=== PATIENT | female | born 1940 | race African-American/Black ===

== ENCOUNTER 2017-04-09 12:41 | Inpatient (IN) | payer OTHER, BC ==
[2017-04-09 12:47] VITALS: BMI 28.8
[2017-04-09] MEDS ORDERED: CLINDAMYCIN IVPB 300 MG in DEXTROSE 5%-WATER - 48 ML IVPB ONE (13:55)
[2017-04-09] MEDS ORDERED: CLINDAMYCIN PHOSPHATE 600 MG/4 ML VIAL ONE (14:29)
[2017-04-09 14:36] LABS: BASOPHIL 1.3 % (0-2.0); EOSINOPHIL 0.9 % (0-4.5); MCHC 32.7 g/dl (32.0-36.0); MEAN CELL VOLUME 85.8 fl (80-96); MEAN PLT VOLUME 7.8 fl (7.5-11.1); NEUTROPHILS 84.6 % (42.8-82.8); PLATELET COUNT 483 K/MM3 (134-434); RDW 14.5 % (11.6-15.6); WHITE BLOOD COUNT 13.8 K/mm3 (4.0-10.0)
--- NOTE | 2017-04-09 14:40 | PDOC ---
History of Present Illness - General Chief Complaint: Wound Infection Stated Complaint: LEGS PAIN, ADMIT (PCP SENT) Time Seen by Provider: 04/09/17 13:29 History Source: Patient Exam Limitations: No Limitations - History of Present Illness Initial Comments: 04/09/17 13:46 87-year-old female sent in by Dr. Silvestre for evaluation of nonhealing chronic lower extremity wounds now suggestive of cellulitis. Patient states was seen earlier this week and then again today for redness and swelling of the thumb left lower extremity now with a draining wound to the side of left ankle. Patient denies fever, chills but does state pain and redness to the area. Patient states had an ultrasound a few days ago which was negative for DVT. Patient does have history of MRSA. Patient also states history of chronic venous stasis. Timing/Duration: getting worse Severity: moderate Associated Symptoms: reports: denies symptoms Past History - Travel Traveled outside of the country in the last 30 days: No Close contact w/someone who was outside of country & ill: No - Past Medical History Allergies/Adverse Reactions: Allergies Allergy/AdvReac Type Severity Reaction Status Date / Time Sulfa (Sulfonamide Allergy Severe Verified 04/09/17 12:43 Antibiotics) Home Medications: Ambulatory Orders Levothyroxine [Synthroid -] 100 mcg PO DAILY 03/23/14 Anemia: No Asthma: No Cancer: No Cardiac Disorders: No CVA: No COPD: No CHF: No Dementia: No Diabetes: No GI Disorders: No Disorders: No HTN: Yes (BORDERLINE) Hypercholesterolemia: No Liver Disease: No Seizures: No Thyroid Disease: Yes (HYPO) Other medical history: VENOUS STASIS - Surgical History Abdominal Surgery: Yes (ABDOMINAL SX WHILE , INTESTINAL OBSRU 1970) Appendectomy: No Cardiac Surgery: No Cholecystectomy: No Lung Surgery: No Neurologic Surgery: No Orthopedic Surgery: No - Suicide/Smoking/Psychosocial Hx Smoking History: Never smoked Have you smoked in the past 12 months: No If you are a former smoker, when did you quit?: 30 years ago Information on smoking cessation initiated: No Hx Alcohol Use: No Drug/Substance Use Hx: No Substance Use Type: None Hx Substance Use Treatment: No Patient Lives Alone: Yes Lives with/in: lives alone Review of Systems - Review of Systems Able to Perform ROS?: Yes Is the patient limited Jordanian proficient: No Constitutional: No: Symptoms Reported HEENTM: No: Symptoms Reported Respiratory: No: Symptoms reported Cardiac (ROS): Yes: Edema ABD/GI: No: Symptoms Reported Musculoskeletal: Yes: Muscle Pain (left calf) Integumentary: Yes: Erythema Neurological: No: Symptoms reported Hematologic/Lymphatic: No: Symptoms Reported *Physical Exam - Vital Signs Last Vital Signs Temp Pulse Resp BP Pulse Ox 98.2 F 84 18 152/82 100 04/09/17 12:44 04/09/17 12:44 04/09/17 12:44 04/09/17 12:44 04/09/17 12:44 - Physical Exam General Appearance: Yes: Nourished, Appropriately Dressed. No: Apparent Distress HEENT: negative: Pale Conjunctivae Respiratory/Chest: positive: Lungs Clear, Normal Breath Sounds. negative: Respiratory Distress, Accessory Muscle Use Cardiovascular: positive: Regular Rhythm, Regular Rate. negative: Murmur Extremity: positive: Normal Capillary Refill, Normal Range of Motion, Tender ( the erythema to the distal aspect of left lower extremity with 1 x 2cm opened wound to the lateral aspect of malleolus. ) Integumentary: positive: Other (8 x 5 cm opened pink wound to the medial aspect of right malleolus) Neurologic: positive: Motor Strength 5/5 Heart Score/ECG Review - ECG Intrepretation Rhythm: Regular Rhythm (rate 73. normal sinus rhythm.) - [place]: Left [place] Deviation ED Treatment Course - LABORATORY CBC & Chemistry Diagram: 04/11/17 07:00 04/11/17 07:00 - RADIOLOGY Radiology Studies Ordered: Category Date Time Status CHEST X-RAY PORTABLE* [RAD] Stat Radiology 04/09/17 13:53 Ordered Medical Decision Making - Medical Decision Making 04/09/17 14:58 Patient here for a nonhealing chronic leg wounds from venous stasis now with redness and swelling to the left lower extremity. Patient had a duplex done 2 days ago which was negative now sent here by Dr. Silvestre for admission and treatment of cellulitis. Septic workup initiated. Patient ordered for clindamycin Since patient has history of MRSA 04/09/17 15:52 Laboratory Tests 04/09/17 04/09/17 04/09/17 13:20 14:23 14:23 WBC 13.8 H D Hgb 9.7 L D Hct 29.6 L Plt Count 483 H D Neutrophils % 84.6 H D PT with INR 15.60 H INR 1.41 H Creatine Kinase Troponin I Urine Protein 2+ H Urine Blood 3+ H Urine Urobilinogen Negative Urine RBC 83 Urine WBC 41 04/09/17 14:23 WBC Hgb Hct Plt Count Neutrophils % PT with INR INR Creatine Kinase 205 H Troponin I 0.11 H Urine Protein Urine Blood Urine Urobilinogen Urine RBC Urine WBC Chest x-ray negative for acute findings. As per Dr. Silvestre he is requesting that is affiliated at [facility] with affiliation at [facility]. *DC/Admit/Observation/Transfer Diagnosis at time of Disposition: Cellulitis Qualifiers: Site of cellulitis: extremity Site of cellulitis of extremity: lower extremity Laterality: unspecified laterality Qualified Code(s): L03.119 - Cellulitis of unspecified part of limb - Discharge Dispostion Admit: Yes
[2017-04-09 14:48] LABS: INR 1.41 (0.82-1.09); PROTHROMBIN TIME (PATIENT) 15.6 SEC (9.98-11.88)
[2017-04-09 15:00] LABS: ANION GAP 11 (8-16); BILIRUBIN,TOTAL 0.6 mg/dL (0.2-1.0); CALCIUM 9.1 mg/dL (8.5-10.1); CO2 27 mmol/L (21-32); CREATININE 1.5 mg/dL (0.55-1.02); GLUCOSE,RANDOM 115 mg/dL (74-106); SGPT/ALT 20 U/L (12-78); TOT PROT 7.3 g/dl (6.4-8.2)
[2017-04-09 15:02] LABS: ALK PHOS 84 U/L (45-117); TROPONIN I 0.11 ng/ml (0.00-0.05)
[2017-04-09 15:04] LABS: CPK 205 IU/L (26-192); SGOT/AST 27 U/L (15-37)
[2017-04-09 15:35] LABS: URINE APPEARANCE CLOUDY; URINE BILIRUBIN NEGATIVE (NEGATIVE); URINE BLOOD 3+ (NEGATIVE); URINE COLOR YELLOW; URINE GLUCOSE (UA) NEGATIVE (NEGATIVE); URINE KETONE NEGATIVE (NEGATIVE); URINE NITRITE NEGATIVE (NEGATIVE); URINE UROBILINOGEN NEGATIVE mg/dL (0.2-1.0)
[2017-04-09 15:37] LABS: URINE LEUK ESTERASE 1+ (NEGATIVE); URINE PROTEIN 2+ (NEGATIVE)
[2017-04-09 15:39] LABS: GRANULAR CASTS 8 /lpf; URINE HYALINE CAST 1 /lpf; URINE MUCUS RARE; URINE RBC 83 /hpf (0-3); URINE WBC 41 /hpf (3-5)
[2017-04-09] MEDS ORDERED: VANCOMYCIN 1,250 MG in DEXTROSE 5%-WATER - 250 ML IVPB ONE (17:25)
[2017-04-09] MEDS ORDERED: PIPERACILLIN/TAZOB 3.375 GM 3.375 GM in DEXTROSE 5%-WATER - 50 ML IVPB ONE (17:26)
[2017-04-09] MEDS ORDERED: ASPIRIN 325 MG TABLET PO ONE (17:30)
--- NOTE | 2017-04-09 17:39 | HP ---
CHIEF COMPLAINT: worsening chronic venous ulcers PCP: none HISTORY OF PRESENT ILLNESS: This is an 77 year old female with PMHx of nonhealing chronic RLE venous ulcer, borderline hypertension, polymyalgia, hypothyroidism, who was sent into the ED by Dr. Silvestre for b/l lower extremity cellulitis. The patient reports that she has had her RLE ulcer for about 1 year now. In the past few weeks, she has noticed that there is increased drainage from her LLE wound and more erythema. She reports more erythema and had a doppler that was negative for DVT a few days ago. The patient denies any fever, chills, shortness of breath, dizziness, headache, chest pain. Off note, the patient reports receiving treatment for pneumonia 3 weeks ago ( erythromycin and methylprenisolone) ER course was notable for: (1) WBC 18, Hgb 9.7, Hct 29.6, platelets 483, ESR 53, (2) Cr 1.5 (3) Trop 0.11 (4) EKG with NSR Recent Travel: denies PAST MEDICAL HISTORY: as above Social History: Smoking: denies Alcohol: denies Drugs: denies Family History: Allergies Sulfa (Sulfonamide Antibiotics) Allergy (Severe, Verified 04/09/17 12:43) "TONGUE SWELLED" HOME MEDICATIONS: Home Medications Medication Instructions Recorded Levothyroxine [Synthroid -] 100 mcg PO DAILY 03/23/14 Collagenase Clostridium Hist. 1 applic TP DAILY #90 applic 04/20/16 [Santyl] REVIEW OF SYSTEMS CONSTITUTIONAL: Absent: fever, chills, diaphoresis, generalized weakness, malaise, loss of appetite, weight change HEENT: Absent: rhinorrhea, nasal congestion, throat pain, throat swelling, difficulty swallowing, mouth swelling, ear pain, eye pain, visual changes CARDIOVASCULAR: Absent: chest pain, syncope, palpitations, irregular heart rate , lightheadedness, peripheral edema RESPIRATORY: Absent: cough, shortness of breath, dyspnea with exertion, orthopnea, wheezing, stridor, hemoptysis GASTROINTESTINAL:Absent: abdominal pain, abdominal distension, nausea, vomiting , diarrhea, constipation, melena, hematochezia GENITOURINARY: Absent: dysuria, frequency, urgency, hesitancy, hematuria, flank pain, genital pain MUSCULOSKELETAL: Absent: myalgia, arthralgia, joint swelling, back pain, neck pain SKIN: Chronic wounds x1 year to lower extremities. See above. Absent: rash, itching, pallor HEMATOLOGIC/IMMUNOLOGIC: Absent: easy bleeding, easy bruising, lymphadenopathy, frequent infections ENDOCRINE:Absent: unexplained weight gain, unexplained weight loss, heat intolerance, cold intolerance NEUROLOGIC: Absent: headache, focal weakness or paresthesias, dizziness, unsteady gait, seizure, mental status changes, bladder or bowel incontinence PHYSICAL EXAMINATION Vital Signs - 24 hr 04/09/17 12:44 Temperature 98.2 F Pulse Rate 84 Respiratory 18 Rate Blood Pressure 152/82 O2 Sat by Pulse 100 Oximetry (%) GENERAL: Awake, alert, and fully oriented, in no acute distress. HEAD: Normal with no signs of trauma. EYES: Pupils equal, round, sclera anicteric, conjunctiva clear. No lid lag. EARS, NOSE, THROAT: Ears normal. Moist mucous membranes. NECK: Normal range of motion LUNGS: Breath sounds equal, clear to auscultation bilaterally. No wheezes, and no crackles. No accessory muscle use. HEART: Regular rate and rhythm, normal S1 and S2 ABDOMEN: Soft, nontender, not distended, normoactive bowel sounds MUSCULOSKELETAL: Normal range of motion at all joints. No bony deformities or tenderness. No CVA tenderness. UPPER EXTREMITIES: 2+ pulses, warm, well-perfused. No cyanosis. No clubbing. No peripheral edema. LOWER EXTREMITIES: B/l lower extremity erythema, edema. Right medial ankle wound , mild odor. Left ankle wound. 2+ pulses, warm, well-perfused. NEUROLOGICAL: Cranial nerves II-XII intact. Normal speech. Normal gait. PSYCHIATRIC: Cooperative. Good eye contact. Appropriate mood and affect. CBCD WBC 13.8 K/mm3 (4.0-10.0) H D 04/09/17 14:23 RBC 3.45 M/mm3 (3.60-5.2) L 04/09/17 14:23 Hgb 9.7 GM/dL (10.7-15.3) L D 04/09/17 14:23 Hct 29.6 % (32.4-45.2) L 04/09/17 14:23 MCV 85.8 fl (80-96) 04/09/17 14:23 MCHC 32.7 g/dl (32.0-36.0) 04/09/17 14:23 RDW 14.5 % (11.6-15.6) 04/09/17 14:23 Plt Count 483 K/MM3 (134-434) H D 04/09/17 14:23 MPV 7.8 fl (7.5-11.1) 04/09/17 14:23 CMP Sodium 141 mmol/L (136-145) 04/09/17 14:23 Potassium 4.5 mmol/L (3.5-5.1) D 04/09/17 14:23 Chloride 103 mmol/L (98-107) 04/09/17 14:23 Carbon Dioxide 27 mmol/L (21-32) 04/09/17 14:23 Anion Gap 11 (8-16) 04/09/17 14:23 BUN 25 mg/dL (7-18) H D 04/09/17 14:23 Creatinine 1.5 mg/dL (0.55-1.02) H D 04/09/17 14:23 Creat Clearance w eGFR 33.76 (>60) 04/09/17 14:23 Random Glucose 115 mg/dL (74-106) H 04/09/17 14:23 Calcium 9.1 mg/dL (8.5-10.1) 04/09/17 14:23 Total Bilirubin 0.6 mg/dL (0.2-1.0) D 04/09/17 14:23 AST 27 U/L (15-37) D 04/09/17 14:23 ALT 20 U/L (12-78) 04/09/17 14:23 Alkaline Phosphatase 84 U/L (45-117) 04/09/17 14:23 Total Protein 7.3 g/dl (6.4-8.2) 04/09/17 14:23 Albumin 3.0 g/dl (3.4-5.0) L 04/09/17 14:23 CARDIAC ENZYMES Creatine Kinase 205 IU/L (26-192) H 04/09/17 14:23 Troponin I 0.11 ng/ml (0.00-0.05) H 04/09/17 14:23 Assessment: This is an 77 year old female with PMHx of nonhealing chronic RLE venous ulcer, borderline hypertension, polymyalgia, hypothyroidism, who was sent into the ED by Dr. Nirmala for b/l lower extremity cellulitis. Plan: 1) ID: B/l lower extremity cellulitis with chronic lower extremity ulcers - WBC elevated - Local wound care - Hx of MRSA, VRE, pseudomonas - Will give Vanco and Zosyn - F/u ID consult 2) Cardiology: Elevated troponin (0.11) - EKG NSR - F/u trop x2 - No evidence of ACS at this time - ASA 325 mg po once - Discussed with Dr. Alvarez who will evaluate the patient 3) : MYRTLE? - Cr 0.9 when she was here in 2013 - F/u labs in AM - If remains elevated, f/u urine studies (FeNa) and kidney/bladder ultrasound 4) Endocrine: hypothyroidism - Continue Synthroid 5) F/E/N: - Sodium controlled diet - Monitor electrolytes 6) Prophylaxis: - OOB ambulating - Heparin 5,000u sq q8h 7) Dispo: - Requires continued inpatient care CODE STATUS: FULL CODE Problem List - Problem (1) Cellulitis Code(s): L03.90 - CELLULITIS, UNSPECIFIED Qualifiers: Site of cellulitis: extremity Site of cellulitis of extremity: lower extremity Laterality: unspecified laterality Qualified Code(s): L03.119 - Cellulitis of unspecified part of limb (2) Wound infection Code(s): T14.8 - OTHER INJURY OF UNSPECIFIED BODY REGION L08.9 - LOCAL INFECTION OF THE SKIN AND SUBCUTANEOUS TISSUE, UNSP (3) Hypothyroid Code(s): E03.9 - HYPOTHYROIDISM, UNSPECIFIED (4) Elevated troponin Code(s): R74.8 - ABNORMAL LEVELS OF OTHER SERUM ENZYMES (5) Acute kidney injury Code(s): N17.9 - ACUTE KIDNEY FAILURE, UNSPECIFIED Visit type - Emergency Visit Emergency Visit: Yes Care time: The patient presented to the Emergency Department on the above date and was hospitalized for further evaluation of their emergent condition. - New Patient This patient is new to me today: Yes Date on this admission: 04/09/17 - Critical Care Critical Care patient: No
[2017-04-09] MEDS ORDERED: HEPARIN NA (PORCINE) 5,000 UNITS/ML 1ML VIAL ONE (19:07)
[2017-04-09] MEDS ORDERED: ASPIRIN 325 MG TABLET ONE (19:07)
[2017-04-09] MEDS ORDERED: PIPERACILLIN/TAZOB 3.375 GM 50 ML IVPB ONE (19:07)
[2017-04-09] MEDS: HEPARIN NA (PORCINE) 5,000 UNITS/ML 1ML VIAL SQ SCH (19:14)
--- NOTE | 2017-04-09 20:21 | EKG ---
Test Reason : Blood Pressure : / mmHG Vent. Rate : 073 BPM Atrial Rate : 073 BPM P-R Int : 142 ms QRS Dur : 088 ms QT Int : 402 ms P-R-T Axes : 038 -37 034 degrees QTc Int : 442 ms NORMAL SINUS RHYTHM LEFT AXIS DEVIATION VOLTAGE CRITERIA FOR LEFT VENTRICULAR HYPERTROPHY CANNOT RULE OUT SEPTAL INFARCT , AGE UNDETERMINED LEFT ANTERIOR FASCICULAR BLOCK ABNORMAL ECG WHEN COMPARED WITH ECG OF 20-APR-2014 22:14, NONSPECIFIC T WAVE ABNORMALITY NO LONGER EVIDENT IN INFERIOR LEADS ABSENCE OF PVCs REPEAT EKG IF CLINICALLY INDICATED Confirmed by RDAHA CHAPARRO MD ([id number]) on 04/09/2017 8:21:40 PM Referred By: Confirmed By:RADHA CHAPARRO MD
--- NOTE | 2017-04-09 21:46 | CON.CARD ---
Consult Consult Specialty:: cardiology - History of Present Illness History of Present Illness: 87-year-old black female sent in by Dr. Silvestre for evaluation of nonhealing chronic lower extremity wounds now suggestive of cellulitis. Patient states was seen earlier this week and then again today for redness and swelling of the thumb, bilateral lower extremity wounds and swelling, now with a draining wound to the side of left ankle. Patient denies fever, chills but does state pain and redness to the area. Patient states had an ultrasound a few days ago which was negative for DVT. Patient does have history of MRSA. Patient also states history of chronic venous stasis. Timing/Duration: getting worse Severity: moderate Associated Symptoms: reports: denies symptoms - History Source History Provided By: Patient, Medical Record Limitations to Obtaining History: No Limitations - Past Medical History Cardio/Vascular: Yes: HTN Renal/: Yes: Renal Inusuff Reproductive: Yes: Postmenopausal ...: No Heme/Onc: Yes: Anemia Endocrine: Yes: Hypothyroidism Dermatology: Yes: Other (open LE wounds) - Past Surgical History Additional Surgical History: excision debridement of right ankle ulcer 2013 - Alcohol/Substance Use Hx Alcohol Use: No - Smoking History Smoking history: Never smoked Have you smoked in the past 12 months: No If you are a former smoker, when did you quit?: 30 years ago Home Medications - Allergies Allergies/Adverse Reactions: Allergies Allergy/AdvReac Type Severity Reaction Status Date / Time Sulfa (Sulfonamide Allergy Severe Verified 04/09/17 12:43 Antibiotics) - Home Medications Home Medications: Ambulatory Orders Levothyroxine [Synthroid -] 100 mcg PO DAILY 03/23/14 Family Disease History - Family Disease History Family History: Denies Review of Systems - Review of Systems Constitutional: reports: Weakness Eyes: reports: No Symptoms HENT: reports: No Symptoms Neck: reports: No Symptoms Cardiovascular: reports: No Symptoms Respiratory: reports: No Symptoms Gastrointestinal: reports: No Symptoms Genitourinary: reports: No Symptoms Breasts: reports: No Symptoms Reported Musculoskeletal: reports: Muscle Weakness Integumentary: reports: Wound Neurological: reports: No Symptoms Endocrine: reports: No Symptoms Hematology/Lymphatic: reports: No Symptoms Psychiatric: reports: No Symptoms - Risk Factors Known Risk Factors: Yes: Age, Physical Inactivity, Race, Other (PAD; CHF) Vital Signs: Vital Signs Temperature 98.2 F 04/09/17 12:44 Pulse Rate 84 04/09/17 18:55 Respiratory Rate 18 04/09/17 18:55 Blood Pressure 131/75 04/09/17 18:55 O2 Sat by Pulse Oximetry (%) 100 04/09/17 12:44 Constitutional: Yes: Calm Eyes: Yes: WNL HENT: Yes: WNL Neck: Yes: WNL Respiratory: Yes: Regular Gastrointestinal: Yes: Soft Renal/: No: Anuria Cardiovascular: Yes: Regular Rate and Rhythm JVD: No Carotid Bruit: No PMI: Non-Displaced Heart Sounds: Yes: S1, S2 Murmur: Yes: Systolic Murmur, Grade 2 Extremities: Yes: Cool Edema: No Peripheral Pulses WNL: No Peripheral Pulses: 1+ Left Doralis Pedis, 1+ Right Dorsalis Pedis Integumentary: Yes: Venous Stasis Changes, Other (right ankle wound bandaged ( dry)) - Other Data Labs, Other Data: INR, PTT INR 1.41 (0.82-1.09) H 04/09/17 14:23 Troponin, BNP 04/09/17 19:30 Troponin I 0.09 H Troponin, BNP 04/09/17 19:30 Troponin I 0.09 H Imaging - Results EKG: Image Reviewed (NSR; LVH; Qs in V1 and V2 (r/o old septal infarct); LAFB) Problem List - Problems (1) Acute kidney injury Code(s): N17.9 - ACUTE KIDNEY FAILURE, UNSPECIFIED (2) Cellulitis Code(s): L03.90 - CELLULITIS, UNSPECIFIED Qualifiers: Site of cellulitis: extremity Site of cellulitis of extremity: lower extremity Laterality: unspecified laterality Qualified Code(s): L03.119 - Cellulitis of unspecified part of limb (3) Elevated troponin Assessment/Plan: 0.11; normal CK. F/u TNI serially. ECHO for LVEF, wall motion, valve status. Multiple cardiac risks (age; CHF; HTN; ?lipids; sedentary). Denies prior cardiac workup. Stress MIBI when stable, if not done recently. Code(s): R74.8 - ABNORMAL LEVELS OF OTHER SERUM ENZYMES (4) Hypothyroid Assessment/Plan: f/u TSH. F/u lipid levels. Code(s): E03.9 - HYPOTHYROIDISM, UNSPECIFIED (5) Wound infection Assessment/Plan: f/u with vascular surgeon. Code(s): T14.8 - OTHER INJURY OF UNSPECIFIED BODY REGION L08.9 - LOCAL INFECTION OF THE SKIN AND SUBCUTANEOUS TISSUE, UNSP
[2017-04-10] MEDS: HEPARIN NA (PORCINE) 5,000 UNITS/ML 1ML VIAL SQ SCH ×3 (01:27→17:16)
[2017-04-10] MEDS ORDERED: oxyCODONE HCL 5 MG TABLET PO ONE (01:45)
[2017-04-10] MEDS ORDERED: ACETAMINOPHEN 325 MG TABLET (FP) PO ONE (01:45)
[2017-04-10] MEDS: LEVOTHYROXINE NA 100 MCG TABLET (FP) PO SCH (07:03)
[2017-04-10 07:16] LABS: BASOPHIL 1.1 % (0-2.0); EOSINOPHIL 3.2 % (0-4.5); MCH 28.9 pg (25.7-33.7); MCHC 33.6 g/dl (32.0-36.0); MEAN CELL VOLUME 85.8 fl (80-96); MEAN PLT VOLUME 7.8 fl (7.5-11.1); NEUTROPHILS 73.8 % (42.8-82.8); PLATELET COUNT 390 K/MM3 (134-434); RDW 14.7 % (11.6-15.6)
[2017-04-10 07:42] LABS: ALBUMIN 2.2 g/dl (3.4-5.0); ANION GAP 7 (8-16); CALCIUM 7.8 mg/dL (8.5-10.1); CO2 26 mmol/L (21-32); CREATININE 1.6 mg/dL (0.55-1.02); GLUCOSE,RANDOM 86 mg/dL (74-106); SGOT/AST 15 U/L (15-37); SGPT/ALT 14 U/L (12-78)
[2017-04-10 07:45] LABS: ALK PHOS 68 U/L (45-117); BILIRUBIN,TOTAL 0.4 mg/dL (0.2-1.0); TOT PROT 5.6 g/dl (6.4-8.2)
[2017-04-10] MEDS ORDERED: morphine CARPU-JECT 2 MG/1 ML DISP.SYRIN IVPUSH ONE (08:45)
[2017-04-10 08:53] LABS: CPK 95 IU/L (26-192)
--- NOTE | 2017-04-10 08:53 | PN ---
Physical Exam: SUBJECTIVE: Patient seen and examined. She complains of pain, she is exquisitely tender to her LLE. Denies fever, chills, nausea. OBJECTIVE: Vital Signs Period Temp Pulse Resp BP Sys/Horn Pulse Ox Last 24 Hr 98.3 F-98.5 F 64-84 18-20 120-131/57-75 94-94 PE Neuro: alert, awake, cn 2-12intact Pulm: CTAB CV: s1 s2 rrr no mrg Abd: s nt nd +bs Ext: RLE medial open wound clean, pink, mild slough, LLE erythema to ankle, ++ tenderness to ankle, + DP pulse, warm, L foot closed lateral wound Laboratory Results - last 24 hr 04/09/17 04/10/17 04/10/17 19:30 06:10 06:10 WBC 10.0 RBC 2.86 L Hgb 8.3 L D Hct 24.5 L D MCV 85.8 MCH 28.9 MCHC 33.6 RDW 14.7 Plt Count 390 MPV 7.8 Neutrophils % 73.8 Lymphocytes % 15.3 D Monocytes % 6.6 Eosinophils % 3.2 D Basophils % 1.1 Sodium 139 Potassium 4.1 Chloride 106 Carbon Dioxide 26 Anion Gap 7 L BUN 28 H Creatinine 1.6 H Creat Clearance w eGFR 31.34 Random Glucose 86 D Calcium 7.8 L Total Bilirubin 0.4 D AST 15 D ALT 14 D Alkaline Phosphatase 68 Creatine Kinase Cancelled Troponin I Cancelled Total Protein 5.6 L D Albumin 2.2 L D Active Medications Generic Name Dose Route Start Last Admin Trade Name Freq PRN Reason Stop Dose Admin Aspirin 81 mg 04/10/17 10:00 Asa - PO DAILY MILES Collagenase 1 applic 04/10/17 10:00 Santyl - TP DAILY MILES Heparin Sodium (Porcine) 5,000 unit 04/09/17 18:00 04/10/17 01:27 Heparin - SQ 5,000 unit Q8H-IV MILES Administration Sodium Chloride 1,000 mls @ 100 mls/hr 04/10/17 08:45 Normal Saline - IV ASDIR MILES Levothyroxine Sodium 100 mcg 04/10/17 07:00 04/10/17 07:03 Synthroid - PO 100 mcg DAILY@0700 MILES Administration Morphine Sulfate 1 mg 04/10/17 08:45 Morphine Injection - IVPUSH 04/10/17 08:46 ONCE ONE Ondansetron HCl 4 mg 04/10/17 08:46 Zofran Injection IVPB Q6H PRN NAUSEA Oxycodone HCl 5 mg 04/10/17 08:46 Roxicodone - PO Q4H PRN PAIN Assessment: 77 year old female with PMHx of non healing chronic RLE venous ulcer , borderline hypertension, polymyalgia, hypothyroidism, sent to ED by Dr. Silvestre for b/l lower extremity cellulitis. Plan: 1. B/l lower extremity cellulitis with chronic lower extremity ulcers - Hx of MRSA, VRE, pseudomonas - Leukocytosis wnl - Local wound care - Zosyn and vanco x1 dose given yesterday - Further antibiotics per ID today - Dr. Silvestre to follow 2. Elevated troponin - x2 trop down, AM trop pending - No ischemic events noted on tele - ECHO today - Stress when medically stable - Continue ASA 3. MYRTLE? - Previous cr 0.9 in 2013 - Start fluids today - Will trend, if worsens will obtain renal studies 4. Hypothyroidism - TSH pending - Continue Synthroid 5. Prophylaxis - OOB ambulating - Heparin 5000sq q8 Visit type - Emergency Visit Emergency Visit: Yes ED Registration Date: 04/09/17 Care time: The patient presented to the Emergency Department on the above date and was hospitalized for further evaluation of their emergent condition. - New Patient This patient is new to me today: Yes Date on this admission: 04/10/17 - Critical Care Critical Care patient: No
[2017-04-10 09:00] LABS: TROPONIN I 0.08 ng/ml (0.00-0.05)
[2017-04-10] MEDS: SODIUM CHLORIDE 1,000 ML IV SCH (09:05)
[2017-04-10] MEDS ORDERED: BISACODYL 5 MG TABLET.DR (FP) PO ONE (09:30)
--- NOTE | 2017-04-10 09:34 | PN ---
Progress Note (short form) - Note Progress Note: ID consult dictated imp/reccd severe left leg pain and swelling with erythema has had this for last 3 weeks and worsening had ultrasound last week in Dr Kent office told veins were ok no fevers worsening pain, cannot ambulate recent pneumonia treated with zithromax and steroids- didnot help her leg history of polymyalgia history of venous stasis ulcer right ulcer- medial malleolus-had healed completely in the past, now back for the last one year +DP pulse pain and erythema left foot and lower leg- not sure this is a true infection, ? vasculitis- ie lipodermatosclerosis? will d/w vascular surgery esr/crp in am renal insuff (+NSAIA use) history of MRSA/pseudomonas agree with vancomycin based on levels zosyn adjusted for renal insufficiency d/w hospitalist Problem List - Problems (1) Cellulitis Code(s): L03.90 - CELLULITIS, UNSPECIFIED Qualifiers: Site of cellulitis: extremity Site of cellulitis of extremity: lower extremity Laterality: unspecified laterality Qualified Code(s): L03.119 - Cellulitis of unspecified part of limb (2) Acute kidney injury Code(s): N17.9 - ACUTE KIDNEY FAILURE, UNSPECIFIED
--- NOTE | 2017-04-10 09:48 | PN ---
Progress Note, Physician History of Present Illness: 87-year-old black female sent in by Dr. Silvestre for evaluation of nonhealing chronic lower extremity wounds now suggestive of cellulitis. Patient states was seen earlier this week and then again today for redness and swelling of the thumb, bilateral lower extremity wounds and swelling, now with a draining wound to the side of left ankle. Patient denies fever, chills but does state pain and redness to the area. Patient states had an ultrasound a few days ago which was negative for DVT. Patient does have history of MRSA. Patient also states history of chronic venous stasis. - Current Medication List Current Medications: Active Medications Aspirin (Asa -) 81 mg PO DAILY [facility] Collagenase (Santyl -) 1 applic TP DAILY [facility] Docusate Sodium (Colace -) 100 mg PO BID [facility] Heparin Sodium (Porcine) (Heparin -) 5,000 unit SQ Q8H-IV [facility] Last Admin: 04/10/17 01:27 Dose: 5,000 unit Sodium Chloride (Normal Saline -) 1,000 mls @ 100 mls/hr IV ASDIR [facility] Last Admin: 04/10/17 09:05 Dose: 100 mls/hr Levothyroxine Sodium (Synthroid -) 100 mcg PO DAILY@0700 [facility] Last Admin: 04/10/17 07:03 Dose: 100 mcg Ondansetron HCl (Zofran Injection) 4 mg IVPB Q6H PRN PRN Reason: NAUSEA Oxycodone HCl (Roxicodone -) 5 mg PO Q4H PRN PRN Reason: PAIN Polyethylene Glycol (Miralax (For Daily Use) -) 17 gm PO DAILY [facility] Senna (Senna -) 1 tab PO HS [facility] - Objective Vital Signs: Vital Signs Temperature 98.3 F 04/10/17 05:55 Pulse Rate 72 04/10/17 05:55 Respiratory Rate 18 04/10/17 05:55 Blood Pressure 120/57 04/10/17 05:55 O2 Sat by Pulse Oximetry (%) 94 L 04/10/17 00:00 Eyes: Yes: WNL, Conjunctiva Clear, EOM Intact HENT: Yes: WNL, Atraumatic, Normocephalic Neck: Yes: WNL, Supple, Trachea Midline Cardiovascular: Yes: WNL, Regular Rate and Rhythm, Murmur, S1, S2 Respiratory: Yes: WNL, Regular, CTA Bilaterally Gastrointestinal: Yes: WNL, Normal Bowel Sounds Genitourinary: Yes: WNL Musculoskeletal: Yes: WNL Extremities: Yes: WNL Edema: Yes Edema: LLE: 1+, RLE: 1+ Integumentary: Yes: WNL Neurological: Yes: WNL, Alert, Oriented ...Motor Strength: WNL Psychiatric: Yes: WNL Labs: CBC, BMP 04/10/17 06:10 04/10/17 06:10 INR, PTT INR 1.41 (0.82-1.09) H 04/09/17 14:23 Assessment/Plan Problems (1) Acute kidney injury Code(s): N17.9 - ACUTE KIDNEY FAILURE, UNSPECIFIED (2) Cellulitis Code(s): L03.90 - CELLULITIS, UNSPECIFIED Qualifiers: Site of cellulitis: extremity Site of cellulitis of extremity: lower extremity Laterality: unspecified laterality Qualified Code(s): L03.119 - Cellulitis of unspecified part of limb (3) Elevated troponin Assessment/Plan: 0.11; normal CK. F/u TNI serially. ECHO for LVEF, wall motion, valve status. Multiple cardiac risks (age; CHF; HTN; ?lipids; sedentary). Denies prior cardiac workup. Stress MIBI when stable, if not done recently. Code(s): R74.8 - ABNORMAL LEVELS OF OTHER SERUM ENZYMES (4) Hypothyroid Assessment/Plan: f/u TSH. F/u lipid levels. Code(s): E03.9 - HYPOTHYROIDISM, UNSPECIFIED (5) Wound infection Assessment/Plan: f/u with vascular surgeon. Code(s): T14.8 - OTHER INJURY OF UNSPECIFIED BODY REGION L08.9 - LOCAL INFECTION OF THE SKIN AND SUBCUTANEOUS TISSUE, UNSP
[2017-04-10] MEDS ORDERED: PIPERACILLIN/TAZOB 3.375 GM/50 ML PRE-DOCKED IVPB SCH (10:00)
[2017-04-10] MEDS ORDERED: PIPERACILLIN/TAZOBACTAM 3.375 GM VIAL IVPB ONE ×2 (10:35→17:11)
[2017-04-10] MEDS ORDERED: PT OWN MED DRAWER 7, Y5N ONE ×2 (10:35→11:02)
[2017-04-10] MEDS ORDERED: DEXTROSE 5%-WATER - 50 ML IVPB ONE ×2 (10:36→17:12)
[2017-04-10] MEDS: PIPERACILLIN/TAZOB 3.375 GM 3.375 GM in DEXTROSE 5%-WATER - 50 ML IVPB SCH ×2 (10:39→17:16)
[2017-04-10] MEDS: ASPIRIN 81 MG CHEWABLE TABLETS PO SCH (10:40)
[2017-04-10] MEDS: DOCUSATE SODIUM 100 MG CAPSULE (FP) PO SCH ×2 (10:40→22:19)
[2017-04-10] MEDS: POLYETHYLENE GLYCOL 3350 119 GM BTL PO SCH (10:42)
--- NOTE | 2017-04-10 11:30 | EKG ---
Test Reason : Blood Pressure : / mmHG Vent. Rate : 082 BPM Atrial Rate : 082 BPM P-R Int : 162 ms QRS Dur : 094 ms QT Int : 412 ms P-R-T Axes : 042 -34 035 degrees QTc Int : 481 ms NORMAL SINUS RHYTHM LEFT AXIS DEVIATION VOLTAGE CRITERIA FOR LEFT VENTRICULAR HYPERTROPHY CANNOT RULE OUT SEPTAL INFARCT (CITED ON OR BEFORE 09-APR-2017) ABNORMAL ECG WHEN COMPARED WITH ECG OF 09-APR-2017 13:45, NO SIGNIFICANT CHANGE WAS FOUND Confirmed by AVELINO KUO, NATALIA ([id number]) on 04/10/2017 11:29:51 AM Referred By: Confirmed By:NATALIA YOU MD
--- NOTE | 2017-04-10 11:50 | CONSULT ---
Consult - History of Present Illness History of Present Illness: 77 year old woman with chronic venous stasis and ulcer of right ankle. SHe is scheduled for venous ablation right GSV in April. She presented last week with pain and swelling of the left leg. Duplex was negative for DVT. Yesterday she was seen with pain, redness and drainage from a new wound on the lateral left ankle area. - History Source History Provided By: Patient, Medical Record - Past Medical History Cardio/Vascular: Yes: HTN Renal/: Yes: Renal Inusuff ...: No Endocrine: Yes: Hypothyroidism Dermatology: Yes: Other (open LE wounds) - Past Surgical History Additional Surgical History: excision debridement of right ankle ulcer 2013 - Alcohol/Substance Use Hx Alcohol Use: No - Smoking History Smoking history: Never smoked Have you smoked in the past 12 months: No If you are a former smoker, when did you quit?: 30 years ago Home Medications - Allergies Allergies/Adverse Reactions: Allergies Allergy/AdvReac Type Severity Reaction Status Date / Time Sulfa (Sulfonamide Allergy Severe Verified 04/09/17 12:43 Antibiotics) - Home Medications Home Medications: Ambulatory Orders Levothyroxine [Synthroid -] 100 mcg PO DAILY 03/23/14 Physical Exam Vital Signs: Vital Signs Temperature 98.3 F 04/10/17 05:55 Pulse Rate 72 04/10/17 05:55 Respiratory Rate 18 04/10/17 05:55 Blood Pressure 120/57 04/10/17 05:55 O2 Sat by Pulse Oximetry (%) 94 L 04/10/17 00:00 Edema: Yes Edema: LLE: 2+, RLE: 2+ Wound/Incision: Yes: Other (Right medial malleolar ulcer with fibrinous exudate. Left lateral ankle blister with local erythema.) Labs: CBC, BMP 04/10/17 06:10 04/10/17 06:10 Problem List - Problems (1) Cellulitis Assessment/Plan: Improved exam since yesterday. Continue IV and topical antibiotics. Leg elevation. 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
[2017-04-10] MEDS ORDERED: MUPIROCIN 2% TOPICAL OINTMENT 22 GM TUBE TP SCH (12:00)
[2017-04-10] MEDS: COLLAGENASE CLOSTRIDIUM HIST. 30 GRAMS TUBE TP SCH (12:19)
[2017-04-10] MEDS: oxyCODONE HCL 5 MG TABLET PO PRN ×2 (13:33→22:21)
[2017-04-10] MEDS: ONDANSETRON 4 MG/2 ML VIAL IVPB PRN ×2 (13:39→23:06)
--- NOTE | 2017-04-10 19:10 | CONS ---
DATE OF CONSULTATION: DATE OF DICTATION: 04/10/2017 INFECTIOUS DISEASE CONSULTATION REQUESTING PHYSICIAN: Hospitalist Service CONSULTING PHYSICIAN: Funmi Sultana M.D. HISTORY OF PRESENT ILLNESS: This is a 77-year-old woman with a history of venous stasis and right leg venous stasis ulcer who was sent to the emergency room by Dr. Silvestre. She has a prior history of recurrent ulcers on her right leg. They have healed in the past back in 2014, recurred on the right medial malleolus about a year ago, and she has had a chronic ulcer since that time. Over the last 3 weeks she started having pain and erythema; in the left leg, the pain has reached a point where she is unable to ambulate. She has no fevers or chills. She had an outpatient duplex that was negative for DVT. She has had no fevers or chills. No scratches to her leg. ALLERGIES: She is allergic to SULFA drugs. MEDICATIONS AT HOME: Include Synthroid and Santyl. PAST MEDICAL HISTORY: Notable for borderline hypertension, she has a history of hypothyroidism, venous stasis ulcers. She has polymyalgia rheumatica and takes steroids p.r.n. She recently had pneumonia 3 weeks ago and was treated with Zithromax and steroids. SURGICAL HISTORY: Notable for thyroid surgery. FAMILY HISTORY: Noncontributory. SOCIAL HISTORY: She lives with her son. 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 She quit smoking 30 years ago. REVIEW OF SYSTEMS: She denies any cough. She denies any shortness of breath. She notes exquisite pain in the left leg. She has been taking Motrin for the last 3 weeks. She upped her Motrin dose to 3 tabs every 5 hours over the last 4-5 days due to increasing pain. She denies any trauma to her leg. PHYSICAL EXAMINATION: Vital signs: Temperature 98.3, pulse 72, blood pressure 120/57, respiratory rate 18. HEENT: Normocephalic. Eyes are anicteric. Neck: Supple. Lungs: Diminished breath sounds at the bases. Heart: Regular rate and rhythm. Abdomen: Soft, nontender. Extremities: Notable for a large left medial malleolar ulcer. It is clean. She has no surrounding erythema. She has a 2+ dorsalis pedis pulse. The left foot is warm. Again, palpable dorsalis pedis pulse. She has evidence of some erythema and discoloration of the lower leg, mainly around the ankle extending to her foot. It is erythematous and exquisitely tender to touch. The white count on admission was 13.8, this morning is 10, hemoglobin is 8.3, INR is 1.4. BUN and creatinine are 28 and 1.6. Normal LFTs. Her TSH is 19. Her urinalysis is 41 white cells. Cultures are pending. Chest x-ray shows some bibasilar changes versus infiltrates and with shallow inspiration. IMPRESSION: In summary, this is a 77-year-old woman with pain and erythema of the left foot, possible cellulitis. She has a history of methicillin resistant Staphylococcus aureus and pseudomonas in the past. Would agree with vancomycin and Zosyn. She has acute kidney injury, most likely secondary to nonsteroidal use. Would follow vancomycin levels and adjust the Zosyn dosage. I am not sure this is really a true infection of her leg. Concern would also include vasculitis, possibly lipodermatosclerosis. Will discuss with vascular. Will check a sedimentation rate and C-reactive protein as well. Further recommendations to follow. Rao [id number] MTDD
[2017-04-10] MEDS: SENNOSIDES 8.6MG TABLET (FP) PO SCH (22:18)
[2017-04-10] MEDS: MUPIROCIN CA 2% TOPICAL CREAM 15 GM TUBE TP SCH (22:19)
[2017-04-11] MEDS ORDERED: PIPERACILLIN/TAZOBACTAM 3.375 GM VIAL IVPB ONE ×3 (02:02→17:14)
[2017-04-11] MEDS ORDERED: DEXTROSE 5%-WATER - 50 ML IVPB ONE ×3 (02:03→17:14)
[2017-04-11] MEDS: HEPARIN NA (PORCINE) 5,000 UNITS/ML 1ML VIAL SQ SCH ×3 (02:10→18:16)
[2017-04-11] MEDS: PIPERACILLIN/TAZOB 3.375 GM 3.375 GM in DEXTROSE 5%-WATER - 50 ML IVPB SCH ×3 (02:10→17:49)
[2017-04-11] MEDS: oxyCODONE HCL 5 MG TABLET PO PRN (05:36)
[2017-04-11] MEDS: ONDANSETRON 4 MG/2 ML VIAL IVPB PRN (05:37)
[2017-04-11] MEDS: LEVOTHYROXINE NA 100 MCG TABLET (FP) PO SCH (06:10)
[2017-04-11 07:55] LABS: BASOPHIL 0.8 % (0-2.0); EOSINOPHIL 1.9 % (0-4.5); MCH 27.8 pg (25.7-33.7); MCHC 32.6 g/dl (32.0-36.0); MEAN CELL VOLUME 85.4 fl (80-96); MEAN PLT VOLUME 7.7 fl (7.5-11.1); NEUTROPHILS 80.4 % (42.8-82.8); PLATELET COUNT 388 K/MM3 (134-434); RDW 14.7 % (11.6-15.6); WHITE BLOOD COUNT 11.9 K/mm3 (4.0-10.0)
[2017-04-11 08:18] LABS: ALBUMIN 2.1 g/dl (3.4-5.0); ANION GAP 6 (8-16); CALCIUM 7.7 mg/dL (8.5-10.1); CO2 26 mmol/L (21-32); CREATININE 1.8 mg/dL (0.55-1.02); GLUCOSE,RANDOM 92 mg/dL (74-106); SGOT/AST 15 U/L (15-37); SGPT/ALT 15 U/L (12-78)
[2017-04-11 08:19] LABS: ALK PHOS 64 U/L (45-117); BILIRUBIN,TOTAL 0.5 mg/dL (0.2-1.0); TOT PROT 5.4 g/dl (6.4-8.2)
--- NOTE | 2017-04-11 10:47 | PN ---
Physical Exam: SUBJECTIVE: Patient seen and examined. She feels a little better, however still very tender. She would like to ambulate. OBJECTIVE: Vital Signs Period Temp Pulse Resp BP Sys/Horn Pulse Ox Last 24 Hr 98.4 F-99.8 F 68-83 16-18 122-140/53-56 94 PE Neuro: alert, awake, cn 2-12intact Pulm: CTAB CV: s1 s2 rrr no mrg Abd: s nt nd +bs Ext: RLE medial open wound clean, pink, mild slough, LLE erythema to ankle- less , + tenderness to ankle, + DP pulse, warm- less , L foot closed lateral wound Laboratory Results - last 24 hr 04/11/17 04/11/17 04/11/17 07:00 07:00 07:00 WBC 11.9 H RBC 2.80 L Hgb 7.8 L Hct 24.0 L MCV 85.4 MCH 27.8 MCHC 32.6 RDW 14.7 Plt Count 388 MPV 7.7 Neutrophils % 80.4 Lymphocytes % 11.6 D Monocytes % 5.3 Eosinophils % 1.9 Basophils % 0.8 ESR Sodium 140 Potassium 4.2 Chloride 108 H Carbon Dioxide 26 Anion Gap 6 L BUN 27 H Creatinine 1.8 H Creat Clearance w eGFR 27.36 Random Glucose 92 Calcium 7.7 L Total Bilirubin 0.5 D AST 15 ALT 15 Alkaline Phosphatase 64 C-Reactive Protein Total Protein 5.4 L Albumin 2.1 L Random Vancomycin 6.497 04/10/17 04/11/17 06:10 07:00 ESR 80 H TSH 19.10 H Active Medications Generic Name Dose Route Start Last Admin Trade Name Byron PRN Reason Stop Dose Admin Aspirin 81 mg 04/10/17 10:00 04/10/17 10:40 Asa - PO 81 mg DAILY [facility] Administration Collagenase 1 applic 04/10/17 10:00 04/10/17 12:19 Santyl - TP Not Given DAILY [facility] Docusate Sodium 100 mg 04/10/17 10:00 04/10/17 22:19 Colace - PO 100 mg BID [facility] Administration Heparin Sodium (Porcine) 5,000 unit 04/09/17 18:00 04/11/17 02:10 Heparin - SQ 5,000 unit Q8H-IV [facility] Administration Sodium Chloride 1,000 mls @ 100 mls/hr 04/10/17 08:45 04/10/17 09:05 Normal Saline - IV 100 mls/hr ASDIR [facility] Administration Piperacillin Sod/Tazobactam 50 mls @ 100 mls/hr 04/10/17 10:35 04/11/17 02:10 Sod 3.375 gm/ Dextrose IVPB 100 mls/hr Q8H-IV [facility] Administration Levothyroxine Sodium 100 mcg 04/10/17 07:00 04/11/17 06:10 Synthroid - PO 100 mcg DAILY@0700 [facility] Administration Mupirocin 1 applic 04/10/17 22:00 04/10/17 22:19 Bactroban 2% Cream - TP 1 applic BID [facility] Administration Ondansetron HCl 4 mg 04/10/17 08:46 04/11/17 05:37 Zofran Injection IVPB 4 mg Q6H PRN Administration NAUSEA Oxycodone HCl 5 mg 04/10/17 08:46 04/11/17 05:36 Roxicodone - PO 5 mg Q4H PRN Administration PAIN Polyethylene Glycol 17 gm 04/10/17 10:00 04/10/17 10:42 Miralax (For Daily Use) - PO 17 gm DAILY [facility] Administration Senna 1 tab 04/10/17 22:00 04/10/17 22:18 Senna - PO 1 tab HS [facility] Administration Imaging: - Outpt doppler Us: negative for dvt Assessment: 77 year old female with PMHx of non healing chronic RLE venous ulcer , borderline hypertension, polymyalgia, hypothyroidism, sent to ED by Dr. Silvestre for b/l lower extremity cellulitis. Plan: 1. B/l lower extremity cellulitis with chronic lower extremity ulcers d/t venous stasis - Possible: lipodermatosclerosis? - Hx of MRSA, VRE, pseudomonas - Zosyn (day 2, renal dosed) 2. MYRTLE - Pt endorsed NSAID use with increase in last month to 3tabs q5hr - Cr rising - Obtain renal/bladder US - Send urine studies - Continue fluids - Nephrology requested 3. Elevated troponin - r./o CT serial trops down trending - ECHO normal LVSF, size, RVSP 30-40, mild MR, TR - ASA daily - Stress can happen as outpt 4. Hypothyroidism - TSH elevated - Free / ordered - Continue Synthroid 5. Prophylaxis - OOB ambulating - Heparin 5000sq q8 Visit type - Emergency Visit Emergency Visit: Yes ED Registration Date: 04/09/17 Care time: The patient presented to the Emergency Department on the above date and was hospitalized for further evaluation of their emergent condition. - New Patient This patient is new to me today: No - Critical Care Critical Care patient: No
[2017-04-11] MEDS: morphine CARPU-JECT 2 MG/1 ML DISP.SYRIN IVPUSH PRN ×2 (11:04→17:46)
[2017-04-11] MEDS: DOCUSATE SODIUM 100 MG CAPSULE (FP) PO SCH ×2 (11:11→21:51)
[2017-04-11] MEDS: ASPIRIN 81 MG CHEWABLE TABLETS PO SCH (11:11)
[2017-04-11] MEDS: POLYETHYLENE GLYCOL 3350 119 GM BTL PO SCH (11:11)
[2017-04-11 11:23] LABS: FREE T4 1.23 ng/dl (0.76-1.46)
--- NOTE | 2017-04-11 11:48 | PN ---
Progress Note, Physician Chief Complaint: Pt sitting in chair; pain in left leg getting better after receiving morphine. History of Present Illness: 87-year-old black female sent in by Dr. Silvestre for evaluation of nonhealing chronic lower extremity wounds now suggestive of cellulitis. Patient states was seen earlier this week and then again today for redness and swelling of the thumb, bilateral lower extremity wounds and swelling, now with a draining wound to the side of left ankle. Patient denies fever, chills but does state pain and redness to the area. Patient states had an ultrasound a few days ago which was negative for DVT. Patient does have history of MRSA. Patient also states history of chronic venous stasis. Timing/Duration: getting worse Severity: moderate Associated Symptoms: reports: denies symptoms - Current Medication List Current Medications: Active Medications Aspirin (Asa -) 81 mg PO DAILY [facility] Last Admin: 04/11/17 11:11 Dose: 81 mg Collagenase (Santyl -) 1 applic TP DAILY [facility] Last Admin: 04/10/17 12:19 Dose: Not Given Docusate Sodium (Colace -) 100 mg PO BID [facility] Last Admin: 04/11/17 11:11 Dose: 100 mg Heparin Sodium (Porcine) (Heparin -) 5,000 unit SQ Q8H-IV [facility] Last Admin: 04/11/17 11:11 Dose: 5,000 unit Sodium Chloride (Normal Saline -) 1,000 mls @ 100 mls/hr IV ASDIR [facility] Last Admin: 04/10/17 09:05 Dose: 100 mls/hr Piperacillin Sod/Tazobactam (Sod 3.375 gm/ Dextrose) 50 mls @ 100 mls/hr IVPB Q8H-IV [facility] Last Admin: 04/11/17 11:10 Dose: 100 mls/hr Levothyroxine Sodium (Synthroid -) 100 mcg PO DAILY@0700 [facility] Last Admin: 04/11/17 06:10 Dose: 100 mcg Morphine Sulfate (Morphine Injection -) 1 mg IVPUSH Q6H PRN PRN Reason: PAIN Last Admin: 04/11/17 11:04 Dose: 1 mg Mupirocin (Bactroban 2% Cream -) 1 applic TP BID [facility] Last Admin: 04/10/17 22:19 Dose: 1 applic Ondansetron HCl (Zofran Injection) 4 mg IVPB Q6H PRN PRN Reason: NAUSEA Last Admin: 04/11/17 05:37 Dose: 4 mg Oxycodone HCl (Roxicodone -) 5 mg PO Q4H PRN PRN Reason: PAIN Last Admin: 04/11/17 05:36 Dose: 5 mg Polyethylene Glycol (Miralax (For Daily Use) -) 17 gm PO DAILY [facility] Last Admin: 04/11/17 11:11 Dose: 17 gm Senna (Senna -) 1 tab PO HS [facility] Last Admin: 04/10/17 22:18 Dose: 1 tab - Objective Vital Signs: Vital Signs Temperature 98.8 F 04/11/17 05:45 Pulse Rate 76 04/11/17 05:45 Respiratory Rate 18 04/11/17 05:45 Blood Pressure 122/56 04/11/17 05:45 O2 Sat by Pulse Oximetry (%) 94 L 04/10/17 21:00 Constitutional: Yes: Calm Eyes: Yes: WNL HENT: Yes: WNL Neck: Yes: WNL Cardiovascular: Yes: Regular Rate and Rhythm Respiratory: Yes: Regular Gastrointestinal: Yes: Soft ...Rectal Exam: Yes: Deferred Genitourinary: No: Anuria Breast(s): Yes: WNL Musculoskeletal: Yes: Other Extremities: Yes: Cool Edema: No Peripheral Pulses WNL: No Peripheral Pulses: Left Doralis Pedis: 1+, Right Dorsalis Pedis: 1+ Integumentary: Yes: Other (bilateral LE wounds) Neurological: Yes: WNL Psychiatric: Yes: WNL Labs: CBC, BMP 04/11/17 07:00 04/11/17 07:00 INR, PTT INR 1.41 (0.82-1.09) H 04/09/17 14:23 Current Medications Aspirin (Asa -) 81 mg PO DAILY [facility] Last Admin: 04/11/17 11:11 Dose: 81 mg Collagenase (Santyl -) 1 applic TP DAILY [facility] Last Admin: 04/11/17 15:20 Dose: 1 applic Docusate Sodium (Colace -) 100 mg PO BID [facility] Last Admin: 04/11/17 11:11 Dose: 100 mg Heparin Sodium (Porcine) (Heparin -) 5,000 unit SQ Q8H-IV [facility] Last Admin: 04/11/17 18:16 Dose: 5,000 unit Piperacillin Sod/Tazobactam (Sod 3.375 gm/ Dextrose) 50 mls @ 100 mls/hr IVPB Q8H-IV [facility] Last Admin: 04/11/17 17:49 Dose: 100 mls/hr Sodium Chloride (1/2 Normal Saline) 1,000 mls @ 50 mls/hr IV [facility]IR [facility] Stop: 04/12/17 16:02 Last Admin: 04/11/17 17:49 Dose: 50 mls/hr Levothyroxine Sodium (Synthroid -) 100 mcg PO DAILY@0700 [facility] Last Admin: 04/11/17 06:10 Dose: 100 mcg Morphine Sulfate (Morphine Injection -) 1 mg IVPUSH Q6H PRN PRN Reason: PAIN Last Admin: 04/11/17 17:46 Dose: 1 mg Mupirocin (Bactroban 2% Cream -) 1 applic TP BID [facility] Last Admin: 04/11/17 15:20 Dose: 1 applic Ondansetron HCl (Zofran Injection) 4 mg IVPB Q6H PRN PRN Reason: NAUSEA Last Admin: 04/11/17 05:37 Dose: 4 mg Oxycodone HCl (Roxicodone -) 5 mg PO Q4H PRN PRN Reason: PAIN Last Admin: 04/11/17 05:36 Dose: 5 mg Polyethylene Glycol (Miralax (For Daily Use) -) 17 gm PO DAILY [facility] Last Admin: 04/11/17 11:11 Dose: 17 gm Senna (Senna -) 1 tab PO HS [facility] Last Admin: 04/10/17 22:18 Dose: 1 tab Abnormal Lab Results 04/11/17 04/11/17 04/11/17 07:00 07:00 07:00 WBC 11.9 H RBC 2.80 L Hgb 7.8 L Hct 24.0 L ESR Chloride 108 H Anion Gap 6 L BUN 27 H Creatinine 1.8 H Calcium 7.7 L C-Reactive Protein 10.0 H Total Protein 5.4 L Albumin 2.1 L 04/11/17 07:00 WBC RBC Hgb Hct ESR 80 H Chloride Anion Gap BUN Creatinine Calcium C-Reactive Protein Total Protein Albumin - ....Imaging Other: Image Reviewed (telemetry: NSR; no arrhythmias) Problem List - Problems (1) Acute kidney injury Assessment/Plan: increasing Cr; hematuria and proeinuria. Hydration; f/u with branch examiner. Code(s): N17.9 - ACUTE KIDNEY FAILURE, UNSPECIFIED (2) Cellulitis Code(s): L03.90 - CELLULITIS, UNSPECIFIED Qualifiers: Site of cellulitis: extremity Site of cellulitis of extremity: lower extremity Laterality: unspecified laterality Qualified Code(s): L03.119 - Cellulitis of unspecified part of limb (3) Elevated troponin Assessment/Plan: 0.11-->0.08; normal CK. ECHO: normal LVEF; moderate bilateral atrial enlargement. Multiple cardiac risks (age; diasatoic CHF; HTN; ?lipids; sedentary). Denies prior cardiac workup. Stress MIBI when stable, if not done recently. Code(s): R74.8 - ABNORMAL LEVELS OF OTHER SERUM ENZYMES (4) Hypothyroid Assessment/Plan: TSH 19.1; f/u T3 and T4. F/u lipid levels. Code(s): E03.9 - HYPOTHYROIDISM, UNSPECIFIED (5) Wound infection Assessment/Plan: on antibiotics. f/u with vascular surgeon. Code(s): T14.8 - OTHER INJURY OF UNSPECIFIED BODY REGION L08.9 - LOCAL INFECTION OF THE SKIN AND SUBCUTANEOUS TISSUE, UNSP
--- NOTE | 2017-04-11 15:09 | PN ---
Progress Note, Physician History of Present Illness: C/O bilateral leg soreness No fever/ chills Tolerating antibiotics Afebrile WBC 11.9 Cr 1.8 BC (-) Wound c/s mixed Vanco T 6.4 - Current Medication List Current Medications: Active Medications Aspirin (Asa -) 81 mg PO DAILY [facility] Last Admin: 04/11/17 11:11 Dose: 81 mg Collagenase (Santyl -) 1 applic TP DAILY [facility] Last Admin: 04/10/17 12:19 Dose: Not Given Docusate Sodium (Colace -) 100 mg PO BID [facility] Last Admin: 04/11/17 11:11 Dose: 100 mg Heparin Sodium (Porcine) (Heparin -) 5,000 unit SQ Q8H-IV [facility] Last Admin: 04/11/17 11:11 Dose: 5,000 unit Sodium Chloride (Normal Saline -) 1,000 mls @ 100 mls/hr IV [facility] Last Admin: 04/10/17 09:05 Dose: 100 mls/hr Piperacillin Sod/Tazobactam (Sod 3.375 gm/ Dextrose) 50 mls @ 100 mls/hr IVPB Q8H-IV [facility] Last Admin: 04/11/17 11:10 Dose: 100 mls/hr Levothyroxine Sodium (Synthroid -) 100 mcg PO DAILY@0700 [facility] Last Admin: 04/11/17 06:10 Dose: 100 mcg Morphine Sulfate (Morphine Injection -) 1 mg IVPUSH Q6H PRN PRN Reason: PAIN Last Admin: 04/11/17 11:04 Dose: 1 mg Mupirocin (Bactroban 2% Cream -) 1 applic TP BID [facility] Last Admin: 04/10/17 22:19 Dose: 1 applic Ondansetron HCl (Zofran Injection) 4 mg IVPB Q6H PRN PRN Reason: NAUSEA Last Admin: 04/11/17 05:37 Dose: 4 mg Oxycodone HCl (Roxicodone -) 5 mg PO Q4H PRN PRN Reason: PAIN Last Admin: 04/11/17 05:36 Dose: 5 mg Polyethylene Glycol (Miralax (For Daily Use) -) 17 gm PO DAILY [facility] Last Admin: 04/11/17 11:11 Dose: 17 gm Senna (Senna -) 1 tab PO HS [facility] Last Admin: 04/10/17 22:18 Dose: 1 tab - Objective Vital Signs: Vital Signs Temperature 99.2 F 04/11/17 10:00 Pulse Rate 89 04/11/17 10:00 Respiratory Rate 18 04/11/17 10:00 Blood Pressure 106/70 04/11/17 10:00 O2 Sat by Pulse Oximetry (%) 98 04/11/17 10:00 Constitutional: Yes: No Distress Eyes: Yes: Conjunctiva Clear Cardiovascular: Yes: Regular Rate and Rhythm, S1, S2 Respiratory: Yes: CTA Bilaterally Gastrointestinal: Yes: Normal Bowel Sounds, Soft Extremities: Yes: Other (LE erythema) Edema: Yes Labs: CBC, BMP 04/11/17 07:00 04/11/17 07:00 INR, PTT INR 1.41 (0.82-1.09) H 04/09/17 14:23 Assessment/Plan LE cellulitis MYRTLE Hx MRSA Continue zosyn Redose Vancomycin
[2017-04-11] MEDS ORDERED: VANCOMYCIN 1 GRAM (PRE-DOCKED) 250 ML IVPB ONE (15:10)
[2017-04-11] MEDS: MUPIROCIN CA 2% TOPICAL CREAM 15 GM TUBE TP SCH ×2 (15:20→21:52)
[2017-04-11] MEDS: COLLAGENASE CLOSTRIDIUM HIST. 30 GRAMS TUBE TP SCH (15:20)
--- NOTE | 2017-04-11 16:01 | CONSULT ---
Consult Consult Specialty:: Nephrology Reason for Consultation:: MYRTLE - History of Present Illness Chief Complaint: sent in for cellulitis History of Present Illness: Pt is a 77 year old female with pmhx of HTN, hypothyroidism and polymyalgia who was sent in for a non healing leg ulcer. She was found to have elevated creatinine and I was called to evaluate her. She denies history of CKD. She denies dysuria or hematuria. She is awake and alert. She takes nsaids daily. She has been on them for pain. She take over the counter advil. She takes 2 pills every 4 to 6 hours. She denies family history of CKD. She says she has a counsin with Lupus. - History Source History Provided By: Patient, Medical Record - Past Medical History Cardio/Vascular: Yes: HTN Renal/: Yes: Renal Inusuff ...: No Endocrine: Yes: Hypothyroidism Dermatology: Yes: Other (open LE wounds) - Past Surgical History Additional Surgical History: excision debridement of right ankle ulcer 2013 - Alcohol/Substance Use Hx Alcohol Use: No - Smoking History Smoking history: Never smoked Have you smoked in the past 12 months: No If you are a former smoker, when did you quit?: 30 years ago Home Medications - Allergies Allergies/Adverse Reactions: Allergies Allergy/AdvReac Type Severity Reaction Status Date / Time Sulfa (Sulfonamide Allergy Severe Verified 04/09/17 12:43 Antibiotics) - Home Medications Home Medications: Ambulatory Orders Levothyroxine [Synthroid -] 100 mcg PO DAILY 03/23/14 Family Disease History - Family Disease History Family History: Denies Review of Systems - Review of Systems Constitutional: reports: Malaise Eyes: reports: No Symptoms HENT: reports: No Symptoms Neck: reports: No Symptoms Cardiovascular: reports: No Symptoms Respiratory: reports: No Symptoms Gastrointestinal: reports: No Symptoms Genitourinary: reports: No Symptoms Musculoskeletal: reports: Extremity Pain Neurological: reports: No Symptoms Endocrine: reports: No Symptoms Hematology/Lymphatic: reports: No Symptoms Physical Exam Vital Signs: Vital Signs Temperature 98.9 F 04/11/17 15:45 Pulse Rate 82 04/11/17 15:45 Respiratory Rate 18 04/11/17 15:45 Blood Pressure 132/71 04/11/17 15:45 O2 Sat by Pulse Oximetry (%) 98 04/11/17 10:00 Constitutional: Yes: Calm Eyes: Yes: Conjunctiva Clear HENT: Yes: Atraumatic Neck: Yes: Supple Cardiovascular: Yes: S1, S2 Respiratory: Yes: CTA Bilaterally Gastrointestinal: Yes: Normal Bowel Sounds, Soft Renal/: Yes: WNL Musculoskeletal: Yes: WNL Edema: Yes Edema: LLE: 1+, RLE: 1+ Wound/Incision: Yes: Dressing Dry and Intact Neurological: Yes: Oriented Psychiatric: Yes: Oriented Labs: CBC, BMP 04/11/17 07:00 04/11/17 07:00 Laboratory Tests 04/20/14 04/22/14 04/09/17 20:48 07:30 13:20 WBC Hgb Sodium Potassium BUN Creatinine 0.7 0.9 D Urine Protein 2+ H Urine Blood 3+ H Urine RBC 83 Urine WBC 41 Random Vancomycin 04/09/17 04/09/17 04/10/17 14:23 14:23 06:10 WBC Hgb 9.7 L D 8.3 L D Sodium Potassium BUN Creatinine 1.5 H D Urine Protein Urine Blood Urine RBC Urine WBC Random Vancomycin 04/10/17 04/11/17 04/11/17 06:10 07:00 07:00 WBC 11.9 H Hgb 7.8 L Sodium Potassium BUN Creatinine 1.6 H Urine Protein Urine Blood Urine RBC Urine WBC Random Vancomycin 6.497 04/11/17 07:00 WBC Hgb Sodium 140 Potassium 4.2 BUN 27 H Creatinine 1.8 H Urine Protein Urine Blood Urine RBC Urine WBC Random Vancomycin Imaging - Results Chest X-ray: Report Reviewed Problem List - Problems (1) Acute kidney injury Code(s): N17.9 - ACUTE KIDNEY FAILURE, UNSPECIFIED (2) Cellulitis Code(s): L03.90 - CELLULITIS, UNSPECIFIED Qualifiers: Site of cellulitis: extremity Site of cellulitis of extremity: lower extremity Laterality: unspecified laterality Qualified Code(s): L03.119 - Cellulitis of unspecified part of limb (3) Hypothyroid Code(s): E03.9 - HYPOTHYROIDISM, UNSPECIFIED (4) Venous stasis of both lower extremities Code(s): I87.8 - OTHER SPECIFIED DISORDERS OF VEINS Assessment/Plan Current Medications Generic Name Dose Route Start Last Admin Trade Name Freq PRN Reason Stop Dose Admin Aspirin 81 mg 04/10/17 10:00 04/11/17 11:11 Asa - PO 81 mg DAILY [facility] Administration Collagenase 1 applic 04/10/17 10:00 04/10/17 12:19 Santyl - TP Not Given DAILY MILES Docusate Sodium 100 mg 04/10/17 10:00 04/11/17 11:11 Colace - PO 100 mg BID [facility] Administration Heparin Sodium (Porcine) 5,000 unit 04/09/17 18:00 04/11/17 11:11 Heparin - SQ 5,000 unit Q8H-IV [facility] Administration Sodium Chloride 1,000 mls @ 100 mls/hr 04/10/17 08:45 04/10/17 09:05 Normal Saline - IV 100 mls/hr ASDIR MIL[facility] Administration Piperacillin Sod/Tazobactam 50 mls @ 100 mls/hr 04/10/17 10:35 04/11/17 11:10 Sod 3.375 gm/ Dextrose IVPB 100 mls/hr Q8H-IV [facility] Administration Vancomycin HCl 250 mls @ 166.667 mls/hr 04/11/17 15:10 Vancomycin (Pre-Docked) IVPB 04/11/17 16:39 ONCE ONE Levothyroxine Sodium 100 mcg 04/10/17 07:00 04/11/17 06:10 Synthroid - PO 100 mcg DAILY@0700 [facility] Administration Morphine Sulfate 1 mg 04/11/17 10:49 04/11/17 11:04 Morphine Injection - IVPUSH 1 mg Q6H PRN Administration PAIN Mupirocin 1 applic 04/10/17 22:00 04/10/17 22:19 Bactroban 2% Cream - TP 1 applic BID MIL[facility] Administration Ondansetron HCl 4 mg 04/10/17 08:46 04/11/17 05:37 Zofran Injection IVPB 4 mg Q6H PRN Administration NAUSEA Oxycodone HCl 5 mg 04/10/17 08:46 04/11/17 05:36 Roxicodone - PO 5 mg Q4H PRN Administration PAIN Polyethylene Glycol 17 gm 04/10/17 10:00 04/11/17 11:11 Miralax (For Daily Use) - PO 17 gm DAILY [facility] Administration Senna 1 tab 04/10/17 22:00 04/10/17 22:18 Senna - PO 1 tab HS MILES Administration Impression 1. MYRTLE 2. lower extremity ulcer 3. hypothyroid 4. HTN 5. polymyalgia Plan - avoid nsaids - will need renal workup - check renal ultrasound - change fluids to 1/2ns and decrease rate - check urine eos - check anti dsdna and jarod - will follow - will need outpt follow - she does have blood and protein in the urine Dr Hamilton
[2017-04-11] MEDS ORDERED: SODIUM CHLORIDE 0.45% 1,000 ML IV SCH (16:15)
[2017-04-11] MEDS: SODIUM CHLORIDE 1,000 ML IV SCH (19:00)
[2017-04-11] MEDS: SENNOSIDES 8.6MG TABLET (FP) PO SCH (21:51)
[2017-04-11 22:17] LABS: CHOLESTEROL 136 mg/dL (50-200)
[2017-04-12] MEDS ORDERED: PIPERACILLIN/TAZOBACTAM 3.375 GM VIAL IVPB ONE ×3 (01:50→18:08)
[2017-04-12] MEDS ORDERED: DEXTROSE 5%-WATER - 50 ML IVPB ONE ×3 (01:51→18:08)
[2017-04-12] MEDS: HEPARIN NA (PORCINE) 5,000 UNITS/ML 1ML VIAL SQ SCH ×3 (02:29→18:13)
[2017-04-12] MEDS: PIPERACILLIN/TAZOB 3.375 GM 3.375 GM in DEXTROSE 5%-WATER - 50 ML IVPB SCH ×3 (02:30→18:13)
[2017-04-12] MEDS: LEVOTHYROXINE NA 100 MCG TABLET (FP) PO SCH (06:32)
[2017-04-12 06:38] LABS: MCH 28.9 pg (25.7-33.7); MEAN PLT VOLUME 7.3 fl (7.5-11.1); PLATELET COUNT 330 K/MM3 (134-434); RDW 14.9 % (11.6-15.6); WHITE BLOOD COUNT 10.6 K/mm3 (4.0-10.0)
[2017-04-12 06:56] LABS: ANION GAP 9 (8-16); CALCIUM 7.8 mg/dL (8.5-10.1); CO2 25 mmol/L (21-32); CREATININE 1.9 mg/dL (0.55-1.02); GLUCOSE,RANDOM 94 mg/dL (74-106)
[2017-04-12] MEDS ORDERED: PT OWN MED DRAWER 7, Y5N ONE (09:34)
[2017-04-12] MEDS: ASPIRIN 81 MG CHEWABLE TABLETS PO SCH (09:41)
[2017-04-12] MEDS: DOCUSATE SODIUM 100 MG CAPSULE (FP) PO SCH ×2 (09:41→22:45)
[2017-04-12] MEDS: POLYETHYLENE GLYCOL 3350 119 GM BTL PO SCH (09:42)
[2017-04-12] MEDS ORDERED: SENNOSIDES 8.6MG TABLET (FP) PO ONE (09:55)
[2017-04-12] MEDS ORDERED: LACTULOSE 20 GM/30 ML UDC (FOR ORAL USE ONLY) PO ONE (09:55)
[2017-04-12] MEDS: MUPIROCIN CA 2% TOPICAL CREAM 15 GM TUBE TP SCH ×2 (11:00→22:45)
[2017-04-12] MEDS: COLLAGENASE CLOSTRIDIUM HIST. 30 GRAMS TUBE TP SCH (11:00)
--- NOTE | 2017-04-12 13:45 | PN ---
Physical Exam: SUBJECTIVE: Patient seen and examined. 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 A times she feels a hitch in her breathing. She is hesitant to receive blood. 24 events: - Hypoxic 86% RA, sob - CXR: worsening r lobe pna - Hemoptysis this AM OBJECTIVE: Vital Signs Period Temp Pulse Resp BP Sys/Horn Pulse Ox Last 24 Hr 98.7 F-99.0 F 70-88 18-19 121-132/51-71 94-97 PE Neuro: alert, awake, cn 2-12intact Pulm: bi basilar crackles, +hemoptysis ?clot, mild tachypnea CV: s1 s2 rrr no mrg Abd: s nt nd +bs Ext: RLE medial open wound clean, pink, mild slough, LLE erythema to ankle- less , + tenderness to ankle, + DP pulse, warm- less , L foot closed lateral wound Laboratory Results - last 24 hr 04/12/17 04/12/17 04/12/17 05:30 05:30 08:45 WBC 10.6 H RBC 2.47 L Hgb 7.2 L Hct 21.0 L MCV 85.0 MCH 28.9 MCHC 34.0 RDW 14.9 Plt Count 330 MPV 7.3 L Sodium 142 Potassium 4.0 Chloride 108 H Carbon Dioxide 25 Anion Gap 9 BUN 29 H Creatinine 1.9 H Random Glucose 94 Calcium 7.8 L Triglycerides Cholesterol Total LDL Cholesterol HDL Cholesterol Free T3 U Random Total Protein Ur Random Sodium Ur Random Potassium Ur Random Chloride Ur Random Urea Nitrogn Urine Creatinine Protein/Creatinin Ratio Random Vancomycin Blood Type O POSITIVE Antibody Screen Positive H Antibody Identification TNP Crossmatch See Detail 04/12/17 04/12/17 04/12/17 08:45 09:00 09:00 WBC RBC Hgb Hct MCV MCH MCHC RDW Plt Count MPV Sodium Potassium Chloride Carbon Dioxide Anion Gap BUN Creatinine Random Glucose Calcium Triglycerides Cholesterol Total LDL Cholesterol HDL Cholesterol Free T3 U Random Total Protein 104 H Ur Random Sodium Cancelled 52 Ur Random Potassium 42.5 Ur Random Chloride 63 Ur Random Urea Nitrogn 571 Urine Creatinine 107.0 Protein/Creatinin Ratio 0.97 Random Vancomycin Blood Type O POSITIVE Antibody Screen Antibody Identification Crossmatch See Detail Active Medications Generic Name Dose Route Start Last Admin Trade Name Freq PRN Reason Stop Dose Admin Aspirin 81 mg 09/20/17 10:00 04/12/17 09:41 Asa - PO 81 mg DAILY MILES Administration Collagenase 1 applic 04/10/17 10:00 04/11/17 15:20 Santyl - TP 1 applic DAILY [facility] Administration Docusate Sodium 100 mg 04/10/17 10:00 04/12/17 09:41 Colace - PO 100 mg BID MIL[facility] Administration Heparin Sodium (Porcine) 5,000 unit 04/09/17 18:00 04/12/17 09:41 Heparin - SQ 5,000 unit Q8H-IV [facility] Administration Piperacillin Sod/Tazobactam 50 mls @ 100 mls/hr 04/10/17 10:35 04/12/17 09:42 Sod 3.375 gm/ Dextrose IVPB 100 mls/hr Q8H-IV [facility] Administration Levothyroxine Sodium 100 mcg 04/10/17 07:00 04/12/17 06:32 Synthroid - PO 100 mcg DAILY@0700 [facility] Administration Morphine Sulfate 1 mg 04/11/17 10:49 04/11/17 17:46 Morphine Injection - IVPUSH 1 mg Q6H PRN Administration PAIN Mupirocin 1 applic 04/10/17 22:00 04/11/17 21:52 Bactroban 2% Cream - TP 1 applic BID MIL[facility] Administration Ondansetron HCl 4 mg 04/10/17 08:46 04/11/17 05:37 Zofran Injection IVPB 4 mg Q6H PRN Administration NAUSEA Oxycodone HCl 5 mg 04/10/17 08:46 04/11/17 05:36 Roxicodone - PO 5 mg Q4H PRN Administration PAIN Polyethylene Glycol 17 gm 04/10/17 10:00 04/12/17 09:42 Miralax (For Daily Use) - PO 17 gm DAILY MIL[facility] Administration Senna 1 tab 04/10/17 22:00 04/11/17 21:51 Senna - PO 1 tab HS MILES Administration Imaging: - Outpt doppler Us: negative for dvt - ECHO normal LVSF, size, RVSP 30-40, mild MR, TR Assessment: 77 year old female with PMHx of non healing chronic RLE venous ulcer , borderline hypertension, polymyalgia, hypothyroidism, sent to ED by Dr. Silvestre for b/l lower extremity cellulitis. Plan: 1. Hemoptysis - CT chest ordered - Pulm consult 2. Acute blood loss anemia - Obtain iron studies - Transfuse 1uprbc, however pt hesitant 3. B/l lower extremity cellulitis with chronic lower extremity ulcers d/t venous stasis - Hx of MRSA, VRE, pseudomonas - Zosyn (day 3, renal dosed) 4. MYRTLE with proteinuria - Urine studies pending - Renal/bladder US pending - Fluids stopped for hypoxia - Nephrology seeing 5. Elevated troponin - r/o RI serial trops down trending - ASA daily - Stress can happen as outpt 6. Hypothyroidism - TSH elevated - Increase synthroid 112.5mcg 7. Prophylaxis - OOB ambulating - Heparin 5000sq q8 Visit type - Emergency Visit Emergency Visit: Yes ED Registration Date: 04/09/17 Care time: The patient presented to the Emergency Department on the above date and was hospitalized for further evaluation of their emergent condition. - New Patient This patient is new to me today: No - Critical Care Critical Care patient: No
[2017-04-12 14:15] LABS: URINE CREATININE 89.5 mg/dL (20-320)
[2017-04-12 14:26] LABS: FERRITIN 294.937 ng/ml (6.9-282.5)
[2017-04-12] MEDS ORDERED: LEVOTHYROXINE NA 100 MCG TABLET (FP) PO SCH (14:29)
--- NOTE | 2017-04-12 15:45 | PN ---
Progress Note, Physician Chief Complaint: Pt sitting in chair; becomes short of breath just trying to hold a conversation. History of Present Illness: 87-year-old black female sent in by Dr. Silvestre for evaluation of nonhealing chronic lower extremity wounds now suggestive of cellulitis. Patient states was seen earlier this week and then again today for redness and swelling of the thumb, bilateral lower extremity wounds and swelling, now with a draining wound to the side of left ankle. Patient denies fever, chills but does state pain and redness to the area. Patient states had an ultrasound a few days ago which was negative for DVT. Patient does have history of MRSA. Patient also states history of chronic venous stasis. Pt has also been increasingly short of breath over the past 2 months; she now becomes winded with minimal exertion. Timing/Duration: getting worse Severity: moderate Associated Symptoms: reports: denies symptoms - Current Medication List Current Medications: Active Medications Aspirin (Asa -) 81 mg PO DAILY [facility] Last Admin: 04/12/17 09:41 Dose: 81 mg Collagenase (Santyl -) 1 applic TP DAILY [facility] Last Admin: 04/11/17 15:20 Dose: 1 applic Docusate Sodium (Colace -) 100 mg PO BID [facility] Last Admin: 04/12/17 09:41 Dose: 100 mg Heparin Sodium (Porcine) (Heparin -) 5,000 unit SQ Q8H-IV [facility] Last Admin: 04/12/17 09:41 Dose: 5,000 unit Piperacillin Sod/Tazobactam (Sod 3.375 gm/ Dextrose) 50 mls @ 100 mls/hr IVPB Q8H-IV [facility] Last Admin: 04/12/17 09:42 Dose: 100 mls/hr Levothyroxine Sodium 100 mcg/ (Levothyroxine Sodium 12.5 mcg) 112.5 mcg PO DAILY@0700 [facility] Morphine Sulfate (Morphine Injection -) 1 mg IVPUSH Q6H PRN PRN Reason: PAIN Last Admin: 04/11/17 17:46 Dose: 1 mg Mupirocin (Bactroban 2% Cream -) 1 applic TP BID [facility] Last Admin: 04/11/17 21:52 Dose: 1 applic Ondansetron HCl (Zofran Injection) 4 mg IVPB Q6H PRN PRN Reason: NAUSEA Last Admin: 04/11/17 05:37 Dose: 4 mg Oxycodone HCl (Roxicodone -) 5 mg PO Q4H PRN PRN Reason: PAIN Last Admin: 04/11/17 05:36 Dose: 5 mg Polyethylene Glycol (Miralax (For Daily Use) -) 17 gm PO DAILY [facility] Last Admin: 04/12/17 09:42 Dose: 17 gm Senna (Senna -) 1 tab PO HS [facility] Last Admin: 04/11/17 21:51 Dose: 1 tab - Objective Vital Signs: Vital Signs Temperature 98.7 F 04/12/17 10:00 Pulse Rate 74 04/12/17 10:00 Respiratory Rate 19 04/12/17 10:00 Blood Pressure 121/69 04/12/17 10:00 O2 Sat by Pulse Oximetry (%) 97 04/12/17 10:00 Constitutional: Yes: Anxious, Mild Distress Eyes: Yes: WNL HENT: Yes: WNL Neck: Yes: WNL Cardiovascular: Yes: Regular Rate and Rhythm Respiratory: Yes: Diminished Gastrointestinal: Yes: Soft ...Rectal Exam: Yes: Deferred Genitourinary: No: Anuria Musculoskeletal: Yes: Muscle Pain, Muscle Weakness Extremities: Yes: Cool Edema: Yes Edema: LLE: 1+, RLE: Trace Peripheral Pulses WNL: No Peripheral Pulses: Left Doralis Pedis: 1+, Right Dorsalis Pedis: 1+ Neurological: Yes: Alert, Oriented, Weakness Psychiatric: Yes: Alert, Oriented Labs: CBC, BMP 04/12/17 05:30 04/12/17 05:30 INR, PTT INR 1.41 (0.82-1.09) H 04/09/17 14:23 Abnormal Lab Results 04/11/17 04/11/17 04/12/17 06:00 11:03 05:30 WBC 10.6 H RBC 2.47 L Hgb 7.2 L Hct 21.0 L MPV 7.3 L ABG pO2 at Pt Temp ABG O2 Sat (Measured) ABG O2 Content Chloride BUN Creatinine Calcium Ferritin HDL Cholesterol 31 L Free T3 1.7 L U Random Total Protein Antibody Screen Crossmatch 04/12/17 04/12/17 04/12/17 05:30 08:45 08:45 WBC RBC Hgb Hct MPV ABG pO2 at Pt Temp ABG O2 Sat (Measured) ABG O2 Content Chloride 108 H BUN 29 H Creatinine 1.9 H Calcium 7.8 L Ferritin 294.937 H HDL Cholesterol Free T3 U Random Total Protein Antibody Screen Positive H Crossmatch See Detail See Detail 04/12/17 04/12/17 09:00 16:50 WBC RBC Hgb Hct MPV ABG pO2 at Pt Temp 50.8 L ABG O2 Sat (Measured) 85.9 L ABG O2 Content 10.4 L Chloride BUN Creatinine Calcium Ferritin HDL Cholesterol Free T3 U Random Total Protein 104 H Antibody Screen Crossmatch - ....Imaging Chest X-ray: Image Reviewed (poor inspiration; atelectasis R/o pneumonia R/o malignancy) Problem List - Problems (1) Sepsis Assessment/Plan: leukocytosis; afebrile. 10 lb weight loss in past 6 months. Seldom has night sweats. Hematuria; hemoptysis; proteinuria. Increasingly dyspneic, now with only minimal exertion; CxR with atelectasis and/ or increasingly diffuse pneumonia; r/o malignancy. Hx polymyalgia rheumatica. F/u Chest CT. On multiple antibiotics per ID. Code(s): A41.9 - SEPSIS, UNSPECIFIED ORGANISM (2) Acute kidney injury Assessment/Plan: increasing Cr; hematuria and proteinuria. 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 Code(s): N17.9 - ACUTE KIDNEY FAILURE, UNSPECIFIED (3) Cellulitis Code(s): L03.90 - CELLULITIS, UNSPECIFIED Qualifiers: Site of cellulitis: extremity Site of cellulitis of extremity: lower extremity Laterality: unspecified laterality Qualified Code(s): L03.119 - Cellulitis of unspecified part of limb (4) Elevated troponin Assessment/Plan: 0.11-->0.08; normal CK. No chest pain; no acute EKG changes. ECHO: normal LVEF; moderate bilateral atrial enlargement. Sepsis, CHF, muscle breakdown may contribute to rise in TNI. Multiple cardiac risks (age; diasatoic CHF; HTN; ?lipids; sedentary). Denies prior cardiac workup. Stress MIBI when stable, if not done recently. Total cholesterol 136 mg/dL; LDL cholesterol 79 mg/dL. Code(s): R74.8 - ABNORMAL LEVELS OF OTHER SERUM ENZYMES (5) Hypothyroid Assessment/Plan: TSH 19.1; free T3 mildly decreased.. Total cholesterol < 150. Code(s): E03.9 - HYPOTHYROIDISM, UNSPECIFIED (6) Wound infection Assessment/Plan: on antibiotics. f/u with vascular surgeon. Code(s): T14.8 - OTHER INJURY OF UNSPECIFIED BODY REGION L08.9 - LOCAL INFECTION OF THE SKIN AND SUBCUTANEOUS TISSUE, UNSP
--- NOTE | 2017-04-12 16:00 | PN ---
Progress Note (short form) - Note Progress Note: PULMONARY CONSULTATION DICTATED 04/12/17 IMP ACUTE HYPOXEMIC RESPIRATORY FAILURE EXTENSIVE BILATERAL INFILTRATES ?INFECTIOUS,?VASCULITIS (HEMOPTYSIS,RENAL INSUFFIENCY) PULMONARY RENAL SYNDROME,AUTOIMMUNE HEMOPTYSIS SECONDARY TO ABOVE HTN ANEMIA CHRONIC VENOUS STASIS HYPOTHYROIDISM PLAN IV ANTIBIOTICS TRIAL OF IV STEROIDS O2 CULTURES QUANTIFY HEMOPTYSIS SEROLOGY C-ANCA,KEELEY CONSIDER TRANSFUSION F/U CHEST X-RAYS ABG FLEX BRONCH IF NO IMPROVEMENT DR CORBIN Problem List - Problems (1) Acute kidney injury Code(s): N17.9 - ACUTE KIDNEY FAILURE, UNSPECIFIED (2) Cellulitis Code(s): L03.90 - CELLULITIS, UNSPECIFIED Qualifiers: Site of cellulitis: extremity Site of cellulitis of extremity: lower extremity Laterality: unspecified laterality Qualified Code(s): L03.119 - Cellulitis of unspecified part of limb (3) Venous stasis of both lower extremities Code(s): I87.8 - OTHER SPECIFIED DISORDERS OF VEINS (4) Hemoptysis Code(s): R04.2 - HEMOPTYSIS (5) Acute hypoxemic respiratory failure Code(s): J96.01 - ACUTE RESPIRATORY FAILURE WITH HYPOXIA (6) Bilateral pulmonary infiltrates on chest x-ray Code(s): R91.8 - OTHER NONSPECIFIC ABNORMAL FINDING OF LUNG FIELD (7) Vasculitis Code(s): I77.6 - ARTERITIS, UNSPECIFIED
[2017-04-12] MEDS ORDERED: VANCOMYCIN 1 GRAM (PRE-DOCKED) 250 ML IVPB ONE (16:06)
--- NOTE | 2017-04-12 16:12 | PN ---
Progress Note, Physician History of Present Illness: C/O bilateral leg soreness No fever/ chills + episode of hemoptysis OOB in chair. Appears mildly tachypneic at rest Afebrile WBC 10.6 BC (-) Wound c/s mixed - Current Medication List Current Medications: Active Medications Aspirin (Asa -) 81 mg PO DAILY [facility] Last Admin: 04/12/17 09:41 Dose: 81 mg Collagenase (Santyl -) 1 applic TP DAILY [facility] Last Admin: 04/11/17 15:20 Dose: 1 applic Docusate Sodium (Colace -) 100 mg PO BID [facility] Last Admin: 04/12/17 09:41 Dose: 100 mg Heparin Sodium (Porcine) (Heparin -) 5,000 unit SQ Q8H-IV [facility] Last Admin: 04/12/17 09:41 Dose: 5,000 unit Piperacillin Sod/Tazobactam (Sod 3.375 gm/ Dextrose) 50 mls @ 100 mls/hr IVPB Q8H-IV [facility] Last Admin: 04/12/17 09:42 Dose: 100 mls/hr Vancomycin HCl 1,000 mg/ (Dextrose) 250 mls @ 200 mls/hr IVPB ONCE ONE Stop: 04/12/17 17:20 Azithromycin 500 mg/ Dextrose 250 mls @ 250 mls/hr IVPB DAILY [facility] Levothyroxine Sodium 100 mcg/ (Levothyroxine Sodium 12.5 mcg) 112.5 mcg PO DAILY@0700 [facility] Morphine Sulfate (Morphine Injection -) 1 mg IVPUSH Q6H PRN PRN Reason: PAIN Last Admin: 04/11/17 17:46 Dose: 1 mg Mupirocin (Bactroban 2% Cream -) 1 applic TP BID [facility] Last Admin: 04/11/17 21:52 Dose: 1 applic Ondansetron HCl (Zofran Injection) 4 mg IVPB Q6H PRN PRN Reason: NAUSEA Last Admin: 04/11/17 05:37 Dose: 4 mg Oxycodone HCl (Roxicodone -) 5 mg PO Q4H PRN PRN Reason: PAIN Last Admin: 04/11/17 05:36 Dose: 5 mg Polyethylene Glycol (Miralax (For Daily Use) -) 17 gm PO DAILY [facility] Last Admin: 04/12/17 09:42 Dose: 17 gm Senna (Senna -) 1 tab PO HS [facility] Last Admin: 04/11/17 21:51 Dose: 1 tab - Objective Vital Signs: Vital Signs Temperature 98.7 F 04/12/17 10:00 Pulse Rate 74 04/12/17 10:00 Respiratory Rate 04/12/17 10:00 Blood Pressure 121/69 04/12/17 10:00 O2 Sat by Pulse Oximetry (%) 97 04/12/17 10:00 Constitutional: Yes: No Distress Eyes: Yes: Conjunctiva Clear Cardiovascular: Yes: Regular Rate and Rhythm, S1, S2 Respiratory: Yes: CTA Bilaterally Gastrointestinal: Yes: Normal Bowel Sounds, Soft. No: Tenderness Edema: Yes Labs: CBC, BMP 04/12/17 05:30 04/12/17 05:30 INR, PTT INR 1.41 (0.82-1.09) H 04/09/17 14:23 Assessment/Plan LE cellulitis v. vasculitis Bilateral pulmonary consolidations MYRTLE Hx MRSA Continue zosyn.Redose Vancomycin Discussed with pulmonary Obtain ANCA Add zithromax for atypical coverage Steroids May need bronchoscopy
--- NOTE | 2017-04-12 16:34 | CONS ---
DATE OF CONSULTATION: 04/12/2017 PULMONARY CONSULTATION REFERRING PHYSICIAN: JONI Whiteside HISTORY OF PRESENT ILLNESS: The patient is a 77-year-old black female with a past medical history of hypertension, hypothyroidism, polymyalgia, history of pneumonia 1 year ago, has apparently had recurrent episode approximately 2 month ago treated with antibiotics,steroids chronic venous stasis with nonhealing leg ulcer, admitted to [facility] with complaint of nonhealing leg ulcer as well as left lower extremity swelling and tenderness. Patient underwent a duplex at Dr. Silvestre's office which was negative for DVT. She was admitted with the above. On admission she was also noted to have an elevated creatinine and RBCs in the UA. Hospitalization was significant for as the patient last night started developing some increasing shortness of breath. Today a chest x-ray performed which revealed increasing bibasilar infiltrates. She also underwent, she had episodes of moderate hemoptysis described as dark blood. Of note is the patient states that approximately a month and a half ago she had an episode of pneumonia. At the time she was apparently treated with Zithromax. She complained, apparently her symptoms continued with weakness and shortness of breath and cough. She was then placed on erythromycin and steroids which did offer significant improvement. Patient was admitted on April 09 secondary to a lower extremity nonhealing ulcer as well as lower extremity swelling. The patient's x-ray on admission revealed evidence of bibasilar infiltrates. Subsequent film on April 11 reveals extensive bilateral infiltrates. She underwent a CAT scan earlier which reveals extensive bilateral consolidations. Patient denies any history of COPD or asthma. There is no history of occupational exposure, no history of recent travel. She has a pet cat at home. Denies any previous history of hemoptysis. Denies any history of TB. She states that she did have an episode of pneumonia 1 year ago, treated with antibiotics. PAST MEDICAL HISTORY: Again includes hypertension, chronic venous stasis as well as polymyalgia. REVIEW OF SYSTEMS: Positive dyspnea. Positive weakness. Positive hemoptysis. No chest pain. No palpitations. No abdominal pain. Positive left lower extremity swelling and tenderness. CURRENT MEDICATIONS: Include piperacillin, Bactroban, heparin, Colace, Mirapex, senna, aspirin, morphine, Roxicodone, levothyroxine. PHYSICAL EXAMINATION: General: The patient is an elderly female, well-developed, well-nourished, awake, alert, mildly dyspneic but in no acute distress. Vital signs: She is currently afebrile. Blood pressure 121/69, respiratory rate 19 to 20, O2 saturation is 95% on 2 L. HEENT: Head is normocephalic, atraumatic. Neck: Supple. Heart: Regular. S1, S2. Chest: Bilateral crackles at the bases. Abdomen: Soft. Bowel sounds positive. Extremities: There is left lower extremity swelling and tenderness. LABORATORY: Urinalysis 2+ protein, 3+ heme. WBC is 10.6, hemoglobin 7.2, hematocrit 21, platelet count 330,000. INR is 1.41. Chemistry is BUN 29, creatinine 1.9. Chest CT as noted earlier. IMPRESSION: 1. Extensive bilateral infiltrates with hemoptysis and hypoxemia. 2. Acute hypoxemia with respiratory failure secondary to number 1. 3. Extensive bilateral infiltrates, cannot exclude possible pneumonia, although patient afebrile. Cannot exclude possible vasculitis, possible pulmonary renal syndrome ( Wegeners,Everardo) in view of anemia, renal insufficiency as well as hemoptysis and bilateral infiltrates. 4. Rule out possible connective tissue disorder. Patient gives family history of lupus. 5. Tezii-zy-vjcoetu renal insufficiency. 6. Hypertension. 7. Chronic venous insufficiency. PLAN: Broad spectrum antibiotics as per infectious disease. Obtain cultures. Monitor ,and quantify hemoptysis. Obtain followup chest x-rays. Obtain serology, cANCA, KEELEY. If no improvement, will schedule flexible bronchoscopy, possible renal bx. PATRICIA CORBIN M.D. [id number] MTDD
[2017-04-12 16:55] LABS: ARTERIAL BLOOD GAS BASE EXCESS 0.4 meq/l (-2-2); ARTERIAL BLOOD GAS HCO3 24.1 meq/L (22-26); ARTERIAL BLOOD GAS pH 7.43 (7.35-7.45)
[2017-04-12 16:58] LABS: ALLENS TEST POSITIVE; ART PUNCT SITE LEFT RADIAL; LPM/O2% room air; PT. ON O2? no
[2017-04-12 16:59] LABS: ARTERIAL BLD GAS O2 SATURATION 85.9 % (90-98.9); ARTERIAL BLOOD GAS PO2 50.8 mmHg (70-100)
[2017-04-12] MEDS ORDERED: MINERAL OIL ENEMA 133 ML ENEMA PR ONE (17:50)
--- NOTE | 2017-04-12 17:51 | PN ---
Progress Note, Physician History of Present Illness: Pt seen and examined at bedside. She had shortness of breath last night. She says her breathing is better today. Pt complains of constipation and says she has not had a bowel movement in about 2 weeks. - Current Medication List Current Medications: Active Medications Aspirin (Asa -) 81 mg PO DAILY [facility] Last Admin: 04/12/17 09:41 Dose: 81 mg Collagenase (Santyl -) 1 applic TP DAILY [facility] Last Admin: 04/11/17 15:20 Dose: 1 applic Docusate Sodium (Colace -) 100 mg PO BID [facility] Last Admin: 04/12/17 09:41 Dose: 100 mg Heparin Sodium (Porcine) (Heparin -) 5,000 unit SQ Q8H-IV [facility] Last Admin: 04/12/17 09:41 Dose: 5,000 unit Piperacillin Sod/Tazobactam (Sod 3.375 gm/ Dextrose) 50 mls @ 100 mls/hr IVPB Q8H-IV [facility] Last Admin: 04/12/17 09:42 Dose: 100 mls/hr Azithromycin (Zithromax 500mg Ivpb (Pre-Docked)) 250 mls @ 250 mls/hr IVPB DAILY [facility] Levothyroxine Sodium 100 mcg/ (Levothyroxine Sodium 12.5 mcg) 112.5 mcg PO DAILY@0700 [facility] Methylprednisolone Sodium Succinate (Solu-Medrol -) 60 mg IVPB Q6H-IV [facility] Morphine Sulfate (Morphine Injection -) 1 mg IVPUSH Q6H PRN PRN Reason: PAIN Last Admin: 04/11/17 17:46 Dose: 1 mg Mupirocin (Bactroban 2% Cream -) 1 applic TP BID [facility] Last Admin: 04/11/17 21:52 Dose: 1 applic Ondansetron HCl (Zofran Injection) 4 mg IVPB Q6H PRN PRN Reason: NAUSEA Last Admin: 04/11/17 05:37 Dose: 4 mg Oxycodone HCl (Roxicodone -) 5 mg PO Q4H PRN PRN Reason: PAIN Last Admin: 04/11/17 05:36 Dose: 5 mg Polyethylene Glycol (Miralax (For Daily Use) -) 17 gm PO DAILY [facility] Last Admin: 04/12/17 09:42 Dose: 17 gm Senna (Senna -) 1 tab PO HS [facility] Last Admin: 04/11/17 21:51 Dose: 1 tab - Objective Vital Signs: Vital Signs Temperature 98.7 F 04/12/17 10:00 Pulse Rate 74 04/12/17 10:00 Respiratory Rate 19 04/12/17 10:00 Blood Pressure 121/69 04/12/17 10:00 O2 Sat by Pulse Oximetry (%) 97 04/12/17 10:00 Constitutional: Yes: Calm Eyes: Yes: Conjunctiva Clear HENT: Yes: Atraumatic Cardiovascular: Yes: S1, S2 Respiratory: Yes: Wheezes Gastrointestinal: Yes: Soft Genitourinary: Yes: WNL Musculoskeletal: Yes: WNL Edema: Yes Edema: LLE: Trace, RLE: Trace Psychiatric: Yes: Oriented Labs: CBC, BMP 04/12/17 05:30 04/12/17 05:30 INR, PTT INR 1.41 (0.82-1.09) H 04/09/17 14:23 Problem List - Problems (1) Acute kidney injury Code(s): N17.9 - ACUTE KIDNEY FAILURE, UNSPECIFIED (2) Cellulitis Code(s): L03.90 - CELLULITIS, UNSPECIFIED Qualifiers: Site of cellulitis: extremity Site of cellulitis of extremity: lower extremity Laterality: unspecified laterality Qualified Code(s): L03.119 - Cellulitis of unspecified part of limb (3) Hypothyroid Code(s): E03.9 - HYPOTHYROIDISM, UNSPECIFIED (4) Venous stasis of both lower extremities Code(s): I87.8 - OTHER SPECIFIED DISORDERS OF VEINS Assessment/Plan Current Medications Generic Name Dose Route Start Last Admin Trade Name Byron PRN Reason Stop Dose Admin Aspirin 81 mg 04/10/17 10:00 04/12/17 09:41 Asa - PO 81 mg DAILY [facility] Administration Collagenase 1 applic 04/10/17 10:00 04/11/17 15:20 Santyl - TP 1 applic DAILY [facility] Administration Docusate Sodium 100 mg 04/10/17 10:00 04/12/17 09:41 Colace - PO 100 mg BID [facility] Administration Heparin Sodium (Porcine) 5,000 unit 04/09/17 18:00 04/12/17 09:41 Heparin - SQ 5,000 unit Q8H-IV [facility] Administration Piperacillin Sod/Tazobactam 50 mls @ 100 mls/hr 04/10/17 10:35 04/12/17 09:42 Sod 3.375 gm/ Dextrose IVPB 100 mls/hr Q8H-IV [facility] Administration Azithromycin 250 mls @ 250 mls/hr 04/12/17 16:15 Zithromax 500mg Ivpb (Pre-Docked) IVPB DAILY [facility] Levothyroxine Sodium 100 mcg/ 112.5 mcg 04/13/17 07:00 Levothyroxine Sodium 12.5 mcg PO DAILY@0700 [facility] Methylprednisolone Sodium Succinate 60 mg 04/12/17 21:00 Solu-Medrol - IVPB Q6H-IV [facility] Mineral Oil 133 ml 04/12/17 17:50 Fleet Mineral Oil Rectal Enema - PA 04/12/17 17:51 NOW ONE Morphine Sulfate 1 mg 04/11/17 10:49 04/11/17 17:46 Morphine Injection - IVPUSH 1 mg Q6H PRN Administration PAIN Mupirocin 1 applic 04/10/17 22:00 04/11/17 21:52 Bactroban 2% Cream - TP 1 applic BID [facility] Administration Ondansetron HCl 4 mg 04/10/17 08:46 04/11/17 05:37 Zofran Injection IVPB 4 mg Q6H PRN Administration NAUSEA Oxycodone HCl 5 mg 04/10/17 08:46 04/11/17 05:36 Roxicodone - PO 5 mg Q4H PRN Administration PAIN Polyethylene Glycol 17 gm 04/10/17 10:00 04/12/17 09:42 Miralax (For Daily Use) - PO 17 gm DAILY [facility] Administration Senna 1 tab 04/10/17 22:00 04/11/17 21:51 Senna - PO 1 tab HS [facility] Administration Laboratory Tests 04/11/17 04/12/17 16:30 05:30 Hgb 7.2 L KEELEY Screen Pending c-ANCA Pending Proteinase 3 (PR3) Pending p-ANCA Pending Atypical p-ANCA Pending Myeloperoxidase Ab Pending Double Strand DNA Ab Pending Laboratory Tests 04/11/17 16:30 Urine Eosinophils Pending Impression 1. MYRTLE 2. lower extremity ulcer 3. hypothyroid 4. HTN 5. polymyalgia 6. anemia Plan - agree with stopping fluids - renal workup is in progress - follow up ct chest - monitor hg - FENa is 0.65 - renal ultrasound reviewed, consistent with CKD - will follow - she does have blood and protein in the urine - check peripheral smear - send stool for occult blood Dr Hamilton
[2017-04-12] MEDS: AZITHROMYCIN IVPB 250 ML IVPB SCH (18:30)
[2017-04-12] MEDS: methylPREDNISolone NA SUCC 40 MG/1 ML VIAL IVPB SCH (22:45)
[2017-04-12] MEDS: SENNOSIDES 8.6MG TABLET (FP) PO SCH (22:45)
[2017-04-13] MEDS ORDERED: PIPERACILLIN/TAZOBACTAM 3.375 GM VIAL IVPB ONE ×3 (01:00→15:12)
[2017-04-13] MEDS ORDERED: DEXTROSE 5%-WATER - 50 ML IVPB ONE ×3 (01:01→15:12)
[2017-04-13] MEDS: HEPARIN NA (PORCINE) 5,000 UNITS/ML 1ML VIAL SQ SCH ×3 (01:25→17:01)
[2017-04-13] MEDS: PIPERACILLIN/TAZOB 3.375 GM 3.375 GM in DEXTROSE 5%-WATER - 50 ML IVPB SCH ×3 (01:26→17:01)
[2017-04-13] MEDS: methylPREDNISolone NA SUCC 40 MG/1 ML VIAL IVPB SCH ×4 (02:05→20:43)
[2017-04-13] MEDS ORDERED: LEVOTHYROXINE NA 100 MCG TABLET (FP) ONE (06:33)
[2017-04-13] MEDS ORDERED: LEVOTHYROXINE NA 25 MCG TABLET (FP) ONE (06:34)
--- NOTE | 2017-04-13 06:36 | PN ---
Progress Note, Physician History of Present Illness: seen and examined today in [facility]. no overnight events. no new complaints. states she feels about the same today. - Current Medication List Current Medications: Active Medications Aspirin (Asa -) 81 mg PO DAILY [facility] Last Admin: 04/12/17 09:41 Dose: 81 mg Collagenase (Santyl -) 1 applic TP DAILY [facility] Last Admin: 04/12/17 11:00 Dose: 1 applic Docusate Sodium (Colace -) 100 mg PO BID [facility] Last Admin: 04/12/17 22:45 Dose: 100 mg Heparin Sodium (Porcine) (Heparin -) 5,000 unit SQ Q8H-IV [facility] Last Admin: 04/13/17 01:25 Dose: 5,000 unit Piperacillin Sod/Tazobactam (Sod 3.375 gm/ Dextrose) 50 mls @ 100 mls/hr IVPB Q8H-IV [facility] Last Admin: 04/13/17 01:26 Dose: 100 mls/hr Azithromycin (Zithromax 500mg Ivpb (Pre-Docked)) 250 mls @ 250 mls/hr IVPB DAILY [facility] Last Admin: 04/12/17 18:30 Dose: 250 mls/hr Levothyroxine Sodium 100 mcg/ (Levothyroxine Sodium 12.5 mcg) 112.5 mcg PO DAILY@0700 [facility] Methylprednisolone Sodium Succinate (Solu-Medrol -) 60 mg IVPB Q6H-IV [facility] Last Admin: 04/13/17 02:05 Dose: 60 mg Morphine Sulfate (Morphine Injection -) 1 mg IVPUSH Q6H PRN PRN Reason: PAIN Last Admin: 04/11/17 17:46 Dose: 1 mg Mupirocin (Bactroban 2% Cream -) 1 applic TP BID [facility] Last Admin: 04/12/17 22:45 Dose: 1 applic Ondansetron HCl (Zofran Injection) 4 mg IVPB Q6H PRN PRN Reason: NAUSEA Last Admin: 04/11/17 05:37 Dose: 4 mg Oxycodone HCl (Roxicodone -) 5 mg PO Q4H PRN PRN Reason: PAIN Last Admin: 04/11/17 05:36 Dose: 5 mg Polyethylene Glycol (Miralax (For Daily Use) -) 17 gm PO DAILY [facility] Last Admin: 04/12/17 09:42 Dose: 17 gm Senna (Senna -) 1 tab PO HS [facility] Last Admin: 04/12/17 22:45 Dose: 1 tab - Objective Vital Signs: Vital Signs Temperature 98.6 F 04/13/17 02:00 Pulse Rate 63 04/13/17 02:00 Respiratory Rate 20 04/13/17 02:00 Blood Pressure 119/55 04/13/17 02:00 O2 Sat by Pulse Oximetry (%) 97 04/12/17 22:00 Constitutional: Yes: No Distress, Calm Eyes: Yes: Conjunctiva Clear, EOM Intact, PERRL HENT: Yes: Atraumatic, Normocephalic Neck: Yes: Supple, Trachea Midline Cardiovascular: Yes: Regular Rate and Rhythm, S1, S2. No: Bradycardia, Tachycardia, Pulse Irregular, Bruit, JVD, Gallop, Murmur, Rub, S3, S4, Varicosities Respiratory: Yes: Regular, Rhonchi. No: Rales, SOB, Wheezes Gastrointestinal: Yes: Normal Bowel Sounds, Soft. No: Distention, Tenderness Musculoskeletal: Yes: Muscle Weakness Edema: LLE: Trace, RLE: Trace Neurological: Yes: Alert, Oriented Psychiatric: Yes: Alert, Oriented Labs: CBC, BMP 04/12/17 05:30 04/12/17 05:30 INR, PTT INR 1.41 (0.82-1.09) H 04/09/17 14:23 - ....Imaging Chest X-ray: Report Reviewed, Image Reviewed EKG: Report Reviewed, Image Reviewed Other: Report Reviewed, Image Reviewed (tele-nsr, pvcs) Assessment/Plan 87 year old woman a/w nonhealing LE ulcer, cellulitis, possible PNA, mildly elevated troponin, MYRTLE. Elevated troponin-minimally elevated with normal CK -unlikely ACS -trop trended down -no chest pain or sig ekg changes -no events on tele -ECHO: normal LVEF; moderate bilateral atrial enlargement -plan as per Dr. Alvarez note is for stress MIBI when stable -cont ASA for now Diastolic CHF-chronic -overall euvolemic -hold off on diuresis for now Sepsis/Cellulitis/PNA -receiving Abx and steroids Non-healing wound -Vascular following
[2017-04-13] MEDS: LEVOTHYROXINE PO SCH (06:41)
[2017-04-13 07:03] LABS: BASOPHIL 0.3 % (0-2.0); EOSINOPHIL 0.1 % (0-4.5); MCH 28.4 pg (25.7-33.7); MCHC 33.3 g/dl (32.0-36.0); MEAN CELL VOLUME 85.3 fl (80-96); MEAN PLT VOLUME 7.5 fl (7.5-11.1); NEUTROPHILS 94.5 % (42.8-82.8); PLATELET COUNT 354 K/MM3 (134-434); RDW 14.6 % (11.6-15.6); WHITE BLOOD COUNT 10.4 K/mm3 (4.0-10.0)
[2017-04-13 07:19] LABS: ANION GAP 7 (8-16); CO2 25 mmol/L (21-32); CREATININE 2.1 mg/dL (0.55-1.02); GLUCOSE,RANDOM 163 mg/dL (74-106); LDH 201 U/L (84-246)
[2017-04-13 08:07] LABS: SERUM IRON 13 ug/dL (27-139); TOTAL IRON BINDING CAPACITY 163 ug/dL (250-450); TRANSFERRIN 127 mg/dL (200-370); UIBC 150 ug/dL (118-369)
[2017-04-13] MEDS ORDERED: PT OWN MED DRAWER 7, Y5N ONE ×2 (08:54→21:24)
[2017-04-13] MEDS: AZITHROMYCIN IVPB 250 ML IVPB SCH (09:49)
[2017-04-13] MEDS: POLYETHYLENE GLYCOL 3350 119 GM BTL PO SCH (09:50)
[2017-04-13] MEDS: DOCUSATE SODIUM 100 MG CAPSULE (FP) PO SCH ×2 (09:50→21:30)
[2017-04-13] MEDS: ASPIRIN 81 MG CHEWABLE TABLETS PO SCH (09:50)
--- NOTE | 2017-04-13 10:36 | PN ---
Physical Exam: SUBJECTIVE: Patient seen and examined. Denies any pain or shortness of brath OBJECTIVE hmg/hct 7.4/22.4, hesitant about blood transfusion stool for occult blood to be sent, pt is having BM now Will transfuse one unit of prbc for anemia Vital Signs Period Temp Pulse Resp BP Sys/Horn Pulse Ox Last 24 Hr 97.6 F-98.7 F 56-87 18-20 119-143/46-81 97-97 GENERAL: The patient is awake, alert, and fully oriented, in no acute distress. HEAD: Normal with no signs of trauma. EYES: PERRL, extraocular movements intact, sclera anicteric, conjunctiva clear. No ptosis. ENT: Ears normal, nares patent, oropharynx clear without exudates, moist mucous membranes. NECK: Trachea midline, full range of motion, supple. LUNGS: Breath sounds equal, clear to auscultation bilaterally, no wheezes, shortness of breath at rest, requires 2 liters of supplemental oxygen HEART: Regular rate and rhythm, S1, S2 without murmur, rub or gallop. ABDOMEN: Soft, nontender, nondistended, normoactive bowel sounds, no guarding, no rebound, no hepatosplenomegaly, no masses. EXTREMITIES: 2+ pulses, warm, well-perfused, no edema. NEUROLOGICAL: Normal speech, gait not observed. PSYCH: Normal mood, normal affect. SKIN: RLE medial open wound clean, pink, no bleeding + pulse on right foot. LLE : dressing cdi, wound not viewed, faint pulse felt on left foot. Laboratory Results - last 24 hr 04/12/17 04/12/17 04/12/17 05:30 08:45 10:30 WBC RBC Hgb Hct MCV MCH MCHC RDW Plt Count MPV Neutrophils % Lymphocytes % Monocytes % Eosinophils % Basophils % Puncture Site ABG pH ABG pCO2 at Pt Temp ABG pO2 at Pt Temp ABG HCO3 ABG O2 Sat (Measured) ABG O2 Content ABG Base Excess Aaron Test Oxygen Flow Rate PEEP Sodium 142 Potassium 4.0 Chloride 108 H Carbon Dioxide 25 Anion Gap 9 BUN 29 H Creatinine 1.9 H Random Glucose 94 Lactic Acid Calcium 7.8 L Iron TIBC Iron Saturation Transferrin Ferritin 294.937 H LD Total Ur Random Sodium Ur Random Potassium Ur Random Chloride Urine Creatinine Cancelled Blood Type O POSITIVE Antibody Screen Positive H Antibody Identification TNP Crossmatch See Detail 04/12/17 04/12/17 04/12/17 10:30 14:10 14:10 WBC RBC Hgb Hct MCV MCH MCHC RDW Plt Count MPV Neutrophils % Lymphocytes % Monocytes % Eosinophils % Basophils % Puncture Site ABG pH ABG pCO2 at Pt Temp ABG pO2 at Pt Temp ABG HCO3 ABG O2 Sat (Measured) ABG O2 Content ABG Base Excess Aaron Test Oxygen Flow Rate PEEP Sodium Potassium Chloride Carbon Dioxide Anion Gap BUN Creatinine Random Glucose Lactic Acid Calcium Iron 13 L TIBC 163 L Iron Saturation 8 L Transferrin 127 L Ferritin Cancelled LD Total Ur Random Sodium 68 Ur Random Potassium 37.2 Ur Random Chloride 82 Urine Creatinine 89.5 Blood Type Antibody Screen Antibody Identification Crossmatch 04/12/17 04/12/17 04/12/17 14:10 16:50 18:30 WBC RBC Hgb Hct MCV MCH MCHC RDW Plt Count MPV Neutrophils % Lymphocytes % Monocytes % Eosinophils % Basophils % Puncture Site Left radial ABG pH 7.43 ABG pCO2 at Pt Temp 37.1 ABG pO2 at Pt Temp 50.8 L ABG HCO3 24.1 ABG O2 Sat (Measured) 85.9 L ABG O2 Content 10.4 L ABG Base Excess 0.4 Aaron Test Positive Oxygen Flow Rate room air PEEP 0.0 Sodium Potassium Chloride Carbon Dioxide Anion Gap BUN Creatinine Random Glucose Lactic Acid 0.9 Calcium Iron Cancelled TIBC Cancelled Iron Saturation Cancelled Transferrin Ferritin LD Total Ur Random Sodium Ur Random Potassium Ur Random Chloride Urine Creatinine Blood Type Antibody Screen Antibody Identification Crossmatch 04/13/17 04/13/17 06:15 06:15 WBC 10.4 H RBC 2.62 L Hgb 7.4 L Hct 22.4 L MCV 85.3 MCH 28.4 MCHC 33.3 RDW 14.6 Plt Count 354 MPV 7.5 Neutrophils % 94.5 H Lymphocytes % 4.7 L D Monocytes % 0.4 L D Eosinophils % 0.1 D Basophils % 0.3 Puncture Site ABG pH ABG pCO2 at Pt Temp ABG pO2 at Pt Temp ABG HCO3 ABG O2 Sat (Measured) ABG O2 Content ABG Base Excess Aaron Test Oxygen Flow Rate PEEP Sodium 139 Potassium 4.2 Chloride 107 Carbon Dioxide 25 Anion Gap 7 L BUN 30 H Creatinine 2.1 H Random Glucose 163 H D Lactic Acid Calcium 8.0 L Iron TIBC Iron Saturation Transferrin Ferritin LD Total 201 Ur Random Sodium Ur Random Potassium Ur Random Chloride Urine Creatinine Blood Type Antibody Screen Antibody Identification Crossmatch Active Medications Generic Name Dose Route Start Last Admin Trade Name Freq PRN Reason Stop Dose Admin Aspirin 81 mg 04/10/17 10:00 04/13/17 09:50 Asa - PO 81 mg DAILY [facility] Administration Collagenase 1 applic 04/10/17 10:00 04/12/17 11:00 Santyl - TP 1 applic DAILY [facility] Administration Docusate Sodium 100 mg 04/10/17 10:00 04/13/17 09:50 Colace - PO 100 mg BID [facility] Administration Heparin Sodium (Porcine) 5,000 unit 04/09/17 18:00 04/13/17 09:50 Heparin - SQ 5,000 unit Q8H-IV [facility] Administration Piperacillin Sod/Tazobactam 50 mls @ 100 mls/hr 04/10/17 10:35 04/13/17 09:46 Sod 3.375 gm/ Dextrose IVPB 100 mls/hr Q8H-IV [facility] Administration Azithromycin 250 mls @ 250 mls/hr 04/12/17 16:15 04/13/17 09:49 Zithromax 500mg Ivpb (Pre-Docked) IVPB 250 mls/hr DAILY [facility] Administration Levothyroxine Sodium 100 mcg/ 112.5 mcg 04/13/17 07:00 04/13/17 06:41 Levothyroxine Sodium 12.5 mcg PO 112.5 mcg DAILY@0700 [facility] Administration Methylprednisolone Sodium Succinate 60 mg 04/12/17 21:00 04/13/17 09:46 Solu-Medrol - IVPB 60 mg Q6H-IV [facility] Administration Morphine Sulfate 1 mg 04/11/17 10:49 04/11/17 17:46 Morphine Injection - IVPUSH 1 mg Q6H PRN Administration PAIN Mupirocin 1 applic 04/10/17 22:00 04/12/17 22:45 Bactroban 2% Cream - TP 1 applic BID [facility] Administration Ondansetron HCl 4 mg 04/10/17 08:46 04/11/17 05:37 Zofran Injection IVPB 4 mg Q6H PRN Administration NAUSEA Oxycodone HCl 5 mg 04/10/17 08:46 04/11/17 05:36 Roxicodone - PO 5 mg Q4H PRN Administration PAIN Polyethylene Glycol 17 gm 04/10/17 10:00 04/13/17 09:50 Miralax (For Daily Use) - PO 17 gm DAILY [facility] Administration Senna 1 tab 04/10/17 22:00 04/12/17 22:45 Senna - PO 1 tab HS [facility] Administration ASSESSMENT/PLAN: Patient is a 77 year old female with a past medical history of of non healing chronic RLE venous ulcer, borderline hypertension, polymyalgia, hypothyroidism, sent to ED by Dr. Silvestre for b/l lower extremity cellulitis. ID: Bilateral Lower Ext. Cellulitis - acute on chronic A/P: Hx of chronic LE ulcers secondary to venous statis Sherin of MRSA, VRE, on contact precautions On Zoysn for LE cellulitis, ID following Vascular following Wound dressing with Santyl Hematology: A/P: Symptomatic anemia Having shortness of breath with minimal exertion Blood/Iron studies with anemia of chronic disease Give 1 unit of prbc, patient continues to hesitate, wants to wait for a.m. CBC 1 unit PRBC on standby Blood occult stool negative Pulmonary: Hemoptysis episode yesterday A/P: CT chest ordered, pulm following CT chest pending read Renal: MYRTLE A/P: Renal/bladder ultrasound ordered Renal following [place] bumped up to 2.1 As per renal, pt may need kidney biopsy secondary to hematuria Endocrine: Hypothyroidism A/P: TSH elevated synthroid increased to 112.5mcg on 04/13 Prophylaxis: DVT: Heparin 5000 SC q8 GI: Protonix F.E.N. Fluids: tolerating PO Electrolytes: monitor Nutrition: low sodium diet Disposition: Full code. Visit type - Emergency Visit Emergency Visit: Yes ED Registration Date: 04/09/17 Care time: The patient presented to the Emergency Department on the above date and was hospitalized for further evaluation of their emergent condition. - New Patient This patient is new to me today: Yes Date on this admission: 04/13/17 - Critical Care Critical Care patient: No - Discharge Referral Referred to [facility] Med P.C.: No
--- NOTE | 2017-04-13 12:54 | PN ---
Progress Note (short form) - Note Progress Note: PULMONARY Feels better today, less short of breath. Less hemoptysis. Last Vital Signs Temp Pulse Resp BP Pulse Ox 98.4 F 75 20 126/57 97 04/13/17 10:00 04/13/17 10:00 04/13/17 10:00 04/13/17 10:00 04/13/17 09:00 Gen: tachypneic with speaking Heart: RRR Lung: scattered rales Abd: soft, nontender Ext: + edema CBC, BMP 04/13/17 06:15 04/13/17 06:15 Active Medications Aspirin (Asa -) 81 mg PO DAILY [facility] Last Admin: 04/13/17 09:50 Dose: 81 mg Collagenase (Santyl -) 1 applic TP DAILY [facility] Last Admin: 04/12/17 11:00 Dose: 1 applic Docusate Sodium (Colace -) 100 mg PO BID [facility] Last Admin: 04/13/17 09:50 Dose: 100 mg Heparin Sodium (Porcine) (Heparin -) 5,000 unit SQ Q8H-IV [facility] Last Admin: 04/13/17 09:50 Dose: 5,000 unit Piperacillin Sod/Tazobactam (Sod 3.375 gm/ Dextrose) 50 mls @ 100 mls/hr IVPB Q8H-IV [facility] Last Admin: 04/13/17 09:46 Dose: 100 mls/hr Azithromycin (Zithromax 500mg Ivpb (Pre-Docked)) 250 mls @ 250 mls/hr IVPB DAILY [facility] Last Admin: 04/13/17 09:49 Dose: 250 mls/hr Levothyroxine Sodium 100 mcg/ (Levothyroxine Sodium 12.5 mcg) 112.5 mcg PO DAILY@0700 [facility] Last Admin: 04/13/17 06:41 Dose: 112.5 mcg Methylprednisolone Sodium Succinate (Solu-Medrol -) 60 mg IVPB Q6H-IV [facility] Last Admin: 04/13/17 09:46 Dose: 60 mg Morphine Sulfate (Morphine Injection -) 1 mg IVPUSH Q6H PRN PRN Reason: PAIN Last Admin: 04/11/17 17:46 Dose: 1 mg Mupirocin (Bactroban 2% Cream -) 1 applic TP BID [facility] Last Admin: 04/12/17 22:45 Dose: 1 applic Ondansetron HCl (Zofran Injection) 4 mg IVPB Q6H PRN PRN Reason: NAUSEA Last Admin: 04/11/17 05:37 Dose: 4 mg Oxycodone HCl (Roxicodone -) 5 mg PO Q4H PRN PRN Reason: PAIN Last Admin: 04/11/17 05:36 Dose: 5 mg Polyethylene Glycol (Miralax (For Daily Use) -) 17 gm PO DAILY [facility] Last Admin: 04/13/17 09:50 Dose: 17 gm Senna (Senna -) 1 tab PO HS [facility] Last Admin: 04/12/17 22:45 Dose: 1 tab A/P r/o Pneumonia vs Interstitial Lung Disease vs Vasculitis Hemoptysis HTN Anemia Hypothyroidism - continue empiric antibiotics - empiric steroids - inhaled bronchodilators - O2 to keep SpO2 >90% - monitor and quantify hemoptysis - repeat CXR in AM
--- NOTE | 2017-04-13 13:59 | PN ---
Progress Note (short form) - Note Progress Note: RENAL awake and alert comfortable Last Vital Signs Temp Pulse Resp BP Pulse Ox 98.4 F 75 20 126/57 97 04/13/17 10:00 04/13/17 10:00 04/13/17 10:00 04/13/17 10:00 04/13/17 09:00 lungs clear cvs s1s2 rr +BERNABE abd soft ext +edema neuro a+ox3 skin has dressings on legs Current Medications Generic Name Dose Route Start Last Admin Trade Name Freq PRN Reason Stop Dose Admin Aspirin 81 mg 04/10/17 10:00 04/13/17 09:50 Asa - PO 81 mg DAILY [facility] Administration Collagenase 1 applic 04/10/17 10:00 04/12/17 11:00 Santyl - TP 1 applic DAILY [facility] Administration Docusate Sodium 100 mg 04/10/17 10:00 04/13/17 09:50 Colace - PO 100 mg BID [facility] Administration Heparin Sodium (Porcine) 5,000 unit 04/09/17 18:00 04/13/17 09:50 Heparin - SQ 5,000 unit Q8H-IV [facility] Administration Piperacillin Sod/Tazobactam 50 mls @ 100 mls/hr 04/10/17 10:35 04/13/17 09:46 Sod 3.375 gm/ Dextrose IVPB 100 mls/hr Q8H-IV [facility] Administration Azithromycin 250 mls @ 250 mls/hr 04/12/17 16:15 04/13/17 09:49 Zithromax 500mg Ivpb (Pre-Docked) IVPB 250 mls/hr DAILY [facility] Administration Levothyroxine Sodium 100 mcg/ 112.5 mcg 04/13/17 07:00 04/13/17 06:41 Levothyroxine Sodium 12.5 mcg PO 112.5 mcg DAILY@0700 [facility] Administration Methylprednisolone Sodium Succinate 60 mg 04/12/17 21:00 04/13/17 09:46 Solu-Medrol - IVPB 60 mg Q6H-IV [facility] Administration Morphine Sulfate 1 mg 04/11/17 10:49 04/11/17 17:46 Morphine Injection - IVPUSH 1 mg Q6H PRN Administration PAIN Mupirocin 1 applic 04/10/17 22:00 04/12/17 22:45 Bactroban 2% Cream - TP 1 applic BID MIL[facility] Administration Ondansetron HCl 4 mg 04/10/17 08:46 04/11/17 05:37 Zofran Injection IVPB 4 mg Q6H PRN Administration NAUSEA Oxycodone HCl 5 mg 04/10/17 08:46 04/11/17 05:36 Roxicodone - PO 5 mg Q4H PRN Administration PAIN Polyethylene Glycol 17 gm 04/10/17 10:00 04/13/17 09:50 Miralax (For Daily Use) - PO 17 gm DAILY [facility] Administration Senna 1 tab 04/10/17 22:00 04/12/17 22:45 Senna - PO 1 tab HS MILES Administration CBC, BMP 04/13/17 06:15 04/13/17 06:15 Impression 1. MYRTLE- slowly progressive 2. lower extremity ulcer 3. hypothyroid 4. HTN 5. polymyalgia 6. anemia 7. ckd, proteinuria and ultrasound suggested 8 hematuria Plan - keep off fluid - renal workup is in progress - might need kidney biopsy especially since she has hematuria and proteinuria MV
--- NOTE | 2017-04-13 14:42 | PN ---
Progress Note (short form) - Note Progress Note: VSS Left lateral foot large area of blistered skin. Other smaller wound at upper ankle. Non-escisional debridement of loose epithelium and exudate performed. Continue IV and topical antibiotics. Leg elevation. 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
--- NOTE | 2017-04-13 15:38 | PN ---
Progress Note, Physician History of Present Illness: Mildly tachypneic on nasal cannula Denies chest pain/ dysnea No hemoptysis today Afebrile - Current Medication List Current Medications: Active Medications Aspirin (Asa -) 81 mg PO DAILY [facility] Last Admin: 04/13/17 09:50 Dose: 81 mg Collagenase (Santyl -) 1 applic TP DAILY [facility] Last Admin: 04/12/17 11:00 Dose: 1 applic Docusate Sodium (Colace -) 100 mg PO BID [facility] Last Admin: 04/13/17 09:50 Dose: 100 mg Gentamicin Sulfate (Garamycin 0.1% Ointment -) 1 applic TP BID [facility] Heparin Sodium (Porcine) (Heparin -) 5,000 unit SQ Q8H-IV [facility] Last Admin: 04/13/17 09:50 Dose: 5,000 unit Piperacillin Sod/Tazobactam (Sod 3.375 gm/ Dextrose) 50 mls @ 100 mls/hr IVPB Q8H-IV [facility] Last Admin: 04/13/17 09:46 Dose: 100 mls/hr Azithromycin (Zithromax 500mg Ivpb (Pre-Docked)) 250 mls @ 250 mls/hr IVPB DAILY [facility] Last Admin: 04/13/17 09:49 Dose: 250 mls/hr Levothyroxine Sodium 100 mcg/ (Levothyroxine Sodium 12.5 mcg) 112.5 mcg PO DAILY@0700 [facility] Last Admin: 04/13/17 06:41 Dose: 112.5 mcg Methylprednisolone Sodium Succinate (Solu-Medrol -) 60 mg IVPB Q6H-IV [facility] Last Admin: 04/13/17 09:46 Dose: 60 mg Morphine Sulfate (Morphine Injection -) 1 mg IVPUSH Q6H PRN PRN Reason: PAIN Last Admin: 04/11/17 17:46 Dose: 1 mg Ondansetron HCl (Zofran Injection) 4 mg IVPB Q6H PRN PRN Reason: NAUSEA Last Admin: 04/11/17 05:37 Dose: 4 mg Oxycodone HCl (Roxicodone -) 5 mg PO Q4H PRN PRN Reason: PAIN Last Admin: 04/11/17 05:36 Dose: 5 mg Polyethylene Glycol (Miralax (For Daily Use) -) 17 gm PO DAILY [facility] Last Admin: 04/13/17 09:50 Dose: 17 gm Senna (Senna -) 1 tab PO HS [facility] Last Admin: 04/12/17 22:45 Dose: 1 tab - Objective Vital Signs: Vital Signs Temperature 98.0 F 04/13/17 14:00 Pulse Rate 86 04/13/17 14:00 Respiratory Rate 20 04/13/17 14:00 Blood Pressure 133/66 04/13/17 14:00 O2 Sat by Pulse Oximetry (%) 97 04/13/17 09:00 Constitutional: Yes: No Distress Eyes: Yes: Conjunctiva Clear Cardiovascular: Yes: Regular Rate and Rhythm, S1, S2 Respiratory: Yes: Other (+ crepitations R base) Gastrointestinal: Yes: Normal Bowel Sounds, Soft Edema: Yes Labs: CBC, BMP 04/13/17 06:15 04/13/17 06:15 INR, PTT INR 1.41 (0.82-1.09) H 04/09/17 14:23 Assessment/Plan LE cellulitis v. vasculitis Bilateral pulmonary consolidations MYRTLE Hx MRSA Continue zosyn. Zithromax for atypical coverage Steroids May need bronchoscopy
[2017-04-13] MEDS: COLLAGENASE CLOSTRIDIUM HIST. 30 GRAMS TUBE TP SCH (16:21)
[2017-04-13] MEDS: MUPIROCIN CA 2% TOPICAL CREAM 15 GM TUBE TP SCH (17:25)
[2017-04-13] MEDS: SENNOSIDES 8.6MG TABLET (FP) PO SCH (21:30)
[2017-04-13] MEDS: GENTAMICIN SO4 0.1% TOPICAL OINTMENT 15 GM/TUBE TUBE TP SCH (21:30)
--- NOTE | 2017-04-13 22:29 | CONSULT ---
Consult Consult Specialty:: Rheumatology. - History of Present Illness History of Present Illness: 77 year old female with PMHx of borderline hypertension, polymyalgia rheumatica and hypothyroidism, admitted with edema erythema and ulcers in both legs and shortness of breath, and in the hospital she developed hemoptysis and active urinary sediment with proteinuria and hematuria. HPI. The patient has history of episodes of edema and ulceration in the right leg in 2000, 2013 and February 2014, apparently diagnosed as venous stasis. In the last few days she developed edema and ulceration in the left leg and based on the possibility of cellulitis she was admitted to the hospital. Two weeks prior to admission she developed shortness of breath. She was diagnosed with Pneumonia, she wast started on antibiotics, however she did not improve and one week later she was started on Medrol pack with good response. Three days after admission she developed cough and hemoptysis and continued having shortness of breath. Yesterday she was started on Solumedrol 60 mg IBV QID and today she is feeling better. The patient denies joint pain or fever. CT scan of the chest reported with multifocal consolidation opacities in bilateral upper lobes, R>L with air bronchograms. Also consolidate opacities in the right middle lobe and left lower lobe and very small pleural effusions, L> R. Mediastinal lymphadenopathy and right hilar lymphadenopathy. Labs: ESR 80, creatinine" on admission 1.6, increased to 2.1., Urinalysis with protein 2+, blood 3+, RBC 83, WBC 41, hyaline casts 1, granular casts 8, and prot/creat ratio 0.97. Liver function tests were normal and anti-DNAds negative. Polymyalgia rheumatica: diagnosed 4 years ago and treated with steroids with good response. She had one relapse in the past and apparently the steroids were discontinued 5 months later. - History Source History Provided By: Patient, Medical Record Limitations to Obtaining History: No Limitations - Past Medical History Cardio/Vascular: Yes: HTN Pulmonary: Yes: Pneumonia Renal/: Yes: Renal Inusuff ...: No Rheumatology: Yes: Other (Polymyalgia rheumatica) Endocrine: Yes: Hypothyroidism Dermatology: Yes: Other (open LE wounds) - Past Surgical History Additional Surgical History: excision debridement of right ankle ulcer 2013 - Alcohol/Substance Use Hx Alcohol Use: No - Smoking History Smoking history: Never smoked Have you smoked in the past 12 months: No If you are a former smoker, when did you quit?: 30 years ago Home Medications - Allergies Allergies/Adverse Reactions: Allergies Allergy/AdvReac Type Severity Reaction Status Date / Time Sulfa (Sulfonamide Allergy Severe Verified 04/09/17 12:43 Antibiotics) - Home Medications Home Medications: Ambulatory Orders Levothyroxine [Synthroid -] 100 mcg PO DAILY 03/23/14 Review of Systems - Review of Systems Constitutional: reports: Malaise Eyes: reports: No Symptoms HENT: reports: No Symptoms Neck: reports: No Symptoms Cardiovascular: reports: Shortness of Breath Respiratory: reports: Hemoptysis, SOB Gastrointestinal: reports: No Symptoms Genitourinary: reports: No Symptoms Musculoskeletal: reports: Other (Swelling, tenderness, erythema and ulceration in both legs) Neurological: reports: No Symptoms Physical Exam Vital Signs: Vital Signs Temperature 98.4 F 04/13/17 20:50 Pulse Rate 73 04/13/17 20:50 Respiratory Rate 20 04/13/17 20:50 Blood Pressure 143/59 04/13/17 20:50 O2 Sat by Pulse Oximetry (%) 97 04/13/17 20:50 Constitutional: Yes: Mild Distress Eyes: Yes: WNL HENT: Yes: WNL Neck: Yes: WNL Cardiovascular: Yes: WNL Respiratory: Yes: Other (Few coarse crackles in the lower lobes.) Edema: Yes Labs: CBC, BMP 04/13/17 06:15 04/13/17 06:15 Laboratory Tests 04/09/17 04/11/17 04/11/17 13:20 07:00 16:30 ESR 80 H Urine Color Yellow Urine Appearance Cloudy Urine pH 5.0 D Ur Specific [place] 1.020 Urine Protein 2+ H Urine Glucose (UA) Negative Urine Ketones Negative Urine Blood 3+ H Urine Nitrite Negative Urine Bilirubin Negative Urine Urobilinogen Negative Urine RBC 83 Urine WBC 41 Hyaline Casts 1 Granular Casts 8 Protein/Creatinin Ratio Double Strand DNA Ab <1 04/12/17 09:00 ESR Urine Color Urine Appearance Urine pH Ur Specific [place] Urine Protein Urine Glucose (UA) Urine Ketones Urine Blood Urine Nitrite Urine Bilirubin Urine Urobilinogen Urine RBC Urine WBC Hyaline Casts Granular Casts Protein/Creatinin Ratio 0.97 Double Strand DNA Ab Problem List - Problems (1) Goodpasture syndrome Assessment/Plan: New onset of hemoptysis with multifocal consolidative opacities and possible glomerulonephritis (hematuria, proteinuria with hialine and granular casts) and progressive elevation of creatinine. 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 Rule out lupus or ANCA positive vasculitis. The patient is feeling better with Solumedrol 60 mg QID, however based on the potential bad prognosis, I suggest: increase steroids to 1 gr IV bolus per day for 3 days. I requested anti-basal- membrane antibody. As indicated by Dr. Camarillo, she should have a kidney biopsy as soon as possible and then consider starting oral cyclophophamide (2mg/ kg/d) and plasmapheresis. It is not clear if the cellulitis in lower limbs is related to the probable Goodpasture. I will discuss the case with Dr. Childers. Code(s): M31.0 - HYPERSENSITIVITY ANGIITIS
[2017-04-14] MEDS ORDERED: PIPERACILLIN/TAZOBACTAM 3.375 GM VIAL IVPB ONE ×3 (02:04→17:14)
[2017-04-14] MEDS ORDERED: DEXTROSE 5%-WATER - 50 ML IVPB ONE ×3 (02:04→17:14)
[2017-04-14] MEDS: PIPERACILLIN/TAZOB 3.375 GM 3.375 GM in DEXTROSE 5%-WATER - 50 ML IVPB SCH ×3 (02:17→18:05)
[2017-04-14] MEDS: HEPARIN NA (PORCINE) 5,000 UNITS/ML 1ML VIAL SQ SCH ×3 (02:18→18:05)
[2017-04-14] MEDS ORDERED: LEVOTHYROXINE NA 100 MCG TABLET (FP) ONE (05:34)
[2017-04-14] MEDS ORDERED: LEVOTHYROXINE NA 25 MCG TABLET (FP) ONE (05:35)
[2017-04-14] MEDS: LEVOTHYROXINE PO SCH ×2 (05:52→06:17)
--- NOTE | 2017-04-14 06:59 | PN ---
Progress Note, Physician History of Present Illness: seen and examined today in nad. no new complaints. - Current Medication List Current Medications: Active Medications Aspirin (Asa -) 81 mg PO DAILY [facility] Last Admin: 04/13/17 09:50 Dose: 81 mg Collagenase (Santyl -) 1 applic TP DAILY [facility] Last Admin: 04/13/17 16:21 Dose: Not Given Docusate Sodium (Colace -) 100 mg PO BID [facility] Last Admin: 04/13/17 21:30 Dose: 100 mg Gentamicin Sulfate (Garamycin 0.1% Ointment -) 1 applic TP BID [facility] Last Admin: 04/13/17 21:30 Dose: 1 applic Heparin Sodium (Porcine) (Heparin -) 5,000 unit SQ Q8H-IV [facility] Last Admin: 04/14/17 02:18 Dose: 5,000 unit Piperacillin Sod/Tazobactam (Sod 3.375 gm/ Dextrose) 50 mls @ 100 mls/hr IVPB Q8H-IV [facility] Last Admin: 04/14/17 02:17 Dose: 100 mls/hr Azithromycin (Zithromax 500mg Ivpb (Pre-Docked)) 250 mls @ 250 mls/hr IVPB DAILY [facility] Last Admin: 04/13/17 09:49 Dose: 250 mls/hr Levothyroxine Sodium 100 mcg/ (Levothyroxine Sodium 12.5 mcg) 112.5 mcg PO DAILY@0700 [facility] Last Admin: 04/14/17 06:17 Dose: Not Given Methylprednisolone Sodium Succinate (Solu-Medrol -) 1,000 mg IVPB DAILY [facility] Stop: 04/16/17 10:01 Morphine Sulfate (Morphine Injection -) 1 mg IVPUSH Q6H PRN PRN Reason: PAIN Last Admin: 04/11/17 17:46 Dose: 1 mg Ondansetron HCl (Zofran Injection) 4 mg IVPB Q6H PRN PRN Reason: NAUSEA Last Admin: 04/11/17 05:37 Dose: 4 mg Oxycodone HCl (Roxicodone -) 5 mg PO Q4H PRN PRN Reason: PAIN Last Admin: 04/11/17 05:36 Dose: 5 mg Polyethylene Glycol (Miralax (For Daily Use) -) 17 gm PO DAILY [facility] Last Admin: 04/13/17 09:50 Dose: 17 gm Senna (Senna -) 1 tab PO HS [facility] Last Admin: 04/13/17 21:30 Dose: 1 tab - Objective Vital Signs: Vital Signs Temperature 97.7 F 04/14/17 05:59 Pulse Rate 52 L 04/14/17 05:59 Respiratory Rate 20 04/14/17 05:59 Blood Pressure 128/50 04/14/17 05:59 O2 Sat by Pulse Oximetry (%) 97 04/13/17 22:00 Constitutional: Yes: Well Nourished, No Distress, Calm Eyes: Yes: Conjunctiva Clear, EOM Intact, PERRL HENT: Yes: Atraumatic, Normocephalic Neck: Yes: Supple, Trachea Midline Cardiovascular: Yes: Regular Rate and Rhythm, S1, S2. No: Bradycardia, Tachycardia, Pulse Irregular, Bruit, JVD, Gallop, Murmur, Rub, S3, S4, Varicosities Respiratory: Yes: Regular, Diminished. No: Rales, Rhonchi, Wheezes Gastrointestinal: Yes: Normal Bowel Sounds, Soft. No: Distention, Tenderness Edema: Yes Edema: LLE: Trace, RLE: Trace Peripheral Pulses WNL: Yes Peripheral Pulses: Left Doralis Pedis: 2+, Right Dorsalis Pedis: 2+ Neurological: Yes: Alert, Oriented Psychiatric: Yes: Alert, Oriented Labs: CBC, BMP 04/13/17 06:15 04/13/17 06:15 INR, PTT INR 1.41 (0.82-1.09) H 04/09/17 14:23 - ....Imaging Chest X-ray: Report Reviewed, Image Reviewed EKG: Report Reviewed, Image Reviewed Other: Report Reviewed, Image Reviewed (tele-nsr, sinus bradycardiac overnight, pvcs, couplets, 6 beats NSVT this am) Assessment/Plan 87 year old woman a/w nonhealing LE ulcer, cellulitis, possible PNA, mildly elevated troponin, MYRTLE. NSVT-6 beats this am -f/up electrolytes this am and replete as needed -cont tele monitoring for now Elevated troponin-minimally elevated with normal CK -unlikely ACS -trop trended down -no chest pain or sig ekg changes -no events on tele -ECHO: normal LVEF; moderate bilateral atrial enlargement -plan as per Dr. Alvarez note is for stress MIBI when stable -cont ASA for now Diastolic CHF-chronic -overall euvolemic -hold off on diuresis for now Sepsis/Cellulitis/PNA -receiving Abx and steroids Non-healing wound -Vascular following
[2017-04-14 08:16] LABS: BASOPHIL 0.2 % (0-2.0); MCH 27.6 pg (25.7-33.7); MCHC 32.6 g/dl (32.0-36.0); MEAN CELL VOLUME 84.8 fl (80-96); MEAN PLT VOLUME 7.8 fl (7.5-11.1); NEUTROPHILS 89.8 % (42.8-82.8); PLATELET COUNT 369 K/MM3 (134-434); RDW 14.6 % (11.6-15.6); WHITE BLOOD COUNT 12.5 K/mm3 (4.0-10.0)
[2017-04-14 08:41] LABS: ALBUMIN 2.1 g/dl (3.4-5.0); ALK PHOS 77 U/L (45-117); ANION GAP 8 (8-16); BILIRUBIN,TOTAL 0.3 mg/dL (0.2-1.0); CALCIUM 8.2 mg/dL (8.5-10.1); CO2 25 mmol/L (21-32); CREATININE 2.7 mg/dL (0.55-1.02); GLUCOSE,RANDOM 207 mg/dL (74-106); SGOT/AST 10 U/L (15-37); SGPT/ALT 18 U/L (12-78); TOT PROT 5.9 g/dl (6.4-8.2)
[2017-04-14] MEDS: ASPIRIN 81 MG CHEWABLE TABLETS PO SCH (09:52)
[2017-04-14] MEDS: GENTAMICIN SO4 0.1% TOPICAL OINTMENT 15 GM/TUBE TUBE TP SCH ×2 (09:53→21:38)
[2017-04-14] MEDS: POLYETHYLENE GLYCOL 3350 119 GM BTL PO SCH (09:53)
[2017-04-14] MEDS: DOCUSATE SODIUM 100 MG CAPSULE (FP) PO SCH ×2 (09:53→21:35)
[2017-04-14] MEDS: COLLAGENASE CLOSTRIDIUM HIST. 30 GRAMS TUBE TP SCH (09:53)
[2017-04-14] MEDS: methylPREDNISolone NA SUCC 40 MG/1 ML VIAL IVPB SCH (09:56)
--- NOTE | 2017-04-14 10:51 | PN ---
Physical Exam: SUBJECTIVE: Patient seen and examined. Denies chest pain, shortness of breath. OBJECTIVE: Will check mag levels Patient refusing 1 unit of prbc, risks and benefits reviewed. Patient wants to wait to tomorrow to decide. Vital Signs Period Temp Pulse Resp BP Sys/Horn Pulse Ox Last 24 Hr 97.7 F-98.4 F 52-86 20-20 128-143/50-69 97-97 GENERAL: The patient is awake, alert, and fully oriented, in no acute distress. HEAD: Normal with no signs of trauma. EYES: PERRL, extraocular movements intact, sclera anicteric, conjunctiva clear. No ptosis. ENT: Ears normal, nares patent, oropharynx clear without exudates, moist mucous membranes. NECK: Trachea midline, full range of motion, supple. LUNGS: Breath sounds equal, clear to auscultation bilaterally, no wheezes, shortness of breath at rest, requires 2 liters of supplemental oxygen HEART: Regular rate and rhythm, ABDOMEN: Soft, nontender, nondistended, normoactive bowel sounds, no guarding, no rebound, no hepatosplenomegaly, no masses. EXTREMITIES: 2+ pulses, warm, well-perfused, no edema. NEUROLOGICAL: Normal speech, gait not observed. PSYCH: Normal mood, normal affect. SKIN: RLE medial open wound clean, pink, no bleeding + pulse on right foot. LLE : dressing cdi, wound not viewed, faint pulse felt on left foot. Laboratory Results - last 24 hr 04/11/17 04/12/17 04/13/17 16:30 08:45 07:30 WBC RBC Hgb Hct MCV MCH MCHC RDW Plt Count MPV Neutrophils % Lymphocytes % Monocytes % Eosinophils % Basophils % ESR Haptoglobin 431 H Sodium Potassium Chloride Carbon Dioxide Anion Gap BUN Creatinine Creat Clearance w eGFR Random Glucose Calcium Total Bilirubin AST ALT Alkaline Phosphatase Total Protein Albumin Stool Occult Blood KEELEY Screen Positive H KEELEY Homogeneous Pattern 1:320 H KEELEY Nucleolar Pattern 1:320 H KEELEY Speckled Pattern TNP KEELEY Centromere Pattern TNP Double Strand DNA Ab <1 Blood Type O POSITIVE 04/13/17 04/14/17 04/14/17 11:30 07:00 07:00 WBC 12.5 H RBC 2.64 L Hgb 7.3 L Hct 22.4 L MCV 84.8 MCH 27.6 MCHC 32.6 RDW 14.6 Plt Count 369 MPV 7.8 Neutrophils % 89.8 H Lymphocytes % 7.2 L D Monocytes % 2.8 L D Eosinophils % 0.0 D Basophils % 0.2 ESR Haptoglobin Sodium 139 Potassium 4.4 Chloride 106 Carbon Dioxide 25 Anion Gap 8 BUN 46 H D Creatinine 2.7 H D Creat Clearance w eGFR 17.13 Random Glucose 207 H D Calcium 8.2 L Total Bilirubin 0.3 D AST 10 L D ALT 18 Alkaline Phosphatase 77 D Total Protein 5.9 L Albumin 2.1 L Stool Occult Blood Negative KEELEY Screen KEELEY Homogeneous Pattern KEEELY Nucleolar Pattern KEELEY Speckled Pattern KEELEY Centromere Pattern Double Strand DNA Ab Blood Type 04/14/17 07:00 WBC RBC Hgb Hct MCV MCH MCHC RDW Plt Count MPV Neutrophils % Lymphocytes % Monocytes % Eosinophils % Basophils % ESR 105 H Haptoglobin Sodium Potassium Chloride Carbon Dioxide Anion Gap BUN Creatinine Creat Clearance w eGFR Random Glucose Calcium Total Bilirubin AST ALT Alkaline Phosphatase Total Protein Albumin Stool Occult Blood KEELEY Screen KEELEY Homogeneous Pattern KEELEY Nucleolar Pattern KEELEY Speckled Pattern KEELEY Centromere Pattern Double Strand DNA Ab Blood Type Active Medications Generic Name Dose Route Start Last Admin Trade Name Julioq PRN Reason Stop Dose Admin Aspirin 81 mg 04/10/17 10:00 04/14/17 09:52 Asa - PO 81 mg DAILY [facility] Administration Collagenase 1 applic 04/10/17 10:00 04/14/17 09:53 Santyl - TP Not Given DAILY [facility] Docusate Sodium 100 mg 04/10/17 10:00 04/14/17 09:53 Colace - PO Not Given BID [facility] Gentamicin Sulfate 1 applic 04/13/17 22:00 04/14/17 09:53 Garamycin 0.1% Ointment - TP 1 applic BID [facility] Administration Heparin Sodium (Porcine) 5,000 unit 04/09/17 18:00 04/14/17 09:53 Heparin - SQ 5,000 unit Q8H-IV [facility] Administration Piperacillin Sod/Tazobactam 50 mls @ 100 mls/hr 04/10/17 10:35 04/14/17 09:51 Sod 3.375 gm/ Dextrose IVPB 100 mls/hr Q8H-IV [facility] Administration Azithromycin 250 mls @ 250 mls/hr 04/12/17 16:15 04/13/17 09:49 Zithromax 500mg Ivpb (Pre-Docked) IVPB 250 mls/hr DAILY [facility] Administration Levothyroxine Sodium 100 mcg/ 112.5 mcg 04/13/17 07:00 04/14/17 06:17 Levothyroxine Sodium 12.5 mcg PO Not Given DAILY@0700 [facility] Methylprednisolone Sodium Succinate 1,000 mg 04/14/17 10:00 04/14/17 09:56 Solu-Medrol - IVPB 04/16/17 10:01 1,000 mg DAILY [facility] Administration Morphine Sulfate 1 mg 04/11/17 10:49 04/11/17 17:46 Morphine Injection - IVPUSH 1 mg Q6H PRN Administration PAIN Ondansetron HCl 4 mg 04/10/17 08:46 04/11/17 05:37 Zofran Injection IVPB 4 mg Q6H PRN Administration NAUSEA Oxycodone HCl 5 mg 04/10/17 08:46 04/11/17 05:36 Roxicodone - PO 5 mg Q4H PRN Administration PAIN Pantoprazole Sodium 40 mg 04/14/17 11:00 Protonix - PO DAILY [facility] Polyethylene Glycol 17 gm 04/10/17 10:00 04/14/17 09:53 Miralax (For Daily Use) - PO Not Given DAILY [facility] Senna 1 tab 04/10/17 22:00 04/13/17 21:30 Senna - PO 1 tab HS [facility] Administration ASSESSMENT/PLAN: Patient is a 77 year old female with a past medical history of of non healing chronic RLE venous ulcer, borderline hypertension, polymyalgia, hypothyroidism, sent to ED by Dr. Silvestre for b/l lower extremity cellulitis. ID: Bilateral Lower Ext. 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 CBC 1 unit PRBC on standby Blood occult stool negative Pulmonary: Hemoptysis - now resolved A/P: CT chest ordered, pulm following CT chest pending read Renal: MYRTLE A/P: Renal/bladder ultrasound ordered Renal following [place] bumped up to 2.7 As per renal, pt may need kidney biopsy secondary to hematuria Endocrine: Hypothyroidism A/P: TSH elevated synthroid increased to 112.5mcg on 04/13 Rheumatology: Autoimmune Disease Ruleout A/P: Patient seen by change control specialist Rule out Lupus or other autoimmune disease On Solumedrol 1000mg daily Prophylaxis: DVT: Heparin 5000 SC q8 GI: Protonix F.E.N. Fluids: tolerating PO Electrolytes: monitor Nutrition: low sodium diet Disposition: Full code. Visit type - Emergency Visit Emergency Visit: Yes ED Registration Date: 04/09/17 Care time: The patient presented to the Emergency Department on the above date and was hospitalized for further evaluation of their emergent condition. - New Patient This patient is new to me today: No - Critical Care Critical Care patient: No - Discharge Referral Referred to [facility] Med P.C.: No
[2017-04-14 11:04] LABS: MAGNESIUM 2.6 mg/dL (1.8-2.4)
--- NOTE | 2017-04-14 11:07 | PN ---
Progress Note (short form) - Note Progress Note: RENAL awake and alert comfortable denies complaints Last Vital Signs Temp Pulse Resp BP Pulse Ox 97.7 F 52 L 20 128/50 97 04/14/17 05:59 04/14/17 05:59 04/14/17 05:59 04/14/17 05:59 04/13/17 22:00 lungs clear cvs s1s2 rr +BERNABE abd soft ext +edema neuro a+ox3 skin has dressings on legs Current Medications Generic Name Dose Route Start Last Admin Trade Name Freq PRN Reason Stop Dose Admin Aspirin 81 mg 04/10/17 10:00 04/14/17 09:52 Asa - PO 81 mg DAILY [facility] Administration Collagenase 1 applic 04/10/17 10:00 04/14/17 09:53 Santyl - TP Not Given DAILY [facility] Docusate Sodium 100 mg 04/10/17 10:00 04/14/17 09:53 Colace - PO Not Given BID [facility] Gentamicin Sulfate 1 applic 04/13/17 22:00 04/14/17 09:53 Garamycin 0.1% Ointment - TP 1 applic BID [facility] Administration Heparin Sodium (Porcine) 5,000 unit 04/09/17 18:00 04/14/17 09:53 Heparin - SQ 5,000 unit Q8H-IV [facility] Administration Piperacillin Sod/Tazobactam 50 mls @ 100 mls/hr 04/10/17 10:35 04/14/17 09:51 Sod 3.375 gm/ Dextrose IVPB 100 mls/hr Q8H-IV [facility] Administration Azithromycin 250 mls @ 250 mls/hr 04/12/17 16:15 04/13/17 09:49 Zithromax 500mg Ivpb (Pre-Docked) IVPB 250 mls/hr DAILY [facility] Administration Levothyroxine Sodium 100 mcg/ 112.5 mcg 04/13/17 07:00 04/14/17 06:17 Levothyroxine Sodium 12.5 mcg PO Not Given DAILY@0700 [facility] Methylprednisolone Sodium Succinate 1,000 mg 04/14/17 10:00 04/14/17 09:56 Solu-Medrol - IVPB 04/16/17 10:01 1,000 mg DAILY [facility] Administration Morphine Sulfate 1 mg 04/11/17 10:49 04/11/17 17:46 Morphine Injection - IVPUSH 1 mg Q6H PRN Administration PAIN Ondansetron HCl 4 mg 04/10/17 08:46 04/11/17 05:37 Zofran Injection IVPB 4 mg Q6H PRN Administration NAUSEA Oxycodone HCl 5 mg 04/10/17 08:46 04/11/17 05:36 Roxicodone - PO 5 mg Q4H PRN Administration PAIN Pantoprazole Sodium 40 mg 04/14/17 11:00 Protonix - PO DAILY [facility] Polyethylene Glycol 17 gm 04/10/17 10:00 04/14/17 09:53 Miralax (For Daily Use) - PO Not Given DAILY [facility] Senna 1 tab 04/10/17 22:00 04/13/17 21:30 Senna - PO 1 tab HS MIL[facility] Administration CBC, BMP 04/14/17 07:00 04/14/17 07:00 Impression 1. MYRTLE- slowly progressive 2. lower extremity ulcer 3. hypothyroid 4. HTN 5. polymyalgia 6. anemia 7. ckd, proteinuria and ultrasound suggested 8 hematuria 9 hemoptysis Plan - would schedule kidney biopsy given hemoptysis, hematuria and proteinuria - heme eval of anemia. Note also adenopathy which may be reactive MV
[2017-04-14] MEDS: PANTOPRAZOLE 40 MG TABLET (FP) PO SCH (12:17)
[2017-04-14] MEDS: AZITHROMYCIN IVPB 250 ML IVPB SCH (12:18)
--- NOTE | 2017-04-14 12:45 | PN ---
Progress Note (short form) - Note Progress Note: PULMONARY Feels better today, less short of breath. No further hemoptysis. Evaluated by rheumatology, started on pulse steroids. Last Vital Signs Temp Pulse Resp BP Pulse Ox 97.8 F 57 L 19 127/58 97 04/14/17 09:00 04/14/17 09:00 04/14/17 09:00 04/14/17 09:00 04/14/17 12:13 Intake & Output 04/11/17 04/12/17 04/13/17 04/14/17 23:59 23:59 23:59 23:59 Intake Total 2870 1470 635 60 Balance 2870 1470 635 60 Gen: tachypneic with speaking Heart: RRR Lung: scattered rales Abd: soft, nontender Ext: + edema CBC, BMP 04/14/17 07:00 04/14/17 07:00 Active Medications Aspirin (Asa -) 81 mg PO DAILY [facility] Last Admin: 04/14/17 09:52 Dose: 81 mg Collagenase (Santyl -) 1 applic TP DAILY [facility] Last Admin: 04/14/17 09:53 Dose: Not Given Docusate Sodium (Colace -) 100 mg PO BID [facility] Last Admin: 04/14/17 09:53 Dose: Not Given Gentamicin Sulfate (Garamycin 0.1% Ointment -) 1 applic TP BID [facility] Last Admin: 04/14/17 09:53 Dose: 1 applic Heparin Sodium (Porcine) (Heparin -) 5,000 unit SQ Q8H-IV [facility] Last Admin: 04/14/17 09:53 Dose: 5,000 unit Piperacillin Sod/Tazobactam (Sod 3.375 gm/ Dextrose) 50 mls @ 100 mls/hr IVPB Q8H-IV [facility] Last Admin: 04/14/17 09:51 Dose: 100 mls/hr Azithromycin (Zithromax 500mg Ivpb (Pre-Docked)) 250 mls @ 250 mls/hr IVPB DAILY [facility] Last Admin: 04/14/17 12:18 Dose: 250 mls/hr Levothyroxine Sodium 100 mcg/ (Levothyroxine Sodium 12.5 mcg) 112.5 mcg PO DAILY@0700 [facility] Last Admin: 04/14/17 06:17 Dose: Not Given Methylprednisolone Sodium Succinate (Solu-Medrol -) 1,000 mg IVPB DAILY [facility] Stop: 04/16/17 10:01 Last Admin: 04/14/17 09:56 Dose: 1,000 mg Morphine Sulfate (Morphine Injection -) 1 mg IVPUSH Q6H PRN PRN Reason: PAIN Last Admin: 04/11/17 17:46 Dose: 1 mg Ondansetron HCl (Zofran Injection) 4 mg IVPB Q6H PRN PRN Reason: NAUSEA Last Admin: 04/11/17 05:37 Dose: 4 mg Oxycodone HCl (Roxicodone -) 5 mg PO Q4H PRN PRN Reason: PAIN Last Admin: 04/11/17 05:36 Dose: 5 mg Pantoprazole Sodium (Protonix -) 40 mg PO DAILY [facility] Last Admin: 04/14/17 12:17 Dose: 40 mg Polyethylene Glycol (Miralax (For Daily Use) -) 17 gm PO DAILY [facility] Last Admin: 04/14/17 09:53 Dose: Not Given Senna (Senna -) 1 tab PO HS [facility] Last Admin: 04/13/17 21:30 Dose: 1 tab A/P 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
--- NOTE | 2017-04-14 16:28 | PN ---
Progress Note, Physician History of Present Illness: Afebrile on steroids No c/o chest pain/ dyspnea/ cough No further hemoptysis reported - Current Medication List Current Medications: Active Medications Aspirin (Asa -) 81 mg PO DAILY [facility] Last Admin: 04/14/17 09:52 Dose: 81 mg Collagenase (Santyl -) 1 applic TP DAILY [facility] Last Admin: 04/14/17 09:53 Dose: Not Given Docusate Sodium (Colace -) 100 mg PO BID [facility] Last Admin: 04/14/17 09:53 Dose: Not Given Gentamicin Sulfate (Garamycin 0.1% Ointment -) 1 applic TP BID [facility] Last Admin: 04/14/17 09:53 Dose: 1 applic Heparin Sodium (Porcine) (Heparin -) 5,000 unit SQ Q8H-IV [facility] Last Admin: 04/14/17 09:53 Dose: 5,000 unit Piperacillin Sod/Tazobactam (Sod 3.375 gm/ Dextrose) 50 mls @ 100 mls/hr IVPB Q8H-IV [facility] Last Admin: 04/14/17 09:51 Dose: 100 mls/hr Azithromycin (Zithromax 500mg Ivpb (Pre-Docked)) 250 mls @ 250 mls/hr IVPB DAILY [facility] Last Admin: 04/14/17 12:18 Dose: 250 mls/hr Levothyroxine Sodium 100 mcg/ (Levothyroxine Sodium 12.5 mcg) 112.5 mcg PO DAILY@0700 [facility] Last Admin: 04/14/17 06:17 Dose: Not Given Methylprednisolone Sodium Succinate (Solu-Medrol -) 1,000 mg IVPB DAILY [facility] Stop: 04/16/17 10:01 Last Admin: 04/14/17 09:56 Dose: 1,000 mg Morphine Sulfate (Morphine Injection -) 1 mg IVPUSH Q6H PRN PRN Reason: PAIN Last Admin: 04/11/17 17:46 Dose: 1 mg Ondansetron HCl (Zofran Injection) 4 mg IVPB Q6H PRN PRN Reason: NAUSEA Last Admin: 04/11/17 05:37 Dose: 4 mg Oxycodone HCl (Roxicodone -) 5 mg PO Q4H PRN PRN Reason: PAIN Last Admin: 04/11/17 05:36 Dose: 5 mg Pantoprazole Sodium (Protonix -) 40 mg PO DAILY [facility] Last Admin: 04/14/17 12:17 Dose: 40 mg Polyethylene Glycol (Miralax (For Daily Use) -) 17 gm PO DAILY [facility] Last Admin: 04/14/17 09:53 Dose: Not Given Senna (Senna -) 1 tab PO HS [facility] Last Admin: 04/13/17 21:30 Dose: 1 tab - Objective Vital Signs: Vital Signs Temperature 98.2 F 04/14/17 14:00 Pulse Rate 62 04/14/17 14:00 Respiratory Rate 18 04/14/17 14:00 Blood Pressure 144/69 04/14/17 14:00 O2 Sat by Pulse Oximetry (%) 97 04/14/17 12:13 Constitutional: Yes: No Distress Eyes: Yes: Conjunctiva Clear Cardiovascular: Yes: Regular Rate and Rhythm, S1, S2 Respiratory: Yes: CTA Bilaterally Gastrointestinal: Yes: Normal Bowel Sounds, Soft. No: Tenderness Extremities: Yes: Other (+ LE ulcer) Labs: CBC, BMP 04/14/17 07:00 04/14/17 07:00 INR, PTT INR 1.41 (0.82-1.09) H 04/09/17 14:23 Assessment/Plan LE cellulitis v. 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 Zithromax for atypical coverage Steroids May need lung bx
[2017-04-14] MEDS: SENNOSIDES 8.6MG TABLET (FP) PO SCH (21:35)
[2017-04-15] MEDS ORDERED: PIPERACILLIN/TAZOBACTAM 3.375 GM VIAL IVPB ONE (00:58)
[2017-04-15] MEDS ORDERED: DEXTROSE 5%-WATER - 50 ML IVPB ONE ×3 (00:58→17:34)
[2017-04-15] MEDS: HEPARIN NA (PORCINE) 5,000 UNITS/ML 1ML VIAL SQ SCH ×3 (02:01→18:09)
[2017-04-15] MEDS: PIPERACILLIN/TAZOB 3.375 GM 3.375 GM in DEXTROSE 5%-WATER - 50 ML IVPB SCH (02:01)
[2017-04-15] MEDS ORDERED: LEVOTHYROXINE NA 100 MCG TABLET (FP) ONE (06:18)
[2017-04-15] MEDS ORDERED: LEVOTHYROXINE NA 25 MCG TABLET (FP) ONE (06:19)
[2017-04-15] MEDS: LEVOTHYROXINE PO SCH (06:21)
[2017-04-15 07:12] LABS: BASOPHIL 0.1 % (0-2.0); MCH 28.1 pg (25.7-33.7); MCHC 33.1 g/dl (32.0-36.0); MEAN CELL VOLUME 84.8 fl (80-96); MEAN PLT VOLUME 7.7 fl (7.5-11.1); NEUTROPHILS 90.2 % (42.8-82.8); PLATELET COUNT 307 K/MM3 (134-434); RDW 14.6 % (11.6-15.6); WHITE BLOOD COUNT 10.5 K/mm3 (4.0-10.0)
--- NOTE | 2017-04-15 07:41 | PN ---
Physical Exam: SUBJECTIVE: Patient seen and examined, denies any shortness of breath or chest pain. OBJECTIVE: hmg/hct now 6.6/20, for 2 units of prbc, patient now in agreement heart rate dropped to the 30s overnight, patient was asleep when this occurred as per RN verbal report. Will order EKG now As per night nurse report, pt has multiple ulcers on her buttocks, RD to follow Vital Signs Period Temp Pulse Resp BP Sys/Horn Pulse Ox Last 24 Hr 97.0 F-98.2 F 50-62 18-19 112-144/56-69 94-97 GENERAL: The patient is awake, alert, and fully oriented, in no acute distress. HEAD: Normal with no signs of trauma. EYES: PERRL, extraocular movements intact, sclera anicteric, conjunctiva clear. No ptosis. ENT: Ears normal, nares patent, oropharynx clear without exudates, moist mucous membranes. NECK: Trachea midline, full range of motion, supple. LUNGS: Breath sounds equal, clear to auscultation bilaterally, no wheezes, shortness of breath at rest, requires 2 liters of supplemental oxygen HEART: Regular rate and rhythm, ABDOMEN: Soft, nontender, nondistended, normoactive bowel sounds, no guarding, no rebound, no hepatosplenomegaly, no masses. EXTREMITIES: 2+ pulses, warm, well-perfused, no edema. NEUROLOGICAL: Normal speech, gait not observed. PSYCH: Normal mood, normal affect. SKIN: RLE medial open wound clean, pink, no bleeding + pulse on right foot. LLE : dressing cdi, wound not viewed, faint pulse felt on left foot. Laboratory Results - last 24 hr 04/13/17 04/14/17 04/14/17 07:30 07:00 07:00 WBC 12.5 H RBC 2.64 L Hgb 7.3 L Hct 22.4 L MCV 84.8 MCH 27.6 MCHC 32.6 RDW 14.6 Plt Count 369 MPV 7.8 Neutrophils % 89.8 H Lymphocytes % 7.2 L D Monocytes % 2.8 L D Eosinophils % 0.0 D Basophils % 0.2 ESR Haptoglobin 431 H Sodium 139 Potassium 4.4 Chloride 106 Carbon Dioxide 25 Anion Gap 8 BUN 46 H D Creatinine 2.7 H D Creat Clearance w eGFR 17.13 Random Glucose 207 H D Calcium 8.2 L Magnesium 2.6 H Total Bilirubin 0.3 D AST 10 L D ALT 18 Alkaline Phosphatase 77 D Total Protein 5.9 L Albumin 2.1 L 04/14/17 04/14/17 04/15/17 07:00 07:00 06:30 WBC 10.5 H RBC 2.36 L Hgb 6.6 L* Hct 20.0 L MCV 84.8 MCH 28.1 MCHC 33.1 RDW 14.6 Plt Count 307 MPV 7.7 Neutrophils % 90.2 H Lymphocytes % 6.5 L Monocytes % 3.2 L Eosinophils % 0.0 Basophils % 0.1 ESR 105 H Haptoglobin Sodium Potassium Chloride Carbon Dioxide Anion Gap BUN Creatinine Creat Clearance w eGFR Random Glucose Calcium Magnesium Cancelled Total Bilirubin AST ALT Alkaline Phosphatase Total Protein Albumin Active Medications Generic Name Dose Route Start Last Admin Trade Name Freq PRN Reason Stop Dose Admin Amino Acids 30 ml 04/15/17 08:00 Prosource No Carb Liquid Pkt PO BID@0800,1730 [facility] Aspirin 81 mg 04/10/17 10:00 04/14/17 09:52 Asa - PO 81 mg DAILY [facility] Administration Collagenase 1 applic 04/10/17 10:00 04/14/17 09:53 Santyl - TP Not Given DAILY [facility] Docusate Sodium 100 mg 04/10/17 10:00 04/14/17 21:35 Colace - PO Not Given BID [facility] Gentamicin Sulfate 1 applic 04/13/17 22:00 04/14/17 21:38 Garamycin 0.1% Ointment - TP 1 applic BID [facility] Administration Heparin Sodium (Porcine) 5,000 unit 04/09/17 18:00 04/15/17 02:01 Heparin - SQ 5,000 unit Q8H-IV [facility] Administration Piperacillin Sod/Tazobactam 50 mls @ 100 mls/hr 04/10/17 10:35 04/15/17 02:01 Sod 3.375 gm/ Dextrose IVPB 100 mls/hr Q8H-IV [facility] Administration Azithromycin 250 mls @ 250 mls/hr 04/12/17 16:15 04/14/17 12:18 Zithromax 500mg Ivpb (Pre-Docked) IVPB 250 mls/hr DAILY [facility] Administration Levothyroxine Sodium 100 mcg/ 112.5 mcg 04/13/17 07:00 04/15/17 06:21 Levothyroxine Sodium 12.5 mcg PO 112.5 mcg DAILY@0700 [facility] Administration Methylprednisolone Sodium Succinate 1,000 mg 04/14/17 10:00 04/14/17 09:56 Solu-Medrol - IVPB 04/16/17 10:01 1,000 mg DAILY [facility] Administration Morphine Sulfate 1 mg 04/11/17 10:49 04/11/17 17:46 Morphine Injection - IVPUSH 1 mg Q6H PRN Administration PAIN Ondansetron HCl 4 mg 04/10/17 08:46 04/11/17 05:37 Zofran Injection IVPB 4 mg Q6H PRN Administration NAUSEA Oxycodone HCl 5 mg 04/10/17 08:46 04/11/17 05:36 Roxicodone - PO 5 mg Q4H PRN Administration PAIN Pantoprazole Sodium 40 mg 04/14/17 11:45 04/14/17 12:17 Protonix - PO 40 mg DAILY [facility] Administration Polyethylene Glycol 17 gm 04/10/17 10:00 04/14/17 09:53 Miralax (For Daily Use) - PO Not Given DAILY [facility] Senna 1 tab 04/10/17 22:00 04/14/17 21:35 Senna - PO Not Given HS [facility] ASSESSMENT/PLAN: Patient is a 77 year old female with a past medical history of of non healing chronic RLE venous ulcer, borderline hypertension, polymyalgia, hypothyroidism, sent to ED by Dr. Silvestre for b/l lower extremity cellulitis. ID: Bilateral Lower Ext. Cellulitis - acute on chronic A/P: Hx of chronic LE ulcers secondary to venous stasis Sherin of MRSA, VRE, on contact precautions On Zoysn for LE cellulitis, ID following Vascular following Wound dressing with Santyl Hematology: A/P: Symptomatic anemia Having shortness of breath with minimal exertion Blood/Iron studies with anemia of chronic disease Will be transfused with 2 units of prbc Blood occult stool negative Cardiology: Elevated trops/Bradycardia between 30s/40s overnight A/P: Trops minimally elevated Cardiology notes reviewed, unlikely ACS Bradycardia this morning, continue to monitor on tele Pulmonary: Hemoptysis - now resolved A/P: pulm following Monitor for any further hemoptysis Renal: MYRTLE A/P: Bun/Creat now 2.9 As per renal, pt may need kidney biopsy Renal following Endocrine: Hypothyroidism A/P: TSH elevated synthroid increased to 112.5mcg on 04/13 Rheumatology: Autoimmune Disease Ruleout A/P: Patient seen by economic development specialist Rule out Lupus or other autoimmune disease On Solumedrol 1000mg daily, Protonix ordered Prophylaxis: DVT: Heparin 5000 SC q8 GI: Protonix F.E.N. Fluids: tolerating PO Electrolytes: monitor Nutrition: low sodium diet Disposition: Full code. Visit type - Emergency Visit Emergency Visit: Yes ED Registration Date: 04/09/17 Care time: The patient presented to the Emergency Department on the above date and was hospitalized for further evaluation of their emergent condition. - New Patient This patient is new to me today: No - Critical Care Critical Care patient: No - Discharge Referral Referred to [facility] Med P.C.: No
[2017-04-15] MEDS ORDERED: AMINO ACIDS/PROTEIN HYDROLYS 30 ML LIQUID.PKT PO SCH (08:00)
[2017-04-15 08:08] LABS: ALBUMIN 2.2 g/dl (3.4-5.0); ALK PHOS 74 U/L (45-117); ANION GAP 12 (8-16); BILIRUBIN,TOTAL 0.3 mg/dL (0.2-1.0); CALCIUM 7.8 mg/dL (8.5-10.1); CO2 23 mmol/L (21-32); CREATININE 2.9 mg/dL (0.55-1.02); GLUCOSE,RANDOM 288 mg/dL (74-106); MAGNESIUM 2.4 mg/dL (1.8-2.4); SGOT/AST 9 U/L (15-37); SGPT/ALT 16 U/L (12-78); TOT PROT 5.6 g/dl (6.4-8.2)
--- NOTE | 2017-04-15 09:26 | PN ---
Progress Note (short form) - Note Progress Note: oob in chair no hemoptysis continues to have leg pain now on pulse dose steroids- started yesterday denies SOB reports PPD negative in the past Vital Signs Period Temp Pulse Resp BP Sys/Horn Pulse Ox Last 24 Hr 97.0 F-98.2 F 50-62 18-18 112-144/56-69 94-97 cor-rrr lungs decreased bs at bases abd soft,nt ext + erythema of left foot , open superficial erosions, still very tender to touch-+serous drainage right ankle ulcer unchanged CBC, BMP 04/15/17 06:30 04/15/17 06:30 Laboratory Tests 04/11/17 04/11/17 04/14/17 07:00 16:30 07:00 ESR 105 H C-Reactive Protein 10.0 H KEELEY Homogeneous Pattern 1:320 H cxray bilateral infiltrates Current Medications Amino Acids (Prosource No Carb Liquid Pkt) 30 ml PO BID@0800,1730 [facility] Last Admin: 04/15/17 09:06 Dose: 30 ml Aspirin (Asa -) 81 mg PO DAILY [facility] Last Admin: 04/14/17 09:52 Dose: 81 mg Collagenase (Santyl -) 1 applic TP DAILY [facility] Last Admin: 04/14/17 09:53 Dose: Not Given Docusate Sodium (Colace -) 100 mg PO BID [facility] Last Admin: 04/14/17 21:35 Dose: Not Given Gentamicin Sulfate (Garamycin 0.1% Ointment -) 1 applic TP BID [facility] Last Admin: 04/14/17 21:38 Dose: 1 applic Heparin Sodium (Porcine) (Heparin -) 5,000 unit SQ Q8H-IV [facility] Last Admin: 04/15/17 02:01 Dose: 5,000 unit Piperacillin Sod/Tazobactam (Sod 3.375 gm/ Dextrose) 50 mls @ 100 mls/hr IVPB Q8H-IV [facility] Last Admin: 04/15/17 02:01 Dose: 100 mls/hr Azithromycin (Zithromax 500mg Ivpb (Pre-Docked)) 250 mls @ 250 mls/hr IVPB DAILY [facility] Last Admin: 04/14/17 12:18 Dose: 250 mls/hr Levothyroxine Sodium 100 mcg/ (Levothyroxine Sodium 12.5 mcg) 112.5 mcg PO DAILY@0700 [facility] Last Admin: 04/15/17 06:21 Dose: 112.5 mcg Methylprednisolone Sodium Succinate (Solu-Medrol -) 1,000 mg IVPB DAILY [facility] Stop: 04/16/17 10:01 Last Admin: 04/14/17 09:56 Dose: 1,000 mg Morphine Sulfate (Morphine Injection -) 1 mg IVPUSH Q6H PRN PRN Reason: PAIN Last Admin: 04/11/17 17:46 Dose: 1 mg Ondansetron HCl (Zofran Injection) 4 mg IVPB Q6H PRN PRN Reason: NAUSEA Last Admin: 04/11/17 05:37 Dose: 4 mg Oxycodone HCl (Roxicodone -) 5 mg PO Q4H PRN PRN Reason: PAIN Last Admin: 04/11/17 05:36 Dose: 5 mg Pantoprazole Sodium (Protonix -) 40 mg PO DAILY [facility] Last Admin: 04/14/17 12:17 Dose: 40 mg Polyethylene Glycol (Miralax (For Daily Use) -) 17 gm PO DAILY [facility] Last Admin: 04/14/17 09:53 Dose: Not Given Senna (Senna -) 1 tab PO HS [facility] Last Admin: 04/14/17 21:35 Dose: Not Given 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- vasculitis workup in progress, followed by pulmonary/rheum/renal suspect foot ulcers are vasculitis as well but still some erythema and drainage noted send legionella urinary antigen send sputum culture for renal biopsy adjust zosyn dosing for worsening renal function wound culture with MRSA, will redose vancomycin d/w rheumatology history of MRSA/pseudomonas-contact isolation anemia-for transfuson today Problem List - Problems (1) Cellulitis Code(s): L03.90 - CELLULITIS, UNSPECIFIED Qualifiers: Site of cellulitis: extremity Site of cellulitis of extremity: lower extremity Laterality: unspecified laterality Qualified Code(s): L03.119 - Cellulitis of unspecified part of limb (2) Acute kidney injury Code(s): N17.9 - ACUTE KIDNEY FAILURE, UNSPECIFIED
[2017-04-15] MEDS: PANTOPRAZOLE 40 MG TABLET (FP) PO SCH (09:58)
[2017-04-15] MEDS: ASPIRIN 81 MG CHEWABLE TABLETS PO SCH (09:58)
[2017-04-15] MEDS: DOCUSATE SODIUM 100 MG CAPSULE (FP) PO SCH ×2 (09:58→22:11)
[2017-04-15] MEDS: GENTAMICIN SO4 0.1% TOPICAL OINTMENT 15 GM/TUBE TUBE TP SCH ×2 (09:58→22:09)
[2017-04-15] MEDS: POLYETHYLENE GLYCOL 3350 119 GM BTL PO SCH (09:59)
[2017-04-15] MEDS: COLLAGENASE CLOSTRIDIUM HIST. 30 GRAMS TUBE TP SCH (09:59)
[2017-04-15] MEDS ORDERED: PIPERACILLIN/TAZOBACTAM 2.25 GM VIAL IVPB ONE ×2 (10:30→17:34)
[2017-04-15] MEDS: PIPERACILLIN/TAZOB 2.25 GM 2.25 GM in DEXTROSE 5%-WATER - 50 ML IVPB SCH ×2 (10:42→18:09)
[2017-04-15] MEDS: methylPREDNISolone NA SUCC 40 MG/1 ML VIAL IVPB SCH (10:43)
[2017-04-15] MEDS ORDERED: VANCOMYCIN 1 GRAM (PRE-DOCKED) 1,000 MG/250 ML BAG IVPB ONE (10:57)
[2017-04-15 11:26] LABS: URINE APPEARANCE CLOUDY; URINE BILIRUBIN NEGATIVE (NEGATIVE); URINE BLOOD 3+ (NEGATIVE); URINE COLOR YELLOW; URINE GLUCOSE (UA) 2+ (NEGATIVE); URINE KETONE NEGATIVE (NEGATIVE); URINE NITRITE NEGATIVE (NEGATIVE); URINE UROBILINOGEN NEGATIVE mg/dL (0.2-1.0)
[2017-04-15 11:30] LABS: URINE LEUK ESTERASE 1+ (NEGATIVE); URINE PROTEIN 2+ (NEGATIVE)
[2017-04-15] MEDS ORDERED: VANCOMYCIN 1,000 MG in DEXTROSE 5%-WATER - 250 ML IVPB ONE (12:00)
--- NOTE | 2017-04-15 12:14 | PN ---
Progress Note, Physician History of Present Illness: pulmonary alert,feeling better,-resp distress,-hemoptysis. pt started on pulse steroids by rheumatology. - Current Medication List Current Medications: Active Medications Amino Acids (Prosource No Carb Liquid Pkt) 30 ml PO BID@0800,1730 [facility] Last Admin: 04/15/17 09:06 Dose: 30 ml Aspirin (Asa -) 81 mg PO DAILY [facility] Last Admin: 04/15/17 09:58 Dose: 81 mg Collagenase (Santyl -) 1 applic TP DAILY [facility] Last Admin: 04/15/17 09:59 Dose: 1 applic Docusate Sodium (Colace -) 100 mg PO BID [facility] Last Admin: 04/15/17 09:58 Dose: Not Given Gentamicin Sulfate (Garamycin 0.1% Ointment -) 1 applic TP BID [facility] Last Admin: 04/15/17 09:58 Dose: 1 applic Heparin Sodium (Porcine) (Heparin -) 5,000 unit SQ Q8H-IV [facility] Last Admin: 04/15/17 09:58 Dose: 5,000 unit Azithromycin (Zithromax 500mg Ivpb (Pre-Docked)) 250 mls @ 250 mls/hr IVPB DAILY [facility] Last Admin: 04/14/17 12:18 Dose: 250 mls/hr Piperacillin Sod/Tazobactam (Sod 2.25 gm/ Dextrose) 50 mls @ 100 mls/hr IVPB Q8H-IV [facility] PRN Reason: Protocol Last Admin: 04/15/17 10:42 Dose: 100 mls/hr Vancomycin HCl 1,000 mg/ (Dextrose) 250 mls @ 166.667 mls/hr IVPB ONCE ONE Stop: 04/15/17 13:29 Levothyroxine Sodium 100 mcg/ (Levothyroxine Sodium 12.5 mcg) 112.5 mcg PO DAILY@0700 [facility] Last Admin: 04/15/17 06:21 Dose: 112.5 mcg Methylprednisolone Sodium Succinate (Solu-Medrol -) 1,000 mg IVPB DAILY [facility] Stop: 04/16/17 10:01 Last Admin: 04/15/17 10:43 Dose: 1,000 mg Morphine Sulfate (Morphine Injection -) 1 mg IVPUSH Q6H PRN PRN Reason: PAIN Last Admin: 04/11/17 17:46 Dose: 1 mg Ondansetron HCl (Zofran Injection) 4 mg IVPB Q6H PRN PRN Reason: NAUSEA Last Admin: 04/11/17 05:37 Dose: 4 mg Oxycodone HCl (Roxicodone -) 5 mg PO Q4H PRN PRN Reason: PAIN Last Admin: 04/11/17 05:36 Dose: 5 mg Pantoprazole Sodium (Protonix -) 40 mg PO DAILY [facility] Last Admin: 04/15/17 09:58 Dose: 40 mg Polyethylene Glycol (Miralax (For Daily Use) -) 17 gm PO DAILY [facility] Last Admin: 04/15/17 09:59 Dose: Not Given Senna (Senna -) 1 tab PO HS [facility] Last Admin: 04/14/17 21:35 Dose: Not Given - Objective Vital Signs: Vital Signs Temperature 97.7 F 04/15/17 06:00 Pulse Rate 50 L 04/15/17 06:00 Respiratory Rate 18 04/15/17 06:00 Blood Pressure 112/56 04/15/17 06:00 O2 Sat by Pulse Oximetry (%) 94 L 04/14/17 21:00 Constitutional: Yes: Well Nourished, Calm Eyes: Yes: WNL HENT: Yes: WNL Neck: Yes: WNL Cardiovascular: Yes: Regular Rate and Rhythm, S1, S2 Respiratory: Yes: Rales (bibasilar crackles) Gastrointestinal: Yes: Normal Bowel Sounds, Soft Extremities: Yes: WNL Edema: Yes Labs: CBC, BMP 04/15/17 06:30 04/15/17 06:30 INR, PTT INR 1.41 (0.82-1.09) H 04/09/17 14:23 Problem List - Problems (1) Acute kidney injury Code(s): N17.9 - ACUTE KIDNEY FAILURE, UNSPECIFIED (2) Cellulitis Code(s): L03.90 - CELLULITIS, UNSPECIFIED Qualifiers: Site of cellulitis: extremity Site of cellulitis of extremity: lower extremity Laterality: unspecified laterality Qualified Code(s): L03.119 - Cellulitis of unspecified part of limb (3) Venous stasis of both lower extremities Code(s): I87.8 - OTHER SPECIFIED DISORDERS OF VEINS (4) Hemoptysis Code(s): R04.2 - HEMOPTYSIS (5) Acute hypoxemic respiratory failure Code(s): J96.01 - ACUTE RESPIRATORY FAILURE WITH HYPOXIA (6) Bilateral pulmonary infiltrates on chest x-ray Code(s): R91.8 - OTHER NONSPECIFIC ABNORMAL FINDING OF LUNG FIELD (7) Vasculitis Code(s): I77.6 - ARTERITIS, UNSPECIFIED Assessment/Plan IMP ACUTE HYPOXEMIC RESPIRATORY FAILURE EXTENSIVE BILATERAL INFILTRATES LIKELY VASCULITIS (HEMOPTYSIS,RENAL INSUFFIENCY) PULMONARY RENAL SYNDROME,AUTOIMMUNE HEMOPTYSIS SECONDARY TO ABOVE HTN ANEMIA CHRONIC VENOUS STASIS HYPOTHYROIDISM PLAN IV ANTIBIOTICS IV STEROIDS O2 QUANTIFY HEMOPTYSIS F/U CHEST X-RAYS FLEX BRONCH IF NO IMPROVEMENT TRANFUSE RENAL BX DR CORBIN Problem List - Problems (1) Acute kidney injury Code(s): N17.9 - ACUTE KIDNEY FAILURE, UNSPECIFIED (2) Cellulitis Code(s): L03.90 - CELLULITIS, UNSPECIFIED Qualifiers: Site of cellulitis: extremity Site of cellulitis of extremity: lower extremity Laterality: unspecified laterality Qualified Code(s): L03.119 - Cellulitis of unspecified part of limb (3) Venous stasis of both lower extremities Code(s): I87.8 - OTHER SPECIFIED DISORDERS OF VEINS (4) Hemoptysis Code(s): R04.2 - HEMOPTYSIS (5) Acute hypoxemic respiratory failure Code(s): J96.01 - ACUTE RESPIRATORY FAILURE WITH HYPOXIA (6) Bilateral pulmonary infiltrates on chest x-ray Code(s): R91.8 - OTHER NONSPECIFIC ABNORMAL FINDING OF LUNG FIELD (7) Vasculitis Code(s): I77.6 - ARTERITIS, UNSPECIFIED
--- NOTE | 2017-04-15 13:47 | PN ---
Progress Note, Physician History of Present Illness: Pt seen and examined at bedside. She had hemoptysis over the weekend. She denies chest pain. She feels her breathing is improved. She denies dysuria or hematuria. - Current Medication List Current Medications: Active Medications Amino Acids (Prosource No Carb Liquid Pkt) 30 ml PO BID@0800,1730 [facility] Last Admin: 04/15/17 09:06 Dose: 30 ml Aspirin (Asa -) 81 mg PO DAILY [facility] Last Admin: 04/15/17 09:58 Dose: 81 mg Collagenase (Santyl -) 1 applic TP DAILY [facility] Last Admin: 04/15/17 09:59 Dose: 1 applic Docusate Sodium (Colace -) 100 mg PO BID [facility] Last Admin: 04/15/17 09:58 Dose: Not Given Gentamicin Sulfate (Garamycin 0.1% Ointment -) 1 applic TP BID [facility] Last Admin: 04/15/17 09:58 Dose: 1 applic Heparin Sodium (Porcine) (Heparin -) 5,000 unit SQ Q8H-IV [facility] Last Admin: 04/15/17 09:58 Dose: 5,000 unit Azithromycin (Zithromax 500mg Ivpb (Pre-Docked)) 250 mls @ 250 mls/hr IVPB DAILY [facility] Last Admin: 04/14/17 12:18 Dose: 250 mls/hr Piperacillin Sod/Tazobactam (Sod 2.25 gm/ Dextrose) 50 mls @ 100 mls/hr IVPB Q8H-IV [facility] PRN Reason: Protocol Last Admin: 04/15/17 10:42 Dose: 100 mls/hr Levothyroxine Sodium 100 mcg/ (Levothyroxine Sodium 12.5 mcg) 112.5 mcg PO DAILY@0700 [facility] Last Admin: 04/15/17 06:21 Dose: 112.5 mcg Methylprednisolone Sodium Succinate (Solu-Medrol -) 1,000 mg IVPB DAILY [facility] Stop: 04/16/17 10:01 Last Admin: 04/15/17 10:43 Dose: 1,000 mg Morphine Sulfate (Morphine Injection -) 1 mg IVPUSH Q6H PRN PRN Reason: PAIN Last Admin: 04/11/17 17:46 Dose: 1 mg Ondansetron HCl (Zofran Injection) 4 mg IVPB Q6H PRN PRN Reason: NAUSEA Last Admin: 04/11/17 05:37 Dose: 4 mg Oxycodone HCl (Roxicodone -) 5 mg PO Q4H PRN PRN Reason: PAIN Last Admin: 04/11/17 05:36 Dose: 5 mg Pantoprazole Sodium (Protonix -) 40 mg PO DAILY [facility] Last Admin: 04/15/17 09:58 Dose: 40 mg Polyethylene Glycol (Miralax (For Daily Use) -) 17 gm PO DAILY [facility] Last Admin: 04/15/17 09:59 Dose: Not Given Senna (Senna -) 1 tab PO HS [facility] Last Admin: 04/14/17 21:35 Dose: Not Given - Objective Vital Signs: Vital Signs Temperature 98.1 F 04/15/17 10:00 Pulse Rate 60 04/15/17 10:00 Respiratory Rate 19 04/15/17 10:00 Blood Pressure 102/42 04/15/17 10:00 O2 Sat by Pulse Oximetry (%) 96 04/15/17 13:05 Constitutional: Yes: Calm Eyes: Yes: Conjunctiva Clear Cardiovascular: Yes: S1, S2 Respiratory: Yes: On Nasal O2 Gastrointestinal: Yes: Soft Genitourinary: Yes: WNL Musculoskeletal: Yes: WNL Edema: Yes Edema: LLE: Trace, RLE: Trace Neurological: Yes: Oriented Psychiatric: Yes: Oriented Labs: CBC, BMP 04/15/17 06:30 04/15/17 06:30 INR, PTT INR 1.41 (0.82-1.09) H 04/09/17 14:23 - ....Imaging Cat Scan: Report Reviewed Problem List - Problems (1) Acute kidney injury Code(s): N17.9 - ACUTE KIDNEY FAILURE, UNSPECIFIED (2) Cellulitis Code(s): L03.90 - CELLULITIS, UNSPECIFIED Qualifiers: Site of cellulitis: extremity Site of cellulitis of extremity: lower extremity Laterality: unspecified laterality Qualified Code(s): L03.119 - Cellulitis of unspecified part of limb (3) Hypothyroid Code(s): E03.9 - HYPOTHYROIDISM, UNSPECIFIED (4) Venous stasis of both lower extremities Code(s): I87.8 - OTHER SPECIFIED DISORDERS OF VEINS Assessment/Plan Current Medications Generic Name Dose Route Start Last Admin Trade Name Freq PRN Reason Stop Dose Admin Amino Acids 30 ml 04/15/17 08:00 04/15/17 09:06 Prosource No Carb Liquid Pkt PO 30 ml BID@0800,1730 [facility] Administration Aspirin 81 mg 04/10/17 10:00 04/15/17 09:58 Asa - PO 81 mg DAILY [facility] Administration Collagenase 1 applic 04/10/17 10:00 04/15/17 09:59 Santyl - TP 1 applic DAILY [facility] Administration Docusate Sodium 100 mg 04/10/17 10:00 04/15/17 09:58 Colace - PO Not Given BID [facility] Gentamicin Sulfate 1 applic 04/13/17 22:00 04/15/17 09:58 Garamycin 0.1% Ointment - TP 1 applic BID [facility] Administration Heparin Sodium (Porcine) 5,000 unit 04/09/17 18:00 04/15/17 09:58 Heparin - SQ 5,000 unit Q8H-IV [facility] Administration Azithromycin 250 mls @ 250 mls/hr 04/12/17 16:15 04/14/17 12:18 Zithromax 500mg Ivpb (Pre-Docked) IVPB 250 mls/hr DAILY [facility] Administration Piperacillin Sod/Tazobactam 50 mls @ 100 mls/hr 04/15/17 10:15 04/15/17 10:42 Sod 2.25 gm/ Dextrose IVPB 100 mls/hr Q8H-IV [facility] Administration Protocol Levothyroxine Sodium 100 mcg/ 112.5 mcg 04/13/17 07:00 04/15/17 06:21 Levothyroxine Sodium 12.5 mcg PO 112.5 mcg DAILY@0700 [facility] Administration Methylprednisolone Sodium Succinate 1,000 mg 04/14/17 10:00 04/15/17 10:43 Solu-Medrol - IVPB 04/16/17 10:01 1,000 mg DAILY [facility] Administration Morphine Sulfate 1 mg 04/11/17 10:49 04/11/17 17:46 Morphine Injection - IVPUSH 1 mg Q6H PRN Administration PAIN Ondansetron HCl 4 mg 04/10/17 08:46 04/11/17 05:37 Zofran Injection IVPB 4 mg Q6H PRN Administration NAUSEA Oxycodone HCl 5 mg 04/10/17 08:46 04/11/17 05:36 Roxicodone - PO 5 mg Q4H PRN Administration PAIN Pantoprazole Sodium 40 mg 04/14/17 11:45 04/15/17 09:58 Protonix - PO 40 mg DAILY [facility] Administration Polyethylene Glycol 17 gm 04/10/17 10:00 04/15/17 09:59 Miralax (For Daily Use) - PO Not Given DAILY [facility] Senna 1 tab 04/10/17 22:00 04/14/17 21:35 Senna - PO Not Given HS [facility] Laboratory Tests 04/11/17 04/13/17 04/14/17 16:30 11:30 07:00 Hgb Urine Protein Urine Glucose (UA) Urine Ketones Stool Occult Blood Negative JAROD Screen Positive H c-ANCA Pending Proteinase 3 (PR3) Pending p-ANCA Pending Atypical p-ANCA Pending Myeloperoxidase Ab Pending Double Strand DNA Ab <1 Glomerular Base Memb Ab Pending Tot Complement (CH50) 04/14/17 04/15/17 04/15/17 07:00 06:30 10:00 Hgb 6.6 L* Urine Protein 2+ H Urine Glucose (UA) 2+ H Urine Ketones Negative Stool Occult Blood JAROD Screen c-ANCA Proteinase 3 (PR3) p-ANCA Atypical p-ANCA Myeloperoxidase Ab Double Strand DNA Ab Glomerular Base Memb Ab Tot Complement (CH50) Pending Impression 1. 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 lower extremity ulcer 3. hypothyroid 4. HTN 5. polymyalgia 6. anemia Plan - renal function is worsening - renal workup in progress - discussed kidney biopsy with pt and she agrees - pt is on aspirin and it will have to be held prior to biopsy, called IR and informed them - discussed case with rheumatology and pulmonary - called cardiology for follow up and they agree that aspirin can be held - pt asked for me to speak to her daughter in law audrey hernandez [phone], called and left message - renal function is worsening, pt has a positive jarod and hemopysis. Vasculitis is in the differntial - cont steroids Dr Hamilton
--- NOTE | 2017-04-15 14:28 | PN ---
Progress Note, Physician History of Present Illness: 87-year-old black female sent in by Dr. Silvestre for evaluation of nonhealing chronic lower extremity wounds now suggestive of cellulitis. Patient states was seen earlier this week and then again today for redness and swelling of the thumb, bilateral lower extremity wounds and swelling, now with a draining wound to the side of left ankle. Patient denies fever, chills but does state pain and redness to the area. Patient states had an ultrasound a few days ago which was negative for DVT. Patient does have history of MRSA. Patient also states history of chronic venous stasis. - Current Medication List Current Medications: Active Medications Amino Acids (Prosource No Carb Liquid Pkt) 30 ml PO BID@0800,1730 [facility] Last Admin: 04/15/17 09:06 Dose: 30 ml Collagenase (Santyl -) 1 applic TP DAILY [facility] Last Admin: 04/15/17 09:59 Dose: 1 applic Docusate Sodium (Colace -) 100 mg PO BID [facility] Last Admin: 04/15/17 09:58 Dose: Not Given Gentamicin Sulfate (Garamycin 0.1% Ointment -) 1 applic TP BID [facility] Last Admin: 04/15/17 09:58 Dose: 1 applic Heparin Sodium (Porcine) (Heparin -) 5,000 unit SQ Q8H-IV [facility] Last Admin: 04/15/17 09:58 Dose: 5,000 unit Azithromycin (Zithromax 500mg Ivpb (Pre-Docked)) 250 mls @ 250 mls/hr IVPB DAILY [facility] Last Admin: 04/14/17 12:18 Dose: 250 mls/hr Piperacillin Sod/Tazobactam (Sod 2.25 gm/ Dextrose) 50 mls @ 100 mls/hr IVPB Q8H-IV [facility] PRN Reason: Protocol Last Admin: 04/15/17 10:42 Dose: 100 mls/hr Levothyroxine Sodium 100 mcg/ (Levothyroxine Sodium 12.5 mcg) 112.5 mcg PO DAILY@0700 [facility] Last Admin: 04/15/17 06:21 Dose: 112.5 mcg Methylprednisolone Sodium Succinate (Solu-Medrol -) 1,000 mg IVPB DAILY [facility] Stop: 04/16/17 10:01 Last Admin: 04/15/17 10:43 Dose: 1,000 mg Morphine Sulfate (Morphine Injection -) 1 mg IVPUSH Q6H PRN PRN Reason: PAIN Last Admin: 04/11/17 17:46 Dose: 1 mg Ondansetron HCl (Zofran Injection) 4 mg IVPB Q6H PRN PRN Reason: NAUSEA Last Admin: 04/11/17 05:37 Dose: 4 mg Oxycodone HCl (Roxicodone -) 5 mg PO Q4H PRN PRN Reason: PAIN Last Admin: 04/11/17 05:36 Dose: 5 mg Pantoprazole Sodium (Protonix -) 40 mg PO DAILY [facility] Last Admin: 04/15/17 09:58 Dose: 40 mg Polyethylene Glycol (Miralax (For Daily Use) -) 17 gm PO DAILY [facility] Last Admin: 04/15/17 09:59 Dose: Not Given Senna (Senna -) 1 tab PO HS [facility] Last Admin: 04/14/17 21:35 Dose: Not Given - Objective Vital Signs: Vital Signs Temperature 98.1 F 04/15/17 10:00 Pulse Rate 60 04/15/17 10:00 Respiratory Rate 19 04/15/17 10:00 Blood Pressure 102/42 04/15/17 10:00 O2 Sat by Pulse Oximetry (%) 96 04/15/17 13:05 Constitutional: Yes: Well Nourished Eyes: Yes: WNL, Conjunctiva Clear, EOM Intact HENT: Yes: WNL, Atraumatic, Normocephalic Neck: Yes: WNL, Supple, Trachea Midline Cardiovascular: Yes: WNL, Regular Rate and Rhythm Respiratory: Yes: WNL, Regular, CTA Bilaterally Gastrointestinal: Yes: WNL, Normal Bowel Sounds Genitourinary: Yes: WNL Musculoskeletal: Yes: WNL Extremities: Yes: Erythema Edema: No Integumentary: Yes: WNL Neurological: Yes: WNL, Alert, Oriented ...Motor Strength: WNL Psychiatric: Yes: WNL Labs: CBC, BMP 04/15/17 06:30 04/15/17 06:30 INR, PTT INR 1.41 (0.82-1.09) H 04/09/17 14:23 Assessment/Plan 87 year old woman a/w nonhealing LE ulcer, cellulitis, possible PNA, mildly elevated troponin, MYRTLE. NSVT-6 beats this am -f/up electrolytes this am and replete as needed -cont tele monitoring for now Elevated troponin-minimally elevated with normal CK -unlikely ACS -trop trended down -no chest pain or sig ekg changes -no events on tele -ECHO: normal LVEF; moderate bilateral atrial enlargement -plan as per Dr. Alvarez note is for stress MIBI when stable Diastolic CHF-chronic -overall euvolemic -hold off on diuresis for now Sepsis/Cellulitis/PNA -receiving Abx and steroids Non-healing wound -Vascular following bradycardia last night - will monitor on telemetry patient needs renal bx - to r/o pulmonary renal sx will hold asa since suspicion of acs is low anemia consider transfusion up to hct 30
[2017-04-15] MEDS: AZITHROMYCIN IVPB 250 ML IVPB SCH (14:34)
--- NOTE | 2017-04-15 19:13 | PN ---
Progress Note (short form) - Note Progress Note: The patient continues having significant pain in both legs. She denies joint pain or significant shortness of breath. Recently no hemoptysis. P/E No fever. Lungs: few coarse crackles in bases. S1 and S2 normal, no gallop, no murmur,. No active joints. Ulcers in both legs progressing. Laboratory: ESR 105. Progressive anemia (on 04/12 H/H: 7.2 / 21 and today 6.6 / 20). Creatinine increased to 2.9. Urinalysis Protein 2+, glucose 2+ and blood 3+ (microscopic pending). KEELEY 1:320 with homogeneous and nuclear patterns. Impression. Poor response to the 1st Solumedrol 1 gr Iv bolus. Renal disease and ulcers continue to progress. As the patient was on Aspirin she cannot have kidney biopsy tomorrow. KEELEY positive and anti-DNAds negative. Lupus is a possibility. Goodpasture and other vasculitis also strong possibility, For diagnosis awaiting anti-GBM, ANCA (both goodpasture and other vasculitis can give ANCA positive) and kidney Bx. If kidney Bx cannot be done soon and disease continue to progress we should consider cyclophosphamide and plasmapheresis. 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
--- NOTE | 2017-04-15 21:03 | CONSULT ---
Consult - text type - Consultation Consultation Note: 77 year old female with PMHx of borderline hypertension, polymyalgia rheumatica and hypothyroidism, admitted with edema erythema and ulcers in both legs and shortness of breath, and in the hospital she developed hemoptysis and active urinary sediment with proteinuria and hematuria. Prior to admission she was treated for presumed pneumonia for SOB with antibiotics and medrol dose delaney She was admitted for leg ulcers/presumed cellulitis CT scan of the chest reported with multifocal consolidation opacities in bilateral upper lobes, R>L with air bronchograms. Also consolidate opacities in the right middle lobe and left lower lobe and very small pleural effusions, L> R. Mediastinal lymphadenopathy and right hilar lymphadenopathy. \ Polymyalgia rheumatica: diagnosed 4 years ago and treated with steroids with good response. - History Source History Provided By: Patient, Medical Record - Past Medical History Cardio/Vascular: Yes: HTN Pulmonary: Yes: Pneumonia Renal/: Yes: Renal Inusuff ...: No Rheumatology: Yes: Other (Polymyalgia rheumatica) Endocrine: Yes: Hypothyroidism Dermatology: Yes: Other (open LE wounds) - Past Surgical History Additional Surgical History: excision debridement of right ankle ulcer 2013 - Smoking History Smoking history: Never smoked Home Medications - Allergies Allergies/Adverse Reactions: Allergies Allergy/AdvReac Type Severity Reaction Status Date / Time Sulfa (Sulfonamide Allergy Severe Verified 04/09/17 12:43 Antibiotics) - Home Medications Home Medications: Ambulatory Orders Levothyroxine [Synthroid -] 100 mcg PO DAILY 03/23/14 Physical Exam Vital Signs: Vital Signs Temperature 98.4 F 04/13/17 20:50 Pulse Rate 73 04/13/17 20:50 Respiratory Rate 20 04/13/17 20:50 Blood Pressure 143/59 04/13/17 20:50 O2 Sat by Pulse Oximetry (%) 97 04/13/17 20:50 Constitutional: Yes: Mild Distress Eyes: Yes: WNL HENT: Yes: WNL Neck: Yes: WNL Cardiovascular: Yes: WNL Respiratory: Yes: Other (Few coarse crackles in the lower lobes.) Edema: Yes Labs: Abnormal Lab Results 04/11/17 04/12/17 04/15/17 16:30 08:45 06:30 WBC 10.5 H RBC 2.36 L Hgb 6.6 L* Hct 20.0 L Neutrophils % 90.2 H Lymphocytes % 6.5 L Monocytes % 3.2 L BUN Creatinine Random Glucose Calcium AST Total Protein Albumin Urine Protein Urine Glucose (UA) Urine Blood KEELEY Screen Positive H KEELEY Homogeneous Pattern 1:320 H KEELEY Nucleolar Pattern 1:320 H Antibody Screen Positive H Crossmatch See Detail 04/15/17 04/15/17 04/15/17 06:30 09:00 10:00 WBC RBC Hgb Hct Neutrophils % Lymphocytes % Monocytes % BUN 59 H D Creatinine 2.9 H Random Glucose 288 H D Calcium 7.8 L AST 9 L Total Protein 5.6 L Albumin 2.2 L Urine Protein 2+ H Urine Glucose (UA) 2+ H Urine Blood 3+ H KEELEY Screen KEELEY Homogeneous Pattern KEELEY Nucleolar Pattern Antibody Screen Positive H Crossmatch See Detail Active Medications Collagenase (Santyl -) 1 applic TP DAILY [facility] Last Admin: 04/15/17 09:59 Dose: 1 applic Docusate Sodium (Colace -) 100 mg PO BID [facility] Last Admin: 04/15/17 22:11 Dose: Not Given Gentamicin Sulfate (Garamycin 0.1% Ointment -) 1 applic TP BID [facility] Last Admin: 04/15/17 22:09 Dose: 1 applic Heparin Sodium (Porcine) (Heparin -) 5,000 unit SQ Q8H-IV [facility] Last Admin: 04/15/17 18:09 Dose: 5,000 unit Azithromycin (Zithromax 500mg Ivpb (Pre-Docked)) 250 mls @ 250 mls/hr IVPB DAILY [facility] Last Admin: 04/15/17 14:34 Dose: 250 mls/hr Piperacillin Sod/Tazobactam (Sod 2.25 gm/ Dextrose) 50 mls @ 100 mls/hr IVPB Q8H-IV [facility] PRN Reason: Protocol Last Admin: 04/15/17 18:09 Dose: 100 mls/hr Levothyroxine Sodium 100 mcg/ (Levothyroxine Sodium 12.5 mcg) 112.5 mcg PO DAILY@0700 [facility] Last Admin: 04/15/17 06:21 Dose: 112.5 mcg Methylprednisolone Sodium Succinate (Solu-Medrol -) 1,000 mg IVPB DAILY [facility] Stop: 04/16/17 10:01 Last Admin: 04/15/17 10:43 Dose: 1,000 mg Ondansetron HCl (Zofran Injection) 4 mg IVPB Q6H PRN PRN Reason: NAUSEA Last Admin: 04/11/17 05:37 Dose: 4 mg Pantoprazole Sodium (Protonix -) 40 mg PO DAILY [facility] Last Admin: 04/15/17 09:58 Dose: 40 mg Polyethylene Glycol (Miralax (For Daily Use) -) 17 gm PO DAILY [facility] Last Admin: 04/15/17 09:59 Dose: Not Given Senna (Senna -) 1 tab PO HS [facility] Last Admin: 04/15/17 22:11 Dose: Not Given Valacyclovir HCl (Valtrex -) 500 mg PO BID [facility] Last Admin: 04/15/17 22:09 Dose: 500 mg Problem List New onset of hemoptysis with multifocal consolidative opacities and possible glomerulonephritis (hematuria, proteinuria with hialine and granular casts) and progressive elevation of creatinine. 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 Last dose 04/15. holding ASA 7 days prior to biopsy Being transfused PRBCs for anemia of chronic disease discussed with Dr. Hamilton
[2017-04-15] MEDS: valACYclovir HCL 500 MG TABLET (FP) PO SCH (22:09)
[2017-04-15] MEDS: SENNOSIDES 8.6MG TABLET (FP) PO SCH (22:11)
[2017-04-16] MEDS ORDERED: PIPERACILLIN/TAZOBACTAM 2.25 GM VIAL IVPB ONE ×3 (01:10→16:47)
[2017-04-16] MEDS ORDERED: DEXTROSE 5%-WATER - 50 ML IVPB ONE ×3 (01:11→16:47)
[2017-04-16] MEDS: PIPERACILLIN/TAZOB 2.25 GM 2.25 GM in DEXTROSE 5%-WATER - 50 ML IVPB SCH ×3 (01:17→18:13)
[2017-04-16] MEDS: HEPARIN NA (PORCINE) 5,000 UNITS/ML 1ML VIAL SQ SCH ×3 (01:17→18:13)
[2017-04-16] MEDS ORDERED: LEVOTHYROXINE NA 100 MCG TABLET (FP) ONE (06:14)
[2017-04-16] MEDS ORDERED: LEVOTHYROXINE NA 25 MCG TABLET (FP) ONE (06:14)
[2017-04-16] MEDS: LEVOTHYROXINE PO SCH (06:28)
[2017-04-16 07:11] LABS: BASOPHIL 0.2 % (0-2.0); MCH 28.9 pg (25.7-33.7); MCHC 33.8 g/dl (32.0-36.0); MEAN CELL VOLUME 85.5 fl (80-96); MEAN PLT VOLUME 8.2 fl (7.5-11.1); NEUTROPHILS 87.8 % (42.8-82.8); PLATELET COUNT 298 K/MM3 (134-434); RDW 15.8 % (11.6-15.6); WHITE BLOOD COUNT 9.7 K/mm3 (4.0-10.0)
[2017-04-16 08:06] LABS: INR 1.16 (0.82-1.09); PROTHROMBIN TIME (PATIENT) 12.8 SEC (9.98-11.88)
[2017-04-16 08:09] LABS: ACTIVATED PTT 33.6 SECONDS (26.9-34.4)
--- NOTE | 2017-04-16 08:25 | PN ---
Progress Note (short form) - Note Progress Note: Feeling better, less pain Left ankle wounds dry. Less necrotic tissue. Right ankle ulcer with less exudate. Slow improvement. Continue topical and systemic antibiotics. 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
[2017-04-16 08:30] LABS: ALBUMIN 2.4 g/dl (3.4-5.0); ALK PHOS 70 U/L (45-117); ANION GAP 10 (8-16); BILIRUBIN,TOTAL 0.6 mg/dL (0.2-1.0); CO2 23 mmol/L (21-32); MAGNESIUM 2.5 mg/dL (1.8-2.4); SGOT/AST 19 U/L (15-37); SGPT/ALT 28 U/L (12-78); TOT PROT 6.1 g/dl (6.4-8.2)
[2017-04-16 09:09] LABS: GLUCOSE,RANDOM 330 mg/dL (74-106)
[2017-04-16 09:38] LABS: URINE APPEARANCE CLOUDY; URINE BILIRUBIN NEGATIVE (NEGATIVE); URINE BLOOD 3+ (NEGATIVE); URINE COLOR LTYELLOW; URINE GLUCOSE (UA) 2+ (NEGATIVE); URINE KETONE NEGATIVE (NEGATIVE); URINE LEUK ESTERASE TRACE (NEGATIVE); URINE NITRITE NEGATIVE (NEGATIVE); URINE UROBILINOGEN NEGATIVE mg/dL (0.2-1.0)
[2017-04-16] MEDS ORDERED: INSULIN (NOVOLOG) ASPART 100 UNITS/ML 10ML VIAL ONE ×2 (09:38→21:04)
[2017-04-16] MEDS: DOCUSATE SODIUM 100 MG CAPSULE (FP) PO SCH (09:40)
[2017-04-16] MEDS: POLYETHYLENE GLYCOL 3350 119 GM BTL PO SCH (09:40)
[2017-04-16] MEDS: PANTOPRAZOLE 40 MG TABLET (FP) PO SCH (09:43)
[2017-04-16] MEDS: valACYclovir HCL 500 MG TABLET (FP) PO SCH ×2 (09:43→21:07)
[2017-04-16] MEDS: COLLAGENASE CLOSTRIDIUM HIST. 30 GRAMS TUBE TP SCH (09:43)
[2017-04-16] MEDS: GENTAMICIN SO4 0.1% TOPICAL OINTMENT 15 GM/TUBE TUBE TP SCH (09:43)
[2017-04-16 09:55] LABS: URINE PROTEIN 2+ (NEGATIVE)
[2017-04-16 09:57] LABS: GRANULAR CASTS 4 /lpf; URINE HYALINE CAST 4 /lpf; URINE MUCUS RARE; URINE RBC 76 /hpf (0-3); URINE WBC 30 /hpf (3-5); YEAST RARE
[2017-04-16] MEDS ORDERED: Insulin (LOG) Aspart 100 UNITS/ML VIAL SQ ONE (11:00)
--- NOTE | 2017-04-16 11:22 | PN ---
Teaching Attending Note Name of Resident: Osorio Wilson ATTENDING PHYSICIAN STATEMENT I saw and evaluated the patient. I reviewed the resident's note and discussed the case with the resident. I agree with the resident's findings and plan as documented. PULMONARY ALERT,OOB-CHAIR FEELING BETTER,-SOB,-HEMOPTYSIS Problem List - Problems (1) Acute kidney injury Code(s): N17.9 - ACUTE KIDNEY FAILURE, UNSPECIFIED (2) Cellulitis Code(s): L03.90 - CELLULITIS, UNSPECIFIED Qualifiers: Site of cellulitis: extremity Site of cellulitis of extremity: lower extremity Laterality: unspecified laterality Qualified Code(s): L03.119 - Cellulitis of unspecified part of limb (3) Venous stasis of both lower extremities Code(s): I87.8 - OTHER SPECIFIED DISORDERS OF VEINS (4) Hemoptysis Code(s): R04.2 - HEMOPTYSIS (5) Acute hypoxemic respiratory failure Code(s): J96.01 - ACUTE RESPIRATORY FAILURE WITH HYPOXIA (6) Bilateral pulmonary infiltrates on chest x-ray Code(s): R91.8 - OTHER NONSPECIFIC ABNORMAL FINDING OF LUNG FIELD (7) Vasculitis Code(s): I77.6 - ARTERITIS, UNSPECIFIED Assessment/Plan IMP ACUTE HYPOXEMIC RESPIRATORY FAILURE EXTENSIVE BILATERAL INFILTRATES LIKELY VASCULITIS (HEMOPTYSIS,RENAL INSUFFIENCY) PULMONARY RENAL SYNDROME,AUTOIMMUNE HEMOPTYSIS SECONDARY TO ABOVE HTN ANEMIA CHRONIC VENOUS STASIS HYPOTHYROIDISM PLAN IV ANTIBIOTICS IV STEROIDS O2 SEROLOGY PENDING F/U CHEST X-RAY TPDAY FLEX BRONCH IF NO IMPROVEMENT TRANFUSE RENAL BX MONITOR H+H DR CORBIN Problem List - Problems (1) Acute kidney injury Code(s): N17.9 - ACUTE KIDNEY FAILURE, UNSPECIFIED (2) Cellulitis Code(s): L03.90 - CELLULITIS, UNSPECIFIED Qualifiers: Site of cellulitis: extremity Site of cellulitis of extremity: lower extremity Laterality: unspecified laterality Qualified Code(s): L03.119 - Cellulitis of unspecified part of limb (3) Venous stasis of both lower extremities Code(s): I87.8 - OTHER SPECIFIED DISORDERS OF VEINS (4) Hemoptysis Code(s): R04.2 - HEMOPTYSIS (5) Acute hypoxemic respiratory failure Code(s): J96.01 - ACUTE RESPIRATORY FAILURE WITH HYPOXIA (6) Bilateral pulmonary infiltrates on chest x-ray Code(s): R91.8 - OTHER NONSPECIFIC ABNORMAL FINDING OF LUNG FIELD (7) Vasculitis Code(s): I77.6 - ARTERITIS, UNSPECIFIED Problem List - Problems (1) Acute kidney injury Code(s): N17.9 - ACUTE KIDNEY FAILURE, UNSPECIFIED (2) Cellulitis Code(s): L03.90 - CELLULITIS, UNSPECIFIED Qualifiers: Site of cellulitis: extremity Site of cellulitis of extremity: lower extremity Laterality: unspecified laterality Qualified Code(s): L03.119 - Cellulitis of unspecified part of limb (3) Venous stasis of both lower extremities Code(s): I87.8 - OTHER SPECIFIED DISORDERS OF VEINS (4) Hemoptysis Code(s): R04.2 - HEMOPTYSIS (5) Acute hypoxemic respiratory failure Code(s): J96.01 - ACUTE RESPIRATORY FAILURE WITH HYPOXIA (6) Bilateral pulmonary infiltrates on chest x-ray Code(s): R91.8 - OTHER NONSPECIFIC ABNORMAL FINDING OF LUNG FIELD (7) Vasculitis Code(s): I77.6 - ARTERITIS, UNSPECIFIED
[2017-04-16] MEDS: AZITHROMYCIN IVPB 250 ML IVPB SCH (11:33)
[2017-04-16] MEDS: methylPREDNISolone NA SUCC 40 MG/1 ML VIAL IVPB SCH (11:33)
[2017-04-16] MEDS: INSULIN SLIDING SCALE (NOVOLOG) 1 VIAL SQ SCH ×3 (11:35→21:10)
--- NOTE | 2017-04-16 11:42 | PN ---
Progress Note (short form) - Note Progress Note: Patient seen and examined She mentions her breathing is the same. ulcers bothering her. O/E: General: sitting in a chair, on oxygen HEENT: No scleral icterus, no LAD Lungs: CTA b/l ABdomen: soft LE: +bilateral ulcers in dressing. Last Vital Signs Temp Pulse Resp BP Pulse Ox 97.4 F L 48 L 18 143/56 97 04/16/17 10:00 04/16/17 10:00 04/16/17 10:00 04/16/17 10:00 04/16/17 11:12 CBC, BMP 04/16/17 05:35 04/16/17 05:35 Current Medications Generic Name Dose Route Start Last Admin Trade Name Freq PRN Reason Stop Dose Admin Collagenase 1 applic 04/10/17 10:00 04/16/17 09:43 Santyl - TP 1 applic DAILY [facility] Administration Docusate Sodium 100 mg 04/10/17 10:00 04/16/17 09:40 Colace - PO Not Given BID [facility] Gentamicin Sulfate 1 applic 04/16/17 10:00 04/16/17 09:43 Garamycin 0.1% Ointment - TP 1 applic DAILY [facility] Administration Heparin Sodium (Porcine) 5,000 unit 04/09/17 18:00 04/16/17 09:42 Heparin - SQ 5,000 unit Q8H-IV [facility] Administration Azithromycin 250 mls @ 250 mls/hr 04/12/17 16:15 04/15/17 14:34 Zithromax 500mg Ivpb (Pre-Docked) IVPB 250 mls/hr DAILY [facility] Administration Piperacillin Sod/Tazobactam 50 mls @ 100 mls/hr 04/15/17 10:15 04/16/17 09:41 Sod 2.25 gm/ Dextrose IVPB 100 mls/hr Q8H-IV [facility] Administration Protocol Insulin Aspart 0 vial 04/16/17 11:00 Novolog Vial Sliding Scale - SQ ACHS [facility] Protocol Levothyroxine Sodium 100 mcg/ 112.5 mcg 04/13/17 07:00 04/16/17 06:28 Levothyroxine Sodium 12.5 mcg PO 112.5 mcg DAILY@0700 [facility] Administration Ondansetron HCl 4 mg 04/10/17 08:46 04/11/17 05:37 Zofran Injection IVPB 4 mg Q6H PRN Administration NAUSEA Pantoprazole Sodium 40 mg 04/14/17 11:45 04/16/17 09:43 Protonix - PO 40 mg DAILY [facility] Administration Polyethylene Glycol 17 gm 04/10/17 10:00 04/16/17 09:40 Miralax (For Daily Use) - PO Not Given DAILY [facility] Senna 1 tab 04/10/17 22:00 04/15/17 22:11 Senna - PO Not Given HS [facility] Valacyclovir HCl 500 mg 04/15/17 22:00 04/16/17 09:43 Valtrex - PO 500 mg BID [facility] Administration Assessment/Plan: Good pastures Anemia Pulm/Renal involvement from Good-Pasture's Cellulitis -s/p PRBC transfusion, stable crit for now, will maintain an active type/cross always -Continues to be on high dose steroids -Cr trend up -Awaiting Kidney biopsy ( ASA stopped yesterday) -Rheum/Renal/Pulm f/u -?Plasma exchange, ?Timing -On abx for cellulitis. -low threshold for ICU transfer.
--- NOTE | 2017-04-16 11:56 | PN ---
Physical Exam: SUBJECTIVE: Patient seen and examined. Sitting in the chair, in no acute distress. State she feels better after the blood transfusion. OBJECTIVE: Blood sugars elevated, started on ac/hs of Novolog sliding scale Remains with bradycardia on monitor, she remains asymptomatic Vital Signs Period Temp Pulse Resp BP Sys/Horn Pulse Ox Last 24 Hr 97.4 F-98.6 F 41-54 16-18 93-158/56-72 93-97 GENERAL: The patient is awake, alert, and fully oriented, in no acute distress. HEAD: Normal with no signs of trauma. EYES: PERRL, extraocular movements intact, sclera anicteric, conjunctiva clear. No ptosis. ENT: Ears normal, nares patent, oropharynx clear without exudates, moist mucous membranes. NECK: Trachea midline, full range of motion, supple. LUNGS: Breath sounds equal, clear to auscultation bilaterally, no wheezes, shortness of breath at rest, requires 2 liters of supplemental oxygen HEART: Regular rate and rhythm, ABDOMEN: Soft, nontender, nondistended, normoactive bowel sounds, no guarding, no rebound, no hepatosplenomegaly, no masses. EXTREMITIES: 2+ pulses, warm, well-perfused, no edema. NEUROLOGICAL: Normal speech, gait not observed. PSYCH: Normal mood, normal affect. SKIN: RLE medial open wound clean, pink, no bleeding + pulse on right foot. LLE : dressing cdi, wound not viewed, faint pulse felt on left foot. Laboratory Results - last 24 hr 04/11/17 04/14/17 04/15/17 16:30 07:00 09:00 WBC RBC Hgb Hct MCV MCH MCHC RDW Plt Count MPV Neutrophils % Lymphocytes % Monocytes % Eosinophils % Basophils % PT with INR INR PTT (Actin FS) Fibrinogen Sodium Potassium Chloride Carbon Dioxide Anion Gap BUN Creatinine Creat Clearance w eGFR POC Glucometer Random Glucose Calcium Magnesium Total Bilirubin AST ALT Alkaline Phosphatase Total Protein Albumin Urine Color Urine Appearance Urine pH Ur Specific [place] Urine Protein Urine Glucose (UA) Urine Ketones Urine Blood Urine Nitrite Urine Bilirubin Urine Urobilinogen Urine RBC Urine WBC Ur Epithelial Cells Hyaline Casts Granular Casts Urine Mucus Urine Yeast Urine Eosinophils Cancelled KEELEY Screen Positive H KEELEY Homogeneous Pattern 1:320 H KEELEY Nucleolar Pattern 1:320 H KEELEY Speckled Pattern TNP KEELEY Centromere Pattern TNP Double Strand DNA Ab <1 Tot Complement (CH50) > 65 H Blood Type O POSITIVE Antibody Screen Positive H Antibody Identification TNP Crossmatch See Detail 04/15/17 04/16/17 04/16/17 10:00 05:35 05:35 WBC 9.7 RBC 3.21 L D Hgb 9.3 L D Hct 27.4 L D MCV 85.5 MCH 28.9 MCHC 33.8 RDW 15.8 H Plt Count 298 MPV 8.2 Neutrophils % 87.8 H Lymphocytes % 8.1 D Monocytes % 3.9 Eosinophils % 0.0 Basophils % 0.2 PT with INR INR PTT (Actin FS) Fibrinogen Sodium 137 Potassium 4.3 Chloride 104 Carbon Dioxide 23 Anion Gap 10 BUN 66 H Creatinine 3.0 H Creat Clearance w eGFR 15.17 POC Glucometer Random Glucose 330 H* Calcium 8.0 L Magnesium 2.5 H Total Bilirubin 0.6 D AST 19 D ALT 28 D Alkaline Phosphatase 70 Total Protein 6.1 L Albumin 2.4 L Urine Color Yellow Urine Appearance Cloudy Urine pH 5.0 Ur Specific [place] 1.020 Urine Protein 2+ H Urine Glucose (UA) 2+ H Urine Ketones Negative Urine Blood 3+ H Urine Nitrite Negative Urine Bilirubin Negative Urine Urobilinogen Negative Urine RBC Urine WBC Ur Epithelial Cells Hyaline Casts Granular Casts Urine Mucus Urine Yeast Urine Eosinophils KEELEY Screen KEELEY Homogeneous Pattern KEELEY Nucleolar Pattern KEELEY Speckled Pattern KEELEY Centromere Pattern Double Strand DNA Ab Tot Complement (CH50) Blood Type Antibody Screen Antibody Identification Crossmatch 04/16/17 04/16/17 04/16/17 05:35 09:00 11:34 WBC RBC Hgb Hct MCV MCH MCHC RDW Plt Count MPV Neutrophils % Lymphocytes % Monocytes % Eosinophils % Basophils % PT with INR 12.80 H INR 1.16 H PTT (Actin FS) 33.6 Fibrinogen 320.0 Sodium Potassium Chloride Carbon Dioxide Anion Gap BUN Creatinine Creat Clearance w eGFR POC Glucometer 373 Random Glucose Calcium Magnesium Total Bilirubin AST ALT Alkaline Phosphatase Total Protein Albumin Urine Color Ltyellow Urine Appearance Cloudy Urine pH 5.0 Ur Specific [place] 1.020 Urine Protein 2+ H Urine Glucose (UA) 2+ H Urine Ketones Negative Urine Blood 3+ H Urine Nitrite Negative Urine Bilirubin Negative Urine Urobilinogen Negative Urine RBC 76 Urine WBC 30 Ur Epithelial Cells Moderate Hyaline Casts 4 Granular Casts 4 Urine Mucus Rare Urine Yeast Rare Urine Eosinophils KEELEY Screen KEELEY Homogeneous Pattern KEELEY Nucleolar Pattern KEELEY Speckled Pattern KEELEY Centromere Pattern Double Strand DNA Ab Tot Complement (CH50) Blood Type Antibody Screen Antibody Identification Crossmatch Active Medications Generic Name Dose Route Start Last Admin Trade Name Byron PRN Reason Stop Dose Admin Collagenase 1 applic 04/10/17 10:00 04/16/17 09:43 Santyl - TP 1 applic DAILY MILES Administration Docusate Sodium 100 mg 04/10/17 10:00 04/16/17 09:40 Colace - PO Not Given BID MILES Gentamicin Sulfate 1 applic 04/16/17 10:00 04/16/17 09:43 Garamycin 0.1% Ointment - TP 1 applic DAILY MILES Administration Heparin Sodium (Porcine) 5,000 unit 04/09/17 18:00 04/16/17 09:42 Heparin - SQ 5,000 unit Q8H-IV MILES Administration Azithromycin 250 mls @ 250 mls/hr 04/12/17 16:15 04/16/17 11:33 Zithromax 500mg Ivpb (Pre-Docked) IVPB 250 mls/hr DAILY MILES Administration Piperacillin Sod/Tazobactam 50 mls @ 100 mls/hr 04/15/17 10:15 04/16/17 09:41 Sod 2.25 gm/ Dextrose IVPB 100 mls/hr Q8H-IV MILES Administration Protocol Insulin Aspart 0 vial 04/16/17 11:00 04/16/17 11:35 Novolog Vial Sliding Scale - SQ 10 unit ACHS MILES Administration Protocol Levothyroxine Sodium 100 mcg/ 112.5 mcg 04/13/17 07:00 04/16/17 06:28 Levothyroxine Sodium 12.5 mcg PO 112.5 mcg DAILY@0700 MILES Administration Ondansetron HCl 4 mg 04/10/17 08:46 04/11/17 05:37 Zofran Injection IVPB 4 mg Q6H PRN Administration NAUSEA Pantoprazole Sodium 40 mg 04/14/17 11:45 04/16/17 09:43 Protonix - PO 40 mg DAILY MILES Administration Polyethylene Glycol 17 gm 04/10/17 10:00 04/16/17 09:40 Miralax (For Daily Use) - PO Not Given DAILY MILES Senna 1 tab 04/10/17 22:00 04/15/17 22:11 Senna - PO Not Given HS MILES Valacyclovir HCl 500 mg 04/15/17 22:00 04/16/17 09:43 Valtrex - PO 500 mg BID MILES Administration ASSESSMENT/PLAN: Patient is a 77 year old female with a past medical history of of non healing chronic RLE venous ulcer, borderline hypertension, polymyalgia, hypothyroidism, sent to ED by Dr. Silvestre for b/l lower extremity cellulitis. Rheumatology: Autoimmune Disease/disorder A/P: Patient has hx of polymyalgia rheumatica Now with progressive chronic bilateral lower ext ulcers, hematuria, renal disease and had episode of hemoptysis She is KEELEY positive, rule out for Good Pasture syndrome vs. vasculitis vs. Lupus Kidney biopsy to be done on Saturday, ASA stopped yesterday Patient followed by ophthalmologist retina specialist If diseae continues to progress, may need Cytoxan and plasma plasmapheresis Given Pulse steriods betwen 04/14>04/16, Cardiology: Elevated trops/Bradycardia between 30s/40s overnight and now bradycardia in the 40s A/P: Trops minimally elevated Cardiology notes reviewed, unlikely ACS Bradycardia again today morning Her Synthroid was increased to 112.5mg on 04/19 when TSH levels were elevated Patient reports to be compliant with Synthroid home dose Will consult Emergency Dispatcher ID: Bilateral Lower Ext. Cellulitis - acute on chronic A/P: Hx of chronic LE ulcers secondary to venous stasis Sherin of MRSA, VRE, on contact precautions On Zoysn for LE cellulitis, ID following Vascular following Wound dressing with Santyl Hematology: A/P: Symptomatic anemia Having shortness of breath with minimal exertion Blood/Iron studies with anemia of chronic disease S/P 2 units of prbc, now with stable cbc Blood occult stool negative Pulmonary: Hemoptysis - now resolved A/P: pulm following Monitor for any further hemoptysis Chest xray with bilateral infiltrates Renal: MYRTLE A/P: Bun/Creat now 3.0 As per renal, pt may need kidney biopsy, ASA stopped on Renal following Endocrine: Hypothyroidism A/P: TSH elevated synthroid increased to 112.5mcg on 04/13 Steroid induced hyperglyceia A/P: now on sliding scale, Levemir added Monitor BGMs tid/ac/hs Prophylaxis: DVT: Heparin 5000 SC q8 GI: Protonix F.E.N. Fluids: tolerating PO Electrolytes: monitor Nutrition: low sodium diet Disposition: Full code. Visit type - Emergency Visit Emergency Visit: Yes ED Registration Date: 04/09/17 Care time: The patient presented to the Emergency Department on the above date and was hospitalized for further evaluation of their emergent condition. - New Patient This patient is new to me today: No - Critical Care Critical Care patient: No - Discharge Referral Referred to [facility] Med P.C.: No
--- NOTE | 2017-04-16 12:07 | PN ---
Physical Exam: PULMONARY CONSULT SUBJECTIVE: Patient feels much better today. Denies hemoptysis. Denies CP or SOB. OBJECTIVE: Vital Signs Period Temp Pulse Resp BP Sys/Horn Pulse Ox Last 24 Hr 97.4 F-98.6 F 41-54 16-18 93-158/56-72 93-97 GEN: AAOx3, NAD, Sitting comfortably in the chair HEENT: PERRLA, EOMi CV: S1, S2, bradycardic rate, regular rhythm LUNG: CTABL ABD: Soft, NT, ND, normoactive BS MSK: +bilateral venous stasis ulcers, +2 BL pitting LE edema Laboratory Last Values WBC 9.7 K/mm3 (4.0-10.0) 04/16/17 05:35 RBC 3.21 M/mm3 (3.60-5.2) L D 04/16/17 05:35 Hgb 9.3 GM/dL (10.7-15.3) L D 04/16/17 05:35 Hct 27.4 % (32.4-45.2) L D 04/16/17 05:35 MCV 85.5 fl (80-96) 04/16/17 05:35 MCH 28.9 pg (25.7-33.7) 04/16/17 05:35 MCHC 33.8 g/dl (32.0-36.0) 04/16/17 05:35 RDW 15.8 % (11.6-15.6) H 04/16/17 05:35 Plt Count 298 K/MM3 (134-434) 04/16/17 05:35 MPV 8.2 fl (7.5-11.1) 04/16/17 05:35 Neutrophils % 87.8 % (42.8-82.8) H 04/16/17 05:35 Lymphocytes % 8.1 % (8-40) D 04/16/17 05:35 Monocytes % 3.9 % (3.8-10.2) 04/16/17 05:35 Eosinophils % 0.0 % (0-4.5) 04/16/17 05:35 Basophils % 0.2 % (0-2.0) 04/16/17 05:35 Basophilic Stippling 1+ 04/15/17 06:30 ESR 105 mm/hr (0-30) H 04/14/17 07:00 Haptoglobin 431 mg/dL (34-200) H 04/13/17 07:30 PT with INR 12.80 SEC (9.98-11.88) H 04/16/17 05:35 INR 1.16 (0.82-1.09) H 04/16/17 05:35 PTT (Actin FS) 33.6 SECONDS (26.9-34.4) 04/16/17 05:35 Fibrinogen 320.0 mg/dL (238-498) 04/16/17 05:35 Puncture Site Left radial 04/12/17 16:50 ABG pH 7.43 (7.35-7.45) 04/12/17 16:50 ABG pCO2 at Pt Temp 37.1 mmHg (35-45) 04/12/17 16:50 ABG pO2 at Pt Temp 50.8 mmHg (70-100) L 04/12/17 16:50 ABG HCO3 24.1 meq/L (22-26) 04/12/17 16:50 ABG O2 Sat (Measured) 85.9 % (90-98.9) L 04/12/17 16:50 ABG O2 Content 10.4 % vol (15-22) L 04/12/17 16:50 ABG Base Excess 0.4 meq/l (-2-2) 04/12/17 16:50 Aaron Test Positive 04/12/17 16:50 Oxygen Flow Rate room air 04/12/17 16:50 PEEP 0.0 cmH2O 04/12/17 16:50 Sodium 137 mmol/L (136-145) 04/16/17 05:35 Potassium 4.3 mmol/L (3.5-5.1) 04/16/17 05:35 Chloride 104 mmol/L (98-107) 04/16/17 05:35 Carbon Dioxide 23 mmol/L (21-32) 04/16/17 05:35 Anion Gap 10 (8-16) 04/16/17 05:35 BUN 66 mg/dL (7-18) H 04/16/17 05:35 Creatinine 3.0 mg/dL (0.55-1.02) H 04/16/17 05:35 Creat Clearance w eGFR 15.17 (>60) 04/16/17 05:35 Random Glucose 330 mg/dL (74-106) H* 04/16/17 05:35 Lactic Acid 0.9 mmol/L (0.4-2.0) 04/12/17 18:30 Calcium 8.0 mg/dL (8.5-10.1) L 04/16/17 05:35 Magnesium 2.5 mg/dL (1.8-2.4) H 04/16/17 05:35 Iron 13 ug/dL (27-139) L 04/12/17 14:10 TIBC 163 ug/dL (250-450) L 04/12/17 14:10 Iron Saturation 8 % (15-55) L 04/12/17 14:10 Transferrin 127 mg/dL (200-370) L 04/12/17 14:10 Ferritin Cancelled 04/12/17 14:10 Total Bilirubin 0.6 mg/dL (0.2-1.0) D 04/16/17 05:35 AST 19 U/L (15-37) D 04/16/17 05:35 ALT 28 U/L (12-78) D 04/16/17 05:35 Alkaline Phosphatase 70 U/L (45-117) 04/16/17 05:35 LD Total 201 U/L (84-246) 04/13/17 06:15 Creatine Kinase 95 IU/L (26-192) 04/10/17 06:10 Creatine Kinase Index 0.5 % (0.0-5.0) 04/09/17 14:23 CK-MB (CK-2) 1.031 ng/mL (0.5-3.6) 04/09/17 14:23 Troponin I 0.08 ng/ml (0.00-0.05) H 04/10/17 06:10 C-Reactive Protein 10.0 MG/DL (0.00-0.3) H 04/11/17 07:00 Total Protein 6.1 g/dl (6.4-8.2) L 04/16/17 05:35 Albumin 2.4 g/dl (3.4-5.0) L 04/16/17 05:35 Triglycerides 133 mg/dL (35-160) 04/11/17 06:00 Cholesterol 136 mg/dL (50-200) 04/11/17 06:00 Total LDL Cholesterol 79 mg/dL (5-100) 04/11/17 06:00 HDL Cholesterol 31 mg/dL (40-60) L 04/11/17 06:00 TSH 19.10 uIU/ml (0.358-3.74) H 04/10/17 06:10 Free T4 Cancelled 04/11/17 11:03 Free T3 1.7 pg/ml (2.0-4.4) L 04/11/17 11:03 Urine Color Ltyellow 04/16/17 09:00 Urine Appearance Cloudy 04/16/17 09:00 Urine pH 5.0 (5.0-8.0) 04/16/17 09:00 Ur Specific [place] 1.020 (1.005-1.025) 04/16/17 09:00 Urine Protein 2+ (NEGATIVE) H 04/16/17 09:00 Urine Glucose (UA) 2+ (NEGATIVE) H 04/16/17 09:00 Urine Ketones Negative (NEGATIVE) 04/16/17 09:00 Urine Blood 3+ (NEGATIVE) H 04/16/17 09:00 Urine Nitrite Negative (NEGATIVE) 04/16/17 09:00 Urine Bilirubin Negative (NEGATIVE) 04/16/17 09:00 Urine Urobilinogen Negative mg/dL (0.2-1.0) 04/16/17 09:00 Urine RBC 76 /hpf (0-3) 04/16/17 09:00 Urine WBC 30 /hpf (3-5) 04/16/17 09:00 Ur Epithelial Cells Moderate /hpf (FEW) 04/16/17 09:00 Hyaline Casts 4 /lpf 04/16/17 09:00 Granular Casts 4 /lpf 04/16/17 09:00 Urine Mucus Rare 04/16/17 09:00 Urine Yeast Rare 04/16/17 09:00 Urine Eosinophils Cancelled 04/11/17 16:30 U Random Total Protein 104 mg/dl (5-11.9) H 04/12/17 09:00 Ur Random Sodium 68 MMOL/L 04/12/17 10:30 Ur Random Potassium 37.2 MMOL/L 04/12/17 10:30 Ur Random Chloride 82 MMOL/L 04/12/17 10:30 Ur Random Urea Nitrogn 571 mg/dL 04/12/17 09:00 Urine Creatinine 89.5 mg/dL (20-320) 04/12/17 10:30 Protein/Creatinin Ratio 0.97 MG/DL 04/12/17 09:00 Stool Occult Blood Negative (NEGATIVE) 04/13/17 11:30 Random Vancomycin 4.011 ug/ml 04/12/17 05:30 KEELEY Screen Positive (.) H 04/11/17 16:30 KEELEY Homogeneous Pattern 1:320 (.) H 04/11/17 16:30 KEELEY Nucleolar Pattern 1:320 (.) H 04/11/17 16:30 KEELEY Speckled Pattern TNP 04/11/17 16:30 KEELEY Centromere Pattern TNP 04/11/17 16:30 Double Strand DNA Ab <1 IU/mL (0-9) 04/11/17 16:30 Tot Complement (CH50) > 65 U/mL (42-60) H 04/14/17 07:00 Blood Type O POSITIVE 04/15/17 09:00 Antibody Screen Positive H 04/15/17 09:00 Antibody Identification TNP 04/15/17 09:00 Crossmatch See Detail 04/15/17 09:00 Active Medications Generic Name Dose Route Start Last Admin Trade Name Byron PRN Reason Stop Dose Admin Collagenase 1 applic 04/10/17 10:00 04/16/17 09:43 Santyl - TP 1 applic DAILY MILES Administration Docusate Sodium 100 mg 04/10/17 10:00 04/16/17 09:40 Colace - PO Not Given BID MILES Gentamicin Sulfate 1 applic 04/16/17 10:00 04/16/17 09:43 Garamycin 0.1% Ointment - TP 1 applic DAILY MILES Administration Heparin Sodium (Porcine) 5,000 unit 04/09/17 18:00 04/16/17 09:42 Heparin - SQ 5,000 unit Q8H-IV MILES Administration Azithromycin 250 mls @ 250 mls/hr 04/12/17 16:15 04/16/17 11:33 Zithromax 500mg Ivpb (Pre-Docked) IVPB 250 mls/hr DAILY MILES Administration Piperacillin Sod/Tazobactam 50 mls @ 100 mls/hr 04/15/17 10:15 04/16/17 09:41 Sod 2.25 gm/ Dextrose IVPB 100 mls/hr Q8H-IV MILES Administration Protocol Insulin Aspart 0 vial 04/16/17 11:00 04/16/17 11:35 Novolog Vial Sliding Scale - SQ 10 unit ACHS MILES Administration Protocol Levothyroxine Sodium 100 mcg/ 112.5 mcg 04/13/17 07:00 04/16/17 06:28 Levothyroxine Sodium 12.5 mcg PO 112.5 mcg DAILY@0700 MILES Administration Ondansetron HCl 4 mg 04/10/17 08:46 04/11/17 05:37 Zofran Injection IVPB 4 mg Q6H PRN Administration NAUSEA Pantoprazole Sodium 40 mg 04/14/17 11:45 04/16/17 09:43 Protonix - PO 40 mg DAILY MILES Administration Polyethylene Glycol 17 gm 04/10/17 10:00 04/16/17 09:40 Miralax (For Daily Use) - PO Not Given DAILY MILES Senna 1 tab 04/10/17 22:00 04/15/17 22:11 Senna - PO Not Given HS MILES Valacyclovir HCl 500 mg 04/15/17 22:00 04/16/17 09:43 Valtrex - PO 500 mg BID MILES Administration ASSESSMENT/PLAN: Ms. Chiang is a 77yo F with PMHx of Polymyalgia rheumatica, HTN, Hypothyroidism , admitted for bilateral lower extremity cellulitis. During the hospitalization , she developed hemoptysis, SOB, and hypoxia (86% on RA). # Possible Goodpastures - vs other vasculitities - New onset hemoptysis + multifocal B/L consolidative opacities on CT + progressive MYRTLE w/ UA +RBC, granular casts - Cr continues to rise - Day 3/3 of Solumedrol 1,000mg IVPB daily - Anti GBM Ab pending - F/u Kidney biopsy - If kidney biopsy confirms, then start cyclophosphamide + plasmapheresis # Anemia - Improved s/p 2u PRBC - Currently asymptomatic Rest as per Primary Team. We will continue to follow Osorio Wilson MD - PGY1 Internal Medicine Visit type - Emergency Visit Emergency Visit: No - New Patient This patient is new to me today: No - Critical Care Critical Care patient: No - Discharge Referral Referred to [facility] Med P.C.: No
--- NOTE | 2017-04-16 12:41 | PN ---
Progress Note, Physician Chief Complaint: Pt sitting in chair, having lunch; feels stronger, and denies shortness of breath, palpitations, dizziness, or chest pain. History of Present Illness: 87-year-old black female sent in by Dr. Silvestre for evaluation of nonhealing chronic lower extremity wounds now suggestive of cellulitis. Patient states was seen earlier this week and then again today for redness and swelling of the thumb, bilateral lower extremity wounds and swelling, now with a draining wound to the side of left ankle. Patient denies fever, chills but does state pain and redness to the area. Patient states had an ultrasound a few days ago which was negative for DVT. Patient does have history of MRSA. Patient also states history of chronic venous stasis. Pt has also been increasingly short of breath over the past 2 months; she now becomes winded with minimal exertion. Timing/Duration: getting worse Severity: moderate Associated Symptoms: reports: denies symptoms - Current Medication List Current Medications: Active Medications Collagenase (Santyl -) 1 applic TP DAILY [facility] Last Admin: 04/16/17 09:43 Dose: 1 applic Docusate Sodium (Colace -) 100 mg PO BID [facility] Last Admin: 04/16/17 09:40 Dose: Not Given Gentamicin Sulfate (Garamycin 0.1% Ointment -) 1 applic TP DAILY [facility] Last Admin: 04/16/17 09:43 Dose: 1 applic Heparin Sodium (Porcine) (Heparin -) 5,000 unit SQ Q8H-IV [facility] Last Admin: 04/16/17 09:42 Dose: 5,000 unit Azithromycin (Zithromax 500mg Ivpb (Pre-Docked)) 250 mls @ 250 mls/hr IVPB DAILY [facility] Last Admin: 04/16/17 11:33 Dose: 250 mls/hr Piperacillin Sod/Tazobactam (Sod 2.25 gm/ Dextrose) 50 mls @ 100 mls/hr IVPB Q8H-IV [facility] PRN Reason: Protocol Last Admin: 04/16/17 09:41 Dose: 100 mls/hr Insulin Aspart (Novolog Vial Sliding Scale -) 0 vial SQ ACHS [facility] PRN Reason: Protocol Last Admin: 04/16/17 11:35 Dose: 10 unit Levothyroxine Sodium 100 mcg/ (Levothyroxine Sodium 12.5 mcg) 112.5 mcg PO DAILY@0700 [facility] Last Admin: 04/16/17 06:28 Dose: 112.5 mcg Ondansetron HCl (Zofran Injection) 4 mg IVPB Q6H PRN PRN Reason: NAUSEA Last Admin: 04/11/17 05:37 Dose: 4 mg Pantoprazole Sodium (Protonix -) 40 mg PO DAILY [facility] Last Admin: 04/16/17 09:43 Dose: 40 mg Polyethylene Glycol (Miralax (For Daily Use) -) 17 gm PO DAILY [facility] Last Admin: 04/16/17 09:40 Dose: Not Given Senna (Senna -) 1 tab PO HS [facility] Last Admin: 04/15/17 22:11 Dose: Not Given Valacyclovir HCl (Valtrex -) 500 mg PO BID [facility] Last Admin: 04/16/17 09:43 Dose: 500 mg - Objective Vital Signs: Vital Signs Temperature 97.4 F L 04/16/17 10:00 Pulse Rate 48 L 04/16/17 10:00 Respiratory Rate 18 04/16/17 10:00 Blood Pressure 143/56 04/16/17 10:00 O2 Sat by Pulse Oximetry (%) 97 04/16/17 11:12 Constitutional: Yes: Calm Eyes: Yes: WNL HENT: Yes: WNL Neck: Yes: WNL Cardiovascular: Yes: Bradycardia, S1, S2, S4 Respiratory: Yes: WNL Gastrointestinal: Yes: Soft ...Rectal Exam: Yes: Deferred Genitourinary: Yes: Anuria Breast(s): Yes: WNL Musculoskeletal: Yes: WNL Extremities: Yes: WNL Edema: No Peripheral Pulses WNL: Yes Integumentary: Yes: WNL Neurological: Yes: WNL Psychiatric: Yes: WNL Labs: CBC, BMP 04/16/17 05:35 04/16/17 05:35 INR, PTT INR 1.16 (0.82-1.09) H 04/16/17 05:35 Fibrinogen 320.0 mg/dL (238-498) 04/16/17 05:35 - ....Imaging Other: Image Reviewed (telemetry: NSR: marked sinus bradycardia in early am) Problem List - Problems (1) Sepsis Assessment/Plan: Pneumonia leukocytosis; afebrile. 10 lb weight loss in past 6 months. Seldom has night sweats. Hematuria; hemoptysis; proteinuria; renal dysfunction. On multiple antibiotics per ID. Code(s): A41.9 - SEPSIS, UNSPECIFIED ORGANISM (2) Acute kidney injury Assessment/Plan: increasing Cr; hematuria and proteinuria. Hydration. As discussed with Dr. Hamilton, ASA was stopped in anticipation of renal biopsy. Code(s): N17.9 - ACUTE KIDNEY FAILURE, UNSPECIFIED (3) Cellulitis Code(s): L03.90 - CELLULITIS, UNSPECIFIED Qualifiers: Site of cellulitis: extremity Site of cellulitis of extremity: lower extremity Laterality: unspecified laterality Qualified Code(s): L03.119 - Cellulitis of unspecified part of limb (4) Elevated troponin Assessment/Plan: 0.11-->0.08; normal CK. No chest pain; no acute EKG changes. ECHO: normal LVEF; moderate bilateral atrial enlargement. Sepsis (PNA), CHF, muscle breakdown may contribute to rise in TNI. Multiple cardiac risks (age; diasatoic CHF; HTN; ?lipids; sedentary). Denies prior cardiac workup. Stress MIBI when stable, if not done recently. Total cholesterol 136 mg/dL; LDL cholesterol 79 mg/dL. Code(s): R74.8 - ABNORMAL LEVELS OF OTHER SERUM ENZYMES (5) Hypothyroid Assessment/Plan: TSH 19.1; free T3 mildly decreased. Levothyroxine dose increased to 112.5 ucg daily; f/u TFTs (marked sinus bradycardia). Code(s): E03.9 - HYPOTHYROIDISM, UNSPECIFIED (6) Wound infection Assessment/Plan: on antibiotics. Code(s): T14.8 - OTHER INJURY OF UNSPECIFIED BODY REGION L08.9 - LOCAL INFECTION OF THE SKIN AND SUBCUTANEOUS TISSUE, UNSP (7) Sinus bradycardia Assessment/Plan: Pt denies dizziness; she is chronically weak. F/u thyroid studies (levothyroxine recently increased in dose). Pantoprazole, Colace, and Zosyn may all cause slow heart rate (bradycardia in about 1% of pts on any of these medications; highest percentage is with women in her age group, in some studies); consider discontinuing or changing any or all, depending on clinical situation. Code(s): R00.1 - BRADYCARDIA, UNSPECIFIED
--- NOTE | 2017-04-16 13:43 | EKG ---
Test Reason : Blood Pressure : / mmHG Vent. Rate : 042 BPM Atrial Rate : 042 BPM P-R Int : 154 ms QRS Dur : 096 ms QT Int : 530 ms P-R-T Axes : 021 -17 009 degrees QTc Int : 442 ms MARKED SINUS BRADYCARDIA MODERATE VOLTAGE CRITERIA FOR LVH, MAY BE NORMAL VARIANT ABNORMAL ECG WHEN COMPARED WITH ECG OF 09-APR-2017 19:31, VENT. RATE HAS DECREASED BY 40 BPM T WAVE INVERSION NO LONGER EVIDENT IN ANTERIOR LEADS REPEAT EKG IF CLINICALLY INDICATED Confirmed by RADHA CHAPARRO MD ([id number]) on 04/16/2017 1:43:09 PM Referred By: SHAJI RUBIO DR Confirmed By:RADHA CHAPARRO MD
--- NOTE | 2017-04-16 16:11 | PN ---
Progress Note, Physician History of Present Illness: Pt seen and examined at bedside. She is awake and alert. She tolerated rehab. She says that she feels better today. - Current Medication List Current Medications: Active Medications Collagenase (Santyl -) 1 applic TP DAILY [facility] Last Admin: 04/16/17 09:43 Dose: 1 applic Docusate Sodium (Colace -) 100 mg PO BID [facility] Last Admin: 04/16/17 09:40 Dose: Not Given Gentamicin Sulfate (Garamycin 0.1% Ointment -) 1 applic TP DAILY [facility] Last Admin: 04/16/17 09:43 Dose: 1 applic Heparin Sodium (Porcine) (Heparin -) 5,000 unit SQ Q8H-IV [facility] Last Admin: 04/16/17 09:42 Dose: 5,000 unit Azithromycin (Zithromax 500mg Ivpb (Pre-Docked)) 250 mls @ 250 mls/hr IVPB DAILY [facility] Last Admin: 04/16/17 11:33 Dose: 250 mls/hr Piperacillin Sod/Tazobactam (Sod 2.25 gm/ Dextrose) 50 mls @ 100 mls/hr IVPB Q8H-IV [facility] PRN Reason: Protocol Last Admin: 04/16/17 09:41 Dose: 100 mls/hr Insulin Aspart (Novolog Vial Sliding Scale -) 0 vial SQ ACHS [facility] PRN Reason: Protocol Last Admin: 04/16/17 11:35 Dose: 10 unit Levothyroxine Sodium 100 mcg/ (Levothyroxine Sodium 12.5 mcg) 112.5 mcg PO DAILY@0700 [facility] Last Admin: 04/16/17 06:28 Dose: 112.5 mcg Ondansetron HCl (Zofran Injection) 4 mg IVPB Q6H PRN PRN Reason: NAUSEA Last Admin: 04/11/17 05:37 Dose: 4 mg Pantoprazole Sodium (Protonix -) 40 mg PO DAILY [facility] Last Admin: 04/16/17 09:43 Dose: 40 mg Polyethylene Glycol (Miralax (For Daily Use) -) 17 gm PO DAILY [facility] Last Admin: 04/16/17 09:40 Dose: Not Given Senna (Senna -) 1 tab PO HS [facility] Last Admin: 04/15/17 22:11 Dose: Not Given Valacyclovir HCl (Valtrex -) 500 mg PO BID [facility] Last Admin: 04/16/17 09:43 Dose: 500 mg - Objective Vital Signs: Vital Signs Temperature 97.6 F 04/16/17 14:00 Pulse Rate 43 L 04/16/17 14:00 Respiratory Rate 18 04/16/17 14:00 Blood Pressure 139/59 04/16/17 14:00 O2 Sat by Pulse Oximetry (%) 97 04/16/17 11:12 Constitutional: Yes: Calm Eyes: Yes: Conjunctiva Clear HENT: Yes: Atraumatic Cardiovascular: Yes: S1, S2 Respiratory: Yes: CTA Bilaterally, On Nasal O2 Gastrointestinal: Yes: Soft Genitourinary: Yes: WNL Musculoskeletal: Yes: WNL Edema: Yes Edema: LLE: Trace, RLE: Trace Neurological: Yes: Oriented Psychiatric: Yes: Oriented Labs: CBC, BMP 04/16/17 05:35 04/16/17 05:35 INR, PTT INR 1.16 (0.82-1.09) H 04/16/17 05:35 Fibrinogen 320.0 mg/dL (238-498) 04/16/17 05:35 Problem List - Problems (1) Acute kidney injury Code(s): N17.9 - ACUTE KIDNEY FAILURE, UNSPECIFIED (2) Cellulitis Code(s): L03.90 - CELLULITIS, UNSPECIFIED Qualifiers: Site of cellulitis: extremity Site of cellulitis of extremity: lower extremity Laterality: unspecified laterality Qualified Code(s): L03.119 - Cellulitis of unspecified part of limb (3) Hypothyroid Code(s): E03.9 - HYPOTHYROIDISM, UNSPECIFIED (4) Venous stasis of both lower extremities Code(s): I87.8 - OTHER SPECIFIED DISORDERS OF VEINS Assessment/Plan Current Medications Generic Name Dose Route Start Last Admin Trade Name Freq PRN Reason Stop Dose Admin Collagenase 1 applic 04/10/17 10:00 04/16/17 09:43 Santyl - TP 1 applic DAILY [facility] Administration Docusate Sodium 100 mg 04/10/17 10:00 04/16/17 09:40 Colace - PO Not Given BID [facility] Gentamicin Sulfate 1 applic 04/16/17 10:00 04/16/17 09:43 Garamycin 0.1% Ointment - TP 1 applic DAILY [facility] Administration Heparin Sodium (Porcine) 5,000 unit 04/09/17 18:00 04/16/17 09:42 Heparin - SQ 5,000 unit Q8H-IV [facility] Administration Azithromycin 250 mls @ 250 mls/hr 04/12/17 16:15 04/16/17 11:33 Zithromax 500mg Ivpb (Pre-Docked) IVPB 250 mls/hr DAILY [facility] Administration Piperacillin Sod/Tazobactam 50 mls @ 100 mls/hr 04/15/17 10:15 04/16/17 09:41 Sod 2.25 gm/ Dextrose IVPB 100 mls/hr Q8H-IV [facility] Administration Protocol Insulin Aspart 0 vial 04/16/17 11:00 04/16/17 11:35 Novolog Vial Sliding Scale - SQ 10 unit ACHS [facility] Administration Protocol Levothyroxine Sodium 100 mcg/ 112.5 mcg 04/13/17 07:00 04/16/17 06:28 Levothyroxine Sodium 12.5 mcg PO 112.5 mcg DAILY@0700 [facility] Administration Ondansetron HCl 4 mg 04/10/17 08:46 04/11/17 05:37 Zofran Injection IVPB 4 mg Q6H PRN Administration NAUSEA Pantoprazole Sodium 40 mg 04/14/17 11:45 04/16/17 09:43 Protonix - PO 40 mg DAILY [facility] Administration Polyethylene Glycol 17 gm 04/10/17 10:00 04/16/17 09:40 Miralax (For Daily Use) - PO Not Given DAILY [facility] Senna 1 tab 04/10/17 22:00 04/15/17 22:11 Senna - PO Not Given HS [facility] Valacyclovir HCl 500 mg 04/15/17 22:00 04/16/17 09:43 Valtrex - PO 500 mg BID [facility] Administration Impression 1. 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 lower extremity ulcer 3. hypothyroid 4. HTN 5. polymyalgia 6. anemia Plan - follow up cxr - renal function continues to worsen - cont steroids - renal workup in progress - discussed with rheum and cardiology today - kidney biopsy will be done on Saturday - aspirin is stopped Dr Hamilton
--- NOTE | 2017-04-16 16:32 | PN ---
Progress Note (short form) - Note Progress Note: resting in bed alert no hemoptysis continues to have leg pain Vital Signs Period Temp Pulse Resp BP Sys/Horn Pulse Ox Last 24 Hr 97.4 F-97.9 F 41-54 16-18 139-158/56-72 93-97 cor-rrr lungs decreased bs at bases abd soft,nt ext dressing intact (done this am- she doesnot want them removed) 2 small ulcers perianal -noted yesterday unchanged CBC, BMP Microbiology 04/15/17 10:00 Urine For Antigen Detection Legionella Antigen - Final 04/15/17 10:00 Urine For Antigen Detection Streptococcus pneumoniae Antigen (M - Final 04/15/17 11:24 Back Viral Culture - Preliminary 04/09/17 14:23 Blood - Peripheral Venous Blood Culture - Final NO GROWTH AFTER 5 DAYS INCUBATION 04/09/17 14:23 Blood - Peripheral Venous Blood Culture - Final NO GROWTH AFTER 5 DAYS INCUBATION 04/11/17 15:55 Rectal Swab VRE Culture - Final NO VREF ISOLATED 04/11/17 15:55 Nares - Mrsa Screen - Right MRSA Screen - Final NO MRSA ISOLATED 04/11/17 15:55 Nares - Mrsa Screen - Left MRSA Screen - Final NO MRSA ISOLATED 04/09/17 14:23 Ankle - Left Medial Gram Stain - Final 04/09/17 14:23 Ankle - Left Medial Wound Culture - Final Pseudomonas Aeruginosa Escherichia Coli Mr S Aureus 04/09/17 13:20 Urine - Urine Clean Catch Urine Culture - Final NO GROWTH OBTAINED 04/16/17 05:35 04/16/17 05:35 Laboratory Tests 04/11/17 04/11/17 04/14/17 07:00 16:30 07:00 ESR 105 H C-Reactive Protein 10.0 H KEELEY Homogeneous Pattern 1:320 H legionella antigen negative 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- vasculitis workup in progress, followed by pulmonary/rheum/renal suspect foot ulcers are vasculitis as well but still some erythema and drainage noted send legionella urinary antigen send sputum culture for renal biopsy adjust zosyn dosing for worsening renal function wound culture with MRSA, Pseudomonas completed 5 days zithromax, will d/c continue zosyn for now, check vanco level in am await serologies d/w rheumatology history of MRSA/pseudomonas-contact isolation anemia-for transfuson today small ulcers- ?secondary to diaper, ?hsv, viral culture sent, valtrex sent, unchanged Problem List - Problems (1) Cellulitis Code(s): L03.90 - CELLULITIS, UNSPECIFIED Qualifiers: Site of cellulitis: extremity Site of cellulitis of extremity: lower extremity Laterality: unspecified laterality Qualified Code(s): L03.119 - Cellulitis of unspecified part of limb (2) Acute kidney injury Code(s): N17.9 - ACUTE KIDNEY FAILURE, UNSPECIFIED
--- NOTE | 2017-04-16 18:57 | CONSULT ---
Consult Consult Specialty:: Endocrinology Referred by:: Cm Milian Reason for Consultation:: HYpothyroidism - History of Present Illness Chief Complaint: Hypothyroidism History of Present Illness: This is a 77 year old female with h/o borderline hypertension, polymyalgia rheumatica and hypothyroidism, admitted with chronic venous stasis and ulcer of right ankle and pain, redness and drainage from a new wound on the lateral left ankle area. She developed hemoptysis and active urinary sediment with proteinuria and hematuria. Prior to admission she was treated for presumed pneumonia for SOB with antibiotics and Solumedrol. CT scan of the chest showed multifocal consolidation opacities in bilateral upper lobes, R>L with air bronchograms, very small pleural effusions, L>R. Mediastinal lymphadenopathy and right hilar lymphadenopathy. Pt found to have TSH of 19 and FT4 of 1.23 and LT4 dose increased from 100 to 112.5. Pt persist to have HR in the 40s. Pt says she has been on LT4 100mcg for many years with good control. About a week prior to admission to the hospital she was taking care of her grandmother in hospice and forgot to take LT4 for about 4 ot 5 days. Denies any heat or cold intolerance. - History Source History Provided By: Patient, Medical Record Limitations to Obtaining History: No Limitations - Past Medical History Cardio/Vascular: Yes: HTN Pulmonary: Yes: Pneumonia Renal/: Yes: Renal Inusuff ...: No Rheumatology: Yes: Other (Polymyalgia rheumatica) Endocrine: Yes: Hypothyroidism Dermatology: Yes: Other (open LE wounds) - Past Surgical History Additional Surgical History: excision debridement of right ankle ulcer 2013 - Alcohol/Substance Use Hx Alcohol Use: No - Smoking History Smoking history: Never smoked Have you smoked in the past 12 months: No If you are a former smoker, when did you quit?: 30 years ago Home Medications - Allergies Allergies/Adverse Reactions: Allergies Allergy/AdvReac Type Severity Reaction Status Date / Time Sulfa (Sulfonamide Allergy Severe Verified 04/09/17 12:43 Antibiotics) - Home Medications Home Medications: Ambulatory Orders Levothyroxine [Synthroid -] 100 mcg PO DAILY 03/23/14 Family Disease History - Family Disease History Family Disease History: Diabetes: Mother, Brother Review of Systems - Review of Systems Constitutional: reports: No Symptoms Eyes: reports: No Symptoms HENT: reports: No Symptoms Neck: reports: No Symptoms Cardiovascular: reports: No Symptoms Respiratory: reports: No Symptoms Gastrointestinal: reports: No Symptoms Genitourinary: reports: No Symptoms Breasts: reports: No Symptoms Reported Musculoskeletal: reports: No Symptoms Neurological: reports: No Symptoms Endocrine: reports: No Symptoms Hematology/Lymphatic: reports: No Symptoms Physical Exam Vital Signs: Vital Signs Temperature 97.6 F 04/16/17 14:00 Pulse Rate 43 L 04/16/17 14:00 Respiratory Rate 18 04/16/17 14:00 Blood Pressure 139/59 04/16/17 14:00 O2 Sat by Pulse Oximetry (%) 97 04/16/17 11:12 Constitutional: Yes: No Distress, Calm Eyes: Yes: Conjunctiva Clear, EOM Intact HENT: Yes: Atraumatic, Normocephalic Neck: Yes: Supple, Trachea Midline Cardiovascular: Yes: Regular Rate and Rhythm Respiratory: Yes: Regular, CTA Bilaterally Gastrointestinal: Yes: Normal Bowel Sounds, Soft Musculoskeletal: Yes: WNL Extremities: Yes: Other (Dressing both legs) Edema: No Neurological: Yes: Alert, Oriented Labs: CBC, BMP 04/16/17 05:35 04/16/17 05:35 Assessment/Plan AP; Hypothyroidism: chemically hypothyroid probably secondary to non compliance with medication 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
[2017-04-16] MEDS ORDERED: INSULIN (NOVOLOG) ASPART 100 UNITS/ML 10ML VIAL SQ ONE (23:24)
--- NOTE | 2017-04-16 23:26 | HOSP ---
Physical Examination Vital Signs: Vital Signs Temperature 97.7 F 04/16/17 22:00 Pulse Rate 48 L 04/16/17 22:00 Respiratory Rate 20 04/16/17 22:00 Blood Pressure 144/64 04/16/17 22:00 O2 Sat by Pulse Oximetry (%) 97 04/16/17 11:12 Labs: CBC, BMP 04/16/17 05:35 04/16/17 05:35
[2017-04-17] MEDS ORDERED: PIPERACILLIN/TAZOBACTAM 2.25 GM VIAL IVPB ONE ×2 (01:11→09:43)
[2017-04-17] MEDS ORDERED: DEXTROSE 5%-WATER - 50 ML IVPB ONE ×2 (01:12→09:43)
[2017-04-17] MEDS: PIPERACILLIN/TAZOB 2.25 GM 2.25 GM in DEXTROSE 5%-WATER - 50 ML IVPB SCH ×2 (01:42→10:17)
[2017-04-17] MEDS: HEPARIN NA (PORCINE) 5,000 UNITS/ML 1ML VIAL SQ SCH ×3 (01:42→17:05)
[2017-04-17] MEDS ORDERED: LEVOTHYROXINE NA 25 MCG TABLET (FP) ONE (06:11)
[2017-04-17] MEDS ORDERED: LEVOTHYROXINE NA 100 MCG TABLET (FP) ONE (06:11)
[2017-04-17] MEDS: LEVOTHYROXINE PO SCH (06:14)
[2017-04-17] MEDS: INSULIN SLIDING SCALE (NOVOLOG) 1 VIAL SQ SCH ×4 (06:14→22:02)
[2017-04-17 07:48] LABS: BASOPHIL 0.2 % (0-2.0); MCH 28.7 pg (25.7-33.7); MCHC 33.3 g/dl (32.0-36.0); MEAN CELL VOLUME 85.9 fl (80-96); MEAN PLT VOLUME 8.1 fl (7.5-11.1); NEUTROPHILS 88.5 % (42.8-82.8); PLATELET COUNT 341 K/MM3 (134-434); RDW 15.7 % (11.6-15.6); WHITE BLOOD COUNT 10.3 K/mm3 (4.0-10.0)
[2017-04-17 08:29] LABS: ALBUMIN 2.5 g/dl (3.4-5.0); ALK PHOS 78 U/L (45-117); ANION GAP 12 (8-16); BILIRUBIN,TOTAL 0.6 mg/dL (0.2-1.0); CALCIUM 8.4 mg/dL (8.5-10.1); CO2 24 mmol/L (21-32); CREATININE 2.9 mg/dL (0.55-1.02); GLUCOSE,RANDOM 203 mg/dL (74-106); SGOT/AST 9 U/L (15-37); SGPT/ALT 27 U/L (12-78); THYROID STIMULATING HORMONE 1.91 uIU/ml (0.358-3.74); TOT PROT 6.4 g/dl (6.4-8.2)
[2017-04-17 08:55] LABS: FREE T4 1.93 ng/dl (0.76-1.46)
--- NOTE | 2017-04-17 09:21 | PN ---
Progress Note (short form) - Note Progress Note: Feels better No complaints Blood sugar >300 yesterday Vital Signs Period Temp Pulse Resp BP Sys/Horn Pulse Ox Last 24 Hr 97.4 F-97.8 F 40-48 18-20 139-156/56-96 97-97 PE: AO3 NecK: Supple, No JVD HEENT: PERRL, EOMI Lungs: CTA CVS: S1S2 Abd: Benign Ext: No edema, Dressing both legs Neuro: No focal deficit CMP Sodium 140 mmol/L (136-145) 04/17/17 06:20 Potassium 3.8 mmol/L (3.5-5.1) 04/17/17 06:20 Chloride 104 mmol/L (98-107) 04/17/17 06:20 Carbon Dioxide 24 mmol/L (21-32) 04/17/17 06:20 Anion Gap 12 (8-16) 04/17/17 06:20 BUN 67 mg/dL (7-18) H 04/17/17 06:20 Creatinine 2.9 mg/dL (0.55-1.02) H 04/17/17 06:20 Creat Clearance w eGFR 15.78 (>60) 04/17/17 06:20 POC Glucometer 324 UNITS (()) 04/17/17 06:04 Random Glucose 203 mg/dL (74-106) H D 04/17/17 06:20 Lactic Acid 0.9 mmol/L (0.4-2.0) 04/12/17 18:30 Calcium 8.4 mg/dL (8.5-10.1) L 04/17/17 06:20 Magnesium 2.5 mg/dL (1.8-2.4) H 04/16/17 05:35 Iron 13 ug/dL (27-139) L 04/12/17 14:10 TIBC 163 ug/dL (250-450) L 04/12/17 14:10 Iron Saturation 8 % (15-55) L 04/12/17 14:10 Transferrin 127 mg/dL (200-370) L 04/12/17 14:10 Ferritin Cancelled 04/12/17 14:10 Total Bilirubin 0.6 mg/dL (0.2-1.0) 04/17/17 06:20 AST 9 U/L (15-37) L D 04/17/17 06:20 ALT 27 U/L (12-78) 04/17/17 06:20 Alkaline Phosphatase 78 U/L (45-117) 04/17/17 06:20 LD Total 201 U/L (84-246) 04/13/17 06:15 Creatine Kinase 95 IU/L (26-192) 04/10/17 06:10 Creatine Kinase Index 0.5 % (0.0-5.0) 04/09/17 14:23 CK-MB (CK-2) 1.031 ng/mL (0.5-3.6) 04/09/17 14:23 Troponin I 0.08 ng/ml (0.00-0.05) H 04/10/17 06:10 C-Reactive Protein 10.0 MG/DL (0.00-0.3) H 04/11/17 07:00 Total Protein 6.4 g/dl (6.4-8.2) 04/17/17 06:20 Albumin 2.5 g/dl (3.4-5.0) L 04/17/17 06:20 Triglycerides 133 mg/dL (35-160) 04/11/17 06:00 Cholesterol 136 mg/dL (50-200) 04/11/17 06:00 Total LDL Cholesterol 79 mg/dL (5-100) 04/11/17 06:00 HDL Cholesterol 31 mg/dL (40-60) L 04/11/17 06:00 TSH 1.91 uIU/ml (0.358-3.74) D 04/17/17 06:20 Free T4 1.93 ng/dl (0.76-1.46) H D 04/17/17 06:20 Free T3 1.7 pg/ml (2.0-4.4) L 04/11/17 11:03 Current Medications Generic Name Dose Route Start Last Admin Trade Name Byron PRN Reason Stop Dose Admin Collagenase 1 applic 04/10/17 10:00 04/16/17 09:43 Santyl - TP 1 applic DAILY [facility] Administration Gentamicin Sulfate 1 applic 04/16/17 10:00 04/16/17 09:43 Garamycin 0.1% Ointment - TP 1 applic DAILY [facility] Administration Heparin Sodium (Porcine) 5,000 unit 04/09/17 18:00 04/17/17 01:42 Heparin - SQ 5,000 unit Q8H-IV [facility] Administration Piperacillin Sod/Tazobactam 50 mls @ 100 mls/hr 04/15/17 10:15 04/17/17 01:42 Sod 2.25 gm/ Dextrose IVPB 100 mls/hr Q8H-IV [facility] Administration Protocol Insulin Aspart 1 vial 04/17/17 07:36 Novolog Vial Sliding Scale - SQ ACHS [facility] Protocol Levothyroxine Sodium 100 mcg/ 112.5 mcg 04/13/17 07:00 04/17/17 06:14 Levothyroxine Sodium 12.5 mcg PO 112.5 mcg DAILY@0700 [facility] Administration Polyethylene Glycol 17 gm 04/10/17 10:00 04/16/17 09:40 Miralax (For Daily Use) - PO Not Given DAILY [facility] Valacyclovir HCl 500 mg 04/15/17 22:00 04/16/17 21:07 Valtrex - PO 500 mg BID [facility] Administration AP: Hypothyroidism: Normalization of TSH with slightly high FT4 of 1.93 Earlier high TSH secondary to missing doses for few days Will decrease LT4 to 100mcG QD Hyperglycemia sec to IV steroid Monitor BGM with Novolog Coverage as necessary Renal Insufficiency: for Biopsy on Saturday Anemia Lower extremity ulcer
--- NOTE | 2017-04-17 09:37 | PN ---
Physical Exam: PULMONARY SUBJECTIVE: Patient seen and examined. States she had good night sleep, denies cough, CP, SOB. Denies hemoptysis. OBJECTIVE: Vital Signs Period Temp Pulse Resp BP Sys/Horn Pulse Ox Last 24 Hr 97.4 F-97.8 F 40-48 18-20 139-156/56-96 97-97 GEN: AAOx3, NAD, Sitting comfortably in bed HENT: PERRLA, EOMi CV: S1, S2, bradycardic rate LUNG: Decreased breath sounds at bases, otherwise clear ABD: Soft, NT, ND, normoactive BS MSK: B/L 2+ pitting edema, legs wrapped Laboratory Last Values WBC 10.3 K/mm3 (4.0-10.0) H 04/17/17 06:20 RBC 3.40 M/mm3 (3.60-5.2) L 04/17/17 06:20 Hgb 9.7 GM/dL (10.7-15.3) L 04/17/17 06:20 Hct 29.2 % (32.4-45.2) L 04/17/17 06:20 MCV 85.9 fl (80-96) 04/17/17 06:20 MCH 28.7 pg (25.7-33.7) 04/17/17 06:20 MCHC 33.3 g/dl (32.0-36.0) 04/17/17 06:20 RDW 15.7 % (11.6-15.6) H 04/17/17 06:20 Plt Count 341 K/MM3 (134-434) 04/17/17 06:20 MPV 8.1 fl (7.5-11.1) 04/17/17 06:20 Neutrophils % 88.5 % (42.8-82.8) H 04/17/17 06:20 Lymphocytes % 7.2 % (8-40) L 04/17/17 06:20 Monocytes % 4.1 % (3.8-10.2) 04/17/17 06:20 Eosinophils % 0.0 % (0-4.5) 04/17/17 06:20 Basophils % 0.2 % (0-2.0) 04/17/17 06:20 Basophilic Stippling 1+ 04/15/17 06:30 ESR 105 mm/hr (0-30) H 04/14/17 07:00 Haptoglobin 431 mg/dL (34-200) H 04/13/17 07:30 PT with INR 12.80 SEC (9.98-11.88) H 04/16/17 05:35 INR 1.16 (0.82-1.09) H 04/16/17 05:35 PTT (Actin FS) 33.6 SECONDS (26.9-34.4) 04/16/17 05:35 Fibrinogen 320.0 mg/dL (238-498) 04/16/17 05:35 Puncture Site Left radial 04/12/17 16:50 ABG pH 7.43 (7.35-7.45) 04/12/17 16:50 ABG pCO2 at Pt Temp 37.1 mmHg (35-45) 04/12/17 16:50 ABG pO2 at Pt Temp 50.8 mmHg (70-100) L 04/12/17 16:50 ABG HCO3 24.1 meq/L (22-26) 04/12/17 16:50 ABG O2 Sat (Measured) 85.9 % (90-98.9) L 04/12/17 16:50 ABG O2 Content 10.4 % vol (15-22) L 04/12/17 16:50 ABG Base Excess 0.4 meq/l (-2-2) 04/12/17 16:50 Aaron Test Positive 04/12/17 16:50 Oxygen Flow Rate room air 04/12/17 16:50 PEEP 0.0 cmH2O 04/12/17 16:50 Sodium 140 mmol/L (136-145) 04/17/17 06:20 Potassium 3.8 mmol/L (3.5-5.1) 04/17/17 06:20 Chloride 104 mmol/L (98-107) 04/17/17 06:20 Carbon Dioxide 24 mmol/L (21-32) 04/17/17 06:20 Anion Gap 12 (8-16) 04/17/17 06:20 BUN 67 mg/dL (7-18) H 04/17/17 06:20 Creatinine 2.9 mg/dL (0.55-1.02) H 04/17/17 06:20 Creat Clearance w eGFR 15.78 (>60) 04/17/17 06:20 POC Glucometer 324 UNITS (()) 04/17/17 06:04 Random Glucose 203 mg/dL (74-106) H D 04/17/17 06:20 Lactic Acid 0.9 mmol/L (0.4-2.0) 04/12/17 18:30 Calcium 8.4 mg/dL (8.5-10.1) L 04/17/17 06:20 Magnesium 2.5 mg/dL (1.8-2.4) H 04/16/17 05:35 Iron 13 ug/dL (27-139) L 04/12/17 14:10 TIBC 163 ug/dL (250-450) L 04/12/17 14:10 Iron Saturation 8 % (15-55) L 04/12/17 14:10 Transferrin 127 mg/dL (200-370) L 04/12/17 14:10 Ferritin Cancelled 04/12/17 14:10 Total Bilirubin 0.6 mg/dL (0.2-1.0) 04/17/17 06:20 AST 9 U/L (15-37) L D 04/17/17 06:20 ALT 27 U/L (12-78) 04/17/17 06:20 Alkaline Phosphatase 78 U/L (45-117) 04/17/17 06:20 LD Total 201 U/L (84-246) 04/13/17 06:15 Creatine Kinase 95 IU/L (26-192) 04/10/17 06:10 Creatine Kinase Index 0.5 % (0.0-5.0) 04/09/17 14:23 CK-MB (CK-2) 1.031 ng/mL (0.5-3.6) 04/09/17 14:23 Troponin I 0.08 ng/ml (0.00-0.05) H 04/10/17 06:10 C-Reactive Protein 10.0 MG/DL (0.00-0.3) H 04/11/17 07:00 Total Protein 6.4 g/dl (6.4-8.2) 04/17/17 06:20 Albumin 2.5 g/dl (3.4-5.0) L 04/17/17 06:20 Triglycerides 133 mg/dL (35-160) 04/11/17 06:00 Cholesterol 136 mg/dL (50-200) 04/11/17 06:00 Total LDL Cholesterol 79 mg/dL (5-100) 04/11/17 06:00 HDL Cholesterol 31 mg/dL (40-60) L 04/11/17 06:00 TSH 1.91 uIU/ml (0.358-3.74) D 04/17/17 06:20 Free T4 1.93 ng/dl (0.76-1.46) H D 04/17/17 06:20 Free T3 1.7 pg/ml (2.0-4.4) L 04/11/17 11:03 Urine Color Ltyellow 04/16/17 09:00 Urine Appearance Cloudy 04/16/17 09:00 Urine pH 5.0 (5.0-8.0) 04/16/17 09:00 Ur Specific [place] 1.020 (1.005-1.025) 04/16/17 09:00 Urine Protein 2+ (NEGATIVE) H 04/16/17 09:00 Urine Glucose (UA) 2+ (NEGATIVE) H 04/16/17 09:00 Urine Ketones Negative (NEGATIVE) 04/16/17 09:00 Urine Blood 3+ (NEGATIVE) H 04/16/17 09:00 Urine Nitrite Negative (NEGATIVE) 04/16/17 09:00 Urine Bilirubin Negative (NEGATIVE) 04/16/17 09:00 Urine Urobilinogen Negative mg/dL (0.2-1.0) 04/16/17 09:00 Urine RBC 76 /hpf (0-3) 04/16/17 09:00 Urine WBC 30 /hpf (3-5) 04/16/17 09:00 Ur Epithelial Cells Moderate /hpf (FEW) 04/16/17 09:00 Hyaline Casts 4 /lpf 04/16/17 09:00 Granular Casts 4 /lpf 04/16/17 09:00 Urine Mucus Rare 04/16/17 09:00 Urine Yeast Rare 04/16/17 09:00 Urine Eosinophils None seen % (.) 04/15/17 10:00 U Random Total Protein 104 mg/dl (5-11.9) H 04/12/17 09:00 Ur Random Sodium 68 MMOL/L 04/12/17 10:30 Ur Random Potassium 37.2 MMOL/L 04/12/17 10:30 Ur Random Chloride 82 MMOL/L 04/12/17 10:30 Ur Random Urea Nitrogn 571 mg/dL 04/12/17 09:00 Urine Creatinine 89.5 mg/dL (20-320) 04/12/17 10:30 Protein/Creatinin Ratio 0.97 MG/DL 04/12/17 09:00 Stool Occult Blood Negative (NEGATIVE) 04/13/17 11:30 Random Vancomycin 11.499 ug/ml 04/17/17 06:20 KEELEY Screen Positive (.) H 04/11/17 16:30 KEELEY Homogeneous Pattern 1:320 (.) H 04/11/17 16:30 KEELEY Nucleolar Pattern 1:320 (.) H 04/11/17 16:30 KEELEY Speckled Pattern TNP 04/11/17 16:30 KEELEY Centromere Pattern TNP 04/11/17 16:30 Double Strand DNA Ab <1 IU/mL (0-9) 04/11/17 16:30 Tot Complement (CH50) > 65 U/mL (42-60) H 04/14/17 07:00 Blood Type O POSITIVE 04/15/17 09:00 Antibody Screen Positive H 04/15/17 09:00 Antibody Identification TNP 04/15/17 09:00 Crossmatch See Detail 04/15/17 09:00 Active Medications Generic Name Dose Route Start Last Admin Trade Name Freq PRN Reason Stop Dose Admin Collagenase 1 applic 04/10/17 10:00 04/16/17 09:43 Santyl - TP 1 applic DAILY [facility] Administration Gentamicin Sulfate 1 applic 04/16/17 10:00 04/16/17 09:43 Garamycin 0.1% Ointment - TP 1 applic DAILY [facility] Administration Heparin Sodium (Porcine) 5,000 unit 04/09/17 18:00 04/17/17 01:42 Heparin - SQ 5,000 unit Q8H-IV [facility] Administration Piperacillin Sod/Tazobactam 50 mls @ 100 mls/hr 04/15/17 10:15 04/17/17 01:42 Sod 2.25 gm/ Dextrose IVPB 100 mls/hr Q8H-IV [facility] Administration Protocol Insulin Aspart 1 vial 04/17/17 07:36 Novolog Vial Sliding Scale - SQ ACHS [facility] Protocol Levothyroxine Sodium 100 mcg 04/18/17 07:00 Synthroid - PO DAILY@0700 [facility] Polyethylene Glycol 17 gm 04/10/17 10:00 04/16/17 09:40 Miralax (For Daily Use) - PO Not Given DAILY [facility] Valacyclovir HCl 500 mg 04/15/17 22:00 04/16/17 21:07 Valtrex - PO 500 mg BID [facility] Administration ASSESSMENT/PLAN: Ms. Chiang is a 77yo F with PMHx of Polymyalgia rheumatica, HTN, Hypothyroidism , admitted for bilateral lower extremity cellulitis. During the hospitalization , she developed hemoptysis, SOB, and hypoxia (86% on RA). 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 We will continue to follow Osorio Wilson MD - PGY1 Internal Medicine Visit type - Emergency Visit Emergency Visit: No - New Patient This patient is new to me today: No - Critical Care Critical Care patient: No
--- NOTE | 2017-04-17 09:52 | PN ---
Physical Exam: CONSULT: RENAL SUBJECTIVE: Patient seen and examined at bed side. Has no complaints. Feels much better than yesterday. Denies chest pain, sob, cough, palpitation, abdominal pain, nausea or vomiting. Moved her bowel this morning. Patient mentions she walked with the physical therapy yesterday, was able to walk few steps with a walker. No acute events overnight. OBJECTIVE: Vital Signs Period Temp Pulse Resp BP Sys/Horn Pulse Ox Last 24 Hr 97.4 F-97.8 F 40-48 18-20 139-156/56-96 97-97 GENERAL: Patient is sitting comfortably in bed, awake, alert, and fully oriented , in no acute distress, nasal canula in place. HEAD: Normal with no signs of trauma. EYES: EOM intact, no pallor or icterus. ENT: Ears normal, moist mucous membranes. NECK: Supple. LUNGS: Breath sounds equal, clear to auscultation bilaterally, no wheezes, no crackles, no accessory muscle use. HEART: Bradycardic, Regular rate and rhythm, S1, S2 without murmur. ABDOMEN: Soft, nontender, nondistended, normoactive bowel sounds, no guarding, no rebound, no hepatosplenomegaly, no masses. UPPER EXTREMITIES: 2+ pulses, warm, well-perfused, no edema. LOWER EXTREMITIES: Right: 6.2 cm x 3.8 cm healing ulcer in the medial aspect of the LE. Left: Multiple small healing ulcers. 2+ pulses, warm, well-perfused, b/l pitting edema. NEUROLOGICAL: No facial droop. Normal speech, gait not observed. PSYCH: Normal mood, normal affect. SKIN: B/L dressing applied in the lower extremities, Warm, dry, normal turgor, no rashes or lesions noted Laboratory Results - last 24 hr 04/15/17 04/16/17 04/16/17 10:00 09:00 11:34 WBC RBC Hgb Hct MCV MCH MCHC RDW Plt Count MPV Neutrophils % Lymphocytes % Monocytes % Eosinophils % Basophils % Sodium Potassium Chloride Carbon Dioxide Anion Gap BUN Creatinine Creat Clearance w eGFR POC Glucometer 373 Random Glucose Calcium Total Bilirubin AST ALT Alkaline Phosphatase Total Protein Albumin TSH Free T4 Urine Color Ltyellow Urine Appearance Cloudy Urine pH 5.0 Ur Specific [place] 1.020 Urine Protein 2+ H Urine Glucose (UA) 2+ H Urine Ketones Negative Urine Blood 3+ H Urine Nitrite Negative Urine Bilirubin Negative Urine Urobilinogen Negative Urine RBC 76 Urine WBC 30 Ur Epithelial Cells Moderate Hyaline Casts 4 Granular Casts 4 Urine Mucus Rare Urine Yeast Rare Urine Eosinophils None seen Random Vancomycin 04/16/17 04/16/17 04/16/17 17:12 21:00 23:14 WBC RBC Hgb Hct MCV MCH MCHC RDW Plt Count MPV Neutrophils % Lymphocytes % Monocytes % Eosinophils % Basophils % Sodium Potassium Chloride Carbon Dioxide Anion Gap BUN Creatinine Creat Clearance w eGFR POC Glucometer 357 413 424 Random Glucose Calcium Total Bilirubin AST ALT Alkaline Phosphatase Total Protein Albumin TSH Free T4 Urine Color Urine Appearance Urine pH Ur Specific [place] Urine Protein Urine Glucose (UA) Urine Ketones Urine Blood Urine Nitrite Urine Bilirubin Urine Urobilinogen Urine RBC Urine WBC Ur Epithelial Cells Hyaline Casts Granular Casts Urine Mucus Urine Yeast Urine Eosinophils Random Vancomycin 04/17/17 04/17/17 04/17/17 01:21 06:04 06:20 WBC RBC Hgb Hct MCV MCH MCHC RDW Plt Count MPV Neutrophils % Lymphocytes % Monocytes % Eosinophils % Basophils % Sodium Potassium Chloride Carbon Dioxide Anion Gap BUN Creatinine Creat Clearance w eGFR POC Glucometer 333 324 Random Glucose Calcium Total Bilirubin AST ALT Alkaline Phosphatase Total Protein Albumin TSH Free T4 Urine Color Urine Appearance Urine pH Ur Specific [place] Urine Protein Urine Glucose (UA) Urine Ketones Urine Blood Urine Nitrite Urine Bilirubin Urine Urobilinogen Urine RBC Urine WBC Ur Epithelial Cells Hyaline Casts Granular Casts Urine Mucus Urine Yeast Urine Eosinophils Random Vancomycin 11.499 04/17/17 04/17/17 04/17/17 06:20 06:20 06:20 WBC 10.3 H RBC 3.40 L Hgb 9.7 L Hct 29.2 L MCV 85.9 MCH 28.7 MCHC 33.3 RDW 15.7 H Plt Count 341 MPV 8.1 Neutrophils % 88.5 H Lymphocytes % 7.2 L Monocytes % 4.1 Eosinophils % 0.0 Basophils % 0.2 Sodium 140 Potassium 3.8 Chloride 104 Carbon Dioxide 24 Anion Gap 12 BUN 67 H Creatinine 2.9 H Creat Clearance w eGFR 15.78 POC Glucometer Random Glucose 203 H D Calcium 8.4 L Total Bilirubin 0.6 AST 9 L D ALT 27 Alkaline Phosphatase 78 Total Protein 6.4 Albumin 2.5 L TSH 1.91 D Free T4 1.93 H D Cancelled Urine Color Urine Appearance Urine pH Ur Specific [place] Urine Protein Urine Glucose (UA) Urine Ketones Urine Blood Urine Nitrite Urine Bilirubin Urine Urobilinogen Urine RBC Urine WBC Ur Epithelial Cells Hyaline Casts Granular Casts Urine Mucus Urine Yeast Urine Eosinophils Random Vancomycin Active Medications Generic Name Dose Route Start Last Admin Trade Name Julioq PRN Reason Stop Dose Admin Collagenase 1 applic 04/10/17 10:00 04/16/17 09:43 Santyl - TP 1 applic DAILY [facility] Administration Gentamicin Sulfate 1 applic 04/16/17 10:00 04/16/17 09:43 Garamycin 0.1% Ointment - TP 1 applic DAILY [facility] Administration Heparin Sodium (Porcine) 5,000 unit 04/09/17 18:00 04/17/17 01:42 Heparin - SQ 5,000 unit Q8H-IV [facility] Administration Piperacillin Sod/Tazobactam 50 mls @ 100 mls/hr 04/15/17 10:15 04/17/17 01:42 Sod 2.25 gm/ Dextrose IVPB 100 mls/hr Q8H-IV [facility] Administration Protocol Insulin Aspart 1 vial 04/17/17 07:36 Novolog Vial Sliding Scale - SQ ACHS [facility] Protocol Levothyroxine Sodium 100 mcg 04/18/17 07:00 Synthroid - PO DAILY@0700 [facility] Polyethylene Glycol 17 gm 04/10/17 10:00 04/16/17 09:40 Miralax (For Daily Use) - PO Not Given DAILY [facility] Valacyclovir HCl 500 mg 04/15/17 22:00 04/16/17 21:07 Valtrex - PO 500 mg BID [facility] Administration Patient is a 77 year- old- female with a past medical history of of non healing chronic RLE venous ulcer, borderline hypertension, polymyalgia, hypothyroidism, sent to ED by Dr. Silvestre for b/l lower extremity cellulitis. ASSESSMENT 1. 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 Bradycardia 4. Hyperglycemia secondary to steroid use 5. Cellulitis of bilateral lower extremity 6. Hypothyroidism 7. B/L Infiltrates 8. 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 Has multiorgan involvement-Worsening kidney function, creatinine 2.9 today, lower ext ulcers, 2 episodes of hemoptysis during hospitalization, CT chest showed new onset infiltrates, all these symptoms are suggestive of vasculitis process likely Goodpasture To confirm the diagnosis:kidney biopsy on Saturday (Aspirin on hold, today is the second day) Off steroids, plan is to discuss with rheum to give pulsed steroids. Repeat BMP in am. Thank you for the consultative opportunity. Case to be discussed with Dr. Hamilton. Visit type - Emergency Visit Emergency Visit: Yes ED Registration Date: 04/09/17 Care time: The patient presented to the Emergency Department on the above date and was hospitalized for further evaluation of their emergent condition. - New Patient This patient is new to me today: Yes Date on this admission: 04/17/17 - Critical Care Critical Care patient: No - Discharge Referral Referred to [facility] Med P.C.: No
[2017-04-17] MEDS: valACYclovir HCL 500 MG TABLET (FP) PO SCH ×2 (10:17→22:01)
[2017-04-17] MEDS: POLYETHYLENE GLYCOL 3350 119 GM BTL PO SCH (10:18)
[2017-04-17] MEDS: COLLAGENASE CLOSTRIDIUM HIST. 30 GRAMS TUBE TP SCH (10:52)
[2017-04-17] MEDS: GENTAMICIN SO4 0.1% TOPICAL OINTMENT 15 GM/TUBE TUBE TP SCH (10:52)
--- NOTE | 2017-04-17 11:18 | PN ---
Progress Note, Physician History of Present Illness: 87-year-old black female sent in by Dr. Silvestre for evaluation of nonhealing chronic lower extremity wounds now suggestive of cellulitis. Patient states was seen earlier this week and then again today for redness and swelling of the thumb, bilateral lower extremity wounds and swelling, now with a draining wound to the side of left ankle. Patient denies fever, chills but does state pain and redness to the area. Patient states had an ultrasound a few days ago which was negative for DVT. Patient does have history of MRSA. Patient also states history of chronic venous stasis. - Current Medication List Current Medications: Active Medications Collagenase (Santyl -) 1 applic TP DAILY [facility] Last Admin: 04/17/17 10:52 Dose: 1 applic Gentamicin Sulfate (Garamycin 0.1% Ointment -) 1 applic TP DAILY [facility] Last Admin: 04/17/17 10:52 Dose: 1 applic Heparin Sodium (Porcine) (Heparin -) 5,000 unit SQ Q8H-IV [facility] Last Admin: 04/17/17 10:17 Dose: 5,000 unit Piperacillin Sod/Tazobactam (Sod 2.25 gm/ Dextrose) 50 mls @ 100 mls/hr IVPB Q8H-IV [facility] PRN Reason: Protocol Last Admin: 04/17/17 10:17 Dose: 100 mls/hr Insulin Aspart (Novolog Vial Sliding Scale -) 1 vial SQ ACHS [facility] PRN Reason: Protocol Levothyroxine Sodium (Synthroid -) 100 mcg PO DAILY@0700 [facility] Polyethylene Glycol (Miralax (For Daily Use) -) 17 gm PO DAILY [facility] Last Admin: 04/17/17 10:18 Dose: Not Given Valacyclovir HCl (Valtrex -) 500 mg PO BID [facility] Last Admin: 04/17/17 10:17 Dose: 500 mg - Objective Vital Signs: Vital Signs Temperature 97.8 F 04/17/17 06:00 Pulse Rate 43 L 04/17/17 06:00 Respiratory Rate 20 04/17/17 06:00 Blood Pressure 156/68 04/17/17 06:00 O2 Sat by Pulse Oximetry (%) 97 04/16/17 22:00 Eyes: Yes: WNL, Conjunctiva Clear, EOM Intact HENT: Yes: WNL, Atraumatic, Normocephalic Neck: Yes: WNL, Supple, Trachea Midline Cardiovascular: Yes: WNL, Regular Rate and Rhythm Respiratory: Yes: WNL, Regular, CTA Bilaterally Gastrointestinal: Yes: WNL, Normal Bowel Sounds Genitourinary: Yes: WNL Musculoskeletal: Yes: WNL Extremities: Yes: WNL Edema: No Integumentary: Yes: WNL Neurological: Yes: WNL, Alert, Oriented ...Motor Strength: WNL Psychiatric: Yes: WNL Labs: CBC, BMP 04/17/17 06:20 04/17/17 06:20 INR, PTT INR 1.16 (0.82-1.09) H 04/16/17 05:35 Fibrinogen 320.0 mg/dL (238-498) 04/16/17 05:35 Assessment/Plan Assessment/Plan: Pneumonia leukocytosis; afebrile. 10 lb weight loss in past 6 months. Seldom has night sweats. Hematuria; hemoptysis; proteinuria; renal dysfunction. On multiple antibiotics per ID. Code(s): A41.9 - SEPSIS, UNSPECIFIED ORGANISM (2) Acute kidney injury Assessment/Plan: increasing Cr; hematuria and proteinuria. Hydration. As discussed with Dr. Hamilton, ASA was stopped in anticipation of renal biopsy. Code(s): N17.9 - ACUTE KIDNEY FAILURE, UNSPECIFIED (3) Cellulitis Code(s): L03.90 - CELLULITIS, UNSPECIFIED Qualifiers: Site of cellulitis: extremity Site of cellulitis of extremity: lower extremity Laterality: unspecified laterality Qualified Code(s): L03.119 - Cellulitis of unspecified part of limb (4) Elevated troponin Assessment/Plan: 0.11-->0.08; normal CK. No chest pain; no acute EKG changes. ECHO: normal LVEF; moderate bilateral atrial enlargement. Sepsis (PNA), CHF, muscle breakdown may contribute to rise in TNI. Multiple cardiac risks (age; diasatoic CHF; HTN; ?lipids; sedentary). Denies prior cardiac workup. Stress MIBI when stable, if not done recently. Total cholesterol 136 mg/dL; LDL cholesterol 79 mg/dL. Code(s): R74.8 - ABNORMAL LEVELS OF OTHER SERUM ENZYMES (5) Hypothyroid Assessment/Plan: TSH 19.1; free T3 mildly decreased. Levothyroxine dose increased to 112.5 ucg daily; f/u TFTs (marked sinus bradycardia). Code(s): E03.9 - HYPOTHYROIDISM, UNSPECIFIED (6) Wound infection Assessment/Plan: on antibiotics. Code(s): T14.8 - OTHER INJURY OF UNSPECIFIED BODY REGION L08.9 - LOCAL INFECTION OF THE SKIN AND SUBCUTANEOUS TISSUE, UNSP (7) Sinus bradycardia Assessment/Plan: Pt denies dizziness; she is chronically weak. F/u thyroid studies (levothyroxine recently increased in dose). Pantoprazole, Colace, and Zosyn may all cause slow heart rate (bradycardia in about 1% of pts on any of these medications; highest percentage is with women in her age group, in some studies); consider discontinuing or changing any or all, depending on clinical situation. Code(s): R00.1 - BRADYCARDIA, UNSPECIFIED
--- NOTE | 2017-04-17 11:54 | PN ---
Teaching Attending Note Name of Resident: Osorio Wilson ATTENDING PHYSICIAN STATEMENT I saw and evaluated the patient. I reviewed the resident's note and discussed the case with the resident. I agree with the resident's findings and plan as documented. PULMONARY ALERT,FEELING BETTER,-SOB ,-HEMOPTYSIS. SEROLOGY PENDING. RENAL FUNCTION IMPROVING Problem List - Problems (1) Acute kidney injury Code(s): N17.9 - ACUTE KIDNEY FAILURE, UNSPECIFIED (2) Cellulitis Code(s): L03.90 - CELLULITIS, UNSPECIFIED Qualifiers: Site of cellulitis: extremity Site of cellulitis of extremity: lower extremity Laterality: unspecified laterality Qualified Code(s): L03.119 - Cellulitis of unspecified part of limb (3) Venous stasis of both lower extremities Code(s): I87.8 - OTHER SPECIFIED DISORDERS OF VEINS (4) Hemoptysis Code(s): R04.2 - HEMOPTYSIS (5) Acute hypoxemic respiratory failure Code(s): J96.01 - ACUTE RESPIRATORY FAILURE WITH HYPOXIA (6) Bilateral pulmonary infiltrates on chest x-ray Code(s): R91.8 - OTHER NONSPECIFIC ABNORMAL FINDING OF LUNG FIELD (7) Vasculitis Code(s): I77.6 - ARTERITIS, UNSPECIFIED Assessment/Plan IMP ACUTE HYPOXEMIC RESPIRATORY FAILURE EXTENSIVE BILATERAL INFILTRATES LIKELY VASCULITIS (HEMOPTYSIS,RENAL INSUFFIENCY) PULMONARY RENAL SYNDROME,AUTOIMMUNE HEMOPTYSIS SECONDARY TO ABOVE HTN ANEMIA CHRONIC VENOUS STASIS HYPOTHYROIDISM PLAN IV ANTIBIOTICS IV STEROIDS ? CYTOXAN PRER RHEUMATOLOGY O2 SEROLOGY PENDING F/U CHEST X-RAYS FLEX BRONCH IF NO IMPROVEMENT TRANFUSE RENAL BX ON SATURDAY MONITOR H+H DR CORBIN Problem List - Problems (1) Acute kidney injury Code(s): N17.9 - ACUTE KIDNEY FAILURE, UNSPECIFIED (2) Cellulitis Code(s): L03.90 - CELLULITIS, UNSPECIFIED Qualifiers: Site of cellulitis: extremity Site of cellulitis of extremity: lower extremity Laterality: unspecified laterality Qualified Code(s): L03.119 - Cellulitis of unspecified part of limb (3) Venous stasis of both lower extremities Code(s): I87.8 - OTHER SPECIFIED DISORDERS OF VEINS (4) Hemoptysis Code(s): R04.2 - HEMOPTYSIS (5) Acute hypoxemic respiratory failure Code(s): J96.01 - ACUTE RESPIRATORY FAILURE WITH HYPOXIA (6) Bilateral pulmonary infiltrates on chest x-ray Code(s): R91.8 - OTHER NONSPECIFIC ABNORMAL FINDING OF LUNG FIELD (7) Vasculitis Code(s): I77.6 - ARTERITIS, UNSPECIFIED
--- NOTE | 2017-04-17 13:20 | PN ---
Progress Note (short form) - Note Progress Note: Patient seen and examined feels better. no hemoptysis, she felt "winded" when she was moving from chair to bed. She continues to require oxygen supplemental O/E: General: sitting in a chair, on oxygen HEENT: No scleral icterus, no LAD Lungs: CTA b/l ABdomen: soft LE: +bilateral ulcers in dressing. Last Vital Signs Temp Pulse Resp BP Pulse Ox 97.8 F 43 L 20 156/68 97 04/17/17 06:00 04/17/17 06:00 04/17/17 06:00 04/17/17 06:00 04/16/17 22:00 CBC, BMP 04/17/17 06:20 04/17/17 06:20 Current Medications Generic Name Dose Route Start Last Admin Trade Name Freq PRN Reason Stop Dose Admin Collagenase 1 applic 04/10/17 10:00 04/17/17 10:52 Santyl - TP 1 applic DAILY [facility] Administration Gentamicin Sulfate 1 applic 04/16/17 10:00 04/17/17 10:52 Garamycin 0.1% Ointment - TP 1 applic DAILY [facility] Administration Heparin Sodium (Porcine) 5,000 unit 04/09/17 18:00 04/17/17 10:17 Heparin - SQ 5,000 unit Q8H-IV [facility] Administration Piperacillin Sod/Tazobactam 50 mls @ 100 mls/hr 04/15/17 10:15 04/17/17 10:17 Sod 2.25 gm/ Dextrose IVPB 100 mls/hr Q8H-IV [facility] Administration Protocol Insulin Aspart 1 vial 04/17/17 07:36 04/17/17 12:27 Novolog Vial Sliding Scale - SQ 8 units ACHS [facility] Administration Protocol Levothyroxine Sodium 100 mcg 04/18/17 07:00 Synthroid - PO DAILY@0700 [facility] Polyethylene Glycol 17 gm 04/10/17 10:00 04/17/17 10:18 Miralax (For Daily Use) - PO Not Given DAILY [facility] Valacyclovir HCl 500 mg 04/15/17 22:00 04/17/17 10:17 Valtrex - PO 500 mg BID [facility] Administration Assessment/Plan: Good pastures Anemia Pulm/Renal involvement from likely Good-Pasture's Cellulitis -tranfuse prn -s/p steroids -await kidney biopsy on saturday -further treatment of underlying auto-immune etiology as per Rheum -will follow
--- NOTE | 2017-04-17 13:50 | EKG ---
Test Reason : Blood Pressure : / mmHG Vent. Rate : 043 BPM Atrial Rate : 043 BPM P-R Int : 152 ms QRS Dur : 100 ms QT Int : 538 ms P-R-T Axes : 029 -17 014 degrees QTc Int : 454 ms MARKED SINUS BRADYCARDIA VOLTAGE CRITERIA FOR LEFT VENTRICULAR HYPERTROPHY ABNORMAL ECG WHEN COMPARED WITH ECG OF 15-APR-2017 14:35, NO SIGNIFICANT CHANGE WAS FOUND Confirmed by NATALIA YOU MD ([id number]) on 04/17/2017 1:49:56 PM Referred By: CATHLEEN RAPHAEL DR Confirmed By:NATALIA YOU MD
--- NOTE | 2017-04-17 14:22 | PN ---
Progress Note (short form) - Note Progress Note: feels well no complaints Vital Signs Period Temp Pulse Resp BP Sys/Horn Pulse Ox Last 24 Hr 97.6 F-97.8 F 40-48 18-20 140-156/61-96 97-97 cor-rrr lungs decreased bs at bases abd soft,nt ext legs improved, no erythema drying ulcers CBC, BMP 04/17/17 06:20 04/17/17 06:20 Microbiology 04/15/17 10:00 Urine For Antigen Detection Legionella Antigen - Final 04/15/17 10:00 Urine For Antigen Detection Streptococcus pneumoniae Antigen (M - Final 04/15/17 11:24 Back Viral Culture - Preliminary 04/09/17 14:23 Blood - Peripheral Venous Blood Culture - Final NO GROWTH AFTER 5 DAYS INCUBATION 04/09/17 14:23 Blood - Peripheral Venous Blood Culture - Final NO GROWTH AFTER 5 DAYS INCUBATION 04/11/17 15:55 Rectal Swab VRE Culture - Final NO VREF ISOLATED 04/11/17 15:55 Nares - Mrsa Screen - Right MRSA Screen - Final NO MRSA ISOLATED 04/11/17 15:55 Nares - Mrsa Screen - Left MRSA Screen - Final NO MRSA ISOLATED 04/09/17 14:23 Ankle - Left Medial Gram Stain - Final 04/09/17 14:23 Ankle - Left Medial Wound Culture - Final Pseudomonas Aeruginosa Escherichia Coli Mr S Aureus 04/09/17 13:20 Urine - Urine Clean Catch Urine Culture - Final NO GROWTH OBTAINED Active Medications Collagenase (Santyl -) 1 applic TP DAILY [facility] Last Admin: 04/17/17 10:52 Dose: 1 applic Gentamicin Sulfate (Garamycin 0.1% Ointment -) 1 applic TP DAILY [facility] Last Admin: 04/17/17 10:52 Dose: 1 applic Heparin Sodium (Porcine) (Heparin -) 5,000 unit SQ Q8H-IV [facility] Last Admin: 04/17/17 10:17 Dose: 5,000 unit Piperacillin Sod/Tazobactam (Sod 2.25 gm/ Dextrose) 50 mls @ 100 mls/hr IVPB Q8H-IV [facility] PRN Reason: Protocol Last Admin: 04/17/17 10:17 Dose: 100 mls/hr Insulin Aspart (Novolog Vial Sliding Scale -) 1 vial SQ ACHS [facility] PRN Reason: Protocol Last Admin: 04/17/17 12:27 Dose: 8 units Levothyroxine Sodium (Synthroid -) 100 mcg PO DAILY@0700 [facility] Polyethylene Glycol (Miralax (For Daily Use) -) 17 gm PO DAILY [facility] Last Admin: 04/17/17 10:18 Dose: Not Given Valacyclovir HCl (Valtrex -) 500 mg PO BID [facility] Last Admin: 04/17/17 10:17 Dose: 500 mg 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- vasculitis workup in progress, followed by pulmonary/rheum/renal renal biopsy Saturday suspect foot ulcers are vasculitis as well -erythema resolved day #8 zosyn cellulitis resolved- will d/c antibiotics history of MRSA/pseudomonas-contact isolation anemia-stable small ulcers- ?secondary to diaper, ?hsv, viral culture sent, valtrex started Problem List - Problems (1) Cellulitis Code(s): L03.90 - CELLULITIS, UNSPECIFIED Qualifiers: Site of cellulitis: extremity Site of cellulitis of extremity: lower extremity Laterality: unspecified laterality Qualified Code(s): L03.119 - Cellulitis of unspecified part of limb (2) Acute kidney injury Code(s): N17.9 - ACUTE KIDNEY FAILURE, UNSPECIFIED
--- NOTE | 2017-04-17 16:09 | PN ---
Teaching Attending Note Name of Resident: Leighann Domínguez (Nephrology) ATTENDING PHYSICIAN STATEMENT I saw and evaluated the patient. I reviewed the resident's note and discussed the case with the resident. I agree with the resident's findings and plan as documented. Pt seen and examined at bedside. She feels that her breathing is improving. Current Medications Generic Name Dose Route Start Last Admin Trade Name Byron PRN Reason Stop Dose Admin Collagenase 1 applic 04/10/17 10:00 04/17/17 10:52 Santyl - TP 1 applic DAILY [facility] Administration Gentamicin Sulfate 1 applic 04/16/17 10:00 04/17/17 10:52 Garamycin 0.1% Ointment - TP 1 applic DAILY [facility] Administration Heparin Sodium (Porcine) 5,000 unit 04/09/17 18:00 04/17/17 10:17 Heparin - SQ 5,000 unit Q8H-IV [facility] Administration Insulin Aspart 1 vial 04/17/17 07:36 04/17/17 12:27 Novolog Vial Sliding Scale - SQ 8 units ACHS [facility] Administration Protocol Levothyroxine Sodium 100 mcg 04/18/17 07:00 Synthroid - PO DAILY@0700 [facility] Polyethylene Glycol 17 gm 04/10/17 10:00 04/17/17 10:18 Miralax (For Daily Use) - PO Not Given DAILY [facility] Valacyclovir HCl 500 mg 04/15/17 22:00 04/17/17 10:17 Valtrex - PO 500 mg BID [facility] Administration Laboratory Tests 04/11/17 04/14/17 04/16/17 16:30 07:00 15:30 KEELEY Screen Positive H Double Strand DNA Ab <1 Glomerular Base Memb Ab 8 Complement C3 Pending Complement C4 Pending cardio s1s2 reg pulm clear, on nc o2 GI soft ext trace edema neuro awake and alert Impression 1. 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 lower extremity ulcer 3. hypothyroid 4. HTN 5. polymyalgia 6. anemia 7. bradycardia Plan - follow up anca - anti gbm neg - rheum follow up - creatinine is improving - renal workup in progress - kidney biopsy on saturday Dr Hamilton Problem List - Problems (1) Acute kidney injury Code(s): N17.9 - ACUTE KIDNEY FAILURE, UNSPECIFIED (2) Cellulitis Code(s): L03.90 - CELLULITIS, UNSPECIFIED Qualifiers: Site of cellulitis: extremity Site of cellulitis of extremity: lower extremity Laterality: unspecified laterality Qualified Code(s): L03.119 - Cellulitis of unspecified part of limb (3) Hypothyroid Code(s): E03.9 - HYPOTHYROIDISM, UNSPECIFIED (4) Venous stasis of both lower extremities Code(s): I87.8 - OTHER SPECIFIED DISORDERS OF VEINS
[2017-04-17 16:33] LABS: C-ANCA <1:20 titer (Neg:<1:20); MYELOPEROXIDASE ANTIBODY >100.0 U/mL (0.0-9.0); PROTEINASE-3 ANTIBODY <3.5 U/mL (0.0-3.5)
--- NOTE | 2017-04-17 17:02 | PN ---
Progress Note (short form) - Note Progress Note: The patient reports she is feeling better. She has not have hemoptysis, however she still has some shortness of breath. Slight improvement in tenderness in legs in the areas with ulcers. On the physical examination she does not have fever, lungs clear, no active joints. Laboratory work-up revealed a creatinine of 2.9. Urinalysis with protein 2+, blood 3+, hyaline casts 4 and granular casts 4. RBC in urine on 04/09: 83 and on 04/16: 76. pANCA 1:160 and myeloperoxidase >100. C-ANCA and proteinase-3 negative. Glomerular basement membrane antibody: negative. Impression. 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 This disease can explain the hemoptysis and lung infiltrates, active urinary sediment and probable vasculitis in legs. She will require an immunosuppresant medication (Rituximab or cyclophosphamide). The patient will have a kidney biopsy on Saturday and with the preliminary report we will decide on the medication. Continue with Prednisone 40 mg BID. I discussed the case with Drs. Hamilton and Jaron. 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
[2017-04-17] MEDS ORDERED: NITROGLYCERIN 25MG/D5W 250ML 250 ML IVPB SCH (18:00)
[2017-04-17] MEDS: predniSONE 20 MG TABLET (UD) PO SCH (18:39)
--- NOTE | 2017-04-18 07:58 | PN ---
Physical Exam: SUBJECTIVE: Patient seen and examined at the bedside. States she feels well. OBJECTIVE: Vital Signs Period Temp Pulse Resp BP Sys/Horn Pulse Ox Last 24 Hr 97.5 F-97.9 F 43-114 16-20 138-175/67-89 96-99 GENERAL: The patient is awake, alert, and fully oriented, in no acute distress. HEAD: Normal with no signs of trauma. EYES: PERRL, extraocular movements intact, sclera anicteric, conjunctiva clear. No ptosis. ENT: Ears normal, nares patent, oropharynx clear without exudates, moist mucous membranes. NECK: Trachea midline, full range of motion, supple. LUNGS: Breath sounds equal, clear to auscultation bilaterally, no wheezes, shortness of breath at rest, requires 2 liters of supplemental oxygen HEART: Regular rate and rhythm, ABDOMEN: Soft, nontender, nondistended, normoactive bowel sounds, no guarding, no rebound, no hepatosplenomegaly, no masses. EXTREMITIES: 2+ pulses, warm, well-perfused, no edema. NEUROLOGICAL: Normal speech, gait not observed. PSYCH: Normal mood, normal affect. SKIN: RLE medial open wound clean, pink, no bleeding + pulse on right foot. LLE : dressing cdi, wound not viewed, faint pulse felt on left foot. Laboratory Results - last 24 hr 04/11/17 04/14/17 04/16/17 16:30 07:00 21:00 WBC RBC Hgb Hct MCV MCH MCHC RDW Plt Count MPV Neutrophils % Lymphocytes % Monocytes % Eosinophils % Basophils % Sodium Potassium Chloride Carbon Dioxide Anion Gap BUN Creatinine Creat Clearance w eGFR POC Glucometer 413 Random Glucose Calcium Total Bilirubin AST ALT Alkaline Phosphatase Total Protein Albumin Bofel-7-Qxpqqjinc (%) Ffley-4-Nevhulrrr (%) Beta Globulins (%) Gamma Globulins (%) M-Kuldip % TSH Free T4 Urine Eosinophils Cancelled Random Vancomycin KEELEY Screen Positive H KEELEY Homogeneous Pattern 1:320 H KEELEY Nucleolar Pattern 1:320 H KEELEY Speckled Pattern TNP KEELEY Centromere Pattern TNP c-ANCA <1:20 Proteinase 3 (PR3) <3.5 p-ANCA 1:160 H Atypical p-ANCA <1:20 Myeloperoxidase Ab >100.0 H Double Strand DNA Ab <1 Glomerular Base Memb Ab 8 Ref Test Comments 0904/17/17 04/17/17 23:14 06:20 06:20 WBC 10.3 H RBC 3.40 L Hgb 9.7 L Hct 29.2 L MCV 85.9 MCH 28.7 MCHC 33.3 RDW 15.7 H Plt Count 341 MPV 8.1 Neutrophils % 88.5 H Lymphocytes % 7.2 L Monocytes % 4.1 Eosinophils % 0.0 Basophils % 0.2 Sodium Potassium Chloride Carbon Dioxide Anion Gap BUN Creatinine Creat Clearance w eGFR POC Glucometer 424 Random Glucose Calcium Total Bilirubin AST ALT Alkaline Phosphatase Total Protein Albumin Npxrn-9-Rpeuotkzq (%) Dnozr-9-Iqojdcdfm (%) Beta Globulins (%) Gamma Globulins (%) M-Kuldip % TSH Free T4 Urine Eosinophils Random Vancomycin 11.499 KEELEY Screen KEELEY Homogeneous Pattern KEELEY Nucleolar Pattern KEELEY Speckled Pattern KEELEY Centromere Pattern c-ANCA Proteinase 3 (PR3) p-ANCA Atypical p-ANCA Myeloperoxidase Ab Double Strand DNA Ab Glomerular Base Memb Ab Ref Test Comments 04/17/17 04/17/17 04/17/17 06:20 06:20 06:20 WBC RBC Hgb Hct MCV MCH MCHC RDW Plt Count MPV Neutrophils % Lymphocytes % Monocytes % Eosinophils % Basophils % Sodium 140 Potassium 3.8 Chloride 104 Carbon Dioxide 24 Anion Gap 12 BUN 67 H Creatinine 2.9 H Creat Clearance w eGFR 15.78 POC Glucometer Random Glucose 203 H D Calcium 8.4 L Total Bilirubin 0.6 AST 9 L D ALT 27 Alkaline Phosphatase 78 Total Protein 6.4 Albumin 2.5 L Ktxva-0-Hszzhyjed (%) Cancelled Wszth-2-Qlnscefcm (%) Cancelled Beta Globulins (%) Cancelled Gamma Globulins (%) Cancelled M-Kuldip % Cancelled TSH 1.91 D Free T4 1.93 H D Cancelled Urine Eosinophils Random Vancomycin KEELEY Screen KEELEY Homogeneous Pattern KEELEY Nucleolar Pattern KEELEY Speckled Pattern KEELEY Centromere Pattern c-ANCA Proteinase 3 (PR3) p-ANCA Atypical p-ANCA Myeloperoxidase Ab Double Strand DNA Ab Glomerular Base Memb Ab Ref Test Comments Cancelled 04/17/17 04/17/17 04/18/17 16:38 21:07 05:43 WBC RBC Hgb Hct MCV MCH MCHC RDW Plt Count MPV Neutrophils % Lymphocytes % Monocytes % Eosinophils % Basophils % Sodium Potassium Chloride Carbon Dioxide Anion Gap BUN Creatinine Creat Clearance w eGFR POC Glucometer 257 193 269 Random Glucose Calcium Total Bilirubin AST ALT Alkaline Phosphatase Total Protein Albumin Yooop-9-Ofbrzitib (%) Umqnj-4-Vjqtkzizb (%) Beta Globulins (%) Gamma Globulins (%) M-Kuldip % TSH Free T4 Urine Eosinophils Random Vancomycin KEELEY Screen KEELEY Homogeneous Pattern KEELEY Nucleolar Pattern KEELEY Speckled Pattern KEELEY Centromere Pattern c-ANCA Proteinase 3 (PR3) p-ANCA Atypical p-ANCA Myeloperoxidase Ab Double Strand DNA Ab Glomerular Base Memb Ab Ref Test Comments Active Medications Generic Name Dose Route Start Last Admin Trade Name Freq PRN Reason Stop Dose Admin Collagenase 1 applic 04/10/17 10:00 04/17/17 10:52 Santyl - TP 1 applic DAILY MILES Administration Gentamicin Sulfate 1 applic 04/16/17 10:00 04/17/17 10:52 Garamycin 0.1% Ointment - TP 1 applic DAILY MILES Administration Heparin Sodium (Porcine) 5,000 unit 04/09/17 18:00 04/17/17 17:05 Heparin - SQ 5,000 unit Q8H-IV MILES Administration Insulin Aspart 1 vial 04/17/17 07:36 04/17/17 22:02 Novolog Vial Sliding Scale - SQ 4 units ACHS MILES Administration Protocol Levothyroxine Sodium 100 mcg 04/18/17 07:00 Synthroid - PO DAILY@0700 MILES Polyethylene Glycol 17 gm 04/10/17 10:00 04/17/17 10:18 Miralax (For Daily Use) - PO Not Given DAILY MILES Prednisone 40 mg 04/17/17 18:30 04/17/17 18:39 Deltasone - PO 40 mg BID MILES Administration Valacyclovir HCl 500 mg 04/15/17 22:00 04/17/17 22:01 Valtrex - PO 500 mg BID MILES Administration ASSESSMENT/PLAN: Patient is a 77 year old female with a past medical history of of non healing chronic RLE venous ulcer, borderline hypertension, polymyalgia, hypothyroidism, sent to ED by Dr. Silvestre for b/l lower extremity cellulitis. Rheumatology: Autoimmune Disease/disorder - rule out vasculitis A/P: Patient with progressive chronic bilateral lower ext ulcers, hematuria, renal disease and had two episodes of hemoptysis Good pasture's ruled out-AntigbmAb negative, immunology studies pending Kidney biopsy to be done on Saturday, ASA stopped Patient followed by surgical training specialist If disease continues to progress, may need Cytoxan and plasma plasmapheresis Given Pulse steriods betwen 04/14>04/16, No further treatment for vasculitis until the biospy. On prednisone 40mg PO BID, as per rheum. Repeat BMP in am. Cardiology: Elevated trops/Bradycardia in the 40s A/P: Trops minimally elevated Cardiology notes reviewed, unlikely ACS Bradycardia again today morning Her Synthroid was increased to 112.5mg on 04/13 when TSH levels were elevated, decreased back to home dose of Synthorid 100mcg sofiya Patient states she had "missed some" doses of Synthroid at home Unclear if bradycardia related to increase of Synthroid Colace, Senna, Zofran, Protonix also stopped in case it may be contributing to the bradycardia Meat Team Member following/Ditching Machine Operator following ID: Bilateral Lower Ext. Cellulitis - acute on chronic A/P: Hx of chronic LE ulcers secondary to venous stasis Sherin of MRSA, VRE, on contact precautions On Zoysn for LE cellulitis, ID following Vascular following Wound dressing with Santyl Hematology: A/P: Symptomatic anemia - now resolved Blood/Iron studies with anemia of chronic disease S/P 2 units of prbc, now with low stable cbc Blood occult stool negative Monitor CBC Pulmonary: Hemoptysis - now resolved A/P: pulm following Monitor for any further hemoptysis Chest xray with bilateral infiltrates Renal: MYRTLE A/P: Bun/Creat now 2.9 As per renal, pt may need kidney biopsy, ASA stopped, Kidney biopsy on Saturday Renal following Endocrine: Hypothyroidism A/P: TSH elevated Her Synthroid was increased to 112.5mg on 04/13 when TSH levels were elevated, decreased back to home dose of Synthroid 100mcg by Endocrinology Patient states she had "missed some" doses of Synthroid at home Unclear if bradycardia related to recent increase of Synthroid Colace, Senna, Zofran, Protonix also stopped in case it may be contributing to the bradycardia Meat Team Member following/Ditching Machine Operator following Hyperglycemia: Steroid induced hyperglycemia A/P: now on sliding scale, Levemir added Monitor BGMs tid/ac/hs Prophylaxis: DVT: Heparin 5000 SC q8 GI: Protonix F.E.N. Fluids: tolerating PO Electrolytes: monitor Nutrition: low sodium diet Disposition: Full code.
[2017-04-18 08:07] LABS: COMPLEMENT C3 137 mg/dL (82-167); COMPLEMENT C4 24 mg/dL (14-44)
[2017-04-18 09:02] LABS: BASOPHIL 0.4 % (0-2.0); MCH 28.3 pg (25.7-33.7); MCHC 33.4 g/dl (32.0-36.0); MEAN CELL VOLUME 84.8 fl (80-96); MEAN PLT VOLUME 8.2 fl (7.5-11.1); NEUTROPHILS 87.5 % (42.8-82.8); PLATELET COUNT 348 K/MM3 (134-434); RDW 16.1 % (11.6-15.6); WHITE BLOOD COUNT 12.7 K/mm3 (4.0-10.0)
[2017-04-18 09:33] LABS: ALBUMIN 2.5 g/dl (3.4-5.0); ANION GAP 9 (8-16); CALCIUM 8.3 mg/dL (8.5-10.1); CO2 25 mmol/L (21-32); CREATININE 2.7 mg/dL (0.55-1.02); GLUCOSE,RANDOM 186 mg/dL (74-106); SGOT/AST 7 U/L (15-37); SGPT/ALT 24 U/L (12-78)
[2017-04-18 09:35] LABS: ALK PHOS 72 U/L (45-117); BILIRUBIN,TOTAL 0.5 mg/dL (0.2-1.0); TOT PROT 6.1 g/dl (6.4-8.2)
[2017-04-18] MEDS ORDERED: PT OWN MED DRAWER 7, Y5N ONE (10:24)
[2017-04-18] MEDS: HEPARIN NA (PORCINE) 5,000 UNITS/ML 1ML VIAL SQ SCH ×2 (10:29→17:03)
[2017-04-18] MEDS: POLYETHYLENE GLYCOL 3350 119 GM BTL PO SCH (10:32)
[2017-04-18] MEDS: predniSONE 20 MG TABLET (UD) PO SCH ×2 (10:32→22:37)
[2017-04-18] MEDS: valACYclovir HCL 500 MG TABLET (FP) PO SCH ×2 (10:32→22:37)
[2017-04-18] MEDS: INSULIN SLIDING SCALE (NOVOLOG) 1 VIAL SQ SCH ×3 (11:50→22:38)
--- NOTE | 2017-04-18 13:55 | PN ---
Progress Note (short form) - Note Progress Note: Patient seen and examined O/E: General: NAD HEENT: No scleral icterus, no LAD Lungs: CTA b/l ABdomen: soft LE: +bilateral ulcers in dressing. Last Vital Signs Temp Pulse Resp BP Pulse Ox 97.7 F 54 L 18 134/56 99 04/18/17 10:00 04/18/17 10:00 04/18/17 10:00 04/18/17 10:00 04/17/17 22:00 CBC, BMP 04/18/17 08:45 Current Medications Generic Name Dose Route Start Last Admin Trade Name Freq PRN Reason Stop Dose Admin Collagenase 1 applic 04/10/17 10:00 04/17/17 10:52 Santyl - TP 1 applic DAILY MILES Administration Gentamicin Sulfate 1 applic 04/16/17 10:00 04/17/17 10:52 Garamycin 0.1% Ointment - TP 1 applic DAILY MILES Administration Heparin Sodium (Porcine) 5,000 unit 04/09/17 18:00 04/18/17 10:29 Heparin - SQ 5,000 unit Q8H-IV MILES Administration Insulin Aspart 1 vial 04/17/17 07:36 04/18/17 11:50 Novolog Vial Sliding Scale - SQ 6 units ACHS MILES Administration Protocol Levothyroxine Sodium 100 mcg 04/18/17 07:00 Synthroid - PO DAILY@0700 MILES Polyethylene Glycol 17 gm 04/10/17 10:00 04/18/17 10:32 Miralax (For Daily Use) - PO 17 gm DAILY MILES Administration Prednisone 40 mg 04/17/17 18:30 04/18/17 10:32 Deltasone - PO 40 mg BID MILES Administration Valacyclovir HCl 500 mg 04/15/17 22:00 04/18/17 10:32 Valtrex - PO 500 mg BID MILES Administration Assessment/Plan: 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 -tranfuse prn -on steroids -await kidney biopsy on saturday -further treatment of underlying auto-immune etiology as per Rheum -will check Hep serologies, if Rituxan is to be considered in the near future. -will follow
--- NOTE | 2017-04-18 13:59 | PN ---
Physical Exam: PULMONARY CONSULT SUBJECTIVE: Patient seen, examined. Denies CP, SOB, hemoptysis. OBJECTIVE: Vital Signs Period Temp Pulse Resp BP Sys/Horn Pulse Ox Last 24 Hr 97.5 F-97.9 F 43-114 16-20 134-175/56-89 99-99 GEN: AAOx3, NAD, Sitting comfortably in bed HENT: PERRLA, EOMi CV: S1, S2, bradycardic rate LUNG: CTABL ABD: Soft, NT, ND, normoactive BS MSK: B/L 2+ pitting edema, legs wrapped Laboratory Last Values WBC 12.7 K/mm3 (4.0-10.0) H 04/18/17 08:45 RBC 3.67 M/mm3 (3.60-5.2) 04/18/17 08:45 Hgb 10.4 GM/dL (10.7-15.3) L 04/18/17 08:45 Hct 31.1 % (32.4-45.2) L 04/18/17 08:45 MCV 84.8 fl (80-96) 04/18/17 08:45 MCH 28.3 pg (25.7-33.7) 04/18/17 08:45 MCHC 33.4 g/dl (32.0-36.0) 04/18/17 08:45 RDW 16.1 % (11.6-15.6) H 04/18/17 08:45 Plt Count 348 K/MM3 (134-434) 04/18/17 08:45 MPV 8.2 fl (7.5-11.1) 04/18/17 08:45 Neutrophils % 87.5 % (42.8-82.8) H 04/18/17 08:45 Lymphocytes % 7.7 % (8-40) L 04/18/17 08:45 Monocytes % 4.4 % (3.8-10.2) 04/18/17 08:45 Eosinophils % 0.0 % (0-4.5) 04/18/17 08:45 Basophils % 0.4 % (0-2.0) 04/18/17 08:45 Basophilic Stippling 1+ 04/15/17 06:30 ESR 105 mm/hr (0-30) H 04/14/17 07:00 Haptoglobin 431 mg/dL (34-200) H 04/13/17 07:30 PT with INR 12.80 SEC (9.98-11.88) H 04/16/17 05:35 INR 1.16 (0.82-1.09) H 04/16/17 05:35 PTT (Actin FS) 33.6 SECONDS (26.9-34.4) 04/16/17 05:35 Fibrinogen 320.0 mg/dL (238-498) 04/16/17 05:35 Puncture Site Left radial 04/12/17 16:50 ABG pH 7.43 (7.35-7.45) 04/12/17 16:50 ABG pCO2 at Pt Temp 37.1 mmHg (35-45) 04/12/17 16:50 ABG pO2 at Pt Temp 50.8 mmHg (70-100) L 04/12/17 16:50 ABG HCO3 24.1 meq/L (22-26) 04/12/17 16:50 ABG O2 Sat (Measured) 85.9 % (90-98.9) L 04/12/17 16:50 ABG O2 Content 10.4 % vol (15-22) L 04/12/17 16:50 ABG Base Excess 0.4 meq/l (-2-2) 04/12/17 16:50 Aaron Test Positive 04/12/17 16:50 Oxygen Flow Rate room air 04/12/17 16:50 PEEP 0.0 cmH2O 04/12/17 16:50 Sodium 143 mmol/L (136-145) 04/18/17 08:45 Potassium 3.5 mmol/L (3.5-5.1) 04/18/17 08:45 Chloride 109 mmol/L (98-107) H 04/18/17 08:45 Carbon Dioxide 25 mmol/L (21-32) 04/18/17 08:45 Anion Gap 9 (8-16) 04/18/17 08:45 BUN 66 mg/dL (7-18) H 04/18/17 08:45 Creatinine 2.7 mg/dL (0.55-1.02) H 04/18/17 08:45 Creat Clearance w eGFR 17.13 (>60) 04/18/17 08:45 POC Glucometer 236 UNITS (()) 04/18/17 11:26 Random Glucose 186 mg/dL (74-106) H 04/18/17 08:45 Lactic Acid 0.9 mmol/L (0.4-2.0) 04/12/17 18:30 Calcium 8.3 mg/dL (8.5-10.1) L 04/18/17 08:45 Magnesium 2.5 mg/dL (1.8-2.4) H 04/16/17 05:35 Iron 13 ug/dL (27-139) L 04/12/17 14:10 TIBC 163 ug/dL (250-450) L 04/12/17 14:10 Iron Saturation 8 % (15-55) L 04/12/17 14:10 Transferrin 127 mg/dL (200-370) L 04/12/17 14:10 Ferritin Cancelled 04/12/17 14:10 Total Bilirubin 0.5 mg/dL (0.2-1.0) 04/18/17 08:45 AST 7 U/L (15-37) L D 04/18/17 08:45 ALT 24 U/L (12-78) 04/18/17 08:45 Alkaline Phosphatase 72 U/L (45-117) 04/18/17 08:45 LD Total 201 U/L (84-246) 04/13/17 06:15 Creatine Kinase 95 IU/L (26-192) 04/10/17 06:10 Creatine Kinase Index 0.5 % (0.0-5.0) 04/09/17 14:23 CK-MB (CK-2) 1.031 ng/mL (0.5-3.6) 04/09/17 14:23 Troponin I 0.08 ng/ml (0.00-0.05) H 04/10/17 06:10 C-Reactive Protein 10.0 MG/DL (0.00-0.3) H 04/11/17 07:00 Total Protein 6.1 g/dl (6.4-8.2) L 04/18/17 08:45 Albumin 2.5 g/dl (3.4-5.0) L 04/18/17 08:45 Ifymz-3-Wcxxeimpt (%) Cancelled 04/17/17 06:20 Vfqsm-6-Cqyndmnao (%) Cancelled 04/17/17 06:20 Beta Globulins (%) Cancelled 04/17/17 06:20 Gamma Globulins (%) Cancelled 04/17/17 06:20 M-Kuldip % Cancelled 04/17/17 06:20 Triglycerides 133 mg/dL (35-160) 04/11/17 06:00 Cholesterol 136 mg/dL (50-200) 04/11/17 06:00 Total LDL Cholesterol 79 mg/dL (5-100) 04/11/17 06:00 HDL Cholesterol 31 mg/dL (40-60) L 04/11/17 06:00 TSH 1.91 uIU/ml (0.358-3.74) D 04/17/17 06:20 Free T4 1.93 ng/dl (0.76-1.46) H D 04/17/17 06:20 Free T3 1.7 pg/ml (2.0-4.4) L 04/11/17 11:03 Urine Color Ltyellow 04/16/17 09:00 Urine Appearance Cloudy 04/16/17 09:00 Urine pH 5.0 (5.0-8.0) 04/16/17 09:00 Ur Specific [place] 1.020 (1.005-1.025) 04/16/17 09:00 Urine Protein 2+ (NEGATIVE) H 04/16/17 09:00 Urine Glucose (UA) 2+ (NEGATIVE) H 04/16/17 09:00 Urine Ketones Negative (NEGATIVE) 04/16/17 09:00 Urine Blood 3+ (NEGATIVE) H 04/16/17 09:00 Urine Nitrite Negative (NEGATIVE) 04/16/17 09:00 Urine Bilirubin Negative (NEGATIVE) 04/16/17 09:00 Urine Urobilinogen Negative mg/dL (0.2-1.0) 04/16/17 09:00 Urine RBC 76 /hpf (0-3) 04/16/17 09:00 Urine WBC 30 /hpf (3-5) 04/16/17 09:00 Ur Epithelial Cells Moderate /hpf (FEW) 04/16/17 09:00 Hyaline Casts 4 /lpf 04/16/17 09:00 Granular Casts 4 /lpf 04/16/17 09:00 Urine Mucus Rare 04/16/17 09:00 Urine Yeast Rare 04/16/17 09:00 Urine Eosinophils None seen % (.) 04/15/17 10:00 U Random Total Protein 104 mg/dl (5-11.9) H 04/12/17 09:00 Ur Random Sodium 68 MMOL/L 04/12/17 10:30 Ur Random Potassium 37.2 MMOL/L 04/12/17 10:30 Ur Random Chloride 82 MMOL/L 04/12/17 10:30 Ur Random Urea Nitrogn 571 mg/dL 04/12/17 09:00 Urine Creatinine 89.5 mg/dL (20-320) 04/12/17 10:30 Protein/Creatinin Ratio 0.97 MG/DL 04/12/17 09:00 Stool Occult Blood Negative (NEGATIVE) 04/13/17 11:30 Random Vancomycin 11.499 ug/ml 04/17/17 06:20 KEELEY Screen Positive (.) H 04/11/17 16:30 KEELEY Homogeneous Pattern 1:320 (.) H 04/11/17 16:30 KEELEY Nucleolar Pattern 1:320 (.) H 04/11/17 16:30 KEELEY Speckled Pattern TNP 04/11/17 16:30 KEELEY Centromere Pattern TNP 04/11/17 16:30 c-ANCA <1:20 titer (Neg:<1:20) 04/11/17 16:30 Proteinase 3 (PR3) <3.5 U/mL (0.0-3.5) 04/11/17 16:30 p-ANCA 1:160 titer (Neg:<1:20) H 04/11/17 16:30 Atypical p-ANCA <1:20 titer (Neg:<1:20) 04/11/17 16:30 Myeloperoxidase Ab >100.0 U/mL (0.0-9.0) H 04/11/17 16:30 Double Strand DNA Ab <1 IU/mL (0-9) 04/11/17 16:30 Glomerular Base Memb Ab 8 units (0-20) 04/14/17 07:00 Complement C3 137 mg/dL (82-167) 04/16/17 15:30 Complement C4 24 mg/dL (14-44) 04/16/17 15:30 Tot Complement (CH50) > 65 U/mL (42-60) H 04/14/17 07:00 Ref Test Comments Cancelled 04/17/17 06:20 Blood Type O POSITIVE 04/15/17 09:00 Antibody Screen Positive H 04/15/17 09:00 Antibody Identification TNP 04/15/17 09:00 Crossmatch See Detail 04/15/17 09:00 Active Medications Generic Name Dose Route Start Last Admin Trade Name Freq PRN Reason Stop Dose Admin Collagenase 1 applic 04/10/17 10:00 04/17/17 10:52 Santyl - TP 1 applic DAILY MILES Administration Gentamicin Sulfate 1 applic 04/16/17 10:00 04/17/17 10:52 Garamycin 0.1% Ointment - TP 1 applic DAILY MILES Administration Heparin Sodium (Porcine) 5,000 unit 04/09/17 18:00 04/18/17 10:29 Heparin - SQ 5,000 unit Q8H-IV MILES Administration Insulin Aspart 1 vial 04/17/17 07:36 04/18/17 11:50 Novolog Vial Sliding Scale - SQ 6 units ACHS MILES Administration Protocol Levothyroxine Sodium 100 mcg 04/18/17 07:00 Synthroid - PO DAILY@0700 MILES Polyethylene Glycol 17 gm 04/10/17 10:00 04/18/17 10:32 Miralax (For Daily Use) - PO 17 gm DAILY MILES Administration Prednisone 40 mg 04/17/17 18:30 04/18/17 10:32 Deltasone - PO 40 mg BID MILES Administration Valacyclovir HCl 500 mg 04/15/17 22:00 04/18/17 10:32 Valtrex - PO 500 mg BID MILES Administration ASSESSMENT/PLAN: Ms. Chiang is a 77yo F with PMHx of Polymyalgia rheumatica, HTN, Hypothyroidism , admitted for bilateral lower extremity cellulitis. During the hospitalization , she developed hemoptysis, SOB, and hypoxia (86% on RA). 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 We will continue to follow Osorio Wilson MD - PGY1 Internal Medicine Visit type - Emergency Visit Emergency Visit: No - New Patient This patient is new to me today: No - Critical Care Critical Care patient: No
--- NOTE | 2017-04-18 14:38 | PN ---
Physical Exam: SUBJECTIVE: Patient seen and examined at bed side. Has no complaints. Denies chest pain, sob, cough, palpitation, abdominal pain, nausea or vomiting. No acute events overnight. OBJECTIVE: Vital Signs Period Temp Pulse Resp BP Sys/Horn Pulse Ox Last 24 Hr 97.6 F-97.9 F 43-114 16-20 134-175/56-75 99-99 GENERAL: Patient is sitting comfortably in bed, awake, alert, and fully oriented , in no acute distress, nasal canula in place. HEAD: Normal with no signs of trauma. EYES: EOM intact, no pallor or icterus. ENT: Ears normal, moist mucous membranes. NECK: Supple. LUNGS: Breath sounds equal, clear to auscultation bilaterally, no wheezes, no crackles, no accessory muscle use. HEART: Bradycardic, Regular rate and rhythm, S1, S2 without murmur. ABDOMEN: Soft, nontender, nondistended, normoactive bowel sounds, no guarding, no rebound, no hepatosplenomegaly, no masses. UPPER EXTREMITIES: 2+ pulses, warm, well-perfused, no edema. LOWER EXTREMITIES: Dressing applied in both lower extremities. 2+ pulses, warm, well-perfused, b/l pitting edema. NEUROLOGICAL: No facial droop. Normal speech, gait not observed. PSYCH: Normal mood, normal affect. SKIN: B/L dressing applied in the lower extremities, Warm, dry, normal turgor, no rashes or lesions noted Laboratory Results - last 24 hr 04/11/17 04/16/17 04/17/17 16:30 15:30 10:44 WBC RBC Hgb Hct MCV MCH MCHC RDW Plt Count MPV Neutrophils % Lymphocytes % Monocytes % Eosinophils % Basophils % Sodium Potassium Chloride Carbon Dioxide Anion Gap BUN Creatinine Creat Clearance w eGFR POC Glucometer 269 Random Glucose Calcium Total Bilirubin AST ALT Alkaline Phosphatase Total Protein Albumin Urine Eosinophils Cancelled KEELEY Screen Positive H KEELEY Homogeneous Pattern 1:320 H KEELEY Nucleolar Pattern 1:320 H KEELEY Speckled Pattern TNP KEELEY Centromere Pattern TNP c-ANCA <1:20 Proteinase 3 (PR3) <3.5 p-ANCA 1:160 H Atypical p-ANCA <1:20 Myeloperoxidase Ab >100.0 H Double Strand DNA Ab <1 Complement C3 137 Complement C4 24 04/17/17 04/17/17 04/18/17 16:38 21:07 05:43 WBC RBC Hgb Hct MCV MCH MCHC RDW Plt Count MPV Neutrophils % Lymphocytes % Monocytes % Eosinophils % Basophils % Sodium Potassium Chloride Carbon Dioxide Anion Gap BUN Creatinine Creat Clearance w eGFR POC Glucometer 257 193 269 Random Glucose Calcium Total Bilirubin AST ALT Alkaline Phosphatase Total Protein Albumin Urine Eosinophils KEELEY Screen KEELEY Homogeneous Pattern KEELEY Nucleolar Pattern KEELEY Speckled Pattern KEELEY Centromere Pattern c-ANCA Proteinase 3 (PR3) p-ANCA Atypical p-ANCA Myeloperoxidase Ab Double Strand DNA Ab Complement C3 Complement C4 04/18/17 04/18/17 04/18/17 08:45 08:45 08:45 WBC 12.7 H RBC 3.67 Hgb 10.4 L Hct 31.1 L MCV 84.8 MCH 28.3 MCHC 33.4 RDW 16.1 H Plt Count 348 MPV 8.2 Neutrophils % 87.5 H Lymphocytes % 7.7 L Monocytes % 4.4 Eosinophils % 0.0 Basophils % 0.4 Sodium Cancelled 143 Potassium Cancelled 3.5 Chloride Cancelled 109 H Carbon Dioxide Cancelled 25 Anion Gap Cancelled 9 BUN Cancelled 66 H Creatinine Cancelled 2.7 H Creat Clearance w eGFR 17.13 POC Glucometer Random Glucose Cancelled 186 H Calcium Cancelled 8.3 L Total Bilirubin 0.5 AST 7 L D ALT 24 Alkaline Phosphatase 72 Total Protein 6.1 L Albumin 2.5 L Urine Eosinophils KEELEY Screen KEELEY Homogeneous Pattern KEELEY Nucleolar Pattern KEELEY Speckled Pattern KEELEY Centromere Pattern c-ANCA Proteinase 3 (PR3) p-ANCA Atypical p-ANCA Myeloperoxidase Ab Double Strand DNA Ab Complement C3 Complement C4 04/18/17 11:26 WBC RBC Hgb Hct MCV MCH MCHC RDW Plt Count MPV Neutrophils % Lymphocytes % Monocytes % Eosinophils % Basophils % Sodium Potassium Chloride Carbon Dioxide Anion Gap BUN Creatinine Creat Clearance w eGFR POC Glucometer 236 Random Glucose Calcium Total Bilirubin AST ALT Alkaline Phosphatase Total Protein Albumin Urine Eosinophils KEELEY Screen KEELEY Homogeneous Pattern KEELEY Nucleolar Pattern KEELEY Speckled Pattern KEELEY Centromere Pattern c-ANCA Proteinase 3 (PR3) p-ANCA Atypical p-ANCA Myeloperoxidase Ab Double Strand DNA Ab Complement C3 Complement C4 Active Medications Generic Name Dose Route Start Last Admin Trade Name Freq PRN Reason Stop Dose Admin Collagenase 1 applic 04/10/17 10:00 04/17/17 10:52 Santyl - TP 1 applic DAILY MILES Administration Gentamicin Sulfate 1 applic 04/16/17 10:00 04/17/17 10:52 Garamycin 0.1% Ointment - TP 1 applic DAILY MILES Administration Heparin Sodium (Porcine) 5,000 unit 04/09/17 18:00 04/18/17 10:29 Heparin - SQ 5,000 unit Q8H-IV MILES Administration Insulin Aspart 1 vial 04/17/17 07:36 04/18/17 11:50 Novolog Vial Sliding Scale - SQ 6 units ACHS MILES Administration Protocol Levothyroxine Sodium 100 mcg 04/18/17 07:00 Synthroid - PO DAILY@0700 MILES Polyethylene Glycol 17 gm 04/10/17 10:00 04/18/17 10:32 Miralax (For Daily Use) - PO 17 gm DAILY MILES Administration Prednisone 40 mg 04/17/17 18:30 04/18/17 10:32 Deltasone - PO 40 mg BID MILES Administration Valacyclovir HCl 500 mg 04/15/17 22:00 04/18/17 10:32 Valtrex - PO 500 mg BID MILES Administration Patient is a 77 year- old- female with a past medical history of of non healing chronic RLE venous ulcer, borderline hypertension, polymyalgia, hypothyroidism, sent to ED by Dr. Silvestre for b/l lower extremity cellulitis. ASSESSMENT 1. 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 Bradycardia 4. Hyperglycemia secondary to steroid use 5. Cellulitis of bilateral lower extremity 6. Hypothyroidism 7. B/L Infiltrates 8. Normocytic anemia Plan: Vasculitis- Could be Microscopic polyangitis. Myeloperoxidase + P-Anca +, C3 and C4 is normal. Good pasture's ruled out-AntigbmAb negative Less likely Lupus nephritis since AntidsDNA is negative. Kidney function is improving, creatinine 2.9---> 2.7 today UPEP and EPEP pending To confirm the diagnosis:kidney biopsy on Saturday (Aspirin on hold, today is the third day) On prednisone 40mg PO BID, as per rheum. No further treatment for vasculitis until the biospy. Repeat BMP in am. Thank you for the consultative opportunity. Case discussed with Dr. Hamilton. Visit type - Emergency Visit Emergency Visit: Yes ED Registration Date: 04/09/17 Care time: The patient presented to the Emergency Department on the above date and was hospitalized for further evaluation of their emergent condition. - New Patient This patient is new to me today: No - Critical Care Critical Care patient: No
--- NOTE | 2017-04-18 15:27 | PN ---
Teaching Attending Note Name of Resident: Leighann Domínguez (Nephrology) ATTENDING PHYSICIAN STATEMENT I saw and evaluated the patient. I reviewed the resident's note and discussed the case with the resident. I agree with the resident's findings and plan as documented. Pt seen and examined at bedside. She is awake and alert. She feels that he breathing is improved. Current Medications Generic Name Dose Route Start Last Admin Trade Name Freskye PRN Reason Stop Dose Admin Collagenase 1 applic 04/10/17 10:00 04/17/17 10:52 Santyl - TP 1 applic DAILY MILES Administration Gentamicin Sulfate 1 applic 04/16/17 10:00 04/17/17 10:52 Garamycin 0.1% Ointment - TP 1 applic DAILY MILES Administration Heparin Sodium (Porcine) 5,000 unit 04/09/17 18:00 04/18/17 10:29 Heparin - SQ 5,000 unit Q8H-IV MILES Administration Insulin Aspart 1 vial 04/17/17 07:36 04/18/17 11:50 Novolog Vial Sliding Scale - SQ 6 units ACHS MILES Administration Protocol Levothyroxine Sodium 100 mcg 04/18/17 07:00 Synthroid - PO DAILY@0700 MILES Polyethylene Glycol 17 gm 04/10/17 10:00 04/18/17 10:32 Miralax (For Daily Use) - PO 17 gm DAILY MILES Administration Prednisone 40 mg 04/17/17 18:30 04/18/17 10:32 Deltasone - PO 40 mg BID MILES Administration Valacyclovir HCl 500 mg 04/15/17 22:00 04/18/17 10:32 Valtrex - PO 500 mg BID MILES Administration Last Vital Signs Temp Pulse Resp BP Pulse Ox 97.7 F 47 L 16 142/75 99 04/18/17 14:15 04/18/17 14:15 04/18/17 14:15 04/18/17 14:15 04/17/17 22:00 Laboratory Tests 04/11/17 04/14/17 04/18/17 16:30 07:00 08:45 WBC 12.7 H Hgb 10.4 L Sodium Potassium Chloride Carbon Dioxide Anion Gap BUN Creatinine KEELEY Homogeneous Pattern 1:320 H KEELEY Nucleolar Pattern 1:320 H p-ANCA 1:160 H Myeloperoxidase Ab >100.0 H Double Strand DNA Ab <1 Glomerular Base Memb Ab 8 04/18/17 08:45 WBC Hgb Sodium 143 Potassium 3.5 Chloride 109 H Carbon Dioxide 25 Anion Gap 9 BUN 66 H Creatinine 2.7 H KEELEY Homogeneous Pattern KEELEY Nucleolar Pattern p-ANCA Myeloperoxidase Ab Double Strand DNA Ab Glomerular Base Memb Ab cardio s1s2 reg pulm clear, on nc o2 GI soft ext trace edema neuro awake and alert Impression 1. MYRTLE 2. lower extremity ulcer 3. hypothyroid 4. HTN 5. polymyalgia 6. anemia 7. bradycardia Plan - renal function is starting to improve - kidney biopsy on saturday - follow up hepatitis panel - rheum follow up - creatinine is improving - renal workup in progress - kidney biopsy on saturday Dr Hamilton Problem List - Problems (1) Acute kidney injury Code(s): N17.9 - ACUTE KIDNEY FAILURE, UNSPECIFIED (2) Cellulitis Code(s): L03.90 - CELLULITIS, UNSPECIFIED Qualifiers: Site of cellulitis: extremity Site of cellulitis of extremity: lower extremity Laterality: unspecified laterality Qualified Code(s): L03.119 - Cellulitis of unspecified part of limb (3) Hypothyroid Code(s): E03.9 - HYPOTHYROIDISM, UNSPECIFIED (4) Venous stasis of both lower extremities Code(s): I87.8 - OTHER SPECIFIED DISORDERS OF VEINS
--- NOTE | 2017-04-18 15:54 | PN ---
Teaching Attending Note Name of Resident: Osorio Wilson ATTENDING PHYSICIAN STATEMENT I saw and evaluated the patient. I reviewed the resident's note and discussed the case with the resident. I agree with the resident's findings and plan as documented. SUBJECTIVE: No CP or SOB. No hemoptysis. Intake & Output 04/15/17 04/16/17 04/17/17 04/18/17 23:59 23:59 23:59 23:59 Intake Total 1410 1780 1170 620 Balance 1410 1780 1170 620 Last Vital Signs Temp Pulse Resp BP Pulse Ox 97.7 F 47 L 16 142/75 99 04/18/17 14:15 04/18/17 14:15 04/18/17 14:15 04/18/17 14:15 04/17/17 22:00 Active Medications Collagenase (Santyl -) 1 applic TP DAILY [facility] Last Admin: 04/17/17 10:52 Dose: 1 applic Gentamicin Sulfate (Garamycin 0.1% Ointment -) 1 applic TP DAILY [facility] Last Admin: 04/17/17 10:52 Dose: 1 applic Heparin Sodium (Porcine) (Heparin -) 5,000 unit SQ Q8H-IV [facility] Last Admin: 04/18/17 10:29 Dose: 5,000 unit Insulin Aspart (Novolog Vial Sliding Scale -) 1 vial SQ ACHS [facility] PRN Reason: Protocol Last Admin: 04/18/17 11:50 Dose: 6 units Levothyroxine Sodium (Synthroid -) 100 mcg PO DAILY@0700 [facility] Polyethylene Glycol (Miralax (For Daily Use) -) 17 gm PO DAILY [facility] Last Admin: 04/18/17 10:32 Dose: 17 gm Prednisone (Deltasone -) 40 mg PO BID [facility] Last Admin: 04/18/17 10:32 Dose: 40 mg Valacyclovir HCl (Valtrex -) 500 mg PO BID [facility] Last Admin: 04/18/17 10:32 Dose: 500 mg GEN: AAOx3, NAD HENT: PERRLA, (-) Icterus / Pallor CV: S1, S2 LUNG: CTA ABD: Soft, NT, ND, normoactive BS MSK: B/L 2+ pitting edema, legs wrapped Laboratory Last Values WBC 12.7 K/mm3 (4.0-10.0) H 04/18/17 08:45 RBC 3.67 M/mm3 (3.60-5.2) 04/18/17 08:45 Hgb 10.4 GM/dL (10.7-15.3) L 04/18/17 08:45 Hct 31.1 % (32.4-45.2) L 04/18/17 08:45 MCV 84.8 fl (80-96) 04/18/17 08:45 MCH 28.3 pg (25.7-33.7) 04/18/17 08:45 MCHC 33.4 g/dl (32.0-36.0) 04/18/17 08:45 RDW 16.1 % (11.6-15.6) H 04/18/17 08:45 Plt Count 348 K/MM3 (134-434) 04/18/17 08:45 MPV 8.2 fl (7.5-11.1) 04/18/17 08:45 Neutrophils % 87.5 % (42.8-82.8) H 04/18/17 08:45 Lymphocytes % 7.7 % (8-40) L 04/18/17 08:45 Monocytes % 4.4 % (3.8-10.2) 04/18/17 08:45 Eosinophils % 0.0 % (0-4.5) 04/18/17 08:45 Basophils % 0.4 % (0-2.0) 04/18/17 08:45 Basophilic Stippling 1+ 04/15/17 06:30 ESR 105 mm/hr (0-30) H 04/14/17 07:00 Haptoglobin 431 mg/dL (34-200) H 04/13/17 07:30 PT with INR 12.80 SEC (9.98-11.88) H 04/16/17 05:35 INR 1.16 (0.82-1.09) H 04/16/17 05:35 PTT (Actin FS) 33.6 SECONDS (26.9-34.4) 04/16/17 05:35 Fibrinogen 320.0 mg/dL (238-498) 04/16/17 05:35 Puncture Site Left radial 04/12/17 16:50 ABG pH 7.43 (7.35-7.45) 04/12/17 16:50 ABG pCO2 at Pt Temp 37.1 mmHg (35-45) 04/12/17 16:50 ABG pO2 at Pt Temp 50.8 mmHg (70-100) L 04/12/17 16:50 ABG HCO3 24.1 meq/L (22-26) 04/12/17 16:50 ABG O2 Sat (Measured) 85.9 % (90-98.9) L 04/12/17 16:50 ABG O2 Content 10.4 % vol (15-22) L 04/12/17 16:50 ABG Base Excess 0.4 meq/l (-2-2) 04/12/17 16:50 Aaron Test Positive 04/12/17 16:50 Oxygen Flow Rate room air 04/12/17 16:50 PEEP 0.0 cmH2O 04/12/17 16:50 Sodium 143 mmol/L (136-145) 04/18/17 08:45 Potassium 3.5 mmol/L (3.5-5.1) 04/18/17 08:45 Chloride 109 mmol/L (98-107) H 04/18/17 08:45 Carbon Dioxide 25 mmol/L (21-32) 04/18/17 08:45 Anion Gap 9 (8-16) 04/18/17 08:45 BUN 66 mg/dL (7-18) H 04/18/17 08:45 Creatinine 2.7 mg/dL (0.55-1.02) H 04/18/17 08:45 Creat Clearance w eGFR 17.13 (>60) 04/18/17 08:45 POC Glucometer 236 UNITS (()) 04/18/17 11:26 Random Glucose 186 mg/dL (74-106) H 04/18/17 08:45 Lactic Acid 0.9 mmol/L (0.4-2.0) 04/12/17 18:30 Calcium 8.3 mg/dL (8.5-10.1) L 04/18/17 08:45 Magnesium 2.5 mg/dL (1.8-2.4) H 04/16/17 05:35 Iron 13 ug/dL (27-139) L 04/12/17 14:10 TIBC 163 ug/dL (250-450) L 04/12/17 14:10 Iron Saturation 8 % (15-55) L 04/12/17 14:10 Transferrin 127 mg/dL (200-370) L 04/12/17 14:10 Ferritin Cancelled 04/12/17 14:10 Total Bilirubin 0.5 mg/dL (0.2-1.0) 04/18/17 08:45 AST 7 U/L (15-37) L D 04/18/17 08:45 ALT 24 U/L (12-78) 04/18/17 08:45 Alkaline Phosphatase 72 U/L (45-117) 04/18/17 08:45 LD Total 201 U/L (84-246) 04/13/17 06:15 Creatine Kinase 95 IU/L (26-192) 04/10/17 06:10 Creatine Kinase Index 0.5 % (0.0-5.0) 04/09/17 14:23 CK-MB (CK-2) 1.031 ng/mL (0.5-3.6) 04/09/17 14:23 Troponin I 0.08 ng/ml (0.00-0.05) H 04/10/17 06:10 C-Reactive Protein 10.0 MG/DL (0.00-0.3) H 04/11/17 07:00 Total Protein 6.1 g/dl (6.4-8.2) L 04/18/17 08:45 Albumin 2.5 g/dl (3.4-5.0) L 04/18/17 08:45 [id number] (%) Cancelled 04/17/17 06:20 Gsssn-[id number] (%) Cancelled 04/17/17 06:20 Beta Globulins (%) Cancelled 04/17/17 06:20 Gamma Globulins (%) Cancelled 04/17/17 06:20 M-Kuldip % Cancelled 04/17/17 06:20 Triglycerides 133 mg/dL (35-160) 04/11/17 06:00 Cholesterol 136 mg/dL (50-200) 04/11/17 06:00 Total LDL Cholesterol 79 mg/dL (5-100) 04/11/17 06:00 HDL Cholesterol 31 mg/dL (40-60) L 04/11/17 06:00 TSH 1.91 uIU/ml (0.358-3.74) D 04/17/17 06:20 Free T4 1.93 ng/dl (0.76-1.46) H D 04/17/17 06:20 Free T3 1.7 pg/ml (2.0-4.4) L 04/11/17 11:03 Urine Color Ltyellow 04/16/17 09:00 Urine Appearance Cloudy 04/16/17 09:00 Urine pH 5.0 (5.0-8.0) 04/16/17 09:00 Ur Specific [place] 1.020 (1.005-1.025) 04/16/17 09:00 Urine Protein 2+ (NEGATIVE) H 04/16/17 09:00 Urine Glucose (UA) 2+ (NEGATIVE) H 04/16/17 09:00 Urine Ketones Negative (NEGATIVE) 04/16/17 09:00 Urine Blood 3+ (NEGATIVE) H 04/16/17 09:00 Urine Nitrite Negative (NEGATIVE) 04/16/17 09:00 Urine Bilirubin Negative (NEGATIVE) 04/16/17 09:00 Urine Urobilinogen Negative mg/dL (0.2-1.0) 04/16/17 09:00 Urine RBC 76 /hpf (0-3) 04/16/17 09:00 Urine WBC 30 /hpf (3-5) 04/16/17 09:00 Ur Epithelial Cells Moderate /hpf (FEW) 04/16/17 09:00 Hyaline Casts 4 /lpf 04/16/17 09:00 Granular Casts 4 /lpf 04/16/17 09:00 Urine Mucus Rare 04/16/17 09:00 Urine Yeast Rare 04/16/17 09:00 Urine Eosinophils None seen % (.) 04/15/17 10:00 U Random Total Protein 104 mg/dl (5-11.9) H 04/12/17 09:00 Ur Random Sodium 68 MMOL/L 04/12/17 10:30 Ur Random Potassium 37.2 MMOL/L 04/12/17 10:30 Ur Random Chloride 82 MMOL/L 04/12/17 10:30 Ur Random Urea Nitrogn 571 mg/dL 04/12/17 09:00 Urine Creatinine 89.5 mg/dL (20-320) 04/12/17 10:30 Protein/Creatinin Ratio 0.97 MG/DL 04/12/17 09:00 Stool Occult Blood Negative (NEGATIVE) 04/13/17 11:30 Random Vancomycin 11.499 ug/ml 04/17/17 06:20 KEELEY Screen Positive (.) H 04/11/17 16:30 KEELEY Homogeneous Pattern 1:320 (.) H 04/11/17 16:30 KEELEY Nucleolar Pattern 1:320 (.) H 04/11/17 16:30 KEELEY Speckled Pattern TNP 04/11/17 16:30 KEELEY Centromere Pattern TNP 04/11/17 16:30 c-ANCA <1:20 titer (Neg:<1:20) 04/11/17 16:30 Proteinase 3 (PR3) <3.5 U/mL (0.0-3.5) 04/11/17 16:30 p-ANCA 1:160 titer (Neg:<1:20) H 04/11/17 16:30 Atypical p-ANCA <1:20 titer (Neg:<1:20) 04/11/17 16:30 Myeloperoxidase Ab >100.0 U/mL (0.0-9.0) H 04/11/17 16:30 Double Strand DNA Ab <1 IU/mL (0-9) 04/11/17 16:30 Glomerular Base Memb Ab 8 units (0-20) 04/14/17 07:00 Complement C3 137 mg/dL (82-167) 04/16/17 15:30 Complement C4 24 mg/dL (14-44) 04/16/17 15:30 Tot Complement (CH50) > 65 U/mL (42-60) H 04/14/17 07:00 Ref Test Comments Cancelled 04/17/17 06:20 Blood Type O POSITIVE 04/15/17 09:00 Antibody Screen Positive H 04/15/17 09:00 Antibody Identification TNP 04/15/17 09:00 Crossmatch See Detail 04/15/17 09:00 ASSESSMENT/PLAN: Suspected Microscopic Polyangitis Polymyalgia rheumatica by Hx HTN Hypothyroidism Resolved hemoptysis LE cellulitis Steroids per Reumatology : Prednisone 40mg BID O2 as needed Local wound care VTE prophylaxis Dr Martinez
--- NOTE | 2017-04-18 16:10 | DS ---
Physical Exam: SUBJECTIVE: Patient seen and examined OBJECTIVE: Vital Signs Period Temp Pulse Resp BP Sys/Horn Pulse Ox Last 24 Hr 97.6 F-97.9 F 43-114 16-20 134-175/56-75 99-99 PHYSICAL EXAM GENERAL: The patient is awake, alert, and fully oriented, in no acute distress. HEAD: Normal with no signs of trauma. EYES: PERRL, extraocular movements intact, sclera anicteric, conjunctiva clear. ENT: Ears normal, nares patent, oropharynx clear without exudates, moist mucous membranes. NECK: Trachea midline, full range of motion, supple. LUNGS: Breath sounds equal, clear to auscultation bilaterally, no wheezes, no crackles, no accessory muscle use. HEART: Regular rate and rhythm, S1, S2 without murmur, rub or gallop. ABDOMEN: Soft, nontender, nondistended, normoactive bowel sounds, no guarding, no rebound, no hepatosplenomegaly, no masses. EXTREMITIES: 2+ pulses, warm, well-perfused, no edema. NEUROLOGICAL: Cranial nerves II through XII grossly intact. Normal speech, gait not observed. PSYCH: Normal mood, normal affect. SKIN: Warm, dry, normal turgor, no rashes or lesions noted. LABS Laboratory Results - last 24 hr 04/11/17 04/15/17 04/16/17 16:30 09:00 15:30 WBC RBC Hgb Hct MCV MCH MCHC RDW Plt Count MPV Neutrophils % Lymphocytes % Monocytes % Eosinophils % Basophils % Sodium Potassium Chloride Carbon Dioxide Anion Gap BUN Creatinine Creat Clearance w eGFR POC Glucometer Random Glucose Calcium Total Bilirubin AST ALT Alkaline Phosphatase Total Protein Albumin Urine Eosinophils Cancelled KEELEY Screen Positive H KEELEY Homogeneous Pattern 1:320 H KEELEY Nucleolar Pattern 1:320 H KEELEY Speckled Pattern TNP KEELEY Centromere Pattern TNP c-ANCA <1:20 Proteinase 3 (PR3) <3.5 p-ANCA 1:160 H Atypical p-ANCA <1:20 Myeloperoxidase Ab >100.0 H Double Strand DNA Ab <1 Complement C3 137 Complement C4 24 Blood Type O POSITIVE Antibody Screen Positive H Antibody Identification TNP Crossmatch See Detail 04/17/17 04/17/17 04/17/17 10:44 16:38 21:07 WBC RBC Hgb Hct MCV MCH MCHC RDW Plt Count MPV Neutrophils % Lymphocytes % Monocytes % Eosinophils % Basophils % Sodium Potassium Chloride Carbon Dioxide Anion Gap BUN Creatinine Creat Clearance w eGFR POC Glucometer 269 257 193 Random Glucose Calcium Total Bilirubin AST ALT Alkaline Phosphatase Total Protein Albumin Urine Eosinophils KEELEY Screen KEELEY Homogeneous Pattern KEELEY Nucleolar Pattern KEELEY Speckled Pattern KEELEY Centromere Pattern c-ANCA Proteinase 3 (PR3) p-ANCA Atypical p-ANCA Myeloperoxidase Ab Double Strand DNA Ab Complement C3 Complement C4 Blood Type Antibody Screen Antibody Identification Crossmatch 04/18/17 04/18/17 04/18/17 05:43 08:45 08:45 WBC 12.7 H RBC 3.67 Hgb 10.4 L Hct 31.1 L MCV 84.8 MCH 28.3 MCHC 33.4 RDW 16.1 H Plt Count 348 MPV 8.2 Neutrophils % 87.5 H Lymphocytes % 7.7 L Monocytes % 4.4 Eosinophils % 0.0 Basophils % 0.4 Sodium Cancelled Potassium Cancelled Chloride Cancelled Carbon Dioxide Cancelled Anion Gap Cancelled BUN Cancelled Creatinine Cancelled Creat Clearance w eGFR POC Glucometer 269 Random Glucose Cancelled Calcium Cancelled Total Bilirubin AST ALT Alkaline Phosphatase Total Protein Albumin Urine Eosinophils KEELEY Screen KEELYE Homogeneous Pattern KEELEY Nucleolar Pattern KEELEY Speckled Pattern KEELEY Centromere Pattern c-ANCA Proteinase 3 (PR3) p-ANCA Atypical p-ANCA Myeloperoxidase Ab Double Strand DNA Ab Complement C3 Complement C4 Blood Type Antibody Screen Antibody Identification Crossmatch 04/18/17 04/18/17 08:45 11:26 WBC RBC Hgb Hct MCV MCH MCHC RDW Plt Count MPV Neutrophils % Lymphocytes % Monocytes % Eosinophils % Basophils % Sodium 143 Potassium 3.5 Chloride 109 H Carbon Dioxide 25 Anion Gap 9 BUN 66 H Creatinine 2.7 H Creat Clearance w eGFR 17.13 POC Glucometer 236 Random Glucose 186 H Calcium 8.3 L Total Bilirubin 0.5 AST 7 L D ALT 24 Alkaline Phosphatase 72 Total Protein 6.1 L Albumin 2.5 L Urine Eosinophils KEELEY Screen KEELEY Homogeneous Pattern KEELEY Nucleolar Pattern KEELEY Speckled Pattern KEELEY Centromere Pattern c-ANCA Proteinase 3 (PR3) p-ANCA Atypical p-ANCA Myeloperoxidase Ab Double Strand DNA Ab Complement C3 Complement C4 Blood Type Antibody Screen Antibody Identification Crossmatch HOSPITAL COURSE: Date of Admission:04/09/17 Date of Discharge: 04/18/17 Discharge Summary Reason For Visit: CELLULITIS Current Active Problems Acute hypoxemic respiratory failure (Acute) Acute kidney injury (Acute) Bilateral pulmonary infiltrates on chest x-ray (Acute) Cellulitis (Acute) Elevated troponin (Acute) Goodpasture syndrome (Acute) Hemoptysis (Acute) Hypothyroid (Acute) Sepsis (Acute) Sinus bradycardia (Acute) Vasculitis (Acute) Venous stasis of both lower extremities (Acute) Venous ulcer of right lower extremity with varicose veins (Acute) - Instructions Referrals: Dameon Silvestre MD [Primary Care Provider] - - Home Medications Comprehensive Discharge Medication List: Ambulatory Orders Levothyroxine [Synthroid -] 100 mcg PO DAILY 03/23/14 - Discharge Referral Referred to [facility] No
[2017-04-18 16:29] LABS: ANGIOTENSIN CONVERTING ENZYME 54 U/L (14-82)
[2017-04-18] MEDS: GENTAMICIN SO4 0.1% TOPICAL OINTMENT 15 GM/TUBE TUBE TP SCH (17:08)
[2017-04-18] MEDS: COLLAGENASE CLOSTRIDIUM HIST. 30 GRAMS TUBE TP SCH (17:09)
--- NOTE | 2017-04-18 17:20 | PN ---
Physical Exam: SUBJECTIVE: Patient seen and examined at the bedside. States she feels well. Denies shortness of breath or chest pain. OBJECTIVE: Sinus bradycardia on court monitor between 40-50s Vital Signs Period Temp Pulse Resp BP Sys/Horn Pulse Ox Last 24 Hr 97.6 F-97.9 F 43-114 16-20 134-175/56-75 99-99 GENERAL: The patient is awake, alert, and fully oriented, in no acute distress. HEAD: Normal with no signs of trauma. EYES: PERRL, extraocular movements intact, sclera anicteric, conjunctiva clear. No ptosis. ENT: Ears normal, nares patent, oropharynx clear without exudates, moist mucous membranes. NECK: Trachea midline, full range of motion, supple. LUNGS: Breath sounds equal, clear to auscultation bilaterally, no wheezes, shortness of breath at rest, requires 2 liters of supplemental oxygen HEART: Regular rate and rhythm, ABDOMEN: Soft, nontender, nondistended, normoactive bowel sounds, no guarding, no rebound, no hepatosplenomegaly, no masses. EXTREMITIES: 2+ pulses, warm, well-perfused, no edema. NEUROLOGICAL: Normal speech, gait not observed. PSYCH: Normal mood, normal affect. SKIN: RLE medial open wound clean, pink, no bleeding + pulse on right foot. LLE : dressing cdi, wound not viewed, faint pulse felt on left foot. Laboratory Results - last 24 hr 04/15/17 04/16/17 04/17/17 09:00 15:30 10:44 WBC RBC Hgb Hct MCV MCH MCHC RDW Plt Count MPV Neutrophils % Lymphocytes % Monocytes % Eosinophils % Basophils % Sodium Potassium Chloride Carbon Dioxide Anion Gap BUN Creatinine Creat Clearance w eGFR POC Glucometer 269 Random Glucose Calcium Total Bilirubin AST ALT Alkaline Phosphatase Total Protein Albumin Angiotensin Convert Enz 54 Complement C3 137 Complement C4 24 Blood Type O POSITIVE Antibody Screen Positive H Antibody Identification TNP Crossmatch See Detail 04/17/17 04/17/17 04/18/17 16:38 21:07 05:43 WBC RBC Hgb Hct MCV MCH MCHC RDW Plt Count MPV Neutrophils % Lymphocytes % Monocytes % Eosinophils % Basophils % Sodium Potassium Chloride Carbon Dioxide Anion Gap BUN Creatinine Creat Clearance w eGFR POC Glucometer 257 193 269 Random Glucose Calcium Total Bilirubin AST ALT Alkaline Phosphatase Total Protein Albumin Angiotensin Convert Enz Complement C3 Complement C4 Blood Type Antibody Screen Antibody Identification Crossmatch 04/18/17 04/18/17 04/18/17 08:45 08:45 08:45 WBC 12.7 H RBC 3.67 Hgb 10.4 L Hct 31.1 L MCV 84.8 MCH 28.3 MCHC 33.4 RDW 16.1 H Plt Count 348 MPV 8.2 Neutrophils % 87.5 H Lymphocytes % 7.7 L Monocytes % 4.4 Eosinophils % 0.0 Basophils % 0.4 Sodium Cancelled 143 Potassium Cancelled 3.5 Chloride Cancelled 109 H Carbon Dioxide Cancelled 25 Anion Gap Cancelled 9 BUN Cancelled 66 H Creatinine Cancelled 2.7 H Creat Clearance w eGFR 17.13 POC Glucometer Random Glucose Cancelled 186 H Calcium Cancelled 8.3 L Total Bilirubin 0.5 AST 7 L D ALT 24 Alkaline Phosphatase 72 Total Protein 6.1 L Albumin 2.5 L Angiotensin Convert Enz Complement C3 Complement C4 Blood Type Antibody Screen Antibody Identification Crossmatch 04/18/17 11:26 WBC RBC Hgb Hct MCV MCH MCHC RDW Plt Count MPV Neutrophils % Lymphocytes % Monocytes % Eosinophils % Basophils % Sodium Potassium Chloride Carbon Dioxide Anion Gap BUN Creatinine Creat Clearance w eGFR POC Glucometer 236 Random Glucose Calcium Total Bilirubin AST ALT Alkaline Phosphatase Total Protein Albumin Angiotensin Convert Enz Complement C3 Complement C4 Blood Type Antibody Screen Antibody Identification Crossmatch Active Medications Generic Name Dose Route Start Last Admin Trade Name Byron PRN Reason Stop Dose Admin Collagenase 1 applic 04/10/17 10:00 04/18/17 17:09 Santyl - TP 1 applic DAILY MILES Administration Gentamicin Sulfate 1 applic 04/16/17 10:00 04/18/17 17:08 Garamycin 0.1% Ointment - TP 1 applic DAILY MILES Administration Heparin Sodium (Porcine) 5,000 unit 04/09/17 18:00 04/18/17 17:03 Heparin - SQ 5,000 unit Q8H-IV MILES Administration Insulin Aspart 1 vial 04/17/17 07:36 04/18/17 16:57 Novolog Vial Sliding Scale - SQ 10 units ACHS MILES Administration Protocol Levothyroxine Sodium 100 mcg 04/18/17 07:00 Synthroid - PO DAILY@0700 MILES Polyethylene Glycol 17 gm 04/10/17 10:00 04/18/17 10:32 Miralax (For Daily Use) - PO 17 gm DAILY MILES Administration Prednisone 40 mg 04/17/17 18:30 04/18/17 10:32 Deltasone - PO 40 mg BID MILES Administration Valacyclovir HCl 500 mg 04/15/17 22:00 04/18/17 10:32 Valtrex - PO 500 mg BID MILES Administration ASSESSMENT/PLAN: Patient is a 77 year old female with a past medical history of of non healing chronic RLE venous ulcer, borderline hypertension, polymyalgia, hypothyroidism, sent to ED by Dr. Silvestre for b/l lower extremity cellulitis. Rheumatology: Autoimmune Disease/disorder - rule out vasculitis A/P: Patient with progressive chronic bilateral lower ext ulcers, hematuria, renal disease and had two episodes of hemoptysis Good pasture's ruled out-AntigbmAb negative, immunology studies pending Kidney biopsy to be done on Saturday, ASA stopped Patient followed by weapons specialist If disease continues to progress, may need Cytoxan and plasma plasmapheresis Given Pulse steriods betwen 04/14>04/16, No further treatment for vasculitis until the biospy. On prednisone 40mg PO BID, as per rheum. Repeat BMP in am. Cardiology: Elevated trops/Bradycardia in the 40s A/P: Trops minimally elevated Cardiology notes reviewed, unlikely ACS Bradycardia again today morning Her Synthroid was increased to 112.5mg on 04/13 when TSH levels were elevated, decreased back to home dose of Synthorid 100mcg sofiya Patient states she had "missed some" doses of Synthroid at home Unclear if bradycardia related to increase of Synthroid Colace, Senna, Zofran, Protonix also stopped in case it may be contributing to the bradycardia C D Area Supervisor following/Corporate Relations Manager following ID: Bilateral Lower Ext. Cellulitis - acute on chronic A/P: Hx of chronic LE ulcers secondary to venous stasis Sherin of MRSA, VRE, on contact precautions On Zoysn for LE cellulitis, ID following Vascular following Wound dressing with Santyl Hematology: A/P: Symptomatic anemia - now resolved Blood/Iron studies with anemia of chronic disease S/P 2 units of prbc, now with low stable cbc Blood occult stool negative Monitor CBC Pulmonary: Hemoptysis - now resolved A/P: pulm following Monitor for any further hemoptysis Chest xray with bilateral infiltrates Renal: MYRTLE A/P: Bun/Creat now 2.7 As per renal, pt may need kidney biopsy, ASA stopped, Kidney biopsy on Saturday Renal following Endocrine: Hypothyroidism A/P: TSH elevated Her Synthroid was increased to 112.5mg on 04/13 when TSH levels were elevated, decreased back to home dose of Synthorid 100mcg daily by endocrinology Patient states she had "missed some" doses of Synthroid at home Unclear if bradycardia related to recent increase of Synthroid Colace, Senna, Zofran, Protonix also stopped in case it may be contributing to the bradycardia C D Area Supervisor following/Corporate Relations Manager following Hyperglycemia: Steroid induced hyperglycemia A/P: now on sliding scale, Levemir added Monitor BGMs tid/ac/hs Prophylaxis: DVT: Heparin 5000 SC q8 GI: Protonix F.E.N. Fluids: tolerating PO Electrolytes: monitor Nutrition: low sodium diet Disposition: Full code. Visit type - Emergency Visit Emergency Visit: Yes ED Registration Date: 04/09/17 Care time: The patient presented to the Emergency Department on the above date and was hospitalized for further evaluation of their emergent condition. - New Patient This patient is new to me today: No - Critical Care Critical Care patient: No - Discharge Referral Referred to [facility] Med P.C.: No
--- NOTE | 2017-04-18 17:40 | PN ---
Progress Note (short form) - Note Progress Note: feels well no complaints Vital Signs Period Temp Pulse Resp BP Sys/Horn Pulse Ox Last 24 Hr 97.6 F-97.9 F 43-114 16-20 134-175/56-75 99-99 cor-rrr lungs clear abd soft,nt ext dressing intact CBC, BMP 04/18/17 08:45 04/18/17 08:45 a/p possible microscopic polyangiitis-- positive P-BGLI-gultlsogab workup in progress, followed by pulmonary/rheum/renal renal biopsy Saturday-on po prednisone suspect foot ulcers are vasculitis as well -erythema resolved stable off antibiotics - history of MRSA/pseudomonas-contact isolation anemia-stable small ulcers- ?secondary to diaper, ?hsv, viral culture sent, valtrex started Problem List - Problems (1) Cellulitis Code(s): L03.90 - CELLULITIS, UNSPECIFIED Qualifiers: Site of cellulitis: extremity Site of cellulitis of extremity: lower extremity Laterality: unspecified laterality Qualified Code(s): L03.119 - Cellulitis of unspecified part of limb (2) Acute kidney injury Code(s): N17.9 - ACUTE KIDNEY FAILURE, UNSPECIFIED
[2017-04-19 00:07] LABS: A/G RATIO 0.8 (0.7-1.7); ALBUMIN 2.6 g/dL (2.9-4.4); GLOBULIN, TOTAL 3.3 g/dL (2.2-3.9); M-SPIKE Not Observed g/dL (Not Observed); TOTAL PROTEIN 5.9 g/dL (6.0-8.5)
[2017-04-19] MEDS: HEPARIN NA (PORCINE) 5,000 UNITS/ML 1ML VIAL SQ SCH ×3 (02:14→17:56)
[2017-04-19] MEDS: INSULIN SLIDING SCALE (NOVOLOG) 1 VIAL SQ SCH ×4 (06:43→21:45)
[2017-04-19] MEDS: LEVOTHYROXINE NA 100 MCG TABLET (FP) PO SCH (06:43)
[2017-04-19 08:37] LABS: BASOPHIL 0.2 % (0-2.0); MCH 27.9 pg (25.7-33.7); MCHC 32.9 g/dl (32.0-36.0); MEAN CELL VOLUME 84.8 fl (80-96); MEAN PLT VOLUME 8.3 fl (7.5-11.1); PLATELET COUNT 315 K/MM3 (134-434); RDW 15.9 % (11.6-15.6); WHITE BLOOD COUNT 12.6 K/mm3 (4.0-10.0)
--- NOTE | 2017-04-19 09:03 | PN ---
Progress Note (short form) - Note Progress Note: Feels better No complaints Blood sugar >200s now Vital Signs Period Temp Pulse Resp BP Sys/Horn Pulse Ox Last 24 Hr 97.7 F-98.6 F 43-65 16-18 134-155/54-78 97-97 PE: AO3 NecK: Supple, No JVD HEENT: PERRL, EOMI Lungs: CTA CVS: S1S2 Abd: Benign Ext:trace edema, Dressing both legs Neuro: No focal deficit CMP Sodium 143 mmol/L (136-145) 04/18/17 08:45 Potassium 3.5 mmol/L (3.5-5.1) 04/18/17 08:45 Chloride 109 mmol/L (98-107) H 04/18/17 08:45 Carbon Dioxide 25 mmol/L (21-32) 04/18/17 08:45 Anion Gap 9 (8-16) 04/18/17 08:45 BUN 66 mg/dL (7-18) H 04/18/17 08:45 Creatinine 2.7 mg/dL (0.55-1.02) H 04/18/17 08:45 Creat Clearance w eGFR 17.13 (>60) 04/18/17 08:45 POC Glucometer 222 UNITS (()) 04/19/17 06:41 Random Glucose 186 mg/dL (74-106) H 04/18/17 08:45 Lactic Acid 0.9 mmol/L (0.4-2.0) 04/12/17 18:30 Calcium 8.3 mg/dL (8.5-10.1) L 04/18/17 08:45 Magnesium 2.5 mg/dL (1.8-2.4) H 04/16/17 05:35 Iron 13 ug/dL (27-139) L 04/12/17 14:10 TIBC 163 ug/dL (250-450) L 04/12/17 14:10 Iron Saturation 8 % (15-55) L 04/12/17 14:10 Transferrin 127 mg/dL (200-370) L 04/12/17 14:10 Ferritin Cancelled 04/12/17 14:10 Total Bilirubin 0.5 mg/dL (0.2-1.0) 04/18/17 08:45 AST 7 U/L (15-37) L D 04/18/17 08:45 ALT 24 U/L (12-78) 04/18/17 08:45 Alkaline Phosphatase 72 U/L (45-117) 04/18/17 08:45 LD Total 201 U/L (84-246) 04/13/17 06:15 Creatine Kinase 95 IU/L (26-192) 04/10/17 06:10 Creatine Kinase Index 0.5 % (0.0-5.0) 04/09/17 14:23 CK-MB (CK-2) 1.031 ng/mL (0.5-3.6) 04/09/17 14:23 Troponin I 0.08 ng/ml (0.00-0.05) H 04/10/17 06:10 C-Reactive Protein 10.0 MG/DL (0.00-0.3) H 04/11/17 07:00 Prot Electrophoresis (.) 04/17/17 06:20 Serum Total Protein 5.9 g/dL (6.0-8.5) L 04/17/17 06:20 Total Protein 6.1 g/dl (6.4-8.2) L 04/18/17 08:45 Albumin 2.5 g/dl (3.4-5.0) L 04/18/17 08:45 Globulin 3.3 g/dL (2.2-3.9) 04/17/17 06:20 Albumin/Globulin Ratio 0.8 (0.7-1.7) 04/17/17 06:20 Enhbl-7-Lxdvgtelz 0.4 gm/dL (0.0-0.4) 04/17/17 06:20 Dofhg-7-Cvpldpmen 1.0 gm/dL (0.4-1.0) 04/17/17 06:20 Beta Globulins 0.9 gm/dL (0.7-1.3) 04/17/17 06:20 Gamma Globulins 0.9 gm/dL (0.4-1.8) 04/17/17 06:20 Triglycerides 133 mg/dL (35-160) 04/11/17 06:00 Cholesterol 136 mg/dL (50-200) 04/11/17 06:00 Total LDL Cholesterol 79 mg/dL (5-100) 04/11/17 06:00 HDL Cholesterol 31 mg/dL (40-60) L 04/11/17 06:00 Angiotensin Convert Enz 54 U/L (14-82) 04/16/17 15:30 TSH 1.91 uIU/ml (0.358-3.74) D 04/17/17 06:20 Free T4 1.93 ng/dl (0.76-1.46) H D 04/17/17 06:20 Free T3 1.7 pg/ml (2.0-4.4) L 04/11/17 11:03 Current Medications Generic Name Dose Route Start Last Admin Trade Name Byron PRN Reason Stop Dose Admin Collagenase 1 applic 04/10/17 10:00 04/18/17 17:09 Santyl - TP 1 applic DAILY MILES Administration Gentamicin Sulfate 1 applic 04/16/17 10:00 04/18/17 17:08 Garamycin 0.1% Ointment - TP 1 applic DAILY MILES Administration Heparin Sodium (Porcine) 5,000 unit 04/09/17 18:00 04/19/17 02:14 Heparin - SQ 5,000 unit Q8H-IV MILES Administration Insulin Aspart 1 vial 04/17/17 07:36 04/19/17 06:43 Novolog Vial Sliding Scale - SQ 6 units ACHS MILES Administration Protocol Levothyroxine Sodium 100 mcg 04/18/17 07:00 04/19/17 06:43 Synthroid - PO 100 mcg DAILY@0700 MILES Administration Polyethylene Glycol 17 gm 04/10/17 10:00 04/18/17 10:32 Miralax (For Daily Use) - PO 17 gm DAILY MILES Administration Prednisone 40 mg 04/17/17 18:30 04/18/17 22:37 Deltasone - PO 40 mg BID MILES Administration Valacyclovir HCl 500 mg 04/15/17 22:00 04/18/17 22:37 Valtrex - PO 500 mg BID MILES Administration AP: Hypothyroidism: Normalization of TSH with slightly high FT4 of 1.93 Earlier high TSH secondary to missing doses for few days Will decrease LT4 to 100mcG QD Hyperglycemia sec to steroid Monitor BGM with Novolog Coverage as necessary Blood sugar still suboptimal. Will need to increase Novolog coverage Renal Insufficiency: for Biopsy on Saturday Anemia Lower extremity ulcer
--- NOTE | 2017-04-19 09:42 | PN ---
Physical Exam: PULMONARY CONSULT SUBJECTIVE: Patient seen and examined. Slightly restless last night, but otherwise uneventful. Denies CP, SOB, cough, hemoptysis. OBJECTIVE: Vital Signs Period Temp Pulse Resp BP Sys/Horn Pulse Ox Last 24 Hr 97.7 F-98.6 F 43-65 16-18 134-155/54-78 97-97 GEN: AAOx3, NAD, Lying comfortably HEENT: PERRLA, EOMi CV: S1, S2, bradycardic rate, regular rhythm LUNG: CTABL ABD: Soft, NT, ND, normoactive BS MSK: Both legs wrapped, visible reduced erythema of legs bilaterally Laboratory Last Values WBC 12.6 K/mm3 (4.0-10.0) H 04/19/17 07:35 RBC 3.30 M/mm3 (3.60-5.2) L 04/19/17 07:35 Hgb 9.2 GM/dL (10.7-15.3) L D 04/19/17 07:35 Hct 28.0 % (32.4-45.2) L 04/19/17 07:35 MCV 84.8 fl (80-96) 04/19/17 07:35 MCH 27.9 pg (25.7-33.7) 04/19/17 07:35 MCHC 32.9 g/dl (32.0-36.0) 04/19/17 07:35 RDW 15.9 % (11.6-15.6) H 04/19/17 07:35 Plt Count 315 K/MM3 (134-434) 04/19/17 07:35 MPV 8.3 fl (7.5-11.1) 04/19/17 07:35 Neutrophils % 90.0 % (42.8-82.8) H 04/19/17 07:35 Lymphocytes % 6.3 % (8-40) L 04/19/17 07:35 Monocytes % 3.5 % (3.8-10.2) L 04/19/17 07:35 Eosinophils % 0.0 % (0-4.5) 04/19/17 07:35 Basophils % 0.2 % (0-2.0) 04/19/17 07:35 Basophilic Stippling 1+ 04/15/17 06:30 ESR 35 mm/hr (0-30) H 04/19/17 07:35 Haptoglobin 431 mg/dL (34-200) H 04/13/17 07:30 PT with INR 12.80 SEC (9.98-11.88) H 04/16/17 05:35 INR 1.16 (0.82-1.09) H 04/16/17 05:35 PTT (Actin FS) 33.6 SECONDS (26.9-34.4) 04/16/17 05:35 Fibrinogen 320.0 mg/dL (238-498) 04/16/17 05:35 Puncture Site Left radial 04/12/17 16:50 ABG pH 7.43 (7.35-7.45) 04/12/17 16:50 ABG pCO2 at Pt Temp 37.1 mmHg (35-45) 04/12/17 16:50 ABG pO2 at Pt Temp 50.8 mmHg (70-100) L 04/12/17 16:50 ABG HCO3 24.1 meq/L (22-26) 04/12/17 16:50 ABG O2 Sat (Measured) 85.9 % (90-98.9) L 04/12/17 16:50 ABG O2 Content 10.4 % vol (15-22) L 04/12/17 16:50 ABG Base Excess 0.4 meq/l (-2-2) 04/12/17 16:50 Aaron Test Positive 04/12/17 16:50 Oxygen Flow Rate room air 04/12/17 16:50 PEEP 0.0 cmH2O 04/12/17 16:50 Sodium 143 mmol/L (136-145) 04/19/17 07:35 Potassium 3.9 mmol/L (3.5-5.1) 04/19/17 07:35 Chloride 112 mmol/L (98-107) H 04/19/17 07:35 Carbon Dioxide 22 mmol/L (21-32) 04/19/17 07:35 Anion Gap 9 (8-16) 04/19/17 07:35 BUN 65 mg/dL (7-18) H 04/19/17 07:35 Creatinine 2.3 mg/dL (0.55-1.02) H 04/19/17 07:35 Creat Clearance w eGFR 20.62 (>60) 04/19/17 07:35 POC Glucometer 224 UNITS (()) 04/19/17 16:18 Random Glucose 184 mg/dL (74-106) H 04/19/17 07:35 Lactic Acid 0.9 mmol/L (0.4-2.0) 04/12/17 18:30 Calcium 8.0 mg/dL (8.5-10.1) L 04/19/17 07:35 Magnesium 2.5 mg/dL (1.8-2.4) H 04/16/17 05:35 Iron 13 ug/dL (27-139) L 04/12/17 14:10 TIBC 163 ug/dL (250-450) L 04/12/17 14:10 Iron Saturation 8 % (15-55) L 04/12/17 14:10 Transferrin 127 mg/dL (200-370) L 04/12/17 14:10 Ferritin Cancelled 04/12/17 14:10 Total Bilirubin 0.4 mg/dL (0.2-1.0) 04/19/17 07:35 AST 6 U/L (15-37) L 04/19/17 07:35 ALT 22 U/L (12-78) 04/19/17 07:35 Alkaline Phosphatase 70 U/L (45-117) 04/19/17 07:35 LD Total 201 U/L (84-246) 04/13/17 06:15 Creatine Kinase 95 IU/L (26-192) 04/10/17 06:10 Creatine Kinase Index 0.5 % (0.0-5.0) 04/09/17 14:23 CK-MB (CK-2) 1.031 ng/mL (0.5-3.6) 04/09/17 14:23 Troponin I 0.08 ng/ml (0.00-0.05) H 04/10/17 06:10 C-Reactive Protein 10.0 MG/DL (0.00-0.3) H 04/11/17 07:00 Prot Electrophoresis (.) 04/17/17 06:20 Serum Total Protein 5.9 g/dL (6.0-8.5) L 04/17/17 06:20 Total Protein 5.8 g/dl (6.4-8.2) L 04/19/17 07:35 Albumin 2.4 g/dl (3.4-5.0) L 04/19/17 07:35 Globulin 3.3 g/dL (2.2-3.9) 04/17/17 06:20 Albumin/Globulin Ratio 0.8 (0.7-1.7) 04/17/17 06:20 Iregx-5-Abpkkswap 0.4 gm/dL (0.0-0.4) 04/17/17 06:20 Prwby-1-Oproonpqn 1.0 gm/dL (0.4-1.0) 04/17/17 06:20 Beta Globulins 0.9 gm/dL (0.7-1.3) 04/17/17 06:20 Gamma Globulins 0.9 gm/dL (0.4-1.8) 04/17/17 06:20 Triglycerides 133 mg/dL (35-160) 04/11/17 06:00 Cholesterol 136 mg/dL (50-200) 04/11/17 06:00 Total LDL Cholesterol 79 mg/dL (5-100) 04/11/17 06:00 HDL Cholesterol 31 mg/dL (40-60) L 04/11/17 06:00 Angiotensin Convert Enz 54 U/L (14-82) 04/16/17 15:30 TSH 1.91 uIU/ml (0.358-3.74) D 04/17/17 06:20 Free T4 1.93 ng/dl (0.76-1.46) H D 04/17/17 06:20 Free T3 1.7 pg/ml (2.0-4.4) L 04/11/17 11:03 Urine Color Ltyellow 04/16/17 09:00 Urine Appearance Cloudy 04/16/17 09:00 Urine pH 5.0 (5.0-8.0) 04/16/17 09:00 Ur Specific [place] 1.020 (1.005-1.025) 04/16/17 09:00 Urine Protein 2+ (NEGATIVE) H 04/16/17 09:00 Urine Glucose (UA) 2+ (NEGATIVE) H 04/16/17 09:00 Urine Ketones Negative (NEGATIVE) 04/16/17 09:00 Urine Blood 3+ (NEGATIVE) H 04/16/17 09:00 Urine Nitrite Negative (NEGATIVE) 04/16/17 09:00 Urine Bilirubin Negative (NEGATIVE) 04/16/17 09:00 Urine Urobilinogen Negative mg/dL (0.2-1.0) 04/16/17 09:00 Urine RBC 76 /hpf (0-3) 04/16/17 09:00 Urine WBC 30 /hpf (3-5) 04/16/17 09:00 Ur Epithelial Cells Moderate /hpf (FEW) 04/16/17 09:00 Hyaline Casts 4 /lpf 04/16/17 09:00 Granular Casts 4 /lpf 04/16/17 09:00 Urine Mucus Rare 04/16/17 09:00 Urine Yeast Rare 04/16/17 09:00 Urine Eosinophils None seen % (.) 04/15/17 10:00 U Random Total Protein 104 mg/dl (5-11.9) H 04/12/17 09:00 Ur Random Sodium 68 MMOL/L 04/12/17 10:30 Ur Random Potassium 37.2 MMOL/L 04/12/17 10:30 Ur Random Chloride 82 MMOL/L 04/12/17 10:30 Ur Random Urea Nitrogn 571 mg/dL 04/12/17 09:00 Urine Creatinine 89.5 mg/dL (20-320) 04/12/17 10:30 Protein/Creatinin Ratio 0.97 MG/DL 04/12/17 09:00 Stool Occult Blood Negative (NEGATIVE) 04/13/17 11:30 Random Vancomycin 11.499 ug/ml 04/17/17 06:20 SHEY M-Kuldip Not observed g/dL (Not Observed) 04/17/17 06:20 KEELEY Screen Positive (.) H 04/11/17 16:30 KEELEY Homogeneous Pattern 1:320 (.) H 04/11/17 16:30 KEELEY Nucleolar Pattern 1:320 (.) H 04/11/17 16:30 KEELEY Speckled Pattern TNP 04/11/17 16:30 KEELEY Centromere Pattern TNP 04/11/17 16:30 c-ANCA <1:20 titer (Neg:<1:20) 04/11/17 16:30 Proteinase 3 (PR3) <3.5 U/mL (0.0-3.5) 04/11/17 16:30 p-ANCA 1:160 titer (Neg:<1:20) H 04/11/17 16:30 Atypical p-ANCA <1:20 titer (Neg:<1:20) 04/11/17 16:30 Myeloperoxidase Ab >100.0 U/mL (0.0-9.0) H 04/11/17 16:30 Double Strand DNA Ab <1 IU/mL (0-9) 04/11/17 16:30 Glomerular Base Memb Ab 8 units (0-20) 04/14/17 07:00 Complement C3 137 mg/dL (82-167) 04/16/17 15:30 Complement C4 24 mg/dL (14-44) 04/16/17 15:30 Tot Complement (CH50) > 65 U/mL (42-60) H 04/14/17 07:00 TB Test (QFT) Negative (Negative) 04/17/17 14:20 Blood Type O POSITIVE 04/15/17 09:00 Antibody Screen Positive H 04/15/17 09:00 Antibody Identification TNP 04/15/17 09:00 Crossmatch See Detail 04/15/17 09:00 Active Medications Generic Name Dose Route Start Last Admin Trade Name Byron PRN Reason Stop Dose Admin Collagenase 1 applic 04/10/17 10:00 04/19/17 09:57 Santyl - TP 1 applic DAILY MILES Administration Gentamicin Sulfate 1 applic 04/16/17 10:00 04/19/17 09:57 Garamycin 0.1% Ointment - TP 1 applic DAILY MILES Administration Heparin Sodium (Porcine) 5,000 unit 04/09/17 18:00 04/19/17 09:51 Heparin - SQ 5,000 unit Q8H-IV MILES Administration Insulin Aspart 1 vial 04/17/17 07:36 04/19/17 12:37 Novolog Vial Sliding Scale - SQ 12 units ACHS MILES Administration Protocol Insulin Detemir 8 units 04/19/17 10:00 04/19/17 11:01 Levemir Vial SQ 8 units BID@0700,2200 MILES Administration Levothyroxine Sodium 100 mcg 04/18/17 07:00 04/19/17 06:43 Synthroid - PO 100 mcg DAILY@0700 MILES Administration Polyethylene Glycol 17 gm 04/10/17 10:00 04/19/17 09:57 Miralax (For Daily Use) - PO Not Given DAILY MILES Prednisone 40 mg 04/17/17 18:30 09/29/17 09:51 Deltasone - PO 40 mg BID MILES Administration Valacyclovir HCl 500 mg 04/15/17 22:00 04/19/17 09:51 Valtrex - PO 500 mg BID MILES Administration ASSESSMENT/PLAN: Ms. Chiang is a 77yo F with PMHx of Polymyalgia rheumatica, HTN, Hypothyroidism , admitted for bilateral lower extremity cellulitis. During the hospitalization , she developed hemoptysis, SOB, and hypoxia (86% on RA). 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 Discussed w/ Dr Salmeron. We will continue to follow Osorio Wilson MD - PGY1 Visit type - Emergency Visit Emergency Visit: No - New Patient This patient is new to me today: No - Critical Care Critical Care patient: No - Discharge Referral [facility]erred to [facility] Med P.C.: No
[2017-04-19 09:48] LABS: ALBUMIN 2.4 g/dl (3.4-5.0); ALK PHOS 70 U/L (45-117); ANION GAP 9 (8-16); BILIRUBIN,TOTAL 0.4 mg/dL (0.2-1.0); CO2 22 mmol/L (21-32); CREATININE 2.3 mg/dL (0.55-1.02); GLUCOSE,RANDOM 184 mg/dL (74-106); SGOT/AST 6 U/L (15-37); SGPT/ALT 22 U/L (12-78); TOT PROT 5.8 g/dl (6.4-8.2)
[2017-04-19] MEDS: predniSONE 20 MG TABLET (UD) PO SCH ×2 (09:51→21:44)
[2017-04-19] MEDS: valACYclovir HCL 500 MG TABLET (FP) PO SCH ×2 (09:51→21:43)
[2017-04-19] MEDS: POLYETHYLENE GLYCOL 3350 119 GM BTL PO SCH (09:57)
[2017-04-19] MEDS: COLLAGENASE CLOSTRIDIUM HIST. 30 GRAMS TUBE TP SCH (09:57)
[2017-04-19] MEDS: GENTAMICIN SO4 0.1% TOPICAL OINTMENT 15 GM/TUBE TUBE TP SCH (09:57)
[2017-04-19] MEDS: INSULIN DETEMIR 100 UNITS/ML MDV SQ SCH ×2 (11:01→21:44)
--- NOTE | 2017-04-19 12:31 | PN ---
Teaching Attending Note Name of Resident: Osorio Wilson ATTENDING PHYSICIAN STATEMENT I saw and evaluated the patient. I reviewed the resident's note and discussed the case with the resident. I agree with the resident's findings and plan as documented. pulmonary alert,feeling better,-sob,-cough SUBJECTIVE: Problem List - Problems (1) Acute kidney injury Code(s): N17.9 - ACUTE KIDNEY FAILURE, UNSPECIFIED (2) Cellulitis Code(s): L03.90 - CELLULITIS, UNSPECIFIED Qualifiers: Site of cellulitis: extremity Site of cellulitis of extremity: lower extremity Laterality: unspecified laterality Qualified Code(s): L03.119 - Cellulitis of unspecified part of limb (3) Venous stasis of both lower extremities Code(s): I87.8 - OTHER SPECIFIED DISORDERS OF VEINS (4) Hemoptysis Code(s): R04.2 - HEMOPTYSIS (5) Acute hypoxemic respiratory failure Code(s): J96.01 - ACUTE RESPIRATORY FAILURE WITH HYPOXIA (6) Bilateral pulmonary infiltrates on chest x-ray Code(s): R91.8 - OTHER NONSPECIFIC ABNORMAL FINDING OF LUNG FIELD (7) Vasculitis Code(s): I77.6 - ARTERITIS, UNSPECIFIED Assessment/Plan IMP ACUTE HYPOXEMIC RESPIRATORY FAILURE IMPROVED EXTENSIVE BILATERAL INFILTRATES LIKELY VASCULITIS (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)PULMONARY RENAL SYNDROME HEMOPTYSIS SECONDARY TO ABOVE RESOLVED HTN ANEMIA CHRONIC VENOUS STASIS HYPOTHYROIDISM PLAN PREDNISONE O2 F/U CHEST X-RAYS RENAL BX ON SATURDAY MONITOR H+H DR CORBIN Problem List - Problems (1) Acute kidney injury Code(s): N17.9 - ACUTE KIDNEY FAILURE, UNSPECIFIED (2) Cellulitis Code(s): L03.90 - CELLULITIS, UNSPECIFIED Qualifiers: Site of cellulitis: extremity Site of cellulitis of extremity: lower extremity Laterality: unspecified laterality Qualified Code(s): L03.119 - Cellulitis of unspecified part of limb (3) Venous stasis of both lower extremities Code(s): I87.8 - OTHER SPECIFIED DISORDERS OF VEINS (4) Hemoptysis Code(s): R04.2 - HEMOPTYSIS (5) Acute hypoxemic respiratory failure Code(s): J96.01 - ACUTE RESPIRATORY FAILURE WITH HYPOXIA (6) Bilateral pulmonary infiltrates on chest x-ray Code(s): R91.8 - OTHER NONSPECIFIC ABNORMAL FINDING OF LUNG FIELD (7) Vasculitis Code(s): I77.6 - ARTERITIS, UNSPECIFIED OBJECTIVE: ASSESSMENT AND PLAN: Problem List - Problems (1) Acute kidney injury Code(s): N17.9 - ACUTE KIDNEY FAILURE, UNSPECIFIED (2) Cellulitis Code(s): L03.90 - CELLULITIS, UNSPECIFIED Qualifiers: Site of cellulitis: extremity Site of cellulitis of extremity: lower extremity Laterality: unspecified laterality Qualified Code(s): L03.119 - Cellulitis of unspecified part of limb (3) Venous stasis of both lower extremities Code(s): I87.8 - OTHER SPECIFIED DISORDERS OF VEINS (4) Hemoptysis Code(s): R04.2 - HEMOPTYSIS (5) Acute hypoxemic respiratory failure Code(s): J96.01 - ACUTE RESPIRATORY FAILURE WITH HYPOXIA (6) Bilateral pulmonary infiltrates on chest x-ray Code(s): R91.8 - OTHER NONSPECIFIC ABNORMAL FINDING OF LUNG FIELD (7) Vasculitis Code(s): I77.6 - ARTERITIS, UNSPECIFIED
[2017-04-19 14:15] LABS: QFT TB AG - NIL VALUE <0.01 IU/mL (.); QUANT MITOGEN VALUE 2.28 IU/mL (.); QUANT NIL VALUE 0.04 IU/mL (.); QUANT TB AG VALUE 0.02 IU/mL (.); QUANTIFERON GOLD Negative (Negative)
--- NOTE | 2017-04-19 14:45 | PN ---
Progress Note, Physician History of Present Illness: Pt seen and examined at bedside. She is awake and alert. She denies shortness of breath today. She overall says that she feels better. - Current Medication List Current Medications: Active Medications Collagenase (Santyl -) 1 applic TP DAILY [facility] Last Admin: 04/19/17 09:57 Dose: 1 applic Gentamicin Sulfate (Garamycin 0.1% Ointment -) 1 applic TP DAILY [facility] Last Admin: 04/19/17 09:57 Dose: 1 applic Heparin Sodium (Porcine) (Heparin -) 5,000 unit SQ Q8H-IV [facility] Last Admin: 04/19/17 09:51 Dose: 5,000 unit Insulin Aspart (Novolog Vial Sliding Scale -) 1 vial SQ ACHS [facility] PRN Reason: Protocol Last Admin: 04/19/17 12:37 Dose: 12 units Insulin Detemir (Levemir Vial) 8 units SQ BID@0700,2200 [facility] Last Admin: 04/19/17 11:01 Dose: 8 units Levothyroxine Sodium (Synthroid -) 100 mcg PO DAILY@0700 [facility] Last Admin: 04/19/17 06:43 Dose: 100 mcg Polyethylene Glycol (Miralax (For Daily Use) -) 17 gm PO DAILY [facility] Last Admin: 04/19/17 09:57 Dose: Not Given Prednisone (Deltasone -) 40 mg PO BID [facility] Last Admin: 04/19/17 09:51 Dose: 40 mg Valacyclovir HCl (Valtrex -) 500 mg PO BID [facility] Last Admin: 04/19/17 09:51 Dose: 500 mg - Objective Vital Signs: Vital Signs Temperature 98.0 F 04/19/17 10:00 Pulse Rate 54 L 04/19/17 10:00 Respiratory Rate 16 04/19/17 10:00 Blood Pressure 128/57 04/19/17 10:00 O2 Sat by Pulse Oximetry (%) 95 04/19/17 10:00 Constitutional: Yes: Calm Eyes: Yes: Conjunctiva Clear HENT: Yes: Atraumatic Neck: Yes: Supple Cardiovascular: Yes: S1, S2 Respiratory: Yes: CTA Bilaterally Gastrointestinal: Yes: Soft Genitourinary: Yes: WNL Musculoskeletal: Yes: WNL Edema: Yes Edema: LLE: Trace, RLE: Trace Neurological: Yes: Oriented Psychiatric: Yes: Oriented Labs: CBC, BMP 04/19/17 07:35 04/19/17 07:35 INR, PTT INR 1.16 (0.82-1.09) H 04/16/17 05:35 Fibrinogen 320.0 mg/dL (238-498) 04/16/17 05:35 Problem List - Problems (1) Acute kidney injury Code(s): N17.9 - ACUTE KIDNEY FAILURE, UNSPECIFIED (2) Cellulitis Code(s): L03.90 - CELLULITIS, UNSPECIFIED Qualifiers: Site of cellulitis: extremity Site of cellulitis of extremity: lower extremity Laterality: unspecified laterality Qualified Code(s): L03.119 - Cellulitis of unspecified part of limb (3) Hypothyroid Code(s): E03.9 - HYPOTHYROIDISM, UNSPECIFIED (4) Venous stasis of both lower extremities Code(s): I87.8 - OTHER SPECIFIED DISORDERS OF VEINS Assessment/Plan Current Medications Generic Name Dose Route Start Last Admin Trade Name Freq PRN Reason Stop Dose Admin Collagenase 1 applic 04/10/17 10:00 04/16/17 09:43 Santyl - TP 1 applic DAILY [facility] Administration Docusate Sodium 100 mg 04/10/17 10:00 04/16/17 09:40 Colace - PO Not Given BID [facility] Gentamicin Sulfate 1 applic 04/16/17 10:00 04/16/17 09:43 Garamycin 0.1% Ointment - TP 1 applic DAILY [facility] Administration Heparin Sodium (Porcine) 5,000 unit 04/09/17 18:00 04/16/17 09:42 Heparin - SQ 5,000 unit Q8H-IV [facility] Administration Azithromycin 250 mls @ 250 mls/hr 04/12/17 16:15 04/16/17 11:33 Zithromax 500mg Ivpb (Pre-Docked) IVPB 250 mls/hr DAILY [facility] Administration Piperacillin Sod/Tazobactam 50 mls @ 100 mls/hr 04/15/17 10:15 04/16/17 09:41 Sod 2.25 gm/ Dextrose IVPB 100 mls/hr Q8H-IV [facility] Administration Protocol Insulin Aspart 0 vial 04/16/17 11:00 04/16/17 11:35 Novolog Vial Sliding Scale - SQ 10 unit ACHS [facility] Administration Protocol Levothyroxine Sodium 100 mcg/ 112.5 mcg 04/13/17 07:00 04/16/17 06:28 Levothyroxine Sodium 12.5 mcg PO 112.5 mcg DAILY@0700 [facility] Administration Ondansetron HCl 4 mg 04/10/17 08:46 04/11/17 05:37 Zofran Injection IVPB 4 mg Q6H PRN Administration NAUSEA Pantoprazole Sodium 40 mg 04/14/17 11:45 04/16/17 09:43 Protonix - PO 40 mg DAILY [facility] Administration Polyethylene Glycol 17 gm 04/10/17 10:00 04/16/17 09:40 Miralax (For Daily Use) - PO Not Given DAILY [facility] Senna 1 tab 04/10/17 22:00 04/15/17 22:11 Senna - PO Not Given HS [facility] Valacyclovir HCl 500 mg 04/15/17 22:00 04/16/17 09:43 Valtrex - PO 500 mg BID [facility] Administration Impression 1. 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 lower extremity ulcer 3. hypothyroid 4. HTN 5. polymyalgia 6. anemia Plan - renal function is improving - renal biopsy on Saturday - discussed with medical team - discussed with pulmonary - monitor hg - aspirin is stopped since Saturday of this week Dr Hamilton
--- NOTE | 2017-04-19 16:43 | PN ---
Progress Note (short form) - Note Progress Note: Patient seen and examined She feels well. O/E: General: NAD HEENT: No scleral icterus, no LAD Lungs: CTA b/l ABdomen: soft LE: +bilateral ulcers in dressing.( as per RN, much improved than before) Last Vital Signs Temp Pulse Resp BP Pulse Ox 97.7 F 54 L 18 134/56 99 04/18/17 10:00 04/18/17 10:00 04/18/17 10:00 04/18/17 10:00 04/17/17 22:00 CBC, BMP 04/18/17 08:45 Current Medications Generic Name Dose Route Start Last Admin Trade Name Freq PRN Reason Stop Dose Admin Collagenase 1 applic 04/10/17 10:00 04/17/17 10:52 Santyl - TP 1 applic DAILY [facility] Administration Gentamicin Sulfate 1 applic 04/16/17 10:00 04/17/17 10:52 Garamycin 0.1% Ointment - TP 1 applic DAILY [facility] Administration Heparin Sodium (Porcine) 5,000 unit 04/09/17 18:00 04/18/17 10:29 Heparin - SQ 5,000 unit Q8H-IV [facility] Administration Insulin Aspart 1 vial 04/17/17 07:36 04/18/17 11:50 Novolog Vial Sliding Scale - SQ 6 units ACHS [facility] Administration Protocol Levothyroxine Sodium 100 mcg 04/18/17 07:00 Synthroid - PO DAILY@0700 [facility] Polyethylene Glycol 17 gm 04/10/17 10:00 04/18/17 10:32 Miralax (For Daily Use) - PO 17 gm DAILY [facility] Administration Prednisone 40 mg 04/17/17 18:30 04/18/17 10:32 Deltasone - PO 40 mg BID [facility] Administration Valacyclovir HCl 500 mg 04/15/17 22:00 04/18/17 10:32 Valtrex - PO 500 mg BID [facility] Administration Assessment/Plan: 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 -tranfuse prn, monitor crit -on steroids now, improving -await kidney biopsy on saturday -further treatment of underlying auto-immune etiology as per Rheum -f/u on hep serologies. -encouraged OOB to chair -will follow
--- NOTE | 2017-04-19 17:11 | PN ---
Progress Note, Physician Chief Complaint: Pt A&Ox3; feels fine when sitting, but is short of breath after using the commode. History of Present Illness: 87-year-old black female sent in by Dr. Silvestre for evaluation of nonhealing chronic lower extremity wounds now suggestive of cellulitis. Patient states was seen earlier this week and then again today for redness and swelling of the thumb, bilateral lower extremity wounds and swelling, now with a draining wound to the side of left ankle. Patient denies fever, chills but does state pain and redness to the area. Patient states had an ultrasound a few days ago which was negative for DVT. Patient does have history of MRSA. Patient also states history of chronic venous stasis. Pt has also been increasingly short of breath over the past 2 months; she now becomes winded with minimal exertion. Timing/Duration: getting worse Severity: moderate Associated Symptoms: reports: denies symptoms - Current Medication List Current Medications: Active Medications Collagenase (Santyl -) 1 applic TP DAILY [facility] Last Admin: 04/19/17 09:57 Dose: 1 applic Gentamicin Sulfate (Garamycin 0.1% Ointment -) 1 applic TP DAILY [facility] Last Admin: 04/19/17 09:57 Dose: 1 applic Heparin Sodium (Porcine) (Heparin -) 5,000 unit SQ Q8H-IV [facility] Last Admin: 04/19/17 09:51 Dose: 5,000 unit Insulin Aspart (Novolog Vial Sliding Scale -) 1 vial SQ ACHS [facility] PRN Reason: Protocol Last Admin: 04/19/17 12:37 Dose: 12 units Insulin Detemir (Levemir Vial) 8 units SQ BID@0700,2200 [facility] Last Admin: 04/19/17 11:01 Dose: 8 units Levothyroxine Sodium (Synthroid -) 100 mcg PO DAILY@0700 [facility] Last Admin: 04/19/17 06:43 Dose: 100 mcg Polyethylene Glycol (Miralax (For Daily Use) -) 17 gm PO DAILY [facility] Last Admin: 04/19/17 09:57 Dose: Not Given Prednisone (Deltasone -) 40 mg PO BID [facility] Last Admin: 04/19/17 09:51 Dose: 40 mg Valacyclovir HCl (Valtrex -) 500 mg PO BID [facility] Last Admin: 04/19/17 09:51 Dose: 500 mg - Objective Vital Signs: Vital Signs Temperature 98.3 F 04/19/17 14:51 Pulse Rate 56 L 04/19/17 14:51 Respiratory Rate 18 04/19/17 14:51 Blood Pressure 160/64 04/19/17 14:51 O2 Sat by Pulse Oximetry (%) 95 04/19/17 10:00 Constitutional: Yes: Calm Eyes: Yes: WNL HENT: Yes: WNL Neck: Yes: WNL Cardiovascular: Yes: Bradycardia Respiratory: Yes: Regular, Diminished Gastrointestinal: Yes: Soft ...Rectal Exam: Yes: Deferred Genitourinary: No: Anuria Breast(s): Yes: WNL Musculoskeletal: Yes: Muscle Weakness Extremities: Yes: Cool Edema: Yes Edema: LLE: Trace, RLE: Trace Peripheral Pulses WNL: No Peripheral Pulses: Left Doralis Pedis: 1+, Right Dorsalis Pedis: 1+ Wound/Incision: Yes: Dressing Dry and Intact Neurological: Yes: Alert, Oriented Psychiatric: Yes: Alert, Oriented Labs: CBC, BMP 04/19/17 07:35 04/19/17 07:35 INR, PTT INR 1.16 (0.82-1.09) H 04/16/17 05:35 Fibrinogen 320.0 mg/dL (238-498) 04/16/17 05:35 Abnormal Lab Results 04/17/17 04/19/17 04/19/17 06:20 07:35 07:35 WBC 12.6 H RBC 3.30 L Hgb 9.2 L D Hct 28.0 L RDW 15.9 H Neutrophils % 90.0 H Lymphocytes % 6.3 L Monocytes % 3.5 L ESR Chloride 112 H BUN 65 H Creatinine 2.3 H Random Glucose 184 H Calcium 8.0 L AST 6 L Serum Total Protein 5.9 L Total Protein 5.8 L Albumin 2.6 L 2.4 L 04/19/17 07:35 WBC RBC Hgb Hct RDW Neutrophils % Lymphocytes % Monocytes % ESR 35 H Chloride BUN Creatinine Random Glucose Calcium AST Serum Total Protein Total Protein Albumin - ....Imaging Chest X-ray: Report Reviewed (mild perihilar marking increase; minimal atelectasis increase in right base) Problem List - Problems (1) Acute kidney injury Assessment/Plan: increased CR, though improving (2.9-->2.3); hematuria and proteinuria. Hydration. ASA was stopped in anticipation of renal biopsy. Code(s): N17.9 - ACUTE KIDNEY FAILURE, UNSPECIFIED (2) Elevated troponin Assessment/Plan: 0.11-->0.08; normal CK. No chest pain; no acute EKG changes. ECHO: normal LVEF; moderate bilateral atrial enlargement. Sepsis (PNA), CHF, muscle breakdown may contribute to rise in TNI. Multiple cardiac risks (age; diasatoic CHF; HTN; ?lipids; sedentary). Denies prior cardiac workup. Stress MIBI when stable, if not done recently. Total cholesterol 136 mg/dL; LDL cholesterol 79 mg/dL. Code(s): R74.8 - ABNORMAL LEVELS OF OTHER SERUM ENZYMES (3) Hypothyroid Assessment/Plan: TSH 19.1; free T4 now mildly elevated. Code(s): E03.9 - HYPOTHYROIDISM, UNSPECIFIED (4) Wound infection Assessment/Plan: on Valtrex. Code(s): T14.8 - OTHER INJURY OF UNSPECIFIED BODY REGION L08.9 - LOCAL INFECTION OF THE SKIN AND SUBCUTANEOUS TISSUE, UNSP (5) Sinus bradycardia Assessment/Plan: Asymptomatic sinus bradycardia (HR varies from 40s-60s bpm at rest). Denies dizziness; she is chronically weak. thyroid studies: (free T4 mildly elevated). Pantoprazole, Colace, and Zosyn may all cause slow heart rate; they have been stopped. F/u on telemetry. Inflammatory disease (in this case, vasculitis) may be the etiology of bradycardia. ECHO: normal LVEF; moderate biatrial enlargement; mild MR and TR; mild pulmonary HTN. Code(s): R00.1 - BRADYCARDIA, UNSPECIFIED (6) Hypertension Assessment/Plan: If BP remains elevated, use antihypertensive medications that are not AV conduction blockers. Code(s): I10 - ESSENTIAL (PRIMARY) HYPERTENSION (7) Vasculitis Assessment/Plan: +P-Anca; possible microscopic polyangiitis. On Prednisone. Renal biopsy next week. Code(s): I77.6 - ARTERITIS, UNSPECIFIED
[2017-04-19] MEDS ORDERED: INSULIN (NOVOLOG) ASPART 100 UNITS/ML 10ML VIAL ONE (18:02)
--- NOTE | 2017-04-19 18:15 | PN ---
Physical Exam: SUBJECTIVE: Patient seen and examined. she feels well, resp status improved, sob with ambulation, but around room feels well. OBJECTIVE: Vital Signs Period Temp Pulse Resp BP Sys/Horn Pulse Ox Last 24 Hr 97.9 F-98.6 F 43-65 16-18 128-160/54-65 95-97 PE Neuro: alert, awake, cn 2-12intact Pulm: CTAB CV: s1 s2 rrr no mrg Abd: s nt nd +bs Ext: RLE medial open wound clean, LLE tenderness, wound dry Laboratory Results - last 24 hr 04/15/17 04/17/17 04/17/17 09:00 06:20 14:20 WBC RBC Hgb Hct MCV MCH MCHC RDW Plt Count MPV Neutrophils % Lymphocytes % Monocytes % Eosinophils % Basophils % ESR Sodium Potassium Chloride Carbon Dioxide Anion Gap BUN Creatinine Creat Clearance w eGFR POC Glucometer Random Glucose Calcium Total Bilirubin AST ALT Alkaline Phosphatase Prot Electrophoresis Serum Total Protein 5.9 L Total Protein Albumin 2.6 L Globulin 3.3 Albumin/Globulin Ratio 0.8 Eetxt-4-Pyubgdfnp 0.4 Qmnts-3-Jazskfprq (%) Cancelled Ugphi-2-Mikzuswlh 1.0 Ognel-0-Pzkvhwaqq (%) Cancelled Beta Globulins 0.9 Beta Globulins (%) Cancelled Gamma Globulins 0.9 Gamma Globulins (%) Cancelled M-Kuldip % Cancelled SHEY M-Kuldip Not observed TB Test (QFT) Negative Ref Test Comments Cancelled Blood Type O POSITIVE Antibody Screen Positive H Antibody Identification TNP Crossmatch See Detail 04/18/17 04/19/17 04/19/17 22:35 06:41 07:35 WBC 12.6 H RBC 3.30 L Hgb 9.2 L D Hct 28.0 L MCV 84.8 MCH 27.9 MCHC 32.9 RDW 15.9 H Plt Count 315 MPV 8.3 Neutrophils % 90.0 H Lymphocytes % 6.3 L Monocytes % 3.5 L Eosinophils % 0.0 Basophils % 0.2 ESR Sodium Potassium Chloride Carbon Dioxide Anion Gap BUN Creatinine Creat Clearance w eGFR POC Glucometer 313 222 Random Glucose Calcium Total Bilirubin AST ALT Alkaline Phosphatase Prot Electrophoresis Serum Total Protein Total Protein Albumin Globulin Albumin/Globulin Ratio Vpesc-9-Botghclnn Uovmt-2-Uvfehgttc (%) Bnvdk-3-Smzmwotdh Yhxiw-5-Givqrrlur (%) Beta Globulins Beta Globulins (%) Gamma Globulins Gamma Globulins (%) M-Kuldip % SHEY M-Kuldip TB Test (QFT) Ref Test Comments Blood Type Antibody Screen Antibody Identification Crossmatch 04/19/17 04/19/17 04/19/17 07:35 07:35 11:23 WBC RBC Hgb Hct MCV MCH MCHC RDW Plt Count MPV Neutrophils % Lymphocytes % Monocytes % Eosinophils % Basophils % ESR 35 H Sodium 143 Potassium 3.9 Chloride 112 H Carbon Dioxide 22 Anion Gap 9 BUN 65 H Creatinine 2.3 H Creat Clearance w eGFR 20.62 POC Glucometer 377 Random Glucose 184 H Calcium 8.0 L Total Bilirubin 0.4 AST 6 L ALT 22 Alkaline Phosphatase 70 Prot Electrophoresis Serum Total Protein Total Protein 5.8 L Albumin 2.4 L Globulin Albumin/Globulin Ratio Sambc-2-Plrbykzgp Pzkok-4-Qginmurda (%) Keouu-3-Xavxwdlrm Vichf-9-Iumwsxgmb (%) Beta Globulins Beta Globulins (%) Gamma Globulins Gamma Globulins (%) M-Kuldip % SHEY M-Kuldip TB Test (QFT) Ref Test Comments Blood Type Antibody Screen Antibody Identification Crossmatch Active Medications Generic Name Dose Route Start Last Admin Trade Name Freq PRN Reason Stop Dose Admin Collagenase 1 applic 04/10/17 10:00 04/19/17 09:57 Santyl - TP 1 applic DAILY [facility] Administration Gentamicin Sulfate 1 applic 04/16/17 10:00 04/19/17 09:57 Garamycin 0.1% Ointment - TP 1 applic DAILY [facility] Administration Heparin Sodium (Porcine) 5,000 unit 04/09/17 18:00 04/19/17 17:56 Heparin - SQ 5,000 unit Q8H-IV [facility] Administration Insulin Aspart 1 vial 04/17/17 07:36 04/19/17 17:55 Novolog Vial Sliding Scale - SQ 6 units ACHS [facility] Administration Protocol Insulin Detemir 8 units 04/19/17 10:00 04/19/17 11:01 Levemir Vial SQ 8 units BID@0700,2200 [facility] Administration Levothyroxine Sodium 100 mcg 04/18/17 07:00 04/19/17 06:43 Synthroid - PO 100 mcg DAILY@0700 [facility] Administration Polyethylene Glycol 17 gm 04/10/17 10:00 04/19/17 09:57 Miralax (For Daily Use) - PO Not Given DAILY [facility] Prednisone 40 mg 04/17/17 18:30 04/19/17 09:51 Deltasone - PO 40 mg BID [facility] Administration Valacyclovir HCl 500 mg 04/15/17 22:00 04/19/17 09:51 Valtrex - PO 500 mg BID [facility] Administration Assessment: 77 year old female with a past medical history of of non healing chronic RLE venous ulcer, borderline hypertension, polymyalgia, hypothyroidism, sent to ED by Dr. 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 Plan: 1. 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 Elevated trops - Possible demand, trops flattened - ASA on hold - Stress as outpt 3. Bradycardia - Synthroid decreased to home dose 100mcg - Hold senna, zofran, protonix 4. Bilateral Lower Ext. Cellulitis - Stable off antibiotics - On valtrex, viral cx pending 5. Acute blood loss anemia - Transfused 2UPRBC 04/15 - Transfuse blood for hgb >9 6. Hemoptysis - Resolved - See above 7. MYRTLE on CKD - Cr improved - Biopsy saturday 8. Hypothyroidism - Daily synthroid 9. Hyperglycemia - Due to steroids - Start levemir 8units BID - ISS, BGM ACHS 10. DVT ppx - Heparin sq Visit type - Emergency Visit Emergency Visit: Yes ED Registration Date: 04/09/17 Care time: The patient presented to the Emergency Department on the above date and was hospitalized for further evaluation of their emergent condition. - New Patient This patient is new to me today: No - Critical Care Critical Care patient: No
[2017-04-20] MEDS: HEPARIN NA (PORCINE) 5,000 UNITS/ML 1ML VIAL SQ SCH ×3 (02:10→17:31)
[2017-04-20 06:06] LABS: HEP B SURFACE AB Non Reactive (.)
[2017-04-20] MEDS: INSULIN DETEMIR 100 UNITS/ML MDV SQ SCH ×2 (06:26→21:53)
[2017-04-20] MEDS: INSULIN SLIDING SCALE (NOVOLOG) 1 VIAL SQ SCH ×4 (06:27→21:55)
[2017-04-20] MEDS: LEVOTHYROXINE NA 100 MCG TABLET (FP) PO SCH (06:42)
[2017-04-20] MEDS ORDERED: INSULIN DETEMIR 100 UNITS/ML MDV SQ ONE (07:04)
[2017-04-20 07:05] LABS: BASOPHIL 0.1 % (0-2.0); MCH 28.7 pg (25.7-33.7); MCHC 33.5 g/dl (32.0-36.0); MEAN CELL VOLUME 85.5 fl (80-96); MEAN PLT VOLUME 8.6 fl (7.5-11.1); NEUTROPHILS 89.5 % (42.8-82.8); PLATELET COUNT 290 K/MM3 (134-434); RDW 15.9 % (11.6-15.6); WHITE BLOOD COUNT 11.7 K/mm3 (4.0-10.0)
[2017-04-20] MEDS ORDERED: INSULIN (NOVOLOG) ASPART 100 UNITS/ML 10ML VIAL ONE ×4 (07:05→21:50)
[2017-04-20 07:38] LABS: ALBUMIN 2.3 g/dl (3.4-5.0); ALK PHOS 60 U/L (45-117); ANION GAP 9 (8-16); BILIRUBIN,TOTAL 0.4 mg/dL (0.2-1.0); CO2 23 mmol/L (21-32); CREATININE 2.2 mg/dL (0.55-1.02); GLUCOSE,RANDOM 198 mg/dL (74-106); SGOT/AST 8 U/L (15-37); SGPT/ALT 20 U/L (12-78); TOT PROT 5.6 g/dl (6.4-8.2)
--- NOTE | 2017-04-20 09:00 | PN ---
Progress Note, Physician Chief Complaint: Coverage for Kim Denies CP or SOB History of Present Illness: TELE: NSR, artifact, sinus jolly - Current Medication List Current Medications: Active Medications Collagenase (Santyl -) 1 applic TP DAILY [facility] Last Admin: 04/19/17 09:57 Dose: 1 applic Gentamicin Sulfate (Garamycin 0.1% Ointment -) 1 applic TP DAILY [facility] Last Admin: 04/19/17 09:57 Dose: 1 applic Heparin Sodium (Porcine) (Heparin -) 5,000 unit SQ Q8H-IV [facility] Last Admin: 04/20/17 02:10 Dose: 5,000 unit Insulin Aspart (Novolog Vial Sliding Scale -) 1 vial SQ ACHS [facility] PRN Reason: Protocol Last Admin: 04/20/17 06:27 Dose: 6 units Insulin Detemir (Levemir Vial) 8 units SQ BID@0700,2200 [facility] Last Admin: 04/20/17 06:26 Dose: 8 units Levothyroxine Sodium (Synthroid -) 100 mcg PO DAILY@0700 [facility] Last Admin: 04/20/17 06:42 Dose: 100 mcg Polyethylene Glycol (Miralax (For Daily Use) -) 17 gm PO DAILY [facility] Last Admin: 04/19/17 09:57 Dose: Not Given Prednisone (Deltasone -) 40 mg PO BID [facility] Last Admin: 04/19/17 21:44 Dose: 40 mg Valacyclovir HCl (Valtrex -) 500 mg PO BID [facility] Last Admin: 04/19/17 21:43 Dose: 500 mg - Objective Vital Signs: Vital Signs Temperature 97.9 F 04/20/17 06:00 Pulse Rate 45 L 04/20/17 06:00 Respiratory Rate 16 04/20/17 06:00 Blood Pressure 142/71 04/20/17 06:00 O2 Sat by Pulse Oximetry (%) 98 04/20/17 03:11 Constitutional: Yes: No Distress Cardiovascular: Yes: Regular Rate and Rhythm Respiratory: Yes: CTA Bilaterally Gastrointestinal: Yes: Soft Edema: No Neurological: Yes: Alert, Oriented Labs: CBC, BMP 04/20/17 06:00 04/20/17 06:00 INR, PTT INR 1.16 (0.82-1.09) H 04/16/17 05:35 Fibrinogen 320.0 mg/dL (238-498) 04/16/17 05:35 Laboratory Tests 04/20/17 04/20/17 06:00 06:00 WBC 11.7 H Hgb 9.5 L Plt Count 290 Sodium 143 Potassium 4.2 Anion Gap 9 BUN 58 H Creatinine 2.2 H - ....Imaging EKG: Image Reviewed Assessment/Plan 77 year old female with a past medical history of of non healing chronic RLE venous ulcer, borderline hypertension, polymyalgia, hypothyroidism, sent to ED by Dr. 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 Plan: 1. 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 Elevated troponin: borderline - Possible demand, do not suspect primary [place] - ASA on hold - Stress as outpt 3. Bradycardia - Synthroid adjusted - Hold senna, zofran, protonix 4. Bilateral Lower Ext. Cellulitis - Stable off antibiotics - On valtrex, viral cx pending 5. Acute blood loss anemia - Transfused 2UPRBC 04/15 - Transfuse blood for hgb >9 6. Hemoptysis - Resolved - See above 7. MYRTLE on CKD - Cr improved - Biopsy saturday 8. Hypothyroidism - Daily synthroid 9. Hyperglycemia - Due to steroids - Start levemir 8units BID - ISS, BGM ACHS 10. DVT ppx - Heparin sq
[2017-04-20] MEDS: predniSONE 20 MG TABLET (UD) PO SCH ×2 (09:33→21:52)
[2017-04-20] MEDS: valACYclovir HCL 500 MG TABLET (FP) PO SCH ×2 (09:33→21:52)
[2017-04-20 09:41] LABS: URINE APPEARANCE CLEAR; URINE BILIRUBIN NEGATIVE (NEGATIVE); URINE BLOOD 3+ (NEGATIVE); URINE COLOR STRAW; URINE GLUCOSE (UA) 2+ (NEGATIVE); URINE KETONE NEGATIVE (NEGATIVE); URINE LEUK ESTERASE TRACE (NEGATIVE); URINE NITRITE NEGATIVE (NEGATIVE); URINE UROBILINOGEN NEGATIVE mg/dL (0.2-1.0)
[2017-04-20] MEDS: POLYETHYLENE GLYCOL 3350 119 GM BTL PO SCH (09:41)
[2017-04-20] MEDS: COLLAGENASE CLOSTRIDIUM HIST. 30 GRAMS TUBE TP SCH (09:44)
[2017-04-20] MEDS: GENTAMICIN SO4 0.1% TOPICAL OINTMENT 15 GM/TUBE TUBE TP SCH (09:44)
[2017-04-20 10:10] LABS: URINE PROTEIN 1+ (NEGATIVE)
--- NOTE | 2017-04-20 10:16 | PN ---
Progress Note (short form) - Note Progress Note: PULMONARY SUBJECTIVE IMPROVEMENT NO FURTHER HEMOPTYSIS VSS/AFEBRILE ANICTERIC CLEAR LUNG SANTILLAN S1S2 BS+ NONTENDER EXT 1+ ANKLES/WITH BILATERAL WRAPS LABS/MEDS/NOTES/IMAGING REVIEWED IMP ACUTE HYPOXEMIC RESPIRATORY FAILURE IMPROVED EXTENSIVE BILATERAL INFILTRATES /PULMONARY RENAL SYNDROME HEMOPTYSIS SECONDARY TO ABOVE RESOLVED HTN ANEMIA CHRONIC VENOUS STASIS HYPOTHYROIDISM PLAN PREDNISONE CURRENT DOSE O2 F/U CHEST X-RAYS RENAL BX ON SATURDAY MONITOR H+H R TABATHA KUO
[2017-04-20 10:23] LABS: URINE MUCUS RARE; URINE RBC 37 /hpf (0-3); URINE WBC 20 /hpf (3-5)
--- NOTE | 2017-04-20 12:23 | PN ---
Physical Exam: SUBJECTIVE: Patient seen and examined. She would like to shower and wash her hair. No issues reported overnight Tele: SB 40's OBJECTIVE: Vital Signs Period Temp Pulse Resp BP Sys/Horn Pulse Ox Last 24 Hr 97.7 F-98.3 F 45-56 16-18 142-166/64-80 98-98 PE Neuro: alert, awake, cn 2-12intact Pulm: CTAB CV: s1 s2 rrr no mrg Abd: s nt nd +bs Ext: RLE medial open wound clean, LLE tenderness, wound dry, tender to palpation Laboratory Results - last 24 hr 04/19/17 04/20/17 04/20/17 21:40 06:00 06:00 WBC 11.7 H RBC 3.32 L Hgb 9.5 L Hct 28.4 L MCV 85.5 MCH 28.7 MCHC 33.5 RDW 15.9 H Plt Count 290 MPV 8.6 Neutrophils % 89.5 H Lymphocytes % 7.4 L Monocytes % 3.0 L Eosinophils % 0.0 Basophils % 0.1 Sodium 143 Potassium 4.2 Chloride 111 H Carbon Dioxide 23 Anion Gap 9 BUN 58 H Creatinine 2.2 H Creat Clearance w eGFR 21.70 POC Glucometer 192 Random Glucose 198 H Calcium 8.0 L Total Bilirubin 0.4 AST 8 L D ALT 20 Alkaline Phosphatase 60 Total Protein 5.6 L Albumin 2.3 L Urine Color Urine Appearance Urine pH Urine Protein Urine Glucose (UA) Urine Ketones Urine Blood Urine Nitrite Urine Bilirubin Urine Urobilinogen Urine RBC Urine WBC Urine Mucus Hepatitis A Ab Total Hep Bs Antigen Hep Bs Ab Concentration Hep B Core IgM Ab Hep B Core Ab Interpret Hepatitis C Antibody TB Test (QFT) 04/20/17 04/20/17 04/20/17 06:17 06:50 11:44 WBC RBC Hgb Hct MCV MCH MCHC RDW Plt Count MPV Neutrophils % Lymphocytes % Monocytes % Eosinophils % Basophils % Sodium Potassium Chloride Carbon Dioxide Anion Gap BUN Creatinine Creat Clearance w eGFR POC Glucometer 206 188 Random Glucose Calcium Total Bilirubin AST ALT Alkaline Phosphatase Total Protein Albumin Urine Color Straw Urine Appearance Clear Urine pH 5.0 Urine Protein 1+ H Urine Glucose (UA) 2+ H Urine Ketones Negative Urine Blood 3+ H Urine Nitrite Negative Urine Bilirubin Negative Urine Urobilinogen Negative Urine RBC 37 Urine WBC 20 Urine Mucus Rare Hepatitis A Ab Total Hep Bs Antigen Hep Bs Ab Concentration Hep B Core IgM Ab Hep B Core Ab Interpret Hepatitis C Antibody TB Test (QFT) Active Medications Generic Name Dose Route Start Last Admin Trade Name Byron PRN Reason Stop Dose Admin Collagenase 1 applic 04/10/17 10:00 04/20/17 09:44 Santyl - TP 1 applic DAILY [facility] Administration Gentamicin Sulfate 1 applic 04/16/17 10:00 04/20/17 09:44 Garamycin 0.1% Ointment - TP 1 applic DAILY [facility] Administration Heparin Sodium (Porcine) 5,000 unit 04/09/17 18:00 04/20/17 09:33 Heparin - SQ 5,000 unit Q8H-IV [facility] Administration Insulin Aspart 1 vial 04/17/17 07:36 04/20/17 06:27 Novolog Vial Sliding Scale - SQ 6 units ACHS [facility] Administration Protocol Insulin Detemir 8 units 04/19/17 10:00 04/20/17 06:26 Levemir Vial SQ 8 units BID@0700,2200 [facility] Administration Levothyroxine Sodium 100 mcg 04/18/17 07:00 04/20/17 06:42 Synthroid - PO 100 mcg DAILY@0700 [facility] Administration Polyethylene Glycol 17 gm 04/10/17 10:00 04/20/17 09:41 Miralax (For Daily Use) - PO 17 gm DAILY [facility] Administration Prednisone 40 mg 04/17/17 18:30 04/20/17 09:33 Deltasone - PO 40 mg BID [facility] Administration Valacyclovir HCl 500 mg 04/15/17 22:00 04/20/17 09:33 Valtrex - PO 500 mg BID [facility] Administration Assessment: 77 year old female with a past medical history of of non healing chronic RLE venous ulcer, borderline hypertension, polymyalgia, hypothyroidism, sent to ED by Dr. 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 Plan: 1. 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 Elevated trops - Possible demand, ACS less likely - ASA on hold - Stress as outpt 3. Bradycardia - Synthroid 100mcg - Hold senna, zofran, protonix 4. Bilateral Lower Ext. Cellulitis - Stable off antibiotics - On valtrex, viral cx pending 5. Acute blood loss anemia - Transfused 2UPRBC 04/15 - Transfuse blood for hgb >9 6. Hemoptysis - Resolved - See above 7. MYRTLE on CKD - Cr continues to improve - Biopsy Saturday 8. Hypothyroidism - Daily synthroid 9. Hyperglycemia - Due to steroids - Increase Levemir 10 units BID - ISS, BGM ACHS 10. DVT ppx - Heparin sq Visit type - Emergency Visit Emergency Visit: Yes ED Registration Date: 04/09/17 Care time: The patient presented to the Emergency Department on the above date and was hospitalized for further evaluation of their emergent condition. - New Patient This patient is new to me today: No - Critical Care Critical Care patient: No
--- NOTE | 2017-04-20 15:51 | PN ---
Progress Note, Physician History of Present Illness: Pt seen and examined at bedside. She is awake and alert. She denies shortness of breath. - Current Medication List Current Medications: Active Medications Collagenase (Santyl -) 1 applic TP DAILY [facility] Last Admin: 04/20/17 09:44 Dose: 1 applic Gentamicin Sulfate (Garamycin 0.1% Ointment -) 1 applic TP DAILY [facility] Last Admin: 04/20/17 09:44 Dose: 1 applic Heparin Sodium (Porcine) (Heparin -) 5,000 unit SQ Q8H-IV [facility] Last Admin: 04/20/17 09:33 Dose: 5,000 unit Insulin Aspart (Novolog Vial Sliding Scale -) 1 vial SQ ACHS [facility] PRN Reason: Protocol Last Admin: 04/20/17 12:50 Dose: 2 units Insulin Detemir (Levemir Vial) 8 units SQ BID@0700,2200 [facility] Last Admin: 04/20/17 06:26 Dose: 8 units Levothyroxine Sodium (Synthroid -) 100 mcg PO DAILY@0700 [facility] Last Admin: 04/20/17 06:42 Dose: 100 mcg Polyethylene Glycol (Miralax (For Daily Use) -) 17 gm PO DAILY [facility] Last Admin: 04/20/17 09:41 Dose: 17 gm Prednisone (Deltasone -) 40 mg PO BID [facility] Last Admin: 04/20/17 09:33 Dose: 40 mg Valacyclovir HCl (Valtrex -) 500 mg PO BID [facility] Last Admin: 04/20/17 09:33 Dose: 500 mg - Objective Vital Signs: Vital Signs Temperature 97.8 F 04/20/17 14:14 Pulse Rate 56 L 04/20/17 14:14 Respiratory Rate 18 04/20/17 14:14 Blood Pressure 147/39 04/20/17 14:14 O2 Sat by Pulse Oximetry (%) 96 04/20/17 10:00 Constitutional: Yes: Calm Eyes: Yes: Conjunctiva Clear HENT: Yes: Atraumatic Neck: Yes: Supple Cardiovascular: Yes: S1, S2 Respiratory: Yes: CTA Bilaterally Gastrointestinal: Yes: Soft Genitourinary: Yes: WNL Musculoskeletal: Yes: WNL Edema: Yes Edema: LLE: Trace, RLE: Trace Wound/Incision: Yes: Dressing Dry and Intact Neurological: Yes: Oriented Psychiatric: Yes: Oriented Labs: CBC, BMP 04/20/17 06:00 04/20/17 06:00 INR, PTT INR 1.16 (0.82-1.09) H 04/16/17 05:35 Fibrinogen 320.0 mg/dL (238-498) 04/16/17 05:35 Problem List - Problems (1) Acute kidney injury Code(s): N17.9 - ACUTE KIDNEY FAILURE, UNSPECIFIED (2) Cellulitis Code(s): L03.90 - CELLULITIS, UNSPECIFIED Qualifiers: Site of cellulitis: extremity Site of cellulitis of extremity: lower extremity Laterality: unspecified laterality Qualified Code(s): L03.119 - Cellulitis of unspecified part of limb (3) Hypothyroid Code(s): E03.9 - HYPOTHYROIDISM, UNSPECIFIED (4) Venous stasis of both lower extremities Code(s): I87.8 - OTHER SPECIFIED DISORDERS OF VEINS Assessment/Plan Current Medications Generic Name Dose Route Start Last Admin Trade Name Freq PRN Reason Stop Dose Admin Collagenase 1 applic 04/10/17 10:00 04/20/17 09:44 Santyl - TP 1 applic DAILY [facility] Administration Gentamicin Sulfate 1 applic 04/16/17 10:00 04/20/17 09:44 Garamycin 0.1% Ointment - TP 1 applic DAILY [facility] Administration Heparin Sodium (Porcine) 5,000 unit 04/09/17 18:00 04/20/17 09:33 Heparin - SQ 5,000 unit Q8H-IV [facility] Administration Insulin Aspart 1 vial 04/17/17 07:36 04/20/17 12:50 Novolog Vial Sliding Scale - SQ 2 units ACHS [facility] Administration Protocol Insulin Detemir 8 units 04/19/17 10:00 04/20/17 06:26 Levemir Vial SQ 8 units BID@0700,2200 [facility] Administration Levothyroxine Sodium 100 mcg 04/18/17 07:00 04/20/17 06:42 Synthroid - PO 100 mcg DAILY@0700 [facility] Administration Polyethylene Glycol 17 gm 04/10/17 10:00 04/20/17 09:41 Miralax (For Daily Use) - PO 17 gm DAILY [facility] Administration Prednisone 40 mg 04/17/17 18:30 04/20/17 09:33 Deltasone - PO 40 mg BID [facility] Administration Valacyclovir HCl 500 mg 04/15/17 22:00 04/20/17 09:33 Valtrex - PO 500 mg BID [facility] Administration Impression 1. 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 lower extremity ulcer 3. hypothyroid 4. HTN 5. polymyalgia 6. anemia Plan - renal workup in progress - kidney biopsy on saturday - discussed with medical team - hg is stable - repeat hg in am and repeat type and screen - aspirin is stopped since Saturday of this week Dr Hamilton
--- NOTE | 2017-04-20 21:44 | PN ---
Progress Note (short form) - Note Progress Note: Patient seen and examined Feels better AFVSS Cor: RSR, No murmurs, No gallops Lungs: Clear to P&A Abd: Soft, Normal bowel sounds, No organomegaly Ext:No significant edema Abnormal Lab Results 04/20/17 04/20/17 04/20/17 06:00 06:00 06:50 WBC 11.7 H RBC 3.32 L Hgb 9.5 L Hct 28.4 L RDW 15.9 H Neutrophils % 89.5 H Lymphocytes % 7.4 L Monocytes % 3.0 L Chloride 111 H BUN 58 H Creatinine 2.2 H Random Glucose 198 H Calcium 8.0 L AST 8 L D Total Protein 5.6 L Albumin 2.3 L Urine Protein 1+ H Urine Glucose (UA) 2+ H Urine Blood 3+ H 04/21/17 04/21/17 06:00 06:00 WBC 13.2 H RBC Hgb Hct 32.3 L RDW 15.9 H Neutrophils % Lymphocytes % Monocytes % Chloride 108 H BUN 61 H Creatinine 2.1 H Random Glucose 109 H D Calcium 8.4 L AST Total Protein Albumin Urine Protein Urine Glucose (UA) Urine Blood a/p 77 y/o patient with microscopic polyangiitis, awaiting confirmatory kidney biopsy on saturday clinically improved on teroids check coags last dose of aspirin 04/15
[2017-04-21] MEDS: HEPARIN NA (PORCINE) 5,000 UNITS/ML 1ML VIAL SQ SCH ×2 (02:06→10:13)
[2017-04-21] MEDS: INSULIN DETEMIR 100 UNITS/ML MDV SQ SCH ×2 (06:43→21:18)
--- NOTE | 2017-04-21 06:59 | PN ---
Progress Note, Physician Chief Complaint: TELE: Sinus jolly No CP, SOB - Current Medication List Current Medications: Active Medications Collagenase (Santyl -) 1 applic TP DAILY [facility] Last Admin: 04/20/17 09:44 Dose: 1 applic Gentamicin Sulfate (Garamycin 0.1% Ointment -) 1 applic TP DAILY [facility] Last Admin: 04/20/17 09:44 Dose: 1 applic Heparin Sodium (Porcine) (Heparin -) 5,000 unit SQ Q8H-IV [facility] Last Admin: 04/21/17 02:06 Dose: 5,000 unit Insulin Aspart (Novolog Vial Sliding Scale -) 1 vial SQ ACHS [facility] PRN Reason: Protocol Last Admin: 04/20/17 21:55 Dose: 8 units Insulin Detemir (Levemir Vial) 8 units SQ BID@0700,2200 [facility] Last Admin: 04/21/17 06:43 Dose: 8 units Levothyroxine Sodium (Synthroid -) 100 mcg PO DAILY@0700 [facility] Last Admin: 04/20/17 06:42 Dose: 100 mcg Polyethylene Glycol (Miralax (For Daily Use) -) 17 gm PO DAILY [facility] Last Admin: 04/20/17 09:41 Dose: 17 gm Prednisone (Deltasone -) 40 mg PO BID [facility] Last Admin: 04/20/17 21:52 Dose: 40 mg Valacyclovir HCl (Valtrex -) 500 mg PO BID [facility] Last Admin: 04/20/17 21:52 Dose: 500 mg - Objective Vital Signs: Vital Signs Temperature 98.2 F 04/21/17 06:00 Pulse Rate 50 L 04/21/17 06:00 Respiratory Rate 18 04/21/17 06:00 Blood Pressure 153/74 04/21/17 06:00 O2 Sat by Pulse Oximetry (%) 96 04/20/17 21:00 Constitutional: Yes: No Distress Cardiovascular: Yes: Regular Rate and Rhythm Respiratory: Yes: CTA Bilaterally Gastrointestinal: Yes: Soft Edema: No Neurological: Yes: Alert Labs: INR, PTT INR 1.16 (0.82-1.09) H 04/16/17 05:35 Fibrinogen 320.0 mg/dL (238-498) 04/16/17 05:35 Laboratory Tests 04/21/17 04/21/17 06:00 06:00 WBC 13.2 H Hgb 10.7 D Plt Count 343 Sodium 144 Potassium 4.7 Creatinine 2.1 H Assessment/Plan Assessment/Plan 77 year old female with a past medical history of of non healing chronic RLE venous ulcer, borderline hypertension, polymyalgia, hypothyroidism, sent to ED by Dr. 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 Plan: 1. 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 Elevated troponin: borderline - Possible demand, do not suspect primary [place] - ASA on hold - Stress as outpt 3. Bradycardia - Synthroid adjusted - Hold senna, zofran, protonix 4. Bilateral Lower Ext. Cellulitis - Stable off antibiotics - On valtrex, viral cx pending 5. Acute blood loss anemia - Transfused 2UPRBC 04/15 - Transfuse blood for hgb >9 6. Hemoptysis - Resolved - See above 7. MYRTLE on CKD - Cr improved - Biopsy saturday 8. Hypothyroidism - Daily synthroid 9. Hyperglycemia - Due to steroids Coverage for Kim
[2017-04-21 07:12] LABS: MCH 28.5 pg (25.7-33.7); MCHC 33.2 g/dl (32.0-36.0); MEAN CELL VOLUME 85.8 fl (80-96); PLATELET COUNT 343 K/MM3 (134-434); RDW 15.9 % (11.6-15.6); WHITE BLOOD COUNT 13.2 K/mm3 (4.0-10.0)
[2017-04-21 07:17] LABS: ANION GAP 11 (8-16); CALCIUM 8.4 mg/dL (8.5-10.1); CO2 25 mmol/L (21-32); GLUCOSE,RANDOM 109 mg/dL (74-106)
[2017-04-21 07:18] LABS: CREATININE 2.1 mg/dL (0.55-1.02)
--- NOTE | 2017-04-21 07:59 | PN ---
Physical Exam: SUBJECTIVE: Patient seen and examined. She had a shower yesterday and feels good. Denies SOB. OBJECTIVE: Vital Signs Period Temp Pulse Resp BP Sys/Horn Pulse Ox Last 24 Hr 97.8 F-98.8 F 48-56 16-18 147-164/39-79 96-96 PE Neuro: alert, awake, cn 2-12intact Pulm: CTAB CV: s1 s2 rrr no mrg Abd: s nt nd +bs Ext: RLE medial open wound clean, LLE tenderness, wound dry, tender to palpation CBCD WBC 13.2 K/mm3 (4.0-10.0) H 04/21/17 06:00 RBC 3.76 M/mm3 (3.60-5.2) 04/21/17 06:00 Hgb 10.7 GM/dL (10.7-15.3) D 04/21/17 06:00 Hct 32.3 % (32.4-45.2) L 04/21/17 06:00 MCV 85.8 fl (80-96) 04/21/17 06:00 MCHC 33.2 g/dl (32.0-36.0) 04/21/17 06:00 RDW 15.9 % (11.6-15.6) H 04/21/17 06:00 Plt Count 343 K/MM3 (134-434) 04/21/17 06:00 MPV 9.0 fl (7.5-11.1) 04/21/17 06:00 CMP Sodium 144 mmol/L (136-145) 04/21/17 06:00 Potassium 4.7 mmol/L (3.5-5.1) 04/21/17 06:00 Chloride 108 mmol/L (98-107) H 04/21/17 06:00 Carbon Dioxide 25 mmol/L (21-32) 04/21/17 06:00 Anion Gap 11 (8-16) 04/21/17 06:00 BUN 61 mg/dL (7-18) H 04/21/17 06:00 Creatinine 2.1 mg/dL (0.55-1.02) H 04/21/17 06:00 Creat Clearance w eGFR 21.70 (>60) 04/20/17 06:00 Calcium 8.4 mg/dL (8.5-10.1) L 04/21/17 06:00 Total Bilirubin 0.4 mg/dL (0.2-1.0) 04/20/17 06:00 AST 8 U/L (15-37) L D 04/20/17 06:00 ALT 20 U/L (12-78) 04/20/17 06:00 Alkaline Phosphatase 60 U/L (45-117) 04/20/17 06:00 Total Protein 5.6 g/dl (6.4-8.2) L 04/20/17 06:00 Albumin 2.3 g/dl (3.4-5.0) L 04/20/17 06:00 Active Medications Generic Name Dose Route Start Last Admin Trade Name Byron PRN Reason Stop Dose Admin Collagenase 1 applic 04/10/17 10:00 04/20/17 09:44 Santyl - TP 1 applic DAILY [facility] Administration Gentamicin Sulfate 1 applic 04/16/17 10:00 04/20/17 09:44 Garamycin 0.1% Ointment - TP 1 applic DAILY [facility] Administration Heparin Sodium (Porcine) 5,000 unit 04/09/17 18:00 04/21/17 02:06 Heparin - SQ 5,000 unit Q8H-IV [facility] Administration Insulin Aspart 1 vial 04/17/17 07:36 04/20/17 21:55 Novolog Vial Sliding Scale - SQ 8 units ACHS [facility] Administration Protocol Insulin Detemir 8 units 04/19/17 10:00 04/21/17 06:43 Levemir Vial SQ 8 units BID@0700,2200 [facility] Administration Levothyroxine Sodium 100 mcg 04/18/17 07:00 04/20/17 06:42 Synthroid - PO 100 mcg DAILY@0700 [facility] Administration Polyethylene Glycol 17 gm 04/10/17 10:00 04/20/17 09:41 Miralax (For Daily Use) - PO 17 gm DAILY [facility] Administration Prednisone 40 mg 04/17/17 18:30 04/20/17 21:52 Deltasone - PO 40 mg BID [facility] Administration Valacyclovir HCl 500 mg 04/15/17 22:00 04/20/17 21:52 Valtrex - PO 500 mg BID [facility] Administration Assessment: 77 year old female with a past medical history of of non healing chronic RLE venous ulcer, borderline hypertension, polymyalgia, hypothyroidism, sent to ED by Dr. 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 Plan: 1. 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 Acute blood loss anemia - Hgb stable, type and cross done this AM, good for 24hrs - Transfused 2UPRBC 04/15 - Transfuse for hgb > 3. MYRTLE on CKD - Cr continues to improve - Biopsy tomorrow 4. Elevated trops - Possible demand, ACS less likely - ASA on hold - Stress as outpt 5. Bradycardia - Synthroid 100mcg - Hold senna, zofran, protonix 6. Bilateral Lower Ext. Cellulitis - Stable off antibiotics - On valtrex, viral cx pending 7. Hemoptysis - Resolved - See above 8. Hypothyroidism - Daily synthroid 9. Hyperglycemia - Due to steroids - Sugars improved, maintain levemir dose 10units BID - ISS, BGM ACHS 10. PPX - Hold Evening Heparin dose - NPO after midnight Visit type - Emergency Visit Emergency Visit: Yes ED Registration Date: 04/09/17 Care time: The patient presented to the Emergency Department on the above date and was hospitalized for further evaluation of their emergent condition. - New Patient This patient is new to me today: No - Critical Care Critical Care patient: No
[2017-04-21] MEDS: INSULIN SLIDING SCALE (NOVOLOG) 1 VIAL SQ SCH ×4 (08:09→21:17)
[2017-04-21] MEDS: LEVOTHYROXINE NA 100 MCG TABLET (FP) PO SCH (08:13)
[2017-04-21] MEDS: predniSONE 20 MG TABLET (UD) PO SCH ×2 (10:13→21:17)
[2017-04-21] MEDS: POLYETHYLENE GLYCOL 3350 119 GM BTL PO SCH (10:14)
[2017-04-21] MEDS: GENTAMICIN SO4 0.1% TOPICAL OINTMENT 15 GM/TUBE TUBE TP SCH (10:14)
[2017-04-21] MEDS: COLLAGENASE CLOSTRIDIUM HIST. 30 GRAMS TUBE TP SCH (10:15)
[2017-04-21] MEDS: valACYclovir HCL 500 MG TABLET (FP) PO SCH ×2 (10:15→21:17)
--- NOTE | 2017-04-21 10:21 | PN ---
Progress Note (short form) - Note Progress Note: PULMONARY SUBJECTIVE IMPROVEMENT NO FURTHER HEMOPTYSIS CR IMPROVING ON STEROIDS VSS/AFEBRILE ANICTERIC CLEAR LUNG SANTILLAN S1S2 BS+ NONTENDER EXT 1+ ANKLES/WITH BILATERAL WRAPS LABS/MEDS/NOTES/IMAGING REVIEWED IMP ACUTE HYPOXEMIC RESPIRATORY FAILURE IMPROVED EXTENSIVE BILATERAL INFILTRATES /PULMONARY RENAL SYNDROME HEMOPTYSIS SECONDARY TO ABOVE RESOLVED HTN ANEMIA CHRONIC VENOUS STASIS HYPOTHYROIDISM PLAN PREDNISONE CURRENT DOSE O2 F/U CHEST X-RAYS RENAL BX ON SATURDAY MONITOR H+H R TABATHA KUO
--- NOTE | 2017-04-21 16:41 | PN ---
Progress Note, Physician History of Present Illness: Pt seen and examined at bedside. She has no complaints. She feels that her breathing is improved. - Current Medication List Current Medications: Active Medications Collagenase (Santyl -) 1 applic TP DAILY [facility] Last Admin: 04/21/17 10:15 Dose: 1 applic Gentamicin Sulfate (Garamycin 0.1% Ointment -) 1 applic TP DAILY [facility] Last Admin: 04/21/17 10:14 Dose: 1 applic Insulin Aspart (Novolog Vial Sliding Scale -) 1 vial SQ ACHS [facility] PRN Reason: Protocol Last Admin: 04/21/17 11:48 Dose: 6 units Insulin Detemir (Levemir Vial) 8 units SQ BID@0700,2200 [facility] Last Admin: 04/21/17 06:43 Dose: 8 units Levothyroxine Sodium (Synthroid -) 100 mcg PO DAILY@0700 [facility] Last Admin: 04/21/17 08:13 Dose: 100 mcg Polyethylene Glycol (Miralax (For Daily Use) -) 17 gm PO DAILY [facility] Last Admin: 04/21/17 10:14 Dose: 17 gm Prednisone (Deltasone -) 40 mg PO BID [facility] Last Admin: 04/21/17 10:13 Dose: 40 mg Valacyclovir HCl (Valtrex -) 500 mg PO BID [facility] Last Admin: 04/21/17 10:15 Dose: 500 mg - Objective Vital Signs: Vital Signs Temperature 97.7 F 04/21/17 13:38 Pulse Rate 55 L 04/21/17 13:38 Respiratory Rate 20 04/21/17 13:38 Blood Pressure 170/81 04/21/17 13:38 O2 Sat by Pulse Oximetry (%) 96 04/21/17 15:10 Constitutional: Yes: Calm Eyes: Yes: Conjunctiva Clear HENT: Yes: Atraumatic Cardiovascular: Yes: S1, S2 Respiratory: Yes: CTA Bilaterally Gastrointestinal: Yes: Soft Genitourinary: Yes: WNL Edema: Yes Edema: LLE: Trace, RLE: Trace Neurological: Yes: Oriented Psychiatric: Yes: Oriented Labs: CBC, BMP 04/21/17 06:00 04/21/17 06:00 INR, PTT INR 1.16 (0.82-1.09) H 04/16/17 05:35 Fibrinogen 320.0 mg/dL (238-498) 04/16/17 05:35 Problem List - Problems (1) Acute kidney injury Code(s): N17.9 - ACUTE KIDNEY FAILURE, UNSPECIFIED (2) Cellulitis Code(s): L03.90 - CELLULITIS, UNSPECIFIED Qualifiers: Site of cellulitis: extremity Site of cellulitis of extremity: lower extremity Laterality: unspecified laterality Qualified Code(s): L03.119 - Cellulitis of unspecified part of limb; L03.119 - Cellulitis of unspecified part of limb (3) Hypothyroid Code(s): E03.9 - HYPOTHYROIDISM, UNSPECIFIED (4) Venous stasis of both lower extremities Code(s): I87.8 - OTHER SPECIFIED DISORDERS OF VEINS Assessment/Plan Current Medications Generic Name Dose Route Start Last Admin Trade Name Freq PRN Reason Stop Dose Admin Collagenase 1 applic 04/10/17 10:00 04/21/17 10:15 Santyl - TP 1 applic DAILY [facility] Administration Gentamicin Sulfate 1 applic 04/16/17 10:00 04/21/17 10:14 Garamycin 0.1% Ointment - TP 1 applic DAILY [facility] Administration Insulin Aspart 1 vial 04/17/17 07:36 04/21/17 11:48 Novolog Vial Sliding Scale - SQ 6 units ACHS [facility] Administration Protocol Insulin Detemir 8 units 04/19/17 10:00 04/21/17 06:43 Levemir Vial SQ 8 units BID@0700,2200 [facility] Administration Levothyroxine Sodium 100 mcg 04/18/17 07:00 04/21/17 08:13 Synthroid - PO 100 mcg DAILY@0700 [facility] Administration Polyethylene Glycol 17 gm 04/10/17 10:00 04/21/17 10:14 Miralax (For Daily Use) - PO 17 gm DAILY [facility] Administration Prednisone 40 mg 04/17/17 18:30 04/21/17 10:13 Deltasone - PO 40 mg BID [facility] Administration Valacyclovir HCl 500 mg 04/15/17 22:00 04/21/17 10:15 Valtrex - PO 500 mg BID [facility] Administration Impression 1. 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 lower extremity ulcer 3. hypothyroid 4. HTN 5. polymyalgia 6. anemia Plan - kidney biopsy tomorrow - repeat labs in am - type and cross done - hg is improved - renal function stabilizing - discussed with hospitalist - aspirin is stopped since Saturday of this week Dr Hamilton
[2017-04-21] MEDS ORDERED: hydrALAZINE HCL 10 MG TABLET PO SCH (16:45)
[2017-04-21] MEDS ORDERED: INSULIN (NOVOLOG) ASPART 100 UNITS/ML 10ML VIAL ONE ×2 (18:08→21:16)
[2017-04-21] MEDS ORDERED: PT OWN MED DRAWER 7, Y5N ONE ×2 (18:08→21:16)
[2017-04-22] MEDS: INSULIN SLIDING SCALE (NOVOLOG) 1 VIAL SQ SCH ×4 (06:38→21:40)
[2017-04-22] MEDS: LEVOTHYROXINE NA 100 MCG TABLET (FP) PO SCH (06:38)
[2017-04-22] MEDS: INSULIN DETEMIR 100 UNITS/ML MDV SQ SCH ×2 (06:38→21:39)
[2017-04-22 07:30] LABS: BASOPHIL 0.2 % (0-2.0); MCH 28.4 pg (25.7-33.7); MEAN CELL VOLUME 86.1 fl (80-96); PLATELET COUNT 289 K/MM3 (134-434); RDW 16.2 % (11.6-15.6); WHITE BLOOD COUNT 11.9 K/mm3 (4.0-10.0)
[2017-04-22 07:43] LABS: INR 1.1 (0.82-1.09); PROTHROMBIN TIME (PATIENT) 12.1 SEC (9.98-11.88)
[2017-04-22 07:46] LABS: ACTIVATED PTT 24.2 SECONDS (26.9-34.4)
--- NOTE | 2017-04-22 08:39 | PN ---
Physical Exam: SUBJECTIVE: Patient seen and examined. She slept fine and says she feels fine. Her lower extremities tenderness is improved. She is ready for her bx. OBJECTIVE: Vital Signs Period Temp Pulse Resp BP Sys/Horn Pulse Ox Last 24 Hr 97.6 F-98.3 F 48-68 18-20 145-170/70-89 96-96 PE Neuro: alert, awake, cn 2-12intact Pulm: CTAB CV: s1 s2 rrr no mrg Abd: s nt nd +bs Ext: RLE medial wound clean, LLE tenderness-improved, dry +1 pitting edema Laboratory Results - last 24 hr 04/21/17 04/21/17 04/21/17 10:27 11:46 16:14 WBC RBC Hgb Hct MCV MCH MCHC RDW Plt Count MPV Neutrophils % Lymphocytes % Monocytes % Eosinophils % Basophils % PT with INR INR PTT (Actin FS) Fibrinogen POC Glucometer 207 208 Blood Type O POSITIVE Antibody Screen Negative 04/21/17 04/22/17 04/22/17 20:33 06:00 06:00 WBC 11.9 H RBC 3.59 L Hgb 10.2 L Hct 30.9 L MCV 86.1 MCH 28.4 MCHC 33.0 RDW 16.2 H Plt Count 289 MPV 9.0 Neutrophils % 91.0 H Lymphocytes % 6.1 L Monocytes % 2.7 L Eosinophils % 0.0 Basophils % 0.2 PT with INR 12.10 H INR 1.10 PTT (Actin FS) 24.2 L Fibrinogen POC Glucometer 221 Blood Type Antibody Screen 04/22/17 04/22/17 06:00 06:13 WBC RBC Hgb Hct MCV MCH MCHC RDW Plt Count MPV Neutrophils % Lymphocytes % Monocytes % Eosinophils % Basophils % PT with INR INR PTT (Actin FS) Fibrinogen 249.0 D POC Glucometer 185 Blood Type Antibody Screen Active Medications Generic Name Dose Route Start Last Admin Trade Name Freq PRN Reason Stop Dose Admin Collagenase 1 applic 04/10/17 10:00 04/21/17 10:15 Santyl - TP 1 applic DAILY MILES Administration Gentamicin Sulfate 1 applic 04/16/17 10:00 04/21/17 10:14 Garamycin 0.1% Ointment - TP 1 applic DAILY MILES Administration Hydralazine HCl 10 mg 04/21/17 16:45 04/21/17 16:55 Apresoline - PO 10 mg DAILY MILES Administration Insulin Aspart 1 vial 04/17/17 07:36 04/22/17 06:38 Novolog Vial Sliding Scale - SQ Not Given [facility] Protocol Insulin Detemir 8 units 04/19/17 10:00 04/22/17 06:38 Levemir Vial SQ Not Given BID@0700,2200 [facility] Levothyroxine Sodium 100 mcg 04/18/17 07:00 04/22/17 06:38 Synthroid - PO 100 mcg DAILY@0700 MILES Administration Polyethylene Glycol 17 gm 04/10/17 10:00 04/21/17 10:14 Miralax (For Daily Use) - PO 17 gm DAILY MILES Administration Prednisone 40 mg 04/17/17 18:30 04/21/17 21:17 Deltasone - PO 40 mg BID MILES Administration Valacyclovir HCl 500 mg 04/15/17 22:00 04/21/17 21:17 Valtrex - PO 500 mg BID MILES Administration Assessment: 77 year old female with a past medical history of of non healing chronic RLE venous ulcer, borderline hypertension, polymyalgia, hypothyroidism, sent to ED by Dr. 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 Plan: 1. 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 Acute blood loss anemia - Hgb stable this am - Type and cross good for 24hr - Transfused 2UPRBC 04/15 - Trend CBC following bx 3. HTN - Start hydralazine 10mg BID 4. MYRTLE on CKD - Cr stable - Biopsy today 5. Elevated trops - Possible demand, ACS less likely - ASA on hold - Stress as outpt 6. Bradycardia - HR in 60's this AM - Hold senna, zofran, protonix 7. Bilateral Lower Ext. Cellulitis - Improved, off abx - On valtrex, viral cx pending 8. Hemoptysis - Resolved - See above 9. Hypothyroidism - Synthroid 100mcg 10. Hyperglycemia - Due to steroids - Sugars improved, maintain levemir dose 10units BID - ISS, BGM ACHS - Check hgb a1c 11. PPX - NPO - Resume diabetic diet after - Will hold heparin until 24hr post bx Visit type - Emergency Visit Emergency Visit: Yes ED Registration Date: 04/09/17 Care time: The patient presented to the Emergency Department on the above date and was hospitalized for further evaluation of their emergent condition. - New Patient This patient is new to me today: No - Critical Care Critical Care patient: No
[2017-04-22] MEDS: COLLAGENASE CLOSTRIDIUM HIST. 30 GRAMS TUBE TP SCH (09:51)
[2017-04-22] MEDS: GENTAMICIN SO4 0.1% TOPICAL OINTMENT 15 GM/TUBE TUBE TP SCH (09:51)
[2017-04-22] MEDS: POLYETHYLENE GLYCOL 3350 119 GM BTL PO SCH (09:51)
[2017-04-22] MEDS: predniSONE 20 MG TABLET (UD) PO SCH ×2 (09:51→21:40)
[2017-04-22] MEDS: valACYclovir HCL 500 MG TABLET (FP) PO SCH ×2 (09:52→21:41)
[2017-04-22] MEDS ORDERED: hydrALAZINE HCL 10 MG TABLET PO SCH (10:00)
--- NOTE | 2017-04-22 10:33 | PN ---
Physical Exam: SUBJECTIVE: AM: Patient is now in IR for kidney biospy. As per the RN, there were no acute overnight events. PM: Patient came back from the IR. Has no complaints. Is eating now and tolerating well. Denies chest pain, sob, cough, palpitation, abdominal pain, nausea or vomiting. Bowel/Bladder habit normal. OBJECTIVE: Vital Signs Period Temp Pulse Resp BP Sys/Horn Pulse Ox Last 24 Hr 97.6 F-98.3 F 48-68 18-20 147-170/74-89 96-96 GENERAL: Patient is sitting comfortably in bed, eating her lunch, awake, alert, and fully oriented, in no acute distress. HEAD: Normal with no signs of trauma. EYES: EOM intact, no pallor or icterus. ENT: Ears normal, moist mucous membranes. NECK: Supple. LUNGS: Breath sounds equal, clear to auscultation bilaterally, no wheezes, no crackles, no accessory muscle use. HEART:Regular rate and rhythm, S1, S2 without murmur. ABDOMEN: Soft, nontender, nondistended, normoactive bowel sounds, no guarding, no rebound, no hepatosplenomegaly, no masses. UPPER EXTREMITIES: 2+ pulses, warm, well-perfused, no edema. LOWER EXTREMITIES: Dressing applied in both lower extremities. 2+ pulses, warm, well-perfused, b/l pitting edema. NEUROLOGICAL: No facial droop. Normal speech, gait not observed. PSYCH: Normal mood, normal affect. SKIN: B/L dressing applied in the lower extremities, Warm, dry, normal turgor, no rashes or lesions noted Laboratory Results - last 24 hr 04/21/17 04/21/17 04/21/17 10:27 11:46 16:14 WBC RBC Hgb Hct MCV MCH MCHC RDW Plt Count MPV Neutrophils % Lymphocytes % Monocytes % Eosinophils % Basophils % PT with INR INR PTT (Actin FS) Fibrinogen POC Glucometer 207 208 Blood Type O POSITIVE Antibody Screen Negative 04/21/17 04/22/17 04/22/17 20:33 06:00 06:00 WBC 11.9 H RBC 3.59 L Hgb 10.2 L Hct 30.9 L MCV 86.1 MCH 28.4 MCHC 33.0 RDW 16.2 H Plt Count 289 MPV 9.0 Neutrophils % 91.0 H Lymphocytes % 6.1 L Monocytes % 2.7 L Eosinophils % 0.0 Basophils % 0.2 PT with INR 12.10 H INR 1.10 PTT (Actin FS) 24.2 L Fibrinogen POC Glucometer 221 Blood Type Antibody Screen 04/22/17 04/22/17 06:00 06:13 WBC RBC Hgb Hct MCV MCH MCHC RDW Plt Count MPV Neutrophils % Lymphocytes % Monocytes % Eosinophils % Basophils % PT with INR INR PTT (Actin FS) Fibrinogen 249.0 D POC Glucometer 185 Blood Type Antibody Screen Active Medications Generic Name Dose Route Start Last Admin Trade Name Julioq PRN Reason Stop Dose Admin Collagenase 1 applic 04/10/17 10:00 04/22/17 09:51 Santyl - TP 1 applic DAILY MILES Administration Gentamicin Sulfate 1 applic 04/16/17 10:00 04/22/17 09:51 Garamycin 0.1% Ointment - TP 1 applic DAILY MILES Administration Hydralazine HCl 10 mg 04/22/17 10:00 04/22/17 09:51 Apresoline - PO 10 mg BID MILES Administration Insulin Aspart 1 vial 04/17/17 07:36 04/22/17 06:38 Novolog Vial Sliding Scale - SQ Not Given ACHS [facility] Protocol Insulin Detemir 8 units 04/19/17 10:00 04/22/17 06:38 Levemir Vial SQ Not Given BID@0700,2200 MILES Levothyroxine Sodium 100 mcg 04/18/17 07:00 04/22/17 06:38 Synthroid - PO 100 mcg DAILY@0700 MILES Administration Polyethylene Glycol 17 gm 04/10/17 10:00 04/22/17 09:51 Miralax (For Daily Use) - PO Not Given DAILY MILES Prednisone 40 mg 04/17/17 18:30 04/22/17 09:51 Deltasone - PO 40 mg BID MILES Administration Valacyclovir HCl 500 mg 04/15/17 22:00 04/22/17 09:52 Valtrex - PO 500 mg BID MILES Administration Patient is a 77 year- old- female with a past medical history of of non healing chronic RLE venous ulcer, borderline hypertension, polymyalgia, hypothyroidism, sent to ED by Dr. Silvestre for b/l lower extremity cellulitis. ASSESSMENT 1. 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 Bradycardia 4. Hyperglycemia secondary to steroid use 5. Cellulitis of bilateral lower extremity 6. Hypothyroidism 7. B/L Infiltrates 8. 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 Myeloperoxidase + P-Anca +, C3 and C4 is normal. Good pasture's ruled out-AntigbmAb negative Less likely Lupus nephritis since AntidsDNA is negative. Kidney function is improving, creatinine 2.1 (04/21/2017) . Will do a CBC and BMP at 5pm and if creatinine is rising and Hb drops, night team- please repeat it. Kidney Biopsy done today, no complications. On prednisone 40mg PO BID, as per rheum. No further treatment for vasculitis until the biopsy. Repeat BMP in am. Thank you for the consultative opportunity. Case to be discussed with Dr. Hamilton. Visit type - Emergency Visit Emergency Visit: Yes ED Registration Date: 04/09/17 Care time: The patient presented to the Emergency Department on the above date and was hospitalized for further evaluation of their emergent condition. - New Patient This patient is new to me today: No - Critical Care Critical Care patient: No
--- NOTE | 2017-04-22 13:33 | PN ---
Physical Exam: PULMONARY CONSULT SUBJECTIVE: Patient seen and examined. Just came back from biopsy. Feels good. No CP, no SOB, no hemoptysis OBJECTIVE: Vital Signs Period Temp Pulse Resp BP Sys/Horn Pulse Ox Last 24 Hr 97.6 F-98.3 F 46-68 14-26 147-188/74-91 96-100 GEN: AAOx3, NAD, Lying comfortably HEENT: PERRLA, EOMi CV: S1, S2, bradycardic rate, regular rhythm LUNG: CTABL ABD: Soft, NT, ND, normoactive BS MSK: Both legs wrapped, visible reduced erythema of legs bilaterally Laboratory Last Values WBC 11.9 K/mm3 (4.0-10.0) H 04/22/17 06:00 RBC 3.59 M/mm3 (3.60-5.2) L 04/22/17 06:00 Hgb 10.2 GM/dL (10.7-15.3) L 04/22/17 06:00 Hct 30.9 % (32.4-45.2) L 04/22/17 06:00 MCV 86.1 fl (80-96) 04/22/17 06:00 MCH 28.4 pg (25.7-33.7) 04/22/17 06:00 MCHC 33.0 g/dl (32.0-36.0) 04/22/17 06:00 RDW 16.2 % (11.6-15.6) H 04/22/17 06:00 Plt Count 289 K/MM3 (134-434) 04/22/17 06:00 MPV 9.0 fl (7.5-11.1) 04/22/17 06:00 Neutrophils % 91.0 % (42.8-82.8) H 04/22/17 06:00 Lymphocytes % 6.1 % (8-40) L 04/22/17 06:00 Monocytes % 2.7 % (3.8-10.2) L 04/22/17 06:00 Eosinophils % 0.0 % (0-4.5) 04/22/17 06:00 Basophils % 0.2 % (0-2.0) 04/22/17 06:00 Basophilic Stippling 1+ 04/15/17 06:30 ESR 35 mm/hr (0-30) H 04/19/17 07:35 Haptoglobin 431 mg/dL (34-200) H 04/13/17 07:30 PT with INR 12.10 SEC (9.98-11.88) H 04/22/17 06:00 INR 1.10 (0.82-1.09) 04/22/17 06:00 PTT (Actin FS) 24.2 SECONDS (26.9-34.4) L 04/22/17 06:00 Fibrinogen 249.0 mg/dL (238-498) D 04/22/17 06:00 Puncture Site Left radial 04/12/17 16:50 ABG pH 7.43 (7.35-7.45) 04/12/17 16:50 ABG pCO2 at Pt Temp 37.1 mmHg (35-45) 04/12/17 16:50 ABG pO2 at Pt Temp 50.8 mmHg (70-100) L 04/12/17 16:50 ABG HCO3 24.1 meq/L (22-26) 04/12/17 16:50 ABG O2 Sat (Measured) 85.9 % (90-98.9) L 04/12/17 16:50 ABG O2 Content 10.4 % vol (15-22) L 04/12/17 16:50 ABG Base Excess 0.4 meq/l (-2-2) 04/12/17 16:50 Aaron Test Positive 04/12/17 16:50 Oxygen Flow Rate room air 04/12/17 16:50 PEEP 0.0 cmH2O 04/12/17 16:50 Sodium 144 mmol/L (136-145) 04/21/17 06:00 Potassium 4.7 mmol/L (3.5-5.1) 04/21/17 06:00 Chloride 108 mmol/L (98-107) H 04/21/17 06:00 Carbon Dioxide 25 mmol/L (21-32) 04/21/17 06:00 Anion Gap 11 (8-16) 04/21/17 06:00 BUN 61 mg/dL (7-18) H 04/21/17 06:00 Creatinine 2.1 mg/dL (0.55-1.02) H 04/21/17 06:00 Creat Clearance w eGFR 21.70 (>60) 04/20/17 06:00 POC Glucometer 185 UNITS (()) 04/22/17 06:13 Random Glucose 109 mg/dL (74-106) H D 04/21/17 06:00 Lactic Acid 0.9 mmol/L (0.4-2.0) 04/12/17 18:30 Calcium 8.4 mg/dL (8.5-10.1) L 04/21/17 06:00 Magnesium 2.5 mg/dL (1.8-2.4) H 04/16/17 05:35 Iron 13 ug/dL (27-139) L 04/12/17 14:10 TIBC 163 ug/dL (250-450) L 04/12/17 14:10 Iron Saturation 8 % (15-55) L 04/12/17 14:10 Transferrin 127 mg/dL (200-370) L 04/12/17 14:10 Ferritin Cancelled 04/12/17 14:10 Total Bilirubin 0.4 mg/dL (0.2-1.0) 04/20/17 06:00 AST 8 U/L (15-37) L D 04/20/17 06:00 ALT 20 U/L (12-78) 04/20/17 06:00 Alkaline Phosphatase 60 U/L (45-117) 04/20/17 06:00 LD Total 201 U/L (84-246) 04/13/17 06:15 Creatine Kinase 95 IU/L (26-192) 04/10/17 06:10 Creatine Kinase Index 0.5 % (0.0-5.0) 04/09/17 14:23 CK-MB (CK-2) 1.031 ng/mL (0.5-3.6) 04/09/17 14:23 Troponin I 0.08 ng/ml (0.00-0.05) H 04/10/17 06:10 C-Reactive Protein 10.0 MG/DL (0.00-0.3) H 04/11/17 07:00 Prot Electrophoresis (.) 04/17/17 06:20 Serum Total Protein 5.9 g/dL (6.0-8.5) L 04/17/17 06:20 Total Protein 5.6 g/dl (6.4-8.2) L 04/20/17 06:00 Albumin 2.3 g/dl (3.4-5.0) L 04/20/17 06:00 Globulin 3.3 g/dL (2.2-3.9) 04/17/17 06:20 Albumin/Globulin Ratio 0.8 (0.7-1.7) 04/17/17 06:20 Skdvr-7-Eydovtord 0.4 gm/dL (0.0-0.4) 04/17/17 06:20 Pgdhf-7-Rgkhjstvj 1.0 gm/dL (0.4-1.0) 04/17/17 06:20 Beta Globulins 0.9 gm/dL (0.7-1.3) 04/17/17 06:20 Gamma Globulins 0.9 gm/dL (0.4-1.8) 04/17/17 06:20 Triglycerides 133 mg/dL (35-160) 04/11/17 06:00 Cholesterol 136 mg/dL (50-200) 04/11/17 06:00 Total LDL Cholesterol 79 mg/dL (5-100) 04/11/17 06:00 HDL Cholesterol 31 mg/dL (40-60) L 04/11/17 06:00 Angiotensin Convert Enz 54 U/L (14-82) 04/16/17 15:30 TSH 1.91 uIU/ml (0.358-3.74) D 04/17/17 06:20 Free T4 1.93 ng/dl (0.76-1.46) H D 04/17/17 06:20 Free T3 1.7 pg/ml (2.0-4.4) L 04/11/17 11:03 Urine Color Straw 04/20/17 06:50 Urine Appearance Clear 04/20/17 06:50 Urine pH 5.0 (5.0-8.0) 04/20/17 06:50 Ur Specific [place] 1.015 (1.005-1.025) 04/20/17 06:50 Urine Protein 1+ (NEGATIVE) H 04/20/17 06:50 Urine Glucose (UA) 2+ (NEGATIVE) H 04/20/17 06:50 Urine Ketones Negative (NEGATIVE) 04/20/17 06:50 Urine Blood 3+ (NEGATIVE) H 04/20/17 06:50 Urine Nitrite Negative (NEGATIVE) 04/20/17 06:50 Urine Bilirubin Negative (NEGATIVE) 04/20/17 06:50 Urine Urobilinogen Negative mg/dL (0.2-1.0) 04/20/17 06:50 Urine RBC 37 /hpf (0-3) 04/20/17 06:50 Urine WBC 20 /hpf (3-5) 04/20/17 06:50 Ur Epithelial Cells Moderate /hpf (FEW) 04/16/17 09:00 Hyaline Casts 4 /lpf 04/16/17 09:00 Granular Casts 4 /lpf 04/16/17 09:00 Urine Mucus Rare 04/20/17 06:50 Urine Yeast Rare 04/16/17 09:00 Urine Eosinophils None seen % (.) 04/15/17 10:00 U Random Total Protein 104 mg/dl (5-11.9) H 04/12/17 09:00 Ur Random Sodium 68 MMOL/L 04/12/17 10:30 Ur Random Potassium 37.2 MMOL/L 04/12/17 10:30 Ur Random Chloride 82 MMOL/L 04/12/17 10:30 Ur Random Urea Nitrogn 571 mg/dL 04/12/17 09:00 Urine Creatinine 89.5 mg/dL (20-320) 04/12/17 10:30 Protein/Creatinin Ratio 0.97 MG/DL 04/12/17 09:00 Stool Occult Blood Negative (NEGATIVE) 04/13/17 11:30 Random Vancomycin 11.499 ug/ml 04/17/17 06:20 SHEY M-Kuldip Not observed g/dL (Not Observed) 04/17/17 06:20 KEELEY Screen Positive (.) H 04/11/17 16:30 KEELEY Homogeneous Pattern 1:320 (.) H 04/11/17 16:30 KEELEY Nucleolar Pattern 1:320 (.) H 04/11/17 16:30 KEELEY Speckled Pattern TNP 04/11/17 16:30 KEELEY Centromere Pattern TNP 04/11/17 16:30 c-ANCA <1:20 titer (Neg:<1:20) 04/11/17 16:30 Proteinase 3 (PR3) <3.5 U/mL (0.0-3.5) 04/11/17 16:30 p-ANCA 1:160 titer (Neg:<1:20) H 04/11/17 16:30 Atypical p-ANCA <1:20 titer (Neg:<1:20) 04/11/17 16:30 Myeloperoxidase Ab >100.0 U/mL (0.0-9.0) H 04/11/17 16:30 Double Strand DNA Ab <1 IU/mL (0-9) 04/11/17 16:30 Glomerular Base Memb Ab 8 units (0-20) 04/14/17 07:00 Complement C3 137 mg/dL (82-167) 04/16/17 15:30 Complement C4 24 mg/dL (14-44) 04/16/17 15:30 Tot Complement (CH50) > 65 U/mL (42-60) H 04/14/17 07:00 Hepatitis A Ab Total Negative (Negative) 04/19/17 07:35 Hep Bs Antigen Negative (Negative) 04/19/17 07:35 Hep Bs Ab Concentration Non reactive (.) 04/19/17 07:35 Hep B Core IgM Ab Negative (Negative) 04/19/17 07:35 Hep B Core Ab Interpret Negative (Negative) 04/19/17 07:35 Hepatitis C Antibody 0.1 s/co ratio (0.0-0.9) 04/19/17 07:35 TB Test (QFT) Negative (Negative) 04/17/17 14:20 Blood Type O POSITIVE 04/21/17 10:27 Antibody Screen Negative 04/21/17 10:27 Antibody Identification TNP 04/15/17 09:00 Crossmatch See Detail 04/15/17 09:00 Active Medications Generic Name Dose Route Start Last Admin Trade Name Byron PRN Reason Stop Dose Admin Collagenase 1 applic 04/10/17 10:00 04/22/17 09:51 Santyl - TP 1 applic DAILY MILES Administration Gentamicin Sulfate 1 applic 04/16/17 10:00 04/22/17 09:51 Garamycin 0.1% Ointment - TP 1 applic DAILY MILES Administration Hydralazine HCl 10 mg 04/22/17 10:00 04/22/17 09:51 Apresoline - PO 10 mg BID MILES Administration Insulin Aspart 1 vial 04/17/17 07:36 04/22/17 11:51 Novolog Vial Sliding Scale - SQ Not Given ACHS [facility] Protocol Insulin Detemir 8 units 04/19/17 10:00 04/22/17 06:38 Levemir Vial SQ Not Given BID@0700,2200 MILES Levothyroxine Sodium 100 mcg 04/18/17 07:00 04/22/17 06:38 Synthroid - PO 100 mcg DAILY@0700 MILES Administration Polyethylene Glycol 17 gm 04/10/17 10:00 04/22/17 09:51 Miralax (For Daily Use) - PO Not Given DAILY MILES Prednisone 40 mg 04/17/17 18:30 04/22/17 09:51 Deltasone - PO 40 mg BID MILES Administration Valacyclovir HCl 500 mg 04/15/17 22:00 04/22/17 09:52 Valtrex - PO 500 mg BID MILES Administration ASSESSMENT/PLAN: Ms. Chiang is a 77yo F with PMHx of Polymyalgia rheumatica, HTN, Hypothyroidism , admitted for bilateral lower extremity cellulitis. During the hospitalization , she developed hemoptysis, SOB, and hypoxia (86% on RA). 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 Will discuss w/ Dr. Salmeron. We will continue to follow Osorio Wilson MD - PGY1 Visit type - Emergency Visit Emergency Visit: No - New Patient This patient is new to me today: No - Critical Care Critical Care patient: No - Discharge Referral Referred to [facility] Med P.C.: No
--- NOTE | 2017-04-22 14:08 | PN ---
Teaching Attending Note Name of Resident: Osorio Wilson ATTENDING PHYSICIAN STATEMENT I saw and evaluated the patient. I reviewed the resident's note and discussed the case with the resident. I agree with the resident's findings and plan as documented. SUBJECTIVE: OBJECTIVE: ASSESSMENT AND PLAN:pulmonary alert,feeling better,-sob,-cough.pt s/p renal bx,tolerated procedure well SUBJECTIVE: Problem List - Problems (1) Acute kidney injury Code(s): N17.9 - ACUTE KIDNEY FAILURE, UNSPECIFIED (2) Cellulitis Code(s): L03.90 - CELLULITIS, UNSPECIFIED Qualifiers: Site of cellulitis: extremity Site of cellulitis of extremity: lower extremity Laterality: unspecified laterality Qualified Code(s): L03.119 - Cellulitis of unspecified part of limb (3) Venous stasis of both lower extremities Code(s): I87.8 - OTHER SPECIFIED DISORDERS OF VEINS (4) Hemoptysis Code(s): R04.2 - HEMOPTYSIS (5) Acute hypoxemic respiratory failure Code(s): J96.01 - ACUTE RESPIRATORY FAILURE WITH HYPOXIA (6) Bilateral pulmonary infiltrates on chest x-ray Code(s): R91.8 - OTHER NONSPECIFIC ABNORMAL FINDING OF LUNG FIELD (7) Vasculitis Code(s): I77.6 - ARTERITIS, UNSPECIFIED Assessment/Plan IMP ACUTE HYPOXEMIC RESPIRATORY FAILURE IMPROVED EXTENSIVE BILATERAL INFILTRATES LIKELY VASCULITIS (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)PULMONARY RENAL SYNDROME HEMOPTYSIS SECONDARY TO ABOVE RESOLVED HTN ANEMIA CHRONIC VENOUS STASIS HYPOTHYROIDISM PLAN PREDNISONE O2 F/U CHEST X-RAYS MONITOR H+H check path DR CORBIN Problem List - Problems (1) Acute kidney injury Code(s): N17.9 - ACUTE KIDNEY FAILURE, UNSPECIFIED (2) Cellulitis Code(s): L03.90 - CELLULITIS, UNSPECIFIED Qualifiers: Site of cellulitis: extremity Site of cellulitis of extremity: lower extremity Laterality: unspecified laterality Qualified Code(s): L03.119 - Cellulitis of unspecified part of limb (3) Venous stasis of both lower extremities Code(s): I87.8 - OTHER SPECIFIED DISORDERS OF VEINS (4) Hemoptysis Code(s): R04.2 - HEMOPTYSIS (5) Acute hypoxemic respiratory failure Code(s): J96.01 - ACUTE RESPIRATORY FAILURE WITH HYPOXIA (6) Bilateral pulmonary infiltrates on chest x-ray Code(s): R91.8 - OTHER NONSPECIFIC ABNORMAL FINDING OF LUNG FIELD (7) Vasculitis Code(s): I77.6 - ARTERITIS, UNSPECIFIED Problem List - Problems (1) Acute kidney injury Code(s): N17.9 - ACUTE KIDNEY FAILURE, UNSPECIFIED (2) Cellulitis Code(s): L03.90 - CELLULITIS, UNSPECIFIED Qualifiers: Site of cellulitis: extremity Site of cellulitis of extremity: lower extremity Laterality: unspecified laterality Qualified Code(s): L03.119 - Cellulitis of unspecified part of limb; L03.119 - Cellulitis of unspecified part of limb (3) Venous stasis of both lower extremities Code(s): I87.8 - OTHER SPECIFIED DISORDERS OF VEINS (4) Hemoptysis Code(s): R04.2 - HEMOPTYSIS (5) Acute hypoxemic respiratory failure Code(s): J96.01 - ACUTE RESPIRATORY FAILURE WITH HYPOXIA (6) Bilateral pulmonary infiltrates on chest x-ray Code(s): R91.8 - OTHER NONSPECIFIC ABNORMAL FINDING OF LUNG FIELD (7) Vasculitis Code(s): I77.6 - ARTERITIS, UNSPECIFIED
[2017-04-22] MEDS ORDERED: hydrALAZINE HCL 10 MG TABLET PO ONE (14:23)
--- NOTE | 2017-04-22 14:25 | PN ---
Progress Note, Physician Chief Complaint: stable s/p kidney bx no c/o History of Present Illness: 87-year-old black female sent in by Dr. Silvestre for evaluation of nonhealing chronic lower extremity wounds now suggestive of cellulitis. Patient states was seen earlier this week and then again today for redness and swelling of the thumb, bilateral lower extremity wounds and swelling, now with a draining wound to the side of left ankle. Patient denies fever, chills but does state pain and redness to the area. Patient states had an ultrasound a few days ago which was negative for DVT. Patient does have history of MRSA. Patient also states history of chronic venous stasis. - Current Medication List Current Medications: Active Medications Collagenase (Santyl -) 1 applic TP DAILY [facility] Last Admin: 04/22/17 09:51 Dose: 1 applic Gentamicin Sulfate (Garamycin 0.1% Ointment -) 1 applic TP DAILY [facility] Last Admin: 04/22/17 09:51 Dose: 1 applic Hydralazine HCl (Apresoline -) 10 mg PO BID [facility] Last Admin: 04/22/17 09:51 Dose: 10 mg Hydralazine HCl (Apresoline -) 10 mg PO ONCE ONE Stop: 04/22/17 14:24 Insulin Aspart (Novolog Vial Sliding Scale -) 1 vial SQ [facility] PRN Reason: Protocol Last Admin: 04/22/17 11:51 Dose: Not Given Insulin Detemir (Levemir Vial) 8 units SQ BID@0700,2200 [facility] Last Admin: 04/22/17 06:38 Dose: Not Given Levothyroxine Sodium (Synthroid -) 100 mcg PO DAILY@0700 [facility] Last Admin: 04/22/17 06:38 Dose: 100 mcg Polyethylene Glycol (Miralax (For Daily Use) -) 17 gm PO DAILY [facility] Last Admin: 04/22/17 09:51 Dose: Not Given Prednisone (Deltasone -) 40 mg PO BID [facility] Last Admin: 04/22/17 09:51 Dose: 40 mg Valacyclovir HCl (Valtrex -) 500 mg PO BID [facility] Last Admin: 04/22/17 09:52 Dose: 500 mg - Objective Vital Signs: Vital Signs Temperature 98.3 F 04/22/17 14:00 Pulse Rate 48 L 04/22/17 14:00 Respiratory Rate 18 04/22/17 14:00 Blood Pressure 174/71 04/22/17 14:00 O2 Sat by Pulse Oximetry (%) 100 04/22/17 12:37 Eyes: Yes: WNL, Conjunctiva Clear, EOM Intact HENT: Yes: WNL, Atraumatic, Normocephalic Neck: Yes: WNL, Supple, Trachea Midline Cardiovascular: Yes: WNL, Regular Rate and Rhythm Respiratory: Yes: WNL, Regular, CTA Bilaterally Gastrointestinal: Yes: WNL, Normal Bowel Sounds Genitourinary: Yes: WNL Musculoskeletal: Yes: WNL Extremities: Yes: WNL Edema: No Integumentary: Yes: WNL Neurological: Yes: WNL, Alert, Oriented ...Motor Strength: WNL Psychiatric: Yes: WNL Labs: CBC, BMP 04/22/17 06:00 04/21/17 06:00 INR, PTT INR 1.10 (0.82-1.09) 04/22/17 06:00 Fibrinogen 249.0 mg/dL (238-498) D 04/22/17 06:00 Assessment/Plan 77 year old female with a past medical history of of non healing chronic RLE venous ulcer, borderline hypertension, polymyalgia, hypothyroidism, sent to ED by Dr. 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 Plan: 1. 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 Elevated troponin: borderline - Possible demand, do not suspect primary [place] - ASA on hold - Stress as outpt 3. Bradycardia - Synthroid adjusted - Hold senna, zofran, protonix 4. Bilateral Lower Ext. Cellulitis - Stable off antibiotics - On valtrex, viral cx pending 5. Acute blood loss anemia - Transfused 2UPRBC 04/15 - Transfuse blood for hgb >9 6. Hemoptysis - Resolved - See above 7. MYRTLE on CKD - Cr improved - Biopsy saturday 8. Hypothyroidism - Daily synthroid 9. Hyperglycemia - Due to steroids
--- NOTE | 2017-04-22 15:43 | PN ---
Teaching Attending Note Name of Resident: Leighann Domínguez (Nephrology) ATTENDING PHYSICIAN STATEMENT I saw and evaluated the patient. I reviewed the resident's note and discussed the case with the resident. I agree with the resident's findings and plan as documented. Renal Pt seen and examined at bedside. She had the kidney biopsy done today. She denies hematuria. Current Medications Generic Name Dose Route Start Last Admin Trade Name Byron PRN Reason Stop Dose Admin Collagenase 1 applic 04/10/17 10:00 04/22/17 09:51 Santyl - TP 1 applic DAILY [facility] Administration Gentamicin Sulfate 1 applic 04/16/17 10:00 04/22/17 09:51 Garamycin 0.1% Ointment - TP 1 applic DAILY [facility] Administration Hydralazine HCl 10 mg 04/22/17 10:00 04/22/17 09:51 Apresoline - PO 10 mg BID [facility] Administration Insulin Aspart 1 vial 04/17/17 07:36 04/22/17 11:51 Novolog Vial Sliding Scale - SQ Not Given ACHS [facility] Protocol Insulin Detemir 8 units 04/19/17 10:00 04/22/17 06:38 Levemir Vial SQ Not Given BID@0700,2200 [facility] Levothyroxine Sodium 100 mcg 04/18/17 07:00 04/22/17 06:38 Synthroid - PO 100 mcg DAILY@0700 [facility] Administration Polyethylene Glycol 17 gm 04/10/17 10:00 04/22/17 09:51 Miralax (For Daily Use) - PO Not Given DAILY [facility] Prednisone 40 mg 04/17/17 18:30 04/22/17 09:51 Deltasone - PO 40 mg BID [facility] Administration Valacyclovir HCl 500 mg 04/15/17 22:00 04/22/17 09:52 Valtrex - PO 500 mg BID [facility] Administration Last Vital Signs Temp Pulse Resp BP Pulse Ox 98.3 F 48 L 18 174/71 100 04/22/17 14:00 04/22/17 14:00 04/22/17 14:00 04/22/17 14:00 04/22/17 12:37 Laboratory Tests 04/21/17 04/22/17 06:00 06:00 Hgb 10.2 L BUN 61 H Creatinine 2.1 H cardio s1s2 reg pulm clear GI soft ext trace edema neuro awake Impression 1. 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 lower extremity ulcer 3. hypothyroid 4. HTN 5. polymyalgia 6. anemia Plan - pt had kidney biopsy today - hopefully we can get a prelim report tomorrow - cont current meds - repeat hg - discussed with hospitalist Dr Hamilton Problem List - Problems (1) Acute kidney injury Code(s): N17.9 - ACUTE KIDNEY FAILURE, UNSPECIFIED (2) Cellulitis Code(s): L03.90 - CELLULITIS, UNSPECIFIED Qualifiers: Site of cellulitis: extremity Site of cellulitis of extremity: lower extremity Laterality: unspecified laterality Qualified Code(s): L03.119 - Cellulitis of unspecified part of limb; L03.119 - Cellulitis of unspecified part of limb (3) Hypothyroid Code(s): E03.9 - HYPOTHYROIDISM, UNSPECIFIED (4) Venous stasis of both lower extremities Code(s): I87.8 - OTHER SPECIFIED DISORDERS OF VEINS
[2017-04-22 16:22] LABS: GAMMA GLOBULIN % 10.5 % (.); M-SPIKE, % Not Observed % (Not Observed)
[2017-04-22 17:13] LABS: MCH 29.1 pg (25.7-33.7); MCHC 33.8 g/dl (32.0-36.0); MEAN CELL VOLUME 86.1 fl (80-96); MEAN PLT VOLUME 9.4 fl (7.5-11.1); PLATELET COUNT 298 K/MM3 (134-434); RDW 16.5 % (11.6-15.6); WHITE BLOOD COUNT 9.6 K/mm3 (4.0-10.0)
[2017-04-22 17:29] LABS: ANION GAP 10 (8-16); CO2 22 mmol/L (21-32); CREATININE 2.2 mg/dL (0.55-1.02); GLUCOSE,RANDOM 252 mg/dL (74-106)
[2017-04-22 20:39] LABS: PLATELET ESTIMATE ADEQUATE (NORMAL); TOTAL CELLS COUNTED 100
[2017-04-22 20:40] LABS: HYPOCHROMIA 1+
[2017-04-22] MEDS: hydrALAZINE HCL 10 MG TABLET PO SCH (21:41)
[2017-04-23] MEDS: INSULIN DETEMIR 100 UNITS/ML MDV SQ SCH ×2 (06:35→22:08)
[2017-04-23] MEDS: LEVOTHYROXINE NA 100 MCG TABLET (FP) PO SCH (06:36)
[2017-04-23] MEDS: INSULIN SLIDING SCALE (NOVOLOG) 1 VIAL SQ SCH ×4 (06:36→22:11)
[2017-04-23] MEDS: hydrALAZINE HCL 10 MG TABLET PO SCH ×3 (06:36→22:08)
[2017-04-23 07:21] LABS: MCH 28.3 pg (25.7-33.7); MCHC 32.8 g/dl (32.0-36.0); MEAN CELL VOLUME 86.2 fl (80-96); MEAN PLT VOLUME 9.1 fl (7.5-11.1); PLATELET COUNT 256 K/MM3 (134-434); RDW 16.2 % (11.6-15.6); WHITE BLOOD COUNT 11.5 K/mm3 (4.0-10.0)
[2017-04-23 07:30] LABS: ANION GAP 10 (8-16); CALCIUM 7.8 mg/dL (8.5-10.1); CO2 22 mmol/L (21-32); CREATININE 2.2 mg/dL (0.55-1.02); GLUCOSE,RANDOM 181 mg/dL (74-106)
--- NOTE | 2017-04-23 07:48 | PN ---
Physical Exam: SUBJECTIVE: Patient seen and examined oob to chair and at bedside. OBJECTIVE: Vital Signs Period Temp Pulse Resp BP Sys/Horn Pulse Ox Last 24 Hr 97.7 F-98.5 F 46-93 14-26 137-188/69-91 96-100 GENERAL: The patient is awake, alert, and fully oriented, in no acute distress. HEAD: Normal with no signs of trauma. LUNGS: Breath sounds equal, clear to auscultation bilaterally, no wheezes, no crackles, no accessory muscle use. HEART: Regular rate and rhythm, S1, S2 without murmur, rub or gallop. ABDOMEN: Soft, nontender, nondistended, normoactive bowel sounds, no guarding, no rebound UPPER EXTREMITIES: 2+ pulses, warm, well-perfused, no edema. LOWER EXTREMITIES: large non-healing ulcer medial aspect right leg, smaller ulcers left leg; 1-2+ bilateral edema NEUROLOGICAL: Cranial nerves II through XII grossly intact. Normal speech, steady gait with a walker observed PSYCH: Normal mood, normal affect. Laboratory Results - last 24 hr 04/17/17 04/22/17 04/22/17 18:00 06:00 06:00 WBC RBC Hgb Hct MCV MCH MCHC RDW Plt Count MPV Total Counted Neutrophils % Neutrophils % (Manual) Band Neuts % (Manual) Lymphocytes % Lymphocytes % (Manual) Hypochromia Platelet Estimate PT with INR 12.10 H INR 1.10 PTT (Actin FS) 24.2 L Fibrinogen 249.0 D Sodium Potassium Chloride Carbon Dioxide Anion Gap BUN Creatinine POC Glucometer Random Glucose Calcium Hebxi-7-Vmvzciwmv (%) 4.2 Vqfhb-5-Kqcbeuczp (%) 12.6 Beta Globulins (%) 12.8 Gamma Globulins (%) 10.5 M-Kuldip % Not observed Urine Total Protein 56.6 Urine PEP Interpret 60.0 Ref Test Comments 04/22/17 04/22/17 04/22/17 16:40 16:40 16:43 WBC 9.6 RBC 3.52 L Hgb 10.2 L Hct 30.3 L MCV 86.1 MCH 29.1 MCHC 33.8 RDW 16.5 H Plt Count 298 MPV 9.4 Total Counted 100 Neutrophils % No Result Required. Neutrophils % (Manual) 93 H* Band Neuts % (Manual) 1 Lymphocytes % No Result Required. Lymphocytes % (Manual) 6 L Hypochromia 1+ Platelet Estimate Adequate PT with INR INR PTT (Actin FS) Fibrinogen Sodium 140 Potassium 4.6 Chloride 108 H Carbon Dioxide 22 Anion Gap 10 BUN 58 H Creatinine 2.2 H POC Glucometer 243 Random Glucose 252 H D Calcium 8.0 L Meelh-9-Tnloyjbwk (%) Xtoyl-0-Dpvjcwpbs (%) Beta Globulins (%) Gamma Globulins (%) M-Kuldip % Urine Total Protein Urine PEP Interpret Ref Test Comments 04/22/17 04/23/17 04/23/17 21:34 05:30 06:10 WBC RBC Hgb Hct MCV MCH MCHC RDW Plt Count MPV Total Counted Neutrophils % Neutrophils % (Manual) Band Neuts % (Manual) Lymphocytes % Lymphocytes % (Manual) Hypochromia Platelet Estimate PT with INR INR PTT (Actin FS) Fibrinogen Sodium 141 Potassium 4.6 Chloride 109 H Carbon Dioxide 22 Anion Gap 10 BUN 62 H Creatinine 2.2 H POC Glucometer 237 179 Random Glucose 181 H D Calcium 7.8 L Ixzfp-7-Mbjrhympm (%) Iamau-0-Sxjzsgwzq (%) Beta Globulins (%) Gamma Globulins (%) M-Kuldip % Urine Total Protein Urine PEP Interpret Ref Test Comments Active Medications Generic Name Dose Route Start Last Admin Trade Name Byron PRN Reason Stop Dose Admin Collagenase 1 applic 04/10/17 10:00 04/22/17 09:51 Santyl - TP 1 applic DAILY [facility] Administration Gentamicin Sulfate 1 applic 04/16/17 10:00 04/22/17 09:51 Garamycin 0.1% Ointment - TP 1 applic DAILY [facility] Administration Hydralazine HCl 10 mg 04/22/17 22:00 04/23/17 06:36 Apresoline - PO 10 mg TID [facility] Administration Insulin Aspart 1 vial 04/17/17 07:36 04/23/17 06:36 Novolog Vial Sliding Scale - SQ 4 units ACHS [facility] Administration Protocol Insulin Detemir 8 units 04/19/17 10:00 04/23/17 06:35 Levemir Vial SQ 8 units BID@0700,2200 [facility] Administration Levothyroxine Sodium 100 mcg 04/18/17 07:00 04/23/17 06:36 Synthroid - PO 100 mcg DAILY@0700 [facility] Administration Multivitamins/Minerals/Vitamin C 1 tab 04/23/17 10:00 Tab-A-Vit - PO DAILY [facility] Polyethylene Glycol 17 gm 04/10/17 10:00 04/22/17 09:51 Miralax (For Daily Use) - PO Not Given DAILY [facility] Prednisone 40 mg 04/17/17 18:30 04/22/17 21:40 Deltasone - PO 40 mg BID [facility] Administration Valacyclovir HCl 500 mg 04/15/17 22:00 04/22/17 21:41 Valtrex - PO 500 mg BID [facility] Administration ASSESSMENT/PLAN: 87 year-old female with a PMH significant for HTN, chronic venous stasis lower extremity ulcers, polymyaglia rheumatica, and hypothyroidism, admitted on for bilateral lower extremity cellulitis and MYRTLE. Hospital course complicated by new onset of hemoptysis with multfocal consolidative opacities, possible glomerulonephritis (hematura, proteineuria with hyaline and granular casts) and progressive elevation of creatinine. 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 Renal biopsy performed 04/22. 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 --renal biopsy results pending; sent to [place] for analysis, may have preliminary within next 24 hours --continue prednisone PO 40mg BID B/l lower extremity cellulitis with chronic lower extremity ulcers - foot ulcers may be secondary to vasculitis as well - stable off antibiotics Elevated troponin --troponin 0.11-->0.08, likely demand, do not suspect primary [place] --Echo: normal LV; moderate BLAE --continue to hold ASA --stress as outpatient Chronic diastolic heart failure --overall euvolemic MYRTLE on CKD --04/12 renal/bladder: evidence of chronic medical disease --baseline Cr 0.9, Cr 2.2 today --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 Full code. Visit type - Emergency Visit Emergency Visit: Yes ED Registration Date: 04/09/17 Care time: The patient presented to the Emergency Department on the above date and was hospitalized for further evaluation of their emergent condition. - New Patient This patient is new to me today: Yes Date on this admission: 04/23/17 - Critical Care Critical Care patient: No
[2017-04-23] MEDS ORDERED: INSULIN (NOVOLOG) ASPART 100 UNITS/ML 10ML VIAL ONE ×2 (08:07→13:31)
[2017-04-23] MEDS ORDERED: INSULIN DETEMIR 100 UNITS/ML MDV SQ ONE (08:07)
[2017-04-23] MEDS: POLYETHYLENE GLYCOL 3350 119 GM BTL PO SCH (10:18)
[2017-04-23] MEDS: valACYclovir HCL 500 MG TABLET (FP) PO SCH ×2 (10:18→22:08)
[2017-04-23] MEDS: MULTIVITAMINS (DAILY MVI) TABLET (FP) PO SCH (10:18)
[2017-04-23] MEDS: predniSONE 20 MG TABLET (UD) PO SCH ×2 (10:18→22:08)
--- NOTE | 2017-04-23 13:12 | PN ---
Progress Note (short form) - Note Progress Note: PULMONARY No further hemoptysis. s/p renal biopsy yesterday. Last Vital Signs Temp Pulse Resp BP Pulse Ox 98.3 F 65 20 164/71 100 04/23/17 10:00 04/23/17 10:00 04/23/17 10:00 04/23/17 10:00 04/22/17 21:00 Gen: NAD at rest Heart: RRR Lung: scattered rales Abd: soft, nontender Ext: + edema CBC, BMP 04/23/17 05:30 04/23/17 05:30 Active Medications Collagenase (Santyl -) 1 applic TP DAILY [facility] Last Admin: 04/22/17 09:51 Dose: 1 applic Gentamicin Sulfate (Garamycin 0.1% Ointment -) 1 applic TP DAILY [facility] Last Admin: 04/22/17 09:51 Dose: 1 applic Heparin Sodium (Porcine) (Heparin -) 5,000 unit SQ TID [facility] Hydralazine HCl (Apresoline -) 10 mg PO TID [facility] Last Admin: 04/23/17 06:36 Dose: 10 mg Insulin Aspart (Novolog Vial Sliding Scale -) 1 vial SQ [facility] PRN Reason: Protocol Last Admin: 04/23/17 06:36 Dose: 4 units Insulin Detemir (Levemir Vial) 8 units SQ BID@0700,2200 [facility] Last Admin: 04/23/17 06:35 Dose: 8 units Levothyroxine Sodium (Synthroid -) 100 mcg PO DAILY@0700 [facility] Last Admin: 04/23/17 06:36 Dose: 100 mcg Multivitamins/Minerals/Vitamin C (Tab-A-Vit -) 1 tab PO DAILY [facility] Last Admin: 04/23/17 10:18 Dose: 1 tab Polyethylene Glycol (Miralax (For Daily Use) -) 17 gm PO DAILY [facility] Last Admin: 04/23/17 10:18 Dose: Not Given Prednisone (Deltasone -) 40 mg PO BID [facility] Last Admin: 04/23/17 10:18 Dose: 40 mg Valacyclovir HCl (Valtrex -) 500 mg PO BID [facility] Last Admin: 04/23/17 10:18 Dose: 500 mg A/P Likely Pulmonary-Renal Syndrome r/o Pneumonia vs Interstitial Lung Disease vs Vasculitis Hemoptysis Acute Kidney Injury HTN Anemia Hypothyroidism - f/u renal biopsy - continue prednisone - inhaled bronchodilators - O2 to keep SpO2 >90% - DVT prophylaxis
[2017-04-23] MEDS: COLLAGENASE CLOSTRIDIUM HIST. 30 GRAMS TUBE TP SCH (13:21)
[2017-04-23] MEDS: GENTAMICIN SO4 0.1% TOPICAL OINTMENT 15 GM/TUBE TUBE TP SCH (13:21)
[2017-04-23] MEDS: HEPARIN NA (PORCINE) 5,000 UNITS/ML 1ML VIAL SQ SCH ×2 (13:35→22:09)
--- NOTE | 2017-04-23 15:11 | PN ---
Progress Note, Physician History of Present Illness: Pt seen and examined at bedside. She is awake and alert. She denies shortness of breath. She denies hematuria. - Current Medication List Current Medications: Active Medications Collagenase (Santyl -) 1 applic TP DAILY [facility] Last Admin: 04/23/17 13:21 Dose: 1 applic Gentamicin Sulfate (Garamycin 0.1% Ointment -) 1 applic TP DAILY [facility] Last Admin: 04/23/17 13:21 Dose: 1 applic Heparin Sodium (Porcine) (Heparin -) 5,000 unit SQ TID [facility] Last Admin: 04/23/17 13:35 Dose: 5,000 unit Hydralazine HCl (Apresoline -) 10 mg PO TID [facility] Last Admin: 04/23/17 13:35 Dose: 10 mg Insulin Aspart (Novolog Vial Sliding Scale -) 1 vial SQ ACHS [facility] PRN Reason: Protocol Last Admin: 04/23/17 13:34 Dose: 8 units Insulin Detemir (Levemir Vial) 8 units SQ BID@0700,2200 [facility] Last Admin: 04/23/17 06:35 Dose: 8 units Levothyroxine Sodium (Synthroid -) 100 mcg PO DAILY@0700 [facility] Last Admin: 04/23/17 06:36 Dose: 100 mcg Multivitamins/Minerals/Vitamin C (Tab-A-Vit -) 1 tab PO DAILY [facility] Last Admin: 04/23/17 10:18 Dose: 1 tab Polyethylene Glycol (Miralax (For Daily Use) -) 17 gm PO DAILY [facility] Last Admin: 04/23/17 10:18 Dose: Not Given Prednisone (Deltasone -) 40 mg PO BID [facility] Last Admin: 04/23/17 10:18 Dose: 40 mg Valacyclovir HCl (Valtrex -) 500 mg PO BID [facility] Last Admin: 04/23/17 10:18 Dose: 500 mg - Objective Vital Signs: Vital Signs Temperature 97.8 F 04/23/17 14:04 Pulse Rate 62 04/23/17 14:04 Respiratory Rate 20 04/23/17 14:04 Blood Pressure 155/69 04/23/17 14:04 O2 Sat by Pulse Oximetry (%) 100 04/22/17 21:00 Constitutional: Yes: Calm Eyes: Yes: Conjunctiva Clear HENT: Yes: Atraumatic Neck: Yes: Supple Cardiovascular: Yes: S1, S2 Respiratory: Yes: CTA Bilaterally Gastrointestinal: Yes: Soft Genitourinary: Yes: WNL Musculoskeletal: Yes: WNL Neurological: Yes: Oriented Psychiatric: Yes: Oriented Labs: CBC, BMP 04/23/17 05:30 04/23/17 05:30 INR, PTT INR 1.10 (0.82-1.09) 04/22/17 06:00 Fibrinogen 249.0 mg/dL (238-498) D 04/22/17 06:00 Problem List - Problems (1) Acute kidney injury Code(s): N17.9 - ACUTE KIDNEY FAILURE, UNSPECIFIED (2) Cellulitis Code(s): L03.90 - CELLULITIS, UNSPECIFIED Qualifiers: Site of cellulitis: extremity Site of cellulitis of extremity: lower extremity Laterality: unspecified laterality Qualified Code(s): L03.119 - Cellulitis of unspecified part of limb; L03.119 - Cellulitis of unspecified part of limb (3) Hypothyroid Code(s): E03.9 - HYPOTHYROIDISM, UNSPECIFIED (4) Venous stasis of both lower extremities Code(s): I87.8 - OTHER SPECIFIED DISORDERS OF VEINS Assessment/Plan Current Medications Generic Name Dose Route Start Last Admin Trade Name Freq PRN Reason Stop Dose Admin Collagenase 1 applic 04/10/17 10:00 04/23/17 13:21 Santyl - TP 1 applic DAILY [facility] Administration Gentamicin Sulfate 1 applic 04/16/17 10:00 04/23/17 13:21 Garamycin 0.1% Ointment - TP 1 applic DAILY [facility] Administration Heparin Sodium (Porcine) 5,000 unit 04/23/17 14:00 04/23/17 13:35 Heparin - SQ 5,000 unit TID [facility] Administration Hydralazine HCl 10 mg 04/22/17 22:00 04/23/17 13:35 Apresoline - PO 10 mg TID [facility] Administration Insulin Aspart 1 vial 04/17/17 07:36 04/23/17 13:34 Novolog Vial Sliding Scale - SQ 8 units ACHS [facility] Administration Protocol Insulin Detemir 8 units 04/19/17 10:00 04/23/17 06:35 Levemir Vial SQ 8 units BID@0700,2200 [facility] Administration Levothyroxine Sodium 100 mcg 04/18/17 07:00 04/23/17 06:36 Synthroid - PO 100 mcg DAILY@0700 [facility] Administration Multivitamins/Minerals/Vitamin C 1 tab 04/23/17 10:00 04/23/17 10:18 Tab-A-Vit - PO 1 tab DAILY [facility] Administration Polyethylene Glycol 17 gm 04/10/17 10:00 04/23/17 10:18 Miralax (For Daily Use) - PO Not Given DAILY [facility] Prednisone 40 mg 04/17/17 18:30 04/23/17 10:18 Deltasone - PO 40 mg BID [facility] Administration Valacyclovir HCl 500 mg 04/15/17 22:00 04/23/17 10:18 Valtrex - PO 500 mg BID [facility] Administration Impression 1. 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 lower extremity ulcer 3. hypothyroid 4. HTN 5. polymyalgia 6. anemia Plan - follow up renal biopsy - repeat labs in am - cont current meds - monitor blood pressure - increase hydralazine dose - aspirin is stopped since Saturday of this week Dr Hamilton
--- NOTE | 2017-04-23 16:38 | PN ---
Progress Note (short form) - Note Progress Note: Patient seen and examined She feels well. 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 she is O/E: General: NAD HEENT: No scleral icterus, no LAD Lungs: CTA b/l ABdomen: soft LE: +bilateral ulcers in dressing.( as per RN, much improved than before) Last Vital Signs Temp Pulse Resp BP Pulse Ox 97.8 F 62 20 155/69 100 04/23/17 14:04 04/23/17 14:04 04/23/17 14:04 04/23/17 14:04 04/22/17 21:00 04/23/17 05:30 04/23/17 05:30 Current Medications Generic Name Dose Route Start Last Admin Trade Name Freq PRN Reason Stop Dose Admin Collagenase 1 applic 04/10/17 10:00 04/23/17 13:21 Santyl - TP 1 applic DAILY [facility] Administration Gentamicin Sulfate 1 applic 04/16/17 10:00 04/23/17 13:21 Garamycin 0.1% Ointment - TP 1 applic DAILY [facility] Administration Heparin Sodium (Porcine) 5,000 unit 04/23/17 14:00 04/23/17 13:35 Heparin - SQ 5,000 unit TID [facility] Administration Hydralazine HCl 25 mg 04/23/17 22:00 Apresoline - PO BID [facility] Insulin Aspart 1 vial 04/17/17 07:36 04/23/17 13:34 Novolog Vial Sliding Scale - SQ 8 units ACHS [facility] Administration Protocol Insulin Detemir 8 units 04/19/17 10:00 04/23/17 06:35 Levemir Vial SQ 8 units BID@0700,2200 [facility] Administration Levothyroxine Sodium 100 mcg 04/18/17 07:00 04/23/17 06:36 Synthroid - PO 100 mcg DAILY@0700 [facility] Administration Multivitamins/Minerals/Vitamin C 1 tab 04/23/17 10:00 04/23/17 10:18 Tab-A-Vit - PO 1 tab DAILY [facility] Administration Polyethylene Glycol 17 gm 04/10/17 10:00 04/23/17 10:18 Miralax (For Daily Use) - PO Not Given DAILY [facility] Prednisone 40 mg 04/17/17 18:30 04/23/17 10:18 Deltasone - PO 40 mg BID [facility] Administration Valacyclovir HCl 500 mg 04/15/17 22:00 04/23/17 10:18 Valtrex - PO 500 mg BID [facility] Administration Assessment/Plan: 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 -tranfuse prn, monitor crit -on steroids now, improving -s/p kidney biopsy on saturday -further treatment of underlying auto-immune etiology as per Rheum -no transfusion needed
--- NOTE | 2017-04-23 16:56 | PN ---
Progress Note, Physician Chief Complaint: Pt A&Ox3; OOB in chair; smiling, says she feels much better; was able to walk the entire hallway for the first time without feeling dyspneic. History of Present Illness: 87-year-old black female sent in by Dr. Silvestre for evaluation of nonhealing chronic lower extremity wounds now suggestive of cellulitis. Patient states was seen earlier this week and then again today for redness and swelling of the thumb, bilateral lower extremity wounds and swelling, now with a draining wound to the side of left ankle. Patient denies fever, chills but does state pain and redness to the area. Patient states had an ultrasound a few days ago which was negative for DVT. Patient does have history of MRSA. Patient also states history of chronic venous stasis. Pt has also been increasingly short of breath over the past 2 months; she now becomes winded with minimal exertion. Timing/Duration: getting worse Severity: moderate Associated Symptoms: reports: denies symptoms - Current Medication List Current Medications: Active Medications Collagenase (Santyl -) 1 applic TP DAILY [facility] Last Admin: 04/23/17 13:21 Dose: 1 applic Gentamicin Sulfate (Garamycin 0.1% Ointment -) 1 applic TP DAILY [facility] Last Admin: 04/23/17 13:21 Dose: 1 applic Heparin Sodium (Porcine) (Heparin -) 5,000 unit SQ TID [facility] Last Admin: 04/23/17 13:35 Dose: 5,000 unit Hydralazine HCl (Apresoline -) 25 mg PO BID [facility] Insulin Aspart (Novolog Vial Sliding Scale -) 1 vial SQ ACHS [facility] PRN Reason: Protocol Last Admin: 04/23/17 13:34 Dose: 8 units Insulin Detemir (Levemir Vial) 8 units SQ BID@0700,2200 [facility] Last Admin: 04/23/17 06:35 Dose: 8 units Levothyroxine Sodium (Synthroid -) 100 mcg PO DAILY@0700 [facility] Last Admin: 04/23/17 06:36 Dose: 100 mcg Multivitamins/Minerals/Vitamin C (Tab-A-Vit -) 1 tab PO DAILY [facility] Last Admin: 04/23/17 10:18 Dose: 1 tab Polyethylene Glycol (Miralax (For Daily Use) -) 17 gm PO DAILY [facility] Last Admin: 04/23/17 10:18 Dose: Not Given Prednisone (Deltasone -) 40 mg PO BID [facility] Last Admin: 04/23/17 10:18 Dose: 40 mg Valacyclovir HCl (Valtrex -) 500 mg PO BID [facility] Last Admin: 04/23/17 10:18 Dose: 500 mg - Objective Vital Signs: Vital Signs Temperature 97.8 F 04/23/17 14:04 Pulse Rate 62 04/23/17 14:04 Respiratory Rate 20 04/23/17 14:04 Blood Pressure 155/69 04/23/17 14:04 O2 Sat by Pulse Oximetry (%) 100 04/22/17 21:00 Constitutional: Yes: Calm Eyes: Yes: WNL HENT: Yes: WNL Neck: Yes: WNL Cardiovascular: Yes: Regular Rate and Rhythm Respiratory: Yes: Diminished Gastrointestinal: Yes: Soft ...Rectal Exam: Yes: Deferred Genitourinary: Yes: Anuria Extremities: Yes: Other (dry, wrinkled LE skin without edema) Edema: No Peripheral Pulses WNL: Yes Integumentary: Yes: Other Wound/Incision: Yes: Dressing Dry and Intact Neurological: Yes: WNL Psychiatric: Yes: WNL Labs: CBC, BMP 04/23/17 05:30 04/23/17 05:30 INR, PTT INR 1.10 (0.82-1.09) 04/22/17 06:00 Fibrinogen 249.0 mg/dL (238-498) D 04/22/17 06:00 Problem List - Problems (1) Acute kidney injury Assessment/Plan: increased CR, hematuria and proteinuria. Hydration. Await renal biopsy results. Code(s): N17.9 - ACUTE KIDNEY FAILURE, UNSPECIFIED (2) Elevated troponin Assessment/Plan: 0.11-->0.08; normal CK. No chest pain; no acute EKG changes. ECHO: normal LVEF; moderate bilateral atrial enlargement. Sepsis (PNA), CHF, muscle breakdown may contribute to rise in TNI. Multiple cardiac risks (age; diasatoic CHF; HTN; ?lipids; sedentary). Denies prior cardiac workup. Stress MIBI when stable, if not done recently. Total cholesterol 136 mg/dL; LDL cholesterol 79 mg/dL. Code(s): R74.8 - ABNORMAL LEVELS OF OTHER SERUM ENZYMES (3) Hypothyroid Assessment/Plan: TSH 19.1; free T4 now mildly elevated. Code(s): E03.9 - HYPOTHYROIDISM, UNSPECIFIED (4) Wound infection Assessment/Plan: on Valtrex. Code(s): T14.8 - OTHER INJURY OF UNSPECIFIED BODY REGION * DO NOT USE * L08.9 - LOCAL INFECTION OF THE SKIN AND SUBCUTANEOUS TISSUE, UNSP (5) Sinus bradycardia Assessment/Plan: Asymptomatic sinus bradycardia (HR varies from 40s-60s bpm at rest; 30s while asleep). Denies dizziness; she is chronically weak. thyroid studies: free T4 mildly elevated. Pantoprazole, Colace, and Zosyn may all cause slow heart rate; they have been stopped. F/u on telemetry. Inflammatory disease (in this case, vasculitis) may be the etiology of bradycardia. ECHO: normal LVEF; moderate biatrial enlargement; mild MR and TR; mild pulmonary HTN. Code(s): R00.1 - BRADYCARDIA, UNSPECIFIED (6) Hypertension Assessment/Plan: If BP remains elevated, use antihypertensive medications that are not AV conduction blockers. (Now on hydralazine). Code(s): I10 - ESSENTIAL (PRIMARY) HYPERTENSION (7) Vasculitis Assessment/Plan: +P-Anca; possible microscopic polyangiitis. On Prednisone. Renal biopsy results are pending. Code(s): I77.6 - ARTERITIS, UNSPECIFIED
--- NOTE | 2017-04-23 19:23 | PN ---
Progress Note (short form) - Note Progress Note: Feels good S/P renal biopsy No complaints Blood sugar 200s now Vital Signs Period Temp Pulse Resp BP Sys/Horn Pulse Ox Last 24 Hr 97.7 F-98.3 F 49-93 16-20 141-164/69-73 96-100 PE: AO3 NecK: Supple, No JVD HEENT: PERRL, EOMI Lungs: CTA CVS: S1S2 Abd: Benign Ext:trace edema, Dressing both legs Neuro: No focal deficit CMP Sodium 141 mmol/L (136-145) 04/23/17 05:30 Potassium 4.6 mmol/L (3.5-5.1) 04/23/17 05:30 Chloride 109 mmol/L (98-107) H 04/23/17 05:30 Carbon Dioxide 22 mmol/L (21-32) 04/23/17 05:30 Anion Gap 10 (8-16) 04/23/17 05:30 BUN 62 mg/dL (7-18) H 04/23/17 05:30 Creatinine 2.2 mg/dL (0.55-1.02) H 04/23/17 05:30 Creat Clearance w eGFR 21.70 (>60) 04/20/17 06:00 POC Glucometer 237 UNITS (()) 04/23/17 16:57 Random Glucose 181 mg/dL (74-106) H D 04/23/17 05:30 Hemoglobin A1c % 6.8 % (4.8-6.0) H 04/23/17 05:30 Lactic Acid 0.9 mmol/L (0.4-2.0) 04/12/17 18:30 Calcium 7.8 mg/dL (8.5-10.1) L 04/23/17 05:30 Magnesium 2.5 mg/dL (1.8-2.4) H 04/16/17 05:35 Iron 13 ug/dL (27-139) L 04/12/17 14:10 TIBC 163 ug/dL (250-450) L 04/12/17 14:10 Iron Saturation 8 % (15-55) L 04/12/17 14:10 Transferrin 127 mg/dL (200-370) L 04/12/17 14:10 Ferritin Cancelled 04/12/17 14:10 Total Bilirubin 0.4 mg/dL (0.2-1.0) 04/20/17 06:00 AST 8 U/L (15-37) L D 04/20/17 06:00 ALT 20 U/L (12-78) 04/20/17 06:00 Alkaline Phosphatase 60 U/L (45-117) 04/20/17 06:00 LD Total 201 U/L (84-246) 04/13/17 06:15 Creatine Kinase 95 IU/L (26-192) 04/10/17 06:10 Creatine Kinase Index 0.5 % (0.0-5.0) 04/09/17 14:23 CK-MB (CK-2) 1.031 ng/mL (0.5-3.6) 04/09/17 14:23 Troponin I 0.08 ng/ml (0.00-0.05) H 04/10/17 06:10 C-Reactive Protein 10.0 MG/DL (0.00-0.3) H 04/11/17 07:00 Prot Electrophoresis (.) 04/17/17 06:20 Serum Total Protein 5.9 g/dL (6.0-8.5) L 04/17/17 06:20 Total Protein 5.6 g/dl (6.4-8.2) L 04/20/17 06:00 Albumin 2.3 g/dl (3.4-5.0) L 04/20/17 06:00 Globulin 3.3 g/dL (2.2-3.9) 04/17/17 06:20 Albumin/Globulin Ratio 0.8 (0.7-1.7) 04/17/17 06:20 Scgea-0-Mdmjiceia 0.4 gm/dL (0.0-0.4) 04/17/17 06:20 Lyihk-6-Bhrrjmdfz (%) 4.2 % (.) 04/17/17 18:00 Gpcso-3-Kltkeoynl 1.0 gm/dL (0.4-1.0) 04/17/17 06:20 Qbrtk-6-Qmkgxtaqd (%) 12.6 % (.) 04/17/17 18:00 Beta Globulins 0.9 gm/dL (0.7-1.3) 04/17/17 06:20 Beta Globulins (%) 12.8 % (.) 04/17/17 18:00 Gamma Globulins 0.9 gm/dL (0.4-1.8) 04/17/17 06:20 Gamma Globulins (%) 10.5 % (.) 04/17/17 18:00 M-Kuldip % Not observed % (Not Observed) 04/17/17 18:00 Triglycerides 133 mg/dL (35-160) 04/11/17 06:00 Cholesterol 136 mg/dL (50-200) 04/11/17 06:00 Total LDL Cholesterol 79 mg/dL (5-100) 04/11/17 06:00 HDL Cholesterol 31 mg/dL (40-60) L 04/11/17 06:00 Angiotensin Convert Enz 54 U/L (14-82) 04/16/17 15:30 TSH 1.91 uIU/ml (0.358-3.74) D 04/17/17 06:20 Free T4 1.93 ng/dl (0.76-1.46) H D 04/17/17 06:20 Free T3 1.7 pg/ml (2.0-4.4) L 04/11/17 11:03 Current Medications Generic Name Dose Route Start Last Admin Trade Name Freq PRN Reason Stop Dose Admin Collagenase 1 applic 04/10/17 10:00 04/23/17 13:21 Santyl - TP 1 applic DAILY [facility] Administration Gentamicin Sulfate 1 applic 04/16/17 10:00 04/23/17 13:21 Garamycin 0.1% Ointment - TP 1 applic DAILY [facility] Administration Heparin Sodium (Porcine) 5,000 unit 04/23/17 14:00 04/23/17 13:35 Heparin - SQ 5,000 unit TID [facility] Administration Hydralazine HCl 25 mg 04/23/17 22:00 Apresoline - PO BID [facility] Insulin Aspart 1 vial 04/17/17 07:36 04/23/17 17:24 Novolog Vial Sliding Scale - SQ 6 units ACHS [facility] Administration Protocol Insulin Detemir 8 units 04/19/17 10:00 04/23/17 06:35 Levemir Vial SQ 8 units BID@0700,2200 [facility] Administration Levothyroxine Sodium 100 mcg 04/18/17 07:00 04/23/17 06:36 Synthroid - PO 100 mcg DAILY@0700 [facility] Administration Multivitamins/Minerals/Vitamin C 1 tab 04/23/17 10:00 04/23/17 10:18 Tab-A-Vit - PO 1 tab DAILY [facility] Administration Polyethylene Glycol 17 gm 04/10/17 10:00 04/23/17 10:18 Miralax (For Daily Use) - PO Not Given DAILY [facility] Prednisone 40 mg 04/17/17 18:30 04/23/17 10:18 Deltasone - PO 40 mg BID [facility] Administration Valacyclovir HCl 500 mg 04/15/17 22:00 04/23/17 10:18 Valtrex - PO 500 mg BID [facility] Administration AP: Hypothyroidism: Normalization of TSH with slightly high FT4 of 1.93 Earlier high TSH secondary to missing doses for few days Continue LT4 to 100mcG QD Hyperglycemia sec to steroid: A1c 6.8 now Monitor BGM with Novolog Coverage as necessary Blood sugar still suboptimal. Will need to increase Novolog coverage Renal Insufficiency: s/p Biopsy Anemia Lower extremity ulcer
[2017-04-24] MEDS: HEPARIN NA (PORCINE) 5,000 UNITS/ML 1ML VIAL SQ SCH ×3 (06:38→21:28)
[2017-04-24] MEDS: INSULIN SLIDING SCALE (NOVOLOG) 1 VIAL SQ SCH ×4 (06:39→21:38)
[2017-04-24] MEDS: INSULIN DETEMIR 100 UNITS/ML MDV SQ SCH ×2 (06:39→21:39)
[2017-04-24] MEDS: LEVOTHYROXINE NA 100 MCG TABLET (FP) PO SCH (06:40)
[2017-04-24] MEDS ORDERED: INSULIN DETEMIR 100 UNITS/ML MDV SQ ONE (06:57)
[2017-04-24 07:07] LABS: BASOPHIL 0.1 % (0-2.0); MCH 28.3 pg (25.7-33.7); MCHC 32.9 g/dl (32.0-36.0); MEAN CELL VOLUME 85.9 fl (80-96); MEAN PLT VOLUME 9.6 fl (7.5-11.1); NEUTROPHILS 92.4 % (42.8-82.8); PLATELET COUNT 235 K/MM3 (134-434); RDW 16.3 % (11.6-15.6); WHITE BLOOD COUNT 12.1 K/mm3 (4.0-10.0)
[2017-04-24 07:32] LABS: ANION GAP 11 (8-16); CO2 21 mmol/L (21-32); GLUCOSE,RANDOM 156 mg/dL (74-106); MAGNESIUM 2.3 mg/dL (1.8-2.4); PHOSPHOROUS 3.9 mg/dL (2.5-4.9)
--- NOTE | 2017-04-24 09:47 | PN ---
Physical Exam: SUBJECTIVE: Patient seen and examined at bed side this morning. No complaints. Denies chest pain, sob, cough, palpitation, abdominal pain, nausea or vomiting. Bowel/Bladder habit normal. Sleep/Appetite normal. Patient mentions she was able to walk to the bathroom, sit on a chair and walk around the room and feels good. As per RN, no acute overnight events. OBJECTIVE: Vital Signs Period Temp Pulse Resp BP Sys/Ohrn Pulse Ox Last 24 Hr 97.5 F-98.5 F 53-65 16-20 154-164/67-83 96 GENERAL: Patient is sitting comfortably in bed, awake, alert, and fully oriented , in no acute distress. HEAD: Normal with no signs of trauma. EYES: EOM intact, no pallor or icterus. ENT: Ears normal, moist mucous membranes. NECK: Supple. LUNGS: Breath sounds equal, clear to auscultation bilaterally, no wheezes, no crackles, no accessory muscle use. HEART:Regular rate and rhythm, S1, S2 without murmur. ABDOMEN: Soft, nontender, nondistended, normoactive bowel sounds, no guarding, no rebound, no hepatosplenomegaly, no masses. UPPER EXTREMITIES: 2+ pulses, warm, well-perfused, no edema. LOWER EXTREMITIES: Dressing applied in both lower extremities. 2+ pulses, warm, well-perfused, b/l pitting edema. NEUROLOGICAL: No facial droop. Normal speech, gait not observed. PSYCH: Normal mood, normal affect. SKIN: B/L dressing applied in the lower extremities, Warm, dry, normal turgor, no rashes or lesions noted Laboratory Results - last 24 hr 04/17/17 04/19/17 04/23/17 18:00 07:35 13:22 WBC RBC Hgb Hct MCV MCH MCHC RDW Plt Count MPV Neutrophils % Lymphocytes % Monocytes % Eosinophils % Basophils % Sodium Potassium Chloride Carbon Dioxide Anion Gap BUN Creatinine POC Glucometer 268 Random Glucose Calcium Phosphorus Magnesium Nbjyh-9-Xsekzdbsx (%) 4.2 Tgver-0-Nfenzictg (%) 12.6 Beta Globulins (%) 12.8 Gamma Globulins (%) 10.5 M-Kuldip % Not observed Urine Total Protein 56.6 Urine PEP Interpret 60.0 Hepatitis A Ab Total Negative Hep Bs Antigen Negative Hep Bs Antibody Y Hep Bs Ab Concentration Non reactive Hep B Core Total Ab Y Hep B Core IgM Ab Negative Hep B Core Ab Interpret Negative Hepatitis C Antibody 0.1 Ref Test Comments 04/23/17 04/23/17 04/24/17 16:57 22:04 05:30 WBC RBC Hgb Hct MCV MCH MCHC RDW Plt Count MPV Neutrophils % Lymphocytes % Monocytes % Eosinophils % Basophils % Sodium Potassium Chloride Carbon Dioxide Anion Gap BUN Creatinine POC Glucometer 237 269 167 Random Glucose Calcium Phosphorus Magnesium Creue-2-Piuhvjkld (%) Mqkha-5-Auxovgelg (%) Beta Globulins (%) Gamma Globulins (%) M-Kuldip % Urine Total Protein Urine PEP Interpret Hepatitis A Ab Total Hep Bs Antigen Hep Bs Antibody Hep Bs Ab Concentration Hep B Core Total Ab Hep B Core IgM Ab Hep B Core Ab Interpret Hepatitis C Antibody Ref Test Comments 04/24/17 04/24/17 05:35 05:35 WBC 12.1 H RBC 3.39 L Hgb 9.6 L Hct 29.2 L MCV 85.9 MCH 28.3 MCHC 32.9 RDW 16.3 H Plt Count 235 MPV 9.6 Neutrophils % 92.4 H Lymphocytes % 5.2 L Monocytes % 2.3 L Eosinophils % 0.0 Basophils % 0.1 Sodium 140 Potassium 4.4 Chloride 108 H Carbon Dioxide 21 Anion Gap 11 BUN 58 H Creatinine 2.0 H POC Glucometer Random Glucose 156 H Calcium 8.0 L Phosphorus 3.9 Magnesium 2.3 Arbwm-3-Ihsuzahpa (%) Yracp-3-Jskbvqlxj (%) Beta Globulins (%) Gamma Globulins (%) M-Kuldip % Urine Total Protein Urine PEP Interpret Hepatitis A Ab Total Hep Bs Antigen Hep Bs Antibody Hep Bs Ab Concentration Hep B Core Total Ab Hep B Core IgM Ab Hep B Core Ab Interpret Hepatitis C Antibody Ref Test Comments Active Medications Generic Name Dose Route Start Last Admin Trade Name Freq PRN Reason Stop Dose Admin Collagenase 1 applic 04/10/17 10:00 04/23/17 13:21 Santyl - TP 1 applic DAILY [facility] Administration Gentamicin Sulfate 1 applic 04/16/17 10:00 04/23/17 13:21 Garamycin 0.1% Ointment - TP 1 applic DAILY [facility] Administration Heparin Sodium (Porcine) 5,000 unit 04/23/17 14:00 04/24/17 06:38 Heparin - SQ 5,000 unit TID [facility] Administration Hydralazine HCl 25 mg 04/23/17 22:00 04/23/17 22:08 Apresoline - PO 25 mg BID [facility] Administration Insulin Aspart 1 vial 04/24/17 07:00 04/24/17 06:39 Novolog Vial Sliding Scale - SQ 6 units TIDAC [facility] Administration Protocol Insulin Aspart 1 vial 04/23/17 22:00 04/23/17 22:11 Novolog Vial Sliding Scale - SQ 6 units HS [facility] Administration Protocol Insulin Detemir 8 units 04/19/17 10:00 04/24/17 06:39 Levemir Vial SQ 8 units BID@0700,2200 [facility] Administration Levothyroxine Sodium 100 mcg 04/18/17 07:00 04/24/17 06:40 Synthroid - PO 100 mcg DAILY@0700 [facility] Administration Multivitamins/Minerals/Vitamin C 1 tab 04/23/17 10:00 04/23/17 10:18 Tab-A-Vit - PO 1 tab DAILY [facility] Administration Polyethylene Glycol 17 gm 04/10/17 10:00 04/23/17 10:18 Miralax (For Daily Use) - PO Not Given DAILY [facility] Prednisone 40 mg 04/17/17 18:30 04/23/17 22:08 Deltasone - PO 40 mg BID [facility] Administration Valacyclovir HCl 500 mg 04/15/17 22:00 04/23/17 22:08 Valtrex - PO 500 mg BID [facility] Administration ASSESSMENT/PLAN: Patient is a 77 year- old- female with a past medical history of of non healing chronic RLE venous ulcer, borderline hypertension, polymyalgia, hypothyroidism, sent to ED by Dr. Silvestre for b/l lower extremity cellulitis. ASSESSMENT 1. 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 Bradycardia-Improving 4. Hyperglycemia secondary to steroid use 5. Cellulitis of bilateral lower extremity 6. Hypothyroidism 7. B/L Infiltrates 8. Normocytic anemia 9. Hypertension Plan: Pauci-immune Vasculitis Prelim kidney biopsy report came back. Myeloperoxidase + P-Anca +, C3 and C4 is normal. Good pasture's ruled out-AntigbmAb negative Less likely Lupus nephritis since AntidsDNA is negative. Kidney function is improving, creatinine 2 today. Kidney Biopsy done on 04/22/17, waiting for the final results. On Prednisone 40mg PO BID, as per rheum. Discussed with the patient about starting Cyclophosphamide or Rituximab. Printed side effects of both the drugs given (printed from pharmacy). Dr. Concepcion was informed about the kidney biospy prelim report. Repeat BMP in am. Hypertension Hydralazine 25mg PO BID added, home meds. Low salt diet Thank you for the consultative opportunity. Case to be discussed with Dr. Hamilton. Visit type - Emergency Visit Emergency Visit: Yes ED Registration Date: 04/09/17 Care time: The patient presented to the Emergency Department on the above date and was hospitalized for further evaluation of their emergent condition. - New Patient This patient is new to me today: No - Critical Care Critical Care patient: No - Discharge Referral Referred to [facility] No
[2017-04-24] MEDS: hydrALAZINE HCL 10 MG TABLET PO SCH ×2 (09:52→21:29)
[2017-04-24] MEDS: valACYclovir HCL 500 MG TABLET (FP) PO SCH ×2 (09:54→21:29)
[2017-04-24] MEDS: predniSONE 20 MG TABLET (UD) PO SCH ×2 (09:54→21:29)
[2017-04-24] MEDS: POLYETHYLENE GLYCOL 3350 119 GM BTL PO SCH (09:58)
--- NOTE | 2017-04-24 10:44 | PN ---
Progress Note, Physician Chief Complaint: stable s/p kidney bx no c/o History of Present Illness: 87-year-old black female sent in by Dr. Silvestre for evaluation of nonhealing chronic lower extremity wounds now suggestive of cellulitis. Patient states was seen earlier this week and then again today for redness and swelling of the thumb, bilateral lower extremity wounds and swelling, now with a draining wound to the side of left ankle. Patient denies fever, chills but does state pain and redness to the area. Patient states had an ultrasound a few days ago which was negative for DVT. Patient does have history of MRSA. Patient also states history of chronic venous stasis. - Current Medication List Current Medications: Active Medications Collagenase (Santyl -) 1 applic TP DAILY [facility] Last Admin: 04/23/17 13:21 Dose: 1 applic Gentamicin Sulfate (Garamycin 0.1% Ointment -) 1 applic TP DAILY [facility] Last Admin: 04/23/17 13:21 Dose: 1 applic Heparin Sodium (Porcine) (Heparin -) 5,000 unit SQ TID [facility] Last Admin: 04/24/17 06:38 Dose: 5,000 unit Hydralazine HCl (Apresoline -) 25 mg PO BID [facility] Last Admin: 04/24/17 09:52 Dose: 25 mg Insulin Aspart (Novolog Vial Sliding Scale -) 1 vial SQ TIDAC [facility] PRN Reason: Protocol Last Admin: 04/24/17 06:39 Dose: 6 units Insulin Aspart (Novolog Vial Sliding Scale -) 1 vial SQ HS [facility] PRN Reason: Protocol Last Admin: 04/23/17 22:11 Dose: 6 units Insulin Detemir (Levemir Vial) 8 units SQ BID@0700,2200 [facility] Last Admin: 04/24/17 06:39 Dose: 8 units Levothyroxine Sodium (Synthroid -) 100 mcg PO DAILY@0700 [facility] Last Admin: 04/24/17 06:40 Dose: 100 mcg Multivitamins/Minerals/Vitamin C (Tab-A-Vit -) 1 tab PO DAILY [facility] Last Admin: 04/23/17 10:18 Dose: 1 tab Polyethylene Glycol (Miralax (For Daily Use) -) 17 gm PO DAILY [facility] Last Admin: 04/24/17 09:58 Dose: Not Given Prednisone (Deltasone -) 40 mg PO BID [facility] Last Admin: 04/24/17 09:54 Dose: 40 mg Valacyclovir HCl (Valtrex -) 500 mg PO BID [facility] Last Admin: 04/24/17 09:54 Dose: 500 mg - Objective Vital Signs: Vital Signs Temperature 97.8 F 04/24/17 06:00 Pulse Rate 53 L 04/24/17 06:00 Respiratory Rate 16 04/24/17 06:00 Blood Pressure 155/83 04/24/17 06:00 O2 Sat by Pulse Oximetry (%) 96 04/23/17 21:00 Eyes: Yes: WNL, Conjunctiva Clear, EOM Intact HENT: Yes: WNL, Atraumatic, Normocephalic Neck: Yes: WNL, Supple, Trachea Midline Cardiovascular: Yes: WNL, Regular Rate and Rhythm Respiratory: Yes: WNL, Regular, CTA Bilaterally Gastrointestinal: Yes: WNL, Normal Bowel Sounds Genitourinary: Yes: WNL Musculoskeletal: Yes: WNL Extremities: Yes: WNL Edema: No Edema: LLE: 1+, RLE: 1+ Integumentary: Yes: WNL Neurological: Yes: WNL, Alert, Oriented ...Motor Strength: WNL Psychiatric: Yes: WNL Labs: CBC, BMP 04/24/17 05:35 04/24/17 05:35 INR, PTT INR 1.10 (0.82-1.09) 04/22/17 06:00 Fibrinogen 249.0 mg/dL (238-498) D 04/22/17 06:00 Assessment/Plan - Problems (1) Acute kidney injury Assessment/Plan: increased CR, hematuria and proteinuria. Hydration. Await renal biopsy results. Code(s): N17.9 - ACUTE KIDNEY FAILURE, UNSPECIFIED (2) Elevated troponin Assessment/Plan: 0.11-->0.08; normal CK. No chest pain; no acute EKG changes. ECHO: normal LVEF; moderate bilateral atrial enlargement. Sepsis (PNA), CHF, muscle breakdown may contribute to rise in TNI. Multiple cardiac risks (age; diasatoic CHF; HTN; ?lipids; sedentary). Denies prior cardiac workup. Stress MIBI when stable, if not done recently. Total cholesterol 136 mg/dL; LDL cholesterol 79 mg/dL. Code(s): R74.8 - ABNORMAL LEVELS OF OTHER SERUM ENZYMES (3) Hypothyroid Assessment/Plan: TSH 19.1; free T4 now mildly elevated. Code(s): E03.9 - HYPOTHYROIDISM, UNSPECIFIED (4) Wound infection Assessment/Plan: on Valtrex. Code(s): T14.8 - OTHER INJURY OF UNSPECIFIED BODY REGION * DO NOT USE * L08.9 - LOCAL INFECTION OF THE SKIN AND SUBCUTANEOUS TISSUE, UNSP (5) Sinus bradycardia Assessment/Plan: Asymptomatic sinus bradycardia (HR varies from 40s-60s bpm at rest; 30s while asleep). Denies dizziness; she is chronically weak. thyroid studies: free T4 mildly elevated. Pantoprazole, Colace, and Zosyn may all cause slow heart rate; they have been stopped. F/u on telemetry. Inflammatory disease (in this case, vasculitis) may be the etiology of bradycardia. ECHO: normal LVEF; moderate biatrial enlargement; mild MR and TR; mild pulmonary HTN. Code(s): R00.1 - BRADYCARDIA, UNSPECIFIED (6) Hypertension Assessment/Plan: If BP remains elevated, use antihypertensive medications that are not AV conduction blockers. (Now on hydralazine). Code(s): I10 - ESSENTIAL (PRIMARY) HYPERTENSION (7) Vasculitis Assessment/Plan: +P-Anca; possible microscopic polyangiitis. On Prednisone. Renal biopsy results are pending. Code(s): I77.6 - ARTERITIS, UNSPECIFIED
--- NOTE | 2017-04-24 11:48 | PN ---
Progress Note, Physician History of Present Illness: pulmonary alert,nad,-sob,-cough - Current Medication List Current Medications: Active Medications Collagenase (Santyl -) 1 applic TP DAILY [facility] Last Admin: 04/23/17 13:21 Dose: 1 applic Gentamicin Sulfate (Garamycin 0.1% Ointment -) 1 applic TP DAILY [facility] Last Admin: 04/23/17 13:21 Dose: 1 applic Heparin Sodium (Porcine) (Heparin -) 5,000 unit SQ TID [facility] Last Admin: 04/24/17 06:38 Dose: 5,000 unit Hydralazine HCl (Apresoline -) 25 mg PO BID [facility] Last Admin: 04/24/17 09:52 Dose: 25 mg Insulin Aspart (Novolog Vial Sliding Scale -) 1 vial SQ TIDAC [facility] PRN Reason: Protocol Last Admin: 04/24/17 06:39 Dose: 6 units Insulin Aspart (Novolog Vial Sliding Scale -) 1 vial SQ HS [facility] PRN Reason: Protocol Last Admin: 04/23/17 22:11 Dose: 6 units Insulin Detemir (Levemir Vial) 8 units SQ BID@0700,2200 [facility] Last Admin: 04/24/17 06:39 Dose: 8 units Levothyroxine Sodium (Synthroid -) 100 mcg PO DAILY@0700 [facility] Last Admin: 04/24/17 06:40 Dose: 100 mcg Multivitamins/Minerals/Vitamin C (Tab-A-Vit -) 1 tab PO DAILY [facility] Last Admin: 04/23/17 10:18 Dose: 1 tab Polyethylene Glycol (Miralax (For Daily Use) -) 17 gm PO DAILY [facility] Last Admin: 04/24/17 09:58 Dose: Not Given Prednisone (Deltasone -) 40 mg PO BID [facility] Last Admin: 04/24/17 09:54 Dose: 40 mg Valacyclovir HCl (Valtrex -) 500 mg PO BID [facility] Last Admin: 04/24/17 09:54 Dose: 500 mg - Objective Vital Signs: Vital Signs Temperature 97.7 F 04/24/17 10:00 Pulse Rate 65 04/24/17 10:00 Respiratory Rate 18 04/24/17 10:00 Blood Pressure 136/76 04/24/17 10:00 O2 Sat by Pulse Oximetry (%) 96 04/23/17 21:00 Constitutional: Yes: Well Nourished, Calm Eyes: Yes: WNL, Occular Prosthesis HENT: Yes: WNL Neck: Yes: WNL Cardiovascular: Yes: Regular Rate and Rhythm, S1, S2 Respiratory: Yes: CTA Bilaterally Gastrointestinal: Yes: Normal Bowel Sounds, Soft Extremities: Yes: WNL Edema: No Labs: CBC, BMP 04/24/17 05:35 04/24/17 05:35 INR, PTT INR 1.10 (0.82-1.09) 04/22/17 06:00 Fibrinogen 249.0 mg/dL (238-498) D 04/22/17 06:00 Problem List - Problems (1) Acute kidney injury Code(s): N17.9 - ACUTE KIDNEY FAILURE, UNSPECIFIED (2) Cellulitis Code(s): L03.90 - CELLULITIS, UNSPECIFIED Qualifiers: Site of cellulitis: extremity Site of cellulitis of extremity: lower extremity Laterality: unspecified laterality Qualified Code(s): L03.119 - Cellulitis of unspecified part of limb; L03.119 - Cellulitis of unspecified part of limb (3) Venous stasis of both lower extremities Code(s): I87.8 - OTHER SPECIFIED DISORDERS OF VEINS (4) Hemoptysis Code(s): R04.2 - HEMOPTYSIS (5) Acute hypoxemic respiratory failure Code(s): J96.01 - ACUTE RESPIRATORY FAILURE WITH HYPOXIA (6) Bilateral pulmonary infiltrates on chest x-ray Code(s): R91.8 - OTHER NONSPECIFIC ABNORMAL FINDING OF LUNG FIELD (7) Vasculitis Code(s): I77.6 - ARTERITIS, UNSPECIFIED Assessment/Plan IMP ACUTE HYPOXEMIC RESPIRATORY FAILURE EXTENSIVE BILATERAL INFILTRATES 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 HEMOPTYSIS SECONDARY TO ABOVE RESOLVED HTN ANEMIA CHRONIC VENOUS STASIS HYPOTHYROIDISM PLAN MONITOR RENAL FUNCTION,LYTES,CBC F/U CHEST X-RAYS CHECK PATH PREDNISONE DR CORBIN Problem List - Problems (1) Acute kidney injury Code(s): N17.9 - ACUTE KIDNEY FAILURE, UNSPECIFIED (2) Cellulitis Code(s): L03.90 - CELLULITIS, UNSPECIFIED Qualifiers: Site of cellulitis: extremity Site of cellulitis of extremity: lower extremity Laterality: unspecified laterality Qualified Code(s): L03.119 - Cellulitis of unspecified part of limb (3) Venous stasis of both lower extremities Code(s): I87.8 - OTHER SPECIFIED DISORDERS OF VEINS (4) Hemoptysis Code(s): R04.2 - HEMOPTYSIS (5) Acute hypoxemic respiratory failure Code(s): J96.01 - ACUTE RESPIRATORY FAILURE WITH HYPOXIA (6) Bilateral pulmonary infiltrates on chest x-ray Code(s): R91.8 - OTHER NONSPECIFIC ABNORMAL FINDING OF LUNG FIELD (7) Vasculitis Code(s): I77.6 - ARTERITIS, UNSPECIFIED
[2017-04-24] MEDS: MULTIVITAMINS (DAILY MVI) TABLET (FP) PO SCH (12:10)
[2017-04-24] MEDS: COLLAGENASE CLOSTRIDIUM HIST. 30 GRAMS TUBE TP SCH (12:11)
[2017-04-24] MEDS: GENTAMICIN SO4 0.1% TOPICAL OINTMENT 15 GM/TUBE TUBE TP SCH (12:11)
--- NOTE | 2017-04-24 14:44 | PN ---
Progress Note (short form) - Note Progress Note: Patient seen and examined at bedside for b/l LE chronic venous stasis ulcers. Patient denies any new symptoms, c/p, SOB, N/V/D. States she has pain with pressure over the ulcer sites, otherwise comfortable. A&Ox3, VSS unlabored resp on RA Right LE with large chronic venous stasis ulcer over distal 1/3 at medial aspect proximal to medial malleolus with fibrinous clot along base. Boarders clean and intact. surrounding tissue with no evidence of erythema, or ecchymosis with mild diffuse edema, Algenate applied and wound re-dressed with 4x4 and kurlex. Left LE with several small venous stasis ulcers over lateral 1/3 LE with surrounding tissue intact and no evidence of tracking erythema or active infection. wounds redessed with Gentimycin gel, 4x4 and kurlex b/l LE compartments soft supple and nontender to palpation posterior compartment. b/l feet warm and well perfused with + pedal pulses and NVID Imp: Chronic venous stasis ulcers Plan: 1) Continue daily dressing changes with Gentimycin and dry dressing to left LE 2) Daily superficial dressing changes to right LE with Algenate exchange every other day. 3) Elevate b/l LE 4) Keep heels off bed
--- NOTE | 2017-04-24 15:24 | PN ---
Teaching Attending Note Name of Resident: Leighann Domínguez (Nephrology) ATTENDING PHYSICIAN STATEMENT I saw and evaluated the patient. I reviewed the resident's note and discussed the case with the resident. I agree with the resident's findings and plan as documented. Renal Pt seen and examined at bedside. She is awake and alert. She denies shortness of breath. Current Medications Generic Name Dose Route Start Last Admin Trade Name Byron PRN Reason Stop Dose Admin Collagenase 1 applic 04/10/17 10:00 04/24/17 12:11 Santyl - TP 1 applic DAILY [facility] Administration Gentamicin Sulfate 1 applic 04/16/17 10:00 04/24/17 12:11 Garamycin 0.1% Ointment - TP 1 applic DAILY [facility] Administration Heparin Sodium (Porcine) 5,000 unit 04/23/17 14:00 04/24/17 14:52 Heparin - SQ 5,000 unit TID [facility] Administration Hydralazine HCl 25 mg 04/23/17 22:00 04/24/17 09:52 Apresoline - PO 25 mg BID [facility] Administration Insulin Aspart 1 vial 04/24/17 07:00 04/24/17 12:10 Novolog Vial Sliding Scale - SQ 6 units TIDAC [facility] Administration Protocol Insulin Aspart 1 vial 04/23/17 22:00 04/23/17 22:11 Novolog Vial Sliding Scale - SQ 6 units HS [facility] Administration Protocol Insulin Detemir 8 units 04/19/17 10:00 04/24/17 06:39 Levemir Vial SQ 8 units BID@0700,2200 [facility] Administration Levothyroxine Sodium 100 mcg 04/18/17 07:00 04/24/17 06:40 Synthroid - PO 100 mcg DAILY@0700 [facility] Administration Multivitamins/Minerals/Vitamin C 1 tab 04/23/17 10:00 04/24/17 12:10 Tab-A-Vit - PO 1 tab DAILY [facility] Administration Polyethylene Glycol 17 gm 04/10/17 10:00 04/24/17 09:58 Miralax (For Daily Use) - PO Not Given DAILY [facility] Prednisone 40 mg 04/17/17 18:30 04/24/17 09:54 Deltasone - PO 40 mg BID [facility] Administration Valacyclovir HCl 500 mg 04/15/17 22:00 04/24/17 09:54 Valtrex - PO 500 mg BID [facility] Administration Laboratory Tests 04/23/17 04/24/17 04/24/17 05:30 05:35 05:35 Hgb 9.5 L 9.6 L BUN 58 H Creatinine 2.0 H Last Vital Signs Temp Pulse Resp BP Pulse Ox 97.9 F 82 18 130/75 96 04/24/17 13:48 04/24/17 13:48 04/24/17 13:48 04/24/17 13:48 04/24/17 09:00 cardio s1s2 reg pulm clear GI soft bs positive ext trace edema neuro awake and alert Impression 1. 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 lower extremity ulcer 3. hypothyroid 4. HTN 5. polymyalgia 6. anemia Plan - spoke to pathology, pt has pauci immune vasculitis and necrotizing arteritis - discussed with rheumatology, will start treatment - provided information about treatment options to pt - cont current meds - monitor blood pressure - aspirin is stopped since Saturday of this week - recall cardiology for follow up for whether or not she needs aspirin Problem List - Problems (1) Acute kidney injury Code(s): N17.9 - ACUTE KIDNEY FAILURE, UNSPECIFIED (2) Cellulitis Code(s): L03.90 - CELLULITIS, UNSPECIFIED Qualifiers: Site of cellulitis: extremity Site of cellulitis of extremity: lower extremity Laterality: unspecified laterality Qualified Code(s): L03.119 - Cellulitis of unspecified part of limb; L03.119 - Cellulitis of unspecified part of limb (3) Hypothyroid Code(s): E03.9 - HYPOTHYROIDISM, UNSPECIFIED (4) Venous stasis of both lower extremities Code(s): I87.8 - OTHER SPECIFIED DISORDERS OF VEINS
--- NOTE | 2017-04-24 17:29 | PN ---
Physical Exam: SUBJECTIVE: Patient seen and examined sitting on edge of bed. Voices no complaints. OBJECTIVE: Vital Signs Period Temp Pulse Resp BP Sys/Horn Pulse Ox Last 24 Hr 97.5 F-98.5 F 53-82 16-20 130-161/67-83 96-96 GENERAL: The patient is awake, alert, and fully oriented, in no acute distress. HEAD: Normal with no signs of trauma. LUNGS: Breath sounds equal, clear to auscultation bilaterally, no wheezes, no crackles, no accessory muscle use. HEART: Regular rate and rhythm, S1, S2 without murmur, rub or gallop. ABDOMEN: Soft, nontender, nondistended, normoactive bowel sounds, no guarding, no rebound UPPER EXTREMITIES: 2+ pulses, warm, well-perfused, no edema. LOWER EXTREMITIES: large non-healing ulcer medial aspect right leg, smaller ulcers left leg; 1-2+ bilateral edema NEUROLOGICAL: Cranial nerves II through XII grossly intact. Normal speech, steady gait with a walker observed PSYCH: Normal mood, normal affect. Laboratory Results - last 24 hr 04/23/17 04/24/17 04/24/17 22:04 05:30 05:35 WBC 12.1 H RBC 3.39 L Hgb 9.6 L Hct 29.2 L MCV 85.9 MCH 28.3 MCHC 32.9 RDW 16.3 H Plt Count 235 MPV 9.6 Neutrophils % 92.4 H Lymphocytes % 5.2 L Monocytes % 2.3 L Eosinophils % 0.0 Basophils % 0.1 Sodium Potassium Chloride Carbon Dioxide Anion Gap BUN Creatinine POC Glucometer 269 167 Random Glucose Calcium Phosphorus Magnesium 04/24/17 04/24/17 05:35 12:03 WBC RBC Hgb Hct MCV MCH MCHC RDW Plt Count MPV Neutrophils % Lymphocytes % Monocytes % Eosinophils % Basophils % Sodium 140 Potassium 4.4 Chloride 108 H Carbon Dioxide 21 Anion Gap 11 BUN 58 H Creatinine 2.0 H POC Glucometer 180 Random Glucose 156 H Calcium 8.0 L Phosphorus 3.9 Magnesium 2.3 Active Medications Generic Name Dose Route Start Last Admin Trade Name Freq PRN Reason Stop Dose Admin Collagenase 1 applic 04/10/17 10:00 04/24/17 12:11 Santyl - TP 1 applic DAILY [facility] Administration Gentamicin Sulfate 1 applic 04/16/17 10:00 04/24/17 12:11 Garamycin 0.1% Ointment - TP 1 applic DAILY [facility] Administration Heparin Sodium (Porcine) 5,000 unit 04/23/17 14:00 04/24/17 14:52 Heparin - SQ 5,000 unit TID [facility] Administration Hydralazine HCl 25 mg 04/23/17 22:00 04/24/17 09:52 Apresoline - PO 25 mg BID [facility] Administration Insulin Aspart 1 vial 04/24/17 07:00 04/24/17 12:10 Novolog Vial Sliding Scale - SQ 6 units TIDAC [facility] Administration Protocol Insulin Aspart 1 vial 04/23/17 22:00 04/23/17 22:11 Novolog Vial Sliding Scale - SQ 6 units HS [facility] Administration Protocol Insulin Detemir 8 units 04/19/17 10:00 04/24/17 06:39 Levemir Vial SQ 8 units BID@0700,2200 [facility] Administration Levothyroxine Sodium 100 mcg 04/18/17 07:00 04/24/17 06:40 Synthroid - PO 100 mcg DAILY@0700 [facility] Administration Multivitamins/Minerals/Vitamin C 1 tab 04/23/17 10:00 04/24/17 12:10 Tab-A-Vit - PO 1 tab DAILY [facility] Administration Polyethylene Glycol 17 gm 04/10/17 10:00 04/24/17 09:58 Miralax (For Daily Use) - PO Not Given DAILY [facility] Prednisone 40 mg 04/17/17 18:30 04/24/17 09:54 Deltasone - PO 40 mg BID [facility] Administration Valacyclovir HCl 500 mg 04/15/17 22:00 04/24/17 09:54 Valtrex - PO 500 mg BID [facility] Administration ASSESSMENT/PLAN: 87 year-old female with a PMH significant for HTN, chronic venous stasis lower extremity ulcers, polymyaglia rheumatica, and hypothyroidism, admitted on for bilateral lower extremity cellulitis and MYRTLE. Hospital course complicated by new onset of hemoptysis with multfocal consolidative opacities, possible glomerulonephritis (hematura, proteineuria with hyaline and granular casts) and progressive elevation of creatinine. 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 Renal biopsy performed 04/22. Pauci immune vasculitis Necrotizing arteritis --per Dr. Hamliton's note which has been reviewed, preliminary biopsy result shows pauci immune vasculitis and necrotizing arteritis --treatment options under discussion with patient --continue prednisone PO 40mg BID B/l lower extremity cellulitis with chronic lower extremity ulcers - foot ulcers may be secondary to vasculitis as well - stable off antibiotics Elevated troponin --troponin 0.11-->0.08, likely demand, do not suspect primary NC --Echo: normal LV; moderate BLAE --continue to hold ASA, will discuss with cardiology need for ongoing daily ASA --stress as outpatient Chronic diastolic heart failure --overall euvolemic MYRTLE on CKD --04/12 renal/bladder: evidence of chronic medical disease --baseline Cr 0.9, Cr 2.0 today --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 Full code. Visit type - Emergency Visit Emergency Visit: Yes ED Registration Date: 04/09/17 Care time: The patient presented to the Emergency Department on the above date and was hospitalized for further evaluation of their emergent condition. - New Patient This patient is new to me today: No - Critical Care Critical Care patient: No
--- NOTE | 2017-04-24 18:38 | PN ---
Progress Note (short form) - Note Progress Note: I am aware of pathology preliminary report: Pauci immune vasculitis with necrotizing arteritis. 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 The patient is feeling well. No SOB and no arthralgias. She has had bradychardia, now stable. No change in ulcers. On the PE lungs are clear, no active joints. Laboratory work-up creatinine 2.0, no change in urinalysis. As per my discussion with Dr. Hamilton I suggest to start the patient on Rituximab based on the Bruno protocol (375 mg /m2 once per week for 4 doses). I discussed the alternatives with the patient and she agreed with the treatment. I checked with the pharmacy and the medication can be given tomorrow. I discussed the treatment with the nurse in the floor. The patient will be transferred to the 7th floor. I placed the protocol in the chart. For now continue with the same dose of Prednisone. If the patient is stable after the treatment she can be discharged and followed up as outpatient. 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
[2017-04-25] MEDS: HEPARIN NA (PORCINE) 5,000 UNITS/ML 1ML VIAL SQ SCH ×3 (06:28→22:05)
[2017-04-25] MEDS: INSULIN DETEMIR 100 UNITS/ML MDV SQ SCH ×2 (06:28→22:06)
[2017-04-25] MEDS: LEVOTHYROXINE NA 100 MCG TABLET (FP) PO SCH (06:28)
[2017-04-25] MEDS: INSULIN SLIDING SCALE (NOVOLOG) 1 VIAL SQ SCH ×4 (06:29→22:07)
[2017-04-25] MEDS ORDERED: INSULIN (NOVOLOG) ASPART 100 UNITS/ML 10ML VIAL ONE ×2 (06:43→11:09)
[2017-04-25 08:08] LABS: ANION GAP 8 (8-16); CO2 23 mmol/L (21-32); CREATININE 2.2 mg/dL (0.55-1.02); GLUCOSE,RANDOM 130 mg/dL (74-106)
[2017-04-25] MEDS: MULTIVITAMINS (DAILY MVI) TABLET (FP) PO SCH (09:45)
[2017-04-25] MEDS: valACYclovir HCL 500 MG TABLET (FP) PO SCH ×2 (09:46→22:04)
[2017-04-25] MEDS: hydrALAZINE HCL 10 MG TABLET PO SCH ×2 (09:46→22:04)
[2017-04-25] MEDS: predniSONE 20 MG TABLET (UD) PO SCH ×2 (09:46→22:04)
[2017-04-25] MEDS ORDERED: methylPREDNISolone NA SUCC 125 MG/2 ML VIAL IVPB ONE (10:00)
[2017-04-25] MEDS ORDERED: diphenhydrAMINE HCL 25 MG CAPSULE (FP) PO ONE (10:00)
[2017-04-25] MEDS ORDERED: ACETAMINOPHEN 500 MG TABLET (FP) PO ONE (10:00)
--- NOTE | 2017-04-25 10:15 | PN ---
Physical Exam: SUBJECTIVE: Patient seen and examined at bed side this morning. No complaints. Denies chest pain, sob, cough, palpitation, abdominal pain, nausea or vomiting. Bowel/Bladder habit normal. Sleep/Appetite normal. As per RN, no acute overnight events. OBJECTIVE: Vital Signs Period Temp Pulse Resp BP Sys/Horn Pulse Ox Last 24 Hr 97.7 F-98.7 F 50-82 16-20 130-151/58-75 97 GENERAL: Patient is sitting comfortably in bed, awake, alert, and fully oriented , in no acute distress. HEAD: Normal with no signs of trauma. EYES: EOM intact, no pallor or icterus. ENT: Ears normal, moist mucous membranes. NECK: Supple. LUNGS: Breath sounds equal, clear to auscultation bilaterally, no wheezes, no crackles, no accessory muscle use. HEART:Regular rate and rhythm, S1, S2 without murmur. ABDOMEN: Soft, nontender, nondistended, normoactive bowel sounds, no guarding, no rebound, no hepatosplenomegaly, no masses. UPPER EXTREMITIES: 2+ pulses, warm, well-perfused, no edema. LOWER EXTREMITIES: Dressing applied in both lower extremities. 2+ pulses, warm, well-perfused, b/l pitting edema. NEUROLOGICAL: No facial droop. Normal speech, gait not observed. PSYCH: Normal mood, normal affect. SKIN: B/L dressing applied in the lower extremities, Warm, dry, normal turgor, no rashes or lesions noted Laboratory Results - last 24 hr 04/24/17 04/24/17 04/24/17 12:03 17:13 21:36 Sodium Potassium Chloride Carbon Dioxide Anion Gap BUN Creatinine POC Glucometer 180 234 168 Random Glucose Calcium 04/25/17 04/25/17 05:35 06:25 Sodium 142 Potassium 4.5 Chloride 111 H Carbon Dioxide 23 Anion Gap 8 BUN 62 H Creatinine 2.2 H POC Glucometer 140 Random Glucose 130 H Calcium 8.0 L Active Medications Generic Name Dose Route Start Last Admin Trade Name Freq PRN Reason Stop Dose Admin Collagenase 1 applic 04/10/17 10:00 04/24/17 12:11 Santyl - TP 1 applic DAILY [facility] Administration Gentamicin Sulfate 1 applic 04/16/17 10:00 04/24/17 12:11 Garamycin 0.1% Ointment - TP 1 applic DAILY [facility] Administration Heparin Sodium (Porcine) 5,000 unit 04/23/17 14:00 04/25/17 06:28 Heparin - SQ 5,000 unit TID [facility] Administration Hydralazine HCl 25 mg 04/23/17 22:00 04/25/17 09:46 Apresoline - PO 25 mg BID [facility] Administration Rituximab 500 mg/ Rituximab 365.5 mls @ 50 mls/hr 04/25/17 10:30 231 mg/ Dextrose IVPB 04/25/17 17:48 ONCE ONE Insulin Aspart 1 vial 04/24/17 07:00 04/25/17 06:29 Novolog Vial Sliding Scale - SQ Not Given [facility] Protocol Insulin Aspart 1 vial 04/23/17 22:00 04/24/17 21:38 Novolog Vial Sliding Scale - SQ Not Given [facility] Protocol Insulin Detemir 8 units 04/19/17 10:00 04/25/17 06:28 Levemir Vial SQ 8 units BID@0700,2200 [facility] Administration Levothyroxine Sodium 100 mcg 04/18/17 07:00 04/25/17 06:28 Synthroid - PO 100 mcg DAILY@0700 [facility] Administration Multivitamins/Minerals/Vitamin C 1 tab 04/23/17 10:00 04/25/17 09:45 Tab-A-Vit - PO 1 tab DAILY [facility] Administration Polyethylene Glycol 17 gm 04/10/17 10:00 04/24/17 09:58 Miralax (For Daily Use) - PO Not Given DAILY [facility] Prednisone 40 mg 04/17/17 18:30 04/25/17 09:46 Deltasone - PO 40 mg BID [facility] Administration Valacyclovir HCl 500 mg 04/15/17 22:00 04/25/17 09:46 Valtrex - PO 500 mg BID [facility] Administration Patient is a 77 year- old- female with a past medical history of of non healing chronic RLE venous ulcer, borderline hypertension, polymyalgia, hypothyroidism, sent to ED by Dr. Silvestre for b/l lower extremity cellulitis. ASSESSMENT 1. Acute Kidney Injury likely due to vasculitis 2. 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 Bradycardia-Improving 4. Hyperglycemia secondary to steroid use 5. Cellulitis of bilateral lower extremity 6. Hypothyroidism 7. B/L Infiltrates 8. Normocytic anemia 9. Hypertension Plan: Pauci-immune Vasculitis Prelim kidney biopsy report came back, likely Microscopic polyangitis. Myeloperoxidase + P-Anca +, C3 and C4 is normal. Kidney function is about the same, creatinine 2.2 today. Kidney Biopsy done on 04/22/17, waiting for the final results. On Prednisone 40mg PO BID, as per rheum. Patient decided to start with Rituximab understanding the risks and benefits of the drug. Plan is to give her one dose of Rituximab today and possibly discharge her. Dose of Rituximab, as per rheum. Repeat BMP in am. Hypertension-controlled Hydralazine 25mg PO BID added, home meds. Low salt diet Rest as per primary. Thank you for the consultative opportunity. Case to be discussed with Dr. Hamilton. Visit type - Emergency Visit Emergency Visit: Yes ED Registration Date: 04/09/17 Care time: The patient presented to the Emergency Department on the above date and was hospitalized for further evaluation of their emergent condition. - New Patient This patient is new to me today: No - Critical Care Critical Care patient: No
[2017-04-25] MEDS ORDERED: RITUXIMAB IVPB ONE (10:30)
[2017-04-25] MEDS ORDERED: WATER IVPB ONE (10:30)
[2017-04-25] MEDS ORDERED: DEXTROSE 5% IVPB ONE (10:30)
--- NOTE | 2017-04-25 10:36 | PN ---
Physical Exam: PULMONARY CONSULT SUBJECTIVE: Patient seen and examined. Asymptomatic. No CP, no SOB. No hemoptysis. HARJEET overnight. OBJECTIVE: Vital Signs Period Temp Pulse Resp BP Sys/Horn Pulse Ox Last 24 Hr 97.7 F-98.7 F 50-82 16-20 130-151/58-75 97 GEN: AAOx3, NAD, Lying comfortably HEENT: PERRLA, EOMi CV: S1, S2, bradycardic rate, regular rhythm LUNG: CTABL ABD: Soft, NT, ND, normoactive BS MSK: Both legs wrapped, visible reduced erythema of legs bilaterally Laboratory Results - last 24 hr 04/24/17 04/24/17 04/24/17 12:03 17:13 21:36 Sodium Potassium Chloride Carbon Dioxide Anion Gap BUN Creatinine POC Glucometer 180 234 168 Random Glucose Calcium 04/25/17 04/25/17 05:35 06:25 Sodium 142 Potassium 4.5 Chloride 111 H Carbon Dioxide 23 Anion Gap 8 BUN 62 H Creatinine 2.2 H POC Glucometer 140 Random Glucose 130 H Calcium 8.0 L Active Medications Generic Name Dose Route Start Last Admin Trade Name Freq PRN Reason Stop Dose Admin Collagenase 1 applic 04/10/17 10:00 04/24/17 12:11 Santyl - TP 1 applic DAILY [facility] Administration Gentamicin Sulfate 1 applic 04/16/17 10:00 04/24/17 12:11 Garamycin 0.1% Ointment - TP 1 applic DAILY [facility] Administration Heparin Sodium (Porcine) 5,000 unit 04/23/17 14:00 04/25/17 06:28 Heparin - SQ 5,000 unit TID [facility] Administration Hydralazine HCl 25 mg 04/23/17 22:00 04/25/17 09:46 Apresoline - PO 25 mg BID [facility] Administration Rituximab 500 mg/ Rituximab 365.5 mls @ 50 mls/hr 04/25/17 10:30 231 mg/ Dextrose IVPB 04/25/17 17:48 ONCE ONE Insulin Aspart 1 vial 04/24/17 07:00 04/25/17 06:29 Novolog Vial Sliding Scale - SQ Not Given [facility] Protocol Insulin Aspart 1 vial 04/23/17 22:00 04/24/17 21:38 Novolog Vial Sliding Scale - SQ Not Given [facility] Protocol Insulin Detemir 8 units 04/19/17 10:00 04/25/17 06:28 Levemir Vial SQ 8 units BID@0700,2200 [facility] Administration Levothyroxine Sodium 100 mcg 04/18/17 07:00 04/25/17 06:28 Synthroid - PO 100 mcg DAILY@0700 [facility] Administration Multivitamins/Minerals/Vitamin C 1 tab 04/23/17 10:00 04/25/17 09:45 Tab-A-Vit - PO 1 tab DAILY [facility] Administration Polyethylene Glycol 17 gm 04/10/17 10:00 04/24/17 09:58 Miralax (For Daily Use) - PO Not Given DAILY [facility] Prednisone 40 mg 04/17/17 18:30 04/25/17 09:46 Deltasone - PO 40 mg BID [facility] Administration Valacyclovir HCl 500 mg 04/15/17 22:00 04/25/17 09:46 Valtrex - PO 500 mg BID [facility] Administration ASSESSMENT/PLAN: Ms. Chiang is a 77yo F with PMHx of Polymyalgia rheumatica, HTN, Hypothyroidism , admitted for bilateral lower extremity cellulitis. During the hospitalization , she developed hemoptysis, SOB, and hypoxia (86% on RA). # Microscopic Polyangitis - +pANCA, +myeloperoxidase, +biopsy - Starting Immunosuppressant therapy w/ Rituximab as per Rheum - Continue Prednisone 40mg BID - Cr function stabilized - Can f/u CXR with treatments Rest as per Primary Team. Discussed w/ Dr Breaux. Will follow Osorio Wilson MD - PGY1 Visit type - Emergency Visit Emergency Visit: No - New Patient This patient is new to me today: No - Critical Care Critical Care patient: No - Discharge Referral Referred to [facility] No
[2017-04-25] MEDS: POLYETHYLENE GLYCOL 3350 119 GM BTL PO SCH (11:59)
[2017-04-25] MEDS: COLLAGENASE CLOSTRIDIUM HIST. 30 GRAMS TUBE TP SCH (12:01)
--- NOTE | 2017-04-25 12:06 | PN ---
Progress Note (short form) - Note Progress Note: PULMONARY No further hemoptysis. No shortness of breath, fevers or chills. Last Vital Signs Temp Pulse Resp BP Pulse Ox 97.5 F L 60 20 137/61 97 04/25/17 09:00 04/25/17 09:00 04/25/17 09:00 04/25/17 09:00 04/24/17 21:00 Gen: NAD at rest Heart: RRR Lung: scattered rales Abd: soft, nontender Ext: + edema CBC, BMP 04/24/17 05:35 04/25/17 05:35 Active Medications Collagenase (Santyl -) 1 applic TP DAILY [facility] Last Admin: 04/25/17 12:01 Dose: Not Given Gentamicin Sulfate (Garamycin 0.1% Ointment -) 1 applic TP DAILY [facility] Last Admin: 04/24/17 12:11 Dose: 1 applic Heparin Sodium (Porcine) (Heparin -) 5,000 unit SQ TID [facility] Last Admin: 04/25/17 06:28 Dose: 5,000 unit Hydralazine HCl (Apresoline -) 25 mg PO BID [facility] Last Admin: 04/25/17 09:46 Dose: 25 mg Rituximab 500 mg/ Rituximab (231 mg/ Dextrose) 365.5 mls @ 50 mls/hr IVPB ONCE ONE Stop: 04/25/17 17:48 Insulin Aspart (Novolog Vial Sliding Scale -) 1 vial SQ TIDAC [facility] PRN Reason: Protocol Last Admin: 04/25/17 11:53 Dose: 6 units Insulin Aspart (Novolog Vial Sliding Scale -) 1 vial SQ HS [facility] PRN Reason: Protocol Last Admin: 04/24/17 21:38 Dose: Not Given Insulin Detemir (Levemir Vial) 8 units SQ BID@0700,2200 [facility] Last Admin: 04/25/17 06:28 Dose: 8 units Levothyroxine Sodium (Synthroid -) 100 mcg PO DAILY@0700 [facility] Last Admin: 04/25/17 06:28 Dose: 100 mcg Multivitamins/Minerals/Vitamin C (Tab-A-Vit -) 1 tab PO DAILY [facility] Last Admin: 04/25/17 09:45 Dose: 1 tab Polyethylene Glycol (Miralax (For Daily Use) -) 17 gm PO DAILY [facility] Last Admin: 10/05/17 11:59 Dose: Not Given Prednisone (Deltasone -) 40 mg PO BID [facility] Last Admin: 04/25/17 09:46 Dose: 40 mg Valacyclovir HCl (Valtrex -) 500 mg PO BID [facility] Last Admin: 04/25/17 09:46 Dose: 500 mg A/P Pauci Immune Vasculitis Hemoptysis resolved Acute Kidney Injury HTN Anemia Hypothyroidism - f/u renal biopsy - continue prednisone, rituximab per rheum - inhaled bronchodilators - O2 to keep SpO2 >90% - DVT prophylaxis
--- NOTE | 2017-04-25 12:39 | PN ---
Progress Note (short form) - Note Progress Note: Feels good S/P renal biopsy denies any complaints Blood sugar acceptable Vital Signs Period Temp Pulse Resp BP Sys/Horn Pulse Ox Last 24 Hr 97.5 F-98.7 F 50-82 16-20 130-151/58-75 97 PE: AO3 NecK: Supple, No JVD HEENT: PERRL, EOMI Lungs: CTA CVS: S1S2 Abd: Benign Ext:+ edema, Dressing both legs Neuro: No focal deficit CMP Sodium 142 mmol/L (136-145) 04/25/17 05:35 Potassium 4.5 mmol/L (3.5-5.1) 04/25/17 05:35 Chloride 111 mmol/L (98-107) H 04/25/17 05:35 Carbon Dioxide 23 mmol/L (21-32) 04/25/17 05:35 Anion Gap 8 (8-16) 04/25/17 05:35 BUN 62 mg/dL (7-18) H 04/25/17 05:35 Creatinine 2.2 mg/dL (0.55-1.02) H 04/25/17 05:35 Creat Clearance w eGFR 21.70 (>60) 04/20/17 06:00 POC Glucometer 183 UNITS (()) 04/25/17 11:35 Random Glucose 130 mg/dL (74-106) H 04/25/17 05:35 Hemoglobin A1c % 6.8 % (4.8-6.0) H 04/23/17 05:30 Lactic Acid 0.9 mmol/L (0.4-2.0) 04/12/17 18:30 Calcium 8.0 mg/dL (8.5-10.1) L 04/25/17 05:35 Phosphorus 3.9 mg/dL (2.5-4.9) 04/24/17 05:35 Magnesium 2.3 mg/dL (1.8-2.4) 04/24/17 05:35 Iron 13 ug/dL (27-139) L 04/12/17 14:10 TIBC 163 ug/dL (250-450) L 04/12/17 14:10 Iron Saturation 8 % (15-55) L 04/12/17 14:10 Transferrin 127 mg/dL (200-370) L 04/12/17 14:10 Ferritin Cancelled 04/12/17 14:10 Total Bilirubin 0.4 mg/dL (0.2-1.0) 04/20/17 06:00 AST 8 U/L (15-37) L D 04/20/17 06:00 ALT 20 U/L (12-78) 04/20/17 06:00 Alkaline Phosphatase 60 U/L (45-117) 04/20/17 06:00 LD Total 201 U/L (84-246) 04/13/17 06:15 Creatine Kinase 95 IU/L (26-192) 04/10/17 06:10 Creatine Kinase Index 0.5 % (0.0-5.0) 04/09/17 14:23 CK-MB (CK-2) 1.031 ng/mL (0.5-3.6) 04/09/17 14:23 Troponin I 0.08 ng/ml (0.00-0.05) H 04/10/17 06:10 C-Reactive Protein 10.0 MG/DL (0.00-0.3) H 04/11/17 07:00 Prot Electrophoresis (.) 04/17/17 06:20 Serum Total Protein 5.9 g/dL (6.0-8.5) L 04/17/17 06:20 Total Protein 5.6 g/dl (6.4-8.2) L 04/20/17 06:00 Albumin 2.3 g/dl (3.4-5.0) L 04/20/17 06:00 Globulin 3.3 g/dL (2.2-3.9) 04/17/17 06:20 Albumin/Globulin Ratio 0.8 (0.7-1.7) 04/17/17 06:20 Hzffj-4-Edbohjbiv 0.4 gm/dL (0.0-0.4) 04/17/17 06:20 Cwnwc-3-Wgbvaavpo (%) 4.2 % (.) 04/17/17 18:00 Ycogk-6-Shobdjpxn 1.0 gm/dL (0.4-1.0) 04/17/17 06:20 Alryc-2-Lcpjmzqqk (%) 12.6 % (.) 04/17/17 18:00 Beta Globulins 0.9 gm/dL (0.7-1.3) 04/17/17 06:20 Beta Globulins (%) 12.8 % (.) 04/17/17 18:00 Gamma Globulins 0.9 gm/dL (0.4-1.8) 04/17/17 06:20 Gamma Globulins (%) 10.5 % (.) 04/17/17 18:00 M-Kuldip % Not observed % (Not Observed) 04/17/17 18:00 Triglycerides 133 mg/dL (35-160) 04/11/17 06:00 Cholesterol 136 mg/dL (50-200) 04/11/17 06:00 Total LDL Cholesterol 79 mg/dL (5-100) 04/11/17 06:00 HDL Cholesterol 31 mg/dL (40-60) L 04/11/17 06:00 Angiotensin Convert Enz 54 U/L (14-82) 04/16/17 15:30 TSH 1.91 uIU/ml (0.358-3.74) D 04/17/17 06:20 Free T4 1.93 ng/dl (0.76-1.46) H D 04/17/17 06:20 Free T3 1.7 pg/ml (2.0-4.4) L 04/11/17 11:03 Current Medications Generic Name Dose Route Start Last Admin Trade Name Byron PRN Reason Stop Dose Admin Collagenase 1 applic 04/10/17 10:00 04/25/17 12:01 Santyl - TP Not Given DAILY [facility] Gentamicin Sulfate 1 applic 04/16/17 10:00 04/24/17 12:11 Garamycin 0.1% Ointment - TP 1 applic DAILY [facility] Administration Heparin Sodium (Porcine) 5,000 unit 04/23/17 14:00 04/25/17 06:28 Heparin - SQ 5,000 unit TID [facility] Administration Hydralazine HCl 25 mg 04/23/17 22:00 04/25/17 09:46 Apresoline - PO 25 mg BID [facility] Administration Rituximab 500 mg/ Rituximab 365.5 mls @ 50 mls/hr 04/25/17 10:30 231 mg/ Dextrose IVPB 04/25/17 17:48 ONCE ONE Insulin Aspart 1 vial 04/24/17 07:00 04/25/17 11:53 Novolog Vial Sliding Scale - SQ 6 units TIDAC [facility] Administration Protocol Insulin Aspart 1 vial 04/23/17 22:00 04/24/17 21:38 Novolog Vial Sliding Scale - SQ Not Given HS [facility] Protocol Insulin Detemir 8 units 04/19/17 10:00 04/25/17 06:28 Levemir Vial SQ 8 units BID@0700,2200 [facility] Administration Levothyroxine Sodium 100 mcg 04/18/17 07:00 04/25/17 06:28 Synthroid - PO 100 mcg DAILY@0700 [facility] Administration Multivitamins/Minerals/Vitamin C 1 tab 04/23/17 10:00 04/25/17 09:45 Tab-A-Vit - PO 1 tab DAILY [facility] Administration Polyethylene Glycol 17 gm 04/10/17 10:00 04/25/17 11:59 Miralax (For Daily Use) - PO Not Given DAILY [facility] Prednisone 40 mg 04/17/17 18:30 04/25/17 09:46 Deltasone - PO 40 mg BID [facility] Administration Valacyclovir HCl 500 mg 04/15/17 22:00 04/25/17 09:46 Valtrex - PO 500 mg BID [facility] Administration AP: Hypothyroidism: Normalization of TSH with slightly high FT4 of 1.93 Earlier high TSH secondary to missing doses for few days Continue LT4 to 100mcG QD Hyperglycemia sec to steroid: A1c 6.8 now Monitor BGM with Novolog Coverage as necessary Blood sugar better on current Insulin regimen. Will need to adjust Insulin dose once steroid dose is changed. Above discussed with pt. Pt to follow up in the office and call me at [phone] with any questions about Insulin dosing Will need to teach patient to self monitor blood glucose and self inject insulin. Renal Insufficiency: s/p Biopsy Anemia Lower extremity ulcer
--- NOTE | 2017-04-25 12:47 | DS ---
Physical Exam: SUBJECTIVE: Patient seen and examined OBJECTIVE: Vital Signs Period Temp Pulse Resp BP Sys/Horn Pulse Ox Last 24 Hr 97.5 F-98.7 F 50-82 16-20 130-151/58-75 97 PHYSICAL EXAM GENERAL: The patient is awake, alert, and fully oriented, in no acute distress. HEAD: Normal with no signs of trauma. LUNGS: Breath sounds equal, clear to auscultation bilaterally, no wheezes, no crackles, no accessory muscle use. HEART: Regular rate and rhythm, S1, S2 without murmur, rub or gallop. ABDOMEN: Soft, nontender, nondistended, normoactive bowel sounds, no guarding, no rebound UPPER EXTREMITIES: 2+ pulses, warm, well-perfused, no edema. LOWER EXTREMITIES: large non-healing ulcer medial aspect right leg, smaller ulcers left leg; 1-2+ bilateral edema NEUROLOGICAL: Cranial nerves II through XII grossly intact. Normal speech PSYCH: Normal mood, normal affect. LABS Laboratory Results - last 24 hr 04/24/17 04/24/17 04/25/17 17:13 21:36 05:35 Sodium 142 Potassium 4.5 Chloride 111 H Carbon Dioxide 23 Anion Gap 8 BUN 62 H Creatinine 2.2 H POC Glucometer 234 168 Random Glucose 130 H Calcium 8.0 L 04/25/17 04/25/17 06:25 11:35 Sodium Potassium Chloride Carbon Dioxide Anion Gap BUN Creatinine POC Glucometer 140 183 Random Glucose Calcium HOSPITAL COURSE: Date of Admission:04/09/17 Date of Discharge: 04/26/17 87 year-old female with a PMH significant for HTN, chronic venous stasis lower extremity ulcers, polymyaglia rheumatica, and hypothyroidism, admitted on for bilateral lower extremity cellulitis and MYRTLE. Hospital course complicated by new onset of hemoptysis with multfocal consolidative opacities, possible glomerulonephritis (hematura, proteineuria with hyaline and granular casts) and progressive elevation of creatinine. Renal biopsy performed 04/22. Diagnosed with microscopic polyangitis. First Rituximab treatment today. 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 --first dose Rituximab today based on the [facility] protocol (375 mg/m2 once per week for 4 doses) --continue prednisone PO 40mg BID for now B/l lower extremity cellulitis with chronic lower extremity ulcers - stable off antibiotics Elevated troponin --troponin 0.11-->0.08, likely demand, do not suspect primary [place] --Echo: normal LV; moderate BLAE --continue to hold ASA, will discuss with cardiology need for ongoing daily ASA --stress as outpatient Chronic diastolic heart failure --overall euvolemic MYRTLE on CKD --04/12 renal/bladder: evidence of chronic medical disease --baseline Cr 0.9, Cr 2.0 today --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 Full code. Minutes to complete discharge: 35 Discharge Summary Reason For Visit: CELLULITIS Current Active Problems Acute hypoxemic respiratory failure (Acute) Acute kidney injury (Acute) Bilateral pulmonary infiltrates on chest x-ray (Acute) Elevated troponin (Acute) Goodpasture syndrome (Acute) Hemoptysis (Acute) Hypertension (Acute) Hypothyroid (Acute) Sinus bradycardia (Acute) Vasculitis (Acute) Venous stasis of both lower extremities (Acute) Venous ulcer of right lower extremity with varicose veins (Acute) - Instructions Diet, Activity, Other Instructions: Two prescriptions have been sent to your pharmacy. One is for prednisone and the other is for hydralazine which is a blood pressure medication. Take these medications as directed. Arrangments have been made for your to return to the infusion center on the 7th floor of the hospital for you to start IV therapy for your vasculitis. You should follow up with Drs. Hamilton and Carlene within 1 week of your discharge. Their contact information is enclosed in this discharge packet. Return to the emergency department for any new or worsening symptoms. Referrals: Kole Concepcion MD [Staff Physician] - 1 Week Jennifer Hamilton MD [Staff Physician] - 1 Week - Home Medications Comprehensive Discharge Medication List: Ambulatory Orders Levothyroxine [Synthroid -] 100 mcg PO DAILY 03/23/14 This patient is new to me today: No Emergency Visit: Yes ED Registration Date: 04/09/17 Care time: The patient presented to the Emergency Department on the above date and was hospitalized for further evaluation of their emergent condition. Critical Care patient: No - Discharge Referral Referred to [facility] No
[2017-04-25] MEDS: GENTAMICIN SO4 0.1% TOPICAL OINTMENT 15 GM/TUBE TUBE TP SCH (13:57)
--- NOTE | 2017-04-25 16:09 | PN ---
Teaching Attending Note Name of Resident: Leighann Domínguez (Nephrology) ATTENDING PHYSICIAN STATEMENT I saw and evaluated the patient. I reviewed the resident's note and discussed the case with the resident. I agree with the resident's findings and plan as documented. Renal Follow UP Pt seen and examined at bedside. She is awake and alert. She denies shortness of breath. Current Medications Generic Name Dose Route Start Last Admin Trade Name Freq PRN Reason Stop Dose Admin Collagenase 1 applic 04/10/17 10:00 04/25/17 12:01 Santyl - TP Not Given DAILY [facility] Gentamicin Sulfate 1 applic 04/16/17 10:00 04/25/17 13:57 Garamycin 0.1% Ointment - TP 1 applic DAILY [facility] Administration Heparin Sodium (Porcine) 5,000 unit 04/23/17 14:00 04/25/17 13:57 Heparin - SQ 5,000 unit TID [facility] Administration Hydralazine HCl 25 mg 04/23/17 22:00 04/25/17 09:46 Apresoline - PO 25 mg BID [facility] Administration Rituximab 500 mg/ Rituximab 365.5 mls @ 50 mls/hr 04/25/17 10:30 04/25/17 14:41 231 mg/ Dextrose IVPB 04/25/17 17:48 Not Given ONCE ONE Insulin Aspart 1 vial 04/24/17 07:00 04/25/17 11:53 Novolog Vial Sliding Scale - SQ 6 units TIDAC [facility] Administration Protocol Insulin Aspart 1 vial 04/23/17 22:00 04/24/17 21:38 Novolog Vial Sliding Scale - SQ Not Given HS [facility] Protocol Insulin Detemir 8 units 04/19/17 10:00 04/25/17 06:28 Levemir Vial SQ 8 units BID@0700,2200 [facility] Administration Levothyroxine Sodium 100 mcg 04/18/17 07:00 04/25/17 06:28 Synthroid - PO 100 mcg DAILY@0700 [facility] Administration Multivitamins/Minerals/Vitamin C 1 tab 04/23/17 10:00 04/25/17 09:45 Tab-A-Vit - PO 1 tab DAILY [facility] Administration Polyethylene Glycol 17 gm 04/10/17 10:00 04/25/17 11:59 Miralax (For Daily Use) - PO Not Given DAILY [facility] Prednisone 40 mg 04/17/17 18:30 04/25/17 09:46 Deltasone - PO 40 mg BID [facility] Administration Valacyclovir HCl 500 mg 04/15/17 22:00 04/25/17 09:46 Valtrex - PO 500 mg BID [facility] Administration Last Vital Signs Temp Pulse Resp BP Pulse Ox 97.7 F 61 18 148/64 96 04/25/17 13:47 04/25/17 13:47 04/25/17 13:47 04/25/17 13:47 04/25/17 10:00 cardio s1s2 reg pulm clear GI soft bs positive ext trace edema neuro awake and alert Impression 1. MYRTLE 2. lower extremity ulcer 3. hypothyroid 4. HTN 5. polymyalgia 6. anemia 7. vasculitis Plan - pt is to start rituximab, she will get first dose likely tomorrow - rheum input appreciated - monitor renal function - will follow pt - discussed with medical team - cardiology follow up for aspirin Problem List - Problems (1) Acute kidney injury Code(s): N17.9 - ACUTE KIDNEY FAILURE, UNSPECIFIED (2) Cellulitis Code(s): L03.90 - CELLULITIS, UNSPECIFIED Qualifiers: Qualified Code(s): L03.119 - Cellulitis of unspecified part of limb; L03.119 - Cellulitis of unspecified part of limb (3) Hypothyroid Code(s): E03.9 - HYPOTHYROIDISM, UNSPECIFIED (4) Venous stasis of both lower extremities Code(s): I87.8 - OTHER SPECIFIED DISORDERS OF VEINS
--- NOTE | 2017-04-25 21:10 | PN ---
Progress Note (short form) - Note Progress Note: Patient seen and examined Feels better AFVSS Cor: RSR, No murmurs, No gallops Lungs: Clear to P&A Abd: Soft, Normal bowel sounds, No organomegaly Ext:No significant edema Abnormal Lab Results 04/25/17 05:35 Chloride 111 H BUN 62 H Creatinine 2.2 H Random Glucose 130 H Calcium 8.0 L Home Medication List Medication Instructions Recorded Confirmed Type Levothyroxine [Synthroid -] 100 mcg PO DAILY 03/23/14 04/09/17 History Active Medications Generic Name Dose Route Start Last Admin Trade Name Freq PRN Reason Stop Dose Admin Acetaminophen 1,000 mg 04/26/17 10:00 Tylenol - PO 04/26/17 10:01 ONCE ONE Collagenase 1 applic 04/10/17 10:00 04/25/17 12:01 Santyl - TP Not Given DAILY [facility] Diphenhydramine HCl 25 mg 04/26/17 10:00 Benadryl - PO 04/26/17 10:01 ONCE ONE Gentamicin Sulfate 1 applic 04/16/17 10:00 04/25/17 13:57 Garamycin 0.1% Ointment - TP 1 applic DAILY [facility] Administration Heparin Sodium (Porcine) 5,000 unit 04/23/17 14:00 04/25/17 13:57 Heparin - SQ 5,000 unit TID [facility] Administration Hydralazine HCl 25 mg 04/23/17 22:00 04/25/17 09:46 Apresoline - PO 25 mg BID [facility] Administration Rituximab 500 mg/ Rituximab 365.5 mls @ 50 mls/hr 04/26/17 10:30 231 mg/ Dextrose IVPB 04/26/17 17:48 ONCE ONE Insulin Aspart 1 vial 04/24/17 07:00 04/25/17 17:14 Novolog Vial Sliding Scale - SQ 8 units TIDAC [facility] Administration Protocol Insulin Aspart 1 vial 04/23/17 22:00 04/24/17 21:38 Novolog Vial Sliding Scale - SQ Not Given HS [facility] Protocol Insulin Detemir 8 units 04/19/17 10:00 04/25/17 06:28 Levemir Vial SQ 8 units BID@0700,2200 [facility] Administration Levothyroxine Sodium 100 mcg 04/18/17 07:00 04/25/17 06:28 Synthroid - PO 100 mcg DAILY@0700 [facility] Administration Methylprednisolone Sodium Succinate 100 mg 04/26/17 10:00 Solu-Medrol - IVPB 04/26/17 10:01 ONCE ONE Multivitamins/Minerals/Vitamin C 1 tab 04/23/17 10:00 04/25/17 09:45 Tab-A-Vit - PO 1 tab DAILY [facility] Administration Polyethylene Glycol 17 gm 04/10/17 10:00 04/25/17 11:59 Miralax (For Daily Use) - PO Not Given DAILY [facility] Prednisone 40 mg 04/17/17 18:30 04/25/17 09:46 Deltasone - PO 40 mg BID [facility] Administration Valacyclovir HCl 500 mg 04/15/17 22:00 04/25/17 09:46 Valtrex - PO 500 mg BID [facility] Administration a/p 77 y/o patient with microscopic polyangiitis, awaiting confirmatory kidney biopsy on saturday clinically improved on steroids to get rituxan
[2017-04-26] MEDS: HEPARIN NA (PORCINE) 5,000 UNITS/ML 1ML VIAL SQ SCH ×3 (06:18→22:15)
[2017-04-26] MEDS: INSULIN DETEMIR 100 UNITS/ML MDV SQ SCH ×2 (06:19→22:17)
[2017-04-26] MEDS: LEVOTHYROXINE NA 100 MCG TABLET (FP) PO SCH (06:20)
[2017-04-26] MEDS: INSULIN SLIDING SCALE (NOVOLOG) 1 VIAL SQ SCH ×4 (06:20→22:18)
[2017-04-26] MEDS ORDERED: PT OWN MED DRAWER 7, Y5N ONE (09:55)
[2017-04-26] MEDS ORDERED: diphenhydrAMINE HCL 25 MG CAPSULE (FP) PO ONE (10:00)
[2017-04-26] MEDS ORDERED: methylPREDNISolone NA SUCC 125 MG/2 ML VIAL IVPB ONE (10:00)
[2017-04-26] MEDS ORDERED: ACETAMINOPHEN 500 MG TABLET (FP) PO ONE (10:00)
--- NOTE | 2017-04-26 10:00 | PN ---
Physical Exam: SUBJECTIVE: Patient seen and examined OBJECTIVE: Vital Signs Period Temp Pulse Resp BP Sys/Horn Pulse Ox Last 24 Hr 97.6 F-98 F 53-61 18-20 144-181/55-76 97 GENERAL: The patient is awake, alert, and fully oriented, in no acute distress. HEAD: Normal with no signs of trauma. EYES: PERRL, extraocular movements intact, sclera anicteric, conjunctiva clear. No ptosis. ENT: Ears normal, nares patent, oropharynx clear without exudates, moist mucous membranes. NECK: Trachea midline, full range of motion, supple. LUNGS: Breath sounds equal, clear to auscultation bilaterally, no wheezes, no crackles, no accessory muscle use. HEART: Regular rate and rhythm, S1, S2 without murmur, rub or gallop. ABDOMEN: Soft, nontender, nondistended, normoactive bowel sounds, no guarding, no rebound, no hepatosplenomegaly, no masses. EXTREMITIES: 2+ pulses, warm, well-perfused, no edema. NEUROLOGICAL: Cranial nerves II through XII grossly intact. Normal speech, gait not observed. PSYCH: Normal mood, normal affect. SKIN: Warm, dry, normal turgor, no rashes or lesions noted Laboratory Results - last 24 hr 04/25/17 04/25/17 04/25/17 11:35 16:56 22:01 POC Glucometer 183 227 146 04/26/17 06:17 POC Glucometer 140 Active Medications Generic Name Dose Route Start Last Admin Trade Name Freq PRN Reason Stop Dose Admin Acetaminophen 1,000 mg 04/26/17 10:00 Tylenol - PO 04/26/17 10:01 ONCE ONE Collagenase 1 applic 04/10/17 10:00 04/25/17 12:01 Santyl - TP Not Given DAILY [facility] Diphenhydramine HCl 25 mg 04/26/17 10:00 Benadryl - PO 04/26/17 10:01 ONCE ONE Gentamicin Sulfate 1 applic 04/16/17 10:00 04/25/17 13:57 Garamycin 0.1% Ointment - TP 1 applic DAILY [facility] Administration Heparin Sodium (Porcine) 5,000 unit 04/23/17 14:00 04/26/17 06:18 Heparin - SQ 5,000 unit TID [facility] Administration Hydralazine HCl 25 mg 04/23/17 22:00 04/25/17 22:04 Apresoline - PO 25 mg BID [facility] Administration Rituximab 500 mg/ Rituximab 365.5 mls @ 50 mls/hr 04/26/17 10:30 231 mg/ Dextrose IVPB 04/26/17 17:48 ONCE ONE Insulin Aspart 1 vial 04/24/17 07:00 04/26/17 06:20 Novolog Vial Sliding Scale - SQ Not Given TIDAC [facility] Protocol Insulin Aspart 1 vial 04/23/17 22:00 04/25/17 22:07 Novolog Vial Sliding Scale - SQ Not Given HS [facility] Protocol Insulin Detemir 8 units 04/19/17 10:00 04/26/17 06:19 Levemir Vial SQ 8 units BID@0700,2200 [facility] Administration Levothyroxine Sodium 100 mcg 04/18/17 07:00 04/26/17 06:20 Synthroid - PO 100 mcg DAILY@0700 [facility] Administration Methylprednisolone Sodium Succinate 100 mg 04/26/17 10:00 Solu-Medrol - IVPB 04/26/17 10:01 ONCE ONE Multivitamins/Minerals/Vitamin C 1 tab 04/23/17 10:00 04/25/17 09:45 Tab-A-Vit - PO 1 tab DAILY [facility] Administration Polyethylene Glycol 17 gm 04/10/17 10:00 04/25/17 11:59 Miralax (For Daily Use) - PO Not Given DAILY [facility] Prednisone 40 mg 04/17/17 18:30 04/25/17 22:04 Deltasone - PO 40 mg BID [facility] Administration Valacyclovir HCl 500 mg 04/15/17 22:00 04/25/17 22:04 Valtrex - PO 500 mg BID [facility] Administration ASSESSMENT/PLAN: 87 year-old female with a PMH significant for HTN, chronic venous stasis lower extremity ulcers, polymyaglia rheumatica, and hypothyroidism, admitted on for bilateral lower extremity cellulitis and MYRTLE. Hospital course complicated by new onset of hemoptysis with multfocal consolidative opacities, possible glomerulonephritis (hematura, proteineuria with hyaline and granular casts) and progressive elevation of creatinine. Renal biopsy performed 04/22. Diagnosed with microscopic polyangitis. To start Rituximab treatment today or tomorrow. 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 --to start Rituximab based on the [facility] protocol (375 mg/m2 once per week for 4 doses) --continue prednisone PO 40mg BID for now B/l lower extremity cellulitis with chronic lower extremity ulcers - stable off antibiotics Elevated troponin --troponin 0.11-->0.08, likely demand, do not suspect primary [place] --Echo: normal LV; moderate BLAE --continue to hold ASA, will discuss with cardiology need for ongoing daily ASA --stress as outpatient Chronic diastolic heart failure --overall euvolemic MYRTLE on CKD --04/12 renal/bladder: evidence of chronic medical disease --baseline Cr 0.9, Cr 2.0 today --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 Full code. Visit type - Emergency Visit Emergency Visit: Yes ED Registration Date: 04/09/17 Care time: The patient presented to the Emergency Department on the above date and was hospitalized for further evaluation of their emergent condition. - New Patient This patient is new to me today: No - Critical Care Critical Care patient: No
[2017-04-26] MEDS: hydrALAZINE HCL 10 MG TABLET PO SCH ×2 (10:04→22:16)
[2017-04-26] MEDS: predniSONE 20 MG TABLET (UD) PO SCH ×2 (10:06→22:15)
[2017-04-26] MEDS: MULTIVITAMINS (DAILY MVI) TABLET (FP) PO SCH (10:06)
[2017-04-26] MEDS: valACYclovir HCL 500 MG TABLET (FP) PO SCH ×2 (10:07→22:16)
[2017-04-26] MEDS: COLLAGENASE CLOSTRIDIUM HIST. 30 GRAMS TUBE TP SCH ×2 (10:07→12:24)
[2017-04-26] MEDS: POLYETHYLENE GLYCOL 3350 119 GM BTL PO SCH (10:08)
[2017-04-26] MEDS ORDERED: RITUXIMAB IVPB ONE (10:30)
[2017-04-26] MEDS ORDERED: DEXTROSE 5% IVPB ONE (10:30)
[2017-04-26] MEDS ORDERED: WATER IVPB ONE (10:30)
[2017-04-26] MEDS ORDERED: INSULIN (NOVOLOG) ASPART 100 UNITS/ML 10ML VIAL ONE ×3 (11:17→17:31)
--- NOTE | 2017-04-26 11:29 | PN ---
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
--- NOTE | 2017-04-26 14:21 | PN ---
Progress Note, Physician History of Present Illness: Pt seen and examined at bedside. She is awake and alert. She is getting the infusion now. She denies shortness of breath. - Current Medication List Current Medications: Active Medications Collagenase (Santyl -) 1 applic TP DAILY [facility] Last Admin: 04/26/17 10:07 Dose: 1 applic Gentamicin Sulfate (Garamycin 0.1% Ointment -) 1 applic TP DAILY [facility] Last Admin: 04/25/17 13:57 Dose: 1 applic Heparin Sodium (Porcine) (Heparin -) 5,000 unit SQ TID [facility] Last Admin: 04/26/17 06:18 Dose: 5,000 unit Hydralazine HCl (Apresoline -) 25 mg PO BID [facility] Last Admin: 04/26/17 10:04 Dose: 25 mg Rituximab 500 mg/ Rituximab (231 mg/ Dextrose) 365.5 mls @ 50 mls/hr IVPB ONCE ONE Stop: 04/26/17 17:48 Last Admin: 04/26/17 12:19 Dose: 50 mls/hr Insulin Aspart (Novolog Vial Sliding Scale -) 1 vial SQ TIDAC [facility] PRN Reason: Protocol Last Admin: 04/26/17 11:23 Dose: 8 units Insulin Aspart (Novolog Vial Sliding Scale -) 1 vial SQ HS [facility] PRN Reason: Protocol Last Admin: 04/25/17 22:07 Dose: Not Given Insulin Detemir (Levemir Vial) 8 units SQ BID@0700,2200 [facility] Last Admin: 04/26/17 06:19 Dose: 8 units Levothyroxine Sodium (Synthroid -) 100 mcg PO DAILY@0700 [facility] Last Admin: 04/26/17 06:20 Dose: 100 mcg Multivitamins/Minerals/Vitamin C (Tab-A-Vit -) 1 tab PO DAILY [facility] Last Admin: 04/26/17 10:06 Dose: 1 tab Polyethylene Glycol (Miralax (For Daily Use) -) 17 gm PO DAILY [facility] Last Admin: 04/26/17 10:08 Dose: Not Given Prednisone (Deltasone -) 40 mg PO BID [facility] Last Admin: 04/26/17 10:06 Dose: 40 mg Valacyclovir HCl (Valtrex -) 500 mg PO BID [facility] Last Admin: 04/26/17 10:07 Dose: 500 mg - Objective Vital Signs: Vital Signs Temperature 98.2 F 04/26/17 13:47 Pulse Rate 55 L 04/26/17 13:47 Respiratory Rate 18 04/26/17 13:47 Blood Pressure 137/73 04/26/17 13:47 O2 Sat by Pulse Oximetry (%) 97 04/25/17 21:00 Constitutional: Yes: Calm Eyes: Yes: Conjunctiva Clear HENT: Yes: Atraumatic Neck: Yes: Supple Cardiovascular: Yes: S1, S2 Respiratory: Yes: CTA Bilaterally Gastrointestinal: Yes: Soft Genitourinary: Yes: WNL Musculoskeletal: Yes: WNL Edema: Yes Edema: LUE: Trace, LLE: 1+ Neurological: Yes: Oriented Psychiatric: Yes: Oriented Labs: CBC, BMP 04/24/17 05:35 04/25/17 05:35 INR, PTT INR 1.10 (0.82-1.09) 04/22/17 06:00 Fibrinogen 249.0 mg/dL (238-498) D 04/22/17 06:00 Problem List - Problems (1) Acute kidney injury Code(s): N17.9 - ACUTE KIDNEY FAILURE, UNSPECIFIED (2) Cellulitis Code(s): L03.90 - CELLULITIS, UNSPECIFIED Qualifiers: Site of cellulitis: extremity Site of cellulitis of extremity: lower extremity Laterality: unspecified laterality Qualified Code(s): L03.119 - Cellulitis of unspecified part of limb; L03.119 - Cellulitis of unspecified part of limb (3) Hypothyroid Code(s): E03.9 - HYPOTHYROIDISM, UNSPECIFIED (4) Venous stasis of both lower extremities Code(s): I87.8 - OTHER SPECIFIED DISORDERS OF VEINS Assessment/Plan Current Medications Generic Name Dose Route Start Last Admin Trade Name Freq PRN Reason Stop Dose Admin Collagenase 1 applic 04/10/17 10:00 04/26/17 10:07 Santyl - TP 1 applic DAILY [facility] Administration Gentamicin Sulfate 1 applic 04/16/17 10:00 04/25/17 13:57 Garamycin 0.1% Ointment - TP 1 applic DAILY [facility] Administration Heparin Sodium (Porcine) 5,000 unit 04/23/17 14:00 04/26/17 06:18 Heparin - SQ 5,000 unit TID [facility] Administration Hydralazine HCl 25 mg 04/23/17 22:00 04/26/17 10:04 Apresoline - PO 25 mg BID [facility] Administration Rituximab 500 mg/ Rituximab 365.5 mls @ 50 mls/hr 04/26/17 10:30 04/26/17 12:19 231 mg/ Dextrose IVPB 04/26/17 17:48 50 mls/hr ONCE ONE Administration Insulin Aspart 1 vial 04/24/17 07:00 04/26/17 11:23 Novolog Vial Sliding Scale - SQ 8 units TIDAC [facility] Administration Protocol Insulin Aspart 1 vial 04/23/17 22:00 04/25/17 22:07 Novolog Vial Sliding Scale - SQ Not Given HS [facility] Protocol Insulin Detemir 8 units 04/19/17 10:00 04/26/17 06:19 Levemir Vial SQ 8 units BID@0700,2200 [facility] Administration Levothyroxine Sodium 100 mcg 04/18/17 07:00 04/26/17 06:20 Synthroid - PO 100 mcg DAILY@0700 [facility] Administration Multivitamins/Minerals/Vitamin C 1 tab 04/23/17 10:00 04/26/17 10:06 Tab-A-Vit - PO 1 tab DAILY [facility] Administration Polyethylene Glycol 17 gm 04/10/17 10:00 04/26/17 10:08 Miralax (For Daily Use) - PO Not Given DAILY [facility] Prednisone 40 mg 04/17/17 18:30 04/26/17 10:06 Deltasone - PO 40 mg BID [facility] Administration Valacyclovir HCl 500 mg 04/15/17 22:00 04/26/17 10:07 Valtrex - PO 500 mg BID [facility] Administration Impression 1. MYRTLE 2. lower extremity ulcer 3. hypothyroid 4. HTN 5. polymyalgia 6. anemia 7. vasculitis microscopic polyangitis Plan - pt recieving rituximab - will need rheum follow up after discharge - check lower extremity doppler - discussed with medical team - cont valtrex, discussed with ID - cardiology follow up, pt remains off of aspirin Dr Hamilton
[2017-04-26] MEDS: GENTAMICIN SO4 0.1% TOPICAL OINTMENT 15 GM/TUBE TUBE TP SCH (14:54)
--- NOTE | 2017-04-26 16:22 | PN ---
Progress Note (short form) - Note Progress Note: Patient seen and examined She feels well. s/p rituxan today General: NAD HEENT: No scleral icterus, no LAD Lungs: CTA b/l ABdomen: soft LE: +bilateral ulcers in dressing.( as per RN, much improved than before) Last Vital Signs Temp Pulse Resp BP Pulse Ox 98.2 F 60 18 142/77 97 04/26/17 13:47 04/26/17 15:57 04/26/17 15:57 04/26/17 15:57 04/25/17 21:00 CBC, BMP 04/24/17 05:35 04/25/17 05:35 Current Medications Generic Name Dose Route Start Last Admin Trade Name Freq PRN Reason Stop Dose Admin Collagenase 1 applic 04/10/17 10:00 04/26/17 10:07 Santyl - TP 1 applic DAILY [facility] Administration Gentamicin Sulfate 1 applic 04/16/17 10:00 04/26/17 14:54 Garamycin 0.1% Ointment - TP 1 applic DAILY [facility] Administration Heparin Sodium (Porcine) 5,000 unit 04/23/17 14:00 04/26/17 14:54 Heparin - SQ 5,000 unit TID [facility] Administration Hydralazine HCl 25 mg 04/23/17 22:00 04/26/17 10:04 Apresoline - PO 25 mg BID [facility] Administration Rituximab 500 mg/ Rituximab 365.5 mls @ 50 mls/hr 04/26/17 10:30 04/26/17 12:19 231 mg/ Dextrose IVPB 04/26/17 17:48 50 mls/hr ONCE ONE Administration Insulin Aspart 1 vial 04/24/17 07:00 04/26/17 11:23 Novolog Vial Sliding Scale - SQ 8 units TIDAC [facility] Administration Protocol Insulin Aspart 1 vial 04/23/17 22:00 04/25/17 22:07 Novolog Vial Sliding Scale - SQ Not Given HS [facility] Protocol Insulin Detemir 8 units 04/19/17 10:00 04/26/17 06:19 Levemir Vial SQ 8 units BID@0700,2200 [facility] Administration Levothyroxine Sodium 100 mcg 04/18/17 07:00 04/26/17 06:20 Synthroid - PO 100 mcg DAILY@0700 [facility] Administration Multivitamins/Minerals/Vitamin C 1 tab 04/23/17 10:00 04/26/17 10:06 Tab-A-Vit - PO 1 tab DAILY [facility] Administration Polyethylene Glycol 17 gm 04/10/17 10:00 04/26/17 10:08 Miralax (For Daily Use) - PO Not Given DAILY [facility] Prednisone 40 mg 04/17/17 18:30 04/26/17 10:06 Deltasone - PO 40 mg BID [facility] Administration Valacyclovir HCl 500 mg 04/15/17 22:00 04/26/17 10:07 Valtrex - PO 500 mg BID [facility] Administration Assessment/Plan: with new diagnosis of vasculitis microscopic polyangitis (renal/Pulm), anemia of inflammation. -tranfuse prn, monitor crit -on steroids -s/p rituxan today, tolerated well. Monitor for an hr post. -f/u with renal/Rheum as an OP upon d/c
--- NOTE | 2017-04-26 16:28 | PN ---
Progress Note (short form) - Note Progress Note: Feels good denies any complaints Blood sugar acceptable Vital Signs Period Temp Pulse Resp BP Sys/Horn Pulse Ox Last 24 Hr 97.6 F-98.2 F 50-72 16-20 137-181/55-77 97 PE: AO3 NecK: Supple, No JVD HEENT: PERRL, EOMI Lungs: CTA CVS: S1S2 Abd: Benign Ext:+ edema, Dressing both legs Neuro: No focal deficit CMP Sodium 142 mmol/L (136-145) 04/25/17 05:35 Potassium 4.5 mmol/L (3.5-5.1) 04/25/17 05:35 Chloride 111 mmol/L (98-107) H 04/25/17 05:35 Carbon Dioxide 23 mmol/L (21-32) 04/25/17 05:35 Anion Gap 8 (8-16) 04/25/17 05:35 BUN 62 mg/dL (7-18) H 04/25/17 05:35 Creatinine 2.2 mg/dL (0.55-1.02) H 04/25/17 05:35 Creat Clearance w eGFR 21.70 (>60) 04/20/17 06:00 POC Glucometer 215 UNITS (()) 04/26/17 11:11 Random Glucose 130 mg/dL (74-106) H 04/25/17 05:35 Hemoglobin A1c % 6.8 % (4.8-6.0) H 04/23/17 05:30 Lactic Acid 0.9 mmol/L (0.4-2.0) 04/12/17 18:30 Calcium 8.0 mg/dL (8.5-10.1) L 04/25/17 05:35 Phosphorus 3.9 mg/dL (2.5-4.9) 04/24/17 05:35 Magnesium 2.3 mg/dL (1.8-2.4) 04/24/17 05:35 Iron 13 ug/dL (27-139) L 04/12/17 14:10 TIBC 163 ug/dL (250-450) L 04/12/17 14:10 Iron Saturation 8 % (15-55) L 04/12/17 14:10 Transferrin 127 mg/dL (200-370) L 04/12/17 14:10 Ferritin Cancelled 04/12/17 14:10 Total Bilirubin 0.4 mg/dL (0.2-1.0) 04/20/17 06:00 AST 8 U/L (15-37) L D 04/20/17 06:00 ALT 20 U/L (12-78) 04/20/17 06:00 Alkaline Phosphatase 60 U/L (45-117) 04/20/17 06:00 LD Total 201 U/L (84-246) 04/13/17 06:15 Creatine Kinase 95 IU/L (26-192) 04/10/17 06:10 Creatine Kinase Index 0.5 % (0.0-5.0) 04/09/17 14:23 CK-MB (CK-2) 1.031 ng/mL (0.5-3.6) 04/09/17 14:23 Troponin I 0.08 ng/ml (0.00-0.05) H 04/10/17 06:10 C-Reactive Protein 10.0 MG/DL (0.00-0.3) H 04/11/17 07:00 Prot Electrophoresis (.) 04/17/17 06:20 Serum Total Protein 5.9 g/dL (6.0-8.5) L 04/17/17 06:20 Total Protein 5.6 g/dl (6.4-8.2) L 04/20/17 06:00 Albumin 2.3 g/dl (3.4-5.0) L 04/20/17 06:00 Globulin 3.3 g/dL (2.2-3.9) 04/17/17 06:20 Albumin/Globulin Ratio 0.8 (0.7-1.7) 04/17/17 06:20 Ektwh-4-Snerbhnts 0.4 gm/dL (0.0-0.4) 04/17/17 06:20 Jzvhu-1-Czasvedgq (%) 4.2 % (.) 04/17/17 18:00 Mnnma-6-Nwrxrzshd 1.0 gm/dL (0.4-1.0) 04/17/17 06:20 Ayksd-3-Qgulfveaa (%) 12.6 % (.) 04/17/17 18:00 Beta Globulins 0.9 gm/dL (0.7-1.3) 04/17/17 06:20 Beta Globulins (%) 12.8 % (.) 04/17/17 18:00 Gamma Globulins 0.9 gm/dL (0.4-1.8) 04/17/17 06:20 Gamma Globulins (%) 10.5 % (.) 04/17/17 18:00 M-Kuldip % Not observed % (Not Observed) 04/17/17 18:00 Triglycerides 133 mg/dL (35-160) 04/11/17 06:00 Cholesterol 136 mg/dL (50-200) 04/11/17 06:00 Total LDL Cholesterol 79 mg/dL (5-100) 04/11/17 06:00 HDL Cholesterol 31 mg/dL (40-60) L 04/11/17 06:00 Angiotensin Convert Enz 54 U/L (14-82) 04/16/17 15:30 TSH 1.91 uIU/ml (0.358-3.74) D 04/17/17 06:20 Free T4 1.93 ng/dl (0.76-1.46) H D 04/17/17 06:20 Free T3 1.7 pg/ml (2.0-4.4) L 04/11/17 11:03 Current Medications Generic Name Dose Route Start Last Admin Trade Name Byron PRN Reason Stop Dose Admin Collagenase 1 applic 04/10/17 10:00 04/26/17 10:07 Santyl - TP 1 applic DAILY [facility] Administration Gentamicin Sulfate 1 applic 04/16/17 10:00 04/26/17 14:54 Garamycin 0.1% Ointment - TP 1 applic DAILY [facility] Administration Heparin Sodium (Porcine) 5,000 unit 04/23/17 14:00 04/26/17 14:54 Heparin - SQ 5,000 unit TID [facility] Administration Hydralazine HCl 25 mg 04/23/17 22:00 04/26/17 10:04 Apresoline - PO 25 mg BID [facility] Administration Rituximab 500 mg/ Rituximab 365.5 mls @ 50 mls/hr 04/26/17 10:30 04/26/17 12:19 231 mg/ Dextrose IVPB 04/26/17 17:48 50 mls/hr ONCE ONE Administration Insulin Aspart 1 vial 04/24/17 07:00 04/26/17 11:23 Novolog Vial Sliding Scale - SQ 8 units TIDAC [facility] Administration Protocol Insulin Aspart 1 vial 04/23/17 22:00 04/25/17 22:07 Novolog Vial Sliding Scale - SQ Not Given HS [facility] Protocol Insulin Detemir 8 units 04/19/17 10:00 04/26/17 06:19 Levemir Vial SQ 8 units BID@0700,2200 [facility] Administration Levothyroxine Sodium 100 mcg 04/18/17 07:00 04/26/17 06:20 Synthroid - PO 100 mcg DAILY@0700 [facility] Administration Multivitamins/Minerals/Vitamin C 1 tab 04/23/17 10:00 04/26/17 10:06 Tab-A-Vit - PO 1 tab DAILY [facility] Administration Polyethylene Glycol 17 gm 04/10/17 10:00 04/26/17 10:08 Miralax (For Daily Use) - PO Not Given DAILY [facility] Prednisone 40 mg 04/17/17 18:30 04/26/17 10:06 Deltasone - PO 40 mg BID [facility] Administration Valacyclovir HCl 500 mg 04/15/17 22:00 04/26/17 10:07 Valtrex - PO 500 mg BID [facility] Administration AP: Hypothyroidism: Normalization of TSH with slightly high FT4 of 1.93 Earlier high TSH secondary to missing doses for few days Continue LT4 to 100mcG QD Hyperglycemia sec to steroid: A1c 6.8 now Monitor BGM with Novolog Coverage as necessary Levemir 8 units BID Blood sugar better on current Insulin regimen. Will need to adjust Insulin dose once steroid dose is changed. Above discussed with pt. Pt to follow up in the office and call me at [phone] with any questions about Insulin dosing Will need to teach patient to self monitor blood glucose and self inject insulin. Pt should be sent home on current Insulin regimen Renal Insufficiency: s/p Biopsy microscopic polyangitis, on Rituximab Anemia Lower extremity ulcer
--- NOTE | 2017-04-26 17:12 | PN ---
Progress Note, Physician Chief Complaint: Pt A&Ox3; OOB in chair; received first dose of chemotherapy today. Relaxed. History of Present Illness: 87-year-old black female sent in by Dr. Silvestre for evaluation of nonhealing chronic lower extremity wounds now suggestive of cellulitis. Patient states was seen earlier this week and then again today for redness and swelling of the thumb, bilateral lower extremity wounds and swelling, now with a draining wound to the side of left ankle. Patient denies fever, chills but does state pain and redness to the area. Patient states had an ultrasound a few days ago which was negative for DVT. Patient does have history of MRSA. Patient also states history of chronic venous stasis. Pt has also been increasingly short of breath over the past 2 months; she now becomes winded with minimal exertion. Timing/Duration: getting worse Severity: moderate Associated Symptoms: reports: denies symptoms - Current Medication List Current Medications: Active Medications Collagenase (Santyl -) 1 applic TP DAILY [facility] Last Admin: 04/26/17 10:07 Dose: 1 applic Gentamicin Sulfate (Garamycin 0.1% Ointment -) 1 applic TP DAILY [facility] Last Admin: 04/26/17 14:54 Dose: 1 applic Heparin Sodium (Porcine) (Heparin -) 5,000 unit SQ TID [facility] Last Admin: 04/26/17 14:54 Dose: 5,000 unit Hydralazine HCl (Apresoline -) 25 mg PO BID [facility] Last Admin: 04/26/17 10:04 Dose: 25 mg Rituximab 500 mg/ Rituximab (231 mg/ Dextrose) 365.5 mls @ 50 mls/hr IVPB ONCE ONE Stop: 04/26/17 17:48 Last Admin: 04/26/17 12:19 Dose: 50 mls/hr Insulin Aspart (Novolog Vial Sliding Scale -) 1 vial SQ TIDAC [facility] PRN Reason: Protocol Last Admin: 04/26/17 11:23 Dose: 8 units Insulin Aspart (Novolog Vial Sliding Scale -) 1 vial SQ HS [facility] PRN Reason: Protocol Last Admin: 04/25/17 22:07 Dose: Not Given Insulin Detemir (Levemir Vial) 8 units SQ BID@0700,2200 [facility] Last Admin: 04/26/17 06:19 Dose: 8 units Levothyroxine Sodium (Synthroid -) 100 mcg PO DAILY@0700 [facility] Last Admin: 04/26/17 06:20 Dose: 100 mcg Multivitamins/Minerals/Vitamin C (Tab-A-Vit -) 1 tab PO DAILY [facility] Last Admin: 04/26/17 10:06 Dose: 1 tab Polyethylene Glycol (Miralax (For Daily Use) -) 17 gm PO DAILY [facility] Last Admin: 04/26/17 10:08 Dose: Not Given Prednisone (Deltasone -) 40 mg PO BID [facility] Last Admin: 04/26/17 10:06 Dose: 40 mg Valacyclovir HCl (Valtrex -) 500 mg PO BID [facility] Last Admin: 04/26/17 10:07 Dose: 500 mg - Objective Vital Signs: Vital Signs Temperature 98.2 F 04/26/17 13:47 Pulse Rate 60 04/26/17 15:57 Respiratory Rate 18 04/26/17 15:57 Blood Pressure 142/77 04/26/17 15:57 O2 Sat by Pulse Oximetry (%) 97 04/25/17 21:00 Constitutional: Yes: Calm Eyes: Yes: WNL HENT: Yes: WNL Neck: Yes: WNL Cardiovascular: Yes: Regular Rate and Rhythm Respiratory: Yes: WNL Gastrointestinal: Yes: Soft ...Rectal Exam: Yes: Deferred Genitourinary: No: Anuria Breast(s): Yes: WNL Musculoskeletal: Yes: Muscle Weakness Extremities: Yes: WNL Edema: No Peripheral Pulses WNL: Yes Integumentary: Yes: WNL Neurological: Yes: WNL Psychiatric: Yes: WNL Labs: CBC, BMP 04/24/17 05:35 04/25/17 05:35 INR, PTT INR 1.10 (0.82-1.09) 04/22/17 06:00 Fibrinogen 249.0 mg/dL (238-498) D 04/22/17 06:00 Problem List - Problems (1) Acute kidney injury Assessment/Plan: increased CR, hematuria and proteinuria. Hydration. renal biopsy results noted: angiopathic process. Code(s): N17.9 - ACUTE KIDNEY FAILURE, UNSPECIFIED (2) Elevated troponin Assessment/Plan: 0.11-->0.08; normal CK. No chest pain; no acute EKG changes. ECHO: normal LVEF; moderate bilateral atrial enlargement. Sepsis (PNA), CHF, muscle breakdown may contribute to rise in TNI. Multiple cardiac risks (age; diasatoic CHF; HTN; ?lipids; sedentary). Denies prior cardiac workup. Stress MIBI when stable, if not done recently. Continue ASA 81 mg daily until coronary artery status is known. Total cholesterol 136 mg/dL; LDL cholesterol 79 mg/dL; keep < 70 mg/dL. Code(s): R74.8 - ABNORMAL LEVELS OF OTHER SERUM ENZYMES (3) Hypothyroid Assessment/Plan: TSH 19.1; free T4 now mildly elevated. Code(s): E03.9 - HYPOTHYROIDISM, UNSPECIFIED (4) Wound infection Assessment/Plan: Perianal ulcer. on Valtrex. Code(s): T14.8 - OTHER INJURY OF UNSPECIFIED BODY REGION * DO NOT USE * L08.9 - LOCAL INFECTION OF THE SKIN AND SUBCUTANEOUS TISSUE, UNSP (5) Sinus bradycardia Assessment/Plan: Improved resting heart rate ? secondary to discontinuation of several medications that may have influenced HR. Pt has now started chemotherapy. Code(s): R00.1 - BRADYCARDIA, UNSPECIFIED (6) Hypertension Assessment/Plan: If BP remains elevated, use antihypertensive medications that are not AV conduction blockers. (Now on hydralazine). Code(s): I10 - ESSENTIAL (PRIMARY) HYPERTENSION (7) Vasculitis Assessment/Plan: +P Anca; + KEELEY; + myeloperoxidase; with renal biopsy results: possible microscopic polyangiitis. Started immunosuppressive therapy. For US of lower extremities to r/o DVT. Code(s): I77.6 - ARTERITIS, UNSPECIFIED (8) Goodpasture syndrome Assessment/Plan: + ANCA, KEELEY, Complement, myeloperoxidase Ab; renal dysfunction. Code(s): M31.0 - HYPERSENSITIVITY ANGIITIS
--- NOTE | 2017-04-26 17:12 | PN ---
Progress Note, Physician Chief Complaint: Pt A&Ox3; OOB in chair; no chest pain or dyspnea. She is very anxious, however, regarding the upcoming chemotherapy (" I don't like that word; it makes me think I have cancer"; "and what do I do if I'm home and think I'm having a reaction to the chemotherapy?"). History of Present Illness: 87-year-old black female sent in by Dr. Silvestre for evaluation of nonhealing chronic lower extremity wounds now suggestive of cellulitis. Patient states was seen earlier this week and then again today for redness and swelling of the thumb, bilateral lower extremity wounds and swelling, now with a draining wound to the side of left ankle. Patient denies fever, chills but does state pain and redness to the area. Patient states had an ultrasound a few days ago which was negative for DVT. Patient does have history of MRSA. Patient also states history of chronic venous stasis. Pt has also been increasingly short of breath over the past 2 months; she now becomes winded with minimal exertion. Timing/Duration: getting worse Severity: moderate Associated Symptoms: reports: denies symptoms - Current Medication List Current Medications: Active Medications Collagenase (Santyl -) 1 applic TP DAILY [facility] Last Admin: 04/26/17 10:07 Dose: 1 applic Gentamicin Sulfate (Garamycin 0.1% Ointment -) 1 applic TP DAILY [facility] Last Admin: 04/26/17 14:54 Dose: 1 applic Heparin Sodium (Porcine) (Heparin -) 5,000 unit SQ TID [facility] Last Admin: 04/26/17 14:54 Dose: 5,000 unit Hydralazine HCl (Apresoline -) 25 mg PO BID [facility] Last Admin: 04/26/17 10:04 Dose: 25 mg Rituximab 500 mg/ Rituximab (231 mg/ Dextrose) 365.5 mls @ 50 mls/hr IVPB ONCE ONE Stop: 04/26/17 17:48 Last Admin: 04/26/17 12:19 Dose: 50 mls/hr Insulin Aspart (Novolog Vial Sliding Scale -) 1 vial SQ [facility]IDAC [facility] PRN Reason: Protocol Last Admin: 04/26/17 11:23 Dose: 8 units Insulin Aspart (Novolog Vial Sliding Scale -) 1 vial SQ HS [facility] PRN Reason: Protocol Last Admin: 04/25/17 22:07 Dose: Not Given Insulin Detemir (Levemir Vial) 8 units SQ BID@0700,2200 [facility] Last Admin: 04/26/17 06:19 Dose: 8 units Levothyroxine Sodium (Synthroid -) 100 mcg PO DAILY@0700 [facility] Last Admin: 04/26/17 06:20 Dose: 100 mcg Multivitamins/Minerals/Vitamin C (Tab-A-Vit -) 1 tab PO DAILY [facility] Last Admin: 04/26/17 10:06 Dose: 1 tab Polyethylene Glycol (Miralax (For Daily Use) -) 17 gm PO DAILY [facility] Last Admin: 04/26/17 10:08 Dose: Not Given Prednisone (Deltasone -) 40 mg PO BID [facility] Last Admin: 04/26/17 10:06 Dose: 40 mg Valacyclovir HCl (Valtrex -) 500 mg PO BID [facility] Last Admin: 04/26/17 10:07 Dose: 500 mg - Objective Vital Signs: Vital Signs Temperature 98.2 F 04/26/17 13:47 Pulse Rate 60 04/26/17 15:57 Respiratory Rate 18 04/26/17 15:57 Blood Pressure 142/77 04/26/17 15:57 O2 Sat by Pulse Oximetry (%) 97 04/25/17 21:00 Constitutional: Yes: Anxious Eyes: Yes: WNL HENT: Yes: WNL Neck: Yes: WNL Cardiovascular: Yes: Regular Rate and Rhythm Respiratory: Yes: Regular Gastrointestinal: Yes: Soft ...Rectal Exam: Yes: Deferred Genitourinary: No: Anuria Breast(s): Yes: WNL Musculoskeletal: Yes: Muscle Weakness Extremities: Yes: Cool Edema: No Peripheral Pulses WNL: Yes Integumentary: Yes: WNL Neurological: Yes: WNL Psychiatric: Yes: WNL Labs: CBC, BMP 04/24/17 05:35 04/25/17 05:35 INR, PTT INR 1.10 (0.82-1.09) 04/22/17 06:00 Fibrinogen 249.0 mg/dL (238-498) D 04/22/17 06:00 - ....Imaging Other: Image Reviewed (telemetry: NSR; HR 50s-110s bpm) Problem List - Problems (1) Acute kidney injury Assessment/Plan: increased CR, hematuria and proteinuria. Hydration. renal biopsy results noted: angiopathic process. Code(s): N17.9 - ACUTE KIDNEY FAILURE, UNSPECIFIED (2) Elevated troponin Assessment/Plan: 0.11-->0.08; normal CK. No chest pain; no acute EKG changes. ECHO: normal LVEF; moderate bilateral atrial enlargement. Sepsis (PNA), CHF, muscle breakdown may contribute to rise in TNI. Multiple cardiac risks (age; diasatoic CHF; HTN; ?lipids; sedentary). Denies prior cardiac workup. Stress MIBI when stable, if not done recently. Total cholesterol 136 mg/dL; LDL cholesterol 79 mg/dL. Code(s): R74.8 - ABNORMAL LEVELS OF OTHER SERUM ENZYMES (3) Hypothyroid Assessment/Plan: TSH 19.1; free T4 now mildly elevated. Code(s): E03.9 - HYPOTHYROIDISM, UNSPECIFIED (4) Wound infection Assessment/Plan: on Valtrex. Code(s): T14.8 - OTHER INJURY OF UNSPECIFIED BODY REGION * DO NOT USE * L08.9 - LOCAL INFECTION OF THE SKIN AND SUBCUTANEOUS TISSUE, UNSP (5) Sinus bradycardia Assessment/Plan: Improved resting heart rate; ? secondary to discontinuation of several medications that may have influenced HR. Pt for chemotherapy. Code(s): R00.1 - BRADYCARDIA, UNSPECIFIED (6) Hypertension Assessment/Plan: If BP remains elevated, use antihypertensive medications that are not AV conduction blockers. (Now on hydralazine). Code(s): I10 - ESSENTIAL (PRIMARY) HYPERTENSION (7) Vasculitis Code(s): I77.6 - ARTERITIS, UNSPECIFIED
--- NOTE | 2017-04-26 21:42 | HOSP ---
Physical Examination Vital Signs: Vital Signs Temperature 98.2 F 04/26/17 13:47 Pulse Rate 60 04/26/17 15:57 Respiratory Rate 18 04/26/17 15:57 Blood Pressure 142/77 04/26/17 15:57 O2 Sat by Pulse Oximetry (%) 97 04/25/17 21:00 Labs: CBC, BMP 04/24/17 05:35 04/25/17 05:35 Hospitalist Encounter Assessment: Received telephone call from radiologist, Dr. Ely with ultrasound results, NO DVT but + thrombus greater saphenous vein. [facility] vascular surgery, Nirmala, who recommends no anticoagulation for superficial thrombus. No anticoagulation ordered. Vascular consult ordered.
[2017-04-27] MEDS: HEPARIN NA (PORCINE) 5,000 UNITS/ML 1ML VIAL SQ SCH ×3 (06:39→21:57)
[2017-04-27] MEDS: INSULIN SLIDING SCALE (NOVOLOG) 1 VIAL SQ SCH ×4 (06:40→21:55)
[2017-04-27] MEDS: LEVOTHYROXINE NA 100 MCG TABLET (FP) PO SCH (06:40)
[2017-04-27] MEDS: INSULIN DETEMIR 100 UNITS/ML MDV SQ SCH ×2 (06:41→21:57)
--- NOTE | 2017-04-27 08:35 | PN ---
Progress Note, Physician History of Present Illness: seen and examined today in nad. states she is going home today. no overnight events. no new complaints. - Current Medication List Current Medications: Active Medications Aspirin (Ecotrin -) 81 mg PO DAILY [facility] Collagenase (Santyl -) 1 applic TP DAILY [facility] Last Admin: 04/26/17 12:24 Dose: Not Given Gentamicin Sulfate (Garamycin 0.1% Ointment -) 1 applic TP DAILY [facility] Last Admin: 04/26/17 14:54 Dose: 1 applic Heparin Sodium (Porcine) (Heparin -) 5,000 unit SQ TID [facility] Last Admin: 04/27/17 06:39 Dose: 5,000 unit Hydralazine HCl (Apresoline -) 25 mg PO BID [facility] Last Admin: 04/26/17 22:16 Dose: 25 mg Insulin Aspart (Novolog Vial Sliding Scale -) 1 vial SQ TIDAC [facility] PRN Reason: Protocol Last Admin: 04/27/17 06:40 Dose: Not Given Insulin Aspart (Novolog Vial Sliding Scale -) 1 vial SQ HS [facility] PRN Reason: Protocol Last Admin: 04/26/17 22:18 Dose: Not Given Insulin Detemir (Levemir Vial) 8 units SQ BID@0700,2200 [facility] Last Admin: 04/27/17 06:41 Dose: 8 units Levothyroxine Sodium (Synthroid -) 100 mcg PO DAILY@0700 [facility] Last Admin: 04/27/17 06:40 Dose: 100 mcg Multivitamins/Minerals/Vitamin C (Tab-A-Vit -) 1 tab PO DAILY [facility] Last Admin: 04/26/17 10:06 Dose: 1 tab Polyethylene Glycol (Miralax (For Daily Use) -) 17 gm PO DAILY [facility] Last Admin: 04/26/17 10:08 Dose: Not Given Prednisone (Deltasone -) 40 mg PO BID [facility] Last Admin: 04/26/17 22:15 Dose: 40 mg Valacyclovir HCl (Valtrex -) 500 mg PO BID [facility] Last Admin: 04/26/17 22:16 Dose: 500 mg - Objective Vital Signs: Vital Signs Temperature 97.9 F 04/27/17 05:51 Pulse Rate 57 L 04/27/17 05:51 Respiratory Rate 18 04/27/17 05:51 Blood Pressure 145/81 04/27/17 05:51 O2 Sat by Pulse Oximetry (%) 95 04/26/17 21:00 Constitutional: Yes: No Distress, Calm Eyes: Yes: Conjunctiva Clear, EOM Intact, PERRL HENT: Yes: Atraumatic, Normocephalic Neck: Yes: Supple, Trachea Midline Cardiovascular: Yes: Regular Rate and Rhythm, S1, S2. No: Bradycardia, Tachycardia, Pulse Irregular, Bruit, JVD, Gallop, Murmur, Rub, S3, S4, Varicosities Respiratory: Yes: Regular, CTA Bilaterally. No: Rales, Rhonchi, Wheezes Gastrointestinal: Yes: Normal Bowel Sounds, Soft. No: Distention, Tenderness Edema: LLE: Trace Peripheral Pulses WNL: Yes Peripheral Pulses: Left Doralis Pedis: 2+, Right Dorsalis Pedis: 2+ Neurological: Yes: Alert, Oriented Psychiatric: Yes: Alert, Oriented Labs: CBC, BMP 04/24/17 05:35 04/25/17 05:35 INR, PTT INR 1.10 (0.82-1.09) 04/22/17 06:00 Fibrinogen 249.0 mg/dL (238-498) D 04/22/17 06:00 - ....Imaging Chest X-ray: Report Reviewed, Image Reviewed Ultrasound: Report Reviewed EKG: Report Reviewed, Image Reviewed Other: Report Reviewed, Image Reviewed Assessment/Plan 87 year old woman a/w nonhealing LE ulcer, cellulitis, possible PNA, mildly elevated troponin, MYRTLE. Elevated troponin-minimally elevated with normal CK -unlikely ACS, likely due to combination of sepsis, chf, muscle breakdown -trop trended down -no chest pain or sig ekg changes -no events on tele -ECHO: normal LVEF; moderate bilateral atrial enlargement -plan as per Dr. Alvarez note is for stress MIBI when stable, if not done recently -cont ASA for now -close f/up with Dr. Alvarez as outpatient if discharged Diastolic CHF-chronic -overall euvolemic -hold off on diuresis for now Sepsis/Cellulitis/PNA -received Abx and steroids LE Non-healing wound -Vascular following
[2017-04-27] MEDS: hydrALAZINE HCL 10 MG TABLET PO SCH ×2 (09:07→21:56)
[2017-04-27] MEDS: valACYclovir HCL 500 MG TABLET (FP) PO SCH ×2 (09:07→21:58)
[2017-04-27] MEDS: ASPIRIN COATED 81 MG TABLET.EC PO SCH ×2 (09:07→09:49)
[2017-04-27] MEDS: predniSONE 20 MG TABLET (UD) PO SCH ×2 (09:07→21:56)
[2017-04-27] MEDS: MULTIVITAMINS (DAILY MVI) TABLET (FP) PO SCH (09:07)
[2017-04-27] MEDS: POLYETHYLENE GLYCOL 3350 119 GM BTL PO SCH (09:11)
[2017-04-27] MEDS: GENTAMICIN SO4 0.1% TOPICAL OINTMENT 15 GM/TUBE TUBE TP SCH (09:12)
[2017-04-27] MEDS: COLLAGENASE CLOSTRIDIUM HIST. 30 GRAMS TUBE TP SCH (09:12)
[2017-04-27] MEDS ORDERED: INSULIN (NOVOLOG) ASPART 100 UNITS/ML 10ML VIAL ONE (11:19)
--- NOTE | 2017-04-27 11:22 | PN ---
Progress Note (short form) - Note Progress Note: Events reviewed Feels better, less pain in legs Received treatment for vasculitis. Wounds skein drier, less inflammation. Superficial phlebitis on ultrasound - no need for systemic anticoagulation. Problem List - Problems (1) Venous stasis of both lower extremities Code(s): I87.8 - OTHER SPECIFIED DISORDERS OF VEINS (2) Venous ulcer of right lower extremity with varicose veins Code(s): I83.019 - VARICOSE VEINS OF RIGHT LOWER EXTREMITY W ULCER OF UNSP SITE
--- NOTE | 2017-04-27 17:35 | PN ---
Progress Note (short form) - Note Progress Note: Feels good denies any complaints Blood sugar fluctuating Able to self monitor and self inject insulin as per RN Vital Signs Period Temp Pulse Resp BP Sys/Horn Pulse Ox Last 24 Hr 97.7 F-98.2 F 57-64 18-20 137-167/68-82 95-96 PE: AO3 NecK: Supple, No JVD HEENT: PERRL, EOMI Lungs: CTA CVS: S1S2 Abd: Benign Ext:+ edema, Dressing both legs Neuro: No focal deficit CMP Sodium 142 mmol/L (136-145) 04/25/17 05:35 Potassium 4.5 mmol/L (3.5-5.1) 04/25/17 05:35 Chloride 111 mmol/L (98-107) H 04/25/17 05:35 Carbon Dioxide 23 mmol/L (21-32) 04/25/17 05:35 Anion Gap 8 (8-16) 04/25/17 05:35 BUN 62 mg/dL (7-18) H 04/25/17 05:35 Creatinine 2.2 mg/dL (0.55-1.02) H 04/25/17 05:35 Creat Clearance w eGFR 21.70 (>60) 04/20/17 06:00 POC Glucometer 255 UNITS (()) 04/27/17 11:16 Random Glucose 130 mg/dL (74-106) H 04/25/17 05:35 Hemoglobin A1c % 6.8 % (4.8-6.0) H 04/23/17 05:30 Lactic Acid 0.9 mmol/L (0.4-2.0) 04/12/17 18:30 Calcium 8.0 mg/dL (8.5-10.1) L 04/25/17 05:35 Phosphorus 3.9 mg/dL (2.5-4.9) 04/24/17 05:35 Magnesium 2.3 mg/dL (1.8-2.4) 04/24/17 05:35 Iron 13 ug/dL (27-139) L 04/12/17 14:10 TIBC 163 ug/dL (250-450) L 04/12/17 14:10 Iron Saturation 8 % (15-55) L 04/12/17 14:10 Transferrin 127 mg/dL (200-370) L 04/12/17 14:10 Ferritin Cancelled 04/12/17 14:10 Total Bilirubin 0.4 mg/dL (0.2-1.0) 04/20/17 06:00 AST 8 U/L (15-37) L D 04/20/17 06:00 ALT 20 U/L (12-78) 04/20/17 06:00 Alkaline Phosphatase 60 U/L (45-117) 04/20/17 06:00 LD Total 201 U/L (84-246) 04/13/17 06:15 Creatine Kinase 95 IU/L (26-192) 04/10/17 06:10 Creatine Kinase Index 0.5 % (0.0-5.0) 04/09/17 14:23 CK-MB (CK-2) 1.031 ng/mL (0.5-3.6) 04/09/17 14:23 Troponin I 0.08 ng/ml (0.00-0.05) H 04/10/17 06:10 C-Reactive Protein 10.0 MG/DL (0.00-0.3) H 04/11/17 07:00 Prot Electrophoresis (.) 04/17/17 06:20 Serum Total Protein 5.9 g/dL (6.0-8.5) L 04/17/17 06:20 Total Protein 5.6 g/dl (6.4-8.2) L 04/20/17 06:00 Albumin 2.3 g/dl (3.4-5.0) L 04/20/17 06:00 Globulin 3.3 g/dL (2.2-3.9) 04/17/17 06:20 Albumin/Globulin Ratio 0.8 (0.7-1.7) 04/17/17 06:20 Hpouz-3-Zcsktcoub 0.4 gm/dL (0.0-0.4) 04/17/17 06:20 Egxqf-5-Auyztkxez (%) 4.2 % (.) 04/17/17 18:00 Hsryh-6-Rrwprwfha 1.0 gm/dL (0.4-1.0) 04/17/17 06:20 Rkiui-9-Rydrdzvvg (%) 12.6 % (.) 04/17/17 18:00 Beta Globulins 0.9 gm/dL (0.7-1.3) 04/17/17 06:20 Beta Globulins (%) 12.8 % (.) 04/17/17 18:00 Gamma Globulins 0.9 gm/dL (0.4-1.8) 04/17/17 06:20 Gamma Globulins (%) 10.5 % (.) 04/17/17 18:00 M-Kuldip % Not observed % (Not Observed) 04/17/17 18:00 Triglycerides 133 mg/dL (35-160) 04/11/17 06:00 Cholesterol 136 mg/dL (50-200) 04/11/17 06:00 Total LDL Cholesterol 79 mg/dL (5-100) 04/11/17 06:00 HDL Cholesterol 31 mg/dL (40-60) L 04/11/17 06:00 Angiotensin Convert Enz 54 U/L (14-82) 04/16/17 15:30 TSH 1.91 uIU/ml (0.358-3.74) D 04/17/17 06:20 Free T4 1.93 ng/dl (0.76-1.46) H D 04/17/17 06:20 Free T3 1.7 pg/ml (2.0-4.4) L 04/11/17 11:03 Current Medications Generic Name Dose Route Start Last Admin Trade Name Byron PRN Reason Stop Dose Admin Aspirin 81 mg 04/27/17 10:00 04/27/17 09:49 Ecotrin - PO Not Given DAILY [facility] Collagenase 1 applic 04/10/17 10:00 04/27/17 09:12 Santyl - TP 1 applic DAILY [facility] Administration Gentamicin Sulfate 1 applic 04/16/17 10:00 04/27/17 09:12 Garamycin 0.1% Ointment - TP 1 applic DAILY [facility] Administration Heparin Sodium (Porcine) 5,000 unit 04/23/17 14:00 04/27/17 14:45 Heparin - SQ 5,000 unit TID [facility] Administration Hydralazine HCl 25 mg 04/23/17 22:00 04/27/17 09:07 Apresoline - PO 25 mg BID [facility] Administration Insulin Aspart 1 vial 04/24/17 07:00 04/27/17 11:21 Novolog Vial Sliding Scale - SQ 10 units TIDAC [facility] Administration Protocol Insulin Aspart 1 vial 04/23/17 22:00 04/26/17 22:18 Novolog Vial Sliding Scale - SQ Not Given [facility] Protocol Insulin Detemir 8 units 04/19/17 10:00 04/27/17 06:41 Levemir Vial SQ 8 units BID@0700,2200 [facility] Administration Levothyroxine Sodium 100 mcg 04/18/17 07:00 04/27/17 06:40 Synthroid - PO 100 mcg DAILY@0700 [facility] Administration Multivitamins/Minerals/Vitamin C 1 tab 04/23/17 10:00 04/27/17 09:07 Tab-A-Vit - PO 1 tab DAILY [facility] Administration Polyethylene Glycol 17 gm 04/10/17 10:00 04/27/17 09:11 Miralax (For Daily Use) - PO 17 gm DAILY [facility] Administration Prednisone 40 mg 04/17/17 18:30 04/27/17 09:07 Deltasone - PO 40 mg BID [facility] Administration Valacyclovir HCl 500 mg 04/15/17 22:00 04/27/17 09:07 Valtrex - PO 500 mg BID [facility] Administration AP: Hypothyroidism: Normalization of TSH with slightly high FT4 of 1.93 Earlier high TSH secondary to missing doses for few days Continue LT4 to 100mcG QD Hyperglycemia sec to steroid: A1c 6.8 now Monitor BGM ACHS Change Novolog Coverage Levemir 8 units BID Blood sugar better on current Insulin regimen. Will need to adjust Insulin dose once steroid dose is changed. Above discussed with pt. Pt to follow up in the office and call me at [phone] with any questions about Insulin dosing Pt able to self monitor blood glucose and self inject insulin. Pt should be sent home on current Insulin regimen Renal Insufficiency: s/p Biopsy microscopic polyangitis, on Rituximab Anemia Lower extremity ulcer Rt superficial thrombopheblitis
--- NOTE | 2017-04-27 20:41 | PN ---
Progress Note (short form) - Note Progress Note: Current Medications Aspirin (Ecotrin -) 81 mg PO DAILY [facility] Last Admin: 04/27/17 09:49 Dose: Not Given Collagenase (Santyl -) 1 applic TP DAILY [facility] Last Admin: 04/27/17 09:12 Dose: 1 applic Gentamicin Sulfate (Garamycin 0.1% Ointment -) 1 applic TP DAILY [facility] Last Admin: 04/27/17 09:12 Dose: 1 applic Heparin Sodium (Porcine) (Heparin -) 5,000 unit SQ TID [facility] Last Admin: 04/27/17 14:45 Dose: 5,000 unit Hydralazine HCl (Apresoline -) 25 mg PO BID [facility] Last Admin: 04/27/17 09:07 Dose: 25 mg Insulin Aspart (Novolog Vial Sliding Scale -) 1 vial SQ HS [facility] PRN Reason: Protocol Last Admin: 04/26/17 22:18 Dose: Not Given Insulin Aspart (Novolog Vial Sliding Scale -) 1 vial SQ TIDAC [facility] PRN Reason: Protocol Insulin Detemir (Levemir Vial) 8 units SQ BID@0700,2200 [facility] Last Admin: 04/27/17 06:41 Dose: 8 units Levothyroxine Sodium (Synthroid -) 100 mcg PO DAILY@0700 [facility] Last Admin: 04/27/17 06:40 Dose: 100 mcg Multivitamins/Minerals/Vitamin C (Tab-A-Vit -) 1 tab PO DAILY [facility] Last Admin: 04/27/17 09:07 Dose: 1 tab Polyethylene Glycol (Miralax (For Daily Use) -) 17 gm PO DAILY [facility] Last Admin: 04/27/17 09:11 Dose: 17 gm Prednisone (Deltasone -) 40 mg PO BID [facility] Last Admin: 04/27/17 09:07 Dose: 40 mg Valacyclovir HCl (Valtrex -) 500 mg PO BID [facility] Last Admin: 04/27/17 09:07 Dose: 500 mg Last Vital Signs Temp Pulse Resp BP Pulse Ox 97.9 F 54 L 18 151/70 96 04/27/17 17:42 04/27/17 17:42 04/27/17 17:42 04/27/17 17:42 04/27/17 09:00 CBC, BMP 04/24/17 05:35 04/25/17 05:35 ckd no recent labs she agrees to have blood draws saturday anemia Plan no change today
[2017-04-28] MEDS: INSULIN DETEMIR 100 UNITS/ML MDV SQ SCH ×2 (06:46→22:40)
[2017-04-28] MEDS: HEPARIN NA (PORCINE) 5,000 UNITS/ML 1ML VIAL SQ SCH ×3 (06:46→22:07)
[2017-04-28] MEDS: INSULIN SLIDING SCALE (NOVOLOG) 1 VIAL SQ SCH ×4 (06:47→22:07)
[2017-04-28] MEDS: LEVOTHYROXINE NA 100 MCG TABLET (FP) PO SCH (06:47)
[2017-04-28] MEDS: predniSONE 20 MG TABLET (UD) PO SCH ×2 (09:29→22:06)
[2017-04-28] MEDS: hydrALAZINE HCL 10 MG TABLET PO SCH ×2 (09:29→22:05)
[2017-04-28] MEDS: ASPIRIN COATED 81 MG TABLET.EC PO SCH (09:29)
[2017-04-28] MEDS: MULTIVITAMINS (DAILY MVI) TABLET (FP) PO SCH (09:29)
[2017-04-28] MEDS: valACYclovir HCL 500 MG TABLET (FP) PO SCH ×2 (09:30→22:08)
[2017-04-28] MEDS: GENTAMICIN SO4 0.1% TOPICAL OINTMENT 15 GM/TUBE TUBE TP SCH (09:32)
[2017-04-28] MEDS: COLLAGENASE CLOSTRIDIUM HIST. 30 GRAMS TUBE TP SCH (09:33)
[2017-04-28] MEDS: POLYETHYLENE GLYCOL 3350 119 GM BTL PO SCH (09:49)
--- NOTE | 2017-04-28 11:32 | PN ---
Progress Note, Physician History of Present Illness: seen and examined today in nad. no new complaints. - Current Medication List Current Medications: Active Medications Aspirin (Ecotrin -) 81 mg PO DAILY [facility] Last Admin: 04/28/17 09:29 Dose: 81 mg Collagenase (Santyl -) 1 applic TP DAILY [facility] Last Admin: 04/28/17 09:33 Dose: 1 applic Gentamicin Sulfate (Garamycin 0.1% Ointment -) 1 applic TP DAILY [facility] Last Admin: 04/28/17 09:32 Dose: 1 applic Heparin Sodium (Porcine) (Heparin -) 5,000 unit SQ TID [facility] Last Admin: 04/28/17 06:46 Dose: 5,000 unit Hydralazine HCl (Apresoline -) 25 mg PO BID [facility] Last Admin: 04/28/17 09:29 Dose: 25 mg Insulin Aspart (Novolog Vial Sliding Scale -) 1 vial SQ HS [facility] PRN Reason: Protocol Last Admin: 04/27/17 21:55 Dose: Not Given Insulin Aspart (Novolog Vial Sliding Scale -) 1 vial SQ TIDAC [facility] PRN Reason: Protocol Last Admin: 04/28/17 06:47 Dose: Not Given Insulin Detemir (Levemir Vial) 8 units SQ BID@0700,2200 [facility] Last Admin: 04/28/17 06:46 Dose: 8 units Levothyroxine Sodium (Synthroid -) 100 mcg PO DAILY@0700 [facility] Last Admin: 04/28/17 06:47 Dose: 100 mcg Multivitamins/Minerals/Vitamin C (Tab-A-Vit -) 1 tab PO DAILY [facility] Last Admin: 04/28/17 09:29 Dose: 1 tab Polyethylene Glycol (Miralax (For Daily Use) -) 17 gm PO DAILY [facility] Last Admin: 04/28/17 09:49 Dose: 17 gm Prednisone (Deltasone -) 40 mg PO BID [facility] Last Admin: 04/28/17 09:29 Dose: 40 mg Valacyclovir HCl (Valtrex -) 500 mg PO BID [facility] Last Admin: 04/28/17 09:30 Dose: 500 mg - Objective Vital Signs: Vital Signs Temperature 97.5 F L 04/28/17 09:25 Pulse Rate 65 04/28/17 09:25 Respiratory Rate 16 04/28/17 09:25 Blood Pressure 148/62 04/28/17 09:25 O2 Sat by Pulse Oximetry (%) 97 04/27/17 21:00 Constitutional: Yes: No Distress, Calm Eyes: Yes: Conjunctiva Clear, EOM Intact HENT: Yes: Atraumatic, Normocephalic Neck: Yes: Supple, Trachea Midline Cardiovascular: Yes: Regular Rate and Rhythm, S1, S2. No: Bradycardia, Tachycardia, Pulse Irregular, Bruit, JVD, Gallop, Murmur, Rub, S3, S4, Varicosities Respiratory: Yes: Regular, CTA Bilaterally. No: Rales, Rhonchi, Wheezes Gastrointestinal: Yes: Normal Bowel Sounds, Soft. No: Distention, Tenderness Edema: No Peripheral Pulses WNL: No Neurological: Yes: Alert, Oriented Psychiatric: Yes: Alert, Oriented Labs: CBC, BMP 04/24/17 05:35 04/25/17 05:35 INR, PTT INR 1.10 (0.82-1.09) 04/22/17 06:00 Fibrinogen 249.0 mg/dL (238-498) D 04/22/17 06:00 - ....Imaging Chest X-ray: Report Reviewed, Image Reviewed EKG: Report Reviewed, Image Reviewed Other: Report Reviewed, Image Reviewed Assessment/Plan 87 year old woman a/w nonhealing LE ulcer, cellulitis, possible PNA, mildly elevated troponin, MYRTLE. Elevated troponin-minimally elevated with normal CK -unlikely ACS, likely due to combination of sepsis, chf, muscle breakdown -trop trended down -no chest pain or sig ekg changes -no events on tele -ECHO: normal LVEF; moderate bilateral atrial enlargement -cont ASA for now -if discharged recc close f/up with Dr. Alvarez as outpatient if discharged Diastolic CHF-chronic -overall euvolemic -hold off on diuresis for now Sepsis/Cellulitis/PNA -received Abx and steroids LE Non-healing wound -Vascular following
[2017-04-28] MEDS ORDERED: INSULIN (NOVOLOG) ASPART 100 UNITS/ML 10ML VIAL ONE (11:54)
[2017-04-28 12:31] LABS: BASOPHIL 0.2 % (0-2.0); MCH 28.1 pg (25.7-33.7); MCHC 32.2 g/dl (32.0-36.0); MEAN CELL VOLUME 87.3 fl (80-96); MEAN PLT VOLUME 9.6 fl (7.5-11.1); NEUTROPHILS 93.4 % (42.8-82.8); PLATELET COUNT 196 K/MM3 (134-434); RDW 17.1 % (11.6-15.6); WHITE BLOOD COUNT 13.7 K/mm3 (4.0-10.0)
--- NOTE | 2017-04-28 13:02 | PN ---
Progress Note (short form) - Note Progress Note: Patient seen and examined She feels well. s/p rituxan General: NAD HEENT: No scleral icterus, no LAD Lungs: CTA b/l ABdomen: soft LE: +bilateral ulcers in dressing,much improved CBC, BMP 04/28/17 12:10 Current Medications Generic Name Dose Route Start Last Admin Trade Name Byron PRN Reason Stop Dose Admin Aspirin 81 mg 04/27/17 10:00 04/28/17 09:29 Ecotrin - PO 81 mg DAILY [facility] Administration Collagenase 1 applic 04/10/17 10:00 04/28/17 09:33 Santyl - TP 1 applic DAILY [facility] Administration Gentamicin Sulfate 1 applic 04/16/17 10:00 04/28/17 09:32 Garamycin 0.1% Ointment - TP 1 applic DAILY [facility] Administration Heparin Sodium (Porcine) 5,000 unit 04/23/17 14:00 04/28/17 06:46 Heparin - SQ 5,000 unit TID [facility] Administration Hydralazine HCl 25 mg 04/23/17 22:00 04/28/17 09:29 Apresoline - PO 25 mg BID [facility] Administration Insulin Aspart 1 vial 04/23/17 22:00 04/27/17 21:55 Novolog Vial Sliding Scale - SQ Not Given [facility] Protocol Insulin Aspart 1 vial 04/27/17 17:36 04/28/17 12:03 Novolog Vial Sliding Scale - SQ 6 units TIDAC [facility] Administration Protocol Insulin Detemir 8 units 04/19/17 10:00 04/28/17 06:46 Levemir Vial SQ 8 units BID@0700,2200 [facility] Administration Levothyroxine Sodium 100 mcg 04/18/17 07:00 04/28/17 06:47 Synthroid - PO 100 mcg DAILY@0700 [facility] Administration Multivitamins/Minerals/Vitamin C 1 tab 04/23/17 10:00 04/28/17 09:29 Tab-A-Vit - PO 1 tab DAILY [facility] Administration Polyethylene Glycol 17 gm 04/10/17 10:00 04/28/17 09:49 Miralax (For Daily Use) - PO 17 gm DAILY [facility] Administration Prednisone 40 mg 04/17/17 18:30 04/28/17 09:29 Deltasone - PO 40 mg BID [facility] Administration Valacyclovir HCl 500 mg 04/15/17 22:00 04/28/17 09:30 Valtrex - PO 500 mg BID [facility] Administration Last Vital Signs Temp Pulse Resp BP Pulse Ox 97.5 F L 65 16 148/62 97 04/28/17 09:25 04/28/17 09:25 04/28/17 09:25 04/28/17 09:25 04/27/17 21:00 Assessment/Plan: with new diagnosis of vasculitis microscopic polyangitis (renal/Pulm), anemia of inflammation. -tranfuse prn, monitor crit -on steroids -s/p rituxan, tolerated well. CBC today, reviewed, counts good. -f/u with renal/Rheum as an OP upon d/c -d/c per primary team
[2017-04-28 13:03] LABS: ALBUMIN 2.8 g/dl (3.4-5.0); ALK PHOS 65 U/L (45-117); ANION GAP 8 (8-16); BILIRUBIN,TOTAL 0.4 mg/dL (0.2-1.0); CALCIUM 8.6 mg/dL (8.5-10.1); CO2 26 mmol/L (21-32); CREATININE 2.2 mg/dL (0.55-1.02); GLUCOSE,RANDOM 153 mg/dL (74-106); SGOT/AST 13 U/L (15-37); SGPT/ALT 21 U/L (12-78); TOT PROT 6.1 g/dl (6.4-8.2)
--- NOTE | 2017-04-28 16:33 | PN ---
Physical Exam: SUBJECTIVE: Patient seen and examined. OBJECTIVE: Vital Signs Period Temp Pulse Resp BP Sys/Horn Pulse Ox Last 24 Hr 97.5 F-98 F 54-74 16-20 139-163/58-90 97 GENERAL: The patient is awake, alert, and fully oriented, in no acute distress. HEAD: Normal with no signs of trauma. LUNGS: Breath sounds equal, clear to auscultation bilaterally, no wheezes, no crackles, no accessory muscle use. HEART: Regular rate and rhythm, S1, S2 without murmur, rub or gallop. ABDOMEN: Soft, nontender, nondistended, normoactive bowel sounds, no guarding, no rebound UPPER EXTREMITIES: 2+ pulses, warm, well-perfused, no edema. LOWER EXTREMITIES: large non-healing ulcer medial aspect right leg, smaller ulcers left leg; 1-2+ bilateral edema NEUROLOGICAL: Cranial nerves II through XII grossly intact. Normal speech PSYCH: Normal mood, normal affect. Laboratory Results - last 24 hr 04/27/17 04/27/17 17:14 21:51 WBC RBC Hgb Hct MCV MCH MCHC RDW Plt Count MPV Neutrophils % Lymphocytes % Monocytes % Eosinophils % Basophils % Sodium Potassium Chloride Carbon Dioxide Anion Gap BUN Creatinine Creat Clearance w eGFR POC Glucometer 224 192 Random Glucose Calcium Total Bilirubin AST ALT Alkaline Phosphatase Total Protein Albumin Active Medications Generic Name Dose Route Start Trade Name Julioq PRN Reason Stop Aspirin 81 mg 04/27/17 10:00 Ecotrin - PO DAILY [facility] Collagenase 1 applic 04/10/17 10:00 Santyl - TP DAILY [facility] Gentamicin Sulfate 1 applic 04/16/17 10:00 Garamycin 0.1% Ointment - TP DAILY [facility] Heparin Sodium (Porcine) 5,000 unit 04/23/17 14:00 Heparin - SQ TID [facility] Hydralazine HCl 25 mg 04/23/17 22:00 Apresoline - PO BID [facility] Insulin Aspart 1 vial 04/23/17 22:00 Novolog Vial Sliding Scale - SQ HS [facility] Protocol Insulin Aspart 1 vial 04/27/17 17:36 Novolog Vial Sliding Scale - SQ TIDAC [facility] Protocol Insulin Detemir 8 units 04/19/17 10:00 Levemir Vial SQ BID@0700,2200 [facility] Levothyroxine Sodium 100 mcg 04/18/17 07:00 Synthroid - PO DAILY@0700 [facility] Multivitamins/Minerals/Vitamin C 1 tab 04/23/17 10:00 Tab-A-Vit - PO DAILY [facility] Polyethylene Glycol 17 gm 04/10/17 10:00 Miralax (For Daily Use) - PO DAILY [facility] Prednisone 40 mg 04/17/17 18:30 Deltasone - PO BID [facility] Valacyclovir HCl 500 mg 04/15/17 22:00 Valtrex - PO BID [facility] ASSESSMENT/PLAN: 87 year-old female with a PMH significant for HTN, chronic venous stasis lower extremity ulcers, polymyaglia rheumatica, and hypothyroidism, admitted on for bilateral lower extremity cellulitis and MYRTLE. Hospital course complicated by new onset of hemoptysis with multfocal consolidative opacities, possible glomerulonephritis (hematura, proteineuria with hyaline and granular casts) and progressive elevation of creatinine. Renal biopsy performed 04/22. Diagnosed with microscopic polyangitis. First Rituximab treatment 04/26. 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 --first dose Rituximab 04/26 based on the [facility] protocol (375 mg/m2 once per week for 4 doses) --continue prednisone PO 40mg BID for now B/l lower extremity cellulitis with chronic lower extremity ulcers - stable off antibiotics Elevated troponin --troponin 0.11-->0.08, likely demand, do not suspect primary GA --Echo: normal LV; moderate BLAE --daily ASA 81mg --stress as outpatient Chronic diastolic heart failure --overall euvolemic MYRTLE on CKD --04/12 renal/bladder: evidence of chronic medical disease --Cr steady @ 2.2 Hypothyroidism --normalization of TSH with slightly high FT4; decrease LT4 to 100mcg QD F/E/N Fluids: PO intake adequate Electrolytes: replete as indicated Nutrition: diabetic sodium Daily PT DVT prophylaxis: subq heparin, oob, ambulation Dispo: patient was medically cleared for discharge on 04/26/17. Full Code. Visit type - Emergency Visit Emergency Visit: Yes ED Registration Date: 04/09/17 Care time: The patient presented to the Emergency Department on the above date and was hospitalized for further evaluation of their emergent condition. - New Patient This patient is new to me today: No - Critical Care Critical Care patient: No
--- NOTE | 2017-04-28 16:33 | PN ---
Physical Exam: SUBJECTIVE: Patient seen and examined at bedside. Chatting with friends. OBJECTIVE: Vital Signs Period Temp Pulse Resp BP Sys/Horn Pulse Ox Last 24 Hr 97.5 F-98 F 54-74 16-20 139-163/58-90 97 GENERAL: The patient is awake, alert, and fully oriented, in no acute distress. HEAD: Normal with no signs of trauma. LUNGS: Breath sounds equal, clear to auscultation bilaterally, no wheezes, no crackles, no accessory muscle use. HEART: Regular rate and rhythm, S1, S2 without murmur, rub or gallop. ABDOMEN: Soft, nontender, nondistended, normoactive bowel sounds, no guarding, no rebound UPPER EXTREMITIES: 2+ pulses, warm, well-perfused, no edema. LOWER EXTREMITIES: large non-healing ulcer medial aspect right leg, smaller ulcers left leg; 1-2+ bilateral edema NEUROLOGICAL: Cranial nerves II through XII grossly intact. Normal speech, steady gait with a walker observed PSYCH: Normal mood, normal affect. Laboratory Results - last 24 hr 04/27/17 04/27/17 04/28/17 17:14 21:51 06:45 WBC RBC Hgb Hct MCV MCH MCHC RDW Plt Count MPV Neutrophils % Lymphocytes % Monocytes % Eosinophils % Basophils % Sodium Potassium Chloride Carbon Dioxide Anion Gap BUN Creatinine Creat Clearance w eGFR POC Glucometer 224 192 110 Random Glucose Calcium Total Bilirubin AST ALT Alkaline Phosphatase Total Protein Albumin 04/28/17 04/28/17 04/28/17 11:59 12:10 12:10 WBC 13.7 H RBC 3.56 L Hgb 10.0 L Hct 31.1 L MCV 87.3 MCH 28.1 MCHC 32.2 RDW 17.1 H Plt Count 196 MPV 9.6 Neutrophils % 93.4 H Lymphocytes % 3.0 L D Monocytes % 3.4 L Eosinophils % 0.0 Basophils % 0.2 Sodium 139 Potassium 4.7 Chloride 105 Carbon Dioxide 26 Anion Gap 8 BUN 61 H Creatinine 2.2 H Creat Clearance w eGFR 21.70 POC Glucometer 176 Random Glucose 153 H Calcium 8.6 Total Bilirubin 0.4 AST 13 L D ALT 21 Alkaline Phosphatase 65 Total Protein 6.1 L Albumin 2.8 L D Active Medications Generic Name Dose Route Start Last Admin Trade Name Freq PRN Reason Stop Dose Admin Aspirin 81 mg 04/27/17 10:00 10/08/17 09:29 Ecotrin - PO 81 mg DAILY [facility] Administration Collagenase 1 applic 04/10/17 10:00 04/28/17 09:33 Santyl - TP 1 applic DAILY [facility] Administration Gentamicin Sulfate 1 applic 04/16/17 10:00 04/28/17 09:32 Garamycin 0.1% Ointment - TP 1 applic DAILY [facility] Administration Heparin Sodium (Porcine) 5,000 unit 04/23/17 14:00 04/28/17 14:54 Heparin - SQ 5,000 unit TID [facility] Administration Hydralazine HCl 25 mg 04/23/17 22:00 04/28/17 09:29 Apresoline - PO 25 mg BID [facility] Administration Insulin Aspart 1 vial 04/23/17 22:00 04/27/17 21:55 Novolog Vial Sliding Scale - SQ Not Given HS [facility] Protocol Insulin Aspart 1 vial 04/27/17 17:36 04/28/17 12:03 Novolog Vial Sliding Scale - SQ 6 units TIDAC [facility] Administration Protocol Insulin Detemir 8 units 04/19/17 10:00 04/28/17 06:46 Levemir Vial SQ 8 units BID@0700,2200 [facility] Administration Levothyroxine Sodium 100 mcg 04/18/17 07:00 04/28/17 06:47 Synthroid - PO 100 mcg DAILY@0700 [facility] Administration Multivitamins/Minerals/Vitamin C 1 tab 04/23/17 10:00 04/28/17 09:29 Tab-A-Vit - PO 1 tab DAILY [facility] Administration Polyethylene Glycol 17 gm 04/10/17 10:00 04/28/17 09:49 Miralax (For Daily Use) - PO 17 gm DAILY [facility] Administration Prednisone 40 mg 04/17/17 18:30 04/28/17 09:29 Deltasone - PO 40 mg BID [facility] Administration Valacyclovir HCl 500 mg 04/15/17 22:00 04/28/17 09:30 Valtrex - PO 500 mg BID [facility] Administration ASSESSMENT/PLAN: 87 year-old female with a PMH significant for HTN, chronic venous stasis lower extremity ulcers, polymyaglia rheumatica, and hypothyroidism, admitted on for bilateral lower extremity cellulitis and MYRTLE. Hospital course complicated by new onset of hemoptysis with multfocal consolidative opacities, possible glomerulonephritis (hematura, proteineuria with hyaline and granular casts) and progressive elevation of creatinine. Renal biopsy performed 04/22. Diagnosed with microscopic polyangitis. First Rituximab treatment 04/26. 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 --first dose Rituximab 04/26 based on the Bruno protocol (375 mg/m2 once per week for 4 doses) --continue prednisone PO 40mg BID for now B/l lower extremity cellulitis with chronic lower extremity ulcers - stable off antibiotics Elevated troponin --troponin 0.11-->0.08, likely demand, do not suspect primary MN --Echo: normal LV; moderate BLAE --daily ASA 81mg --stress as outpatient Chronic diastolic heart failure --overall euvolemic MYRTLE on CKD --04/12 renal/bladder: evidence of chronic medical disease --Cr steady @ 2.2 Hypothyroidism --normalization of TSH with slightly high FT4; decrease LT4 to 100mcg QD F/E/N Fluids: PO intake adequate Electrolytes: replete as indicated Nutrition: diabetic sodium Daily PT DVT prophylaxis: subq heparin, oob, ambulation Dispo: patient was medically cleared for discharge on 04/26/17. Full Code. Visit type - Emergency Visit Emergency Visit: Yes ED Registration Date: 04/09/17 Care time: The patient presented to the Emergency Department on the above date and was hospitalized for further evaluation of their emergent condition. - New Patient This patient is new to me today: No - Critical Care Critical Care patient: No
--- NOTE | 2017-04-28 20:18 | PN ---
Progress Note (short form) - Note Progress Note: Current Medications Current Medications Aspirin (Ecotrin -) 81 mg PO DAILY [facility] Last Admin: 04/28/17 09:29 Dose: 81 mg Collagenase (Santyl -) 1 applic TP DAILY [facility] Last Admin: 04/28/17 09:33 Dose: 1 applic Gentamicin Sulfate (Garamycin 0.1% Ointment -) 1 applic TP DAILY [facility] Last Admin: 04/28/17 09:32 Dose: 1 applic Heparin Sodium (Porcine) (Heparin -) 5,000 unit SQ TID [facility] Last Admin: 04/28/17 14:54 Dose: 5,000 unit Hydralazine HCl (Apresoline -) 25 mg PO BID [facility] Last Admin: 04/28/17 09:29 Dose: 25 mg Insulin Aspart (Novolog Vial Sliding Scale -) 1 vial SQ HS [facility] PRN Reason: Protocol Last Admin: 04/27/17 21:55 Dose: Not Given Insulin Aspart (Novolog Vial Sliding Scale -) 1 vial SQ TIDAC [facility] PRN Reason: Protocol Last Admin: 04/28/17 17:22 Dose: 10 units Insulin Detemir (Levemir Vial) 8 units SQ BID@0700,2200 [facility] Last Admin: 04/28/17 06:46 Dose: 8 units Levothyroxine Sodium (Synthroid -) 100 mcg PO DAILY@0700 [facility] Last Admin: 04/28/17 06:47 Dose: 100 mcg Multivitamins/Minerals/Vitamin C (Tab-A-Vit -) 1 tab PO DAILY [facility] Last Admin: 04/28/17 09:29 Dose: 1 tab Polyethylene Glycol (Miralax (For Daily Use) -) 17 gm PO DAILY [facility] Last Admin: 04/28/17 09:49 Dose: 17 gm Prednisone (Deltasone -) 40 mg PO BID [facility] Last Admin: 04/28/17 09:29 Dose: 40 mg Valacyclovir HCl (Valtrex -) 500 mg PO BID [facility] Last Admin: 04/28/17 09:30 Dose: 500 mg Last Vital Signs Temp Pulse Resp BP Pulse Ox 98.1 F 58 L 18 148/75 94 L 04/28/17 18:49 04/28/17 18:49 04/28/17 18:49 04/28/17 18:49 04/28/17 09:00 alert in nad Lungs clear Heart Reg Abd soft Ext no edema IMP- daquan vasculitis ckd no recent labs she agrees to have blood draws saturday anemia Plan no change today
[2017-04-29] MEDS: HEPARIN NA (PORCINE) 5,000 UNITS/ML 1ML VIAL SQ SCH (05:45)
[2017-04-29] MEDS: INSULIN DETEMIR 100 UNITS/ML MDV SQ SCH ×2 (06:10→09:21)
[2017-04-29] MEDS: LEVOTHYROXINE NA 100 MCG TABLET (FP) PO SCH (06:11)
[2017-04-29] MEDS: INSULIN SLIDING SCALE (NOVOLOG) 1 VIAL SQ SCH ×2 (06:11→12:17)
[2017-04-29] MEDS: hydrALAZINE HCL 10 MG TABLET PO SCH (09:18)
[2017-04-29] MEDS: MULTIVITAMINS (DAILY MVI) TABLET (FP) PO SCH (09:20)
[2017-04-29] MEDS: predniSONE 20 MG TABLET (UD) PO SCH (09:20)
[2017-04-29] MEDS: valACYclovir HCL 500 MG TABLET (FP) PO SCH (09:20)
[2017-04-29] MEDS: ASPIRIN COATED 81 MG TABLET.EC PO SCH (09:21)
[2017-04-29] MEDS: GENTAMICIN SO4 0.1% TOPICAL OINTMENT 15 GM/TUBE TUBE TP SCH (09:22)
[2017-04-29] MEDS: POLYETHYLENE GLYCOL 3350 119 GM BTL PO SCH (09:23)
[2017-04-29] MEDS ORDERED: COLLAGENASE CLOSTRIDIUM HIST. 30 GRAMS TUBE TP SCH (10:00)
--- NOTE | 2017-04-29 10:54 | PN ---
Progress Note, Physician Chief Complaint: stable s/p kidney bx no c/o History of Present Illness: 87-year-old black female sent in by Dr. Silvestre for evaluation of nonhealing chronic lower extremity wounds now suggestive of cellulitis. Patient states was seen earlier this week and then again today for redness and swelling of the thumb, bilateral lower extremity wounds and swelling, now with a draining wound to the side of left ankle. Patient denies fever, chills but does state pain and redness to the area. Patient states had an ultrasound a few days ago which was negative for DVT. Patient does have history of MRSA. Patient also states history of chronic venous stasis. - Current Medication List Current Medications: Active Medications Aspirin (Ecotrin -) 81 mg PO DAILY [facility] Last Admin: 04/29/17 09:21 Dose: 81 mg Collagenase (Santyl -) 1 applic TP DAILY [facility] Last Admin: 04/29/17 09:23 Dose: 1 applic Gentamicin Sulfate (Garamycin 0.1% Ointment -) 1 applic TP DAILY [facility] Last Admin: 04/29/17 09:22 Dose: 1 applic Heparin Sodium (Porcine) (Heparin -) 5,000 unit SQ TID [facility] Last Admin: 04/29/17 05:45 Dose: 5,000 unit Hydralazine HCl (Apresoline -) 25 mg PO BID [facility] Last Admin: 04/29/17 09:18 Dose: 25 mg Insulin Aspart (Novolog Vial Sliding Scale -) 1 vial SQ HS [facility] PRN Reason: Protocol Last Admin: 04/28/17 22:07 Dose: 6 units Insulin Aspart (Novolog Vial Sliding Scale -) 1 vial SQ TIDAC [facility] PRN Reason: Protocol Last Admin: 04/29/17 06:11 Dose: Not Given Insulin Detemir (Levemir Vial) 8 units SQ BID@0700,2200 [facility] Last Admin: 04/29/17 09:21 Dose: 8 units Levothyroxine Sodium (Synthroid -) 100 mcg PO DAILY@0700 [facility] Last Admin: 04/29/17 06:11 Dose: 100 mcg Multivitamins/Minerals/Vitamin C (Tab-A-Vit -) 1 tab PO DAILY [facility] Last Admin: 04/29/17 09:20 Dose: 1 tab Polyethylene Glycol (Miralax (For Daily Use) -) 17 gm PO DAILY [facility] Last Admin: 04/29/17 09:23 Dose: 17 gm Prednisone (Deltasone -) 40 mg PO BID [facility] Last Admin: 04/29/17 09:20 Dose: 40 mg Valacyclovir HCl (Valtrex -) 500 mg PO BID [facility] Last Admin: 04/29/17 09:20 Dose: 500 mg - Objective Vital Signs: Vital Signs Temperature 98.3 F 04/29/17 05:59 Pulse Rate 60 04/29/17 05:59 Respiratory Rate 18 04/28/17 22:00 Blood Pressure 134/71 04/29/17 05:59 O2 Sat by Pulse Oximetry (%) 96 04/28/17 21:00 Eyes: Yes: WNL, Conjunctiva Clear, EOM Intact HENT: Yes: WNL, Atraumatic, Normocephalic Neck: Yes: WNL, Supple, Trachea Midline Cardiovascular: Yes: WNL, Regular Rate and Rhythm Respiratory: Yes: WNL, Regular, CTA Bilaterally Gastrointestinal: Yes: WNL, Normal Bowel Sounds Genitourinary: Yes: WNL Musculoskeletal: Yes: WNL Extremities: Yes: Other (surgical dressing) Edema: No Integumentary: Yes: WNL Neurological: Yes: WNL, Alert, Oriented ...Motor Strength: WNL Psychiatric: Yes: WNL Labs: CBC, BMP 04/28/17 12:10 04/28/17 12:10 INR, PTT INR 1.10 (0.82-1.09) 04/22/17 06:00 Fibrinogen 249.0 mg/dL (238-498) D 04/22/17 06:00 Assessment/Plan 87 year old woman a/w nonhealing LE ulcer, cellulitis, possible PNA, mildly elevated troponin, MYRTLE. Elevated troponin-minimally elevated with normal CK -unlikely ACS, likely due to combination of sepsis, chf, muscle breakdown -trop trended down -no chest pain or sig ekg changes -no events on tele -ECHO: normal LVEF; moderate bilateral atrial enlargement -cont ASA for now Diastolic CHF-chronic -overall euvolemic -hold off on diuresis for now Sepsis/Cellulitis/PNA -received Abx and steroids LE Non-healing wound -Vascular following
--- NOTE | 2017-04-29 10:57 | PN ---
Progress Note, Physician History of Present Illness: Pt seen and examined at bedside. She is awake and alert. She denies shortness of breath. - Current Medication List Current Medications: Active Medications Aspirin (Ecotrin -) 81 mg PO DAILY [facility] Last Admin: 04/29/17 09:21 Dose: 81 mg Collagenase (Santyl -) 1 applic TP DAILY [facility] Last Admin: 04/29/17 09:23 Dose: 1 applic Gentamicin Sulfate (Garamycin 0.1% Ointment -) 1 applic TP DAILY [facility] Last Admin: 04/29/17 09:22 Dose: 1 applic Heparin Sodium (Porcine) (Heparin -) 5,000 unit SQ TID [facility] Last Admin: 04/29/17 05:45 Dose: 5,000 unit Hydralazine HCl (Apresoline -) 25 mg PO BID [facility] Last Admin: 04/29/17 09:18 Dose: 25 mg Insulin Aspart (Novolog Vial Sliding Scale -) 1 vial SQ HS [facility] PRN Reason: Protocol Last Admin: 04/28/17 22:07 Dose: 6 units Insulin Aspart (Novolog Vial Sliding Scale -) 1 vial SQ TIDAC [facility] PRN Reason: Protocol Last Admin: 04/29/17 06:11 Dose: Not Given Insulin Detemir (Levemir Vial) 8 units SQ BID@0700,2200 [facility] Last Admin: 04/29/17 09:21 Dose: 8 units Levothyroxine Sodium (Synthroid -) 100 mcg PO DAILY@0700 [facility] Last Admin: 04/29/17 06:11 Dose: 100 mcg Multivitamins/Minerals/Vitamin C (Tab-A-Vit -) 1 tab PO DAILY [facility] Last Admin: 04/29/17 09:20 Dose: 1 tab Polyethylene Glycol (Miralax (For Daily Use) -) 17 gm PO DAILY [facility] Last Admin: 04/29/17 09:23 Dose: 17 gm Prednisone (Deltasone -) 40 mg PO BID [facility] Last Admin: 04/29/17 09:20 Dose: 40 mg Valacyclovir HCl (Valtrex -) 500 mg PO BID [facility] Last Admin: 04/29/17 09:20 Dose: 500 mg - Objective Vital Signs: Vital Signs Temperature 98.3 F 04/29/17 05:59 Pulse Rate 60 04/29/17 05:59 Respiratory Rate 18 04/28/17 22:00 Blood Pressure 134/71 04/29/17 05:59 O2 Sat by Pulse Oximetry (%) 96 04/28/17 21:00 Constitutional: Yes: Calm Eyes: Yes: Conjunctiva Clear HENT: Yes: Atraumatic Cardiovascular: Yes: S1, S2 Respiratory: Yes: CTA Bilaterally Genitourinary: Yes: WNL Musculoskeletal: Yes: WNL Edema: Yes Edema: LLE: Trace, RLE: Trace Neurological: Yes: Oriented Psychiatric: Yes: Oriented Labs: CBC, BMP 04/28/17 12:10 04/28/17 12:10 INR, PTT INR 1.10 (0.82-1.09) 04/22/17 06:00 Fibrinogen 249.0 mg/dL (238-498) D 04/22/17 06:00 Problem List - Problems (1) Acute kidney injury Code(s): N17.9 - ACUTE KIDNEY FAILURE, UNSPECIFIED (2) Cellulitis Code(s): L03.90 - CELLULITIS, UNSPECIFIED Qualifiers: Qualified Code(s): L03.119 - Cellulitis of unspecified part of limb; L03.119 - Cellulitis of unspecified part of limb (3) Hypothyroid Code(s): E03.9 - HYPOTHYROIDISM, UNSPECIFIED (4) Venous stasis of both lower extremities Code(s): I87.8 - OTHER SPECIFIED DISORDERS OF VEINS Assessment/Plan Current Medications Generic Name Dose Route Start Last Admin Trade Name Julioq PRN Reason Stop Dose Admin Aspirin 81 mg 04/27/17 10:00 04/29/17 09:21 Ecotrin - PO 81 mg DAILY [facility] Administration Collagenase 1 applic 04/29/17 10:00 04/29/17 09:23 Santyl - TP 1 applic DAILY [facility] Administration Gentamicin Sulfate 1 applic 04/16/17 10:00 04/29/17 09:22 Garamycin 0.1% Ointment - TP 1 applic DAILY [facility] Administration Heparin Sodium (Porcine) 5,000 unit 04/23/17 14:00 04/29/17 05:45 Heparin - SQ 5,000 unit TID [facility] Administration Hydralazine HCl 25 mg 04/23/17 22:00 04/29/17 09:18 Apresoline - PO 25 mg BID [facility] Administration Insulin Aspart 1 vial 04/23/17 22:00 04/28/17 22:07 Novolog Vial Sliding Scale - SQ 6 units HS [facility] Administration Protocol Insulin Aspart 1 vial 04/27/17 17:36 04/29/17 06:11 Novolog Vial Sliding Scale - SQ Not Given TIDAC [facility] Protocol Insulin Detemir 8 units 04/19/17 10:00 04/29/17 09:21 Levemir Vial SQ 8 units BID@0700,2200 [facility] Administration Levothyroxine Sodium 100 mcg 04/18/17 07:00 04/29/17 06:11 Synthroid - PO 100 mcg DAILY@0700 [facility] Administration Multivitamins/Minerals/Vitamin C 1 tab 04/23/17 10:00 04/29/17 09:20 Tab-A-Vit - PO 1 tab DAILY [facility] Administration Polyethylene Glycol 17 gm 04/10/17 10:00 04/29/17 09:23 Miralax (For Daily Use) - PO 17 gm DAILY [facility] Administration Prednisone 40 mg 04/17/17 18:30 04/29/17 09:20 Deltasone - PO 40 mg BID [facility] Administration Valacyclovir HCl 500 mg 04/15/17 22:00 04/29/17 09:20 Valtrex - PO 500 mg BID [facility] Administration Impression 1. MYRTLE 2. lower extremity ulcer 3. hypothyroid 4. HTN 5. polymyalgia 6. anemia 7. vasculitis microscopic polyangitis 8. thrombophlebitis Plan - pt to be discharged today - discussed plan with pt - she is to return on for Rituximab infusion - pt can see me in office next week - will need follow up with vascular - cont valtrex, discussed with ID - will need cardio follow up Dr Hamilton
--- NOTE | 2017-04-29 11:03 | DS ---
Physical Exam: SUBJECTIVE: Patient seen and examined OBJECTIVE: Vital Signs Period Temp Pulse Resp BP Sys/Horn Pulse Ox Last 24 Hr 97.7 F-98.3 F 56-74 18-20 134-151/71-83 96 PHYSICAL EXAM GENERAL: The patient is awake, alert, and fully oriented, in no acute distress. HEAD: Normal with no signs of trauma. EYES: PERRL, extraocular movements intact, sclera anicteric, conjunctiva clear. ENT: Ears normal, nares patent, oropharynx clear without exudates, moist mucous membranes. NECK: Trachea midline, full range of motion, supple. LUNGS: Breath sounds equal, clear to auscultation bilaterally, no wheezes, no crackles, no accessory muscle use. HEART: Regular rate and rhythm, S1, S2 without murmur, rub or gallop. ABDOMEN: Soft, nontender, nondistended, normoactive bowel sounds, no guarding, no rebound, no hepatosplenomegaly, no masses. EXTREMITIES: 2+ pulses, warm, well-perfused, no edema. NEUROLOGICAL: Cranial nerves II through XII grossly intact. Normal speech, gait not observed. PSYCH: Normal mood, normal affect. SKIN: Warm, dry, normal turgor, no rashes or lesions noted. LABS Laboratory Results - last 24 hr 04/28/17 04/28/17 04/28/17 11:59 12:10 12:10 WBC 13.7 H RBC 3.56 L Hgb 10.0 L Hct 31.1 L MCV 87.3 MCH 28.1 MCHC 32.2 RDW 17.1 H Plt Count 196 MPV 9.6 Neutrophils % 93.4 H Lymphocytes % 3.0 L D Monocytes % 3.4 L Eosinophils % 0.0 Basophils % 0.2 Sodium 139 Potassium 4.7 Chloride 105 Carbon Dioxide 26 Anion Gap 8 BUN 61 H Creatinine 2.2 H Creat Clearance w eGFR 21.70 POC Glucometer 176 Random Glucose 153 H Calcium 8.6 Total Bilirubin 0.4 AST 13 L D ALT 21 Alkaline Phosphatase 65 Total Protein 6.1 L Albumin 2.8 L D 04/28/17 04/28/17 04/29/17 17:18 21:03 05:42 WBC RBC Hgb Hct MCV MCH MCHC RDW Plt Count MPV Neutrophils % Lymphocytes % Monocytes % Eosinophils % Basophils % Sodium Potassium Chloride Carbon Dioxide Anion Gap BUN Creatinine Creat Clearance w eGFR POC Glucometer 277 268 90 Random Glucose Calcium Total Bilirubin AST ALT Alkaline Phosphatase Total Protein Albumin HOSPITAL COURSE: Date of Admission:04/09/17 Date of Discharge: 04/29/17 Discharge Summary Reason For Visit: CELLULITIS Current Active Problems Acute hypoxemic respiratory failure (Acute) Acute kidney injury (Acute) Bilateral pulmonary infiltrates on chest x-ray (Acute) Elevated troponin (Acute) Goodpasture syndrome (Acute) Hemoptysis (Acute) Hypertension (Acute) Hypothyroid (Acute) Sinus bradycardia (Acute) Vasculitis (Acute) Venous stasis of both lower extremities (Acute) Venous ulcer of right lower extremity with varicose veins (Acute) Condition: Improved - Instructions Diet, Activity, Other Instructions: Three prescriptions have been sent to your pharmacy: prednisone, hydralazine which is a blood pressure medication and Valtrex. Take these medications as directed. You should also take a baby aspirin (81mg) every day. Continue the Valtrex while receiving immunosuppression (prednisone) for the vasculitis You are to [facility] this week for your next IV therapy session. It is important for you to follow up with Drs. Hamilton and Carlene on Saturday. Call their offices and make an appointment to see them as soon as possible. Their contact information is enclosed in this discharge packet Please follow up with Dr. Maciel Brink by calling her office if you have questions regarding the insulin doses. [phone] Here is the sliding scale for you to follow at home: Take Levemir 8 units twice per day at 0700 a.m. and 11pm In between the doses: Insulin Sliding Scale IF your blood sugar is Take this many units of NOVOLOG 101-150 none 151-200 none 201-250 4 units 251-300 6 units 301-350 8 units 351-400 10 units 400> Take 12 units, repeat your blood sugar in 15 mins, and call your doctor for further instructions Return to the emergency department for any new or worsening symptoms. You can also call me at [phone] if you have any questions [facility] Referrals: Kole Concepcion MD [Staff Physician] - 1 Week Jennifer Hamilton MD [Staff Physician] - 1 Week Disposition: HOME - Home Medications Comprehensive Discharge Medication List: Ambulatory Orders Levothyroxine [Synthroid -] 100 mcg PO DAILY 03/23/14 Hydralazine HCl [Apresoline -] 25 mg PO BID #60 tablet 04/25/17 Prednisone [Deltasone -] 40 mg PO BID #60 tablet 04/25/17 Aspirin Coated [Ecotrin -] 81 mg PO DAILY #30 tab 04/27/17 Alcohol Antiseptic Pads [Caretouch Alcohol Prep Pad] 1 each TP ACHS #1 box 04/29 Insulin (Levemir) [Levemir Flexpen -] 8 units SQ BID #1 pen 04/29/17 Insulin Aspart [Novolog Flexpen] 2 unit SQ ACHS #1 insuln.pen 04/29/17 Lancets/Blood Glucose Strips [Fora [id number] [facility]] 1 each ACHS #1 box 04/29/17 Miscellaneous Medical Supply [Glucometer Device] 1 each SQ ASDIR #1 kit [employer]isc[employer] [Glucometer Test Strips #100] 1 each SQ ASDIR #1 box 04/29/17 [place], Safety [Easy Touch Fliplock Needle] 1 each ACHS #1 box 04/29/17 Valacyclovir HCl [Valtrex -] 500 mg PO BID #60 tablet 04/29/17 - Discharge Referral Referred to [facility] No
--- NOTE | 2017-04-29 13:02 | DS ---
Physical Exam: SUBJECTIVE: Patient seen and examined. She is for discharge today. OBJECTIVE: Vital Signs Period Temp Pulse Resp BP Sys/Horn Pulse Ox Last 24 Hr 97.7 F-98.3 F 56-74 18-20 134-151/67-83 96-96 PHYSICAL EXAM GENERAL: The patient is awake, alert, and fully oriented, in no acute distress. HEAD: Normal with no signs of trauma. LUNGS: Breath sounds equal, clear to auscultation bilaterally, no wheezes, no crackles, no accessory muscle use. HEART: Regular rate and rhythm, S1, S2 without murmur, rub or gallop. ABDOMEN: Soft, nontender, nondistended, normoactive bowel sounds, no guarding, no rebound UPPER EXTREMITIES: 2+ pulses, warm, well-perfused, no edema. LOWER EXTREMITIES: large non-healing ulcer medial aspect right leg, smaller ulcers left leg; 1-2+ bilateral edema NEUROLOGICAL: Normal speech PSYCH: Normal mood, normal affect. LABS Laboratory Results - last 24 hr 04/28/17 04/28/17 04/28/17 12:10 17:18 21:03 Sodium 139 Potassium 4.7 Chloride 105 Carbon Dioxide 26 Anion Gap 8 BUN 61 H Creatinine 2.2 H Creat Clearance w eGFR 21.70 POC Glucometer 277 268 Random Glucose 153 H Calcium 8.6 Total Bilirubin 0.4 AST 13 L D ALT 21 Alkaline Phosphatase 65 Total Protein 6.1 L Albumin 2.8 L D 04/29/17 04/29/17 05:42 12:14 Sodium Potassium Chloride Carbon Dioxide Anion Gap BUN Creatinine Creat Clearance w eGFR POC Glucometer 90 101 Random Glucose Calcium Total Bilirubin AST ALT Alkaline Phosphatase Total Protein Albumin HOSPITAL COURSE: Date of Admission:04/09/17 Date of Discharge: 04/29/17 Patient is an 87 year-old female with a significant past medical history of HTN , chronic venous stasis lower extremity ulcers, polymyaglia rheumatica, and hypothyroidism. She was admitted on 04/09/17 for bilateral lower extremity cellulitis and MYRTLE. Hospital course complicated by new onset of hemoptysis with multfocal consolidative opacities, possible glomerulonephritis and progressive elevation of creatinine. Renal biopsy performed 04/22. Diagnosed with microscopic polyangitis. First Rituximab treatment 04/26. She is scheduled to follow up for another Rituximab treatment this week . Microscopic polyangitis, acute - under treatment to continue as an outpatient A/P: On Prednisone 40mg PO BID Received Rituximab 04/26, will need 4 more weekly doses B/l lower extremity cellulitis with chronic lower extremity ulcers, acute on chronic A/P: S/P full course of antibiotics during hospitalization, now stable off antibiotics Wound care with VNS nurse and outpatient follow up with vascular Elevated troponins A/p: On ASA 81mg daily, stress test as an outpatient Cardiology follow up Chronic Kidney Disease, acute on chronic Creatinine stable, will need outpatient follow up with Dr. Hamilton Hypothyroidism A/P: On home dose of Synthroid of 100mcgs Hyperglycemia, likely steroid use A/p: Will need to continue Levemir and Novolog outpatient Referral to Chemical Preparer sent, patient has shown ability to administer insulin She will also have VNS follow up DVT prophylaxis: subq heparin, oob, ambulation Dispo: patient was medically cleared for discharge on 04/26/17. Full Code. Minutes to complete discharge: 60 Discharge Summary Reason For Visit: CELLULITIS Current Active Problems Acute hypoxemic respiratory failure (Acute) Acute kidney injury (Acute) Bilateral pulmonary infiltrates on chest x-ray (Acute) Elevated troponin (Acute) Goodpasture syndrome (Acute) Hemoptysis (Acute) Hypertension (Acute) Hypothyroid (Acute) Sinus bradycardia (Acute) Vasculitis (Acute) Venous stasis of both lower extremities (Acute) Venous ulcer of right lower extremity with varicose veins (Acute) Condition: Improved - Instructions Diet, Activity, Other Instructions: Three prescriptions have been sent to your pharmacy: prednisone, hydralazine which is a blood pressure medication and Valtrex. Take these medications as directed. You should also take a baby aspirin (81mg) every day. Continue the Valtrex while receiving immunosuppression (prednisone) for the vasculitis You are to return to [facility] on the 7th floor this week for your next IV therapy session. It is important for you to follow up with Drs. Hamilton and Carlene on Saturday. Call their offices and make an appointment to see them as soon as possible. Their contact information is enclosed in this discharge packet Please follow up with Dr. Maciel Brink by calling her office if you have questions regarding the insulin doses. [phone] Here is the sliding scale for you to follow at home: Take Levemir 8 units twice per day at 0700 a.m. and 11pm In between the doses: Insulin Sliding Scale IF your blood sugar is Take this many units of NOVOLOG 101-150 none 151-200 none 201-250 4 units 251-300 6 units 301-350 8 units 351-400 10 units 400> Take 12 units, repeat your blood sugar in 15 mins, and call your doctor for further instructions Return to the emergency department for any new or worsening symptoms. You can also call me at [phone] if you have any questions [facility] Referrals: Kole Concepcion MD [Staff Physician] - 1 Week Jennifer Hamilton MD [Staff Physician] - 1 Week Disposition: HOME - Home Medications Comprehensive Discharge Medication List: Ambulatory Orders Levothyroxine [Synthroid -] 100 mcg PO DAILY 03/23/14 Hydralazine HCl [Apresoline -] 25 mg PO BID #60 tablet 04/25/17 Prednisone [Deltasone -] 40 mg PO BID #60 tablet 04/25/17 Aspirin Coated [Ecotrin -] 81 mg PO DAILY #30 tab 04/27/17 Alcohol Antiseptic Pads [Caretouch Alcohol Prep Pad] 1 each ACHS #1 box 04/29 Insulin (Levemir) [Levemir Flexpen -] 8 units SQ BID #1 pen 04/29/17 Insulin Aspart [Novolog Flexpen] 2 unit SQ ACHS #1 insuln.pen 04/29/17 Lancets/Blood Glucose Strips [Fora [id number] Strp-Lnct] 1 each MC ACHS #1 box 04/29/17 Miscellaneous Medical Supply [Glucometer Device] 1 each SQ ASDIR #1 kit Miscellaneous Medical Supply [Glucometer Test Strips #100] 1 each SQ ASDIR #1 box 04/29/17 [place], Safety [Easy Touch Fliplock Needle] 1 each MC ACHS #1 box 04/29/17 Valacyclovir HCl [Valtrex -] 500 mg PO BID #60 tablet 04/29/17 This patient is new to me today: No Emergency Visit: Yes ED Registration Date: 04/09/17 Care time: The patient presented to the Emergency Department on the above date and was hospitalized for further evaluation of their emergent condition. Critical Care patient: No - Discharge Referral Referred to [facility] No
--- NOTE | 2017-04-29 14:19 | PN ---
Progress Note (short form) - Note Progress Note: Feels good denies any complaints Blood sugar fluctuating Able to self monitor and self inject insulin Vital Signs Period Temp Pulse Resp BP Sys/Horn Pulse Ox Last 24 Hr 97.7 F-98.3 F 56-74 18-20 134-151/67-83 96-96 PE: AO3 NecK: Supple, No JVD HEENT: PERRL, EOMI Lungs: CTA CVS: S1S2 Abd: Benign Ext:+ edema, Dressing both legs Neuro: No focal deficit CMP Sodium 139 mmol/L (136-145) 04/28/17 12:10 Potassium 4.7 mmol/L (3.5-5.1) 04/28/17 12:10 Chloride 105 mmol/L (98-107) 04/28/17 12:10 Carbon Dioxide 26 mmol/L (21-32) 04/28/17 12:10 Anion Gap 8 (8-16) 04/28/17 12:10 BUN 61 mg/dL (7-18) H 04/28/17 12:10 Creatinine 2.2 mg/dL (0.55-1.02) H 04/28/17 12:10 Creat Clearance w eGFR 21.70 (>60) 04/28/17 12:10 POC Glucometer 101 UNITS (()) 04/29/17 12:14 Random Glucose 153 mg/dL (74-106) H 04/28/17 12:10 Hemoglobin A1c % 6.8 % (4.8-6.0) H 04/23/17 05:30 Lactic Acid 0.9 mmol/L (0.4-2.0) 04/12/17 18:30 Calcium 8.6 mg/dL (8.5-10.1) 04/28/17 12:10 Phosphorus 3.9 mg/dL (2.5-4.9) 04/24/17 05:35 Magnesium 2.3 mg/dL (1.8-2.4) 04/24/17 05:35 Iron 13 ug/dL (27-139) L 04/12/17 14:10 TIBC 163 ug/dL (250-450) L 04/12/17 14:10 Iron Saturation 8 % (15-55) L 04/12/17 14:10 Transferrin 127 mg/dL (200-370) L 04/12/17 14:10 Ferritin Cancelled 04/12/17 14:10 Total Bilirubin 0.4 mg/dL (0.2-1.0) 04/28/17 12:10 AST 13 U/L (15-37) L D 04/28/17 12:10 ALT 21 U/L (12-78) 04/28/17 12:10 Alkaline Phosphatase 65 U/L (45-117) 04/28/17 12:10 LD Total 201 U/L (84-246) 04/13/17 06:15 Creatine Kinase 95 IU/L (26-192) 04/10/17 06:10 Creatine Kinase Index 0.5 % (0.0-5.0) 04/09/17 14:23 CK-MB (CK-2) 1.031 ng/mL (0.5-3.6) 04/09/17 14:23 Troponin I 0.08 ng/ml (0.00-0.05) H 04/10/17 06:10 C-Reactive Protein 10.0 MG/DL (0.00-0.3) H 04/11/17 07:00 Prot Electrophoresis (.) 04/17/17 06:20 Serum Total Protein 5.9 g/dL (6.0-8.5) L 04/17/17 06:20 Total Protein 6.1 g/dl (6.4-8.2) L 04/28/17 12:10 Albumin 2.8 g/dl (3.4-5.0) L D 04/28/17 12:10 Globulin 3.3 g/dL (2.2-3.9) 04/17/17 06:20 Albumin/Globulin Ratio 0.8 (0.7-1.7) 04/17/17 06:20 Jqvqi-4-Itedhjvrj 0.4 gm/dL (0.0-0.4) 04/17/17 06:20 Zjlim-5-Vjkaxpyas (%) 4.2 % (.) 04/17/17 18:00 Lmlsv-7-Ajyhgfsyr 1.0 gm/dL (0.4-1.0) 04/17/17 06:20 Gpdjc-4-Qavisnxea (%) 12.6 % (.) 04/17/17 18:00 Beta Globulins 0.9 gm/dL (0.7-1.3) 04/17/17 06:20 Beta Globulins (%) 12.8 % (.) 04/17/17 18:00 Gamma Globulins 0.9 gm/dL (0.4-1.8) 04/17/17 06:20 Gamma Globulins (%) 10.5 % (.) 04/17/17 18:00 M-Kuldip % Not observed % (Not Observed) 04/17/17 18:00 Triglycerides 133 mg/dL (35-160) 04/11/17 06:00 Cholesterol 136 mg/dL (50-200) 04/11/17 06:00 Total LDL Cholesterol 79 mg/dL (5-100) 04/11/17 06:00 HDL Cholesterol 31 mg/dL (40-60) L 04/11/17 06:00 Angiotensin Convert Enz 54 U/L (14-82) 04/16/17 15:30 TSH 1.91 uIU/ml (0.358-3.74) D 04/17/17 06:20 Free T4 1.93 ng/dl (0.76-1.46) H D 04/17/17 06:20 Free T3 1.7 pg/ml (2.0-4.4) L 04/11/17 11:03 Current Medications Generic Name Dose Route Start Last Admin Trade Name Byron PRN Reason Stop Dose Admin Aspirin 81 mg 04/27/17 10:00 04/29/17 09:21 Ecotrin - PO 81 mg DAILY MILES Administration Collagenase 1 applic 04/29/17 10:00 04/29/17 09:23 Santyl - TP 1 applic DAILY MILES Administration Gentamicin Sulfate 1 applic 04/16/17 10:00 04/29/17 09:22 Garamycin 0.1% Ointment - TP 1 applic DAILY MILES Administration Heparin Sodium (Porcine) 5,000 unit 04/23/17 14:00 04/29/17 05:45 Heparin - SQ 5,000 unit TID MILES Administration Hydralazine HCl 25 mg 04/23/17 22:00 04/29/17 09:18 Apresoline - PO 25 mg BID MILES Administration Insulin Aspart 1 vial 04/23/17 22:00 04/28/17 22:07 Novolog Vial Sliding Scale - SQ 6 units HS MILES Administration Protocol Insulin Aspart 1 vial 04/27/17 17:36 04/29/17 12:17 Novolog Vial Sliding Scale - SQ Not Given [facility] Protocol Insulin Detemir 8 units 04/19/17 10:00 04/29/17 09:21 Levemir Vial SQ 8 units BID@0700,2200 MILES Administration Levothyroxine Sodium 100 mcg 04/18/17 07:00 04/29/17 06:11 Synthroid - PO 100 mcg DAILY@0700 MILES Administration Multivitamins/Minerals/Vitamin C 1 tab 04/23/17 10:00 04/29/17 09:20 Tab-A-Vit - PO 1 tab DAILY MLIES Administration Polyethylene Glycol 17 gm 04/10/17 10:00 04/29/17 09:23 Miralax (For Daily Use) - PO 17 gm DAILY MILES Administration Prednisone 40 mg 04/17/17 18:30 04/29/17 09:20 Deltasone - PO 40 mg BID MILES Administration Valacyclovir HCl 500 mg 04/15/17 22:00 04/29/17 09:20 Valtrex - PO 500 mg BID MILES Administration AP: Hypothyroidism: Normalization of TSH with slightly high FT4 of 1.93 Earlier high TSH secondary to missing doses for few days Continue LT4 to 100mcG QD Repeat TFT in 2 to 3 weeks Hyperglycemia sec to steroid: A1c 6.8 now Monitor BGM ACHS Change Novolog Coverage Levemir 8 units BID Blood sugar better on current Insulin regimen. Will need to adjust Insulin dose once steroid dose is changed. Above discussed with pt. Pt to follow up in the office and call me at [phone] with any questions about Insulin dosing Pt able to self monitor blood glucose and self inject insulin. Novolog Coverage changed to one starting with blood sugar >200 Will f/u as outpt and adjust dose as necessary Renal Insufficiency: s/p Biopsy microscopic polyangitis, on Rituximab Anemia Lower extremity ulcer Rt superficial thrombopheblitis
[2017-04-29 14:45] VITALS: BP 147/83; PULSE 70; TEMP 97.7
--- NOTE | 2017-05-08 15:24 | PATH ---
Surgical Pathology Report Patient Name: ALEX [facility]B [facility]. Rec. #: [id number] /Age/Gender: 1940 (Age: 77) / F Account: [id number] Location: [facility] MED/SURG Taken: 04/22/2017 Received: 04/22/2017 Reported: 05/08/2017 Physicians: Breanna Ambriz Specimen(s) Received RENAL BIOPSY Clinical History None Provided Intraoperative Consult Diagnosis Renal biopsy: Small fragments of renal cortex. Additional tissue requested. Teddy Bosch M.D., 04/22/17. Final Diagnosis Renal biopsy: 1. 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 2. Tubular atrophy and interstitial fibrosis, mild. 3. Arteriosclerosis, moderate. See final report ([id number]) from [place], [place]. Electronically Signed Nina Callahan M.D. Gross Description Received in saline labeled "left kidney," are 4 rao fragments of soft tissue averaging 0.5 cm in greatest dimension. The specimens are divided, placed in 10% buffered formalin, Stanley fixative and glutaraldehyde. The specimen is sent to [facility] for further studies. /04/22/201704/22/2017
== END 2017-04-29 15:41 | disposition home or self-care (01) | DRG 673 ==
LOC: JER 12:41 → JERBED 16:11 → J4S 04-10 00:10 → J7W 04-25 17:18
PROVIDERS: ADMIT Internal Medicine; ATTEND Nurse Practitioner Family
PROC: 30233H1 Transfusion of Nonautologous Whole Blood into Peripheral Vein, Percutaneous Approach (ICD-10-PCS; principal; 2017-04-15)
PROC: 0FB04ZX Excision of Liver, Percutaneous Endoscopic Approach, Diagnostic (ICD-10-PCS; 2017-04-22)
DX: N17.9 Acute kidney failure, unspecified (principal); J96.01 Acute respiratory failure with hypoxia; M31.7 Microscopic polyangiitis; L97.319 Non-pressure chronic ulcer of right ankle with unspecified severity; L97.829 Non-pressure chronic ulcer of other part of left lower leg with unspecified severity; I13.0 Hypertensive heart and chronic kidney disease with heart failure and stage 1 through stage 4 chronic kidney disease, or unspecified chronic kidney disease; I50.32 Chronic diastolic (congestive) heart failure; L03.116 Cellulitis of left lower limb; L03.115 Cellulitis of right lower limb; R04.2 Hemoptysis; D62 Acute posthemorrhagic anemia; I80.01 Phlebitis and thrombophlebitis of superficial vessels of right lower extremity; I87.8 Other specified disorders of veins; E03.9 Hypothyroidism, unspecified; Z87.891 Personal history of nicotine dependence; M35.3 Polymyalgia rheumatica; N18.9 Chronic kidney disease, unspecified; R03.0 Elevated blood-pressure reading, without diagnosis of hypertension; D64.9 Anemia, unspecified; Z51.89 Encounter for other specified aftercare; Z86.14 Personal history of Methicillin resistant Staphylococcus aureus infection; K59.00 Constipation, unspecified; D63.8 Anemia in other chronic diseases classified elsewhere; T38.0X5A Adverse effect of glucocorticoids and synthetic analogues, initial encounter; R73.9 Hyperglycemia, unspecified; Y92.230 Patient room in hospital as the place of occurrence of the external cause; Z91.14 Patient's other noncompliance with medication regimen; R00.1 Bradycardia, unspecified; A60.1 Herpesviral infection of perianal skin and rectum
CPT/HCPCS: 36415; 36430; 36600; 50200; 71010-TC; 71250-TC; 76098-TC; 76775-TC; 76856-TC; 76942-TC; 80048; 80053; 80061; 81003; 81015; 82164; 82272; 82436; 82553; 82570; 82728; 82803; 83010; 83036; 83516; 83520; 83540; 83550; 83605; 83615; 83721; 83735; 84100; 84133; 84155; 84156; 84157; 84165; 84300; 84439; 84443; 84466; 84481; 84484; 84540; 85025; 85027; 85384; 85610; 85651; 85730; 86038; 86140; 86160; 86162; 86225; 86256; 86480; 86704; 86705; 86706; 86708; 86803; 86850; 86870; 86900; 86901; 86902; 86922; 87040; 87070; 87081; 87086; 87186; 87205; 87252; 87340; 87899; 88300-TC; 93005; 93010; 93306-TC; 93970-TC; 94010; 97116-GP; 97161-GP; 99285-25; G0480; J1644; J9310; P9038; P9058

== ENCOUNTER 2017-05-02 07:54 | Day surgery (SDC) | payer OTHER, BC ==
[2017-05-02 09:02] LABS: BASOPHIL 0.1 % (0-2.0); MCH 28.8 pg (25.7-33.7); MCHC 32.9 g/dl (32.0-36.0); MEAN CELL VOLUME 87.6 fl (80-96); MEAN PLT VOLUME 9.3 fl (7.5-11.1); NEUTROPHILS 96.4 % (42.8-82.8); PLATELET COUNT 124 K/MM3 (134-434); RDW 17.5 % (11.6-15.6); WHITE BLOOD COUNT 11.5 K/mm3 (4.0-10.0)
[2017-05-02 09:26] LABS: ANION GAP 8 (8-16); CALCIUM 8.6 mg/dL (8.5-10.1); CO2 25 mmol/L (21-32); CREATININE 2.2 mg/dL (0.55-1.02); GLUCOSE,RANDOM 196 mg/dL (74-106); MAGNESIUM 2.4 mg/dL (1.8-2.4); SGOT/AST 14 U/L (15-37); SGPT/ALT 24 U/L (12-78)
[2017-05-02 09:30] LABS: ALK PHOS 66 U/L (45-117); BILIRUBIN,TOTAL 0.5 mg/dL (0.2-1.0); TOT PROT 5.8 g/dl (6.4-8.2)
[2017-05-02] MEDS ORDERED: ACETAMINOPHEN 500 MG TABLET (FP) PO ONE (09:30)
[2017-05-02] MEDS ORDERED: methylPREDNISolone NA SUCC 125 MG/2 ML VIAL IVPB ONE (09:30)
[2017-05-02] MEDS ORDERED: diphenhydrAMINE HCL 25 MG CAPSULE (FP) PO ONE (09:30)
[2017-05-02] MEDS ORDERED: DEXTROSE 5% IVPB ONE (10:00)
[2017-05-02] MEDS ORDERED: RITUXIMAB IVPB ONE (10:00)
[2017-05-02] MEDS ORDERED: WATER IVPB ONE (10:00)
[2017-05-02] MEDS ORDERED: INSULIN (NOVOLOG) ASPART 100 UNITS/ML 10ML VIAL ONE (12:03)
[2017-05-02] MEDS ORDERED: INSULIN SLIDING SCALE (NOVOLOG) 1 VIAL SQ SCH (16:30)
[2017-05-02 19:39] VITALS: BP 141/72; PULSE 63
[2017-05-02 19:43] VITALS: TEMP 98.5
== END 2017-05-02 15:45 | disposition home or self-care (01) ==
LOC: JCHEMO 07:54 → J7W 07:54 → JCHEMO 15:45
PROVIDERS: ATTEND Internal Medicine Rheumatology
PROC: 3E033GC Introduction of Other Therapeutic Substance into Peripheral Vein, Percutaneous Approach (ICD-10-PCS; principal; 2017-05-02)
PROC: 3E033GC Introduction of Other Therapeutic Substance into Peripheral Vein, Percutaneous Approach (ICD-10-PCS; 2017-05-02)
DX: M31.7 Microscopic polyangiitis (principal)
CPT/HCPCS: 36415; 80053; 83735; 84134; 85025; 96365; 96366; 96367; 96375; 96413; 96415; J9310

== ENCOUNTER 2017-05-08 07:15 | Day surgery (SDC) | payer OTHER, BC ==
[2017-05-08] MEDS ORDERED: diphenhydrAMINE HCL 25 MG CAPSULE (FP) PO ONE (08:45)
[2017-05-08] MEDS ORDERED: methylPREDNISolone NA SUCC 125 MG/2 ML VIAL IVPB ONE (08:45)
[2017-05-08] MEDS ORDERED: ACETAMINOPHEN 500 MG TABLET (FP) PO ONE (08:45)
[2017-05-08] MEDS ORDERED: WATER IVPB ONE (09:15)
[2017-05-08] MEDS ORDERED: DEXTROSE 5% IVPB ONE (09:15)
[2017-05-08] MEDS ORDERED: RITUXIMAB IVPB ONE (09:15)
[2017-05-08 13:20] VITALS: BP 158/81; PULSE 48; TEMP 97.7
== END 2017-05-08 14:00 | disposition home or self-care (01) ==
LOC: J7W 07:15 → JCHEMO 07:15
PROVIDERS: ATTEND Internal Medicine Rheumatology
PROC: 3E03305 Introduction of Other Antineoplastic into Peripheral Vein, Percutaneous Approach (ICD-10-PCS; principal; 2017-05-08)
PROC: 3E033GC Introduction of Other Therapeutic Substance into Peripheral Vein, Percutaneous Approach (ICD-10-PCS; 2017-05-08)
DX: M31.7 Microscopic polyangiitis (principal)
CPT/HCPCS: 96375; 96413; 96415; J9310

== ENCOUNTER 2017-05-10 15:11 | Inpatient (IN) | payer OTHER, BC ==
--- NOTE | 2017-05-10 15:29 | PDOC ---
History of Present Illness - General Chief Complaint: Hemoptysis Stated Complaint: COUGHING BLOOD (PCP SENT) Time Seen by Provider: 05/10/17 15:25 History Source: Patient - History of Present Illness Initial Comments: 05/10/17 15:43 CC: 1 episode of hemoptysis Patient is a 77 y.o. 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 Past History - Past Medical History Allergies/Adverse Reactions: Allergies Allergy/AdvReac Type Severity Reaction Status Date / Time Sulfa (Sulfonamide Allergy Severe Verified 05/10/17 15:14 Antibiotics) Home Medications: Ambulatory Orders Levothyroxine [Synthroid -] 100 mcg PO DAILY 03/23/14 Hydralazine HCl [Apresoline -] 25 mg PO BID #60 tablet 04/25/17 Prednisone [Deltasone -] 40 mg PO BID #60 tablet 04/25/17 Aspirin Coated [Ecotrin -] 81 mg PO DAILY #30 tab 04/27/17 Alcohol Antiseptic Pads [Caretouch Alcohol Prep Pad] 1 each TP ACHS #1 box 04/29 Insulin (Levemir) [Levemir Flexpen -] 8 units SQ BID #1 pen 04/29/17 Insulin Aspart [Novolog Flexpen] 2 unit SQ ACHS #1 insuln.pen 04/29/17 Lancets/Blood Glucose Strips [Fora [id number] Strp-Lnct] 1 each MC ACHS #1 box 04/29/17 Miscellaneous Medical Supply [Glucometer Device] 1 each SQ ASDIR #1 kit Miscellaneous Medical Supply [Glucometer Test Strips #100] 1 each SQ ASDIR #1 box 04/29/17 [place], Safety [Easy Touch Fliplock Needle] 1 each MC ACHS #1 box 04/29/17 Valacyclovir HCl [Valtrex -] 500 mg PO BID #60 tablet 04/29/17 Anemia: No Asthma: No Cancer: No Cardiac Disorders: No CVA: No COPD: No CHF: No Dementia: No Diabetes: No GI Disorders: No Disorders: No HTN: Yes (BORDERLINE) Hypercholesterolemia: No Liver Disease: No Seizures: No Thyroid Disease: Yes (HYPO) Other medical history: ?IMMUNE DEFICIENCY - Surgical History Abdominal Surgery: Yes (ABDOMINAL SX WHILE , INTESTINAL OBSRU 1970) Appendectomy: No Cardiac Surgery: No Cholecystectomy: Yes Lung Surgery: No Neurologic Surgery: No Orthopedic Surgery: No - Suicide/Smoking/Psychosocial Hx Smoking History: Never smoked Have you smoked in the past 12 months: No If you are a former smoker, when did you quit?: 30 years ago Hx Alcohol Use: No Drug/Substance Use Hx: No Substance Use Type: None Hx Substance Use Treatment: No Review of Systems - Review of Systems Constitutional: Yes: Malaise. No: Chills, Fever Respiratory: Yes: Cough. No: Orthopnea Cardiac (ROS): No: Chest Pain ABD/GI: No: Constipated, Diarrhea, Nausea, Vomiting : No: Burning, Dysuria Psychiatric: Yes: Anxiety *Physical Exam - Vital Signs Last Vital Signs Temp Pulse Resp BP Pulse Ox 98.0 F 105 H 20 176/99 94 L 05/10/17 15:14 05/10/17 15:14 05/10/17 15:14 05/10/17 15:14 05/10/17 15:14 - Physical Exam General Appearance: Yes: Appropriately Dressed, Thin Respiratory/Chest: positive: Lungs Clear Cardiovascular: positive: S1, S2 Gastrointestinal/Abdominal: positive: Soft Extremity: positive: Normal Capillary Refill, Normal Inspection Neurologic: positive: rn residential II-XII NML intact, Fully Oriented, Alert ED Treatment Course - LABORATORY CBC & Chemistry Diagram: 05/11/17 12:30 05/11/17 06:00 Medical Decision Making - Medical Decision Making 05/11/17 13:09 Patient is a 77 y.o. female who presents to our ED with a single episode of hemoptysis. 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 Jennifer Hamilton) requests admission. During ED course patient was hemodynamically stable and displayed no repeat episodes of hemoptysis. Patient admitted under Dr. Mena. 05/11/17 16:27 *DC/Admit/Observation/Transfer Diagnosis at time of Disposition: Hemoptysis
[2017-05-10 16:50] LABS: MCH 29.9 pg (25.7-33.7); MCHC 33.6 g/dl (32.0-36.0); MEAN CELL VOLUME 89.1 fl (80-96); MEAN PLT VOLUME 9.2 fl (7.5-11.1); PLATELET COUNT 84 K/MM3 (134-434); RDW 24.5 % (11.6-15.6); WHITE BLOOD COUNT 12.6 K/mm3 (4.0-10.0)
[2017-05-10 17:04] LABS: ALBUMIN 3.5 g/dl (3.4-5.0); ANION GAP 12 (8-16); CALCIUM 8.1 mg/dL (8.5-10.1); CO2 25 mmol/L (21-32); GLUCOSE,RANDOM 291 mg/dL (74-106)
[2017-05-10 17:07] LABS: ALK PHOS 79 U/L (45-117); BILIRUBIN,TOTAL 1.3 mg/dL (0.2-1.0); CREATININE 2.5 mg/dL (0.55-1.02); SGPT/ALT 29 U/L (12-78); TOT PROT 6.3 g/dl (6.4-8.2)
[2017-05-10 17:20] LABS: INR 1.05 (0.82-1.09); PROTHROMBIN TIME (PATIENT) 11.9 SEC (9.98-11.88)
[2017-05-10 17:22] LABS: MAGNESIUM 2.1 mg/dL (1.8-2.4); SGOT/AST 25 U/L (15-37)
[2017-05-10 17:24] LABS: ACTIVATED PTT 20.2 SECONDS (26.9-34.4)
[2017-05-10 17:44] LABS: URINE APPEARANCE SLCLOUDY; URINE BILIRUBIN NEGATIVE (NEGATIVE); URINE BLOOD 3+ (NEGATIVE); URINE COLOR LTYELLOW; URINE GLUCOSE (UA) 3+ (NEGATIVE); URINE KETONE NEGATIVE (NEGATIVE); URINE NITRITE POSITIVE (NEGATIVE); URINE UROBILINOGEN NEGATIVE mg/dL (0.2-1.0)
[2017-05-10 18:07] LABS: URINE PROTEIN 2+ (NEGATIVE)
--- NOTE | 2017-05-10 18:33 | PDOC ---
Attending Attestation - Resident Resident Name: Alyssia Sanders - HPI HPI: 05/10/17 18:31 Pt presents to the ED complaining of a single episode of hemoptysis. History of hemoptysis secondary to microscopic polyangitis. 05/10/17 19:04 05/10/17 19:06 - Physicial Exam PE: 05/10/17 19:07 Patient is well appearing if slightly tachypneic in the ED. - Medical Decision Making 05/10/17 19:07 Pt presents to the ED complaining of hemoptysis likey secondary to polyangitis that is recurrent despite ritiximab. Will check labs, admit to medicine, continue to monitor for further episodes of hemoptusis.
[2017-05-10 18:36] LABS: TOTAL CELLS COUNTED 100
[2017-05-10 18:37] LABS: PLATELET ESTIMATE DECREASED (NORMAL)
[2017-05-10 19:47] LABS: URINE BACTERIA MODERATE /hpf (NONE SEEN); URINE RBC 197 /hpf (0-3); URINE WBC 15 /hpf (3-5)
--- NOTE | 2017-05-10 20:49 | HP ---
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 who preseted to the hospital today due to coughing bloodX1 . She was discharged from [facility] one week ago and had 3 weeks hospitalization here for same reason. ER course was notable for: (1)cxr (2)CBC (3)BMP Recent Travel: DENIES PAST MEDICAL HISTORY: Microscopic poly angitis , IDDM(prednisone), HTN,Chronic venous stasis ulcer B/L LE ulcer.PMR,Hypothyroidism. PAST SURGICAL HISTORY:SBO 1971, Thyroidectomy 2009 Social History: Smoking:quit 30 years ago.she smoke for 5 years as teenage Alcohol:sochially Drugs: never Family History: Allergies Sulfa (Sulfonamide Antibiotics) Allergy (Severe, Verified 05/10/17 15:14) "TONGUE SWELLED" HOME MEDICATIONS: Home Medications Medication Instructions Recorded Levothyroxine [Synthroid -] 100 mcg PO DAILY 03/23/14 Hydralazine HCl [Apresoline -] 25 mg PO BID #60 tablet 04/25/17 Prednisone [Deltasone -] 40 mg PO BID #60 tablet 04/25/17 Aspirin Coated [Ecotrin -] 81 mg PO DAILY #30 tab 04/27/17 Alcohol Antiseptic Pads [Caretouch 1 each ACHS #1 box 04/29/17 Alcohol Prep Pad] Insulin (Levemir) [Levemir Flexpen 8 units SQ BID #1 pen 04/29/17 -] Insulin Aspart [Novolog Flexpen] 2 unit SQ ACHS #1 insuln.pen 04/29/17 Lancets/Blood Glucose Strips [Fora 1 each MC ACHS #1 box 04/29/17 [id number] Strp-Lnct] Miscellaneous Medical Supply 1 each SQ ASDIR #1 kit 04/29/17 [Glucometer Device] Miscellaneous Medical Supply 1 each SQ ASDIR #1 box 04/29/17 [Glucometer Test Strips #100] [place], Safety [Easy Touch 1 each MC ACHS #1 box 04/29/17 Fliplock Needle] Valacyclovir HCl [Valtrex -] 500 mg PO BID #60 tablet 04/29/17 REVIEW OF SYSTEMS CONSTITUTIONAL: Absent: fever, chills, diaphoresis, generalized weakness, malaise, loss of appetite, weight change HEENT: Absent: rhinorrhea, nasal congestion, throat pain, throat swelling, difficulty swallowing, mouth swelling, ear pain, eye pain, visual changes CARDIOVASCULAR: Absent: chest pain, syncope, palpitations, irregular heart rate, lightheadedness , peripheral edema RESPIRATORY: Absent: cough, shortness of breath, dyspnea with exertion, orthopnea, wheezing, stridor, hemoptysis GASTROINTESTINAL: Absent: abdominal pain, abdominal distension, nausea, vomiting, diarrhea, constipation, melena, hematochezia GENITOURINARY: Absent: dysuria, frequency, urgency, hesitancy, hematuria, flank pain, genital pain MUSCULOSKELETAL: Absent: myalgia, arthralgia, joint swelling, back pain, neck pain SKIN: Absent: rash, itching, pallor HEMATOLOGIC/IMMUNOLOGIC: Absent: easy bleeding, easy bruising, lymphadenopathy, frequent infections ENDOCRINE: Absent: unexplained weight gain, unexplained weight loss, heat intolerance, cold intolerance NEUROLOGIC: Absent: headache, focal weakness or paresthesias, dizziness, unsteady gait, seizure, mental status changes, bladder or bowel incontinence PSYCHIATRIC: Absent: anxiety, depression, suicidal or homicidal ideation, hallucinations. PHYSICAL EXAMINATION Vital Signs - 24 hr 05/10/17 15:14 Temperature 98.0 F Pulse Rate 105 H Respiratory 20 Rate Blood Pressure 176/99 O2 Sat by Pulse 94 L Oximetry (%) GENERAL: Awake, alert, and fully oriented, in no acute distress. HEAD: Normal with no signs of trauma. EYES: sclera anicteric, conjunctiva clear. ENT: Moist mucous membranes. LUNGS: Breath sounds equal, clear to auscultation bilaterally. No wheezes, and no crackles. No accessory muscle use. HEART: Regular rate and rhythm, normal S1 and S2 without murmur, rub or gallop. ABDOMEN: Soft, nontender, not distended, normoactive bowel sounds, no guarding, no rebound, MUSCULOSKELETAL: Normal range of motion at all joints. No bony deformities or tenderness. No CVA tenderness. UPPER EXTREMITIES: warm, well-perfused. No cyanosis. No clubbing. No peripheral edema. LOWER EXTREMITIES: warm, well-perfused. No calf tenderness. No peripheral edema. NEUROLOGICAL: good mentation PSYCHIATRIC: Cooperative. Good eye contact. Appropriate mood and affect. SKIN: Warm, dry, normal turgor, no rashes or lesions noted, Laboratory Results - last 24 hr 05/10/17 05/10/17 05/10/17 16:00 16:00 16:00 WBC 12.6 H RBC 3.17 L Hgb 9.5 L D Hct 28.2 L MCV 89.1 MCH 29.9 MCHC 33.6 RDW 24.5 H D Plt Count 84 L D MPV 9.2 Total Counted 100 Neutrophils % No Result Required. Neutrophils % (Manual) 95 H* Lymphocytes % No Result Required. Lymphocytes % (Manual) 4 L D Monocytes % (Manual) 1 L Platelet Estimate Decreased PT with INR 11.90 H INR 1.05 PTT (Actin FS) 20.2 L Sodium 139 Potassium 4.5 Chloride 102 Carbon Dioxide 25 Anion Gap 12 BUN 68 H Creatinine 2.5 H Creat Clearance w eGFR 18.72 Random Glucose 291 H D Calcium 8.1 L Magnesium 2.1 Total Bilirubin 1.3 H D AST 25 D ALT 29 D Alkaline Phosphatase 79 Total Protein 6.3 L Albumin 3.5 Urine Color Urine Appearance Urine pH Urine Protein Urine Glucose (UA) Urine Ketones Urine Blood Urine Nitrite Urine Bilirubin Urine Urobilinogen Urine RBC Urine WBC Ur Epithelial Cells Urine Bacteria Blood Type Antibody Screen Spec Expiration Date 05/10/17 05/10/17 16:00 17:15 WBC RBC Hgb Hct MCV MCH MCHC RDW Plt Count MPV Total Counted Neutrophils % Neutrophils % (Manual) Lymphocytes % Lymphocytes % (Manual) Monocytes % (Manual) Platelet Estimate PT with INR INR PTT (Actin FS) Sodium Potassium Chloride Carbon Dioxide Anion Gap BUN Creatinine Creat Clearance w eGFR Random Glucose Calcium Magnesium Total Bilirubin AST ALT Alkaline Phosphatase Total Protein Albumin Urine Color Ltyellow Urine Appearance Slcloudy Urine pH 6.0 Urine Protein 2+ H Urine Glucose (UA) 3+ H Urine Ketones Negative Urine Blood 3+ H Urine Nitrite Positive Urine Bilirubin Negative Urine Urobilinogen Negative Urine RBC 197 Urine WBC 15 Ur Epithelial Cells Rare Urine Bacteria Moderate Blood Type Cancelled Antibody Screen Cancelled Spec Expiration Date Cancelled ASSESSMENT/PLAN: Patient is a 77 y.o. female with a PMH of recently diagnosed microscopic polyangitis (on Rituximab 3/ treatment, last treatment 05/08), IDDM 2/2 to Predisone use, HTN, chronic venous stasis LE ulcer, polymyalgia rheumatic and hypothroidism who presents today following an isolated episode of hemoptysis.was admitted for further evaluation and treatment # Hemoptysis * CXR, CT chest reviewed * Continue same management Prednisone and Rituximab * consult pulm * consult renal * Consult rheumatology * blood cx , UA, Urine cx * # Tenia pedis * chlotrimazole ceam topicl * # B/L leg ulcer * covered by gauze * follow up as out patient * right thigh callus ulcer . * # HTN * continue home meds * Add Norvasc one dose 10 mg * follow BP day team . * # IDDM, due to steroids * Levemir 8 units + sliding scale * BGM * ISS * # Oral thrush * continue valacyclovir * #FEN : * Moderate risk, hold AC for now * E to continue to monitor * D: low sodium diabetic diet #proph * Hold AC due to possible procedure * GI: No need for now * # Dispo * Admit to med surge * * Visit type - Emergency Visit Emergency Visit: Yes ED Registration Date: 05/12/17 Care time: The patient presented to the Emergency Department on the above date and was hospitalized for further evaluation of their emergent condition. - New Patient This patient is new to me today: Yes Date on this admission: 05/12/17 - Critical Care Critical Care patient: No
[2017-05-10 20:50] LABS: URINE LEUK ESTERASE Negative (NEGATIVE)
[2017-05-10] MEDS ORDERED: amLODIPine BESYLATE 10 MG TABLET (FP) PO ONE (22:31)
[2017-05-10] MEDS ORDERED: VANCOMYCIN 1,000 MG in DEXTROSE 5%-WATER - 250 ML IVPB ONE (22:33)
[2017-05-10] MEDS ORDERED: PIPERACIL/TAZOB 3.375 GM 3.375 GM/50 ML PREMIX IVPB ONE (22:34)
--- NOTE | 2017-05-10 22:50 | PN ---
Teaching Attending Note Name of Resident: Umair Mg ATTENDING PHYSICIAN STATEMENT I saw and evaluated the patient. I reviewed the resident's note and discussed the case with the resident. I agree with the resident's findings and plan as documented. SUBJECTIVE: patient presented to the hospital for hemoptysis, she denied any fever or chills stated she is doing well after she has started the rituximab and prednisone for vasculitis OBJECTIVE: AAOX3 s1 and S2 lungs CTA with good air entry, tympanic percussion bilateral wound on the shins bullos noted on the right thigh that has been drained abdomen soft non-tender with positive bowel sounds ASSESSMENT AND PLAN: admit patient to observation for hemoptysis consult renal morning consult pulmonary in the morning repeat electroplytes inslin sliding scale obtain blood cultures if the patient spike fever and start the patient on vancomycin and pipercillen/tazobactam start the patient on amlodipine 10mg daily for BP consider starting the patient on ACEI/ARB for CKD after discussion with renal repeat labs in the morning avoid nephrotoxic agents hold anticoagluation will consider d/c home if the patient is cleared by pulmonary start the patient on clotrimazole 1% for tinea pedis
[2017-05-10] MEDS: hydrALAZINE HCL 25 MG TABLET (FP) PO SCH (23:37)
[2017-05-10] MEDS: INSULIN DETEMIR 100 UNITS/ML MDV SQ SCH (23:41)
[2017-05-11 00:59] VITALS: BMI 26.6
[2017-05-11] MEDS: INSULIN SLIDING SCALE (NOVOLOG) 1 VIAL SQ SCH ×4 (06:24→21:51)
[2017-05-11] MEDS: LEVOTHYROXINE NA 100 MCG TABLET (FP) PO SCH (06:24)
[2017-05-11] MEDS: INSULIN DETEMIR 100 UNITS/ML MDV SQ SCH ×2 (06:25→21:51)
[2017-05-11 08:48] LABS: BASOPHIL 0.2 % (0-2.0); EOSINOPHIL 0.5 % (0-4.5); MCH 29.8 pg (25.7-33.7); MCHC 33.3 g/dl (32.0-36.0); MEAN CELL VOLUME 89.5 fl (80-96); MEAN PLT VOLUME 9.6 fl (7.5-11.1); NEUTROPHILS 90.1 % (42.8-82.8); PLATELET COUNT 67 K/MM3 (134-434); RDW 24.3 % (11.6-15.6); WHITE BLOOD COUNT 8.8 K/mm3 (4.0-10.0)
--- NOTE | 2017-05-11 08:50 | PN ---
Physical Exam: SUBJECTIVE: Patient seen and examined at the bedside. She denies any further episodes of hemoptysis. OBJECTIVE: Patient now on Prednisone 60mg once per day, then Prednisone 40mg once per day until next visit with Dr. Concepcion Patient has received 3/4 weekly dose of Rituxan Vital Signs Period Temp Pulse Resp BP Sys/Horn Pulse Ox Last 24 Hr 98.4 F 83-94 18-18 153-171/73-95 93-95 GENERAL: The patient is awake, alert, and fully oriented, in no acute distress, mild hand tremors likely secondary to prednisone use HEAD: Normal with no signs of trauma. EYES: PERRL, extraocular movements intact, sclera anicteric, conjunctiva clear. No ptosis. ENT: Ears normal, nares patent, oropharynx clear without exudates, moist mucous membranes. NECK: Trachea midline, full range of motion, supple. LUNGS: Breath sounds equal, clear to auscultation bilaterally, no wheezes, no crackles, no accessory muscle use. HEART: Regular rate and rhythm ABDOMEN: Soft, nontender, nondistended, normoactive bowel sounds, no guarding, no rebound, no hepatosplenomegaly, no masses. EXTREMITIES: 2+ pulses, warm, well-perfused, no edema. NEUROLOGICAL: Normal speech, gait not observed. PSYCH: Normal mood, normal affect. SKIN: Bilateral lower ext ulcers, not viewed, dressing intact Laboratory Results - last 24 hr 05/10/17 05/11/17 05/11/17 23:39 06:00 06:22 WBC 8.8 D RBC 2.54 L Hgb 7.6 L D Hct 22.7 L D MCV 89.5 MCH 29.8 MCHC 33.3 RDW 24.3 H Plt Count 67 L D MPV 9.6 Neutrophils % 90.1 H Lymphocytes % 6.3 L D Monocytes % 2.9 L Eosinophils % 0.5 D Basophils % 0.2 POC Glucometer 355 158 Active Medications Generic Name Dose Route Start Last Admin Trade Name Freq PRN Reason Stop Dose Admin Clotrimazole 1 applic 05/11/17 10:00 Lotrisone Cream (Small Tube) TP BID MILES Hydralazine HCl 25 mg 05/10/17 22:30 05/10/17 23:37 Apresoline - PO 25 mg BID MILES Administration Insulin Aspart 1 vial 05/11/17 07:00 05/11/17 06:24 Novolog Vial Sliding Scale - SQ Not Given [facility] Protocol Insulin Detemir 8 units 05/10/17 22:45 05/11/17 06:25 Levemir Vial SQ 8 units BID@07,22 MILES Administration Levothyroxine Sodium 100 mcg 05/11/17 07:00 05/11/17 06:24 Synthroid - PO 100 mcg DAILY@0700 MILES Administration Prednisone 60 mg 05/11/17 10:00 Deltasone - PO DAILY MILES Valacyclovir HCl 500 mg 05/11/17 10:00 Valtrex - PO BID [facility] ASSESSMENT/PLAN: Patient is an 77 year-old female with a significant past medical history of HTN , chronic venous stasis lower extremity ulcers, polymyaglia rheumatica, and hypothyroidism. She presents to the hospital on 05/10/17 with an isolated episode of hemoptysis. Patient was recently admitted here between 04/09 > 04/29 for bilateral lower extremity cellulitis and MYRTLE. During last admission she was diagnosed with microscopic polyangitis and is currently on Rituxan and has received 3/4 doses. Pulmonary: Hemoptysis, acute on chronic Will quantify amt of hemoptysis Monitor cbc, which is currently low, will repeat CBC Lungs clear to auscultation Duonebs Humidified oxygen Pulm following 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 She is on Rituxan weekly and has received 3/4 doses On Prednisone 60mg for 1 week, then Prednisone 40mg weekly as per stations superintendent Renal: Chronic Kidney Disease, acute on chronic Creatinine 2.3, similar to last admission Renal following Endocrine: Hypothyroidism A/P: On home dose of Synthroid of 100mcgs Continue current dose Hyperglycemia, likely steroid induced A/p: Levemir and Novolog, BGMs Hematology: Anemia, acute on chronic Repeat CBC, transfuse if hmg <7 or symptomatic Stool for occult blood ordered Prophylaxis: DVT: None secondary to hemoptysis, SCDs contraindicated for painful LE ulcers GI: Protonix while on steriods Dispo: OBS patient. full code. Visit type - Emergency Visit Emergency Visit: Yes ED Registration Date: 05/10/17 Care time: The patient presented to the Emergency Department on the above date and was hospitalized for further evaluation of their emergent condition. - New Patient This patient is new to me today: Yes Date on this admission: 05/11/17 - Critical Care Critical Care patient: No - Discharge Referral Referred to [facility] No
[2017-05-11 09:22] LABS: ALBUMIN 2.7 g/dl (3.4-5.0); ALK PHOS 59 U/L (45-117); ANION GAP 9 (8-16); BILIRUBIN,TOTAL 0.8 mg/dL (0.2-1.0); CO2 25 mmol/L (21-32); CREATININE 2.3 mg/dL (0.55-1.02); GLUCOSE,RANDOM 136 mg/dL (74-106); SGOT/AST 10 U/L (15-37); SGPT/ALT 21 U/L (12-78); TOT PROT 5.2 g/dl (6.4-8.2)
[2017-05-11] MEDS ORDERED: predniSONE 20 MG TABLET (UD) PO SCH ×2 (10:00)
[2017-05-11] MEDS: valACYclovir HCL 500 MG TABLET (FP) PO SCH ×2 (10:46→21:51)
[2017-05-11] MEDS: hydrALAZINE HCL 25 MG TABLET (FP) PO SCH ×2 (10:47→21:50)
--- NOTE | 2017-05-11 11:20 | CON.NEP ---
Consult Consult Specialty:: nephrology Reason for Consultation:: ckd - History of Present Illness Chief Complaint: hemoptysis History of Present Illness: THis is a 77 year old woman who is well known to me, with recent diagnosis of MPA, presents with hemoptysis. She was admitted a month ago for similar presentation and was diagnosed with MPA by biopsy and serology. She was started on rituximab and has had 3 doses already. She has been well. Yesterday she coughed and had a small amount of blood in the sputum. She was then toldf to come to the [facility] for evaluation. She has no fever or chills. Has been on prednisone. Has no problems urinating and still has dressings on her legs for ulcers. - History Source History Provided By: Patient, Medical Record Limitations to Obtaining History: No Limitations - Past Medical History Cardio/Vascular: Yes: HTN Pulmonary: Yes: Pneumonia Renal/: Yes: Renal Inusuff Rheumatology: Yes: Vasculitis, Other (Polymyalgia rheumatica) Endocrine: Yes: Hypothyroidism Dermatology: Yes: Other (open LE wounds) - Alcohol/Substance Use Hx Alcohol Use: No - Smoking History Smoking history: Never smoked Have you smoked in the past 12 months: No If you are a former smoker, when did you quit?: 30 years ago Home Medications - Allergies Allergies/Adverse Reactions: Allergies Allergy/AdvReac Type Severity Reaction Status Date / Time Sulfa (Sulfonamide Allergy Severe Verified 05/10/17 15:14 Antibiotics) - Home Medications Home Medications: Ambulatory Orders Levothyroxine [Synthroid -] 100 mcg PO DAILY 03/23/14 Hydralazine HCl [Apresoline -] 25 mg PO BID #60 tablet 04/25/17 Prednisone [Deltasone -] 40 mg PO BID #60 tablet 04/25/17 Aspirin Coated [Ecotrin -] 81 mg PO DAILY #30 tab 04/27/17 Alcohol Antiseptic Pads [Caretouch Alcohol Prep Pad] 1 each TP ACHS #1 box 04/29 Insulin (Levemir) [Levemir Flexpen -] 8 units SQ BID #1 pen 04/29/17 Insulin Aspart [Novolog Flexpen] 2 unit SQ ACHS #1 insuln.pen 04/29/17 Lancets/Blood Glucose Strips [Fora [id number] Strp-Lnct] 1 each MC ACHS #1 box 04/29/17 Miscellaneous Medical Supply [Glucometer Device] 1 each SQ ASDIR #1 kit Miscellaneous Medical Supply [Glucometer Test Strips #100] 1 each SQ ASDIR #1 box 04/29/17 [place], Safety [Easy Touch Fliplock Needle] 1 each ACHS #1 box 04/29/17 Valacyclovir HCl [Valtrex -] 500 mg PO BID #60 tablet 04/29/17 Family Disease History - Family Disease History Family Disease History: Diabetes: Mother, Brother Review of Systems - Review of Systems Constitutional: reports: Weakness Eyes: reports: No Symptoms HENT: reports: No Symptoms Neck: reports: No Symptoms Cardiovascular: reports: Shortness of Breath Respiratory: reports: Cough Gastrointestinal: reports: No Symptoms Genitourinary: reports: No Symptoms Breasts: reports: No Symptoms Reported Musculoskeletal: reports: No Symptoms Integumentary: reports: Lesions Neurological: reports: No Symptoms Endocrine: reports: No Symptoms Hematology/Lymphatic: reports: No Symptoms Psychiatric: reports: No Symptoms Nephrology Consult - Height Height: 5 ft 7 in - Weight Weight: 170 lb 2 oz - BMI Body Mass Index (BMI): 26.6 - Lab Results CBC,BMP: CBC, BMP 05/11/17 06:00 05/11/17 06:00 Anion Gap: Anion Gap Anion Gap 9 (8-16) 05/11/17 06:00 - Imaging Chest X-ray: Report Reviewed (bilateral infiltrates) - Physical Examination Vital Signs: Vital Signs Temperature 98.4 F 05/11/17 06:00 Pulse Rate 83 05/11/17 06:00 Respiratory Rate 18 05/11/17 06:00 Blood Pressure 153/73 05/11/17 06:00 O2 Sat by Pulse Oximetry (%) 95 05/11/17 06:22 Constitutional: Yes: Well Nourished, No Distress, Calm Eyes: Yes: Conjunctiva Clear, EOM Intact HENT: Yes: Atraumatic, Normocephalic Neck: Yes: Supple, Trachea Midline Cardiovascular: Yes: Regular Rate and Rhythm Respiratory: Yes: Diminished, Wheezes, Other (wheeze heard mainly at left base) Gastrointestinal: Yes: Normal Bowel Sounds Renal/: Yes: WNL Musculoskeletal: Yes: WNL Extremities: Yes: WNL, Other (has bilateral dressings) Edema: No Peripheral Pulses WNL: Yes Integumentary: Yes: WNL Wound/Incision: Yes: Clean/Dry Psychiatric: Yes: WNL Problem List - Problems (1) Hemoptysis Code(s): R04.2 - HEMOPTYSIS (2) Vasculitis Code(s): I77.6 - ARTERITIS, UNSPECIFIED (3) Venous stasis of both lower extremities Code(s): I87.8 - OTHER SPECIFIED DISORDERS OF VEINS Assessment/Plan IMPRESSION Pt has diagnosed microscopic polyangiitis. Currently on rituximab. Now presents with mild hemoptysis. She is also anemic probably from chronic disease and CKD. PLAN would recommend repeat CT scan of abdomen continue rituxan to complete course would plasmapharese... will discuss with Dr Concepcion would consider annabel inhibition and discontinuation of hydralazine MV
--- NOTE | 2017-05-11 11:57 | CON.PULM ---
Consult Consult Specialty:: PULMONARY Referred by:: PMD Reason for Consultation:: HEMOPTYSIS - History of Present Illness Chief Complaint: HEMOPTYSIS History of Present Illness: Patient is a 77 y.o. 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 Presently feels well and has not had an episode of hemoptysis since admission. She is complaining of constipation and leg numbness. - History Source History Provided By: Patient, Medical Record Limitations to Obtaining History: No Limitations - Past Medical History [employer]: No: Alzheimer's Cardio/Vascular: Yes: HTN. No: AFIB Pulmonary: Yes: Pneumonia, Other (hemoptysis). No: Asthma Gastrointestinal: No: Ascites Hepatobiliary: No: Cirrhosis Renal/: Yes: Renal Inusuff. No: Hematuria Heme/Onc: Yes: Anemia Rheumatology: Yes: Vasculitis, Other (Polymyalgia rheumatica) Endocrine: Yes: Diabetes Mellitus, Hypothyroidism Dermatology: Yes: Other (open LE wounds) - Past Surgical History Additional Surgical History: kidney biopsy - Alcohol/Substance Use Hx Alcohol Use: No - Smoking History Smoking history: Never smoked Have you smoked in the past 12 months: No If you are a former smoker, when did you quit?: 30 years ago Home Medications - Allergies Allergies/Adverse Reactions: Allergies Allergy/AdvReac Type Severity Reaction Status Date / Time Sulfa (Sulfonamide Allergy Severe Verified 05/10/17 15:14 Antibiotics) - Home Medications Home Medications: Ambulatory Orders Levothyroxine [Synthroid -] 100 mcg PO DAILY 03/23/14 Hydralazine HCl [Apresoline -] 25 mg PO BID #60 tablet 04/25/17 Prednisone [Deltasone -] 40 mg PO BID #60 tablet 04/25/17 Aspirin Coated [Ecotrin -] 81 mg PO DAILY #30 tab 04/27/17 Alcohol Antiseptic Pads [Caretouch Alcohol Prep Pad] 1 each TP ACHS #1 box 04/29 Insulin (Levemir) [Levemir Flexpen -] 8 units SQ BID #1 pen 04/29/17 Insulin Aspart [Novolog Flexpen] 2 unit SQ ACHS #1 insuln.pen 04/29/17 Lancets/Blood Glucose Strips [Fora [id number] Strp-Lnct] 1 each ACHS #1 box 04/29/17 Miscellaneous Medical Supply [Glucometer Device] 1 each SQ ASDIR #1 kit Miscellaneous Medical Supply [Glucometer Test Strips #100] 1 each SQ ASDIR #1 box 04/29/17 [place], Safety [Easy Touch Fliplock Needle] 1 each ACHS #1 box 04/29/17 Valacyclovir HCl [Valtrex -] 500 mg PO BID #60 tablet 04/29/17 Family Disease History - Family Disease History Family Disease History: Diabetes: Mother, Brother Review of Systems - Review of Systems Constitutional: denies: Fever, Loss of Appetite Eyes: denies: Blurred Vision HENT: denies: Difficult Swallowing Neck: denies: Decreased ROM Cardiovascular: denies: Chest Pain Respiratory: reports: Cough, Hemoptysis. denies: SOB on Exertion, Wheezing Gastrointestinal: denies: Abdominal Pain Genitourinary: denies: Burning Breasts: reports: No Symptoms Reported Musculoskeletal: reports: Other (leg numbness) Integumentary: reports: Wound (b/l lower ext) Physical Exam Vital Sings: Vital Signs Temperature 98.4 F 05/11/17 06:00 Pulse Rate 83 05/11/17 06:00 Respiratory Rate 18 05/11/17 06:00 Blood Pressure 153/73 05/11/17 06:00 O2 Sat by Pulse Oximetry (%) 95 05/11/17 06:22 Constitutional: Yes: Calm Eyes: Yes: EOM Intact HENT: Yes: Normocephalic Neck: Yes: Trachea Midline Cardiovascular: Yes: Regular Rate and Rhythm, S1, S2 Respiratory: Yes: Rales (left posterior mid zone) ...Inspection: Yes: WNL Gastrointestinal: Yes: WNL Edema: LLE: 2+, RLE: 2+ Integumentary: Yes: Venous Stasis Changes, Other (ulcers) Labs: CBC, BMP 05/11/17 06:00 05/11/17 06:00 rest reviewed Imaging - Results Chest X-ray: Report Reviewed, Image Reviewed Problem List - Problems (1) Hemoptysis Code(s): R04.2 - HEMOPTYSIS (2) Acute kidney injury Code(s): N17.9 - ACUTE KIDNEY FAILURE, UNSPECIFIED (3) Bilateral pulmonary infiltrates on chest x-ray Code(s): R91.8 - OTHER NONSPECIFIC ABNORMAL FINDING OF LUNG FIELD Assessment/Plan QUANTITATE AMOUNT OF HEMOPTYSIS INFILTRATES LIKELY DUE TO ABOVE CONTINUE PREDNISONE/RITUXIMAB BRONCHODILATORS/O2 TO KEEP SAT GREATER THAN 90% WILL FOLLOW Nisa MAYS MD
[2017-05-11 12:41] LABS: BASOPHIL 0.4 % (0-2.0); EOSINOPHIL 0.3 % (0-4.5); MCH 29.2 pg (25.7-33.7); MEAN CELL VOLUME 88.3 fl (80-96); MEAN PLT VOLUME 8.6 fl (7.5-11.1); NEUTROPHILS 95.7 % (42.8-82.8); PLATELET COUNT 79 K/MM3 (134-434); WHITE BLOOD COUNT 13.6 K/mm3 (4.0-10.0)
[2017-05-11] MEDS ORDERED: ALBUTEROL SO4 2.5/IPRATROPIUM 0.5 INH SOL 3 ML VIAL.NEB. NEB PRN (12:45)
--- NOTE | 2017-05-11 13:09 | EKG ---
Test Reason : Blood Pressure : / mmHG Vent. Rate : 072 BPM Atrial Rate : 072 BPM P-R Int : 136 ms QRS Dur : 086 ms QT Int : 362 ms P-R-T Axes : 047 -36 039 degrees QTc Int : 396 ms SINUS RHYTHM WITH SINUS ARRHYTHMIA WITH OCCASIONAL PREMATURE VENTRICULAR COMPLEXES LEFT AXIS DEVIATION VOLTAGE CRITERIA FOR LEFT VENTRICULAR HYPERTROPHY ABNORMAL ECG WHEN COMPARED WITH ECG OF 17-APR-2017 08:57, PREMATURE VENTRICULAR COMPLEXES ARE NOW PRESENT VENT. RATE HAS INCREASED BY 29 BPM QT HAS SHORTENED CLINICAL CORRELATION IS RECOMMENDED Confirmed by LESTER KUO, SAMRA ([id number]) on 05/11/2017 1:09:11 PM Referred By: Confirmed By:SAMRA BATISTA MD
[2017-05-11] MEDS: PANTOPRAZOLE 40 MG TABLET (FP) PO SCH (17:10)
[2017-05-11] MEDS ORDERED: POLYETHYLENE GLYCOL 3350 119 GM BTL PO ONE (17:40)
[2017-05-11] MEDS ORDERED: INSULIN (NOVOLOG) ASPART 100 UNITS/ML 10ML VIAL ONE (21:46)
[2017-05-11] MEDS: DOCUSATE SODIUM 100 MG CAPSULE (FP) PO SCH (21:50)
[2017-05-11] MEDS: CLOTRIMAZOLE/BETAMET DIPROP 15 GM TUBE TP SCH (22:00)
--- NOTE | 2017-05-11 22:36 | CONSULT ---
Consult Consult Specialty:: Rheumatology - History of Present Illness History of Present Illness: 77 year old female with PMHx of borderline hypertension, polymyalgia rheumatica and hypothyroidism, admitted one month ago with active microscopic polyangiitis and admitted this time with recurrent hemoptysis. HPI. The patient was admitted on 04/09/17 with history of ulcers in legs, shortness of breath and hemoptysis. A CT scan of the chest was reported with multifocal consolidation opacities in bilateral upper lobes, R>L, right middle lobe and left lower lobe and very small pleural effusions, L>R. Air bronchograms and mediastinal and right hilar lymphadenopathy. Creatinine increased from 1.6 to 2.1. UA revealed protein 2+, blood 3+, hyaline casts 1 and granular casts 8. KEELEY was 1:320 with homogeneous and nuclear patterns, P- ANCA 1:160 and myeloperoxidase >100. Anti-DNAds was negative and complement was normal. 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 The patient was treated with IV pulse steroids, 1 gr/ day for 3 days and then started on Rituximab 375 mg/m2 once per week. She received 3 doses and is scheduled to receive one more dose. Since discharge she has been on Prednisone 40 mg BID. In the present admission the patient reports she had one episode of mild hemoptysis yesterday and one more today. She reports malaise and weakness and denies shortness of breath, chest pain, abdominal pain, fever, skin rash or joint pain. Since admission she has not have fever. Creatinine 2.3 and urinalysis with protein 2+, blood 3+ and glucose 3+. CXR reported with patchy infiltrates within the left mid lung and RLL. 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 No: AFIB Pulmonary: Yes: Pneumonia, Other (hemoptysis). No: Asthma Gastrointestinal: No: Ascites Hepatobiliary: No: Cirrhosis Renal/: Yes: Renal Inusuff. No: Hematuria Rheumatology: Yes: Vasculitis, Other (Polymyalgia rheumatica) Endocrine: Yes: Diabetes Mellitus, Hypothyroidism Dermatology: Yes: Other (open LE wounds) - Past Surgical History Additional Surgical History: kidney biopsy - Alcohol/Substance Use Hx Alcohol Use: No - Smoking History Smoking history: Never smoked Have you smoked in the past 12 months: No If you are a former smoker, when did you quit?: 30 years ago Home Medications - Allergies Allergies/Adverse Reactions: Allergies Allergy/AdvReac Type Severity Reaction Status Date / Time Sulfa (Sulfonamide Allergy Severe Verified 05/10/17 15:14 Antibiotics) - Home Medications Home Medications: Ambulatory Orders Levothyroxine [Synthroid -] 100 mcg PO DAILY 03/23/14 Hydralazine HCl [Apresoline -] 25 mg PO BID #60 tablet 04/25/17 Prednisone [Deltasone -] 40 mg PO BID #60 tablet 04/25/17 Aspirin Coated [Ecotrin -] 81 mg PO DAILY #30 tab 04/27/17 Alcohol Antiseptic Pads [Caretouch Alcohol Prep Pad] 1 each TP ACHS #1 box 04/29 Insulin (Levemir) [Levemir Flexpen -] 8 units SQ BID #1 pen 04/29/17 Insulin Aspart [Novolog Flexpen] 2 unit SQ ACHS #1 insuln.pen 04/29/17 Lancets/Blood Glucose Strips [Fora [id number] Strp-Lnct] 1 each MC ACHS #1 box 04/29/17 Miscellaneous Medical Supply [Glucometer Device] 1 each SQ ASDIR #1 kit Miscellaneous Medical Supply [Glucometer Test Strips #100] 1 each SQ ASDIR #1 box 04/29/17 [place], Safety [Easy Touch Fliplock Needle] 1 each MC ACHS #1 box 04/29/17 Valacyclovir HCl [Valtrex -] 500 mg PO BID #60 tablet 04/29/17 Family Disease History - Family Disease History Family Disease History: Diabetes: Mother, Brother Review of Systems - Review of Systems Constitutional: reports: Malaise, Weakness Eyes: reports: No Symptoms HENT: reports: No Symptoms Neck: reports: No Symptoms Cardiovascular: reports: No Symptoms Respiratory: reports: Hemoptysis Gastrointestinal: reports: No Symptoms Musculoskeletal: reports: No Symptoms Physical Exam Vital Signs: Vital Signs Temperature 97.9 F 05/11/17 17:32 Pulse Rate 70 05/11/17 17:32 Respiratory Rate 18 05/11/17 17:32 Blood Pressure 158/94 05/11/17 17:32 O2 Sat by Pulse Oximetry (%) 94 L 05/11/17 14:00 Constitutional: Yes: Mild Distress Eyes: Yes: WNL HENT: Yes: WNL Neck: Yes: WNL Cardiovascular: Yes: WNL Respiratory: Yes: WNL Gastrointestinal: Yes: WNL Musculoskeletal: Yes: WNL Integumentary: Yes: Other (Ulcers in both legs.) Labs: CBC, BMP 05/11/17 12:30 05/11/17 06:00 Laboratory Tests 05/10/17 05/11/17 17:15 06:00 Calcium 8.0 L Total Bilirubin 0.8 D AST 10 L D ALT 21 D Alkaline Phosphatase 59 D Total Protein 5.2 L Albumin 2.7 L D Urine Color Ltyellow Urine Appearance Slcloudy Urine pH 6.0 Ur Specific [place] 1.015 Urine Protein 2+ H Urine Glucose (UA) 3+ H Urine Ketones Negative Urine Blood 3+ H Urine Nitrite Positive Urine Bilirubin Negative Urine Urobilinogen Negative Ur Leukocyte Esterase Negative Problem List - Problems (1) Microscopic polyangiitis Assessment/Plan: Hemoptysis, pauci-immune glomerulonephritis and leg ulcers. Treated with pulse steroids and Rituximab (Bruno protocol) with no adequate response. Progression in creatinine elevation, no improvement in urinary sediment and relapse hemoptysis. As per discussion with Dr. Rodrigues, I suggest to start plasmapheresis and continue with Rituximab (she is schedules to receive one more dose). Hematology consult, and I will discuss treatment with Pulmonary. Code(s): M31.7 - MICROSCOPIC POLYANGIITIS
[2017-05-12] MEDS ORDERED: INSULIN (NOVOLOG) ASPART 100 UNITS/ML 10ML VIAL ONE ×2 (06:03→17:25)
[2017-05-12] MEDS: LEVOTHYROXINE NA 100 MCG TABLET (FP) PO SCH (06:13)
[2017-05-12] MEDS: INSULIN DETEMIR 100 UNITS/ML MDV SQ SCH ×2 (06:20→22:57)
[2017-05-12] MEDS: INSULIN SLIDING SCALE (NOVOLOG) 1 VIAL SQ SCH ×4 (06:20→22:56)
[2017-05-12 08:24] LABS: ALBUMIN 2.7 g/dl (3.4-5.0); ANION GAP 11 (8-16); BASOPHIL 0.2 % (0-2.0); BILIRUBIN,TOTAL 0.9 mg/dL (0.2-1.0); CALCIUM 7.6 mg/dL (8.5-10.1); CO2 24 mmol/L (21-32); CREATININE 2.3 mg/dL (0.55-1.02); EOSINOPHIL 0.2 % (0-4.5); GLUCOSE,RANDOM 114 mg/dL (74-106); MCH 29.6 pg (25.7-33.7); MCHC 33.8 g/dl (32.0-36.0); MEAN CELL VOLUME 87.7 fl (80-96); MEAN PLT VOLUME 8.9 fl (7.5-11.1); NEUTROPHILS 93.1 % (42.8-82.8); PLATELET COUNT 70 K/MM3 (134-434); RDW 24.2 % (11.6-15.6); SGOT/AST 7 U/L (15-37); SGPT/ALT 21 U/L (12-78); TOT PROT 5.1 g/dl (6.4-8.2); WHITE BLOOD COUNT 11.2 K/mm3 (4.0-10.0)
[2017-05-12 08:25] LABS: ALK PHOS 58 U/L (45-117)
[2017-05-12 08:47] LABS: URINE APPEARANCE SLCLOUDY; URINE BILIRUBIN NEGATIVE (NEGATIVE); URINE BLOOD 3+ (NEGATIVE); URINE COLOR YELLOW; URINE GLUCOSE (UA) NEGATIVE (NEGATIVE); URINE KETONE NEGATIVE (NEGATIVE); URINE NITRITE NEGATIVE (NEGATIVE); URINE UROBILINOGEN NEGATIVE mg/dL (0.2-1.0)
[2017-05-12 08:58] LABS: URINE PROTEIN 2+ (NEGATIVE)
[2017-05-12] MEDS ORDERED: PT OWN MED DRAWER 7, Y5N ONE ×3 (09:02→22:27)
[2017-05-12 09:08] LABS: GRANULAR CASTS 3 /lpf; URINE BACTERIA RARE /hpf (NONE SEEN); URINE RBC 119 /hpf (0-3); URINE WBC 27 /hpf (3-5)
[2017-05-12] MEDS: hydrALAZINE HCL 25 MG TABLET (FP) PO SCH ×2 (09:10→22:55)
[2017-05-12] MEDS: DOCUSATE SODIUM 100 MG CAPSULE (FP) PO SCH ×2 (09:10→22:56)
[2017-05-12] MEDS: PANTOPRAZOLE 40 MG TABLET (FP) PO SCH (09:10)
[2017-05-12] MEDS: valACYclovir HCL 500 MG TABLET (FP) PO SCH ×2 (09:11→22:56)
[2017-05-12] MEDS: predniSONE 20 MG TABLET (UD) PO SCH ×2 (09:11→22:56)
[2017-05-12] MEDS: CLOTRIMAZOLE/BETAMET DIPROP 15 GM TUBE TP SCH ×2 (09:13→22:57)
--- NOTE | 2017-05-12 10:42 | PN ---
Progress Note (short form) - Note Progress Note: RENAL Pt is awake and laert had more hemoptysis Last Vital Signs Temp Pulse Resp BP Pulse Ox 98.0 F 84 18 155/82 98 05/12/17 10:00 05/12/17 10:00 05/12/17 10:00 05/12/17 10:00 05/12/17 06:00 lungs rhonchi bilateral cvs s1s2 rr abd soft ext no edema neuro a+ox3 CBC, BMP 05/12/17 06:00 05/12/17 06:00 Current Medications Generic Name Dose Route Start Last Admin Trade Name Freq PRN Reason Stop Dose Admin Albuterol/Ipratropium 1 amp 05/11/17 12:45 Duoneb - NEB Q6H PRN SHORTNESS OF BREATH Clotrimazole 1 applic 05/11/17 10:00 05/12/17 09:13 Lotrisone Cream (Small Tube) TP 1 applic BID MILES Administration Docusate Sodium 100 mg 05/11/17 22:00 05/12/17 09:10 Colace - PO 100 mg BID MILES Administration Hydralazine HCl 25 mg 05/10/17 22:30 05/12/17 09:10 Apresoline - PO 25 mg BID MILSE Administration Insulin Aspart 1 vial 05/11/17 07:00 05/12/17 06:20 Novolog Vial Sliding Scale - SQ Not Given ACHS [facility] Protocol Insulin Detemir 8 units 05/10/17 22:45 05/12/17 06:20 Levemir Vial SQ Not Given BID@ MILES Levothyroxine Sodium 100 mcg 05/11/17 07:00 05/12/17 06:13 Synthroid - PO 100 mcg DAILY@0700 MILES Administration Pantoprazole Sodium 40 mg 05/11/17 13:00 05/12/17 09:10 Protonix - PO 40 mg DAILY MILES Administration Prednisone 40 mg 05/12/17 10:00 05/12/17 09:11 Deltasone - PO 40 mg BID MILES Administration Valacyclovir HCl 500 mg 05/11/17 10:00 05/12/17 09:11 Valtrex - PO 500 mg BID MILES Administration IMPRESSION microscopic polyangiitis now with hemoptysis PLAN discussed plan with Dr Concepcion Pt should have plasmapharesis, but she is reluctant to do it now. Wants to talk to her family first Can probably give her 60 mg of prednisone daily and not 40 bid MV Problem List - Problems (1) Hemoptysis Code(s): R04.2 - HEMOPTYSIS (2) Vasculitis Code(s): I77.6 - ARTERITIS, UNSPECIFIED (3) Venous stasis of both lower extremities Code(s): I87.8 - OTHER SPECIFIED DISORDERS OF VEINS
--- NOTE | 2017-05-12 11:59 | PN ---
Progress Note (short form) - Note Progress Note: PULMONARY LYING COMFORTABLY IN BED NO FURTHER HEMOPTYSIS SINCE ADMISSION HGB/PLTS ARE DECREASING VSS/AFEBRILE ANICTERIC SCATTERED MINIMAL EXP RHONCHI POSTERIOR S1S2 BS+ B/L KOWER EXT ULCERS BANDAGED LABS/MEDS/NOTES/IMAGES/MICRO REVIEWED HGB 7.9/PLTS 70K (1) Hemoptysis Code(s): R04.2 - HEMOPTYSIS (2) Acute kidney injury Code(s): N17.9 - ACUTE KIDNEY FAILURE, UNSPECIFIED (3) Bilateral pulmonary infiltrates on chest x-ray Code(s): R91.8 - OTHER NONSPECIFIC ABNORMAL FINDING OF LUNG FIELD Assessment/Plan QUANTITATE AMOUNT OF HEMOPTYSIS INFILTRATES LIKELY DUE TO ABOVE CONTINUE PREDNISONE/RITUXIMAB BRONCHODILATORS/O2 TO KEEP SAT GREATER THAN 90% MONITOR HGB/PLTS NORMAL TRANSFUSION THRESHOLD Nisa MAYS MD Problem List - Problems (1) Hemoptysis Code(s): R04.2 - HEMOPTYSIS (2) Acute kidney injury Code(s): N17.9 - ACUTE KIDNEY FAILURE, UNSPECIFIED (3) Bilateral pulmonary infiltrates on chest x-ray Code(s): R91.8 - OTHER NONSPECIFIC ABNORMAL FINDING OF LUNG FIELD
[2017-05-12 14:48] LABS: URINE LEUK ESTERASE TRACE (NEGATIVE)
--- NOTE | 2017-05-12 16:59 | PN ---
Physical Exam: SUBJECTIVE: Patient seen and examined at bedside. Had an episode of hemoptysis today, small amount of dark red sputum on a napkin at bedside. OBJECTIVE: Vital Signs Period Temp Pulse Resp BP Sys/Horn Pulse Ox Last 24 Hr 98.3 F 92 18 149/79 94 GENERAL: The patient is awake, alert, and fully oriented, in no acute distress. LUNGS: Breath sounds equal, clear to auscultation bilaterally, no wheezes, no crackles, no accessory muscle use. HEART: Regular rate and rhythm, S1, S2 without murmur, rub or gallop. ABDOMEN: Soft, nontender, nondistended, normoactive bowel sounds, no guarding, no rebound, no hepatosplenomegaly, no masses. EXTREMITIES: Wound dressings to both lower extremities c/d/i, wounds not visualized; two vascular wounds upper posterior right thigh, one exuding small amount of pus NEUROLOGICAL: Cranial nerves II through XII grossly intact. Normal speech, gait not observed. Current Medications Generic Name Dose Route Start Last Admin Trade Name Bryon PRN Reason Stop Dose Admin Albuterol/Ipratropium 1 amp 05/11/17 12:45 Duoneb - NEB Q6H PRN SHORTNESS OF BREATH Clotrimazole 1 applic 05/11/17 10:00 05/12/17 09:13 Lotrisone Cream (Small Tube) TP 1 applic BID MILES Administration Collagenase 1 applic 05/12/17 17:00 05/12/17 17:53 Santyl - TP Not Given DAILY MILES Docusate Sodium 100 mg 05/11/17 22:00 05/12/17 09:10 Colace - PO 100 mg BID MILES Administration Hydralazine HCl 25 mg 05/10/17 22:30 05/12/17 09:10 Apresoline - PO 25 mg BID MILES Administration CEFTRIAXONE 1 G/50 ML PREMIX 50 mls @ 100 mls/hr 05/12/17 22:30 Ceftriaxone 1 Gm-D5w Bag IVPB DAILY MILES Insulin Aspart 1 vial 05/11/17 07:00 05/12/17 17:52 Novolog Vial Sliding Scale - SQ 6 units ACHS MILES Administration Protocol Insulin Detemir 8 units 05/10/17 22:45 05/12/17 06:20 Levemir Vial SQ Not Given BID@ MILES Levothyroxine Sodium 100 mcg 05/11/17 07:00 05/12/17 06:13 Synthroid - PO 100 mcg DAILY@0700 MILES Administration Pantoprazole Sodium 40 mg 05/11/17 13:00 05/12/17 09:10 Protonix - PO 40 mg DAILY MILES Administration Prednisone 40 mg 05/12/17 10:00 05/12/17 09:11 Deltasone - PO 40 mg BID MILES Administration Valacyclovir HCl 500 mg 05/11/17 10:00 05/12/17 09:11 Valtrex - PO 500 mg BID MILES Administration ASSESSMENT/PLAN 87 year-old female with a PMH significant for HTN, chronic venous stasis lower extremity ulcers, polymyaglia rheumatica, and hypothyroidism, admitted on for bilateral lower extremity cellulitis and MYRTLE. Diagnosed with microscopic polyangitis and started on course of Rituximab. Readmitted on 05/10 with recurrent hemoptysis. Followed by Dr. Concepcion in and out patient. Microscopic polyangitis Hemoptysis --treated with pulse steroids and Rituximab (Bruno protocol) with inadequate response; relapse hemoptysis --being followed by rheum and renal, plan is to start plasmapheresis; patient wants to discuss with family members tomorrow before making decision --continue prednisone PO 40mg BID for now per Dr. Concepcion Chronic lower extremity venous ulcers --afebrile; persistent mild leukocytosis --follow culture results --collagenase to wounds with slough/pus UTI --serial UAs show pyuria, patient complains of frequency --culture pending --start empiric ceftriaxone Chronic diastolic heart failure --euvolemic Acute on chronic kidney disease --04/12 renal/bladder: evidence of chronic medical disease --Cr 2.3, has not improved with treatment Hypothyroidism --continue levothyroxine Inframammary fungal infection --clotrimazole BID Hypertension --continue hydralazine IDDM --Levemir --Novolog sliding scale F/E/N Fluids: PO intake adequate Electrolytes: replete as indicated Nutrition: diabetic sodium DVT prophylaxis: subq heparin, oob, ambulation Dispo: continues to require inpatient care. Full code. Visit type - Emergency Visit Emergency Visit: Yes ED Registration Date: 05/12/17 Care time: The patient presented to the Emergency Department on the above date and was hospitalized for further evaluation of their emergent condition. - New Patient This patient is new to me today: Yes Date on this admission: 05/12/17 - Critical Care Critical Care patient: No
[2017-05-12] MEDS ORDERED: CEFTRIAXONE 1 G/50 ML PREMIX 50 ML IVPB SCH (17:45)
[2017-05-12] MEDS: COLLAGENASE CLOSTRIDIUM HIST. 30 GRAMS TUBE TP SCH (17:53)
[2017-05-12 21:38] LABS: URINE APPEARANCE SLCLOUDY; URINE BILIRUBIN NEGATIVE (NEGATIVE); URINE BLOOD 3+ (NEGATIVE); URINE COLOR YELLOW; URINE GLUCOSE (UA) 3+ (NEGATIVE); URINE KETONE NEGATIVE (NEGATIVE); URINE NITRITE POSITIVE (NEGATIVE); URINE UROBILINOGEN NEGATIVE mg/dL (0.2-1.0)
[2017-05-12 21:44] LABS: URINE PROTEIN 2+ (NEGATIVE)
[2017-05-12 21:45] LABS: URINE BACTERIA RARE /hpf (NONE SEEN); URINE HYALINE CAST 1 /lpf; URINE MUCUS RARE; URINE RBC 61 /hpf (0-3); URINE WBC 40 /hpf (3-5)
[2017-05-12 22:33] LABS: URINE LEUK ESTERASE TRACE (NEGATIVE)
[2017-05-12] MEDS: CEFTRIAXONE 1 G/50 ML PREMIX 50 ML IVPB SCH (22:58)
[2017-05-12] MEDS: HEPARIN NA (PORCINE) 5,000 UNITS/ML 1ML VIAL SQ SCH (23:12)
[2017-05-13] MEDS ORDERED: HEPARIN NA (PORCINE) 5,000 UNITS/ML 1ML VIAL SQ SCH (06:00)
[2017-05-13] MEDS: HEPARIN NA (PORCINE) 5,000 UNITS/ML 1ML VIAL SQ SCH ×3 (06:11→22:12)
[2017-05-13] MEDS: INSULIN DETEMIR 100 UNITS/ML MDV SQ SCH ×2 (06:12→22:15)
[2017-05-13] MEDS: INSULIN SLIDING SCALE (NOVOLOG) 1 VIAL SQ SCH ×4 (06:13→22:17)
[2017-05-13] MEDS: LEVOTHYROXINE NA 100 MCG TABLET (FP) PO SCH (06:21)
[2017-05-13 07:05] LABS: BASOPHIL 0.1 % (0-2.0); MCH 29.8 pg (25.7-33.7); MEAN CELL VOLUME 87.8 fl (80-96); MEAN PLT VOLUME 8.3 fl (7.5-11.1); NEUTROPHILS 95.9 % (42.8-82.8); PLATELET COUNT 68 K/MM3 (134-434); RDW 25.1 % (11.6-15.6); WHITE BLOOD COUNT 11.5 K/mm3 (4.0-10.0)
[2017-05-13 07:18] LABS: ALBUMIN 2.5 g/dl (3.4-5.0); ANION GAP 11 (8-16); BILIRUBIN,TOTAL 0.7 mg/dL (0.2-1.0); CALCIUM 7.3 mg/dL (8.5-10.1); CO2 25 mmol/L (21-32); CREATININE 2.3 mg/dL (0.55-1.02); GLUCOSE,RANDOM 142 mg/dL (74-106); PHOSPHOROUS 3.1 mg/dL (2.5-4.9); SGOT/AST 8 U/L (15-37); SGPT/ALT 18 U/L (12-78); TOT PROT 4.8 g/dl (6.4-8.2)
[2017-05-13 07:19] LABS: ALK PHOS 57 U/L (45-117)
--- NOTE | 2017-05-13 09:18 | PN ---
Progress Note (short form) - Note Progress Note: The patient is feeling well. Yesterday she had sputum with a very small amount of blood. She denies SOB, CP or arthralgia. No fever since admission. P/E Lungs clear. Sq and S2 normal. No gallop and no murmur. No active joints. Labs. ESR 9, creatininbe 2.3, UA with protein 2+, glucose 3+ and blood 3+. Yesterday UA reported with 3 granular casts, today with 1 hyaline cast. Impression. Disease probably still active. The patient wants me to discuss with her family the indication of Plasmapheresis. I decreased Prednisone to 60 mg/d. I will talk to them this afternoon and hopefully start it as soon as possible. Problem List - Problems (1) Microscopic polyangiitis Code(s): M31.7 - MICROSCOPIC POLYANGIITIS
[2017-05-13] MEDS ORDERED: PT OWN MED DRAWER 7, Y5N ONE ×2 (11:00→22:10)
[2017-05-13] MEDS: CEFTRIAXONE 1 G/50 ML PREMIX 50 ML IVPB SCH (11:02)
[2017-05-13] MEDS: predniSONE 20 MG TABLET (UD) PO SCH (11:02)
[2017-05-13] MEDS: hydrALAZINE HCL 25 MG TABLET (FP) PO SCH ×2 (11:03→22:12)
[2017-05-13] MEDS: PANTOPRAZOLE 40 MG TABLET (FP) PO SCH ×2 (11:03→11:23)
[2017-05-13] MEDS: COLLAGENASE CLOSTRIDIUM HIST. 30 GRAMS TUBE TP SCH (11:03)
[2017-05-13] MEDS: DOCUSATE SODIUM 100 MG CAPSULE (FP) PO SCH ×2 (11:03→22:12)
[2017-05-13] MEDS: valACYclovir HCL 500 MG TABLET (FP) PO SCH ×2 (11:04→22:12)
[2017-05-13] MEDS: CLOTRIMAZOLE/BETAMET DIPROP 15 GM TUBE TP SCH ×2 (11:07→22:19)
--- NOTE | 2017-05-13 11:33 | PN ---
Physical Exam: SUBJECTIVE: --NEPHROLOGY PROGRESS NOTE-- Patient seen and examined at bedside. Pt feels well. Has not had cough overnight. No acute events overnight. Pt would like to discuss treatment options with family and doctors in a meeting. OBJECTIVE: Vital Signs Temperature 98 F 05/13/17 08:45 Pulse Rate 77 05/13/17 08:45 Respiratory Rate 20 05/13/17 08:45 Blood Pressure 143/82 05/13/17 08:45 O2 Sat by Pulse Oximetry (%) 96 05/13/17 06:00 GENERAL: The patient is awake, alert, and fully oriented, in no acute distress. ENT: Ears normal, nares patent membranes. NECK: No bruits. LUNGS: Breath sounds equal, clear to auscultation bilaterally, no wheezes, no crackles, no accessory muscle use. HEART: Regular rate and rhythm, S1, S2; Systolic 2/6 murmur best heard in the aortic region. ABDOMEN: Soft, nontender, nondistended, normoactive bowel sounds EXTREMITIES: 2+ pitting edema L>R. NEUROLOGICAL:Normal speech, gait not observed. SKIN: Warm, dry Laboratory Results - last 24 hr 05/12/17 05/12/17 05/12/17 16:53 20:45 22:53 WBC RBC Hgb Hct MCV MCH MCHC RDW Plt Count MPV Neutrophils % Lymphocytes % Monocytes % Eosinophils % Basophils % Sodium Potassium Chloride Carbon Dioxide Anion Gap BUN Creatinine Creat Clearance w eGFR POC Glucometer 332 216 Random Glucose Calcium Phosphorus Magnesium Total Bilirubin AST ALT Alkaline Phosphatase Total Protein Albumin Urine Color Yellow Urine Appearance Slcloudy Urine pH 6.0 Ur Specific [place] 1.010 Urine Protein 2+ H Urine Glucose (UA) 3+ H Urine Ketones Negative Urine Blood 3+ H Urine Nitrite Positive Urine Bilirubin Negative Urine Urobilinogen Negative Ur Leukocyte Esterase Trace H Urine RBC 61 Urine WBC 40 Ur Epithelial Cells Rare Urine Bacteria Rare Hyaline Casts 1 Urine Mucus Rare 05/13/17 05/13/17 05/13/17 05:55 06:20 06:20 WBC 11.5 H RBC 2.48 L Hgb 7.4 L Hct 21.8 L MCV 87.8 MCH 29.8 MCHC 34.0 RDW 25.1 H Plt Count 68 L MPV 8.3 Neutrophils % 95.9 H Lymphocytes % 2.2 L D Monocytes % 1.8 L Eosinophils % 0.0 D Basophils % 0.1 Sodium 143 Potassium 4.2 Chloride 107 Carbon Dioxide 25 Anion Gap 11 BUN 59 H Creatinine 2.3 H Creat Clearance w eGFR 20.62 POC Glucometer 163 Random Glucose 142 H D Calcium 7.3 L Phosphorus 3.1 D Magnesium 2.0 Total Bilirubin 0.7 D AST 8 L ALT 18 Alkaline Phosphatase 57 Total Protein 4.8 L Albumin 2.5 L Urine Color Urine Appearance Urine pH Ur Specific [place] Urine Protein Urine Glucose (UA) Urine Ketones Urine Blood Urine Nitrite Urine Bilirubin Urine Urobilinogen Ur Leukocyte Esterase Urine RBC Urine WBC Ur Epithelial Cells Urine Bacteria Hyaline Casts Urine Mucus Active Medications Generic Name Dose Route Start Last Admin Trade Name Freq PRN Reason Stop Dose Admin Albuterol/Ipratropium 1 amp 05/11/17 12:45 Duoneb - NEB Q6H PRN SHORTNESS OF BREATH Clotrimazole 1 applic 05/11/17 10:00 05/12/17 22:57 Lotrisone Cream (Small Tube) TP 1 applic BID MILES Administration Collagenase 1 applic 05/12/17 17:00 05/13/17 11:03 Santyl - TP 1 applic DAILY MILES Administration Docusate Sodium 100 mg 05/11/17 22:00 05/13/17 11:03 Colace - PO 100 mg BID MILES Administration Heparin Sodium (Porcine) 5,000 unit 05/12/17 23:00 05/13/17 06:11 Heparin - SQ 5,000 unit TID MILES Administration Hydralazine HCl 25 mg 05/10/17 22:30 05/13/17 11:03 Apresoline - PO 25 mg BID MILES Administration CEFTRIAXONE 1 G/50 ML PREMIX 50 mls @ 100 mls/hr 05/12/17 22:30 05/13/17 11:02 Ceftriaxone 1 Gm-D5w Bag IVPB 100 mls/hr DAILY MILES Administration Insulin Aspart 1 vial 05/11/17 07:00 05/13/17 06:13 Novolog Vial Sliding Scale - SQ Not Given ACHS [facility] Protocol Insulin Detemir 8 units 05/10/17 22:45 05/13/17 06:12 Levemir Vial SQ 8 units BID@07,22 MILES Administration Levothyroxine Sodium 100 mcg 05/11/17 07:00 05/13/17 06:21 Synthroid - PO 100 mcg DAILY@0700 MILES Administration Pantoprazole Sodium 40 mg 05/11/17 13:00 05/13/17 11:03 Protonix - PO 40 mg DAILY MILES Administration Prednisone 60 mg 05/13/17 10:00 05/13/17 11:02 Deltasone - PO 60 mg DAILY MILES Administration Valacyclovir HCl 500 mg 05/11/17 10:00 05/13/17 11:04 Valtrex - PO 500 mg BID MILES Administration ASSESSMENT/PLAN: 77 y/o F w/PMH of HTN, chronic venous statis ulcers of lower extremities, polymyalgia rheumatica, hypothyroidism admitted for hemoptysis secondary to recently diagnosed microscopic polyangitis with likely failed treatment. -Hemoptysis secondary to microscopic polyangitis -c/w prednisone 60 mg po qd -Dr. Concepcion, rheumatology, following -Will likely need plasmapheresis but pt would like to discuss with family first. -c/w valtrex 500 mg po bid -Acute on chronic kidney disease -likely secondary to microscopic polyangitis -c/w therapy as noted above -monitor Cr -UTI -c/w ceftriaxone -Chronic LE venous stasis ulcers -c/w wound care -Hypothyroidism -c/w synthroid -HTN -c/w hydralazine -DM -c/w current management -CHF -c/w current management Visit type - Emergency Visit Emergency Visit: Yes ED Registration Date: 05/12/17 Care time: The patient presented to the Emergency Department on the above date and was hospitalized for further evaluation of their emergent condition. - New Patient This patient is new to me today: No - Critical Care Critical Care patient: No
--- NOTE | 2017-05-13 15:15 | PN ---
Progress Note, Physician History of Present Illness: PULMONARY ALERT,FEELING BETTER,-RESP DISTRES,-HEMOPTYSIS - Current Medication List Current Medications: Active Medications Albuterol/Ipratropium (Duoneb -) 1 amp NEB Q6H PRN PRN Reason: SHORTNESS OF BREATH Clotrimazole (Lotrisone Cream (Small Tube)) 1 applic TP BID [facility] Last Admin: 05/13/17 11:07 Dose: 1 applic Collagenase (Santyl -) 1 applic TP DAILY [facility] Last Admin: 05/13/17 11:03 Dose: 1 applic Docusate Sodium (Colace -) 100 mg PO BID [facility] Last Admin: 05/13/17 11:03 Dose: 100 mg Heparin Sodium (Porcine) (Heparin -) 5,000 unit SQ TID [facility] Last Admin: 05/13/17 13:57 Dose: 5,000 unit Hydralazine HCl (Apresoline -) 25 mg PO BID [facility] Last Admin: 05/13/17 11:03 Dose: 25 mg CEFTRIAXONE 1 G/50 ML PREMIX (Ceftriaxone 1 Gm-D5w Bag) 50 mls @ 100 mls/hr IVPB DAILY [facility] Last Admin: 05/13/17 11:02 Dose: 100 mls/hr Insulin Aspart (Novolog Vial Sliding Scale -) 1 vial SQ ACHS [facility] PRN Reason: Protocol Last Admin: 05/13/17 11:58 Dose: 4 units Insulin Detemir (Levemir Vial) 8 units SQ BID@07,22 [facility] Last Admin: 05/13/17 06:12 Dose: 8 units Levothyroxine Sodium (Synthroid -) 100 mcg PO DAILY@0700 [facility] Last Admin: 05/13/17 06:21 Dose: 100 mcg Pantoprazole Sodium (Protonix -) 40 mg PO DAILY [facility] Last Admin: 05/13/17 11:23 Dose: Not Given Prednisone (Deltasone -) 60 mg PO DAILY [facility] Last Admin: 05/13/17 11:02 Dose: 60 mg Valacyclovir HCl (Valtrex -) 500 mg PO BID [facility] Last Admin: 05/13/17 11:04 Dose: 500 mg - Objective Vital Signs: Vital Signs Temperature 97.9 F 05/13/17 14:56 Pulse Rate 74 05/13/17 14:56 Respiratory Rate 20 05/13/17 14:56 Blood Pressure 142/81 05/13/17 14:56 O2 Sat by Pulse Oximetry (%) 97 05/13/17 14:00 Constitutional: Yes: Well Nourished, Calm Eyes: Yes: WNL HENT: Yes: Nasal Congestion Neck: Yes: WNL Cardiovascular: Yes: Regular Rate and Rhythm, S1, S2 Respiratory: Yes: Rhonchi (FEW SCATTERED RHONCHI) Gastrointestinal: Yes: Normal Bowel Sounds, Soft Extremities: Yes: WNL Edema: No Labs: CBC, BMP 05/13/17 06:20 05/13/17 06:20 INR, PTT INR 1.05 (0.82-1.09) 05/10/17 16:00 - ....Imaging Cat Scan: Report Reviewed, Image Reviewed (BILATERAL GROUNG GLASS INFILTRATES, SIGNIFICANT IMPROVEMENT FROM PRIOR CT) Problem List - Problems (1) Microscopic polyangiitis Code(s): M31.7 - MICROSCOPIC POLYANGIITIS (2) Bilateral pulmonary infiltrates on chest x-ray Code(s): R91.8 - OTHER NONSPECIFIC ABNORMAL FINDING OF LUNG FIELD (3) Hypertension Code(s): I10 - ESSENTIAL (PRIMARY) HYPERTENSION (4) Hypothyroid Code(s): E03.9 - HYPOTHYROIDISM, UNSPECIFIED (5) Vasculitis Code(s): I77.6 - ARTERITIS, UNSPECIFIED (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
--- NOTE | 2017-05-13 17:26 | PN ---
Physical Exam: SUBJECTIVE: Patient seen and examined at the bedside. She denies any further hemoptysis today. Had an episode of hemoptysis on 05/11/2017. OBJECTIVE: Vital Signs Period Temp Pulse Resp BP Sys/Horn Pulse Ox Last 24 Hr 97.9 F-98.4 F 74-87 18-20 135-155/69-82 96-97 GENERAL: The patient is awake, alert, and fully oriented, in no acute distress, mild hand tremors likely secondary to prednisone use HEAD: Normal with no signs of trauma. EYES: PERRL, extraocular movements intact, sclera anicteric, conjunctiva clear. No ptosis. ENT: Ears normal, nares patent, oropharynx clear without exudates, moist mucous membranes. NECK: Trachea midline, full range of motion, supple. LUNGS: Breath sounds equal, clear to auscultation bilaterally, no wheezes, no crackles, no accessory muscle use. HEART: Regular rate and rhythm ABDOMEN: Soft, nontender, nondistended, normoactive bowel sounds, no guarding, no rebound, no hepatosplenomegaly, no masses. EXTREMITIES: 2+ pulses, warm, well-perfused, no edema. NEUROLOGICAL: Normal speech, gait not observed. PSYCH: Normal mood, normal affect. SKIN: Bilateral lower ext ulcers, not viewed, dressing intact Laboratory Results - last 24 hr 05/12/17 05/12/17 05/12/17 16:53 20:45 22:53 WBC RBC Hgb Hct MCV MCH MCHC RDW Plt Count MPV Neutrophils % Lymphocytes % Monocytes % Eosinophils % Basophils % Sodium Potassium Chloride Carbon Dioxide Anion Gap BUN Creatinine Creat Clearance w eGFR POC Glucometer 332 216 Random Glucose Calcium Phosphorus Magnesium Total Bilirubin AST ALT Alkaline Phosphatase Total Protein Albumin Urine Color Yellow Urine Appearance Slcloudy Urine pH 6.0 Ur Specific [place] 1.010 Urine Protein 2+ H Urine Glucose (UA) 3+ H Urine Ketones Negative Urine Blood 3+ H Urine Nitrite Positive Urine Bilirubin Negative Urine Urobilinogen Negative Ur Leukocyte Esterase Trace H Urine RBC 61 Urine WBC 40 Ur Epithelial Cells Rare Urine Bacteria Rare Hyaline Casts 1 Urine Mucus Rare 05/13/17 05/13/17 05/13/17 05:55 06:20 06:20 WBC 11.5 H RBC 2.48 L Hgb 7.4 L Hct 21.8 L MCV 87.8 MCH 29.8 MCHC 34.0 RDW 25.1 H Plt Count 68 L MPV 8.3 Neutrophils % 95.9 H Lymphocytes % 2.2 L D Monocytes % 1.8 L Eosinophils % 0.0 D Basophils % 0.1 Sodium 143 Potassium 4.2 Chloride 107 Carbon Dioxide 25 Anion Gap 11 BUN 59 H Creatinine 2.3 H Creat Clearance w eGFR 20.62 POC Glucometer 163 Random Glucose 142 H D Calcium 7.3 L Phosphorus 3.1 D Magnesium 2.0 Total Bilirubin 0.7 D AST 8 L ALT 18 Alkaline Phosphatase 57 Total Protein 4.8 L Albumin 2.5 L Urine Color Urine Appearance Urine pH Ur Specific [place] Urine Protein Urine Glucose (UA) Urine Ketones Urine Blood Urine Nitrite Urine Bilirubin Urine Urobilinogen Ur Leukocyte Esterase Urine RBC Urine WBC Ur Epithelial Cells Urine Bacteria Hyaline Casts Urine Mucus 05/13/17 05/13/17 11:56 16:38 WBC RBC Hgb Hct MCV MCH MCHC RDW Plt Count MPV Neutrophils % Lymphocytes % Monocytes % Eosinophils % Basophils % Sodium Potassium Chloride Carbon Dioxide Anion Gap BUN Creatinine Creat Clearance w eGFR POC Glucometer 251 331 Random Glucose Calcium Phosphorus Magnesium Total Bilirubin AST ALT Alkaline Phosphatase Total Protein Albumin Urine Color Urine Appearance Urine pH Ur Specific [place] Urine Protein Urine Glucose (UA) Urine Ketones Urine Blood Urine Nitrite Urine Bilirubin Urine Urobilinogen Ur Leukocyte Esterase Urine RBC Urine WBC Ur Epithelial Cells Urine Bacteria Hyaline Casts Urine Mucus Active Medications Generic Name Dose Route Start Last Admin Trade Name Freq PRN Reason Stop Dose Admin Albuterol/Ipratropium 1 amp 05/11/17 12:45 Duoneb - NEB Q6H PRN SHORTNESS OF BREATH Clotrimazole 1 applic 05/11/17 10:00 05/13/17 11:07 Lotrisone Cream (Small Tube) TP 1 applic BID MILES Administration Collagenase 1 applic 05/12/17 17:00 05/13/17 11:03 Santyl - TP 1 applic DAILY MILES Administration Docusate Sodium 100 mg 05/11/17 22:00 05/13/17 11:03 Colace - PO 100 mg BID MILES Administration Heparin Sodium (Porcine) 5,000 unit 05/12/17 23:00 05/13/17 13:57 Heparin - SQ 5,000 unit TID MILES Administration Hydralazine HCl 25 mg 05/10/17 22:30 05/13/17 11:03 Apresoline - PO 25 mg BID MILES Administration CEFTRIAXONE 1 G/50 ML PREMIX 50 mls @ 100 mls/hr 05/12/17 22:30 05/13/17 11:02 Ceftriaxone 1 Gm-D5w Bag IVPB 100 mls/hr DAILY MILES Administration Insulin Aspart 1 vial 05/11/17 07:00 05/13/17 16:42 Novolog Vial Sliding Scale - SQ 6 units ACHS MILES Administration Protocol Insulin Detemir 8 units 05/10/17 22:45 05/13/17 06:12 Levemir Vial SQ 8 units BID@ MILES Administration Levothyroxine Sodium 100 mcg 05/11/17 07:00 05/13/17 06:21 Synthroid - PO 100 mcg DAILY@0700 MILES Administration Pantoprazole Sodium 40 mg 05/11/17 13:00 05/13/17 11:23 Protonix - PO Not Given DAILY MILES Prednisone 60 mg 05/13/17 10:00 05/13/17 11:02 Deltasone - PO 60 mg DAILY MILES Administration Valacyclovir HCl 500 mg 05/11/17 10:00 05/13/17 11:04 Valtrex - PO 500 mg BID MILES Administration ASSESSMENT/PLAN: Patient is an 77 year-old female with a significant past medical history of HTN , chronic venous stasis lower extremity ulcers, polymyaglia rheumatica, and hypothyroidism. She presents to the hospital on 05/10/17 with an isolated episode of hemoptysis. Patient was recently admitted here between 04/09 > 04/29 for bilateral lower extremity cellulitis and MYRTLE. During last admission she was diagnosed with microscopic polyangitis and is currently on Rituxan and has received 3/4 doses. She was reported to have another episode of hemoptysis on 05/11/2017 and at this time plasmapheresis is being considered. Patient to decide on this after discussing with her family. 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 She is on Rituxan weekly and has received 3/4 doses On Prednisone 60mg daily Will likely need plasmapharesis, patient to discuss with rheumatology Renal: Chronic Kidney Disease, acute on chronic Creatinine 2.3, similar to last admission Renal following : UA +3 Leuk, Est, on Ceftriaxone Await urine culture, if negative will d/c antibiotics Endocrine: Hypothyroidism A/P: On home dose of Synthroid of 100mcgs Continue current dose Hyperglycemia, likely steroid induced A/p: Levemir and Novolog, BGMs Hematology: Anemia, acute on chronic Repeat CBC, transfuse if hmg <7 or symptomatic Stool for occult blood ordered Prophylaxis: DVT: None secondary to hemoptysis, SCDs contraindicated for painful LE ulcers GI: Protonix while on steriods Dispo: full code. Visit type - Emergency Visit Emergency Visit: Yes ED Registration Date: 05/12/17 Care time: The patient presented to the Emergency Department on the above date and was hospitalized for further evaluation of their emergent condition. - New Patient This patient is new to me today: No - Critical Care Critical Care patient: No - Discharge Referral Referred to [facility] Med P.C.: No
--- NOTE | 2017-05-13 18:05 | PN ---
Teaching Attending Note Name of Resident: Jorge Newton (Nephrology) ATTENDING PHYSICIAN STATEMENT I saw and evaluated the patient. I reviewed the resident's note and discussed the case with the resident. I agree with the resident's findings and plan as documented. Nephrology Pt seen and examined at bedside. She has not had hemoptysis today. Current Medications Generic Name Dose Route Start Last Admin Trade Name Freq PRN Reason Stop Dose Admin Albuterol/Ipratropium 1 amp 05/11/17 12:45 Duoneb - NEB Q6H PRN SHORTNESS OF BREATH Clotrimazole 1 applic 05/11/17 10:00 05/13/17 11:07 Lotrisone Cream (Small Tube) TP 1 applic BID MILES Administration Collagenase 1 applic 05/12/17 17:00 05/13/17 11:03 Santyl - TP 1 applic DAILY MILES Administration Docusate Sodium 100 mg 05/11/17 22:00 05/13/17 11:03 Colace - PO 100 mg BID MILES Administration Heparin Sodium (Porcine) 5,000 unit 05/12/17 23:00 05/13/17 13:57 Heparin - SQ 5,000 unit TID MILES Administration Hydralazine HCl 25 mg 05/10/17 22:30 05/13/17 11:03 Apresoline - PO 25 mg BID MILES Administration CEFTRIAXONE 1 G/50 ML PREMIX 50 mls @ 100 mls/hr 05/12/17 22:30 05/13/17 11:02 Ceftriaxone 1 Gm-D5w Bag IVPB 100 mls/hr DAILY MILES Administration Insulin Aspart 1 vial 05/11/17 07:00 05/13/17 16:42 Novolog Vial Sliding Scale - SQ 6 units ACHS MILES Administration Protocol Insulin Detemir 8 units 05/10/17 22:45 05/13/17 06:12 Levemir Vial SQ 8 units BID@,22 MILES Administration Levothyroxine Sodium 100 mcg 05/11/17 07:00 05/13/17 06:21 Synthroid - PO 100 mcg DAILY@0700 MILES Administration Pantoprazole Sodium 40 mg 05/11/17 13:00 05/13/17 11:23 Protonix - PO Not Given DAILY MILES Prednisone 60 mg 05/13/17 10:00 05/13/17 11:02 Deltasone - PO 60 mg DAILY MILES Administration Valacyclovir HCl 500 mg 05/11/17 10:00 05/13/17 11:04 Valtrex - PO 500 mg BID MILES Administration Last Vital Signs Temp Pulse Resp BP Pulse Ox 97.9 F 74 20 142/81 97 05/13/17 14:56 05/13/17 14:56 05/13/17 14:56 05/13/17 14:56 05/13/17 14:00 Laboratory Tests 04/24/17 04/24/17 04/25/17 05:35 05:35 05:35 Hgb 9.6 L BUN 62 H Creatinine 2.0 H 2.2 H Urine Protein Urine Blood 05/10/17 05/12/17 17:15 20:45 Hgb BUN Creatinine Urine Protein 2+ H 2+ H Urine Blood 3+ H 3+ H cardio s1s2 pulm clear GI soft ext edema neuro awake Impression 1. MYRTLE 2. lower extremity ulcer 3. hypothyroid 4. HTN 5. polymyalgia 6. anemia 7. vasculitis microscopic polyangitis 8. thrombophlebitis 9. hemoptysis Plan - discussed with rheumatology - pt offered plasma exchange - discussed with heme brook - urine sediment is still active - reviewed ct results - discussed treatment at length with pt today - will follow closely Dr Hamilton
--- NOTE | 2017-05-13 21:41 | CONSULT ---
Consult - text type - Consultation Consultation Note: PAtient seen and examined 77 year old female with PMHx of borderline hypertension, polymyalgia rheumatica and hypothyroidism, admitted one month ago with active microscopic polyangiitis and admitted this time with recurrent hemoptysis. The patient was admitted on 04/09/17 with history of ulcers in legs, shortness of breath and hemoptysis. A CT scan of the chest was reported with multifocal consolidation opacities in bilateral upper lobes, R>L, right middle lobe and left lower lobe and very small pleural effusions, L>R. Air bronchograms and mediastinal and right hilar lymphadenopathy. Creatinine increased from 1.6 to 2.1. UA revealed protein 2+, blood 3+, hyaline casts 1 and granular casts 8. KEELEY was 1:320 with homogeneous and nuclear patterns, P-ANCA 1:160 and myeloperoxidase >100. Anti-DNAds was negative and complement was normal. 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 The patient was treated with IV pulse steroids, 1 gr/ day for 3 days and then started on Rituximab 375 mg/m2 once per week. She received 3 doses and is scheduled to receive one more dose. Since discharge she has been on Prednisone 40 mg BID. In the present admission the patient reports she had mild hemoptysis. She reports malaise and weakness and denies shortness of breath, chest pain, abdominal pain, fever, skin rash or joint pain. - History Source History Provided By: Patient, Medical Record Limitations to Obtaining History: No Limitations - Past Medical History [employer]: No: Alzheimer's Cardio/Vascular: Yes: HTN. No: AFIB Pulmonary: Yes: Pneumonia, Other (hemoptysis). No: Asthma Gastrointestinal: No: Ascites Hepatobiliary: No: Cirrhosis Renal/: Yes: Renal Inusuff. No: Hematuria Rheumatology: Yes: Vasculitis, Other (Polymyalgia rheumatica) Endocrine: Yes: Diabetes Mellitus, Hypothyroidism Dermatology: Yes: Other (open LE wounds) - Past Surgical History Additional Surgical History: kidney biopsy - Smoking History Smoking history: Never smoked - Allergies Allergies/Adverse Reactions: Allergies Allergy/AdvReac Type Severity Reaction Status Date / Time Sulfa (Sulfonamide Allergy Severe Verified 05/10/17 15:14 Antibiotics) - Home Medications Home Medications: Ambulatory Orders Levothyroxine [Synthroid -] 100 mcg PO DAILY 03/23/14 Hydralazine HCl [Apresoline -] 25 mg PO BID #60 tablet 04/25/17 Prednisone [Deltasone -] 40 mg PO BID #60 tablet 04/25/17 Aspirin Coated [Ecotrin -] 81 mg PO DAILY #30 tab 04/27/17 Alcohol Antiseptic Pads [Caretouch Alcohol Prep Pad] 1 each ACHS #1 box 04/29 Insulin (Levemir) [Levemir Flexpen -] 8 units SQ BID #1 pen 04/29/17 Insulin Aspart [Novolog Flexpen] 2 unit SQ ACHS #1 insuln.pen 04/29/17 Lancets/Blood Glucose Strips [Fora [id number] Strp-Lnct] 1 each MC ACHS #1 box 04/29/17 Miscellaneous Medical Supply [Glucometer Device] 1 each SQ ASDIR #1 kit Miscellaneous Medical Supply [Glucometer Test Strips #100] 1 each SQ ASDIR #1 box 04/29/17 [place], Safety [Easy Touch Fliplock Needle] 1 each ACHS #1 box 04/29/17 Valacyclovir HCl [Valtrex -] 500 mg PO BID #60 tablet 04/29/17 - Family Disease History Family Disease History: Diabetes: Mother, Brother Physical Exam Vital Signs: AFVSS Eyes: Yes: WNL HENT: Yes: WNL Neck: Yes: WNL Cardiovascular: Yes: WNL Respiratory: Yes: WNL Gastrointestinal: Yes: WNL Musculoskeletal: Yes: WNL Integumentary: Yes: Other (Ulcers in both legs.) Labs reviewed A?P 77 y/o patient with microscopic polyangiitis, with hemoptysis, renal impairment , s/p renal biopsy---04/22/17 s/p pulse steroids, rituxan---3 doses --last 05/08 Now comes in with recurrent hemoptysis, last over weekend, and active urinary sediment also with new onset thrombocytopenia Case discussed with nephrology/rheumatology teams--they want to proceed with plasmapheresis discussed with patient about the procedure, complications including life threatening allergic reactions/bleeding/hypocalcemia/henodynamic instability She consents to proceed Will consult vascular team for access to consider plasmaexchange -- 7 sessions every other day CT ca/p--b/l pulmonary ground glass opacities, gall stones thrombocytopenia -- ?? ongoing pulmonary process? infection ? vasculitis--on rocephin ? meds monitor closely
[2017-05-13] MEDS ORDERED: INSULIN (NOVOLOG) ASPART 100 UNITS/ML 10ML VIAL ONE (22:17)
[2017-05-14] MEDS: LEVOTHYROXINE NA 100 MCG TABLET (FP) PO SCH (06:27)
[2017-05-14] MEDS: HEPARIN NA (PORCINE) 5,000 UNITS/ML 1ML VIAL SQ SCH ×3 (06:27→21:54)
[2017-05-14 06:40] LABS: BASOPHIL 0.1 % (0-2.0); EOSINOPHIL 0.3 % (0-4.5); MCH 29.1 pg (25.7-33.7); MCHC 33.3 g/dl (32.0-36.0); MEAN CELL VOLUME 87.2 fl (80-96); MEAN PLT VOLUME 8.3 fl (7.5-11.1); NEUTROPHILS 83.3 % (42.8-82.8); PLATELET COUNT 98 K/MM3 (134-434); RDW 25.8 % (11.6-15.6); WHITE BLOOD COUNT 11.2 K/mm3 (4.0-10.0)
[2017-05-14] MEDS: INSULIN DETEMIR 100 UNITS/ML MDV SQ SCH (06:55)
[2017-05-14] MEDS: INSULIN SLIDING SCALE (NOVOLOG) 1 VIAL SQ SCH ×4 (06:56→21:54)
[2017-05-14 07:15] LABS: ALBUMIN 2.6 g/dl (3.4-5.0); ALK PHOS 62 U/L (45-117); ANION GAP 13 (8-16); BILIRUBIN,TOTAL 0.7 mg/dL (0.2-1.0); CALCIUM 7.3 mg/dL (8.5-10.1); CO2 23 mmol/L (21-32); CREATININE 2.3 mg/dL (0.55-1.02); SGOT/AST 7 U/L (15-37); SGPT/ALT 20 U/L (12-78); TOT PROT 5.2 g/dl (6.4-8.2)
[2017-05-14 07:56] LABS: GLUCOSE,RANDOM 44 mg/dL (74-106)
--- NOTE | 2017-05-14 08:02 | PN ---
Physical Exam: SUBJECTIVE: Patient seen and examined. OBJECTIVE: Serum glucose 44 @0500, patient on Levemir 8units BID Reported to be diaphoretic, given a snack by RN, repeat blood sugar stable Will d/c evening dose of Levemir, continue a.m. dose Thrombocytopenia @ 98 Anemia of chronic disease For 1 unit of PRBC as per hematology S/P: Shiley placed for plasmapheresis (plan for 7 sessions, treatment every other day) Vital Signs Period Temp Pulse Resp BP Sys/Horn Pulse Ox Last 24 Hr 97.7 F-98.2 F 68-78 19-20 122-158/65-82 95-97 GENERAL: The patient is awake, alert, and fully oriented, in no acute distress, but overwhelmed with all of today's procedures/blood transfusion and plasmapheresis Patient would like to be informed of any procedures, infusions, etc before hand. HEAD: Normal with no signs of trauma. EYES: PERRL, extraocular movements intact, sclera anicteric, conjunctiva clear. No ptosis. ENT: Ears normal, nares patent, oropharynx clear without exudates, moist mucous membranes. NECK: Trachea midline, full range of motion, supple. LUNGS: Breath sounds equal, clear to auscultation bilaterally, no wheezes, no crackles, no accessory muscle use. HEART: Regular rate and rhythm ABDOMEN: Soft, nontender, nondistended, normoactive bowel sounds, no guarding, no rebound, no hepatosplenomegaly, no masses. EXTREMITIES: 2+ pulses, warm, well-perfused, no edema. + right groin shiley catheter for plasmapheresis NEUROLOGICAL: Normal speech, gait not observed. PSYCH: Normal mood, normal affect. SKIN: Bilateral lower ext ulcers, not viewed, dressing intact Laboratory Results - last 24 hr 05/13/17 05/13/17 05/13/17 11:56 16:38 22:14 WBC RBC Hgb Hct MCV MCH MCHC RDW Plt Count MPV Neutrophils % Lymphocytes % Monocytes % Eosinophils % Basophils % Hypersegmented Neuts Hypochromia Toxic Granulation Dohle Bodies Polychromasia Poikilocytosis Basophilic Stippling Anisocytosis Microcytosis Macrocytosis Spherocytes Siderocytes Sickle Cells Target Cells Tear Drop Cells Ovalocytes Stomatocytes Helmet Cells Contreras-Rose Bodies [place] Rings Nickie Cells Acanthocytes (Spur) Rouleaux Fragmented RBCs Schistocytes Morphology Comment Sodium Potassium Chloride Carbon Dioxide Anion Gap BUN Creatinine Creat Clearance w eGFR POC Glucometer 251 331 312 Random Glucose Calcium Total Bilirubin AST ALT Alkaline Phosphatase Total Protein Albumin 05/14/17 05/14/17 05/14/17 05:40 05:40 07:12 WBC 11.2 H RBC 2.66 L Hgb 7.7 L Hct 23.2 L MCV 87.2 MCH 29.1 MCHC 33.3 RDW 25.8 H Plt Count 98 L D MPV 8.3 Neutrophils % 83.3 H Lymphocytes % 11.9 D Monocytes % 4.4 D Eosinophils % 0.3 D Basophils % 0.1 Hypersegmented Neuts Cancelled Hypochromia Cancelled Toxic Granulation Cancelled Dohle Bodies Cancelled Polychromasia Cancelled Poikilocytosis Cancelled Basophilic Stippling Cancelled Anisocytosis Cancelled Microcytosis Cancelled Macrocytosis Cancelled Spherocytes Cancelled Siderocytes Cancelled Sickle Cells Cancelled Target Cells Cancelled Tear Drop Cells Cancelled Ovalocytes Cancelled Stomatocytes Cancelled Helmet Cells Cancelled Contreras-Rose Bodies Cancelled [place] Rings Cancelled Nickie Cells Cancelled Acanthocytes (Spur) Cancelled Rouleaux Cancelled Fragmented RBCs Cancelled Schistocytes Cancelled Morphology Comment Cancelled Sodium 142 Potassium 3.4 L Chloride 106 Carbon Dioxide 23 Anion Gap 13 BUN 66 H Creatinine 2.3 H Creat Clearance w eGFR 20.62 POC Glucometer 151 Random Glucose 44 L* D Calcium 7.3 L Total Bilirubin 0.7 AST 7 L ALT 20 Alkaline Phosphatase 62 Total Protein 5.2 L Albumin 2.6 L Active Medications Generic Name Dose Route Start Last Admin Trade Name Freq PRN Reason Stop Dose Admin Albuterol/Ipratropium 1 amp 05/11/17 12:45 Duoneb - NEB Q6H PRN SHORTNESS OF BREATH Clotrimazole 1 applic 05/11/17 10:00 05/13/17 22:19 Lotrisone Cream (Small Tube) TP 1 applic BID MILES Administration Collagenase 1 applic 05/12/17 17:00 05/13/17 11:03 Santyl - TP 1 applic DAILY MILES Administration Docusate Sodium 100 mg 05/11/17 22:00 05/13/17 22:12 Colace - PO 100 mg BID MILES Administration Heparin Sodium (Porcine) 5,000 unit 05/12/17 23:00 05/14/17 06:27 Heparin - SQ 5,000 unit TID MILES Administration Hydralazine HCl 25 mg 05/10/17 22:30 05/13/17 22:12 Apresoline - PO 25 mg BID MILES Administration CEFTRIAXONE 1 G/50 ML PREMIX 50 mls @ 100 mls/hr 05/12/17 22:30 05/13/17 11:02 Ceftriaxone 1 Gm-D5w Bag IVPB 100 mls/hr DAILY MILES Administration Insulin Aspart 1 vial 05/11/17 07:00 05/14/17 06:56 Novolog Vial Sliding Scale - SQ Not Given ACHS [facility] Protocol Insulin Detemir 8 units 05/14/17 10:00 Levemir Vial SQ DAILY MILES Levothyroxine Sodium 100 mcg 05/11/17 07:00 05/14/17 06:27 Synthroid - PO 100 mcg DAILY@0700 MILES Administration Pantoprazole Sodium 40 mg 05/11/17 13:00 05/13/17 11:23 Protonix - PO Not Given DAILY MILES Potassium Chloride 40 meq 05/14/17 07:59 K-Dur - PO 05/14/17 08:00 ONCE ONE Prednisone 60 mg 05/13/17 10:00 05/13/17 11:02 Deltasone - PO 60 mg DAILY MILES Administration Valacyclovir HCl 500 mg 05/11/17 10:00 05/13/17 22:12 Valtrex - PO 500 mg BID MILES Administration ASSESSMENT/PLAN: Patient is an 77 year-old female with a significant past medical history of HTN , chronic venous stasis lower extremity ulcers, polymyaglia rheumatica, and hypothyroidism. She presents to the hospital on 05/10/17 with an isolated episode of hemoptysis. Patient was recently admitted here between 04/09 --> 04/29 for bilateral lower extremity cellulitis and MYRTLE. During last admission she was diagnosed with microscopic polyangitis and is currently on Rituxan and has received 3/4 doses. She was reported to have another episode of hemoptysis on 05/11/2017 and at this time she will be treated with 7 sessions of plasmapheresis, to start today. She will also be getting a unit of prbc prior to the plasmapheresis. Imaging: Vascular study 05/14/2017 shows thrombosis involving the right mid and distal grater saphenous vein consistent with superficial venous thromboses, no evidence of DVT on right or left lower ext. 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 She was on Rituxan weekly and has received 3/4 doses On Prednisone 60mg daily as per rheumatology Today she has received her first dose of plasmapharesis and will need 7 doses total every other day Hematology: Anemia of chronic disease, acute on chronic Received 1 unit or prbc today as per heme Thrombocytopenia, acute Platelets 98 today, monitor Hematology following, HIT panel ordered Renal: Chronic Kidney Disease, acute on chronic Creatinine 2.3, similar to last admission Renal following Vascular: Chronic LE venous stasis ulcers, followed by vascular Wound care daily Vascular study 05/14/2017 shows thrombosis involving the right mid and distal grater saphenous vein consistent with superficial venous thromboses, no evidence of DVT on right or left lower ext. : UA +3 Leuk, Est, on Ceftriaxone Await urine culture, if negative will d/c antibiotics Endocrine: Hypothyroidism A/P: On home dose of Synthroid of 100mcgs Continue current dose Hyperglycemia, likely steroid induced/episode of hypoglycemia today A/p: Levemir daily, Novolog, BGMs Prophylaxis: DVT: Heparin TID GI: Protonix while on steriods Dispo: full code. Visit type - Emergency Visit Emergency Visit: Yes ED Registration Date: 05/12/17 Care time: The patient presented to the Emergency Department on the above date and was hospitalized for further evaluation of their emergent condition. - New Patient This patient is new to me today: No - Critical Care Critical Care patient: No - Discharge Referral Referred to [facility] Med P.[facility].: No
[2017-05-14 08:44] LABS: INR 0.95 (0.82-1.09); PROTHROMBIN TIME (PATIENT) 10.7 SEC (9.98-11.88)
[2017-05-14 08:47] LABS: ACTIVATED PTT 24.4 SECONDS (26.9-34.4)
[2017-05-14] MEDS ORDERED: POTASSIUM CHLORIDE TABS 20 MEQ TABLET.ER (FP) PO ONE ×2 (09:00→11:00)
--- NOTE | 2017-05-14 09:27 | PROC ---
Central Line Insertion - Procedure Note TIME OUT performed prior to this procedure with verbal confirmation of correct patient identity, correct side, agreement of the procedure, correct patient position, availability of necessary equipment. The consent form is complete and accurate. Risk of possible infection and bleeding have been discussed with the patient. Safety precautions based on patient history or medication use has been addressed. All questions answered. INR 1.05 Indication: Other (Will need 7 sessions of plasmaphoresis starting today) Consent on Chart: Yes Central Line: Dialysis Cath, Dual Lumen Position: Supine Area prepped with Chlorhexidine solution then draped using sterile barrier protection. Technique used: Seldinger Ultrasound Guided Assistance: No Site: Right Femoral Dark venous non-pulsatile flow noted from hub of needle. The catheter was introduced. Guide wire removed intact. Each port aspirated then flushed with sterile normal saline and capped. Line secured to skin with nylon suture. Biopatch placed around base of line. Sterile occlusive dressing applied. No complications. Patient tolerated the procedure well.
[2017-05-14] MEDS ORDERED: PT OWN MED DRAWER 7, Y5N ONE ×2 (10:10→21:46)
[2017-05-14] MEDS: CEFTRIAXONE 1 G/50 ML PREMIX 50 ML IVPB SCH (10:15)
[2017-05-14] MEDS: hydrALAZINE HCL 25 MG TABLET (FP) PO SCH ×2 (10:15→21:54)
[2017-05-14] MEDS: DOCUSATE SODIUM 100 MG CAPSULE (FP) PO SCH ×2 (10:15→21:54)
[2017-05-14] MEDS: predniSONE 20 MG TABLET (UD) PO SCH (10:15)
[2017-05-14] MEDS: PANTOPRAZOLE 40 MG TABLET (FP) PO SCH ×2 (10:15→10:33)
[2017-05-14] MEDS: COLLAGENASE CLOSTRIDIUM HIST. 30 GRAMS TUBE TP SCH (10:17)
[2017-05-14] MEDS: CLOTRIMAZOLE/BETAMET DIPROP 15 GM TUBE TP SCH ×2 (10:17→21:55)
[2017-05-14] MEDS: valACYclovir HCL 500 MG TABLET (FP) PO SCH ×2 (10:18→21:54)
--- NOTE | 2017-05-14 10:18 | CONSULT ---
- Consultation REQUESTING PROVIDER: Dameon Silvestre - Vascular Surgery / Wound Care CONSULT REQUEST: We have been asked to surgically evaluate this patient for chronic RLE ulcer. PCP: HPI: Called to eval 77 yo female with PMHx noted below. Well known to Dr. Silvestre [facility], presents to [facility] ED secondary to cough with hemoptysis x1. She was recently dc'd from [facility] 1 week ago with same complaint. Asked by medicine to eval her chronic LE wounds. Denies cough, SOB, AVILA, wheezing. Denies CP, palpitations PMHx: Microscopic polyangitis, IDDM, HTN, Venous stasis ulcer B/L LE, Hypothyroidism , Polymyalgia rhematica, Pneumonia PSHx: Ex-lap (sbo) 1971, Thyroidectomy 2009, kidney biopsy Smoking History: quit 30 years ago Home Meds Levothyroxine [Synthroid -] 100 mcg PO DAILY 03/23/14 Hydralazine HCl [Apresoline -] 25 mg PO BID #60 tablet 04/25/17 Prednisone [Deltasone -] 40 mg PO BID #60 tablet 04/25/17 Aspirin Coated [Ecotrin -] 81 mg PO DAILY #30 tab 04/27/17 Alcohol Antiseptic Pads [Caretouch Alcohol Prep Pad] 1 each ACHS #1 box 04/29 Insulin (Levemir) [Levemir Flexpen -] 8 units SQ BID #1 pen 04/29/17 Insulin Aspart [Novolog Flexpen] 2 unit SQ ACHS #1 insuln.pen 04/29/17 Lancets/Blood Glucose Strips [Fora [id number] Str-Lnct] 1 each ACHS #1 box 04/29/17 Miscellaneous Medical Supply [Glucometer Device] 1 each SQ ASDIR #1 kit Miscellaneous Medical Supply [Glucometer Test Strips #100] 1 each SQ ASDIR #1 box 04/29/17 Brimson, Safety [Easy Touch Fliplock Needle] 1 each ACHS #1 box 04/29/17 Valacyclovir HCl [Valtrex -] 500 mg PO BID #60 tablet 04/29/17 Allergies: Sulfa (severe) ROS: CONSTITUTIONAL: Absent: generalized weakness, malaise, loss of appetite, weight change CARDIOVASCULAR: Absent: palpitations, irregular heart rate, lightheadedness, peripheral edema RESPIRATORY: Absent: GASTROINTESTINAL:Absent: constipation, melena, hematochezia GENITOURINARY: Absent: frequency, urgency, hesitancy, hematuria, flank pain MUSCULOSKELETAL: Absent: myalgia, arthralgia, joint swelling, back pain, neck pain SKIN: Absent: rash, itching, pallor HEMATOLOGIC/IMMUNOLOGIC: Absent: easy bleeding, easy bruising, lymphadenopathy NEUROLOGIC: Absent: headache, focal weakness, paresthesias, dizziness, unsteady gait, seizure, mental status changes, PSYCHIATRIC: Absent: anxiety, depression, suicidal or homicidal ideation, hallucinations. PHYSICAL EXAM: GENERAL: Awake, alert, and fully oriented, in no acute distress. LOWER EXTREMITIES: RLE: venous stasis ulcer to medial aspect. About 6 x 5 cm. Evidence of wound contracture. Base is clean/pink. LLE: small venous stasis ulcers developing, all are approx 5 x 5 mm (located medial, lateral and anterior near ankle) 2+ pulses bilat, warm, well-perfused. No calf tenderness. No peripheral edema. PSYCH: Cooperative. Good eye contact. Appropriate mood and affect. SKIN: Warm, dry, normal turgor, no rashes or lesions noted. Vital Signs Temperature 97.7 F 05/14/17 03:00 Pulse Rate 78 05/14/17 03:00 Respiratory Rate 19 05/14/17 03:00 Blood Pressure 122/65 05/14/17 03:00 O2 Sat by Pulse Oximetry (%) 95 05/13/17 22:00 Lab Results WBC 11.2 K/mm3 (4.0-10.0) H 05/14/17 05:40 RBC 2.66 M/mm3 (3.60-5.2) L 05/14/17 05:40 Hgb 7.7 GM/dL (10.7-15.3) L 05/14/17 05:40 Hct 23.2 % (32.4-45.2) L 05/14/17 05:40 MCV 87.2 fl (80-96) 05/14/17 05:40 MCHC 33.3 g/dl (32.0-36.0) 05/14/17 05:40 RDW 25.8 % (11.6-15.6) H 05/14/17 05:40 Plt Count 98 K/MM3 (134-434) L D 05/14/17 05:40 Sodium 142 mmol/L (136-145) 05/14/17 05:40 Potassium 3.4 mmol/L (3.5-5.1) L 05/14/17 05:40 Chloride 106 mmol/L (98-107) 05/14/17 05:40 Carbon Dioxide 23 mmol/L (21-32) 05/14/17 05:40 Anion Gap 13 (8-16) 05/14/17 05:40 BUN 66 mg/dL (7-18) H 05/14/17 05:40 Creatinine 2.3 mg/dL (0.55-1.02) H 05/14/17 05:40 Random Glucose 44 mg/dL (74-106) L* D 05/14/17 05:40 Calcium 7.3 mg/dL (8.5-10.1) L 05/14/17 05:40 Blood Type Cancelled 05/10/17 16:00 Antibody Screen Cancelled 05/10/17 16:00 INR 0.95 (0.82-1.09) 05/14/17 07:45 Problem List - Problems (1) Venous stasis of both lower extremities Assessment/Plan: Xeroform dressing , 4x4, kerlix daily dressing changes Code(s): I87.8 - OTHER SPECIFIED DISORDERS OF VEINS (2) Microscopic polyangiitis Assessment/Plan: Shiley placed for plasmaphoresis (plan for 7 sessions administer treatment every other day) Code(s): M31.7 - MICROSCOPIC POLYANGIITIS Visit type - Case Type Case Type: ED Admission - New patient This patient is new to me today: Yes Date on this admission: 05/14/17
[2017-05-14] MEDS: ALBUMIN HUMAN 5% 250 ML IV SOLUTION IVPB SCH (14:00)
--- NOTE | 2017-05-14 14:25 | PN ---
Physical Exam: SUBJECTIVE: --NEPHROLOGY PROGRESS NOTE-- Patient seen and examined at beside. Pt feels well overall. Has not had BM in 3 days. This morning pt was hypoglycemic in 40s and was diaphoretic. Given orange juice and crackers with relief of symptoms and repeat blood sugar noted to be 151 as per nursing notes. Pt denies any fevers, chill, n/v/f/c, light-headedness , dizziness at this time. Pt had R femoral dual lumen catheter placed today for plasmapheresis. Currently receiving 1 unit PRBC. OBJECTIVE: Vital Signs Temperature 97.7 F 05/14/17 09:00 Pulse Rate 86 05/14/17 09:00 Respiratory Rate 18 05/14/17 09:00 Blood Pressure 148/84 05/14/17 09:00 O2 Sat by Pulse Oximetry (%) 96 05/14/17 09:00 GENERAL: The patient is awake, alert, and fully oriented, in no acute distress. ENT: Ears normal, nares patent LUNGS: Breath sounds equal, clear to auscultation bilaterally HEART: Regular rate and rhythm, S1, S2. 2/6 systolic murmur best heard in aortic region. ABDOMEN: Soft, nontender, nondistended, normoactive bowel sounds EXTREMITIES: LLE with 2+ pitting edema. RLE with 1+ pitting edema. R femoral catheter in place. NEUROLOGICAL: Normal speech, gait not observed. PSYCH: Normal mood, normal affect. SKIN: Warm, dry Laboratory Results - last 24 hr 05/13/17 05/13/17 05/14/17 16:38 22:14 05:40 WBC 11.2 H RBC 2.66 L Hgb 7.7 L Hct 23.2 L MCV 87.2 MCH 29.1 MCHC 33.3 RDW 25.8 H Plt Count 98 L D MPV 8.3 Neutrophils % 83.3 H Lymphocytes % 11.9 D Monocytes % 4.4 D Eosinophils % 0.3 D Basophils % 0.1 Hypersegmented Neuts Cancelled Hypochromia Cancelled Toxic Granulation Cancelled Dohle Bodies Cancelled Polychromasia Cancelled Poikilocytosis Cancelled Basophilic Stippling Cancelled Anisocytosis Cancelled Microcytosis Cancelled Macrocytosis Cancelled Spherocytes Cancelled Siderocytes Cancelled Sickle Cells Cancelled Target Cells Cancelled Tear Drop Cells Cancelled Ovalocytes Cancelled Stomatocytes Cancelled Helmet Cells Cancelled Contreras-Doerun Bodies Cancelled [place] Rings Cancelled [place] Cells Cancelled Acanthocytes (Spur) Cancelled Rouleaux Cancelled Fragmented RBCs Cancelled Schistocytes Cancelled Morphology Comment Cancelled Retic Count PT with INR INR PTT (Actin FS) Sodium Potassium Chloride Carbon Dioxide Anion Gap BUN Creatinine Creat Clearance w eGFR POC Glucometer 331 312 Random Glucose Calcium Total Bilirubin AST ALT Alkaline Phosphatase LD Total Total Protein Albumin Blood Type Antibody Screen Crossmatch 05/14/17 05/14/17 05/14/17 05:40 05:40 05:40 WBC RBC Hgb Hct MCV MCH MCHC RDW Plt Count MPV Neutrophils % Lymphocytes % Monocytes % Eosinophils % Basophils % Hypersegmented Neuts Hypochromia Toxic Granulation Dohle Bodies Polychromasia Poikilocytosis Basophilic Stippling Anisocytosis Microcytosis Macrocytosis Spherocytes Siderocytes Sickle Cells Target Cells Tear Drop Cells Ovalocytes Stomatocytes Helmet Cells Contreras-Doerun Bodies [place] Rings Nickie Cells Acanthocytes (Spur) Rouleaux Fragmented RBCs Schistocytes Morphology Comment Retic Count 1.50 PT with INR INR PTT (Actin FS) Sodium 142 Potassium 3.4 L Chloride 106 Carbon Dioxide 23 Anion Gap 13 BUN 66 H Creatinine 2.3 H Creat Clearance w eGFR 20.62 POC Glucometer Random Glucose 44 L* D Calcium 7.3 L Total Bilirubin 0.7 AST 7 L ALT 20 Alkaline Phosphatase 62 LD Total 338 H D Total Protein 5.2 L Albumin 2.6 L Blood Type Antibody Screen Crossmatch 05/14/17 05/14/17 05/14/17 06:22 07:12 07:45 WBC RBC Hgb Hct MCV MCH MCHC RDW Plt Count MPV Neutrophils % Lymphocytes % Monocytes % Eosinophils % Basophils % Hypersegmented Neuts Hypochromia Toxic Granulation Dohle Bodies Polychromasia Poikilocytosis Basophilic Stippling Anisocytosis Microcytosis Macrocytosis Spherocytes Siderocytes Sickle Cells Target Cells Tear Drop Cells Ovalocytes Stomatocytes Helmet Cells Contreras-Doerun Bodies [place] Rings [place] Cells Acanthocytes (Spur) Rouleaux Fragmented RBCs Schistocytes Morphology Comment Retic Count PT with INR 10.70 INR 0.95 PTT (Actin FS) 24.4 L Sodium Potassium Chloride Carbon Dioxide Anion Gap BUN Creatinine Creat Clearance w eGFR POC Glucometer 49 151 Random Glucose Calcium Total Bilirubin AST ALT Alkaline Phosphatase LD Total Total Protein Albumin Blood Type Antibody Screen Crossmatch 05/14/17 05/14/17 10:00 12:10 WBC RBC Hgb Hct MCV MCH MCHC RDW Plt Count MPV Neutrophils % Lymphocytes % Monocytes % Eosinophils % Basophils % Hypersegmented Neuts Hypochromia Toxic Granulation Dohle Bodies Polychromasia Poikilocytosis Basophilic Stippling Anisocytosis Microcytosis Macrocytosis Spherocytes Siderocytes Sickle Cells Target Cells Tear Drop Cells Ovalocytes Stomatocytes Helmet Cells Contreras-Doerun Bodies [place] Rings Nickie Cells Acanthocytes (Spur) Rouleaux Fragmented RBCs Schistocytes Morphology Comment Retic Count PT with INR INR PTT (Actin FS) Sodium Potassium Chloride Carbon Dioxide Anion Gap BUN Creatinine Creat Clearance w eGFR POC Glucometer 164 Random Glucose Calcium Total Bilirubin AST ALT Alkaline Phosphatase LD Total Total Protein Albumin Blood Type O POSITIVE Antibody Screen Negative Crossmatch See Detail Active Medications Generic Name Dose Route Start Last Admin Trade Name Freq PRN Reason Stop Dose Admin Albumin Human 87.5 gm 05/14/17 10:00 Plasbumin-5 - IVPB 05/18/17 10:01 Q2D MILES Albuterol/Ipratropium 1 amp 05/11/17 12:45 Duoneb - NEB Q6H PRN SHORTNESS OF BREATH Clotrimazole 1 applic 05/11/17 10:00 05/14/17 10:17 Lotrisone Cream (Small Tube) TP 1 applic BID MILES Administration Collagenase 1 applic 05/12/17 17:00 05/14/17 10:17 Santyl - TP 1 applic DAILY MILES Administration Docusate Sodium 100 mg 05/11/17 22:00 05/14/17 10:15 Colace - PO 100 mg BID MILES Administration Heparin Sodium (Porcine) 5,000 unit 05/12/17 23:00 05/14/17 06:27 Heparin - SQ 5,000 unit TID MILES Administration Hydralazine HCl 25 mg 05/10/17 22:30 05/14/17 10:15 Apresoline - PO 25 mg BID MILES Administration CEFTRIAXONE 1 G/50 ML PREMIX 50 mls @ 100 mls/hr 05/12/17 22:30 05/14/17 10:15 Ceftriaxone 1 Gm-D5w Bag IVPB 100 mls/hr DAILY MILES Administration Insulin Aspart 1 vial 10/21/17 07:00 05/14/17 12:13 Novolog Vial Sliding Scale - SQ Not Given ACHS [facility] Protocol Insulin Detemir 8 units 05/15/17 07:00 Levemir Vial SQ DAILY@0700 [facility] Levothyroxine Sodium 100 mcg 05/11/17 07:00 05/14/17 06:27 Synthroid - PO 100 mcg DAILY@0700 MILES Administration Pantoprazole Sodium 40 mg 05/11/17 13:00 05/14/17 10:33 Protonix - PO Not Given DAILY MILES Prednisone 60 mg 05/13/17 10:00 05/14/17 10:15 Deltasone - PO 60 mg DAILY MILES Administration Valacyclovir HCl 500 mg 05/11/17 10:00 05/14/17 10:18 Valtrex - PO 500 mg BID MILES Administration ASSESSMENT/PLAN: 77 y/o F w/PMH of HTN, chronic venous statis ulcers of lower extremities, polymyalgia rheumatica, hypothyroidism admitted for hemoptysis secondary to recently diagnosed microscopic polyangitis. -Hemoptysis secondary to microscopic polyangitis -c/w prednisone 60 mg po qd -Dr. Concepcion, rheumatology, following -R femoral cath placed today. -Pt to receive 1 unit PRBC first before beginning plasmapheresis tonight. -c/w valtrex 500 mg po bid -albumin 87.5 g x3 doses as per heme/onc -Acute on chronic kidney disease -likely secondary to microscopic polyangitis -c/w therapy as noted above -monitor Cr - currently stable at 2.3 -albumin 87.5 g x3 doses as per heme/onc -UTI -c/w ceftriaxone -Chronic LE venous stasis ulcers -c/w wound care -Constipation -will need stool softener or pro-motility agent -Hypothyroidism -c/w synthroid -HTN -c/w hydralazine -DM -c/w current management -CHF -c/w current management Visit type - Emergency Visit Emergency Visit: Yes ED Registration Date: 05/12/17 Care time: The patient presented to the Emergency Department on the above date and was hospitalized for further evaluation of their emergent condition. - New Patient This patient is new to me today: No - Critical Care Critical Care patient: No
--- NOTE | 2017-05-14 15:37 | PN ---
Progress Note (short form) - Note Progress Note: seen and examined, feels better O/E: NAD NCAT +wheezes bilaterally Ulcers+ LE +swelling LE. +femoral catheter rt groin. Last Vital Signs Temp Pulse Resp BP Pulse Ox 98 F 74 20 148/78 96 05/14/17 13:00 05/14/17 13:00 05/14/17 13:00 05/14/17 13:00 05/14/17 09:00 CBC, BMP 05/14/17 05:40 05/14/17 05:40 Current Medications Generic Name Dose Route Start Last Admin Trade Name Freq PRN Reason Stop Dose Admin Albumin Human 87.5 gm 05/14/17 10:00 Plasbumin-5 - IVPB 05/18/17 10:01 Q2D MILES Albuterol/Ipratropium 1 amp 05/11/17 12:45 Duoneb - NEB Q6H PRN SHORTNESS OF BREATH Clotrimazole 1 applic 05/11/17 10:00 05/14/17 10:17 Lotrisone Cream (Small Tube) TP 1 applic BID MILES Administration Collagenase 1 applic 05/12/17 17:00 05/14/17 10:17 Santyl - TP 1 applic DAILY MILES Administration Docusate Sodium 100 mg 05/11/17 22:00 05/14/17 10:15 Colace - PO 100 mg BID MILES Administration Heparin Sodium (Porcine) 5,000 unit 05/12/17 23:00 05/14/17 15:02 Heparin - SQ 5,000 unit TID MILES Administration Hydralazine HCl 25 mg 05/10/17 22:30 05/14/17 10:15 Apresoline - PO 25 mg BID MILES Administration CEFTRIAXONE 1 G/50 ML PREMIX 50 mls @ 100 mls/hr 05/12/17 22:30 05/14/17 10:15 Ceftriaxone 1 Gm-D5w Bag IVPB 100 mls/hr DAILY MILES Administration Insulin Aspart 1 vial 05/11/17 07:00 05/14/17 12:13 Novolog Vial Sliding Scale - SQ Not Given ACHS [facility] Protocol Insulin Detemir 8 units 05/15/17 07:00 Levemir Vial SQ DAILY@0700 MILES Levothyroxine Sodium 100 mcg 05/11/17 07:00 05/14/17 06:27 Synthroid - PO 100 mcg DAILY@0700 MILES Administration Pantoprazole Sodium 40 mg 05/11/17 13:00 05/14/17 10:33 Protonix - PO Not Given DAILY MILES Prednisone 60 mg 05/13/17 10:00 05/14/17 10:15 Deltasone - PO 60 mg DAILY MILES Administration Valacyclovir HCl 500 mg 05/11/17 10:00 05/14/17 10:18 Valtrex - PO 500 mg BID MILES Administration PRBC today PLEX started today , 7 sessions every other day US PAULY, noted, will c.w SQ heparin q8h for now , to repeat vascular f.u cytopenias, multifactorial d/w Rheum and Renal RN
[2017-05-14] MEDS ORDERED: CALCIUM GLUCONATE 10% - 1,000 MG/10 ML VIAL IVPB PRN (16:00)
--- NOTE | 2017-05-14 16:44 | PN ---
Progress Note (short form) - Note Progress Note: PULMONARY LYING COMFORTABLY IN BED PLASMAPHARESIS UNDERWAY NO FURTHER HEMOPTYSIS SINCE ADMISSION HGB/PLTS ARE DECREASING VSS/AFEBRILE ANICTERIC SCATTERED MINIMAL EXP RHONCHI POSTERIOR S1S2 BS+ B/L KOWER EXT ULCERS BANDAGED LABS/MEDS/NOTES/IMAGES/MICRO REVIEWED HGB 7.9/PLTS 70K (1) Hemoptysis Code(s): R04.2 - HEMOPTYSIS (2) Acute kidney injury Code(s): N17.9 - ACUTE KIDNEY FAILURE, UNSPECIFIED (3) Bilateral pulmonary infiltrates on chest x-ray Code(s): R91.8 - OTHER NONSPECIFIC ABNORMAL FINDING OF LUNG FIELD Assessment/Plan QUANTITATE AMOUNT OF HEMOPTYSIS INFILTRATES LIKELY DUE TO ABOVE CONTINUE PREDNISONE/RITUXIMAB BRONCHODILATORS/O2 TO KEEP SAT GREATER THAN 90% MONITOR HGB/PLTS NORMAL TRANSFUSION THRESHOLD PLASMAPHARESIS Nisa MAYS MD Problem List - Problems (1) Hemoptysis Code(s): R04.2 - HEMOPTYSIS (2) Acute kidney injury Code(s): N17.9 - ACUTE KIDNEY FAILURE, UNSPECIFIED (3) Bilateral pulmonary infiltrates on chest x-ray Code(s): R91.8 - OTHER NONSPECIFIC ABNORMAL FINDING OF LUNG FIELD
--- NOTE | 2017-05-14 19:54 | PN ---
Teaching Attending Note Name of Resident: Jorge Newton (Nephrology) ATTENDING PHYSICIAN STATEMENT I saw and evaluated the patient. I reviewed the resident's note and discussed the case with the resident. I agree with the resident's findings and plan as documented. Nephrology Pt seen and examined at bedside. She is currently getting plasma exchange. Current Medications Generic Name Dose Route Start Last Admin Trade Name Freq PRN Reason Stop Dose Admin Albumin Human 87.5 gm 05/14/17 10:00 05/14/17 14:00 Plasbumin-5 - IVPB 05/18/17 10:01 Not Given Q2D MILES Albuterol/Ipratropium 1 amp 05/11/17 12:45 Duoneb - NEB Q6H PRN SHORTNESS OF BREATH Calcium Gluconate 1,000 mg 05/14/17 16:00 Calcium Gluconate 10% - IVPB ONCE PRN Clotrimazole 1 applic 05/11/17 10:00 05/14/17 10:17 Lotrisone Cream (Small Tube) TP 1 applic BID MILES Administration Collagenase 1 applic 05/12/17 17:00 05/14/17 10:17 Santyl - TP 1 applic DAILY MILES Administration Diphenhydramine HCl 25 mg 05/14/17 15:40 05/14/17 15:50 Benadryl Injection - IVPB 25 mg ONCE PRN Administration Docusate Sodium 100 mg 05/11/17 22:00 05/14/17 10:15 Colace - PO 100 mg BID MILES Administration Heparin Sodium (Porcine) 5,000 unit 05/12/17 23:00 05/14/17 15:02 Heparin - SQ 5,000 unit TID MILES Administration Hydralazine HCl 25 mg 05/10/17 22:30 05/14/17 10:15 Apresoline - PO 25 mg BID MILES Administration CEFTRIAXONE 1 G/50 ML PREMIX 50 mls @ 100 mls/hr 05/12/17 22:30 05/14/17 10:15 Ceftriaxone 1 Gm-D5w Bag IVPB 100 mls/hr DAILY MILES Administration Insulin Aspart 1 vial 05/11/17 07:00 05/14/17 17:06 Novolog Vial Sliding Scale - SQ 6 units ACHS MILES Administration Protocol Insulin Detemir 8 units 05/15/17 07:00 Levemir Vial SQ DAILY@0700 MIL[facility] Levothyroxine Sodium 100 mcg 05/11/17 07:00 05/14/17 06:27 Synthroid - PO 100 mcg DAILY@0700 MILES Administration Pantoprazole Sodium 40 mg 05/11/17 13:00 05/14/17 10:33 Protonix - PO Not Given DAILY MILES Prednisone 60 mg 05/13/17 10:00 05/14/17 10:15 Deltasone - PO 60 mg DAILY MILES Administration Valacyclovir HCl 500 mg 05/11/17 10:00 05/14/17 10:18 Valtrex - PO 500 mg BID MILES Administration Last Vital Signs Temp Pulse Resp BP Pulse Ox 98 F 60 18 134/69 96 05/14/17 17:00 05/14/17 17:00 05/14/17 17:00 05/14/17 17:00 05/14/17 09:00 Laboratory Tests 05/14/17 05/14/17 05/14/17 05:40 05:40 12:10 Hgb 7.7 L Creatinine 2.3 H POC Glucometer 164 cardio s1s2 pulm clear GI soft ext edema neuro awake Impression 1. MYRTLE 2. lower extremity ulcer 3. hypothyroid 4. HTN 5. polymyalgia 6. anemia 7. vasculitis microscopic polyangitis 8. thrombophlebitis 9. hemoptysis Plan - plasma exchange today - prbc trasnfusion - repeat labs in am - rheum follow up, pt scheduled for Ritux tomorrow - monitor calcium levels, will give a dose today - discussed with biomedical equipment tech - case discussed with pt - will follow closely Dr Hamilton
[2017-05-14 21:09] LABS: MCH 29.9 pg (25.7-33.7); MCHC 34.4 g/dl (32.0-36.0); MEAN CELL VOLUME 86.9 fl (80-96); MEAN PLT VOLUME 8.4 fl (7.5-11.1); PLATELET COUNT 91 K/MM3 (134-434); RDW 22.2 % (11.6-15.6); WHITE BLOOD COUNT 10.1 K/mm3 (4.0-10.0)
[2017-05-14 21:35] LABS: ANISOCYTOSIS 2+; HYPOCHROMIA FEW; MICROCYTOSIS 1+; PLATELET ESTIMATE DECREASED (NORMAL); POLYCHROMASIA F
[2017-05-14 21:36] LABS: INR 1.12 (0.82-1.09); PROTHROMBIN TIME (PATIENT) 12.6 SEC (9.98-11.88)
[2017-05-14 21:39] LABS: ACTIVATED PTT 30.6 SECONDS (26.9-34.4)
[2017-05-14 21:45] LABS: ALBUMIN 3.3 g/dl (3.4-5.0); ALK PHOS 64 U/L (45-117); ANION GAP 10 (8-16); CALCIUM 7.1 mg/dL (8.5-10.1); CO2 24 mmol/L (21-32); CREATININE 2.2 mg/dL (0.55-1.02); MAGNESIUM 1.9 mg/dL (1.8-2.4); SGOT/AST 8 U/L (15-37); SGPT/ALT 18 U/L (12-78); TOT PROT 5.3 g/dl (6.4-8.2)
[2017-05-14] MEDS ORDERED: INSULIN (NOVOLOG) ASPART 100 UNITS/ML 10ML VIAL ONE (21:46)
[2017-05-14] MEDS: CALCIUM 500MG/VIT-D 200 UNITS COMBO TABLET (FP) PO SCH (21:54)
[2017-05-14 22:14] LABS: GLUCOSE,RANDOM 346 mg/dL (74-106)
[2017-05-15] MEDS: HEPARIN NA (PORCINE) 5,000 UNITS/ML 1ML VIAL SQ SCH ×3 (06:28→22:14)
[2017-05-15] MEDS: INSULIN SLIDING SCALE (NOVOLOG) 1 VIAL SQ SCH ×4 (06:28→22:14)
[2017-05-15] MEDS: LEVOTHYROXINE NA 100 MCG TABLET (FP) PO SCH (06:28)
[2017-05-15] MEDS: INSULIN DETEMIR 100 UNITS/ML MDV SQ SCH (06:28)
[2017-05-15] MEDS ORDERED: INSULIN (NOVOLOG) ASPART 100 UNITS/ML 10ML VIAL ONE (06:35)
[2017-05-15 07:38] LABS: BASOPHIL 0.2 % (0-2.0); EOSINOPHIL 0.5 % (0-4.5); MCH 29.9 pg (25.7-33.7); MCHC 34.3 g/dl (32.0-36.0); MEAN PLT VOLUME 8.6 fl (7.5-11.1); NEUTROPHILS 86.7 % (42.8-82.8); PLATELET COUNT 98 K/MM3 (134-434); RDW 23.1 % (11.6-15.6); WHITE BLOOD COUNT 9.4 K/mm3 (4.0-10.0)
[2017-05-15 08:04] LABS: ANION GAP 10 (8-16); CALCIUM 7.7 mg/dL (8.5-10.1); CO2 26 mmol/L (21-32); CREATININE 1.9 mg/dL (0.55-1.02); GLUCOSE,RANDOM 90 mg/dL (74-106); LDH 245 U/L (84-246); SGOT/AST 7 U/L (15-37); SGPT/ALT 15 U/L (12-78); TOT PROT 4.9 g/dl (6.4-8.2)
[2017-05-15 08:07] LABS: ALK PHOS 47 U/L (45-117); BILIRUBIN,TOTAL 0.9 mg/dL (0.2-1.0)
--- NOTE | 2017-05-15 09:35 | PN ---
Physical Exam: SUBJECTIVE: --NEPHROLOGY PROGRESS NOTE-- Patient seen and examined at bedside. Pt received 1 unit PRBC yesterday and is s /p first plasmapheresis yesterday. Pt c/o of pain at L buttocks. No acute events overnight. OBJECTIVE: Vital Signs Temperature 97.9 F 05/15/17 06:09 Pulse Rate 65 05/15/17 06:09 Respiratory Rate 19 05/15/17 06:09 Blood Pressure 143/62 05/15/17 06:09 O2 Sat by Pulse Oximetry (%) 96 05/14/17 21:00 GENERAL: The patient is awake, alert, and fully oriented, in no acute distress. ENT: Ears normal, nares patent LUNGS: Breath sounds equal, clear to auscultation bilaterally HEART: Regular rate and rhythm, S1, S2. 2/6 systolic murmur best heard in aortic region. ABDOMEN: Soft, nontender, nondistended, normoactive bowel sounds EXTREMITIES: LLE with 2+ pitting edema. RLE with 1+ pitting edema. R femoral catheter in place. NEUROLOGICAL: Normal speech, gait not observed. PSYCH: Normal mood, normal affect. SKIN: Warm, dry. L buttocks with hard lesion. Laboratory Results - last 24 hr 05/14/17 05/14/17 05/14/17 05:40 10:00 12:10 WBC RBC Hgb Hct MCV MCH MCHC RDW Plt Count MPV Neutrophils % Lymphocytes % Monocytes % Eosinophils % Basophils % Hypochromia Platelet Estimate Platelet Comment Polychromasia Anisocytosis Microcytosis Retic Count PT with INR INR PTT (Actin FS) Fibrinogen Sodium Potassium Chloride Carbon Dioxide Anion Gap BUN Creatinine Creat Clearance w eGFR POC Glucometer 164 Random Glucose Calcium Magnesium Total Bilirubin AST ALT Alkaline Phosphatase LD Total 338 H D Total Protein Albumin Blood Type O POSITIVE Antibody Screen Negative Crossmatch See Detail 05/14/17 05/14/17 05/14/17 16:50 20:45 20:45 WBC 10.1 H RBC 2.98 L Hgb 8.9 L D Hct 25.9 L MCV 86.9 MCH 29.9 MCHC 34.4 RDW 22.2 H D Plt Count 91 L MPV 8.4 Neutrophils % Lymphocytes % Monocytes % Eosinophils % Basophils % Hypochromia Few Platelet Estimate Decreased Platelet Comment No clumping noted Polychromasia F Anisocytosis 2+ Microcytosis 1+ Retic Count PT with INR 12.60 H INR 1.12 PTT (Actin FS) 30.6 Fibrinogen 184.0 L D Sodium Potassium Chloride Carbon Dioxide Anion Gap BUN Creatinine Creat Clearance w eGFR POC Glucometer 320 Random Glucose Calcium Magnesium Total Bilirubin AST ALT Alkaline Phosphatase LD Total Total Protein Albumin Blood Type Antibody Screen Crossmatch 05/14/17 05/14/17 05/15/17 20:45 21:53 06:25 WBC RBC Hgb Hct MCV MCH MCHC RDW Plt Count MPV Neutrophils % Lymphocytes % Monocytes % Eosinophils % Basophils % Hypochromia Platelet Estimate Platelet Comment Polychromasia Anisocytosis Microcytosis Retic Count 1.25 D PT with INR INR PTT (Actin FS) Fibrinogen Sodium 140 Potassium 4.5 D Chloride 106 Carbon Dioxide 24 Anion Gap 10 BUN 58 H Creatinine 2.2 H Creat Clearance w eGFR 21.70 POC Glucometer 377 Random Glucose 346 H* D Calcium 7.1 L Magnesium 1.9 Total Bilirubin 1.0 D AST 8 L ALT 18 Alkaline Phosphatase 64 LD Total Total Protein 5.3 L Albumin 3.3 L D Blood Type Antibody Screen Crossmatch 05/15/17 05/15/17 05/15/17 06:25 06:25 06:25 WBC 9.4 RBC 2.89 L Hgb 8.6 L Hct 25.2 L MCV 87.0 MCH 29.9 MCHC 34.3 RDW 23.1 H Plt Count 98 L MPV 8.6 Neutrophils % 86.7 H Lymphocytes % 8.6 D Monocytes % 4.0 Eosinophils % 0.5 Basophils % 0.2 Hypochromia Platelet Estimate Platelet Comment Polychromasia Anisocytosis Microcytosis Retic Count PT with INR INR PTT (Actin FS) Fibrinogen Sodium 145 Potassium 3.8 Chloride 109 H Carbon Dioxide 26 Anion Gap 10 BUN 53 H Creatinine 1.9 H Creat Clearance w eGFR 25.70 POC Glucometer 66 Random Glucose 90 D Calcium 7.7 L Magnesium Total Bilirubin 0.9 AST 7 L ALT 15 Alkaline Phosphatase 47 D LD Total 245 D Total Protein 4.9 L Albumin 3.0 L Blood Type Antibody Screen Crossmatch Active Medications Generic Name Dose Route Start Last Admin Trade Name Freq PRN Reason Stop Dose Admin Albumin Human 87.5 gm 05/14/17 10:00 05/14/17 14:00 Plasbumin-5 - IVPB 05/18/17 10:01 Not Given Q2D MILES Albuterol/Ipratropium 1 amp 05/11/17 12:45 Duoneb - NEB Q6H PRN SHORTNESS OF BREATH Calcium Carbonate/Cholecalciferol 2 tab 05/14/17 20:00 05/14/17 21:54 Os-Russ 500+D - PO 2 tab DAILY MILES Administration Calcium Gluconate 1,000 mg 05/14/17 16:00 Calcium Gluconate 10% - IVPB ONCE PRN Clotrimazole 1 applic 05/11/17 10:00 05/14/17 21:55 Lotrisone Cream (Small Tube) TP 1 applic BID MILES Administration Collagenase 1 applic 05/12/17 17:00 05/14/17 10:17 Santyl - TP 1 applic DAILY MILES Administration Diphenhydramine HCl 25 mg 05/14/17 15:40 05/14/17 15:50 Benadryl Injection - IVPB 25 mg ONCE PRN Administration Docusate Sodium 100 mg 05/11/17 22:00 05/14/17 21:54 Colace - PO 100 mg BID MILES Administration Heparin Sodium (Porcine) 5,000 unit 05/14/17 22:00 05/15/17 06:28 Heparin - SQ 5,000 unit TID MILES Administration Hydralazine HCl 25 mg 05/10/17 22:30 05/14/17 21:54 Apresoline - PO 25 mg BID MILES Administration CEFTRIAXONE 1 G/50 ML PREMIX 50 mls @ 100 mls/hr 05/12/17 22:30 05/14/17 10:15 Ceftriaxone 1 Gm-D5w Bag IVPB 100 mls/hr DAILY MILES Administration Insulin Aspart 1 vial 05/11/17 07:00 05/15/17 06:28 Novolog Vial Sliding Scale - SQ Not Given ACHS [facility] Protocol Insulin Detemir 8 units 05/15/17 07:00 05/15/17 06:28 Levemir Vial SQ Not Given DAILY@0700 [facility] Levothyroxine Sodium 100 mcg 05/11/17 07:00 05/15/17 06:28 Synthroid - PO 100 mcg DAILY@0700 MILES Administration Pantoprazole Sodium 40 mg 05/11/17 13:00 05/14/17 10:33 Protonix - PO Not Given DAILY MILES Prednisone 60 mg 05/13/17 10:00 05/14/17 10:15 Deltasone - PO 60 mg DAILY MILES Administration Valacyclovir HCl 500 mg 05/11/17 10:00 05/14/17 21:54 Valtrex - PO 500 mg BID MILES Administration ASSESSMENT/PLAN: 77 y/o F w/PMH of HTN, chronic venous statis ulcers of lower extremities, polymyalgia rheumatica, hypothyroidism admitted for hemoptysis secondary to recently diagnosed microscopic polyangitis. -Hemoptysis secondary to microscopic polyangitis -c/w prednisone 60 mg po qd -Dr. Concepcion, rheumatology, following -R femoral cath placed 05/14/17 -s/p 1 unit PRBC and first plasmapheresis on 05/14. Pt will get plasmapheresis 7 times. -c/w chemo s/p plasmapheresis x7 -c/w valtrex 500 mg po bid -Acute on chronic kidney disease -improving - Cr 1.9 today compared to 2.2 yesterday -likely secondary to microscopic polyangitis -c/w therapy as noted above -L buttocks lesion -consider ID consult, surgical consult, U/S of lesion. -hard and tender to touch -UTI -c/w ceftriaxone -Chronic LE venous stasis ulcers -c/w wound care -Constipation -will need stool softener or pro-motility agent -Hypothyroidism -c/w synthroid -HTN -c/w hydralazine -DM -c/w current management -CHF -c/w current management Visit type - Emergency Visit Emergency Visit: Yes ED Registration Date: 05/12/17 Care time: The patient presented to the Emergency Department on the above date and was hospitalized for further evaluation of their emergent condition. - New Patient This patient is new to me today: No - Critical Care Critical Care patient: No
[2017-05-15] MEDS ORDERED: PT OWN MED DRAWER 7, Y5N ONE ×2 (10:38→21:45)
[2017-05-15] MEDS: CALCIUM 500MG/VIT-D 200 UNITS COMBO TABLET (FP) PO SCH (10:50)
[2017-05-15] MEDS: PANTOPRAZOLE 40 MG TABLET (FP) PO SCH (10:50)
[2017-05-15] MEDS: hydrALAZINE HCL 25 MG TABLET (FP) PO SCH ×2 (10:50→22:14)
[2017-05-15] MEDS: predniSONE 20 MG TABLET (UD) PO SCH (10:50)
[2017-05-15] MEDS: DOCUSATE SODIUM 100 MG CAPSULE (FP) PO SCH ×3 (10:50→22:15)
[2017-05-15] MEDS: valACYclovir HCL 500 MG TABLET (FP) PO SCH ×2 (10:51→22:14)
[2017-05-15] MEDS: COLLAGENASE CLOSTRIDIUM HIST. 30 GRAMS TUBE TP SCH (10:55)
[2017-05-15] MEDS: CLOTRIMAZOLE/BETAMET DIPROP 15 GM TUBE TP SCH ×2 (10:55→22:14)
[2017-05-15] MEDS ORDERED: VANCOMYCIN 1,250 MG in DEXTROSE 5%-WATER - 250 ML IVPB ONE (11:52)
--- NOTE | 2017-05-15 12:17 | PN ---
Teaching Attending Note Name of Resident: Jorge Newton (Nephrology) ATTENDING PHYSICIAN STATEMENT I saw and evaluated the patient. I reviewed the resident's note and discussed the case with the resident. I agree with the resident's findings and plan as documented. Nephrology Pt seen and examined at bedside. She tolerated the plasma exchange yesterday. Current Medications Generic Name Dose Route Start Last Admin Trade Name Freq PRN Reason Stop Dose Admin Albumin Human 87.5 gm 05/14/17 10:00 05/14/17 14:00 Plasbumin-5 - IVPB 05/18/17 10:01 Not Given Q2D MILES Albuterol/Ipratropium 1 amp 05/11/17 12:45 Duoneb - NEB Q6H PRN SHORTNESS OF BREATH Calcium Carbonate/Cholecalciferol 2 tab 05/14/17 20:00 05/15/17 10:50 Os-Russ 500+D - PO 2 tab DAILY MILES Administration Calcium Gluconate 1,000 mg 05/14/17 16:00 Calcium Gluconate 10% - IVPB ONCE PRN Clotrimazole 1 applic 05/11/17 10:00 05/15/17 10:55 Lotrisone Cream (Small Tube) TP 1 applic BID MILES Administration Collagenase 1 applic 05/12/17 17:00 05/15/17 10:55 Santyl - TP 1 applic DAILY MILES Administration Diphenhydramine HCl 25 mg 05/14/17 15:40 05/14/17 15:50 Benadryl Injection - IVPB 25 mg ONCE PRN Administration Docusate Sodium 100 mg 05/11/17 22:00 05/15/17 10:50 Colace - PO 100 mg BID MILES Administration Heparin Sodium (Porcine) 5,000 unit 05/14/17 22:00 05/15/17 06:28 Heparin - SQ 5,000 unit TID MILES Administration Hydralazine HCl 25 mg 05/10/17 22:30 05/15/17 10:50 Apresoline - PO 25 mg BID MILES Administration CEFTRIAXONE 1 G/50 ML PREMIX 50 mls @ 100 mls/hr 05/12/17 22:30 05/14/17 10:15 Ceftriaxone 1 Gm-D5w Bag IVPB 100 mls/hr DAILY MILES Administration Vancomycin HCl 1,250 mg/ 250 mls @ 166.667 mls/hr 05/15/17 11:52 Dextrose IVPB 05/15/17 13:21 ONCE ONE Protocol Insulin Aspart 1 vial 05/11/17 07:00 05/15/17 06:28 Novolog Vial Sliding Scale - SQ Not Given ACHS [facility] Protocol Insulin Detemir 8 units 05/15/17 07:00 05/15/17 06:28 Levemir Vial SQ Not Given DAILY@0700 [facility] Levothyroxine Sodium 100 mcg 05/11/17 07:00 05/15/17 06:28 Synthroid - PO 100 mcg DAILY@0700 MILES Administration Pantoprazole Sodium 40 mg 05/11/17 13:00 05/15/17 10:50 Protonix - PO 40 mg DAILY MILES Administration Prednisone 60 mg 05/13/17 10:00 05/15/17 10:50 Deltasone - PO 60 mg DAILY MILES Administration Valacyclovir HCl 500 mg 05/11/17 10:00 05/15/17 10:51 Valtrex - PO 500 mg BID MILES Administration Laboratory Tests 05/15/17 06:25 Creatinine 1.9 H cardio s1s2 pulm clear GI soft ext edema neuro awake Impression 1. MYRTLE 2. lower extremity ulcer 3. hypothyroid 4. HTN 5. polymyalgia 6. anemia 7. vasculitis microscopic polyangitis 8. thrombophlebitis 9. hemoptysis Plan - pt to continue plasma exchange treatment - monitor calcium levels - monitor renal function closely - rhueum follow up, ritux held until plasma completed - discussed with medical equipment sales - case discussed with pt - will follow closely
[2017-05-15] MEDS: CEFTRIAXONE 1 G/50 ML PREMIX 50 ML IVPB SCH (12:39)
--- NOTE | 2017-05-15 14:24 | PN ---
Progress Note (short form) - Note Progress Note: seen and examined, feels better O/E: NAD NCAT +wheezes bilaterally Ulcers+ LE +swelling LE. +femoral catheter rt groin. CBC, BMP 05/15/17 06:25 05/15/17 06:25 Current Medications Generic Name Dose Route Start Last Admin Trade Name Freq PRN Reason Stop Dose Admin Albumin Human 87.5 gm 05/14/17 10:00 05/14/17 14:00 Plasbumin-5 - IVPB 05/18/17 10:01 Not Given Q2D MILES Albuterol/Ipratropium 1 amp 05/11/17 12:45 Duoneb - NEB Q6H PRN SHORTNESS OF BREATH Calcium Carbonate/Cholecalciferol 2 tab 05/14/17 20:00 05/15/17 10:50 Os-Russ 500+D - PO 2 tab DAILY MILES Administration Calcium Gluconate 1,000 mg 05/14/17 16:00 Calcium Gluconate 10% - IVPB ONCE PRN Clotrimazole 1 applic 05/11/17 10:00 05/15/17 10:55 Lotrisone Cream (Small Tube) TP 1 applic BID MILES Administration Collagenase 1 applic 05/12/17 17:00 05/15/17 10:55 Santyl - TP 1 applic DAILY MILES Administration Diphenhydramine HCl 25 mg 05/14/17 15:40 05/14/17 15:50 Benadryl Injection - IVPB 25 mg ONCE PRN Administration Docusate Sodium 100 mg 05/11/17 22:00 05/15/17 10:50 Colace - PO 100 mg BID MILES Administration Heparin Sodium (Porcine) 5,000 unit 05/14/17 22:00 05/15/17 06:28 Heparin - SQ 5,000 unit TID MILES Administration Hydralazine HCl 25 mg 05/10/17 22:30 05/15/17 10:50 Apresoline - PO 25 mg BID MILES Administration Insulin Aspart 1 vial 05/11/17 07:00 05/15/17 06:28 Novolog Vial Sliding Scale - SQ Not Given ACHS [facility] Protocol Insulin Detemir 8 units 05/15/17 07:00 05/15/17 06:28 Levemir Vial SQ Not Given DAILY@0700 [facility] Levothyroxine Sodium 100 mcg 05/11/17 07:00 05/15/17 06:28 Synthroid - PO 100 mcg DAILY@0700 MILES Administration Pantoprazole Sodium 40 mg 05/11/17 13:00 05/15/17 10:50 Protonix - PO 40 mg DAILY MILES Administration Piperacillin Sod/Tazobactam Sod 3.375 gm 05/15/17 14:30 Zosyn 3.375gm Ivpb (Pre-Docked) IVPB Q8H [facility] Protocol Prednisone 60 mg 05/13/17 10:00 05/15/17 10:50 Deltasone - PO 60 mg DAILY MILES Administration Valacyclovir HCl 500 mg 05/11/17 10:00 05/15/17 10:51 Valtrex - PO 500 mg BID MILES Administration Last Vital Signs Temp Pulse Resp BP Pulse Ox 98.4 F 78 20 144/72 96 05/15/17 09:00 05/15/17 09:00 05/15/17 09:00 05/15/17 09:00 05/14/17 21:00 Assessment/Plan: MYRTLE anemia vasculitis microscopic polyangitis Superficial Greater Saphenous thrombosis hemoptysis On steroids, s/p Rituxan 3/4 doses given. 4th dose likely one PLEX completed PLEX Session 1 on 05/14: tolerated well Aim for 7 sessions every other day US LE, noted, will c.w SQ heparin q8h for now f/u counts, presently stable repeat labs in the am d/w Rheum communicated with [facility]
--- NOTE | 2017-05-15 14:29 | PN ---
Progress Note (short form) - Note Progress Note: ID consult dictated imp/reccd 77 year old female with recent diagnosis microscopic polyangiitis- on prednisone and rituxamib, admitted with hemoptysis 05/10 asked to see for buttock induration and right thigh ulcer +MRSA she is currently on ceftriaxone for UTI she has just been started on plasmapharesis yesterday hemoptysis has resolved on PE she has a shallow ulcer on her posterior thigh and a punched out lesion on her thigh with purulent slough- culture +for MRSA she had an area of induration approx 10 cm in length extending to her anus on her left buttock leg ulcers are improved- she is able to walk immunosuppressed patient on plasmapharesis and steroids r/o perirectal abscess pelvic ct scan surgical evaluation vancomycin and zosyn follow vanco levels due to changing renal function continue valtrex for hsv suppression MRSA contact isolation further reccd to follow sulfa allergy - will add mepron for PCP prophylaxis d/w hospitalist- she will contact surgery Problem List - Problems (1) Perirectal abscess Code(s): K61.1 - RECTAL ABSCESS (2) Microscopic polyangiitis Code(s): M31.7 - MICROSCOPIC POLYANGIITIS (3) MRSA (methicillin resistant staph aureus) culture positive Code(s): Z22.322 - CARRIER OR SUSPECTED CARRIER OF METHICILLIN RESIS STAPH
[2017-05-15] MEDS ORDERED: PIPERACILLIN/TAZOB 3.375 GM/50 ML PRE-DOCKED IVPB SCH (14:30)
[2017-05-15] MEDS: PIPERACILLIN/TAZOB 3.375 GM 50 ML IVPB SCH ×2 (16:00→17:50)
--- NOTE | 2017-05-15 16:10 | CONS ---
INFECTIOUS DISEASE CONSULTATION DATE OF CONSULTATION: DATE OF DICTATION: 05/15/2017 This is a 77-year-old woman status post recent admission from April 09 to April 29, during which she was diagnosed with microscopic polyangiitis. She is status post rituximab. She has had 3 doses. She has been maintained on oral steroids. She had an episode of hemoptysis on May 10 and was advised to come to the hospital. There is no history of any fevers or chills. She has no problems with constipation or urination. After admission to the hospital, she was noted to have swelling of the left leg and she had superficial vein thrombosis. She was noted, as well, superficial thrombosis of the right mid and distal saphenous vein. She was started on plasma pheresis, yesterday, after she was seen in consultation by Rheumatology, Nephrology, and Hematology. She was noted to have 2 lesions on the back of her right thigh, one of which had purulence which was cultured and grew MRSA, so I am asked to see her for further evaluation. As well, she had a positive urine culture and complained of some frequency and was started on ceftriaxone for an E coli UTI. Today, she complains of left buttock discomfort. She notices that she has an area of firmness in her left buttock. She denies any fevers or chills and actually her ambulation has improved. On the last admission, she had very painful ulcers of her legs. The ulcers are still present, but are no longer painful. Her past medical history is notable for history of hypertension, pneumonia, renal insufficiency, polymyalgia rheumatica, hypothyroidism, vascular ulcers of her legs. She has had a recent renal biopsy, during her last admission. ALLERGIES: She is allergic to sulfa. MEDICATIONS AN OUTPATIENT: Include Valtrex 500 b.i.d.; prednisone; insulin; levothyroxine; hydralazine; Ecotrin. FAMILY HISTORY: Noncontributory. There is no history of any collagen vascular disease. REVIEW OF SYSTEMS: She denies dysuria, at present. She denies diarrhea or constipation. She is able to move her bowels without pain and she has no fevers or chills. Her hemoptysis has resolved. PHYSICAL EXAMINATION: Vital signs: Her temperature is 98.4, pulse of 78, blood pressure 144/72, respiratory rate is 20. HEENT: She is normocephalic. Her eyes are anicteric. She has no thrush. Neck: Supple. Lungs: Have diminished breath sounds at the bases. Heart: Regular rate and rhythm. Abdomen: Soft. Nontender. She has a right groin Shiley in place for her plasma pheresis. Skin: Her leg ulcers on her right leg, there are minimal openings. Left leg: There is an open ulcer that has diminished in size since her prior admission. On her right posterior thigh, she has one superficial ulcer with open skin; no drainage or erythema. She has a second, deeper, punched-out lesion that has some fibrinous, purulent exudate. As well, along her entire left buttock on the medial aspect, she has firm induration that extends down to her anus. Her labs are notable for white count of 9.4, a hemoglobin of 8.6, platelets are 98,000. INR is 1. BUN and creatinine are 53 and 1.9. Creatinine clearance is approximately 30. Urinalysis has 40 white cells, 61 red cells, blood 3+. Urine culture has E coli resistant to ampicillin only and culture of the thigh wound is growing MRSA and corynebacterium. In summary, this is a 77-year-old woman, immunosuppressed, on plasma pheresis, with a possible nancy-rectal abscess. Would obtain a pelvic CT scan and surgical evaluation. We will treat her with vancomycin and Zosyn. Further recommendations to follow, based on these results. I spoke with the hospitalist who will contact Surgery and I have ordered the CAT scan and antibiotics. Blood cultures have been sent. Overall prognosis is guarded. TALIB NICOLE M.D. [id number]
--- NOTE | 2017-05-15 17:54 | PN ---
Physical Exam: SUBJECTIVE: Patient seen and examined. She says she has tenderness to her buttock, she is feeling cold in the room. OBJECTIVE: Vital Signs Period Temp Pulse Resp BP Sys/Horn Pulse Ox Last 24 Hr 97.8 F-98.4 F 61-78 17-20 143-149/62-73 96-96 PE Neuro: alert,awake, cn 2-12intact Pulm: Basilar crackles CV: S1 s2 rrr no mrg Abd: s nt nd + bs : R buttock medial indurated erythema tender mass, L posterior thigh lesion with purulent discharge, 1.5 x1.2cm Ext: lower ext wounds b/l, LLE edema + 2 Laboratory Results - last 24 hr 05/14/17 05/15/17 05/15/17 21:53 06:25 06:25 WBC RBC Hgb Hct MCV MCH MCHC RDW Plt Count MPV Neutrophils % Lymphocytes % Monocytes % Eosinophils % Basophils % Hypochromia Platelet Estimate Platelet Comment Polychromasia Anisocytosis Microcytosis Retic Count 1.25 D PT with INR INR PTT (Actin FS) Fibrinogen Sodium 145 Potassium 3.8 Chloride 109 H Carbon Dioxide 26 Anion Gap 10 BUN 53 H Creatinine 1.9 H Creat Clearance w eGFR 25.70 POC Glucometer 377 Random Glucose 90 D Calcium 7.7 L Magnesium Total Bilirubin 0.9 AST 7 L ALT 15 Alkaline Phosphatase 47 D LD Total 245 D Total Protein 4.9 L Albumin 3.0 L 05/15/17 05/15/17 06:25 06:25 WBC 9.4 RBC 2.89 L Hgb 8.6 L Hct 25.2 L MCV 87.0 MCH 29.9 MCHC 34.3 RDW 23.1 H Plt Count 98 L MPV 8.6 Neutrophils % 86.7 H Lymphocytes % 8.6 D Monocytes % 4.0 Eosinophils % 0.5 Basophils % 0.2 Hypochromia Platelet Estimate Platelet Comment Polychromasia Anisocytosis Microcytosis Retic Count PT with INR INR PTT (Actin FS) Fibrinogen Sodium Potassium Chloride Carbon Dioxide Anion Gap BUN Creatinine Creat Clearance w eGFR POC Glucometer 66 Random Glucose Calcium Magnesium Total Bilirubin AST ALT Alkaline Phosphatase LD Total Total Protein Albumin Active Medications Generic Name Dose Route Start Last Admin Trade Name Freq PRN Reason Stop Dose Admin Albumin Human 87.5 gm 05/14/17 10:00 05/14/17 14:00 Plasbumin-5 - IVPB 05/18/17 10:01 Not Given Q2D MILES Albuterol/Ipratropium 1 amp 05/11/17 12:45 Duoneb - NEB Q6H PRN SHORTNESS OF BREATH Atovaquone 1,500 mg 05/16/17 08:00 Mepron - PO DAILY@0800 MILES Calcium Carbonate/Cholecalciferol 2 tab 05/14/17 20:00 05/15/17 10:50 Os-Russ 500+D - PO 2 tab DAILY MILES Administration Calcium Gluconate 1,000 mg 05/14/17 16:00 Calcium Gluconate 10% - IVPB ONCE PRN Clotrimazole 1 applic 05/11/17 10:00 05/15/17 10:55 Lotrisone Cream (Small Tube) TP 1 applic BID MILES Administration Collagenase 1 applic 05/12/17 17:00 05/15/17 10:55 Santyl - TP 1 applic DAILY MILES Administration Diphenhydramine HCl 25 mg 05/14/17 15:40 05/14/17 15:50 Benadryl Injection - IVPB 25 mg ONCE PRN Administration Docusate Sodium 100 mg 05/11/17 22:00 05/15/17 10:50 Colace - PO 100 mg BID MILES Administration Heparin Sodium (Porcine) 5,000 unit 05/14/17 22:00 05/15/17 16:00 Heparin - SQ 5,000 unit TID MILES Administration Hydralazine HCl 25 mg 05/10/17 22:30 05/15/17 10:50 Apresoline - PO 25 mg BID MILES Administration Piperacillin/Tazobactam/Dextrose 50 mls @ 100 mls/hr 05/15/17 14:30 05/15/17 16 :00 Zosyn 3.375gm Ivpb (Premix) IVPB 100 mls/hr Q8H-IV MILES Administration Insulin Aspart 1 vial 05/11/17 07:00 05/15/17 11:00 Novolog Vial Sliding Scale - SQ Not Given ACHS [facility] Protocol Insulin Detemir 8 units 05/15/17 07:00 05/15/17 06:28 Levemir Vial SQ Not Given DAILY@0700 [facility] Levothyroxine Sodium 100 mcg 05/11/17 07:00 05/15/17 06:28 Synthroid - PO 100 mcg DAILY@0700 MILES Administration Pantoprazole Sodium 40 mg 05/11/17 13:00 05/15/17 10:50 Protonix - PO 40 mg DAILY MILES Administration Prednisone 60 mg 05/13/17 10:00 05/15/17 10:50 Deltasone - PO 60 mg DAILY MILES Administration Valacyclovir HCl 500 mg 05/11/17 10:00 05/15/17 10:51 Valtrex - PO 500 mg BID MILES Administration Microbiology 05/12/17 16:40 Wound Gram Stain - Final 05/12/17 16:40 Wound Wound Culture - Final S Aureus Diphtheroid/Corynebacterium 05/12/17 20:45 Urine - Urine Clean Catch Urine Culture - Final Escherichia Coli 05/11/17 02:00 Blood - Peripheral Venous Blood Culture - Preliminary NO GROWTH OBTAINED AFTER 96 HOURS, INCUBATION TO CONTINUE FOR 1 DAYS. 05/11/17 02:00 Blood - Peripheral Venous Blood Culture - Preliminary NO GROWTH OBTAINED AFTER 96 HOURS, INCUBATION TO CONTINUE FOR 1 DAYS. Imaging: Vascular study 05/14/2017 shows thrombosis involving the right mid and distal grater saphenous vein consistent with superficial venous thromboses, no evidence of DVT on right or left lower ext. Assessment: 77 year old female with pmhx of HTN, chronic venous stasis lower extremity ulcers, polymyalgia rheumatica, and hypothyroidism recent admission on 05/10 diagnosed with microscopic polyangitis, s/p 3 doses rituxan, admitted with isolate hemoptysis. Plan: 1. Microscopic polyangitis vasculitis - Shiley placed 05/14 - Plasmapheresis 1 of 7 (q every other day) - Hold rituxan until completion of plasmaphersis - Prednisone 60mg daily - Valtrex BID - Started mepron pcp ppx 2. R buttock abscess - CT pelvis rule out abscess - Alerted vascular to test and possible I/D - Vanco 1250 x1 - Possible I&D per surgery 3. Left posterior thigh wound - Positive MRSA - Continue zosyn, vanco - Vanco level in AM 4. UTI, klebsiella - Zosyn started today - Stop ceftriaxone 5. Acute on chronic anemia - Hgb stable - 1uprbc 05/14 6. Thrombocytopenia - Due to chronic disease, and infection - Plt improved, monitor daily 7. CKD - Cr improved - Monitor vanco level 8. Hypothyroid - Synthroid daily 9. Hemoptysis - Resolved 10. HTN - Hydralazine 11. Prophylaxis DVT: Heparin TID Protonix Visit type - Emergency Visit Emergency Visit: Yes ED Registration Date: 05/12/17 Care time: The patient presented to the Emergency Department on the above date and was hospitalized for further evaluation of their emergent condition. - New Patient This patient is new to me today: Yes Date on this admission: 05/15/17 - Critical Care Critical Care patient: No
[2017-05-16] MEDS: PIPERACILLIN/TAZOB 3.375 GM 50 ML IVPB SCH ×3 (01:24→18:02)
[2017-05-16] MEDS: INSULIN SLIDING SCALE (NOVOLOG) 1 VIAL SQ SCH ×4 (06:31→21:56)
[2017-05-16] MEDS: INSULIN DETEMIR 100 UNITS/ML MDV SQ SCH (06:33)
[2017-05-16] MEDS: HEPARIN NA (PORCINE) 5,000 UNITS/ML 1ML VIAL SQ SCH ×3 (06:33→21:53)
[2017-05-16] MEDS: LEVOTHYROXINE NA 100 MCG TABLET (FP) PO SCH (06:33)
[2017-05-16] MEDS ORDERED: INSULIN (NOVOLOG) ASPART 100 UNITS/ML 10ML VIAL ONE ×3 (06:52→18:10)
[2017-05-16] MEDS ORDERED: INSULIN SLIDING SCALE (NOVOLOG) 1 VIAL SQ SCH (07:00)
[2017-05-16 07:53] LABS: BASOPHIL 0.3 % (0-2.0); EOSINOPHIL 0.6 % (0-4.5); MCH 30.1 pg (25.7-33.7); MCHC 34.3 g/dl (32.0-36.0); MEAN CELL VOLUME 87.8 fl (80-96); NEUTROPHILS 91.7 % (42.8-82.8); PLATELET COUNT 136 K/MM3 (134-434); RDW 23.2 % (11.6-15.6); WHITE BLOOD COUNT 9.7 K/mm3 (4.0-10.0)
[2017-05-16 08:38] LABS: ALBUMIN 3.1 g/dl (3.4-5.0); ANION GAP 12 (8-16); CALCIUM 7.6 mg/dL (8.5-10.1); CO2 23 mmol/L (21-32); GLUCOSE,RANDOM 77 mg/dL (74-106)
[2017-05-16 08:41] LABS: ALK PHOS 60 U/L (45-117); BILIRUBIN,TOTAL 0.7 mg/dL (0.2-1.0); CREATININE 2.2 mg/dL (0.55-1.02); SGOT/AST 10 U/L (15-37); SGPT/ALT 17 U/L (12-78); TOT PROT 5.4 g/dl (6.4-8.2)
[2017-05-16] MEDS: ATOVAQUONE 750 MG/5 ML (UNIT-DOSE PACKAGING) PO SCH (09:00)
[2017-05-16] MEDS ORDERED: PT OWN MED DRAWER 7, Y5N ONE ×2 (10:39→21:50)
[2017-05-16] MEDS: CALCIUM 500MG/VIT-D 200 UNITS COMBO TABLET (FP) PO SCH (10:42)
[2017-05-16] MEDS: valACYclovir HCL 500 MG TABLET (FP) PO SCH ×2 (10:42→21:53)
[2017-05-16] MEDS: hydrALAZINE HCL 25 MG TABLET (FP) PO SCH ×2 (10:42→21:53)
[2017-05-16] MEDS: PANTOPRAZOLE 40 MG TABLET (FP) PO SCH (10:42)
[2017-05-16] MEDS: DOCUSATE SODIUM 100 MG CAPSULE (FP) PO SCH ×2 (10:42→21:53)
[2017-05-16] MEDS: predniSONE 20 MG TABLET (UD) PO SCH (10:42)
[2017-05-16] MEDS: CLOTRIMAZOLE/BETAMET DIPROP 15 GM TUBE TP SCH ×2 (11:19→21:54)
[2017-05-16] MEDS: COLLAGENASE CLOSTRIDIUM HIST. 30 GRAMS TUBE TP SCH (11:19)
--- NOTE | 2017-05-16 11:43 | PN ---
Progress Note (short form) - Note Progress Note: Microscopic polyangiitis. Patient received 3 doses of Rituximab and at the present time on plasmapheresis. we weill give the 4th dose of Rituximab after plasmapheresis is completed. Aware of events, skin lesion in the right buttock , grew MRSA, tenderness in buttock - rule out nancy-rectal abscess. No fever. P/E. Lungs clear, no active joints, Induration in left buttock. Labs. Platelets increased to 136, creatinine 2.2, no change in urinary sediment. Plan Work-up as per ID. Continue plasmapheresis and same dose of Prednisone. Problem List - Problems (1) Microscopic polyangiitis Code(s): M31.7 - MICROSCOPIC POLYANGIITIS
--- NOTE | 2017-05-16 12:53 | PN ---
Physical Exam: SUBJECTIVE: Patient seen and examined. She is up in chair and eating lunch, tolerated morning plasmapharesis, Afebrile, states her buttock feels better. OBJECTIVE: Vital Signs Period Temp Pulse Resp BP Sys/Horn Pulse Ox Last 24 Hr 97.8 F-98.4 F 62-79 17-21 141-154/79-84 96 PE Neuro: alert, awake, cn 2-12intact Pulm: CTAB CV: S1 s2 rrr no mrg Abd: s nt nd + bs : R buttock medial indurated- less tender, L posterior thigh lesion w/ slough Ext: lower ext wounds b/l, LLE edema + 2 Laboratory Results - last 24 hr 05/16/17 05/16/17 05/16/17 06:00 06:20 06:20 WBC 9.7 RBC 3.06 L Hgb 9.2 L Hct 26.9 L MCV 87.8 MCH 30.1 MCHC 34.3 RDW 23.2 H Plt Count 136 D MPV 9.0 Neutrophils % 91.7 H Lymphocytes % 5.6 L D Monocytes % 1.8 L Eosinophils % 0.6 Basophils % 0.3 Sodium 143 Potassium 4.1 Chloride 108 H Carbon Dioxide 23 Anion Gap 12 BUN 48 H Creatinine 2.2 H Creat Clearance w eGFR 21.70 POC Glucometer Random Glucose 77 Calcium 7.6 L Total Bilirubin 0.7 D AST 10 L D ALT 17 Alkaline Phosphatase 60 D Total Protein 5.4 L Albumin 3.1 L Random Vancomycin 15.353 Hep-Induced Plt Ab Rapid Blood Type Antibody Screen Active Medications Generic Name Dose Route Start Last Admin Trade Name Freq PRN Reason Stop Dose Admin Albumin Human 87.5 gm 05/14/17 10:00 05/14/17 14:00 Plasbumin-5 - IVPB 05/18/17 10:01 Not Given Q2D MILES Atovaquone 1,500 mg 05/16/17 08:00 05/16/17 09:00 Mepron - PO 1,500 mg DAILY@0800 [facility] Administration Calcium Carbonate/Cholecalciferol 2 tab 05/14/17 20:00 05/16/17 10:42 Os-Russ 500+D - PO 2 tab DAILY [facility] Administration Calcium Gluconate 1,000 mg 05/14/17 16:00 Calcium Gluconate 10% - IVPB ONCE PRN Clotrimazole 1 applic 05/11/17 10:00 05/16/17 11:19 Lotrisone Cream (Small Tube) TP 1 applic BID [facility] Administration Collagenase 1 applic 05/12/17 17:00 05/16/17 11:19 Santyl - TP 1 applic DAILY [facility] Administration Diphenhydramine HCl 25 mg 05/14/17 15:40 05/14/17 15:50 Benadryl Injection - IVPB 25 mg ONCE PRN Administration Docusate Sodium 100 mg 05/11/17 22:00 05/16/17 10:42 Colace - PO 100 mg BID MIL[facility] Administration Heparin Sodium (Porcine) 5,000 unit 05/14/17 22:00 05/16/17 06:33 Heparin - SQ 5,000 unit TID MIL[facility] Administration Hydralazine HCl 25 mg 05/10/17 22:30 05/16/17 10:42 Apresoline - PO 25 mg BID MILES Administration Piperacillin/Tazobactam/Dextrose 50 mls @ 100 mls/hr 05/15/17 14:30 05/16/17 10 :24 Zosyn 3.375gm Ivpb (Premix) IVPB 100 mls/hr Q8H-IV [facility] Administration Insulin Aspart 1 vial 05/11/17 07:00 05/16/17 11:55 Novolog Vial Sliding Scale - SQ Not Given [facility] Protocol Insulin Detemir 8 units 05/15/17 07:00 05/16/17 06:33 Levemir Vial SQ 8 units DAILY@0700 [facility] Administration Levothyroxine Sodium 100 mcg 05/11/17 07:00 05/16/17 06:33 Synthroid - PO 100 mcg DAILY@0700 [facility] Administration Pantoprazole Sodium 40 mg 05/11/17 13:00 05/16/17 10:42 Protonix - PO 40 mg DAILY [facility] Administration Prednisone 60 mg 05/13/17 10:00 05/16/17 10:42 Deltasone - PO 60 mg DAILY [facility] Administration Valacyclovir HCl 500 mg 05/11/17 10:00 05/16/17 10:42 Valtrex - PO 500 mg BID MIL[facility] Administration Microbiology 05/11/17 02:00 Blood - Peripheral Venous Blood Culture - Final NO GROWTH AFTER 5 DAYS INCUBATION 05/11/17 02:00 Blood - Peripheral Venous Blood Culture - Final NO GROWTH AFTER 5 DAYS INCUBATION 05/12/17 16:40 Wound Gram Stain - Final 05/12/17 16:40 Wound Wound Culture - Final Mr S Aureus Diphtheroid/Corynebacterium 05/12/17 20:45 Urine - Urine Clean Catch Urine Culture - Final Escherichia Coli Assessment: 77 year old female with pmhx of HTN, chronic venous stasis lower extremity ulcers, polymyalgia rheumatica, and hypothyroidism recent admission on 05/10 diagnosed with microscopic polyangitis, s/p 3 doses rituxan, admitted with isolate hemoptysis. Plan: 1. Microscopic polyangitis vasculitis - Completed Plasmapheresis 2 of 7 (q every other day) today - Shiley placed 05/14 - Hold rituxan until completion of plasmaphersis - Prednisone 60mg daily - Valtrex BID - Started mepron pcp ppx 2. R buttock abscess - CT pelvis shows ?drainable abscess - D/w Dr. Silvestre no fluid to drain, will continue with abx and monitor, if worsens will obtain MRI 3. Left posterior thigh wound + MRSA - Continue zosyn - x1 dose vanco, level stable - ID seeing 4. UTI,Klebsiella - Zosyn (day 2) started 05/15 5. Acute on chronic anemia - Hgb stable - 1uprbc 05/14 6. Thrombocytopenia - Due to chronic disease, and infection - Plt improved, monitor daily 7. CKD - Cr mildly elevated 8. Hypothyroid - Synthroid daily 9. Hemoptysis - Resolved 10. HTN - Controlled - Hydralazine 25mg BID 11. Prophylaxis DVT: Heparin TID Protonix 12. Left posterior thigh wound - Daily dressing change with packing Visit type - Emergency Visit Emergency Visit: Yes ED Registration Date: 05/12/17 Care time: The patient presented to the Emergency Department on the above date and was hospitalized for further evaluation of their emergent condition. - New Patient This patient is new to me today: No - Critical Care Critical Care patient: No
--- NOTE | 2017-05-16 13:09 | PN ---
Progress Note, Physician History of Present Illness: PULMONARY ALERT,NO DISTRESS -SOB,-HEMOPTYSIS. PT S/P PLASMAPHERESIS TOLERATED WELL - Current Medication List Current Medications: Active Medications Albumin Human (Plasbumin-5 -) 87.5 gm IVPB Q2D [facility] Stop: 05/18/17 10:01 Last Admin: 05/14/17 14:00 Dose: Not Given Atovaquone (Mepron -) 1,500 mg PO DAILY@0800 [facility] Last Admin: 05/16/17 09:00 Dose: 1,500 mg Calcium Carbonate/Cholecalciferol (Os-Russ 500+D -) 2 tab PO DAILY [facility] Last Admin: 05/16/17 10:42 Dose: 2 tab Calcium Gluconate (Calcium Gluconate 10% -) 1,000 mg IVPB ONCE PRN Clotrimazole (Lotrisone Cream (Small Tube)) 1 applic TP BID [facility] Last Admin: 05/16/17 11:19 Dose: 1 applic Collagenase (Santyl -) 1 applic TP DAILY [facility] Last Admin: 05/16/17 11:19 Dose: 1 applic Diphenhydramine HCl (Benadryl Injection -) 25 mg IVPB ONCE PRN Last Admin: 05/14/17 15:50 Dose: 25 mg Docusate Sodium (Colace -) 100 mg PO BID [facility] Last Admin: 05/16/17 10:42 Dose: 100 mg Heparin Sodium (Porcine) (Heparin -) 5,000 unit SQ TID [facility] Last Admin: 05/16/17 06:33 Dose: 5,000 unit Hydralazine HCl (Apresoline -) 25 mg PO BID [facility] Last Admin: 05/16/17 10:42 Dose: 25 mg Piperacillin/Tazobactam/Dextrose (Zosyn 3.375gm Ivpb (Premix)) 50 mls @ 100 mls /hr IVPB Q8H-IV [facility] Last Admin: 05/16/17 10:24 Dose: 100 mls/hr Insulin Aspart (Novolog Vial Sliding Scale -) 1 vial SQ ACHS [facility] PRN Reason: Protocol Last Admin: 05/16/17 11:55 Dose: Not Given Insulin Detemir (Levemir Vial) 8 units SQ DAILY@0700 [facility] Last Admin: 05/16/17 06:33 Dose: 8 units Levothyroxine Sodium (Synthroid -) 100 mcg PO DAILY@0700 [facility] Last Admin: 05/16/17 06:33 Dose: 100 mcg Pantoprazole Sodium (Protonix -) 40 mg PO DAILY [facility] Last Admin: 05/16/17 10:42 Dose: 40 mg Prednisone (Deltasone -) 60 mg PO DAILY [facility] Last Admin: 05/16/17 10:42 Dose: 60 mg Valacyclovir HCl (Valtrex -) 500 mg PO BID [facility] Last Admin: 05/16/17 10:42 Dose: 500 mg - Objective Vital Signs: Vital Signs Temperature 97.9 F 05/16/17 09:11 Pulse Rate 78 05/16/17 09:11 Respiratory Rate 20 05/16/17 09:11 Blood Pressure 143/83 05/16/17 09:11 O2 Sat by Pulse Oximetry (%) 96 05/15/17 21:00 Constitutional: Yes: Well Nourished, Calm Eyes: Yes: WNL HENT: Yes: WNL Neck: Yes: Supple Cardiovascular: Yes: Regular Rate and Rhythm, S1, S2 Respiratory: Yes: CTA Bilaterally Extremities: Yes: WNL Peripheral Pulses WNL: No Labs: CBC, BMP 05/16/17 06:20 05/16/17 06:20 INR, PTT INR 1.12 (0.82-1.09) 05/14/17 20:45 Fibrinogen 184.0 mg/dL (238-498) L D 05/14/17 20:45 Problem List - Problems (1) Microscopic polyangiitis Code(s): M31.7 - MICROSCOPIC POLYANGIITIS (2) Bilateral pulmonary infiltrates on chest x-ray Code(s): R91.8 - OTHER NONSPECIFIC ABNORMAL FINDING OF LUNG FIELD (3) Hypertension Code(s): I10 - ESSENTIAL (PRIMARY) HYPERTENSION (4) Hypothyroid Code(s): E03.9 - HYPOTHYROIDISM, UNSPECIFIED (5) Vasculitis Code(s): I77.6 - ARTERITIS, UNSPECIFIED (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
--- NOTE | 2017-05-16 14:04 | PN ---
Progress Note, Physician History of Present Illness: Pt seen and examined at bedside. She is awake and alert. She has not had any hemoptysis. - Current Medication List Current Medications: Active Medications Albumin Human (Plasbumin-5 -) 87.5 gm IVPB Q2D [facility] Stop: 05/18/17 10:01 Last Admin: 05/14/17 14:00 Dose: Not Given Atovaquone (Mepron -) 1,500 mg PO DAILY@0800 [facility] Last Admin: 05/16/17 09:00 Dose: 1,500 mg Calcium Carbonate/Cholecalciferol (Os-Russ 500+D -) 2 tab PO DAILY [facility] Last Admin: 05/16/17 10:42 Dose: 2 tab Calcium Gluconate (Calcium Gluconate 10% -) 1,000 mg IVPB ONCE PRN Clotrimazole (Lotrisone Cream (Small Tube)) 1 applic TP BID [facility] Last Admin: 05/16/17 11:19 Dose: 1 applic Collagenase (Santyl -) 1 applic TP DAILY [facility] Last Admin: 05/16/17 11:19 Dose: 1 applic Diphenhydramine HCl (Benadryl Injection -) 25 mg IVPB ONCE PRN Last Admin: 05/14/17 15:50 Dose: 25 mg Docusate Sodium (Colace -) 100 mg PO BID [facility] Last Admin: 05/16/17 10:42 Dose: 100 mg Heparin Sodium (Porcine) (Heparin -) 5,000 unit SQ TID [facility] Last Admin: 05/16/17 06:33 Dose: 5,000 unit Hydralazine HCl (Apresoline -) 25 mg PO BID [facility] Last Admin: 05/16/17 10:42 Dose: 25 mg Piperacillin/Tazobactam/Dextrose (Zosyn 3.375gm Ivpb (Premix)) 50 mls @ 100 mls /hr IVPB Q8H-IV [facility] Last Admin: 05/16/17 10:24 Dose: 100 mls/hr Insulin Aspart (Novolog Vial Sliding Scale -) 1 vial SQ ACHS [facility] PRN Reason: Protocol Last Admin: 05/16/17 11:55 Dose: Not Given Insulin Detemir (Levemir Vial) 8 units SQ DAILY@0700 [facility] Last Admin: 05/16/17 06:33 Dose: 8 units Levothyroxine Sodium (Synthroid -) 100 mcg PO DAILY@0700 [facility] Last Admin: 05/16/17 06:33 Dose: 100 mcg Pantoprazole Sodium (Protonix -) 40 mg PO DAILY [facility] Last Admin: 05/16/17 10:42 Dose: 40 mg Prednisone (Deltasone -) 60 mg PO DAILY [facility] Last Admin: 05/16/17 10:42 Dose: 60 mg Valacyclovir HCl (Valtrex -) 500 mg PO BID [facility] Last Admin: 05/16/17 10:42 Dose: 500 mg - Objective Vital Signs: Vital Signs Temperature 97.9 F 05/16/17 09:11 Pulse Rate 78 05/16/17 09:11 Respiratory Rate 20 05/16/17 09:11 Blood Pressure 143/83 05/16/17 09:11 O2 Sat by Pulse Oximetry (%) 96 05/16/17 09:00 Constitutional: Yes: Calm Eyes: Yes: Conjunctiva Clear HENT: Yes: Atraumatic Neck: Yes: Supple Cardiovascular: Yes: S1, S2 Respiratory: Yes: CTA Bilaterally Gastrointestinal: Yes: Soft Musculoskeletal: Yes: WNL Edema: Yes Wound/Incision: Yes: Dressing Dry and Intact Labs: CBC, BMP 05/16/17 06:20 05/16/17 06:20 INR, PTT INR 1.12 (0.82-1.09) 05/14/17 20:45 Fibrinogen 184.0 mg/dL (238-498) L D 05/14/17 20:45 Problem List - Problems (1) Hemoptysis Code(s): R04.2 - HEMOPTYSIS (2) Acute kidney injury Code(s): N17.9 - ACUTE KIDNEY FAILURE, UNSPECIFIED Assessment/Plan Current Medications Generic Name Dose Route Start Last Admin Trade Name Freq PRN Reason Stop Dose Admin Albumin Human 87.5 gm 05/14/17 10:00 05/14/17 14:00 Plasbumin-5 - IVPB 05/18/17 10:01 Not Given Q2D [facility] Atovaquone 1,500 mg 05/16/17 08:00 05/16/17 09:00 Mepron - PO 1,500 mg DAILY@0800 [facility] Administration Calcium Carbonate/Cholecalciferol 2 tab 05/14/17 20:00 05/16/17 10:42 Os-Russ 500+D - PO 2 tab DAILY [facility] Administration Calcium Gluconate 1,000 mg 05/14/17 16:00 Calcium Gluconate 10% - IVPB ONCE PRN Clotrimazole 1 applic 05/11/17 10:00 05/16/17 11:19 Lotrisone Cream (Small Tube) TP 1 applic BID [facility] Administration Collagenase 1 applic 05/12/17 17:00 05/16/17 11:19 Santyl - TP 1 applic DAILY [facility] Administration Diphenhydramine HCl 25 mg 05/14/17 15:40 05/14/17 15:50 Benadryl Injection - IVPB 25 mg ONCE PRN Administration Docusate Sodium 100 mg 05/11/17 22:00 05/16/17 10:42 Colace - PO 100 mg BID [facility] Administration Heparin Sodium (Porcine) 5,000 unit 05/14/17 22:00 05/16/17 06:33 Heparin - SQ 5,000 unit TID [facility] Administration Hydralazine HCl 25 mg 05/10/17 22:30 05/16/17 10:42 Apresoline - PO 25 mg BID [facility] Administration Piperacillin/Tazobactam/Dextrose 50 mls @ 100 mls/hr 05/15/17 14:30 05/16/17 10 :24 Zosyn 3.375gm Ivpb (Premix) IVPB 100 mls/hr Q8H-IV [facility] Administration Insulin Aspart 1 vial 05/11/17 07:00 05/16/17 11:55 Novolog Vial Sliding Scale - SQ Not Given [facility] Protocol Insulin Detemir 8 units 05/15/17 07:00 05/16/17 06:33 Levemir Vial SQ 8 units DAILY@0700 [facility] Administration Levothyroxine Sodium 100 mcg 05/11/17 07:00 05/16/17 06:33 Synthroid - PO 100 mcg DAILY@0700 [facility] Administration Pantoprazole Sodium 40 mg 05/11/17 13:00 05/16/17 10:42 Protonix - PO 40 mg DAILY [facility] Administration Prednisone 60 mg 05/13/17 10:00 05/16/17 10:42 Deltasone - PO 60 mg DAILY [facility] Administration Valacyclovir HCl 500 mg 05/11/17 10:00 05/16/17 10:42 Valtrex - PO 500 mg BID [facility] Administration Impression 1. MYRTLE 2. lower extremity ulcer 3. hypothyroid 4. HTN 5. polymyalgia 6. anemia 7. vasculitis microscopic polyangitis 8. thrombophlebitis 9. hemoptysis Plan - cont to monitor renal function - pt had 3 doses of rituximab, 4th dose after course of plasma exchange - rheum input appreciated - monitor ua - will follow closely
--- NOTE | 2017-05-16 15:59 | PN ---
Progress Note (short form) - Note Progress Note: reports less buttock discomfort s/p plasmapharesis today no hemoptysis Vital Signs Period Temp Pulse Resp BP Sys/Horn Pulse Ox Last 24 Hr 97.8 F-98.4 F 62-79 20-21 141-154/79-84 96-96 cor-rrr lungs clear abd soft,nt left buttock is softer, less tender to palpation leg ulcers are improved- she is able to walk CBC, BMP 05/16/17 06:20 05/16/17 06:20 Microbiology 05/15/17 12:35 Blood - Peripheral Venous Blood Culture - Preliminary NO GROWTH OBTAINED AFTER 24 HOURS, INCUBATION TO CONTINUE FOR 4 DAYS. 05/15/17 12:25 Blood - Peripheral Venous Blood Culture - Preliminary NO GROWTH OBTAINED AFTER 24 HOURS, INCUBATION TO CONTINUE FOR 4 DAYS. 05/11/17 02:00 Blood - Peripheral Venous Blood Culture - Final NO GROWTH AFTER 5 DAYS INCUBATION 05/11/17 02:00 Blood - Peripheral Venous Blood Culture - Final NO GROWTH AFTER 5 DAYS INCUBATION 05/12/17 16:40 Wound Gram Stain - Final 05/12/17 16:40 Wound Wound Culture - Final S Aureus Diphtheroid/Corynebacterium 05/12/17 20:45 Urine - Urine Clean Catch Urine Culture - Final Escherichia Coli ct scan- phlegmon left buttock a/p immunosuppressed patient on plasmapharesis and steroids-microscopic polyangiitis ct scan with phlegmon vancomycin based on levels, continue zosyn follow vanco levels due to changing renal function continue valtrex for hsv suppression MRSA contact isolation sulfa allergy - will add mepron for PCP prophylaxis Problem List - Problems (1) Perirectal abscess Code(s): K61.1 - RECTAL ABSCESS (2) Microscopic polyangiitis Code(s): M31.7 - MICROSCOPIC POLYANGIITIS (3) MRSA (methicillin resistant staph aureus) culture positive Code(s): Z22.322 - CARRIER OR SUSPECTED CARRIER OF METHICILLIN RESIS STAPH
[2017-05-16 17:00] LABS: BASOPHIL 0.1 % (0-2.0); EOSINOPHIL 0.5 % (0-4.5); MCH 30.7 pg (25.7-33.7); MCHC 34.6 g/dl (32.0-36.0); MEAN CELL VOLUME 88.8 fl (80-96); MEAN PLT VOLUME 9.4 fl (7.5-11.1); NEUTROPHILS 96.7 % (42.8-82.8); PLATELET COUNT 126 K/MM3 (134-434); RDW 23.2 % (11.6-15.6); WHITE BLOOD COUNT 8.4 K/mm3 (4.0-10.0)
[2017-05-16 17:16] LABS: INR 1.09 (0.82-1.09); PROTHROMBIN TIME (PATIENT) 12.3 SEC (9.98-11.88)
[2017-05-16 17:19] LABS: ACTIVATED PTT 59.6 SECONDS (26.9-34.4)
[2017-05-16 17:41] LABS: ALBUMIN 3.5 g/dl (3.4-5.0); ALK PHOS 49 U/L (45-117); ANION GAP 12 (8-16); BILIRUBIN,TOTAL 0.7 mg/dL (0.2-1.0); CALCIUM 7.2 mg/dL (8.5-10.1); CO2 25 mmol/L (21-32); CREATININE 2.3 mg/dL (0.55-1.02); GLUCOSE,RANDOM 209 mg/dL (74-106); MAGNESIUM 1.6 mg/dL (1.8-2.4); SGOT/AST 9 U/L (15-37); SGPT/ALT 20 U/L (12-78); TOT PROT 5.4 g/dl (6.4-8.2)
[2017-05-16] MEDS ORDERED: MAGNESIUM SULF 50% (8.12 MEQ/2 ML-1 GM VIAL) IVPB ONE (18:27)
--- NOTE | 2017-05-16 22:32 | PN ---
Progress Note (short form) - Note Progress Note: Patient seen and examined Feels well Denies any complaints s/p plasmapheresi#2 /7 today Last Vital Signs Temp Pulse Resp BP Pulse Ox 97.8 F 78 20 143/83 96 05/16/17 14:00 05/16/17 09:11 05/16/17 09:11 05/16/17 09:11 05/16/17 09:00 Cor: RSR, No murmurs, No gallops Lungs: Clear to P&A Abd: Soft, Normal bowel sounds, No organomegaly Ext:No significant edema Abnormal Lab Results 05/16/17 05/16/17 05/16/17 06:20 06:20 15:00 RBC 3.06 L 2.85 L Hgb 9.2 L 8.8 L Hct 26.9 L 25.3 L RDW 23.2 H 23.2 H Plt Count 126 L Neutrophils % 91.7 H 96.7 H Lymphocytes % 5.6 L D 1.8 L D Monocytes % 1.8 L 0.9 L PT with INR PTT (Actin FS) Fibrinogen Chloride 108 H BUN 48 H Creatinine 2.2 H Random Glucose Calcium 7.6 L Magnesium AST 10 L D Total Protein 5.4 L Albumin 3.1 L 05/16/17 05/16/17 15:00 16:00 RBC Hgb Hct RDW Plt Count Neutrophils % Lymphocytes % Monocytes % PT with INR 12.30 H PTT (Actin FS) 59.6 H D Fibrinogen 201.0 L Chloride BUN 47 H Creatinine 2.3 H Random Glucose 209 H D Calcium 7.2 L Magnesium 1.6 L AST 9 L Total Protein 5.4 L Albumin Active Medications Generic Name Dose Route Start Last Admin Trade Name Julioq PRN Reason Stop Dose Admin Albumin Human 87.5 gm 05/14/17 10:00 05/14/17 14:00 Plasbumin-5 - IVPB 05/18/17 10:01 Not Given Q2D [facility] Atovaquone 1,500 mg 05/16/17 08:00 05/16/17 09:00 Mepron - PO 1,500 mg DAILY@0800 [facility] Administration Calcium Carbonate/Cholecalciferol 2 tab 05/14/17 20:00 05/16/17 10:42 Os-Russ 500+D - PO 2 tab DAILY [facility] Administration Calcium Gluconate 1,000 mg 05/14/17 16:00 Calcium Gluconate 10% - IVPB ONCE PRN Clotrimazole 1 applic 05/11/17 10:00 05/16/17 21:54 Lotrisone Cream (Small Tube) TP 1 applic BID [facility] Administration Collagenase 1 applic 05/12/17 17:00 05/16/17 11:19 Santyl - TP 1 applic DAILY [facility] Administration Diphenhydramine HCl 25 mg 05/14/17 15:40 05/14/17 15:50 Benadryl Injection - IVPB 25 mg ONCE PRN Administration Docusate Sodium 100 mg 05/11/17 22:00 05/16/17 21:53 Colace - PO 100 mg BID [facility] Administration Heparin Sodium (Porcine) 5,000 unit 05/14/17 22:00 05/16/17 21:53 Heparin - SQ 5,000 unit TID [facility] Administration Hydralazine HCl 25 mg 05/10/17 22:30 05/16/17 21:53 Apresoline - PO 25 mg BID [facility] Administration Piperacillin/Tazobactam/Dextrose 50 mls @ 100 mls/hr 05/15/17 14:30 05/16/17 18 :02 Zosyn 3.375gm Ivpb (Premix) IVPB 100 mls/hr Q8H-IV [facility] Administration Insulin Aspart 1 vial 05/11/17 07:00 05/16/17 21:56 Novolog Vial Sliding Scale - SQ 6 units ACHS [facility] Administration Protocol Insulin Detemir 8 units 05/15/17 07:00 05/16/17 06:33 Levemir Vial SQ 8 units DAILY@0700 [facility] Administration Levothyroxine Sodium 100 mcg 05/11/17 07:00 05/16/17 06:33 Synthroid - PO 100 mcg DAILY@0700 [facility] Administration Pantoprazole Sodium 40 mg 05/11/17 13:00 05/16/17 10:42 Protonix - PO 40 mg DAILY [facility] Administration Prednisone 60 mg 05/13/17 10:00 05/16/17 10:42 Deltasone - PO 60 mg DAILY [facility] Administration Valacyclovir HCl 500 mg 05/11/17 10:00 05/16/17 21:53 Valtrex - PO 500 mg BID [facility] Administration A/P 77 y/o patient with microscopic polyangiitis, with hemoptysis, renal impairment , s/p renal biopsy---04/22/17 s/p pulse steroids, rituxan---3 doses --last 05/08 Now comes in with recurrent hemoptysis, last over weekend, and active urinary sediment also with new onset thrombocytopenia CT ca/p--b/l pulmonary ground glass opacities, gall stones #08/28 plasmaexchange with plasma and albumin. Monitor PT/PTT/fibrinogen/CBC/Mg thrombocytopenia -- ?? ongoing pulmonary process? infection ? vasculitis--on rocephin ? meds improving
[2017-05-17] MEDS: PIPERACILLIN/TAZOB 3.375 GM 50 ML IVPB SCH ×3 (01:44→17:24)
[2017-05-17] MEDS: HEPARIN NA (PORCINE) 5,000 UNITS/ML 1ML VIAL SQ SCH ×3 (06:23→21:47)
[2017-05-17] MEDS: LEVOTHYROXINE NA 100 MCG TABLET (FP) PO SCH (06:29)
[2017-05-17] MEDS: INSULIN DETEMIR 100 UNITS/ML MDV SQ SCH (06:29)
[2017-05-17] MEDS: INSULIN SLIDING SCALE (NOVOLOG) 1 VIAL SQ SCH ×4 (06:29→21:48)
[2017-05-17 07:42] LABS: INR 1.01 (0.82-1.09); PROTHROMBIN TIME (PATIENT) 11.4 SEC (9.98-11.88)
[2017-05-17 07:43] LABS: ACTIVATED PTT 55.8 SECONDS (26.9-34.4)
[2017-05-17 07:55] LABS: MCH 30.7 pg (25.7-33.7); MCHC 34.8 g/dl (32.0-36.0); MEAN PLT VOLUME 9.1 fl (7.5-11.1); PLATELET COUNT 149 K/MM3 (134-434); RDW 23.4 % (11.6-15.6); WHITE BLOOD COUNT 8.3 K/mm3 (4.0-10.0)
[2017-05-17 08:11] LABS: ALBUMIN 3.1 g/dl (3.4-5.0); ANION GAP 9 (8-16); BILIRUBIN,TOTAL 0.7 mg/dL (0.2-1.0); CALCIUM 7.1 mg/dL (8.5-10.1); CO2 27 mmol/L (21-32); CREATININE 2.3 mg/dL (0.55-1.02); GLUCOSE,RANDOM 81 mg/dL (74-106); SGOT/AST 9 U/L (15-37); SGPT/ALT 18 U/L (12-78); TOT PROT 5.2 g/dl (6.4-8.2)
[2017-05-17 08:12] LABS: ALK PHOS 50 U/L (45-117)
[2017-05-17] MEDS ORDERED: PT OWN MED DRAWER 7, Y5N ONE ×2 (08:37→21:26)
--- NOTE | 2017-05-17 08:43 | PN ---
Progress Note (short form) - Note Progress Note: Has been oozing from groin catheter site. No pain in perianal area Afeb Old blood around Shiley CT did not show discrete abscess. Pressure dressing placed. Continue abx.
[2017-05-17] MEDS: ATOVAQUONE 750 MG/5 ML (UNIT-DOSE PACKAGING) PO SCH (09:22)
[2017-05-17] MEDS: predniSONE 20 MG TABLET (UD) PO SCH (09:22)
[2017-05-17] MEDS: CALCIUM 500MG/VIT-D 200 UNITS COMBO TABLET (FP) PO SCH (09:22)
[2017-05-17] MEDS: PANTOPRAZOLE 40 MG TABLET (FP) PO SCH (09:23)
[2017-05-17] MEDS: valACYclovir HCL 500 MG TABLET (FP) PO SCH ×2 (09:23→21:47)
[2017-05-17] MEDS: hydrALAZINE HCL 25 MG TABLET (FP) PO SCH ×2 (09:23→21:47)
[2017-05-17] MEDS: DOCUSATE SODIUM 100 MG CAPSULE (FP) PO SCH ×3 (09:23→21:49)
[2017-05-17] MEDS: COLLAGENASE CLOSTRIDIUM HIST. 30 GRAMS TUBE TP SCH (09:29)
[2017-05-17] MEDS: CLOTRIMAZOLE/BETAMET DIPROP 15 GM TUBE TP SCH ×2 (09:29→21:47)
--- NOTE | 2017-05-17 11:20 | PN ---
Progress Note (short form) - Note Progress Note: Dressing changed this am, Nursing staff said that her dressing was saturated overnight several times. The las ttime the patient noted it was 5 am this morning. No complaints of leg pain. Vital Signs Period Temp Pulse Resp BP Sys/Horn Pulse Ox Last 24 Hr 97.4 F-97.8 F 58-68 20-21 145-160/58-76 97 Right groin: no evidence of masses/active bleeding. Surgicel placed over biopatech, with pressure dressing. Her upper thigh/abd remain soft. Right foot with palpable DP, non tender CBC, BMP 05/17/17 06:00 05/17/17 06:00 A/P: 77 yo female with with right groin shiley placed for plasmaphoresis No evidence of active bleeding, had a plasmaphoresis session yesterday. Her platelet count has improved with her current treatment Monitor her groin for additional bleeding
[2017-05-17] MEDS ORDERED: VANCOMYCIN 1 GRAM (PRE-DOCKED) 1,000 MG/250 ML BAG IVPB ONE (11:43)
--- NOTE | 2017-05-17 11:43 | PN ---
Progress Note (short form) - Note Progress Note: reports less buttock discomfort no hemoptysis Vital Signs Period Temp Pulse Resp BP Sys/Horn Pulse Ox Last 24 Hr 97.4 F-97.8 F 58-68 20-21 145-160/58-76 97 cor-rrr lungs clear abd soft,nt ext left buttock less indurated right thigh lesions unchanged CBC, BMP 05/17/17 06:00 05/17/17 06:00 Microbiology 05/15/17 12:35 Blood - Peripheral Venous Blood Culture - Preliminary NO GROWTH OBTAINED AFTER 24 HOURS, INCUBATION TO CONTINUE FOR 4 DAYS. 05/15/17 12:25 Blood - Peripheral Venous Blood Culture - Preliminary NO GROWTH OBTAINED AFTER 24 HOURS, INCUBATION TO CONTINUE FOR 4 DAYS. 05/11/17 02:00 Blood - Peripheral Venous Blood Culture - Final NO GROWTH AFTER 5 DAYS INCUBATION 05/11/17 02:00 Blood - Peripheral Venous Blood Culture - Final NO GROWTH AFTER 5 DAYS INCUBATION 05/12/17 16:40 Wound Gram Stain - Final 05/12/17 16:40 Wound Wound Culture - Final Mr S Aureus Diphtheroid/Corynebacterium 05/12/17 20:45 Urine - Urine Clean Catch Urine Culture - Final Escherichia Coli Laboratory Tests 05/17/17 06:[address] scan- phlegmon left buttock a/p immunosuppressed patient on plasmapharesis and steroids-microscopic polyangiitis ct scan with phlegmon vancomycin based on levels, continue zosyn vancomycin today continue valtrex for hsv suppression MRSA contact isolation sulfa allergy - will add mepron for PCP prophylaxis Problem List - Problems (1) Perirectal abscess Code(s): K61.1 - RECTAL ABSCESS (2) Microscopic polyangiitis Code(s): M31.7 - MICROSCOPIC POLYANGIITIS (3) MRSA (methicillin resistant staph aureus) culture positive Code(s): Z22.322 - CARRIER OR SUSPECTED CARRIER OF METHICILLIN RESIS STAPH
[2017-05-17] MEDS ORDERED: VANCOMYCIN 1,000 MG in DEXTROSE 5%-WATER - 250 ML IVPB ONE (12:30)
--- NOTE | 2017-05-17 14:18 | PN ---
Physical Exam: SUBJECTIVE: Patient seen and examined. She feels well today, no SOB, hemoptysis. Events: - R femoral shiley oozing blood, changed dressing this AM OBJECTIVE: Vital Signs Period Temp Pulse Resp BP Sys/Horn Pulse Ox Last 24 Hr 97.4 F-97.8 F 58-68 20-21 145-160/58-76 97 PE Neuro: alert, awake, cn 2-12intact Pulm: CTAB CV: S1 s2 rrr no mrg Abd: s nt nd + bs : R buttock medial abscess, less indurated, no erythema, no tenderness, L posterior thigh lesion w/ slough Ext: Lower ext wounds b/l, LLE edema + 2 Skin: R femoral shiley Laboratory Results - last 24 hr 05/17/17 05/17/17 05/17/17 05:49 06:00 06:00 WBC 8.3 RBC 2.81 L Hgb 8.6 L Hct 24.7 L MCV 88.0 MCH 30.7 MCHC 34.8 RDW 23.4 H Plt Count 149 MPV 9.1 Neutrophils % Lymphocytes % Monocytes % Eosinophils % Basophils % PT with INR INR PTT (Actin FS) Fibrinogen Sodium Potassium Chloride Carbon Dioxide Anion Gap BUN Creatinine Creat Clearance w eGFR POC Glucometer 75 Random Glucose Calcium Magnesium Total Bilirubin AST ALT Alkaline Phosphatase Total Protein Albumin Random Vancomycin 7.724 Blood Type Antibody Screen Crossmatch 05/17/17 05/17/17 05/17/17 06:00 06:00 11:26 WBC RBC Hgb Hct MCV MCH MCHC RDW Plt Count MPV Neutrophils % Lymphocytes % Monocytes % Eosinophils % Basophils % PT with INR 11.40 INR 1.01 PTT (Actin FS) 55.8 H Fibrinogen 249.0 D Sodium 144 Potassium 3.5 Chloride 108 H Carbon Dioxide 27 Anion Gap 9 BUN 43 H Creatinine 2.3 H Creat Clearance w eGFR 20.62 POC Glucometer 297 Random Glucose 81 D Calcium 7.1 L Magnesium 2.0 D Total Bilirubin 0.7 AST 9 L ALT 18 Alkaline Phosphatase 50 Total Protein 5.2 L Albumin 3.1 L Random Vancomycin Blood Type Antibody Screen Crossmatch Active Medications Generic Name Dose Route Start Last Admin Trade Name Freq PRN Reason Stop Dose Admin Albumin Human 87.5 gm 05/14/17 10:00 05/14/17 14:00 Plasbumin-5 - IVPB 05/18/17 10:01 Not Given Q2D MILES Atovaquone 1,500 mg 05/16/17 08:00 05/17/17 09:22 Mepron - PO 1,500 mg DAILY@0800 MIL[facility] Administration Calcium Carbonate/Cholecalciferol 2 tab 05/14/17 20:00 05/17/17 09:22 Os-Russ 500+D - PO 2 tab DAILY MILES Administration Calcium Gluconate 1,000 mg 05/14/17 16:00 Calcium Gluconate 10% - IVPB ONCE PRN Clotrimazole 1 applic 05/11/17 10:00 05/17/17 09:29 Lotrisone Cream (Small Tube) TP 1 applic BID MILES Administration Collagenase 1 applic 05/12/17 17:00 05/17/17 09:29 Santyl - TP 1 applic DAILY [facility] Administration Diphenhydramine HCl 25 mg 05/14/17 15:40 05/14/17 15:50 Benadryl Injection - IVPB 25 mg ONCE PRN Administration Docusate Sodium 100 mg 05/11/17 22:00 05/17/17 09:23 Colace - PO 100 mg BID MILES Administration Heparin Sodium (Porcine) 5,000 unit 05/14/17 22:00 05/17/17 06:23 Heparin - SQ Not Given TID MILES Hydralazine HCl 25 mg 05/10/17 22:30 05/17/17 09:23 Apresoline - PO 25 mg BID MIL[facility] Administration Piperacillin/Tazobactam/Dextrose 50 mls @ 100 mls/hr 05/15/17 14:30 05/17/17 10 :58 Zosyn 3.375gm Ivpb (Premix) IVPB 100 mls/hr Q8H-IV [facility]ES Administration Insulin Aspart 1 vial 05/11/17 07:00 05/17/17 11:39 Novolog Vial Sliding Scale - SQ 4 units ACHS MILES Administration Protocol Insulin Detemir 8 units 05/15/17 07:00 05/17/17 06:29 Levemir Vial SQ 8 units DAILY@0700 [facility] Administration Levothyroxine Sodium 100 mcg 05/11/17 07:00 05/17/17 06:29 Synthroid - PO 100 mcg DAILY@0700 [facility] Administration Pantoprazole Sodium 40 mg 05/11/17 13:00 05/17/17 09:23 Protonix - PO 40 mg DAILY MILES Administration Prednisone 60 mg 05/13/17 10:00 05/17/17 09:22 Deltasone - PO 60 mg DAILY MILES Administration Valacyclovir HCl 500 mg 05/11/17 10:00 05/17/17 09:23 Valtrex - PO 500 mg BID MILES Administration Assessment: 77 year old female with pmhx of HTN, chronic venous stasis lower extremity ulcers, polymyalgia rheumatica, and hypothyroidism recent admission on 05/10 diagnosed with microscopic polyangitis, s/p 3 doses rituxan, admitted with isolate hemoptysis. Plan: 1. Microscopic polyangitis vasculitis - Plasmapheresis 2 of 7 (q every other day) next session tomorrow - Severino placed 05/14 - Hold rituxan until completion of plasmaphersis - Prednisone 60mg daily - Valtrex BID - Started mepron pcp ppx 2. R buttock abscess - No acute intervention at this point, improving with abx - D/w Dr. Silvestre, if worsens MRI 3. Left posterior thigh wound + MRSA - Continue zosyn - Vanco dose today - Follow levels d/t CKD - ID seeing 4. UTI,Klebsiella - Zosyn (day 3) started 05/15 5. Acute on chronic anemia - Hgb stable - 1uprbc 05/14 6. Thrombocytopenia - Due to chronic disease, and infection - Plt improved, monitor daily 7. CKD - Cr mildly elevated 8. Hypothyroid - Synthroid daily 9. Hemoptysis - Resolved 10. HTN - Controlled - Hydralazine 25mg BID 11. Prophylaxis DVT: Heparin TID Protonix 12. Left posterior thigh wound - Daily dressing change with packing Visit type - Emergency Visit Emergency Visit: Yes ED Registration Date: 05/12/17 Care time: The patient presented to the Emergency Department on the above date and was hospitalized for further evaluation of their emergent condition. - New Patient This patient is new to me today: No - Critical Care Critical Care patient: No
--- NOTE | 2017-05-17 14:54 | PN ---
Progress Note, Physician History of Present Illness: Pt seen and examined at bedside. She is awake and alert. SHe denies hemoptysis. - Current Medication List Current Medications: Active Medications Albumin Human (Plasbumin-5 -) 87.5 gm IVPB Q2D [facility] Stop: 05/18/17 10:01 Last Admin: 05/14/17 14:00 Dose: Not Given Atovaquone (Mepron -) 1,500 mg PO DAILY@0800 [facility] Last Admin: 05/17/17 09:22 Dose: 1,500 mg Calcium Carbonate/Cholecalciferol (Os-Russ 500+D -) 2 tab PO DAILY [facility] Last Admin: 05/17/17 09:22 Dose: 2 tab Calcium Gluconate (Calcium Gluconate 10% -) 1,000 mg IVPB ONCE PRN Clotrimazole (Lotrisone Cream (Small Tube)) 1 applic TP BID [facility] Last Admin: 05/17/17 09:29 Dose: 1 applic Collagenase (Santyl -) 1 applic TP DAILY [facility] Last Admin: 05/17/17 09:29 Dose: 1 applic Diphenhydramine HCl (Benadryl Injection -) 25 mg IVPB ONCE PRN Last Admin: 05/14/17 15:50 Dose: 25 mg Docusate Sodium (Colace -) 100 mg PO BID [facility] Last Admin: 05/17/17 09:23 Dose: 100 mg Heparin Sodium (Porcine) (Heparin -) 5,000 unit SQ TID [facility] Last Admin: 05/17/17 06:23 Dose: Not Given Hydralazine HCl (Apresoline -) 25 mg PO BID [facility] Last Admin: 05/17/17 09:23 Dose: 25 mg Piperacillin/Tazobactam/Dextrose (Zosyn 3.375gm Ivpb (Premix)) 50 mls @ 100 mls /hr IVPB Q8H-IV [facility] Last Admin: 05/17/17 10:58 Dose: 100 mls/hr Insulin Aspart (Novolog Vial Sliding Scale -) 1 vial SQ ACHS [facility] PRN Reason: Protocol Last Admin: 05/17/17 11:39 Dose: 4 units Insulin Detemir (Levemir Vial) 8 units SQ DAILY@0700 [facility] Last Admin: 05/17/17 06:29 Dose: 8 units Levothyroxine Sodium (Synthroid -) 100 mcg PO DAILY@0700 [facility] Last Admin: 05/17/17 06:29 Dose: 100 mcg Pantoprazole Sodium (Protonix -) 40 mg PO DAILY [facility] Last Admin: 05/17/17 09:23 Dose: 40 mg Prednisone (Deltasone -) 60 mg PO DAILY [facility] Last Admin: 05/17/17 09:22 Dose: 60 mg Valacyclovir HCl (Valtrex -) 500 mg PO BID [facility] Last Admin: 05/17/17 09:23 Dose: 500 mg - Objective Vital Signs: Vital Signs Temperature 97.8 F 05/17/17 06:11 Pulse Rate 61 05/17/17 06:11 Respiratory Rate 21 05/17/17 06:11 Blood Pressure 160/76 05/17/17 06:11 O2 Sat by Pulse Oximetry (%) 97 05/16/17 22:00 Constitutional: Yes: Calm Eyes: Yes: Conjunctiva Clear HENT: Yes: Atraumatic Neck: Yes: Supple Cardiovascular: Yes: S1, S2 Respiratory: Yes: CTA Bilaterally Gastrointestinal: Yes: Normal Bowel Sounds, Soft Genitourinary: Yes: WNL Musculoskeletal: Yes: WNL Edema: Yes Edema: LLE: Trace, RLE: Trace Neurological: Yes: Oriented Psychiatric: Yes: Oriented Labs: CBC, BMP 05/17/17 06:00 05/17/17 06:00 INR, PTT INR 1.01 (0.82-1.09) 05/17/17 06:00 Fibrinogen 249.0 mg/dL (238-498) D 05/17/17 06:00 Problem List - Problems (1) Hemoptysis Code(s): R04.2 - HEMOPTYSIS (2) Acute kidney injury Code(s): N17.9 - ACUTE KIDNEY FAILURE, UNSPECIFIED Assessment/Plan Current Medications Generic Name Dose Route Start Last Admin Trade Name Freq PRN Reason Stop Dose Admin Albumin Human 87.5 gm 05/14/17 10:00 05/14/17 14:00 Plasbumin-5 - IVPB 05/18/17 10:01 Not Given Q2D [facility] Atovaquone 1,500 mg 05/16/17 08:00 05/17/17 09:22 Mepron - PO 1,500 mg DAILY@0800 [facility] Administration Calcium Carbonate/Cholecalciferol 2 tab 05/14/17 20:00 05/17/17 09:22 Os-Russ 500+D - PO 2 tab DAILY MIL[facility] Administration Calcium Gluconate 1,000 mg 05/14/17 16:00 Calcium Gluconate 10% - IVPB ONCE PRN Clotrimazole 1 applic 05/11/17 10:00 05/17/17 09:29 Lotrisone Cream (Small Tube) TP 1 applic BID MIL[facility] Administration Collagenase 1 applic 05/12/17 17:00 05/17/17 09:29 Santyl - TP 1 applic DAILY [facility] Administration Diphenhydramine HCl 25 mg 05/14/17 15:40 05/14/17 15:50 Benadryl Injection - IVPB 25 mg ONCE PRN Administration Docusate Sodium 100 mg 05/11/17 22:00 05/17/17 09:23 Colace - PO 100 mg BID MILES Administration Heparin Sodium (Porcine) 5,000 unit 05/14/17 22:00 05/17/17 06:23 Heparin - SQ Not Given TID MILES Hydralazine HCl 25 mg 05/10/17 22:30 05/17/17 09:23 Apresoline - PO 25 mg BID MILES Administration Piperacillin/Tazobactam/Dextrose 50 mls @ 100 mls/hr 05/15/17 14:30 05/17/17 10 :58 Zosyn 3.375gm Ivpb (Premix) IVPB 100 mls/hr Q8H-IV [facility] Administration Insulin Aspart 1 vial 05/11/17 07:00 05/17/17 11:39 Novolog Vial Sliding Scale - SQ 4 units ACHS MILES Administration Protocol Insulin Detemir 8 units 05/15/17 07:00 05/17/17 06:29 Levemir Vial SQ 8 units DAILY@0700 [facility] Administration Levothyroxine Sodium 100 mcg 05/11/17 07:00 05/17/17 06:29 Synthroid - PO 100 mcg DAILY@0700 MIL[facility] Administration Pantoprazole Sodium 40 mg 05/11/17 13:00 05/17/17 09:23 Protonix - PO 40 mg DAILY [facility] Administration Prednisone 60 mg 05/13/17 10:00 05/17/17 09:22 Deltasone - PO 60 mg DAILY MIL[facility] Administration Valacyclovir HCl 500 mg 05/11/17 10:00 05/17/17 09:23 Valtrex - PO 500 mg BID MILES Administration Impression 1. MYRTLE 2. lower extremity ulcer 3. hypothyroid 4. HTN 5. polymyalgia 6. anemia 7. vasculitis microscopic polyangitis 8. thrombophlebitis 9. hemoptysis Plan - plasma exchange in am - will need another dose of rituximab after plasma exchange course is complete - monitor cbc and bmp - rheum follow up - discussed with medical team - will follow closely
--- NOTE | 2017-05-17 15:14 | PN ---
Progress Note (short form) - Note Progress Note: PULMONARY LYING COMFORTABLY IN BED TOLERATED PLASMAPHARESIS NO FURTHER HEMOPTYSIS SINCE ADMISSION HGB/PLTS ARE STABLE VSS/AFEBRILE ANICTERIC SCATTERED MINIMAL EXP RHONCHI POSTERIOR S1S2 BS+ B/L KOWER EXT ULCERS BANDAGED LABS/MEDS/NOTES/IMAGES/MICRO REVIEWED HGB 7.9/PLTS 70K (1) Hemoptysis Code(s): R04.2 - HEMOPTYSIS (2) Acute kidney injury Code(s): N17.9 - ACUTE KIDNEY FAILURE, UNSPECIFIED (3) Bilateral pulmonary infiltrates on chest x-ray Code(s): R91.8 - OTHER NONSPECIFIC ABNORMAL FINDING OF LUNG FIELD Assessment/Plan CONTINUE PREDNISONE/ANTIBIOTICS BRONCHODILATORS/O2 TO KEEP SAT GREATER THAN 90% MONITOR HGB/PLTS PLASMAPHARESIS Nisa MAYS MD Problem List - Problems (1) Hemoptysis Code(s): R04.2 - HEMOPTYSIS (2) Acute kidney injury Code(s): N17.9 - ACUTE KIDNEY FAILURE, UNSPECIFIED (3) Bilateral pulmonary infiltrates on chest x-ray Code(s): R91.8 - OTHER NONSPECIFIC ABNORMAL FINDING OF LUNG FIELD
--- NOTE | 2017-05-17 16:15 | PN ---
Progress Note (short form) - Note Progress Note: Patient seen and examined Feels well Denies any complaints s/p plasmapheresi#2 /7 yesterday Last Vital Signs Temp Pulse Resp BP Pulse Ox 97.8 F 61 21 160/76 97 05/17/17 06:11 05/17/17 06:11 05/17/17 06:11 05/17/17 06:11 05/16/17 22:00 Cor: RSR, No murmurs, No gallops Lungs: Clear to P&A Abd: Soft, Normal bowel sounds, No organomegaly Ext:No significant edema Abnormal Lab Results 05/14/17 05/16/17 05/16/17 10:00 15:00 15:00 RBC 2.85 L Hgb 8.8 L Hct 25.3 L RDW 23.2 H Plt Count 126 L Neutrophils % 96.7 H Lymphocytes % 1.8 L D Monocytes % 0.9 L PT with INR 12.30 H PTT (Actin FS) 59.6 H D Fibrinogen 201.0 L Chloride BUN Creatinine Random Glucose Calcium Magnesium AST Total Protein Albumin Crossmatch See Detail 05/16/17 05/17/17 05/17/17 16:00 06:00 06:00 RBC 2.81 L Hgb 8.6 L Hct 24.7 L RDW 23.4 H Plt Count Neutrophils % Lymphocytes % Monocytes % PT with INR PTT (Actin FS) Fibrinogen Chloride 108 H BUN 47 H 43 H Creatinine 2.3 H 2.3 H Random Glucose 209 H D Calcium 7.2 L 7.1 L Magnesium 1.6 L AST 9 L 9 L Total Protein 5.4 L 5.2 L Albumin 3.1 L Crossmatch 05/17/17 06:00 RBC Hgb Hct RDW Plt Count Neutrophils % Lymphocytes % Monocytes % PT with INR PTT (Actin FS) 55.8 H Fibrinogen Chloride BUN Creatinine Random Glucose Calcium Magnesium AST Total Protein Albumin Crossmatch Active Medications Generic Name Dose Route Start Last Admin Trade Name Freq PRN Reason Stop Dose Admin Albumin Human 87.5 gm 05/14/17 10:00 05/14/17 14:00 Plasbumin-5 - IVPB 05/18/17 10:01 Not Given Q2D [facility] Atovaquone 1,500 mg 05/16/17 08:00 05/17/17 09:22 Mepron - PO 1,500 mg DAILY@0800 [facility] Administration Calcium Carbonate/Cholecalciferol 2 tab 05/14/17 20:00 05/17/17 09:22 Os-Russ 500+D - PO 2 tab DAILY [facility] Administration Calcium Gluconate 1,000 mg 05/14/17 16:00 Calcium Gluconate 10% - IVPB ONCE PRN Clotrimazole 1 applic 05/11/17 10:00 05/17/17 09:29 Lotrisone Cream (Small Tube) TP 1 applic BID [facility] Administration Collagenase 1 applic 05/12/17 17:00 05/17/17 09:29 Santyl - TP 1 applic DAILY [facility] Administration Diphenhydramine HCl 25 mg 05/14/17 15:40 05/14/17 15:50 Benadryl Injection - IVPB 25 mg ONCE PRN Administration Docusate Sodium 100 mg 05/11/17 22:00 05/17/17 09:23 Colace - PO 100 mg BID [facility] Administration Heparin Sodium (Porcine) 5,000 unit 05/14/17 22:00 05/17/17 15:17 Heparin - SQ 5,000 unit TID MILES Administration Hydralazine HCl 25 mg 05/10/17 22:30 05/17/17 09:23 Apresoline - PO 25 mg BID MIL[facility] Administration Piperacillin/Tazobactam/Dextrose 50 mls @ 100 mls/hr 05/15/17 14:30 05/17/17 10 :58 Zosyn 3.375gm Ivpb (Premix) IVPB 100 mls/hr Q8H-IV [facility] Administration Insulin Aspart 1 vial 05/11/17 07:00 05/17/17 11:39 Novolog Vial Sliding Scale - SQ 4 units ACHS [facility] Administration Protocol Insulin Detemir 8 units 05/15/17 07:00 05/17/17 06:29 Levemir Vial SQ 8 units DAILY@0700 [facility] Administration Levothyroxine Sodium 100 mcg 05/11/17 07:00 05/17/17 06:29 Synthroid - PO 100 mcg DAILY@0700 [facility] Administration Pantoprazole Sodium 40 mg 05/11/17 13:00 05/17/17 09:23 Protonix - PO 40 mg DAILY [facility] Administration Prednisone 60 mg 05/13/17 10:00 05/17/17 09:22 Deltasone - PO 60 mg DAILY [facility] Administration Valacyclovir HCl 500 mg 10/21/17 10:00 05/17/17 09:23 Valtrex - PO 500 mg BID [facility] Administration A/P 77 y/o patient with microscopic polyangiitis, with hemoptysis, renal impairment , s/p renal biopsy---04/22/17 s/p pulse steroids, rituxan---3 doses --last 05/08 Now comes in with recurrent hemoptysis, last over weekend, and active urinary sediment also with new onset thrombocytopenia CT ca/p--b/l pulmonary ground glass opacities, gall stones #2/ plasmaexchange with plasma and albumin. 3.5 l exchange. Monitor PT/PTT/ fibrinogen/CBC/Mg post pheresis and daily thrombocytopenia -- ?? ongoing pulmonary process? infection ? vasculitis--on rocephin ? meds HIT neg. improving Superficial vein thrombosis -- Rt. greater saphenous vein -- on heparin SC Noted on 04/26 and 05/14 No change between 04/26 and 05/14 On heparin SC --will change to bid
[2017-05-18] MEDS: PIPERACILLIN/TAZOB 3.375 GM 50 ML IVPB SCH ×3 (01:21→18:25)
[2017-05-18] MEDS: INSULIN DETEMIR 100 UNITS/ML MDV SQ SCH (06:38)
[2017-05-18] MEDS: INSULIN SLIDING SCALE (NOVOLOG) 1 VIAL SQ SCH ×4 (06:39→22:35)
[2017-05-18] MEDS: LEVOTHYROXINE NA 100 MCG TABLET (FP) PO SCH (06:39)
[2017-05-18 06:40] LABS: MCH 30.1 pg (25.7-33.7); MCHC 33.8 g/dl (32.0-36.0); MEAN PLT VOLUME 8.4 fl (7.5-11.1); PLATELET COUNT 175 K/MM3 (134-434); RDW 23.9 % (11.6-15.6); WHITE BLOOD COUNT 7.9 K/mm3 (4.0-10.0)
[2017-05-18 07:22] LABS: ALBUMIN 2.9 g/dl (3.4-5.0); ANION GAP 7 (8-16); BILIRUBIN,TOTAL 0.5 mg/dL (0.2-1.0); CALCIUM 7.7 mg/dL (8.5-10.1); CO2 28 mmol/L (21-32); CREATININE 2.4 mg/dL (0.55-1.02); GLUCOSE,RANDOM 66 mg/dL (74-106); SGOT/AST 7 U/L (15-37); SGPT/ALT 19 U/L (12-78)
[2017-05-18 07:23] LABS: ALK PHOS 50 U/L (45-117); TOT PROT 5.1 g/dl (6.4-8.2)
[2017-05-18 08:17] LABS: PLATELET ESTIMATE DECREASED (NORMAL); TOTAL CELLS COUNTED 100
[2017-05-18 08:18] LABS: ANISOCYTOSIS 2+; HYPOCHROMIA 1+; MICROCYTOSIS 1+; POLYCHROMASIA F
[2017-05-18] MEDS: ALBUMIN HUMAN 5% 250 ML IV SOLUTION IVPB SCH ×2 (08:38→10:43)
[2017-05-18] MEDS ORDERED: PT OWN MED DRAWER 7, Y5N ONE ×2 (09:44→22:17)
[2017-05-18] MEDS: hydrALAZINE HCL 25 MG TABLET (FP) PO SCH ×2 (10:09→22:22)
[2017-05-18] MEDS: PANTOPRAZOLE 40 MG TABLET (FP) PO SCH (10:09)
[2017-05-18] MEDS: ATOVAQUONE 750 MG/5 ML (UNIT-DOSE PACKAGING) PO SCH (10:09)
[2017-05-18] MEDS: DOCUSATE SODIUM 100 MG CAPSULE (FP) PO SCH ×2 (10:10→22:22)
[2017-05-18] MEDS: predniSONE 20 MG TABLET (UD) PO SCH (10:11)
[2017-05-18] MEDS: CLOTRIMAZOLE/BETAMET DIPROP 15 GM TUBE TP SCH ×2 (10:12→22:23)
[2017-05-18] MEDS: HEPARIN NA (PORCINE) 5,000 UNITS/ML 1ML VIAL SQ SCH ×2 (10:12→22:22)
[2017-05-18] MEDS: valACYclovir HCL 500 MG TABLET (FP) PO SCH ×2 (10:13→22:22)
[2017-05-18] MEDS: CALCIUM 500MG/VIT-D 200 UNITS COMBO TABLET (FP) PO SCH (10:13)
[2017-05-18] MEDS: COLLAGENASE CLOSTRIDIUM HIST. 30 GRAMS TUBE TP SCH (10:15)
--- NOTE | 2017-05-18 11:24 | PN ---
Progress Note (short form) - Note Progress Note: Feels overall better. No CP or SOB. No hemoptysis. Plasmapheresis is being set up at bedside. Intake & Output 05/15/17 05/16/17 05/17/17 05/18/17 23:59 23:59 23:59 23:59 Intake Total 750 850 713 50 Balance 750 850 713 50 Last Vital Signs Temp Pulse Resp BP Pulse Ox 97.6 F 66 21 145/70 97 05/18/17 05:38 05/18/17 05:38 05/18/17 05:38 05/18/17 05:38 05/17/17 21:00 Active Medications Atovaquone (Mepron -) 1,500 mg PO DAILY@0800 [facility] Last Admin: 05/18/17 10:09 Dose: 1,500 mg Calcium Carbonate/Cholecalciferol (Os-Russ 500+D -) 2 tab PO DAILY [facility] Last Admin: 05/18/17 10:13 Dose: 2 tab Calcium Gluconate (Calcium Gluconate 10% -) 1,000 mg IVPB ONCE PRN Clotrimazole (Lotrisone Cream (Small Tube)) 1 applic TP BID [facility] Last Admin: 05/18/17 10:12 Dose: 1 applic Collagenase (Santyl -) 1 applic TP DAILY [facility] Last Admin: 05/18/17 10:15 Dose: 1 applic Diphenhydramine HCl (Benadryl Injection -) 25 mg IVPB ONCE PRN Last Admin: 05/14/17 15:50 Dose: 25 mg Docusate Sodium (Colace -) 100 mg PO BID [facility] Last Admin: 05/18/17 10:10 Dose: Not Given Heparin Sodium (Porcine) (Heparin -) 5,000 unit SQ BID [facility] Last Admin: 05/18/17 10:12 Dose: 5,000 unit Hydralazine HCl (Apresoline -) 25 mg PO BID [facility] Last Admin: 05/18/17 10:09 Dose: 25 mg Piperacillin/Tazobactam/Dextrose (Zosyn 3.375gm Ivpb (Premix)) 50 mls @ 100 mls /hr IVPB Q8H-IV [facility] Last Admin: 05/18/17 10:14 Dose: 100 mls/hr Insulin Aspart (Novolog Vial Sliding Scale -) 1 vial SQ ACHS [facility] PRN Reason: Protocol Last Admin: 05/18/17 06:39 Dose: Not Given Insulin Detemir (Levemir Vial) 7 units SQ HS [facility] Levothyroxine Sodium (Synthroid -) 100 mcg PO DAILY@0700 [facility] Last Admin: 05/18/17 06:39 Dose: 100 mcg Pantoprazole Sodium (Protonix -) 40 mg PO DAILY [facility] Last Admin: 05/18/17 10:09 Dose: 40 mg Prednisone (Deltasone -) 60 mg PO DAILY [facility] Last Admin: 05/18/17 10:11 Dose: 60 mg Valacyclovir HCl (Valtrex -) 500 mg PO BID [facility] Last Admin: 05/18/17 10:13 Dose: 500 mg Constitutional: Yes: NAD Eyes: Yes: WNL HENT: Yes: WNL Neck: Yes: Supple Cardiovascular: Yes: Regular Rate and Rhythm, S1, S2 Respiratory: Yes: few scattered rhonchi Extremities: Yes: WNL Peripheral Pulses WNL: No Labs: Laboratory Results - last 24 hr 05/14/17 05/17/17 05/17/17 10:00 11:26 17:22 WBC RBC Hgb Hct MCV MCH MCHC RDW Plt Count MPV Total Counted Neutrophils % Neutrophils % (Manual) Lymphocytes % Lymphocytes % (Manual) Monocytes % (Manual) Eosinophils % (Manual) Hypersegmented Neuts Hypochromia Platelet Estimate Platelet Comment Polychromasia Anisocytosis Microcytosis Sodium Potassium Chloride Carbon Dioxide Anion Gap BUN Creatinine Creat Clearance w eGFR POC Glucometer 297 208 Random Glucose Calcium Total Bilirubin AST ALT Alkaline Phosphatase Total Protein Albumin Random Vancomycin Blood Type O POSITIVE Antibody Screen Negative Crossmatch See Detail 05/17/17 05/18/17 05/18/17 21:46 05:55 05:55 WBC RBC Hgb Hct MCV MCH MCHC RDW Plt Count MPV Total Counted Neutrophils % Neutrophils % (Manual) Lymphocytes % Lymphocytes % (Manual) Monocytes % (Manual) Eosinophils % (Manual) Hypersegmented Neuts Hypochromia Platelet Estimate Platelet Comment Polychromasia Anisocytosis Microcytosis Sodium 144 Potassium 4.1 Chloride 109 H Carbon Dioxide 28 Anion Gap 7 L BUN 41 H Creatinine 2.4 H Creat Clearance w eGFR 19.63 POC Glucometer 237 Random Glucose 66 L Calcium 7.7 L Total Bilirubin 0.5 D AST 7 L D ALT 19 Alkaline Phosphatase 50 Total Protein 5.1 L Albumin 2.9 L Random Vancomycin 16.058 Blood Type Antibody Screen Crossmatch 05/18/17 05/18/17 05/18/17 05:55 06:38 09:00 WBC 7.9 RBC 2.69 L Hgb 8.1 L Hct 23.9 L MCV 89.0 MCH 30.1 MCHC 33.8 RDW 23.9 H Plt Count 175 MPV 8.4 Total Counted 100 Neutrophils % No Result Required. Neutrophils % (Manual) 83 H Lymphocytes % No Result Required. Lymphocytes % (Manual) 12 D Monocytes % (Manual) 4 D Eosinophils % (Manual) 1 Hypersegmented Neuts 1+ Hypochromia 1+ Platelet Estimate Decreased Platelet Comment No clumping noted Polychromasia F Anisocytosis 2+ Microcytosis 1+ Sodium Potassium Chloride Carbon Dioxide Anion Gap BUN Creatinine Creat Clearance w eGFR POC Glucometer 73 Random Glucose Calcium Total Bilirubin AST ALT Alkaline Phosphatase Total Protein Albumin Random Vancomycin Blood Type Antibody Screen Crossmatch See Detail Problem List - Problems (1) Microscopic polyangiitis Code(s): M31.7 - MICROSCOPIC POLYANGIITIS (2) Bilateral pulmonary infiltrates on chest x-ray Code(s): R91.8 - OTHER NONSPECIFIC ABNORMAL FINDING OF LUNG FIELD (3) Hypertension Code(s): I10 - ESSENTIAL (PRIMARY) HYPERTENSION (4) Hypothyroid Code(s): E03.9 - HYPOTHYROIDISM, UNSPECIFIED (5) Vasculitis Code(s): I77.6 - ARTERITIS, UNSPECIFIED (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
--- NOTE | 2017-05-18 12:19 | PN ---
Progress Note (short form) - Note Progress Note: Hematology/Oncology follow-up note S: Patient feels well when visited today. She is receiving a plasma exchange with no new complaints. Last Vital Signs Temp Pulse Resp BP Pulse Ox 97.6 F 66 21 145/70 97 05/18/17 05:38 05/18/17 05:38 05/18/17 05:38 05/18/17 05:38 05/17/17 21:00 Cor: RSR, No murmurs, No gallops Lungs: Clear to P&A Abd: Soft, Normal bowel sounds, No organomegaly Ext:No significant edema CBC, BMP 05/18/17 05:55 05/18/17 05:55 Current Medications Generic Name Dose Route Start Last Admin Trade Name Freq PRN Reason Stop Dose Admin Atovaquone 1,500 mg 05/16/17 08:00 05/18/17 10:09 Mepron - PO 1,500 mg DAILY@0800 MILES Administration Calcium Carbonate/Cholecalciferol 2 tab 05/14/17 20:00 05/18/17 10:13 Os-Russ 500+D - PO 2 tab DAILY MILES Administration Calcium Gluconate 1,000 mg 05/14/17 16:00 Calcium Gluconate 10% - IVPB ONCE PRN Clotrimazole 1 applic 05/11/17 10:00 05/18/17 10:12 Lotrisone Cream (Small Tube) TP 1 applic BID MILES Administration Collagenase 1 applic 05/12/17 17:00 05/18/17 10:15 Santyl - TP 1 applic DAILY MILES Administration Diphenhydramine HCl 25 mg 05/14/17 15:40 05/14/17 15:50 Benadryl Injection - IVPB 25 mg ONCE PRN Administration Docusate Sodium 100 mg 05/11/17 22:00 05/18/17 10:10 Colace - PO Not Given BID MILES Heparin Sodium (Porcine) 5,000 unit 05/17/17 22:00 05/18/17 10:12 Heparin - SQ 5,000 unit BID MILES Administration Hydralazine HCl 25 mg 05/10/17 22:30 05/18/17 10:09 Apresoline - PO 25 mg BID MILES Administration Piperacillin/Tazobactam/Dextrose 50 mls @ 100 mls/hr 05/15/17 14:30 05/18/17 10 :14 Zosyn 3.375gm Ivpb (Premix) IVPB 100 mls/hr Q8H-IV MILES Administration Insulin Aspart 1 vial 05/11/17 07:00 05/18/17 12:17 Novolog Vial Sliding Scale - SQ Not Given ACHS COUNT INCLUDES [facility] Protocol Insulin Detemir 7 units 05/19/17 22:00 Levemir Vial SQ HS MILES Levothyroxine Sodium 100 mcg 05/11/17 07:00 05/18/17 06:39 Synthroid - PO 100 mcg DAILY@0700 MILES Administration Pantoprazole Sodium 40 mg 05/11/17 13:00 05/18/17 10:09 Protonix - PO 40 mg DAILY MILES Administration Prednisone 60 mg 05/13/17 10:00 05/18/17 10:11 Deltasone - PO 60 mg DAILY MILES Administration Valacyclovir HCl 500 mg 05/11/17 10:00 05/18/17 10:13 Valtrex - PO 500 mg BID MILES Administration A/P is a 77 y/o female with Hx of microscopic polyangitis with resultant renal impairment s/p 3 doses of pulsed rituxan on 05/08. She is now admitted with recurrent hemoptysis and new onset thrombocytopenia. -platelets are stable today, will continue to monitor -please check PT,PTT, fibronogen, mag and phos after she has had plasma exchange as these need to be checked everyday and repleted as necessary -on heparin SC BID for SVT -stable pulmonary status today Will continue to monitor closely.
--- NOTE | 2017-05-18 12:50 | PN ---
Physical Exam: SUBJECTIVE: Patient seen and examined. during Plasmapheresis. She feels well, is having a better day. Denies sob, wheezing. OBJECTIVE: Vital Signs Period Temp Pulse Resp BP Sys/Horn Pulse Ox Last 24 Hr 97.6 F-98 F 58-66 18-21 130-150/70-72 97 PE Neuro: alert, awake, cn 2-12intact Pulm: CTAB CV: S1 s2 rrr no mrg Abd: s nt nd + bs : R buttock medial abscess, induration- resolving, L posterior wound Ext: Lower ext wounds b/l, LLE edema + 2 Skin: R femoral shiley Laboratory Results - last 24 hr 05/18/17 05/18/17 05/18/17 05:55 05:55 05:55 WBC 7.9 RBC 2.69 L Hgb 8.1 L Hct 23.9 L MCV 89.0 MCH 30.1 MCHC 33.8 RDW 23.9 H Plt Count 175 MPV 8.4 Total Counted 100 Neutrophils % No Result Required. Neutrophils % (Manual) 83 H Lymphocytes % No Result Required. Lymphocytes % (Manual) 12 D Monocytes % (Manual) 4 D Eosinophils % (Manual) 1 Hypersegmented Neuts 1+ Hypochromia 1+ Platelet Estimate Decreased Platelet Comment No clumping noted Polychromasia F Anisocytosis 2+ Microcytosis 1+ Sodium 144 Potassium 4.1 Chloride 109 H Carbon Dioxide 28 Anion Gap 7 L BUN 41 H Creatinine 2.4 H Creat Clearance w eGFR 19.63 POC Glucometer Random Glucose 66 L Calcium 7.7 L Total Bilirubin 0.5 D AST 7 L D ALT 19 Alkaline Phosphatase 50 Total Protein 5.1 L Albumin 2.9 L Random Vancomycin 16.058 Blood Type Antibody Screen Crossmatch Active Medications Generic Name Dose Route Start Last Admin Trade Name Freq PRN Reason Stop Dose Admin Atovaquone 1,500 mg 05/16/17 08:00 05/18/17 10:09 Mepron - PO 1,500 mg DAILY@0800 MILES Administration Calcium Carbonate/Cholecalciferol 2 tab 05/14/17 20:00 05/18/17 10:13 Os-Russ 500+D - PO 2 tab DAILY MILES Administration Calcium Gluconate 1,000 mg 05/14/17 16:00 Calcium Gluconate 10% - IVPB ONCE PRN Clotrimazole 1 applic 10/21/17 10:00 05/18/17 10:12 Lotrisone Cream (Small Tube) TP 1 applic BID MILES Administration Collagenase 1 applic 05/12/17 17:00 05/18/17 10:15 Santyl - TP 1 applic DAILY MILES Administration Diphenhydramine HCl 25 mg 05/14/17 15:40 05/14/17 15:50 Benadryl Injection - IVPB 25 mg ONCE PRN Administration Docusate Sodium 100 mg 05/11/17 22:00 05/18/17 10:10 Colace - PO Not Given BID MILES Heparin Sodium (Porcine) 5,000 unit 05/17/17 22:00 05/18/17 10:12 Heparin - SQ 5,000 unit BID MILES Administration Hydralazine HCl 25 mg 05/10/17 22:30 05/18/17 10:09 Apresoline - PO 25 mg BID MILES Administration Piperacillin/Tazobactam/Dextrose 50 mls @ 100 mls/hr 05/15/17 14:30 05/18/17 10 :14 Zosyn 3.375gm Ivpb (Premix) IVPB 100 mls/hr Q8H-IV MILES Administration Insulin Aspart 1 vial 05/11/17 07:00 05/18/17 12:17 Novolog Vial Sliding Scale - SQ Not Given ACHS [facility] Protocol Insulin Detemir 7 units 05/19/17 22:00 Levemir Vial SQ HS MILES Levothyroxine Sodium 100 mcg 05/11/17 07:00 05/18/17 06:39 Synthroid - PO 100 mcg DAILY@0700 MILES Administration Pantoprazole Sodium 40 mg 05/11/17 13:00 05/18/17 10:09 Protonix - PO 40 mg DAILY MILES Administration Prednisone 60 mg 05/13/17 10:00 05/18/17 10:11 Deltasone - PO 60 mg DAILY MILES Administration Valacyclovir HCl 500 mg 05/11/17 10:00 05/18/17 10:13 Valtrex - PO 500 mg BID MILES Administration Assessment: 77 year old female with pmhx of HTN, chronic venous stasis lower extremity ulcers, polymyalgia rheumatica, and hypothyroidism recent admission on 05/10 diagnosed with microscopic polyangitis, s/p 3 doses rituxan, admitted with isolate hemoptysis. Plan: 1. Microscopic polyangitis vasculitis - Plasmapheresis 3 of 7 tody (q every other day) - Following exchange get PT, PTT, fibrinogen, mg, phos levels - Severino placed 05/14 - Hold rituxan until completion of plasmaphersis - Prednisone 60mg daily - Valtrex BID - Started mepron pcp ppx 2. R buttock abscess - No acute intervention at this point, improving with abx - D/w Dr. Silvestre, if worsens MRI 3. Left posterior thigh wound + MRSA - Continue zosyn - Vanco 05/17 - Level therapeutic - Follow levels d/t CKD - ID seeing 4. UTI,Klebsiella - Zosyn (day 4) started 05/15 5. Acute on chronic anemia - Hgb stable - 1uprbc 05/14 6. Thrombocytopenia - Due to chronic disease, and infection - Plt improved, monitor daily 7. CKD - Cr mildly elevated 8. Hypothyroid - Synthroid daily 9. Hemoptysis - Resolved 10. HTN - Controlled - Hydralazine 25mg BID 11. Prophylaxis DVT: Heparin TID Protonix 12. Left posterior thigh wound - Daily dressing change with packing 13. DM II - Change levemir 7 units Visit type - Emergency Visit Emergency Visit: Yes ED Registration Date: 05/12/17 Care time: The patient presented to the Emergency Department on the above date and was hospitalized for further evaluation of their emergent condition. - New Patient This patient is new to me today: No - Critical Care Critical Care patient: No
--- NOTE | 2017-05-18 13:14 | PN ---
Progress Note (short form) - Note Progress Note: On plasmapheresis No further bleeding from groin. Wounds unchanged.
[2017-05-18 15:37] LABS: MCH 30.4 pg (25.7-33.7); MCHC 33.5 g/dl (32.0-36.0); MEAN CELL VOLUME 90.6 fl (80-96); MEAN PLT VOLUME 9.1 fl (7.5-11.1); PLATELET COUNT 138 K/MM3 (134-434); RDW 24.1 % (11.6-15.6); WHITE BLOOD COUNT 3.2 K/mm3 (4.0-10.0)
[2017-05-18 15:52] LABS: INR 1.13 (0.82-1.09); PROTHROMBIN TIME (PATIENT) 12.8 SEC (9.98-11.88)
[2017-05-18 15:54] LABS: ACTIVATED PTT 31.2 SECONDS (26.9-34.4)
[2017-05-18 16:33] LABS: ALBUMIN 3.8 g/dl (3.4-5.0); ALK PHOS 52 U/L (45-117); ANION GAP 12 (8-16); BILIRUBIN,TOTAL 0.7 mg/dL (0.2-1.0); CALCIUM 7.6 mg/dL (8.5-10.1); CO2 24 mmol/L (21-32); CREATININE 1.9 mg/dL (0.55-1.02); GLUCOSE,RANDOM 250 mg/dL (74-106); MAGNESIUM 1.8 mg/dL (1.8-2.4); PHOSPHOROUS 3.2 mg/dL (2.5-4.9); SGOT/AST 13 U/L (15-37); SGPT/ALT 18 U/L (12-78); TOT PROT 5.3 g/dl (6.4-8.2)
[2017-05-18] MEDS ORDERED: INSULIN (NOVOLOG) ASPART 100 UNITS/ML 10ML VIAL ONE (22:32)
[2017-05-19] MEDS: PIPERACILLIN/TAZOB 3.375 GM 50 ML IVPB SCH ×3 (02:02→17:14)
[2017-05-19] MEDS: INSULIN SLIDING SCALE (NOVOLOG) 1 VIAL SQ SCH ×4 (06:14→21:39)
[2017-05-19] MEDS: LEVOTHYROXINE NA 100 MCG TABLET (FP) PO SCH (06:15)
[2017-05-19] MEDS ORDERED: PT OWN MED DRAWER 7, Y5N ONE ×3 (08:26→21:34)
[2017-05-19 08:47] LABS: MCH 30.8 pg (25.7-33.7); MCHC 34.9 g/dl (32.0-36.0); MEAN CELL VOLUME 88.3 fl (80-96); MEAN PLT VOLUME 8.6 fl (7.5-11.1); PLATELET COUNT 202 K/MM3 (134-434); RDW 21.8 % (11.6-15.6); WHITE BLOOD COUNT 5.1 K/mm3 (4.0-10.0)
[2017-05-19 09:16] LABS: ALBUMIN 3.9 g/dl (3.4-5.0); ANION GAP 10 (8-16); CO2 26 mmol/L (21-32); GLUCOSE,RANDOM 82 mg/dL (74-106); SGOT/AST 15 U/L (15-37); SGPT/ALT 23 U/L (12-78)
[2017-05-19 09:20] LABS: ALK PHOS 55 U/L (45-117); TOT PROT 6.1 g/dl (6.4-8.2)
[2017-05-19] MEDS: ATOVAQUONE 750 MG/5 ML (UNIT-DOSE PACKAGING) PO SCH (09:43)
[2017-05-19] MEDS: valACYclovir HCL 500 MG TABLET (FP) PO SCH ×2 (09:43→21:39)
[2017-05-19] MEDS: CALCIUM 500MG/VIT-D 200 UNITS COMBO TABLET (FP) PO SCH (09:44)
[2017-05-19] MEDS: hydrALAZINE HCL 25 MG TABLET (FP) PO SCH ×2 (09:44→21:39)
[2017-05-19] MEDS: DOCUSATE SODIUM 100 MG CAPSULE (FP) PO SCH ×2 (09:44→21:39)
[2017-05-19] MEDS: HEPARIN NA (PORCINE) 5,000 UNITS/ML 1ML VIAL SQ SCH ×2 (09:44→21:39)
[2017-05-19] MEDS: predniSONE 20 MG TABLET (UD) PO SCH (09:44)
[2017-05-19] MEDS: PANTOPRAZOLE 40 MG TABLET (FP) PO SCH (09:44)
[2017-05-19] MEDS: CLOTRIMAZOLE/BETAMET DIPROP 15 GM TUBE TP SCH ×2 (09:45→21:40)
[2017-05-19] MEDS: COLLAGENASE CLOSTRIDIUM HIST. 30 GRAMS TUBE TP SCH (09:45)
--- NOTE | 2017-05-19 11:13 | PN ---
Progress Note (short form) - Note Progress Note: Feels overall better. No CP or SOB. No hemoptysis. Plasmapheresis yesterday. Intake & Output 05/16/17 05/17/17 05/18/17 05/19/17 23:59 23:59 23:59 23:59 Intake Total 466 671 7530 Output Total 1175 Balance 850 713 745 Last Vital Signs Temp Pulse Resp BP Pulse Ox 98.4 F 60 18 150/70 97 05/19/17 08:12 05/19/17 08:12 05/19/17 08:12 05/19/17 08:12 05/18/17 22:00 Active Medications Atovaquone (Mepron -) 1,500 mg PO DAILY@0800 [facility] Last Admin: 05/19/17 09:43 Dose: 1,500 mg Calcium Carbonate/Cholecalciferol (Os-Russ 500+D -) 2 tab PO DAILY [facility] Last Admin: 05/19/17 09:44 Dose: 2 tab Calcium Gluconate (Calcium Gluconate 10% -) 1,000 mg IVPB ONCE PRN Clotrimazole (Lotrisone Cream (Small Tube)) 1 applic TP BID [facility] Last Admin: 05/19/17 09:45 Dose: 1 applic Collagenase (Santyl -) 1 applic TP DAILY [facility] Last Admin: 05/19/17 09:45 Dose: 1 applic Diphenhydramine HCl (Benadryl Injection -) 25 mg IVPB ONCE PRN Last Admin: 05/14/17 15:50 Dose: 25 mg Docusate Sodium (Colace -) 100 mg PO BID [facility] Last Admin: 05/19/17 09:44 Dose: 100 mg Heparin Sodium (Porcine) (Heparin -) 5,000 unit SQ BID [facility] Last Admin: 05/19/17 09:44 Dose: 5,000 unit Hydralazine HCl (Apresoline -) 25 mg PO BID [facility] Last Admin: 05/19/17 09:44 Dose: 25 mg Piperacillin/Tazobactam/Dextrose (Zosyn 3.375gm Ivpb (Premix)) 50 mls @ 100 mls /hr IVPB Q8H-IV [facility] Last Admin: 05/19/17 09:45 Dose: 100 mls/hr Insulin Aspart (Novolog Vial Sliding Scale -) 1 vial SQ ACHS [facility] PRN Reason: Protocol Last Admin: 05/19/17 06:14 Dose: Not Given Insulin Detemir (Levemir Vial) 7 units SQ HS [facility] Levothyroxine Sodium (Synthroid -) 100 mcg PO DAILY@0700 [facility] Last Admin: 05/19/17 06:15 Dose: 100 mcg Pantoprazole Sodium (Protonix -) 40 mg PO DAILY [facility] Last Admin: 05/19/17 09:44 Dose: 40 mg Prednisone (Deltasone -) 60 mg PO DAILY [facility] Last Admin: 05/19/17 09:44 Dose: 60 mg Valacyclovir HCl (Valtrex -) 500 mg PO BID [facility] Last Admin: 05/19/17 09:43 Dose: 500 mg Constitutional: Yes: NAD Eyes: Yes: WNL HENT: Yes: WNL Neck: Yes: Supple Cardiovascular: Yes: Regular Rate and Rhythm, S1, S2 Respiratory: Yes: few scattered rhonchi Extremities: Yes: WNL Peripheral Pulses WNL: No Labs: Laboratory Results - last 24 hr 05/14/17 05/18/17 05/18/17 10:00 09:00 11:53 WBC RBC Hgb Hct MCV MCH MCHC RDW Plt Count MPV Neutrophils % Lymphocytes % PT with INR INR PTT (Actin FS) Fibrinogen Sodium Potassium Chloride Carbon Dioxide Anion Gap BUN Creatinine Creat Clearance w eGFR POC Glucometer 131 Random Glucose Calcium Phosphorus Magnesium Total Bilirubin AST ALT Alkaline Phosphatase Total Protein Albumin Random Vancomycin Blood Type O POSITIVE O POSITIVE Antibody Screen Negative Negative Crossmatch See Detail 05/18/17 05/18/17 05/18/17 13:30 13:30 13:30 WBC 3.2 L D RBC 2.70 L Hgb 8.2 L Hct 24.4 L MCV 90.6 MCH 30.4 MCHC 33.5 RDW 24.1 H Plt Count 138 D MPV 9.1 Neutrophils % Lymphocytes % PT with INR INR PTT (Actin FS) Fibrinogen 146.0 L D Sodium 142 Potassium 3.8 Chloride 106 Carbon Dioxide 24 Anion Gap 12 BUN 37 H Creatinine 1.9 H D Creat Clearance w eGFR 25.70 POC Glucometer Random Glucose 250 H D Calcium 7.6 L Phosphorus 3.2 Magnesium 1.8 Total Bilirubin 0.7 D AST 13 L D ALT 18 Alkaline Phosphatase 52 Total Protein 5.3 L Albumin 3.8 D Random Vancomycin Blood Type Antibody Screen Crossmatch 05/18/17 05/18/17 05/18/17 13:30 17:00 22:21 WBC RBC Hgb Hct MCV MCH MCHC RDW Plt Count MPV Neutrophils % Lymphocytes % PT with INR 12.80 H INR 1.13 PTT (Actin FS) 31.2 D Fibrinogen Sodium Potassium Chloride Carbon Dioxide Anion Gap BUN Creatinine Creat Clearance w eGFR POC Glucometer 231 227 Random Glucose Calcium Phosphorus Magnesium Total Bilirubin AST ALT Alkaline Phosphatase Total Protein Albumin Random Vancomycin Blood Type Antibody Screen Crossmatch 05/19/17 05/19/17 05/19/17 05:42 07:34 07:34 WBC 5.1 D RBC 3.44 L D Hgb 10.6 L D Hct 30.4 L D MCV 88.3 MCH 30.8 MCHC 34.9 RDW 21.8 H Plt Count 202 D MPV 8.6 Neutrophils % No Result Required. Lymphocytes % No Result Required. PT with INR INR PTT (Actin FS) Fibrinogen Sodium Potassium Chloride Carbon Dioxide Anion Gap BUN Creatinine Creat Clearance w eGFR POC Glucometer 126 Random Glucose Calcium Phosphorus Magnesium Total Bilirubin AST ALT Alkaline Phosphatase Total Protein Albumin Random Vancomycin 10.950 Blood Type Antibody Screen Crossmatch 05/19/17 07:34 WBC RBC Hgb Hct MCV MCH MCHC RDW Plt Count MPV Neutrophils % Lymphocytes % PT with INR INR PTT (Actin FS) Fibrinogen Sodium 143 Potassium 3.6 Chloride 107 Carbon Dioxide 26 Anion Gap 10 BUN 33 H Creatinine 2.0 H Creat Clearance w eGFR 24.22 POC Glucometer Random Glucose 82 D Calcium 8.0 L Phosphorus Magnesium Total Bilirubin 1.0 D AST 15 ALT 23 D Alkaline Phosphatase 55 Total Protein 6.1 L Albumin 3.9 Random Vancomycin Blood Type Antibody Screen Crossmatch Problem List - Problems (1) Microscopic polyangiitis Code(s): M31.7 - MICROSCOPIC POLYANGIITIS (2) Bilateral pulmonary infiltrates on chest x-ray Code(s): R91.8 - OTHER NONSPECIFIC ABNORMAL FINDING OF LUNG FIELD (3) Hypertension Code(s): I10 - ESSENTIAL (PRIMARY) HYPERTENSION (4) Hypothyroid Code(s): E03.9 - HYPOTHYROIDISM, UNSPECIFIED (5) Vasculitis Code(s): I77.6 - ARTERITIS, UNSPECIFIED (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
[2017-05-19 11:44] LABS: PLATELET ESTIMATE ADEQUATE (NORMAL); TOTAL CELLS COUNTED 100
[2017-05-19 11:45] LABS: ANISOCYTOSIS 2+; MACROCYTOSIS 2+; POLYCHROMASIA 1+
--- NOTE | 2017-05-19 12:03 | PN ---
Progress Note (short form) - Note Progress Note: Hematology/Oncology follow-up note S: Patient feels well when visited today. She received a plasma exchange yesterday Last Vital Signs Temp Pulse Resp BP Pulse Ox 98.4 F 60 18 150/70 97 05/19/17 08:12 05/19/17 08:12 05/19/17 08:12 05/19/17 08:12 05/19/17 09:00 Cor: RSR, No murmurs, No gallops Lungs: Clear to P&A Abd: Soft, Normal bowel sounds, No organomegaly Ext:No significant edema CBC, BMP 05/19/17 07:34 05/19/17 07:34 05/18/17 (After plasma exchange labs) Fibrinogen : 146, PT ::12.8, ptt : 31, Mag : 1.8, Phos : 3.2 Current Medications Generic Name Dose Route Start Last Admin Trade Name Freq PRN Reason Stop Dose Admin Atovaquone 1,500 mg 05/16/17 08:00 05/19/17 09:43 Mepron - PO 1,500 mg DAILY@0800 MILES Administration Calcium Carbonate/Cholecalciferol 2 tab 05/14/17 20:00 05/19/17 09:44 Os-Russ 500+D - PO 2 tab DAILY MILES Administration Calcium Gluconate 1,000 mg 05/14/17 16:00 Calcium Gluconate 10% - IVPB ONCE PRN Clotrimazole 1 applic 05/11/17 10:00 05/19/17 09:45 Lotrisone Cream (Small Tube) TP 1 applic BID MILES Administration Collagenase 1 applic 05/12/17 17:00 05/19/17 09:45 Santyl - TP 1 applic DAILY MILES Administration Diphenhydramine HCl 25 mg 05/14/17 15:40 05/14/17 15:50 Benadryl Injection - IVPB 25 mg ONCE PRN Administration Docusate Sodium 100 mg 05/11/17 22:00 05/19/17 09:44 Colace - PO 100 mg BID MILES Administration Heparin Sodium (Porcine) 5,000 unit 05/17/17 22:00 05/19/17 09:44 Heparin - SQ 5,000 unit BID MILES Administration Hydralazine HCl 25 mg 05/10/17 22:30 05/19/17 09:44 Apresoline - PO 25 mg BID MILES Administration Piperacillin/Tazobactam/Dextrose 50 mls @ 100 mls/hr 05/15/17 14:30 05/19/17 09 :45 Zosyn 3.375gm Ivpb (Premix) IVPB 100 mls/hr Q8H-IV MILES Administration Insulin Aspart 1 vial 05/11/17 07:00 05/19/17 11:56 Novolog Vial Sliding Scale - SQ Not Given ACHS [facility] Protocol Insulin Detemir 7 units 05/19/17 22:00 Levemir Vial SQ HS MILES Levothyroxine Sodium 100 mcg 05/11/17 07:00 05/19/17 06:15 Synthroid - PO 100 mcg DAILY@0700 MILES Administration Pantoprazole Sodium 40 mg 05/11/17 13:00 05/19/17 09:44 Protonix - PO 40 mg DAILY MILES Administration Prednisone 60 mg 05/13/17 10:00 05/19/17 09:44 Deltasone - PO 60 mg DAILY MILES Administration Valacyclovir HCl 500 mg 05/11/17 10:00 05/19/17 09:43 Valtrex - PO 500 mg BID MILES Administration A/P is a 77 y/o female with Hx of microscopic polyangitis with resultant renal impairment s/p 3 doses of pulsed rituxan on 05/08. She is now admitted with recurrent hemoptysis and new onset thrombocytopenia. -H/H improved s/p one unit pRBC transfusion yesterday -platelets are stable today, will continue to monitor -PT,PTT, fibronogen, mag and phos checked after plasma exchange, patient requires daily monitoring but no repletion today -on heparin SC BID for SVT -stable pulmonary status today Will continue to monitor closely.
[2017-05-19] MEDS ORDERED: VANCOMYCIN 1 GRAM (PRE-DOCKED) 1,000 MG/250 ML BAG IVPB ONE (13:43)
--- NOTE | 2017-05-19 13:43 | PN ---
Progress Note (short form) - Note Progress Note: reports less buttock discomfort no hemoptysis Vital Signs Period Temp Pulse Resp BP Sys/Horn Pulse Ox Last 24 Hr 97.8 F-98.4 F 54-69 18-20 134-150/65-75 97-97 cor-rrr lungs clear abd soft,nt ext less induration of the left buttock but still some induration present CBC, BMP 05/19/17 07:34 05/19/17 07:34 ct scan- phlegmon left buttock Laboratory Tests 05/19/17 07:34 Random Vancomycin 10.950 a/p immunosuppressed patient on plasmapharesis and steroids-microscopic polyangiitis ct scan with phlegmon vancomycin based on levels, continue zosyn redose vancomycin today continue valtrex for hsv suppression mepron for pcp prophylaxis MRSA contact isolation Problem List - Problems (1) Perirectal abscess Code(s): K61.1 - RECTAL ABSCESS (2) Microscopic polyangiitis Code(s): M31.7 - MICROSCOPIC POLYANGIITIS (3) MRSA (methicillin resistant staph aureus) culture positive Code(s): Z22.322 - CARRIER OR SUSPECTED CARRIER OF METHICILLIN RESIS STAPH
--- NOTE | 2017-05-19 14:32 | PN ---
Physical Exam: SUBJECTIVE: Patient seen and examined. She has no complaints, she is resting today. Denies cough, fever, chills. Events: - 1uprbc yesterday OBJECTIVE: Vital Signs Period Temp Pulse Resp BP Sys/Horn Pulse Ox Last 24 Hr 97.8 F-98.4 F 54-69 18-20 134-150/65-75 97-97 PE Neuro: alert, awake, cn 2-12intact Pulm: CTAB CV: S1 s2 rrr no mrg Abd: s nt nd + bs : R buttock medial abscess, induration- resolving, L posterior thigh wound Ext: Lower ext wounds b/l, LLE edema + 2 Skin: R femoral shiley Laboratory Results - last 24 hr 05/19/17 05/19/17 05/19/17 07:34 07:34 07:34 WBC 5.1 D RBC 3.44 L D Hgb 10.6 L D Hct 30.4 L D MCV 88.3 MCH 30.8 MCHC 34.9 RDW 21.8 H Plt Count 202 D MPV 8.6 Total Counted 100 Neutrophils % No Result Required. Neutrophils % (Manual) 71 Band Neuts % (Manual) 8 D Lymphocytes % No Result Required. Lymphocytes % (Manual) 17 D Monocytes % (Manual) 4 Platelet Estimate Adequate Polychromasia 1+ Anisocytosis 2+ Macrocytosis 2+ PT with INR INR PTT (Actin FS) Fibrinogen Sodium 143 Potassium 3.6 Chloride 107 Carbon Dioxide 26 Anion Gap 10 BUN 33 H Creatinine 2.0 H Creat Clearance w eGFR 24.22 POC Glucometer Random Glucose 82 D Calcium 8.0 L Phosphorus Magnesium Total Bilirubin 1.0 D AST 15 ALT 23 D Alkaline Phosphatase 55 Total Protein 6.1 L Albumin 3.9 Random Vancomycin 10.950 Blood Type Antibody Screen Crossmatch Active Medications Generic Name Dose Route Start Last Admin Trade Name Freq PRN Reason Stop Dose Admin Atovaquone 1,500 mg 05/16/17 08:00 05/19/17 09:43 Mepron - PO 1,500 mg DAILY@0800 MILES Administration Calcium Carbonate/Cholecalciferol 2 tab 05/14/17 20:00 05/19/17 09:44 Os-Russ 500+D - PO 2 tab DAILY MILES Administration Calcium Gluconate 1,000 mg 05/14/17 16:00 Calcium Gluconate 10% - IVPB ONCE PRN Clotrimazole 1 applic 05/11/17 10:00 05/19/17 09:45 Lotrisone Cream (Small Tube) TP 1 applic BID MILES Administration Collagenase 1 applic 05/12/17 17:00 05/19/17 09:45 Santyl - TP 1 applic DAILY MILES Administration Diphenhydramine HCl 25 mg 05/14/17 15:40 05/14/17 15:50 Benadryl Injection - IVPB 25 mg ONCE PRN Administration Docusate Sodium 100 mg 05/11/17 22:00 05/19/17 09:44 Colace - PO 100 mg BID MILES Administration Heparin Sodium (Porcine) 5,000 unit 05/17/17 22:00 05/19/17 09:44 Heparin - SQ 5,000 unit BID MILES Administration Hydralazine HCl 25 mg 05/10/17 22:30 05/19/17 09:44 Apresoline - PO 25 mg BID MILES Administration Piperacillin/Tazobactam/Dextrose 50 mls @ 100 mls/hr 05/15/17 14:30 05/19/17 09 :45 Zosyn 3.375gm Ivpb (Premix) IVPB 100 mls/hr Q8H-IV MILES Administration Insulin Aspart 1 vial 05/11/17 07:00 05/19/17 11:56 Novolog Vial Sliding Scale - SQ Not Given ACHS [facility] Protocol Insulin Detemir 7 units 05/19/17 22:00 Levemir Vial SQ HS MILES Levothyroxine Sodium 100 mcg 05/11/17 07:00 05/19/17 06:15 Synthroid - PO 100 mcg DAILY@0700 MIL[facility] Administration Pantoprazole Sodium 40 mg 05/11/17 13:00 05/19/17 09:44 Protonix - PO 40 mg DAILY MILES Administration Prednisone 60 mg 05/13/17 10:00 05/19/17 09:44 Deltasone - PO 60 mg DAILY MILES Administration Valacyclovir HCl 500 mg 05/11/17 10:00 05/19/17 09:43 Valtrex - PO 500 mg BID MILES Administration Vancomycin HCl 1,000 mg 05/19/17 13:43 Vancomycin (Pre-Docked) IVPB 05/19/17 13:44 ONCE ONE Protocol Assessment: 77 year old female with pmhx of HTN, chronic venous stasis lower extremity ulcers, polymyalgia rheumatica, and hypothyroidism recent admission on 05/10 diagnosed with microscopic polyangitis, s/p 3 doses rituxan, admitted with isolate hemoptysis, jamarcus placed 05/14 for 7 days plasmapheresis. Plan: 1. Microscopic polyangitis vasculitis - Tomorrow Plasmapheresis (q every other day) - 3 of 7 completed - Following exchange get PT, PTT, fibrinogen, mg, phos levels - Will give x1 dose mg 400mg - Hold rituxan until completion of plasmaphersis - Prednisone 60mg daily - Valtrex BID - Started mepron pcp ppx 2. R buttock abscess - Improving, cont abx 3. Left posterior thigh wound + MRSA - Continue Zosyn - Vanco dose today - Check levels - Follow levels d/t CKD - ID seeing 4. UTI,Klebsiella - Zosyn (day 5) started 05/15 5. Acute on chronic anemia - Transfused 1 units yesterday - Monitor cbc - Transfusions: 1uprbc 05/14, 6. Thrombocytopenia - Due to chronic disease, and infection - Plt improved, monitor daily 7. CKD - Cr mildly elevated 8. Hypothyroid - Synthroid daily 9. Hemoptysis - Resolved 10. HTN - Controlled - Hydralazine 25mg BID 11. Prophylaxis DVT: Heparin BID Protonix 12. Left posterior thigh wound - Daily dressing change with packing 13. DM II - Change levemir 7 units hs Visit type - Emergency Visit Emergency Visit: Yes ED Registration Date: 05/12/17 Care time: The patient presented to the Emergency Department on the above date and was hospitalized for further evaluation of their emergent condition. - New Patient This patient is new to me today: No - Critical Care Critical Care patient: No
[2017-05-19] MEDS ORDERED: MAGNESIUM OXIDE 400 MG TABLET (FP) PO ONE (14:40)
[2017-05-19] MEDS ORDERED: VANCOMYCIN 1,000 MG in DEXTROSE 5%-WATER - 250 ML IVPB ONE (15:00)
--- NOTE | 2017-05-19 18:59 | PN ---
Progress Note (short form) - Note Progress Note: vasculitis for plasma exchange tomorrow Current Medications Atovaquone (Mepron -) 1,500 mg PO DAILY@0800 [facility] Last Admin: 05/19/17 09:43 Dose: 1,500 mg Calcium Carbonate/Cholecalciferol (Os-Russ 500+D -) 2 tab PO DAILY [facility] Last Admin: 05/19/17 09:44 Dose: 2 tab Calcium Gluconate (Calcium Gluconate 10% -) 1,000 mg IVPB ONCE PRN Clotrimazole (Lotrisone Cream (Small Tube)) 1 applic TP BID [facility] Last Admin: 05/19/17 09:45 Dose: 1 applic Collagenase (Santyl -) 1 applic TP DAILY [facility] Last Admin: 05/19/17 09:45 Dose: 1 applic Diphenhydramine HCl (Benadryl Injection -) 25 mg IVPB ONCE PRN Last Admin: 05/14/17 15:50 Dose: 25 mg Docusate Sodium (Colace -) 100 mg PO BID [facility] Last Admin: 05/19/17 09:44 Dose: 100 mg Heparin Sodium (Porcine) (Heparin -) 5,000 unit SQ BID [facility] Last Admin: 05/19/17 09:44 Dose: 5,000 unit Hydralazine HCl (Apresoline -) 25 mg PO BID [facility] Last Admin: 05/19/17 09:44 Dose: 25 mg Piperacillin/Tazobactam/Dextrose (Zosyn 3.375gm Ivpb (Premix)) 50 mls @ 100 mls /hr IVPB Q8H-IV [facility] Last Admin: 05/19/17 17:14 Dose: 100 mls/hr Insulin Aspart (Novolog Vial Sliding Scale -) 1 vial SQ ACHS [facility] PRN Reason: Protocol Last Admin: 05/19/17 17:14 Dose: 6 units Insulin Detemir (Levemir Vial) 7 units SQ HS [facility] Levothyroxine Sodium (Synthroid -) 100 mcg PO DAILY@0700 [facility] Last Admin: 05/19/17 06:15 Dose: 100 mcg Pantoprazole Sodium (Protonix -) 40 mg PO DAILY [facility] Last Admin: 05/19/17 09:44 Dose: 40 mg Prednisone (Deltasone -) 60 mg PO DAILY [facility] Last Admin: 05/19/17 09:44 Dose: 60 mg Valacyclovir HCl (Valtrex -) 500 mg PO BID [facility] Last Admin: 05/19/17 09:43 Dose: 500 mg Last Vital Signs Temp Pulse Resp BP Pulse Ox 97.8 F 55 L 16 152/72 97 05/19/17 15:15 05/19/17 15:15 05/19/17 15:15 05/19/17 15:15 05/19/17 09:00 lungs clear heart reg abd soft ext no edema CBC, BMP 05/19/17 07:34 05/19/17 07:34 IMP- vasculitis getting plasma exchange Plan- ffp 6 units ordered for tomorrow's exchange
[2017-05-19] MEDS: INSULIN DETEMIR 100 UNITS/ML MDV SQ SCH (21:39)
[2017-05-20] MEDS: PIPERACILLIN/TAZOB 3.375 GM 50 ML IVPB SCH ×2 (01:26→12:24)
[2017-05-20] MEDS: LEVOTHYROXINE NA 100 MCG TABLET (FP) PO SCH (06:39)
[2017-05-20] MEDS: INSULIN SLIDING SCALE (NOVOLOG) 1 VIAL SQ SCH ×4 (06:39→21:44)
[2017-05-20] MEDS ORDERED: INSULIN (NOVOLOG) ASPART 100 UNITS/ML 10ML VIAL ONE (06:52)
[2017-05-20 07:10] LABS: BASOPHIL 0.3 % (0-2.0); EOSINOPHIL 0.5 % (0-4.5); MCHC 34.9 g/dl (32.0-36.0); MEAN CELL VOLUME 88.7 fl (80-96); MEAN PLT VOLUME 8.4 fl (7.5-11.1); NEUTROPHILS 74.2 % (42.8-82.8); PLATELET COUNT 188 K/MM3 (134-434); RDW 21.6 % (11.6-15.6); WHITE BLOOD COUNT 4.6 K/mm3 (4.0-10.0)
[2017-05-20 07:13] LABS: ALBUMIN 3.3 g/dl (3.4-5.0); ALK PHOS 49 U/L (45-117); ANION GAP 8 (8-16); BILIRUBIN,TOTAL 0.6 mg/dL (0.2-1.0); CALCIUM 8.1 mg/dL (8.5-10.1); CO2 28 mmol/L (21-32); CREATININE 1.8 mg/dL (0.55-1.02); GLUCOSE,RANDOM 53 mg/dL (74-106); SGOT/AST 9 U/L (15-37); SGPT/ALT 25 U/L (12-78); TOT PROT 5.2 g/dl (6.4-8.2)
[2017-05-20] MEDS ORDERED: PT OWN MED DRAWER 7, Y5N ONE ×3 (08:04→21:27)
--- NOTE | 2017-05-20 08:18 | PN ---
Physical Exam: SUBJECTIVE: Patient seen and examined OBJECTIVE: K. 3.2, Potassium 40meq ordered for session #4 of #7 of plasmapharesis today Vital Signs Period Temp Pulse Resp BP Sys/Horn Pulse Ox Last 24 Hr 97.4 F-97.8 F 52-59 16-18 148-153/63-84 97-97 GENERAL: The patient is awake, alert, and fully oriented, in no acute distress HEAD: Normal with no signs of trauma. EYES: PERRL, extraocular movements intact, sclera anicteric, conjunctiva clear. No ptosis. ENT: Ears normal, nares patent, oropharynx clear without exudates, moist mucous membranes. NECK: Trachea midline, full range of motion, supple. LUNGS: Breath sounds equal, clear to auscultation bilaterally, no wheezes, no crackles, no accessory muscle use. HEART: Regular rate and rhythm ABDOMEN: Soft, nontender, nondistended, normoactive bowel sounds, no guarding, no rebound, no hepatosplenomegaly, no masses. EXTREMITIES: 2+ pulses, warm, well-perfused, no edema. + right groin shiley catheter for plasmapheresis NEUROLOGICAL: Normal speech, gait not observed. PSYCH: Normal mood, normal affect. SKIN: Bilateral lower ext ulcers, not viewed, dressing intact Laboratory Results - last 24 hr 05/18/17 05/19/17 05/19/17 09:00 07:34 07:34 WBC 5.1 D RBC 3.44 L D Hgb 10.6 L D Hct 30.4 L D MCV 88.3 MCH 30.8 MCHC 34.9 RDW 21.8 H Plt Count 202 D MPV 8.6 Total Counted 100 Neutrophils % No Result Required. Neutrophils % (Manual) 71 Band Neuts % (Manual) 8 D Lymphocytes % No Result Required. Lymphocytes % (Manual) 17 D Monocytes % Monocytes % (Manual) 4 Eosinophils % Basophils % Platelet Estimate Adequate Polychromasia 1+ Anisocytosis 2+ Macrocytosis 2+ Sodium Potassium Chloride Carbon Dioxide Anion Gap BUN Creatinine Creat Clearance w eGFR POC Glucometer Random Glucose Calcium Total Bilirubin AST ALT Alkaline Phosphatase Total Protein Albumin Random Vancomycin 10.950 Blood Type O POSITIVE Antibody Screen Negative 05/19/17 05/19/17 05/19/17 07:34 11:53 16:56 WBC RBC Hgb Hct MCV MCH MCHC RDW Plt Count MPV Total Counted Neutrophils % Neutrophils % (Manual) Band Neuts % (Manual) Lymphocytes % Lymphocytes % (Manual) Monocytes % Monocytes % (Manual) Eosinophils % Basophils % Platelet Estimate Polychromasia Anisocytosis Macrocytosis Sodium 143 Potassium 3.6 Chloride 107 Carbon Dioxide 26 Anion Gap 10 BUN 33 H Creatinine 2.0 H Creat Clearance w eGFR 24.22 POC Glucometer 196 302 Random Glucose 82 D Calcium 8.0 L Total Bilirubin 1.0 D AST 15 ALT 23 D Alkaline Phosphatase 55 Total Protein 6.1 L Albumin 3.9 Random Vancomycin Blood Type Antibody Screen 05/19/17 05/20/17 05/20/17 21:36 06:10 06:10 WBC 4.6 RBC 3.09 L Hgb 9.6 L Hct 27.4 L MCV 88.7 MCH 31.0 MCHC 34.9 RDW 21.6 H Plt Count 188 MPV 8.4 Total Counted Neutrophils % 74.2 D Neutrophils % (Manual) Band Neuts % (Manual) Lymphocytes % 18.3 D Lymphocytes % (Manual) Monocytes % 6.7 D Monocytes % (Manual) Eosinophils % 0.5 Basophils % 0.3 Platelet Estimate Polychromasia Anisocytosis Macrocytosis Sodium 143 Potassium 3.2 L Chloride 107 Carbon Dioxide 28 Anion Gap 8 BUN 29 H Creatinine 1.8 H Creat Clearance w eGFR 27.36 POC Glucometer 253 Random Glucose 53 L D Calcium 8.1 L Total Bilirubin 0.6 D AST 9 L D ALT 25 Alkaline Phosphatase 49 Total Protein 5.2 L Albumin 3.3 L Random Vancomycin Blood Type Antibody Screen 05/20/17 06:39 WBC RBC Hgb Hct MCV MCH MCHC RDW Plt Count MPV Total Counted Neutrophils % Neutrophils % (Manual) Band Neuts % (Manual) Lymphocytes % Lymphocytes % (Manual) Monocytes % Monocytes % (Manual) Eosinophils % Basophils % Platelet Estimate Polychromasia Anisocytosis Macrocytosis Sodium Potassium Chloride Carbon Dioxide Anion Gap BUN Creatinine Creat Clearance w eGFR POC Glucometer 64 Random Glucose Calcium Total Bilirubin AST ALT Alkaline Phosphatase Total Protein Albumin Random Vancomycin Blood Type Antibody Screen Active Medications Generic Name Dose Route Start Last Admin Trade Name Freq PRN Reason Stop Dose Admin Atovaquone 1,500 mg 05/16/17 08:00 05/19/17 09:43 Mepron - PO 1,500 mg DAILY@0800 [facility] Administration Calcium Carbonate/Cholecalciferol 2 tab 05/14/17 20:00 05/19/17 09:44 Os-Russ 500+D - PO 2 tab DAILY [facility] Administration Calcium Gluconate 1,000 mg 05/14/17 16:00 Calcium Gluconate 10% - IVPB ONCE PRN Clotrimazole 1 applic 05/11/17 10:00 05/19/17 21:40 Lotrisone Cream (Small Tube) TP 1 applic BID [facility] Administration Collagenase 1 applic 05/12/17 17:00 05/19/17 09:45 Santyl - TP 1 applic DAILY [facility] Administration Diphenhydramine HCl 25 mg 05/14/17 15:40 05/14/17 15:50 Benadryl Injection - IVPB 25 mg ONCE PRN Administration Docusate Sodium 100 mg 05/11/17 22:00 05/19/17 21:39 Colace - PO Not Given BID [facility] Heparin Sodium (Porcine) 5,000 unit 05/17/17 22:00 05/19/17 21:39 Heparin - SQ 5,000 unit BID [facility] Administration Hydralazine HCl 25 mg 05/10/17 22:30 05/19/17 21:39 Apresoline - PO 25 mg BID [facility] Administration Piperacillin/Tazobactam/Dextrose 50 mls @ 100 mls/hr 05/15/17 14:30 05/20/17 01 :26 Zosyn 3.375gm Ivpb (Premix) IVPB 100 mls/hr Q8H-IV [facility] Administration Insulin Aspart 1 vial 05/11/17 07:00 05/20/17 06:39 Novolog Vial Sliding Scale - SQ Not Given ACHS [facility] Protocol Insulin Detemir 7 units 05/19/17 22:00 05/19/17 21:39 Levemir Vial SQ 7 units HS [facility] Administration Levothyroxine Sodium 100 mcg 05/11/17 07:00 05/20/17 06:39 Synthroid - PO 100 mcg DAILY@0700 [facility] Administration Pantoprazole Sodium 40 mg 05/11/17 13:00 05/19/17 09:44 Protonix - PO 40 mg DAILY [facility] Administration Potassium Chloride 40 meq 05/20/17 07:48 K-Dur - PO 05/20/17 07:49 ONCE ONE Prednisone 60 mg 05/13/17 10:00 05/19/17 09:44 Deltasone - PO 60 mg DAILY [facility] Administration Valacyclovir HCl 500 mg 05/11/17 10:00 05/19/17 21:39 Valtrex - PO 500 mg BID [facility] Administration ASSESSMENT/PLAN: Patient is an 77 year-old female with a significant past medical history of HTN , chronic venous stasis lower extremity ulcers, polymyaglia rheumatica, and hypothyroidism. She presents to the hospital on 05/10/17 with an isolated episode of hemoptysis. Patient was recently admitted here between 04/09 --> 04/29 for bilateral lower extremity cellulitis and MYRTLE. During last admission she was diagnosed with microscopic polyangitis and is currently on Rituxan and has received 3/4 doses. She was reported to have another episode of hemoptysis on 05/11/2017 and at this time she will be treated with 7 sessions of plasmapheresis which began on 05/14 2017 via right groin shiley. Imaging: Vascular study 05/14/2017 shows thrombosis involving the right mid and distal grater saphenous vein consistent with superficial venous thromboses, no evidence of DVT on right or left lower ext. 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 She was on Rituxan weekly and has received 3/4 doses On Prednisone 60mg daily as per rheumatology On dose 4 of 7 of plamapheresis (every other day) On Valtrex BID, Started Mepron Hematology: Anemia of chronic disease, acute on chronic S/P 2 unit or prbc on this admission hmg/hct low, stable Thrombocytopenia, resolvoed Hematology following, Renal: Chronic Kidney Disease, acute on chronic Monitor creatinine Renal following Vascular: Chronic LE venous stasis ulcers, followed by vascular Wound care daily Vascular study 05/14/2017 shows thrombosis involving the right mid and distal grater saphenous vein consistent with superficial venous thromboses, no evidence of DVT on right or left lower ext. : UA +3 Leuk, Est, Ecoli On Zosyn Endocrine: Hypothyroidism A/P: On home dose of Synthroid of 100mcgs Continue current dose Hyperglycemia, likely steroid induced/episode of hypoglycemia today A/p: Levemir daily, Novolog, BGMs Prophylaxis: DVT: Heparin TID GI: Protonix while on steriods Dispo: full code.
[2017-05-20] MEDS: ATOVAQUONE 750 MG/5 ML (UNIT-DOSE PACKAGING) PO SCH (08:30)
[2017-05-20] MEDS ORDERED: POTASSIUM CHLORIDE TABS 20 MEQ TABLET.ER (FP) PO ONE ×3 (08:45→21:31)
--- NOTE | 2017-05-20 10:38 | PN ---
Physical Exam: SUBJECTIVE: --NEPHROLOGY PROGRESS NOTE (w/DR. STONE)-- Patient seen and examined at bedside. Pt states she feels well overall but she has developed a rash w/o pruritus on her L neck, R flank, and back of neck. She noticed it after being given a medication yesterday via IV but does not remember which medication it was. She denies any CP, SOB, dysuria, blood in urine. Pt currently receiving plasmapheresis. OBJECTIVE: Vital Signs Temperature 98.2 F 05/20/17 09:47 Pulse Rate 64 05/20/17 09:47 Respiratory Rate 20 05/20/17 09:47 Blood Pressure 144/74 05/20/17 09:47 O2 Sat by Pulse Oximetry (%) 97 05/19/17 20:52 GENERAL: The patient is awake, alert, and fully oriented, in no acute distress. ENT: Ears normal, nares patent LUNGS: Breath sounds equal, clear to auscultation bilaterally HEART: Regular rate and rhythm, S1, S2. 2/6 systolic murmur best heard in aortic region. ABDOMEN: Soft, nontender, nondistended, normoactive bowel sounds EXTREMITIES: LLE with 2+ pitting edema. RLE with 1+ pitting edema. R femoral catheter in place. NEUROLOGICAL: Normal speech, gait not observed. PSYCH: Normal mood, normal affect. SKIN: Warm, dry. Rash on L of neck, back of neck, R flank. Laboratory Results - last 24 hr 05/18/17 05/19/17 05/19/17 09:00 07:34 11:53 WBC 5.1 D RBC 3.44 L D Hgb 10.6 L D Hct 30.4 L D MCV 88.3 MCH 30.8 MCHC 34.9 RDW 21.8 H Plt Count 202 D MPV 8.6 Total Counted 100 Neutrophils % Neutrophils % (Manual) 71 Band Neuts % (Manual) 8 D Lymphocytes % Lymphocytes % (Manual) 17 D Monocytes % Monocytes % (Manual) 4 Eosinophils % Basophils % Platelet Estimate Adequate Polychromasia 1+ Anisocytosis 2+ Macrocytosis 2+ Sodium Potassium Chloride Carbon Dioxide Anion Gap BUN Creatinine Creat Clearance w eGFR POC Glucometer 196 Random Glucose Calcium Total Bilirubin AST ALT Alkaline Phosphatase Total Protein Albumin Random Vancomycin Blood Type O POSITIVE Antibody Screen Negative 05/19/17 05/19/17 05/20/17 16:56 21:36 06:10 WBC RBC Hgb Hct MCV MCH MCHC RDW Plt Count MPV Total Counted Neutrophils % Neutrophils % (Manual) Band Neuts % (Manual) Lymphocytes % Lymphocytes % (Manual) Monocytes % Monocytes % (Manual) Eosinophils % Basophils % Platelet Estimate Polychromasia Anisocytosis Macrocytosis Sodium Potassium Chloride Carbon Dioxide Anion Gap BUN Creatinine Creat Clearance w eGFR POC Glucometer 302 253 Random Glucose Calcium Total Bilirubin AST ALT Alkaline Phosphatase Total Protein Albumin Random Vancomycin 16.249 Blood Type Antibody Screen 05/20/17 05/20/17 05/20/17 06:10 06:10 06:39 WBC 4.6 RBC 3.09 L Hgb 9.6 L Hct 27.4 L MCV 88.7 MCH 31.0 MCHC 34.9 RDW 21.6 H Plt Count 188 MPV 8.4 Total Counted Neutrophils % 74.2 D Neutrophils % (Manual) Band Neuts % (Manual) Lymphocytes % 18.3 D Lymphocytes % (Manual) Monocytes % 6.7 D Monocytes % (Manual) Eosinophils % 0.5 Basophils % 0.3 Platelet Estimate Polychromasia Anisocytosis Macrocytosis Sodium 143 Potassium 3.2 L Chloride 107 Carbon Dioxide 28 Anion Gap 8 BUN 29 H Creatinine 1.8 H Creat Clearance w eGFR 27.36 POC Glucometer 64 Random Glucose 53 L D Calcium 8.1 L Total Bilirubin 0.6 D AST 9 L D ALT 25 Alkaline Phosphatase 49 Total Protein 5.2 L Albumin 3.3 L Random Vancomycin Blood Type Antibody Screen Active Medications Generic Name Dose Route Start Last Admin Trade Name Freq PRN Reason Stop Dose Admin Albumin Human 87.5 gm 05/20/17 10:00 Plasbumin-5 - IVPB 05/26/17 10:01 Q2D MILES Atovaquone 1,500 mg 05/16/17 08:00 05/20/17 08:30 Mepron - PO 1,500 mg DAILY@0800 [facility] Administration Calcium Carbonate/Cholecalciferol 2 tab 05/14/17 20:00 05/19/17 09:44 Os-Russ 500+D - PO 2 tab DAILY [facility] Administration Calcium Gluconate 1,000 mg 05/14/17 16:00 Calcium Gluconate 10% - IVPB ONCE PRN Clotrimazole 1 applic 05/11/17 10:00 05/19/17 21:40 Lotrisone Cream (Small Tube) TP 1 applic BID [facility] Administration Collagenase 1 applic 05/12/17 17:00 05/19/17 09:45 Santyl - TP 1 applic DAILY [facility] Administration Diphenhydramine HCl 25 mg 05/14/17 15:40 05/14/17 15:50 Benadryl Injection - IVPB 25 mg ONCE PRN Administration Docusate Sodium 100 mg 05/11/17 22:00 05/19/17 21:39 Colace - PO Not Given BID [facility] Heparin Sodium (Porcine) 5,000 unit 05/17/17 22:00 05/19/17 21:39 Heparin - SQ 5,000 unit BID [facility] Administration Hydralazine HCl 25 mg 05/10/17 22:30 05/19/17 21:39 Apresoline - PO 25 mg BID [facility] Administration Piperacillin/Tazobactam/Dextrose 50 mls @ 100 mls/hr 05/15/17 14:30 05/20/17 01 :26 Zosyn 3.375gm Ivpb (Premix) IVPB 100 mls/hr Q8H-IV [facility] Administration Insulin Aspart 1 vial 05/11/17 07:00 05/20/17 06:39 Novolog Vial Sliding Scale - SQ Not Given ACHS [facility] Protocol Insulin Detemir 7 units 05/19/17 22:00 05/19/17 21:39 Levemir Vial SQ 7 units HS [facility] Administration Levothyroxine Sodium 100 mcg 05/11/17 07:00 05/20/17 06:39 Synthroid - PO 100 mcg DAILY@0700 [facility] Administration Pantoprazole Sodium 40 mg 05/11/17 13:00 05/19/17 09:44 Protonix - PO 40 mg DAILY [facility] Administration Prednisone 60 mg 05/13/17 10:00 05/19/17 09:44 Deltasone - PO 60 mg DAILY [facility] Administration Valacyclovir HCl 500 mg 05/11/17 10:00 05/19/17 21:39 Valtrex - PO 500 mg BID [facility] Administration ASSESSMENT/PLAN: 77 y/o F w/PMH of HTN, chronic venous statis ulcers of lower extremities, polymyalgia rheumatica, hypothyroidism admitted for hemoptysis secondary to recently diagnosed microscopic polyangitis. -Hemoptysis secondary to microscopic polyangitis -c/w prednisone 60 mg po qd -Dr. Futran, rheumatology, following -R femoral cath placed 05/14/17 -s/p 1 unit PRBC and 4th plasmapheresis today. Total 7 sessions needed. -c/w valtrex 500 mg po bid -Acute on chronic kidney disease -improving - Cr 1.8 today -likely secondary to microscopic polyangitis -c/w therapy as noted above -L buttocks lesion -Id on board, ID per Abx -Rash -on prednisone, monitor rash -may be secondary to meds -Chronic LE venous stasis ulcers -c/w wound care -Hypothyroidism -c/w synthroid -HTN -c/w hydralazine -DM -c/w current management -CHF -c/w current management Visit type - Emergency Visit Emergency Visit: Yes ED Registration Date: 05/12/17 Care time: The patient presented to the Emergency Department on the above date and was hospitalized for further evaluation of their emergent condition. - New Patient This patient is new to me today: No - Critical Care Critical Care patient: No
--- NOTE | 2017-05-20 11:05 | PN ---
Progress Note (short form) - Note Progress Note: PULMONARY Denies shortness of breath, cough or wheezing. No fevers or chills. Tolerating plasmapharesis. Last Vital Signs Temp Pulse Resp BP Pulse Ox 98.2 F 64 20 144/74 97 05/20/17 09:47 05/20/17 09:47 05/20/17 09:47 05/20/17 09:47 05/19/17 20:52 Gen: NAD at rest Heart: RRR Lung: decreased breath sounds at the bases Abd: soft, nontender Ext: no edema CBC, BMP 05/20/17 06:10 05/20/17 06:10 Active Medications Albumin Human (Plasbumin-5 -) 87.5 gm IVPB Q2D [facility] Stop: 05/26/17 10:01 Atovaquone (Mepron -) 1,500 mg PO DAILY@0800 [facility] Last Admin: 05/20/17 08:30 Dose: 1,500 mg Calcium Carbonate/Cholecalciferol (Os-Russ 500+D -) 2 tab PO DAILY [facility] Last Admin: 05/19/17 09:44 Dose: 2 tab Calcium Gluconate (Calcium Gluconate 10% -) 1,000 mg IVPB ONCE PRN Clotrimazole (Lotrisone Cream (Small Tube)) 1 applic TP BID [facility] Last Admin: 05/19/17 21:40 Dose: 1 applic Collagenase (Santyl -) 1 applic TP DAILY [facility] Last Admin: 05/19/17 09:45 Dose: 1 applic Diphenhydramine HCl (Benadryl Injection -) 25 mg IVPB ONCE PRN Last Admin: 05/14/17 15:50 Dose: 25 mg Docusate Sodium (Colace -) 100 mg PO BID [facility] Last Admin: 05/19/17 21:39 Dose: Not Given Heparin Sodium (Porcine) (Heparin -) 5,000 unit SQ BID [facility] Last Admin: 05/19/17 21:39 Dose: 5,000 unit Hydralazine HCl (Apresoline -) 25 mg PO BID [facility] Last Admin: 05/19/17 21:39 Dose: 25 mg Piperacillin/Tazobactam/Dextrose (Zosyn 3.375gm Ivpb (Premix)) 50 mls @ 100 mls /hr IVPB Q8H-IV [facility] Last Admin: 05/20/17 01:26 Dose: 100 mls/hr Insulin Aspart (Novolog Vial Sliding Scale -) 1 vial SQ ACHS [facility] PRN Reason: Protocol Last Admin: 05/20/17 06:39 Dose: Not Given Insulin Detemir (Levemir Vial) 7 units SQ HS [facility] Last Admin: 05/19/17 21:39 Dose: 7 units Levothyroxine Sodium (Synthroid -) 100 mcg PO DAILY@0700 [facility] Last Admin: 05/20/17 06:39 Dose: 100 mcg Pantoprazole Sodium (Protonix -) 40 mg PO DAILY [facility] Last Admin: 05/19/17 09:44 Dose: 40 mg Prednisone (Deltasone -) 60 mg PO DAILY [facility] Last Admin: 05/19/17 09:44 Dose: 60 mg Valacyclovir HCl (Valtrex -) 500 mg PO BID [facility] Last Admin: 05/19/17 21:39 Dose: 500 mg A/P Microscopic Polyangiitis Hemoptysis resolved Wound Infection UTI CKD HTN DM - antibiotics per ID - plasmapharesis day 4 today - prednsione - glucose control while on steroids - monitor hemoptysis - DVT prophylaxis
--- NOTE | 2017-05-20 12:02 | PN ---
Progress Note (short form) - Note Progress Note: vascular surgery: The plasmaphoresis nurse called because she wasn't able to aspirated blood from the catheter sites, althought they both flushed fine. Dressing removed and appears that the biopatch may have caused the catheter to kink a bit. The patch was removed and blood aspirated and flushed fine, and the patient was placed to the paslamaphoresis machine without difficulty. A clean sterile dressing was reapplied with cholorprep/iodoine ointment.
[2017-05-20] MEDS: CALCIUM 500MG/VIT-D 200 UNITS COMBO TABLET (FP) PO SCH (12:11)
[2017-05-20] MEDS: valACYclovir HCL 500 MG TABLET (FP) PO SCH ×2 (12:11→21:43)
[2017-05-20] MEDS: hydrALAZINE HCL 25 MG TABLET (FP) PO SCH ×2 (12:11→21:43)
[2017-05-20] MEDS: predniSONE 20 MG TABLET (UD) PO SCH (12:11)
[2017-05-20] MEDS: PANTOPRAZOLE 40 MG TABLET (FP) PO SCH (12:12)
[2017-05-20] MEDS: ALBUMIN HUMAN 5% 250 ML IV SOLUTION IVPB SCH (12:12)
[2017-05-20] MEDS: HEPARIN NA (PORCINE) 5,000 UNITS/ML 1ML VIAL SQ SCH ×2 (12:12→21:42)
[2017-05-20] MEDS: DOCUSATE SODIUM 100 MG CAPSULE (FP) PO SCH ×2 (12:12→21:43)
[2017-05-20] MEDS: COLLAGENASE CLOSTRIDIUM HIST. 30 GRAMS TUBE TP SCH (13:00)
--- NOTE | 2017-05-20 13:36 | PN ---
Progress Note (short form) - Note Progress Note: reports less buttock discomfort no hemoptysis reports rash on neck after iv antibiotics yesterday has worsened toady no pruritis Vital Signs Period Temp Pulse Resp BP Sys/Horn Pulse Ox Last 24 Hr 97.4 F-98.2 F 52-64 16-20 144-153/63-84 97 cor-rrr lungs clear abd soft, skin +rash macular on neck and abdomen- cannot turn as she is receiving plasmapharesis ext dressing intact CBC, BMP 05/20/17 06:10 05/20/17 06:10 vanco trough 16 a/p immunosuppressed patient on plasmapharesis and steroids-microscopic polyangiitis ct scan with phlegmon vancomycin based on levels, day #6 vanco/zosyn continue valtrex for hsv suppression mepron for pcp prophylaxis MRSA contact isolation ?drug rash- would d/c zosyn and observe buttock discomfort and induration appear to be resolved Problem List - Problems (1) Perirectal abscess Code(s): K61.1 - RECTAL ABSCESS (2) Microscopic polyangiitis Code(s): M31.7 - MICROSCOPIC POLYANGIITIS (3) MRSA (methicillin resistant staph aureus) culture positive Code(s): Z22.322 - CARRIER OR SUSPECTED CARRIER OF METHICILLIN RESIS STAPH
--- NOTE | 2017-05-20 13:41 | PN ---
Teaching Attending Note Name of Resident: Jorge Newton (Nephrology) ATTENDING PHYSICIAN STATEMENT I saw and evaluated the patient. I reviewed the resident's note and discussed the case with the resident. I agree with the resident's findings and plan as documented. Nephrology Pt seen and examined at bedside. She is getting plasma exchange. She denies hemoptysis. SHe complains of rash on her neck and back. Current Medications Generic Name Dose Route Start Last Admin Trade Name Freq PRN Reason Stop Dose Admin Albumin Human 87.5 gm 05/20/17 10:00 05/20/17 12:12 Plasbumin-5 - IVPB 05/26/17 10:01 87.5 gm Q2D MILES Administration Atovaquone 1,500 mg 05/16/17 08:00 05/20/17 08:30 Mepron - PO 1,500 mg DAILY@0800 [facility]ES Administration Calcium Carbonate/Cholecalciferol 2 tab 05/14/17 20:00 05/20/17 12:11 Os-Russ 500+D - PO 2 tab DAILY MILES Administration Calcium Gluconate 1,000 mg 05/14/17 16:00 Calcium Gluconate 10% - IVPB ONCE PRN Clotrimazole 1 applic 05/11/17 10:00 05/19/17 21:40 Lotrisone Cream (Small Tube) TP 1 applic BID MILES Administration Collagenase 1 applic 05/12/17 17:00 05/19/17 09:45 Santyl - TP 1 applic DAILY [facility]ES Administration Diphenhydramine HCl 25 mg 05/14/17 15:40 05/14/17 15:50 Benadryl Injection - IVPB 25 mg ONCE PRN Administration Docusate Sodium 100 mg 05/11/17 22:00 05/20/17 12:12 Colace - PO Not Given BID MILES Heparin Sodium (Porcine) 5,000 unit 05/17/17 22:00 05/20/17 12:12 Heparin - SQ 5,000 unit BID MILES Administration Hydralazine HCl 25 mg 05/10/17 22:30 05/20/17 12:11 Apresoline - PO 25 mg BID MILES Administration Insulin Aspart 1 vial 05/11/17 07:00 05/20/17 06:39 Novolog Vial Sliding Scale - SQ Not Given ACHS MILES Protocol Insulin Detemir 7 units 05/19/17 22:00 05/19/17 21:39 Levemir Vial SQ 7 units HS MILES Administration Levothyroxine Sodium 100 mcg 05/11/17 07:00 05/20/17 06:39 Synthroid - PO 100 mcg DAILY@0700 MILES Administration Pantoprazole Sodium 40 mg 05/11/17 13:00 05/20/17 12:12 Protonix - PO 40 mg DAILY MILES Administration Prednisone 60 mg 05/13/17 10:00 05/20/17 12:11 Deltasone - PO 60 mg DAILY MILES Administration Valacyclovir HCl 500 mg 05/11/17 10:00 05/20/17 12:11 Valtrex - PO 500 mg BID MILES Administration Last Vital Signs Temp Pulse Resp BP Pulse Ox 98.2 F 64 20 144/74 97 05/20/17 09:47 05/20/17 09:47 05/20/17 09:47 05/20/17 09:47 05/19/17 20:52 Laboratory Tests 05/20/17 05/20/17 06:10 06:10 Hgb 9.6 L Sodium 143 Potassium 3.2 L Creatinine 1.8 H Calcium 8.1 L cardio s1s2 pulm clear GI soft ext neg edema neuro awake and alert skin rash on neck Impression 1. MYRTLE 2. lower extremity ulcer 3. hypothyroid 4. HTN 5. polymyalgia 6. anemia 7. vasculitis microscopic polyangitis 8. thrombophlebitis 9. hemoptysis Plan - cont plasma exchange - repeat ua - monitor calcum - replace potassium - check mag - will need another dose of rituximab after plasma exchange course is complete - rheum follow up - will follow closely Problem List - Problems (1) Hemoptysis Code(s): R04.2 - HEMOPTYSIS (2) Acute kidney injury Code(s): N17.9 - ACUTE KIDNEY FAILURE, UNSPECIFIED
[2017-05-20] MEDS: CLOTRIMAZOLE/BETAMET DIPROP 15 GM TUBE TP SCH ×2 (16:45→21:43)
[2017-05-20 17:05] LABS: MCH 30.2 pg (25.7-33.7); MCHC 34.2 g/dl (32.0-36.0); MEAN CELL VOLUME 88.2 fl (80-96); MEAN PLT VOLUME 8.9 fl (7.5-11.1); PLATELET COUNT 180 K/MM3 (134-434); RDW 21.8 % (11.6-15.6)
[2017-05-20 17:43] LABS: ALBUMIN 4.3 g/dl (3.4-5.0); ANION GAP 10 (8-16); CALCIUM 7.9 mg/dL (8.5-10.1); CO2 27 mmol/L (21-32); GLUCOSE,RANDOM 224 mg/dL (74-106); MAGNESIUM 1.8 mg/dL (1.8-2.4)
[2017-05-20 17:47] LABS: ALK PHOS 57 U/L (45-117); CREATININE 1.7 mg/dL (0.55-1.02); SGOT/AST 19 U/L (15-37); SGPT/ALT 28 U/L (12-78); TOT PROT 6.5 g/dl (6.4-8.2)
[2017-05-20 17:53] LABS: ACTIVATED PTT 120.6 SECONDS (26.9-34.4)
[2017-05-20 18:09] LABS: ANISOCYTOSIS 2+; HYPOCHROMIA 1+; MACROCYTOSIS 2+; PLATELET ESTIMATE ADEQUATE (NORMAL)
[2017-05-20 18:22] LABS: INR 1.12 (0.82-1.09); PROTHROMBIN TIME (PATIENT) 12.7 SEC (9.98-11.88)
[2017-05-20] MEDS: INSULIN DETEMIR 100 UNITS/ML MDV SQ SCH (21:43)
--- NOTE | 2017-05-20 22:53 | PN ---
Progress Note (short form) - Note Progress Note: Patient seen and examined Feels well Denies any complaints s/p plasmapheresi# 4 Last Vital Signs Temp Pulse Resp BP Pulse Ox 98.7 F 67 16 142/68 97 05/20/17 19:00 05/20/17 23:00 05/20/17 23:00 05/20/17 23:00 05/20/17 21:00 Cor: RSR, No murmurs, No gallops Lungs: Clear to P&A Abd: Soft, Normal bowel sounds, No organomegaly Ext:No significant edema labs/meds reviewed A/P 77 y/o patient with microscopic polyangiitis, with hemoptysis, renal impairment , s/p renal biopsy---04/22/17 s/p pulse steroids, rituxan---3 doses --last 05/08 Now comes in with recurrent hemoptysis, last over weekend, and active urinary sediment also with new onset thrombocytopenia CT ca/p--b/l pulmonary ground glass opacities, gall stones #10/26 plasmaexchange with plasma and albumin. 3.5 l exchange. Monitor PT/PTT/ fibrinogen/CBC/Mg post pheresis and daily thrombocytopenia -- ?? ongoing pulmonary process? infection ? vasculitis--on rocephin ? meds HIT neg. improved Superficial vein thrombosis -- Rt. greater saphenous vein -- on heparin SC Noted on 04/26 and 05/14 No change between 04/26 and 05/14 On heparin SC
[2017-05-21] MEDS: INSULIN SLIDING SCALE (NOVOLOG) 1 VIAL SQ SCH ×4 (06:47→22:43)
[2017-05-21] MEDS: LEVOTHYROXINE NA 100 MCG TABLET (FP) PO SCH (06:47)
[2017-05-21] MEDS ORDERED: INSULIN (NOVOLOG) ASPART 100 UNITS/ML 10ML VIAL ONE ×3 (06:50→22:31)
[2017-05-21] MEDS ORDERED: PT OWN MED DRAWER 7, Y5N ONE ×2 (07:51→22:45)
[2017-05-21 07:59] LABS: MCH 30.6 pg (25.7-33.7); MCHC 34.7 g/dl (32.0-36.0); MEAN CELL VOLUME 88.2 fl (80-96); MEAN PLT VOLUME 8.8 fl (7.5-11.1); PLATELET COUNT 161 K/MM3 (134-434); RDW 21.8 % (11.6-15.6); WHITE BLOOD COUNT 6.5 K/mm3 (4.0-10.0)
[2017-05-21] MEDS: ATOVAQUONE 750 MG/5 ML (UNIT-DOSE PACKAGING) PO SCH (08:04)
[2017-05-21 08:17] LABS: ALBUMIN 3.3 g/dl (3.4-5.0); ANION GAP 9 (8-16); CALCIUM 7.3 mg/dL (8.5-10.1); CO2 28 mmol/L (21-32); CREATININE 1.7 mg/dL (0.55-1.02); GLUCOSE,RANDOM 87 mg/dL (74-106); MAGNESIUM 1.7 mg/dL (1.8-2.4); PHOSPHOROUS 2.6 mg/dL (2.5-4.9); SGOT/AST 9 U/L (15-37); SGPT/ALT 25 U/L (12-78)
[2017-05-21 08:19] LABS: ALK PHOS 46 U/L (45-117); BILIRUBIN,TOTAL 0.5 mg/dL (0.2-1.0); TOT PROT 5.2 g/dl (6.4-8.2)
[2017-05-21] MEDS ORDERED: MAGNESIUM SULF 50% (8.12 MEQ/2 ML-1 GM VIAL) IVPB ONE (09:00)
[2017-05-21 10:34] LABS: URINE APPEARANCE CLEAR; URINE BILIRUBIN NEGATIVE (NEGATIVE); URINE BLOOD 2+ (NEGATIVE); URINE COLOR YELLOW; URINE GLUCOSE (UA) 3+ (NEGATIVE); URINE KETONE NEGATIVE (NEGATIVE); URINE NITRITE NEGATIVE (NEGATIVE); URINE UROBILINOGEN NEGATIVE mg/dL (0.2-1.0)
[2017-05-21 10:35] LABS: URINE PROTEIN 3+ (NEGATIVE)
[2017-05-21 10:49] LABS: GRANULAR CASTS 4 /lpf; URINE BACTERIA MODERATE /hpf (NONE SEEN); URINE HYALINE CAST 4 /lpf; URINE RBC 7 /hpf (0-3); URINE WBC 1 /hpf (3-5); YEAST RARE
[2017-05-21] MEDS: predniSONE 20 MG TABLET (UD) PO SCH (10:51)
[2017-05-21] MEDS: PANTOPRAZOLE 40 MG TABLET (FP) PO SCH (10:51)
[2017-05-21] MEDS: valACYclovir HCL 500 MG TABLET (FP) PO SCH ×2 (10:51→22:49)
[2017-05-21] MEDS: DOCUSATE SODIUM 100 MG CAPSULE (FP) PO SCH ×2 (10:51→22:50)
[2017-05-21] MEDS: hydrALAZINE HCL 25 MG TABLET (FP) PO SCH ×2 (10:51→22:49)
[2017-05-21] MEDS: CALCIUM 500MG/VIT-D 200 UNITS COMBO TABLET (FP) PO SCH (10:51)
--- NOTE | 2017-05-21 10:51 | PN ---
Physical Exam: SUBJECTIVE: Patient seen and examined OBJECTIVE: Patient has a raised pink rash that covers most of her upper back, sides of bilateral breast Will give dose of Benadryl now, Hydrocortisone cream daily Last dose of Zosyn was on 05/20/2017, unsure if this rash may be related to a PCN allergy vs. other source No wheezing, stable on room air Mag 1.7, 2gm IV ordered x 1 Vital Signs Period Temp Pulse Resp BP Sys/Horn Pulse Ox Last 24 Hr 97.8 F-98.7 F 57-68 16-18 137-159/62-81 97 GENERAL: The patient is awake, alert, and fully oriented, in no acute distress HEAD: Normal with no signs of trauma. EYES: PERRL, extraocular movements intact, sclera anicteric, conjunctiva clear. No ptosis. ENT: Ears normal, nares patent, oropharynx clear without exudates, moist mucous membranes. NECK: Trachea midline, full range of motion, supple. LUNGS: Breath sounds equal, clear to auscultation bilaterally, no wheezes, no crackles, no accessory muscle use. HEART: Regular rate and rhythm ABDOMEN: Soft, nontender, nondistended, normoactive bowel sounds, no guarding, no rebound, no hepatosplenomegaly, no masses. EXTREMITIES: 2+ pulses, warm, well-perfused, no edema. + right groin shiley catheter for plasmapheresis NEUROLOGICAL: Normal speech, gait not observed. PSYCH: Normal mood, normal affect. SKIN: raised pink rash that covers most of her her upper back, sides of bilateral breast Laboratory Results - last 24 hr 05/18/17 05/20/17 05/20/17 09:00 14:45 16:00 WBC RBC Hgb Hct MCV MCH MCHC RDW Plt Count MPV Neutrophils % Lymphocytes % Hypochromia Platelet Estimate Anisocytosis Macrocytosis PT with INR 12.70 H INR 1.12 PTT (Actin FS) Fibrinogen Sodium Potassium Chloride Carbon Dioxide Anion Gap BUN Creatinine Creat Clearance w eGFR POC Glucometer 123 Random Glucose Calcium Phosphorus Magnesium Total Bilirubin AST ALT Alkaline Phosphatase Total Protein Albumin Urine Color Urine Appearance Urine pH Ur Specific V[place] Urine Protein Urine Glucose (UA) Urine Ketones Urine Blood Urine Nitrite Urine Bilirubin Urine Urobilinogen Urine RBC Urine WBC Ur Epithelial Cells Urine Bacteria Hyaline Casts Granular Casts Urine Yeast Blood Type O POSITIVE Antibody Screen Negative 05/20/17 05/20/17 05/20/17 16:16 16:16 16:16 WBC 6.0 D RBC 3.56 L Hgb 10.7 D Hct 31.4 L MCV 88.2 MCH 30.2 MCHC 34.2 RDW 21.8 H Plt Count 180 MPV 8.9 Neutrophils % Lymphocytes % Hypochromia 1+ Platelet Estimate Adequate Anisocytosis 2+ Macrocytosis 2+ PT with INR INR PTT (Actin FS) 120.6 H D Fibrinogen 210.0 L D Sodium 141 Potassium 3.3 L Chloride 104 Carbon Dioxide 27 Anion Gap 10 BUN 24 H Creatinine 1.7 H Creat Clearance w eGFR 29.22 POC Glucometer Random Glucose 224 H D Calcium 7.9 L Phosphorus Magnesium 1.8 Total Bilirubin 1.0 D AST 19 D ALT 28 Alkaline Phosphatase 57 Total Protein 6.5 D Albumin 4.3 D Urine Color Urine Appearance Urine pH Ur Specific [place] Urine Protein Urine Glucose (UA) Urine Ketones Urine Blood Urine Nitrite Urine Bilirubin Urine Urobilinogen Urine RBC Urine WBC Ur Epithelial Cells Urine Bacteria Hyaline Casts Granular Casts Urine Yeast Blood Type Antibody Screen 05/20/17 05/20/17 05/21/17 17:09 21:42 06:10 WBC RBC Hgb Hct MCV MCH MCHC RDW Plt Count MPV Neutrophils % Lymphocytes % Hypochromia Platelet Estimate Anisocytosis Macrocytosis PT with INR INR PTT (Actin FS) Fibrinogen Sodium 144 Potassium 3.5 Chloride 107 Carbon Dioxide 28 Anion Gap 9 BUN 29 H D Creatinine 1.7 H Creat Clearance w eGFR 29.22 POC Glucometer 341 378 Random Glucose 87 D Calcium 7.3 L Phosphorus 2.6 Magnesium 1.7 L Total Bilirubin 0.5 D AST 9 L D ALT 25 Alkaline Phosphatase 46 Total Protein 5.2 L Albumin 3.3 L D Urine Color Urine Appearance Urine pH Ur Specific [place] Urine Protein Urine Glucose (UA) Urine Ketones Urine Blood Urine Nitrite Urine Bilirubin Urine Urobilinogen Urine RBC Urine WBC Ur Epithelial Cells Urine Bacteria Hyaline Casts Granular Casts Urine Yeast Blood Type Antibody Screen 05/21/17 05/21/17 05/21/17 06:10 06:46 07:00 WBC 6.5 RBC 2.93 L Hgb 9.0 L D Hct 25.8 L D MCV 88.2 MCH 30.6 MCHC 34.7 RDW 21.8 H Plt Count 161 MPV 8.8 Neutrophils % No Result Required. Lymphocytes % No Result Required. Hypochromia Platelet Estimate Anisocytosis Macrocytosis PT with INR INR PTT (Actin FS) Fibrinogen Sodium Potassium Chloride Carbon Dioxide Anion Gap BUN Creatinine Creat Clearance w eGFR POC Glucometer 89 Random Glucose Calcium Phosphorus Magnesium Total Bilirubin AST ALT Alkaline Phosphatase Total Protein Albumin Urine Color Yellow Urine Appearance Clear Urine pH 5.0 Ur Specific [place] 1.017 Urine Protein 3+ H Urine Glucose (UA) 3+ H Urine Ketones Negative Urine Blood 2+ H Urine Nitrite Negative Urine Bilirubin Negative Urine Urobilinogen Negative Urine RBC 7 Urine WBC 1 Ur Epithelial Cells Rare Urine Bacteria Moderate Hyaline Casts 4 Granular Casts 4 Urine Yeast Rare Blood Type Antibody Screen Active Medications Generic Name Dose Route Start Last Admin Trade Name Freq PRN Reason Stop Dose Admin Albumin Human 87.5 gm 05/20/17 10:00 05/20/17 12:12 Plasbumin-5 - IVPB 05/26/17 10:01 87.5 gm Q2D MILES Administration Atovaquone 1,500 mg 05/16/17 08:00 05/21/17 08:04 Mepron - PO 1,500 mg DAILY@0800 MILES Administration Calcium Carbonate/Cholecalciferol 2 tab 05/14/17 20:00 05/20/17 12:11 Os-Russ 500+D - PO 2 tab DAILY MILES Administration Calcium Gluconate 1,000 mg 05/14/17 16:00 Calcium Gluconate 10% - IVPB ONCE PRN Clotrimazole 1 applic 05/11/17 10:00 05/20/17 21:43 Lotrisone Cream (Small Tube) TP Not Given BID MILES Collagenase 1 applic 05/12/17 17:00 05/20/17 13:00 Santyl - TP Not Given DAILY MILES Diphenhydramine HCl 25 mg 05/14/17 15:40 05/14/17 15:50 Benadryl Injection - IVPB 25 mg ONCE PRN Administration Docusate Sodium 100 mg 05/11/17 22:00 05/20/17 21:43 Colace - PO Not Given BID MILES Heparin Sodium (Porcine) 5,000 unit 05/17/17 22:00 05/20/17 21:42 Heparin - SQ 5,000 unit BID MILES Administration Hydralazine HCl 25 mg 05/10/17 22:30 05/20/17 21:43 Apresoline - PO 25 mg BID MILES Administration Insulin Aspart 1 vial 05/11/17 07:00 05/21/17 06:47 Novolog Vial Sliding Scale - SQ Not Given [facility] Protocol Insulin Detemir 7 units 05/19/17 22:00 05/20/17 21:43 Levemir Vial SQ 7 units HS MILES Administration Levothyroxine Sodium 100 mcg 05/11/17 07:00 05/21/17 06:47 Synthroid - PO 100 mcg DAILY@0700 MILES Administration Pantoprazole Sodium 40 mg 05/11/17 13:00 05/20/17 12:12 Protonix - PO 40 mg DAILY MILES Administration Prednisone 60 mg 05/13/17 10:00 05/20/17 12:11 Deltasone - PO 60 mg DAILY MILES Administration Valacyclovir HCl 500 mg 05/11/17 10:00 05/20/17 21:43 Valtrex - PO 500 mg BID MILES Administration ASSESSMENT/PLAN: Patient is an 77 year-old female with a significant past medical history of HTN , chronic venous stasis lower extremity ulcers, polymyaglia rheumatica, and hypothyroidism. She presents to the hospital on 05/10/17 with an isolated episode of hemoptysis. Patient was recently admitted here between 04/09 --> 04/29 for bilateral lower extremity cellulitis and MYRTLE. During last admission she was diagnosed with microscopic polyangitis and was getting outpatient Rituxan infusions and has received 3/4 doses. She was admitted on 05/11/2017 for hemoptysis. Her Rituxan therapy was stopped on admission an she will not be treated with 7 sessions of plasmapheresis for microscoic polyangitis (which began on 05/14 2017 via right groin shiley). Imaging: Vascular study 05/14/2017 shows thrombosis involving the right mid and distal grater saphenous vein consistent with superficial venous thromboses, no evidence of DVT on right or left lower ext. 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 She was on Rituxan weekly and has received 3/4 doses, she will now be getting plasma exchange which began on 05/14 Received 4 of 7 of plamapheresis (every other day), 5/7 dose due tomorrow Will likely need another dose of rituximab to complete course On Prednisone 60mg daily as per rheumatology On Valtrex BID, Started Mepron Hematology: Anemia of chronic disease, acute on chronic S/P 2 unit or prbc on this admission hmg/hct low, stable Thrombocytopenia, resolved Monitor labs Renal: Chronic Kidney Disease, acute on chronic Monitor creatinine Renal following Vascular: Chronic LE venous stasis ulcers, followed by vascular Wound care daily Vascular study 05/14/2017 shows thrombosis involving the right mid and distal grater saphenous vein consistent with superficial venous thromboses, no evidence of DVT on right or left lower ext. Heparin BID : UA +3 Leuk, Est, Ecoli Treated with Zosyn Endocrine: Hypothyroidism, chronic A/P: On home dose of Synthroid of 100mcgs Continue current dose Hyperglycemia, likely steroid induced A/p: Levemir daily, Novolog, BGMs F.E.N. Fluids: tolerating PO Electrolytes: Hypomag @1.7, given 2 gram IV x 1 Hypocalcemia corrected @ 7.9, on Calcium supplements BID Potassium, low normal 3.5, has been chronically low, will give one dose of K supplement tonight Prophylaxis: DVT: Heparin BID GI: Protonix while on steriods Dispo: full code. Visit type - Emergency Visit Emergency Visit: Yes ED Registration Date: 05/12/17 Care time: The patient presented to the Emergency Department on the above date and was hospitalized for further evaluation of their emergent condition. - New Patient This patient is new to me today: No - Critical Care Critical Care patient: No - Discharge Referral Referred to [facility] Med P.C.: No
[2017-05-21] MEDS: HEPARIN NA (PORCINE) 5,000 UNITS/ML 1ML VIAL SQ SCH ×2 (10:53→22:48)
[2017-05-21] MEDS ORDERED: HYDROCORTISONE 1% TOPICAL CREAM 30 GM TUBE TP PRN (10:58)
--- NOTE | 2017-05-21 11:16 | PN ---
Progress Note (short form) - Note Progress Note: PULMONARY Denies shortness of breath, cough or wheezing. No fevers or chills. Has pruritic maculopapular rash on neck, back, flanks. Last Vital Signs Temp Pulse Resp BP Pulse Ox 97.9 F 59 L 18 137/62 97 05/21/17 06:00 05/21/17 06:00 05/21/17 06:00 05/21/17 06:00 05/20/17 21:00 Gen: NAD at rest Heart: RRR Lung: decreased breath sounds at the bases Abd: soft, nontender Ext: no edema CBC, BMP 05/21/17 06:10 05/21/17 06:10 Active Medications Albumin Human (Plasbumin-5 -) 87.5 gm IVPB Q2D [facility] Stop: 05/26/17 10:01 Last Admin: 05/20/17 12:12 Dose: 87.5 gm Atovaquone (Mepron -) 1,500 mg PO DAILY@0800 [facility] Last Admin: 05/21/17 08:04 Dose: 1,500 mg Calcium Carbonate/Cholecalciferol (Os-Russ 500+D -) 2 tab PO DAILY [facility] Last Admin: 05/21/17 10:51 Dose: 2 tab Calcium Gluconate (Calcium Gluconate 10% -) 1,000 mg IVPB ONCE PRN Clotrimazole (Lotrisone Cream (Small Tube)) 1 applic TP BID [facility] Last Admin: 05/20/17 21:43 Dose: Not Given Collagenase (Santyl -) 1 applic TP DAILY [facility] Last Admin: 05/20/17 13:00 Dose: Not Given Diphenhydramine HCl (Benadryl Injection -) 25 mg IVPB ONCE PRN Last Admin: 05/14/17 15:50 Dose: 25 mg Diphenhydramine HCl (Benadryl -) 50 mg PO ONCE ONE Stop: 05/21/17 10:58 Docusate Sodium (Colace -) 100 mg PO BID [facility] Last Admin: 05/21/17 10:51 Dose: 100 mg Heparin Sodium (Porcine) (Heparin -) 5,000 unit SQ BID [facility] Last Admin: 05/21/17 10:53 Dose: 5,000 unit Hydralazine HCl (Apresoline -) 25 mg PO BID [facility] Last Admin: 05/21/17 10:51 Dose: 25 mg Hydrocortisone (Hytone 1% Cream -) 1 applic TP BID PRN PRN Reason: rash Insulin Aspart (Novolog Vial Sliding Scale -) 1 vial SQ ACHS MILES PRN Reason: Protocol Last Admin: 05/21/17 06:47 Dose: Not Given Insulin Detemir (Levemir Vial) 7 units SQ HS [facility] Last Admin: 05/20/17 21:43 Dose: 7 units Levothyroxine Sodium (Synthroid -) 100 mcg PO DAILY@0700 [facility] Last Admin: 05/21/17 06:47 Dose: 100 mcg Pantoprazole Sodium (Protonix -) 40 mg PO DAILY [facility] Last Admin: 05/21/17 10:51 Dose: 40 mg Prednisone (Deltasone -) 60 mg PO DAILY [facility] Last Admin: 05/21/17 10:51 Dose: 60 mg Valacyclovir HCl (Valtrex -) 500 mg PO BID [facility] Last Admin: 05/21/17 10:51 Dose: 500 mg A/P Drug Rash Microscopic Polyangiitis Hemoptysis resolved Wound Infection UTI CKD HTN DM - benadryl standing today - antibiotics per ID - plasmapharesis - continue prednisone - glucose control while on steroids - monitor hemoptysis - DVT prophylaxis
[2017-05-21] MEDS ORDERED: diphenhydrAMINE HCL 25 MG CAPSULE (FP) PO ONE (12:00)
[2017-05-21 12:55] LABS: MYELOCYTE 1 % (0-2); PLATELET ESTIMATE ADEQUATE (NORMAL); TOTAL CELLS COUNTED 100
[2017-05-21] MEDS ORDERED: VANCOMYCIN 1 GRAM (PRE-DOCKED) 1,000 MG/250 ML BAG IVPB ONE (13:46)
--- NOTE | 2017-05-21 13:46 | PN ---
Progress Note (short form) - Note Progress Note: no buttock discomfort no hemoptysis reports rash on now on flanks and back as well as abdomen has worsened today no pruritis still receiving plasmapharesis Vital Signs Period Temp Pulse Resp BP Sys/Horn Pulse Ox Last 24 Hr 97.8 F-98.7 F 57-68 16-18 137-159/62-81 97 cor-rrr lungs clear abd soft,nt ext leg ulcers unchanged thigh ulcer is now clean buttock induration almost resolved rash- macular on back, flanks and abdomen +thrush femerol catheter-no erythema or rash at site CBC, BMP 05/21/17 06:10 05/21/17 06:10 Microbiology 05/15/17 12:35 Blood - Peripheral Venous Blood Culture - Final NO GROWTH AFTER 5 DAYS INCUBATION 05/15/17 12:25 Blood - Peripheral Venous Blood Culture - Final NO GROWTH AFTER 5 DAYS INCUBATION 05/11/17 02:00 Blood - Peripheral Venous Blood Culture - Final NO GROWTH AFTER 5 DAYS INCUBATION 05/11/17 02:00 Blood - Peripheral Venous Blood Culture - Final NO GROWTH AFTER 5 DAYS INCUBATION 05/12/17 16:40 Wound Gram Stain - Final 05/12/17 16:40 Wound Wound Culture - Final Mr S Aureus Diphtheroid/Corynebacterium 05/12/17 20:45 Urine - Urine Clean Catch Urine Culture - Final Escherichia Coli Current Medications Albumin Human (Plasbumin-5 -) 87.5 gm IVPB Q2D [facility] Stop: 05/26/17 10:01 Last Admin: 05/20/17 12:12 Dose: 87.5 gm Ascorbic Acid (Vitamin C -) 500 mg PO BID [facility] Atovaquone (Mepron -) 1,500 mg PO DAILY@0800 [facility] Last Admin: 05/21/17 08:04 Dose: 1,500 mg Calcium Carbonate/Cholecalciferol (Os-Russ 500+D -) 2 tab PO DAILY [facility] Last Admin: 05/21/17 10:51 Dose: 2 tab Calcium Gluconate (Calcium Gluconate 10% -) 1,000 mg IVPB ONCE PRN Clotrimazole (Lotrisone Cream (Small Tube)) 1 applic TP BID [facility] Last Admin: 05/20/17 21:43 Dose: Not Given Collagenase (Santyl -) 1 applic TP DAILY [facility] Last Admin: 05/20/17 13:00 Dose: Not Given Diphenhydramine HCl (Benadryl Injection -) 50 mg IVPB Q6H-IV [facility]ES Docusate Sodium (Colace -) 100 mg PO BID [facility] Last Admin: 05/21/17 10:51 Dose: 100 mg Heparin Sodium (Porcine) (Heparin -) 5,000 unit SQ BID [facility] Last Admin: 05/21/17 10:53 Dose: 5,000 unit Hydralazine HCl (Apresoline -) 25 mg PO BID [facility] Last Admin: 05/21/17 10:51 Dose: 25 mg Insulin Aspart (Novolog Vial Sliding Scale -) 1 vial SQ ACHS [facility] PRN Reason: Protocol Last Admin: 05/21/17 12:43 Dose: Not Given Insulin Detemir (Levemir Vial) 7 units SQ HS [facility] Last Admin: 05/20/17 21:43 Dose: 7 units Levothyroxine Sodium (Synthroid -) 100 mcg PO DAILY@0700 [facility] Last Admin: 05/21/17 06:47 Dose: 100 mcg Nystatin (Nystatin Oral Suspension -) 500,000 units PO Q6HPO [facility] Pantoprazole Sodium (Protonix -) 40 mg PO DAILY [facility] Last Admin: 05/21/17 10:51 Dose: 40 mg Potassium Chloride (K-Dur -) 20 meq PO ONCE ONE Stop: 05/21/17 18:01 Prednisone (Deltasone -) 60 mg PO DAILY [facility] Last Admin: 05/21/17 10:51 Dose: 60 mg Valacyclovir HCl (Valtrex -) 500 mg PO BID [facility] Last Admin: 05/21/17 10:51 Dose: 500 mg Vancomycin HCl (Vancomycin (Pre-Docked)) 1,000 mg IVPB ONCE ONE PRN Reason: Protocol Stop: 05/21/17 13:47 a/p immunosuppressed patient on plasmapharesis and steroids-microscopic polyangiitis ct scan with phlegmon last dose vancomycin today, off zosyn due to rash -?betalactam continue valtrex for hsv suppression mepron for pcp prophylaxis MRSA contact isolation ?drug rash- add diflucan for thrush buttock discomfort and induration appear to be resolving Problem List - Problems (1) Perirectal abscess Code(s): K61.1 - RECTAL ABSCESS (2) Microscopic polyangiitis Code(s): M31.7 - MICROSCOPIC POLYANGIITIS (3) MRSA (methicillin resistant staph aureus) culture positive Code(s): Z22.322 - CARRIER OR SUSPECTED CARRIER OF METHICILLIN RESIS STAPH
[2017-05-21] MEDS ORDERED: VANCOMYCIN 1,000 MG in DEXTROSE 5%-WATER - 250 ML IVPB ONE (14:15)
[2017-05-21] MEDS: ASCORBIC ACID 500 MG TABLET (FP) PO SCH ×2 (15:04→22:49)
[2017-05-21] MEDS: NYSTATIN 500,000 UNITS/5 ML SUSPENSION PO SCH ×3 (15:04→23:25)
[2017-05-21] MEDS: COLLAGENASE CLOSTRIDIUM HIST. 30 GRAMS TUBE TP SCH (15:43)
[2017-05-21] MEDS: CLOTRIMAZOLE/BETAMET DIPROP 15 GM TUBE TP SCH ×2 (15:43→22:17)
[2017-05-21 16:48] LABS: URINE LEUK ESTERASE Negative (NEGATIVE)
[2017-05-21] MEDS: FLUCONAZOLE 100 MG TABLET (UD) PO SCH (17:21)
[2017-05-21] MEDS ORDERED: POTASSIUM CHLORIDE TABS 20 MEQ TABLET.ER (FP) PO ONE (18:00)
--- NOTE | 2017-05-21 18:19 | PN ---
Progress Note, Physician History of Present Illness: Pt seen and examined at bedside. She is awake and alert. She denies cough. She has a rash on her neck and back. - Current Medication List Current Medications: Active Medications Albumin Human (Plasbumin-5 -) 87.5 gm IVPB Q2D [facility] Stop: 05/26/17 10:01 Last Admin: 05/20/17 12:12 Dose: 87.5 gm Ascorbic Acid (Vitamin C -) 500 mg PO BID [facility] Last Admin: 05/21/17 15:04 Dose: 500 mg Atovaquone (Mepron -) 1,500 mg PO DAILY@0800 [facility] Last Admin: 05/21/17 08:04 Dose: 1,500 mg Calcium Carbonate/Cholecalciferol (Os-Russ 500+D -) 2 tab PO DAILY [facility] Last Admin: 05/21/17 10:51 Dose: 2 tab Calcium Gluconate (Calcium Gluconate 10% -) 1,000 mg IVPB ONCE PRN Clotrimazole (Lotrisone Cream (Small Tube)) 1 applic TP BID [facility] Last Admin: 05/21/17 15:43 Dose: Not Given Collagenase (Santyl -) 1 applic TP DAILY [facility] Last Admin: 05/21/17 15:43 Dose: Not Given Diphenhydramine HCl (Benadryl Injection -) 50 mg IVPB Q6H-IV [facility] Last Admin: 05/21/17 15:48 Dose: Not Given Docusate Sodium (Colace -) 100 mg PO BID [facility] Last Admin: 05/21/17 10:51 Dose: 100 mg Fluconazole (Diflucan -) 100 mg PO DAILY [facility] Last Admin: 05/21/17 17:21 Dose: 100 mg Heparin Sodium (Porcine) (Heparin -) 5,000 unit SQ BID [facility] Last Admin: 05/21/17 10:53 Dose: 5,000 unit Hydralazine HCl (Apresoline -) 25 mg PO BID [facility] Last Admin: 05/21/17 10:51 Dose: 25 mg Insulin Aspart (Novolog Vial Sliding Scale -) 1 vial SQ ACHS [facility] PRN Reason: Protocol Last Admin: 05/21/17 17:20 Dose: 4 units Insulin Detemir (Levemir Vial) 7 units SQ HS [facility] Last Admin: 05/20/17 21:43 Dose: 7 units Levothyroxine Sodium (Synthroid -) 100 mcg PO DAILY@0700 [facility] Last Admin: 05/21/17 06:47 Dose: 100 mcg Nystatin (Nystatin Oral Suspension -) 500,000 units PO Q6HPO [facility] Last Admin: 05/21/17 17:20 Dose: 500,000 units Pantoprazole Sodium (Protonix -) 40 mg PO DAILY [facility] Last Admin: 05/21/17 10:51 Dose: 40 mg Prednisone (Deltasone -) 60 mg PO DAILY [facility] Last Admin: 05/21/17 10:51 Dose: 60 mg Valacyclovir HCl (Valtrex -) 500 mg PO BID [facility] Last Admin: 05/21/17 10:51 Dose: 500 mg - Objective Vital Signs: Vital Signs Temperature 97.9 F 05/21/17 14:03 Pulse Rate 68 05/21/17 14:03 Respiratory Rate 17 05/21/17 14:03 Blood Pressure 151/70 05/21/17 14:03 O2 Sat by Pulse Oximetry (%) 97 05/20/17 21:00 Constitutional: Yes: Calm Eyes: Yes: Conjunctiva Clear HENT: Yes: Atraumatic Cardiovascular: Yes: S1, S2 Respiratory: Yes: CTA Bilaterally Gastrointestinal: Yes: Soft Genitourinary: Yes: WNL Musculoskeletal: Yes: WNL Edema: LLE: Trace, RLE: Trace Integumentary: Yes: Rash Neurological: Yes: Oriented Labs: CBC, BMP 05/21/17 06:10 05/21/17 06:10 INR, PTT INR 1.12 (0.82-1.09) 05/20/17 16:00 Fibrinogen 210.0 mg/dL (238-498) L D 05/20/17 16:16 Problem List - Problems (1) Hemoptysis Code(s): R04.2 - HEMOPTYSIS (2) Acute kidney injury Code(s): N17.9 - ACUTE KIDNEY FAILURE, UNSPECIFIED Assessment/Plan Current Medications Generic Name Dose Route Start Last Admin Trade Name Freq PRN Reason Stop Dose Admin Albumin Human 87.5 gm 05/20/17 10:00 05/20/17 12:12 Plasbumin-5 - IVPB 05/26/17 10:01 87.5 gm Q2D [facility] Administration Ascorbic Acid 500 mg 05/21/17 13:00 05/21/17 15:04 Vitamin C - PO 500 mg BID MILES Administration Atovaquone 1,500 mg 05/16/17 08:00 05/21/17 08:04 Mepron - PO 1,500 mg DAILY@0800 [facility] Administration Calcium Carbonate/Cholecalciferol 2 tab 05/14/17 20:00 05/21/17 10:51 Os-Russ 500+D - PO 2 tab DAILY MILES Administration Calcium Gluconate 1,000 mg 05/14/17 16:00 Calcium Gluconate 10% - IVPB ONCE PRN Clotrimazole 1 applic 05/11/17 10:00 05/21/17 15:43 Lotrisone Cream (Small Tube) TP Not Given BID MILES Collagenase 1 applic 05/12/17 17:00 05/21/17 15:43 Santyl - TP Not Given DAILY [facility] Diphenhydramine HCl 50 mg 05/21/17 15:00 05/21/17 15:48 Benadryl Injection - IVPB Not Given Q6H-IV MILES Docusate Sodium 100 mg 05/11/17 22:00 05/21/17 10:51 Colace - PO 100 mg BID MILES Administration Fluconazole 100 mg 05/21/17 15:30 05/21/17 17:21 Diflucan - PO 100 mg DAILY MILES Administration Heparin Sodium (Porcine) 5,000 unit 05/17/17 22:00 05/21/17 10:53 Heparin - SQ 5,000 unit BID MILES Administration Hydralazine HCl 25 mg 05/10/17 22:30 05/21/17 10:51 Apresoline - PO 25 mg BID MILES Administration Insulin Aspart 1 vial 05/11/17 07:00 05/21/17 17:20 Novolog Vial Sliding Scale - SQ 4 units ACHS [facility] Administration Protocol Insulin Detemir 7 units 05/19/17 22:00 05/20/17 21:43 Levemir Vial SQ 7 units HS MILES Administration Levothyroxine Sodium 100 mcg 05/11/17 07:00 05/21/17 06:47 Synthroid - PO 100 mcg DAILY@0700 [facility] Administration Nystatin 500,000 units 05/21/17 12:00 05/21/17 17:20 Nystatin Oral Suspension - PO 500,000 units Q6HPO MILES Administration Pantoprazole Sodium 40 mg 05/11/17 13:00 05/21/17 10:51 Protonix - PO 40 mg DAILY MILES Administration Prednisone 60 mg 05/13/17 10:00 05/21/17 10:51 Deltasone - PO 60 mg DAILY MIL[facility] Administration Valacyclovir HCl 500 mg 05/11/17 10:00 05/21/17 10:51 Valtrex - PO 500 mg BID MILES Administration Laboratory Tests 05/21/17 07:00 Urine Protein 3+ H Urine Blood 2+ H Impression 1. MYRTLE 2. lower extremity ulcer 3. hypothyroid 4. HTN 5. polymyalgia 6. anemia 7. vasculitis microscopic polyangitis 8. thrombophlebitis 9. hemoptysis Plan - renal function stabilizing - ua reviewed and is not improved - cont plasma exchange - monitor labs - discussed with ID - will discuss steroids with rheum Dr Hamilton
[2017-05-21] MEDS: INSULIN DETEMIR 100 UNITS/ML MDV SQ SCH (22:45)
[2017-05-22] MEDS: NYSTATIN 500,000 UNITS/5 ML SUSPENSION PO SCH ×3 (06:28→17:33)
[2017-05-22] MEDS: INSULIN SLIDING SCALE (NOVOLOG) 1 VIAL SQ SCH ×4 (06:28→22:39)
[2017-05-22] MEDS: LEVOTHYROXINE NA 100 MCG TABLET (FP) PO SCH (06:28)
[2017-05-22] MEDS: ATOVAQUONE 750 MG/5 ML (UNIT-DOSE PACKAGING) PO SCH (07:44)
[2017-05-22 08:02] LABS: MCHC 34.5 g/dl (32.0-36.0); MEAN PLT VOLUME 8.3 fl (7.5-11.1); PLATELET COUNT 161 K/MM3 (134-434); RDW 22.4 % (11.6-15.6)
[2017-05-22 08:35] LABS: ALBUMIN 3.4 g/dl (3.4-5.0); ANION GAP 7 (8-16); CO2 29 mmol/L (21-32); GLUCOSE,RANDOM 127 mg/dL (74-106); MAGNESIUM 2.2 mg/dL (1.8-2.4)
[2017-05-22 08:39] LABS: ALK PHOS 56 U/L (45-117); BILIRUBIN,TOTAL 0.4 mg/dL (0.2-1.0); CREATININE 1.7 mg/dL (0.55-1.02); SGOT/AST 8 U/L (15-37); SGPT/ALT 23 U/L (12-78)
[2017-05-22] MEDS ORDERED: SODIUM CHLORIDE NASAL SPRAY 44 ML BOTTLE NS PRN (09:24)
[2017-05-22 09:56] LABS: PLATELET ESTIMATE ADEQUATE (NORMAL); TOTAL CELLS COUNTED 100
[2017-05-22 09:57] LABS: METAMYELOCYTE 3 % (0-2)
--- NOTE | 2017-05-22 10:14 | PN ---
Progress Note (short form) - Note Progress Note: no buttock discomfort no hemoptysis reports rash on now on flanks and back as well as abdomen unchanged no pruritis scheduled for plasmapharesis today Vital Signs Period Temp Pulse Resp BP Sys/Horn Pulse Ox Last 24 Hr 97.5 F-98.3 F 60-77 17-20 146-165/70-81 98 no thrush cor-rrr lungs clear abd soft,nt ext no edema rash unchanged from yesterday- on back, flanks and abdomen no rash at catheter site no buttock induration legs wrapped CBC, BMP 05/22/17 06:48 05/22/17 06:48 Microbiology 05/15/17 12:35 Blood - Peripheral Venous Blood Culture - Final NO GROWTH AFTER 5 DAYS INCUBATION 05/15/17 12:25 Blood - Peripheral Venous Blood Culture - Final NO GROWTH AFTER 5 DAYS INCUBATION 05/11/17 02:00 Blood - Peripheral Venous Blood Culture - Final NO GROWTH AFTER 5 DAYS INCUBATION 05/11/17 02:00 Blood - Peripheral Venous Blood Culture - Final NO GROWTH AFTER 5 DAYS INCUBATION 05/12/17 16:40 Wound Gram Stain - Final 05/12/17 16:40 Wound Wound Culture - Final Mr S Aureus Diphtheroid/Corynebacterium 05/12/17 20:45 Urine - Urine Clean Catch Urine Culture - Final Escherichia Coli a/p immunosuppressed patient on plasmapharesis and steroids-microscopic polyangiitis ct scan with buttock phlegmon -clinically resolved-antibiotics d/ranulfo continue valtrex for hsv suppression mepron for pcp prophylaxis MRSA contact isolation ?drug rash- derm consult called by hematology on diflucan for thrush Problem List - Problems (1) Perirectal abscess Code(s): K61.1 - RECTAL ABSCESS (2) Microscopic polyangiitis Code(s): M31.7 - MICROSCOPIC POLYANGIITIS (3) MRSA (methicillin resistant staph aureus) culture positive Code(s): Z22.322 - CARRIER OR SUSPECTED CARRIER OF METHICILLIN RESIS STAPH
--- NOTE | 2017-05-22 10:50 | PN ---
Progress Note (short form) - Note Progress Note: Subjective: The patient was seen and examined at the bedside, she denies any hemoptysis. Plasmapharesis held today per hematology 2/2 rash Current Medications Generic Name Dose Route Start Last Admin Trade Name [place] PRN Reason Stop Dose Admin Albumin Human 87.5 gm 05/20/17 10:00 05/20/17 12:12 Plasbumin-5 - IVPB 05/26/17 10:01 87.5 gm Q2D MILES Administration Ascorbic Acid 500 mg 05/21/17 13:00 05/21/17 22:49 Vitamin C - PO 500 mg BID MIL[facility] Administration Atovaquone 1,500 mg 05/16/17 08:00 05/22/17 07:44 Mepron - PO 1,500 mg DAILY@0800 [facility] Administration Calcium Carbonate/Cholecalciferol 2 tab 05/14/17 20:00 05/21/17 10:51 Os-Russ 500+D - PO 2 tab DAILY [facility] Administration Calcium Gluconate 1,000 mg 05/14/17 16:00 Calcium Gluconate 10% - IVPB ONCE PRN Clotrimazole 1 applic 05/11/17 10:00 05/21/17 22:17 Lotrisone Cream (Small Tube) TP Not Given BID MILES Collagenase 1 applic 05/12/17 17:00 05/21/17 15:43 Santyl - TP Not Given DAILY MILES Diphenhydramine HCl 50 mg 05/21/17 15:00 05/22/17 03:01 Benadryl Injection - IVPB Not Given Q6H-IV MILES Docusate Sodium 100 mg 05/11/17 22:00 05/21/17 22:50 Colace - PO Not Given BID MILES Fluconazole 100 mg 05/21/17 15:30 05/21/17 17:21 Diflucan - PO 100 mg DAILY [facility] Administration Heparin Sodium (Porcine) 5,000 unit 05/17/17 22:00 05/21/17 22:48 Heparin - SQ 5,000 unit BID MILES Administration Hydralazine HCl 25 mg 05/10/17 22:30 05/21/17 22:49 Apresoline - PO 25 mg BID MILES Administration Insulin Aspart 1 vial 05/11/17 07:00 05/22/17 06:28 Novolog Vial Sliding Scale - SQ Not Given ACHS [facility] Protocol Insulin Detemir 7 units 05/19/17 22:00 05/21/17 22:45 Levemir Vial SQ 7 units HS MILES Administration Levothyroxine Sodium 100 mcg 05/11/17 07:00 05/22/17 06:28 Synthroid - PO 100 mcg DAILY@0700 [facility] Administration Nystatin 500,000 units 05/21/17 12:00 05/22/17 06:28 Nystatin Oral Suspension - PO 500,000 units Q6HPO [facility] Administration Pantoprazole Sodium 40 mg 05/11/17 13:00 05/21/17 10:51 Protonix - PO 40 mg DAILY MILES Administration Prednisone 60 mg 05/13/17 10:00 05/21/17 10:51 Deltasone - PO 60 mg DAILY [facility] Administration Sodium Chloride 2 spray 05/22/17 09:24 [place] Nasal [place] - NS BID PRN NASAL CONGESTION Valacyclovir HCl 500 mg 05/11/17 10:00 05/21/17 22:49 Valtrex - PO 500 mg BID MILES Administration Objective: Vital Signs Period Temp Pulse Resp BP Sys/Horn Pulse Ox Last 24 Hr 97.5 F-98.3 F 60-77 17-20 146-165/70-81 98 Physical Exam: General: NAD, A&Ox3 Lungs: CTA bilaterally Heart: RRR, S1S2 Abd: Soft, non-tender, non-distended. Normoactive bowel sounds Ext: Left femoral catheter in place, no erythema surrounding insertion site. Warm, well-perfused. 2+ DP/PT bilaterally Skin: Macular rash on back, flanks, and abdomen. +thrush CBCD WBC 7.0 K/mm3 (4.0-10.0) 05/22/17 06:48 RBC 2.87 M/mm3 (3.60-5.2) L 05/22/17 06:48 Hgb 8.9 GM/dL (10.7-15.3) L 05/22/17 06:48 Hct 25.8 % (32.4-45.2) L 05/22/17 06:48 MCV 90.0 fl (80-96) 05/22/17 06:48 MCHC 34.5 g/dl (32.0-36.0) 05/22/17 06:48 RDW 22.4 % (11.6-15.6) H 05/22/17 06:48 Plt Count 161 K/MM3 (134-434) 05/22/17 06:48 MPV 8.3 fl (7.5-11.1) 05/22/17 06:48 CMP Sodium 143 mmol/L (136-145) 05/22/17 06:48 Potassium 4.0 mmol/L (3.5-5.1) 05/22/17 06:48 Chloride 107 mmol/L (98-107) 05/22/17 06:48 Carbon Dioxide 29 mmol/L (21-32) 05/22/17 06:48 Anion Gap 7 (8-16) L 05/22/17 06:48 BUN 25 mg/dL (7-18) H 05/22/17 06:48 Creatinine 1.7 mg/dL (0.55-1.02) H 05/22/17 06:48 Creat Clearance w eGFR 29.22 (>60) 05/22/17 06:48 Random Glucose 127 mg/dL (74-106) H D 05/22/17 06:48 Calcium 8.0 mg/dL (8.5-10.1) L 05/22/17 06:48 Total Bilirubin 0.4 mg/dL (0.2-1.0) 05/22/17 06:48 AST 8 U/L (15-37) L 05/22/17 06:48 ALT 23 U/L (12-78) 05/22/17 06:48 Alkaline Phosphatase 56 U/L (45-117) D 05/22/17 06:48 Total Protein 5.0 g/dl (6.4-8.2) L 05/22/17 06:48 Albumin 3.4 g/dl (3.4-5.0) 05/22/17 06:48 Microbiology 05/15/17 12:35 Blood - Peripheral Venous Blood Culture - Final NO GROWTH AFTER 5 DAYS INCUBATION 05/15/17 12:25 Blood - Peripheral Venous Blood Culture - Final NO GROWTH AFTER 5 DAYS INCUBATION 05/11/17 02:00 Blood - Peripheral Venous Blood Culture - Final NO GROWTH AFTER 5 DAYS INCUBATION 05/11/17 02:00 Blood - Peripheral Venous Blood Culture - Final NO GROWTH AFTER 5 DAYS INCUBATION 05/12/17 16:40 Wound Gram Stain - Final 05/12/17 16:40 Wound Wound Culture - Final S Aureus Diphtheroid/Corynebacterium 05/12/17 20:45 Urine - Urine Clean Catch Urine Culture - Final Escherichia Coli Assessment: This is a 77 year old female with PMHx of HTN, chronic venous stasis lower extremity ulcers, polymyalgia rheumatica, hypothyroidism, recent diagnosis of microscopic polyangitis on 05/10, who presented to the ED with hemoptysis and was started on plamapheresis. Plan: 1) Microscopic polyangitis vasculitis - Plasma exchange held today per hematology - Following exchange, check PT, PTT, fibrinogen, Mg, phos levels and daily - Continue Prednisone 60mg po daily - Valtrex BID - Started mepron pcp ppx - Appreciate hematology consult 2) R buttock phlegmon - Abx discontinued as it appears to be clinically resolved 3) Left posterior thigh wound + MRSA - Zosyn discontinued after patient formed rash on 05/20 (f/u dermatology consult ) - Appreciate ID consult 4) Thrush - Continue Diflucan 5) UTI,Klebsiella - Zosyn discontinued / rash - Abx discontinued per ID 6) Acute on chronic anemia - Hgb stable - Transfusions: 1uprbc 05/14, 05/18 7) Thrombocytopenia - Resolved 8) CKD - Improving and stable at Cr 1.7 9) Hypothyroid - Synthroid daily 10) Hemoptysis - Resolved 11) HTN - Above goal - Increased Hydralazine to 25mg tid 12) DM - BGM ACHS - ISS ACHS - Change levemir 7 units hs 13) Prophylaxis - Heparin 5,000u sq bid - Protonix 40mg po daily 14) Left posterior thigh wound - Daily dressing change with packing Visit type - Emergency Visit Emergency Visit: Yes ED Registration Date: 05/12/17 Care time: The patient presented to the Emergency Department on the above date and was hospitalized for further evaluation of their emergent condition. - New Patient This patient is new to me today: Yes Date on this admission: 05/22/17 - Critical Care Critical Care patient: No
[2017-05-22] MEDS: ASCORBIC ACID 500 MG TABLET (FP) PO SCH ×2 (11:03→22:23)
[2017-05-22] MEDS: predniSONE 20 MG TABLET (UD) PO SCH (11:03)
[2017-05-22] MEDS: PANTOPRAZOLE 40 MG TABLET (FP) PO SCH (11:03)
[2017-05-22] MEDS: valACYclovir HCL 500 MG TABLET (FP) PO SCH ×2 (11:03→22:23)
[2017-05-22] MEDS: DOCUSATE SODIUM 100 MG CAPSULE (FP) PO SCH ×2 (11:03→22:23)
[2017-05-22] MEDS: CALCIUM 500MG/VIT-D 200 UNITS COMBO TABLET (FP) PO SCH (11:03)
[2017-05-22] MEDS: FLUCONAZOLE 100 MG TABLET (UD) PO SCH (11:04)
[2017-05-22] MEDS: COLLAGENASE CLOSTRIDIUM HIST. 30 GRAMS TUBE TP SCH (11:05)
[2017-05-22] MEDS: CLOTRIMAZOLE/BETAMET DIPROP 15 GM TUBE TP SCH ×2 (11:05→22:24)
[2017-05-22] MEDS: HEPARIN NA (PORCINE) 5,000 UNITS/ML 1ML VIAL SQ SCH ×2 (11:05→22:23)
[2017-05-22] MEDS: ALBUMIN HUMAN 5% 250 ML IV SOLUTION IVPB SCH (12:02)
--- NOTE | 2017-05-22 12:34 | PN ---
Physical Exam: SUBJECTIVE: --NEPHROLOGY PROGRESS NOTE (w/Dr. Hamilton)-- Patient seen and examined at bedside. No acute events noted overnight. Pt feels well overall. Concerned about not getting plasmapheresis today. Her rash has improved since discontinuing abx. OBJECTIVE: Vital Signs Temperature 98.3 F 05/22/17 06:00 Pulse Rate 68 05/22/17 06:00 Respiratory Rate 20 05/22/17 06:00 Blood Pressure 149/79 05/22/17 06:00 O2 Sat by Pulse Oximetry (%) 98 05/21/17 21:42 GENERAL: The patient is awake, alert, and fully oriented, in no acute distress. ENT: Ears normal, nares patent LUNGS: Breath sounds equal, clear to auscultation bilaterally HEART: Regular rate and rhythm, S1, S2. 2/6 systolic murmur best heard in aortic region. ABDOMEN: Soft, nontender, nondistended, normoactive bowel sounds EXTREMITIES:R femoral catheter in place. NEUROLOGICAL: Normal speech, gait not observed. PSYCH: Normal mood, normal affect. SKIN: Warm, dry. Rash now improved. Very minimal redness at neck at site of rash. Laboratory Results - last 24 hr 05/18/17 05/21/17 05/21/17 09:00 06:10 07:00 WBC 6.5 RBC 2.93 L Hgb 9.0 L D Hct 25.8 L D MCV 88.2 MCH 30.6 MCHC 34.7 RDW 21.8 H Plt Count 161 MPV 8.8 Total Counted 100 Neutrophils % Neutrophils % (Manual) 81 Lymphocytes % Lymphocytes % (Manual) 12 D Monocytes % (Manual) 6 Myelocytes % (Man) 1 Hypersegmented Neuts Hypochromia Toxic Granulation Dohle Bodies Platelet Estimate Adequate Polychromasia Poikilocytosis Basophilic Stippling Anisocytosis Microcytosis Macrocytosis Spherocytes Siderocytes Sickle Cells Target Cells Tear Drop Cells Ovalocytes Stomatocytes Helmet Cells [place] Bodies [place] Rings [place] Cells Acanthocytes (Spur) Rouleaux Fragmented RBCs Schistocytes Morphology Comment Sodium Potassium Chloride Carbon Dioxide Anion Gap BUN Creatinine Creat Clearance w eGFR POC Glucometer Random Glucose Calcium Magnesium Total Bilirubin AST ALT Alkaline Phosphatase Total Protein Albumin Urine Color Yellow Urine Appearance Clear Urine pH 5.0 Ur Specific [place] 1.017 Urine Protein 3+ H Urine Glucose (UA) 3+ H Urine Ketones Negative Urine Blood 2+ H Urine Nitrite Negative Urine Bilirubin Negative Urine Urobilinogen Negative Ur Leukocyte Esterase Negative Urine RBC 7 Urine WBC 1 Ur Epithelial Cells Rare Urine Bacteria Moderate Hyaline Casts 4 Granular Casts 4 Urine Yeast Rare Blood Type O POSITIVE Antibody Screen Negative Crossmatch See Detail 05/21/17 05/21/17 05/21/17 16:45 17:00 22:11 WBC RBC Hgb Hct MCV MCH MCHC RDW Plt Count MPV Total Counted Neutrophils % Neutrophils % (Manual) Lymphocytes % Lymphocytes % (Manual) Monocytes % (Manual) Myelocytes % (Man) Hypersegmented Neuts Hypochromia Toxic Granulation Dohle Bodies Platelet Estimate Polychromasia Poikilocytosis Basophilic Stippling Anisocytosis Microcytosis Macrocytosis Spherocytes Siderocytes Sickle Cells Target Cells Tear Drop Cells Ovalocytes Stomatocytes Helmet Cells [place] Bodies [place] Rings [place] Cells Acanthocytes (Spur) Rouleaux Fragmented RBCs Schistocytes Morphology Comment Sodium Potassium Chloride Carbon Dioxide Anion Gap BUN Creatinine Creat Clearance w eGFR POC Glucometer 282 304 Random Glucose Calcium Magnesium 2.4 D Total Bilirubin AST ALT Alkaline Phosphatase Total Protein Albumin Urine Color Urine Appearance Urine pH Ur Specific [place] Urine Protein Urine Glucose (UA) Urine Ketones Urine Blood Urine Nitrite Urine Bilirubin Urine Urobilinogen Ur Leukocyte Esterase Urine RBC Urine WBC Ur Epithelial Cells Urine Bacteria Hyaline Casts Granular Casts Urine Yeast Blood Type Antibody Screen Crossmatch 05/22/17 05/22/17 05/22/17 06:27 06:48 06:48 WBC 7.0 RBC 2.87 L Hgb 8.9 L Hct 25.8 L MCV 90.0 MCH 31.0 MCHC 34.5 RDW 22.4 H Plt Count 161 MPV 8.3 Total Counted 100 Neutrophils % No Result Required. Neutrophils % (Manual) 79 Lymphocytes % No Result Required. Lymphocytes % (Manual) 12 Monocytes % (Manual) 6 Myelocytes % (Man) Hypersegmented Neuts Cancelled Hypochromia Cancelled Toxic Granulation Cancelled Dohle Bodies Cancelled Platelet Estimate Adequate Polychromasia Cancelled Poikilocytosis Cancelled Basophilic Stippling Cancelled Anisocytosis Cancelled Microcytosis Cancelled Macrocytosis Cancelled Spherocytes Cancelled Siderocytes Cancelled Sickle Cells Cancelled Target Cells Cancelled Tear Drop Cells Cancelled Ovalocytes Cancelled Stomatocytes Cancelled Helmet Cells Cancelled [place] Bodies Cancelled [place] Rings Cancelled [place] Cells Cancelled Acanthocytes (Spur) Cancelled Rouleaux Cancelled Fragmented RBCs Cancelled Schistocytes Cancelled Morphology Comment Cancelled Sodium 143 Potassium 4.0 Chloride 107 Carbon Dioxide 29 Anion Gap 7 L BUN 25 H Creatinine 1.7 H Creat Clearance w eGFR 29.22 POC Glucometer 149 Random Glucose 127 H D Calcium 8.0 L Magnesium 2.2 Total Bilirubin 0.4 AST 8 L ALT 23 Alkaline Phosphatase 56 D Total Protein 5.0 L Albumin 3.4 Urine Color Urine Appearance Urine pH Ur Specific [place] Urine Protein Urine Glucose (UA) Urine Ketones Urine Blood Urine Nitrite Urine Bilirubin Urine Urobilinogen Ur Leukocyte Esterase Urine RBC Urine WBC Ur Epithelial Cells Urine Bacteria Hyaline Casts Granular Casts Urine Yeast Blood Type Antibody Screen Crossmatch Active Medications Generic Name Dose Route Start Last Admin Trade Name Freq PRN Reason Stop Dose Admin Albumin Human 87.5 gm 05/20/17 10:00 05/22/17 12:02 Plasbumin-5 - IVPB 05/26/17 10:01 Not Given Q2D MILES Ascorbic Acid 500 mg 05/21/17 13:00 05/22/17 11:03 Vitamin C - PO 500 mg BID MILES Administration Atovaquone 1,500 mg 05/16/17 08:00 05/22/17 07:44 Mepron - PO 1,500 mg DAILY@0800 MILES Administration Calcium Carbonate/Cholecalciferol 2 tab 05/14/17 20:00 05/22/17 11:03 Os-Russ 500+D - PO 2 tab DAILY MILES Administration Calcium Gluconate 1,000 mg 05/14/17 16:00 Calcium Gluconate 10% - IVPB ONCE PRN Clotrimazole 1 applic 05/11/17 10:00 05/22/17 11:05 Lotrisone Cream (Small Tube) TP 1 applic BID MILES Administration Collagenase 1 applic 05/12/17 17:00 05/22/17 11:05 Santyl - TP 1 applic DAILY MILES Administration Diphenhydramine HCl 50 mg 05/21/17 15:00 05/22/17 10:59 Benadryl Injection - IVPB Not Given Q6H-IV MILES Docusate Sodium 100 mg 05/11/17 22:00 05/22/17 11:03 Colace - PO 100 mg BID MILES Administration Fluconazole 100 mg 05/21/17 15:30 05/22/17 11:04 Diflucan - PO 100 mg DAILY MILES Administration Heparin Sodium (Porcine) 5,000 unit 05/17/17 22:00 05/22/17 11:05 Heparin - SQ 5,000 unit BID MILES Administration Hydralazine HCl 25 mg 05/22/17 14:00 Apresoline - PO TID MILES Insulin Aspart 1 vial 05/11/17 07:00 05/22/17 12:02 Novolog Vial Sliding Scale - SQ Not Given ACHS [facility] Protocol Insulin Detemir 7 units 05/19/17 22:00 05/21/17 22:45 Levemir Vial SQ 7 units HS MILES Administration Levothyroxine Sodium 100 mcg 05/11/17 07:00 05/22/17 06:28 Synthroid - PO 100 mcg DAILY@0700 MILES Administration Nystatin 500,000 units 05/21/17 12:00 05/22/17 06:28 Nystatin Oral Suspension - PO 500,000 units Q6HPO MILES Administration Pantoprazole Sodium 40 mg 05/11/17 13:00 05/22/17 11:03 Protonix - PO 40 mg DAILY MILES Administration Prednisone 60 mg 05/13/17 10:00 05/22/17 11:03 Deltasone - PO 60 mg DAILY MILES Administration Sodium Chloride 2 spray 05/22/17 09:24 [place] Nasal [place] - NS BID PRN NASAL CONGESTION Valacyclovir HCl 500 mg 05/11/17 10:00 05/22/17 11:03 Valtrex - PO 500 mg BID MILES Administration ASSESSMENT/PLAN: 77 y/o F w/PMH of HTN, chronic venous statis ulcers of lower extremities, polymyalgia rheumatica, hypothyroidism admitted for hemoptysis secondary to recently diagnosed microscopic polyangitis. -Hemoptysis secondary to microscopic polyangitis -c/w prednisone 40 mg po qd -Dr. Concepcion, rheumatology, following -R femoral cath placed 05/14/17 -s/p 1 unit PRBC this admission -5th session of plasmapheresis for today has been held by heme/onc for suspicion of rash secondary to plasmapheresis. Total 7 sessions needed. -c/w valtrex 500 mg po bid -now on atovaquone 1500 mg po qd for PCP prophylaxis -Acute on chronic kidney disease -improving - Cr 1.7 today -likely secondary to microscopic polyangitis -last UA still showing protein and blood in urine. RBC in urine now down to 7 compared to 61 on previous UA. -c/w therapy as noted above -Rash -improving -on prednisone, monitor rash -may be secondary to meds. -derm consulted by heme/onc -Chronic LE venous stasis ulcers -c/w wound care -Hypothyroidism -c/w synthroid -HTN -c/w hydralazine -DM -c/w current management -CHF -c/w current management Visit type - Emergency Visit Emergency Visit: Yes ED Registration Date: 05/12/17 Care time: The patient presented to the Emergency Department on the above date and was hospitalized for further evaluation of their emergent condition. - New Patient This patient is new to me today: No - Critical Care Critical Care patient: No
--- NOTE | 2017-05-22 13:21 | PN ---
Progress Note, Physician History of Present Illness: pulmonary alert,doing well,nad,-sob - Current Medication List Current Medications: Active Medications Albumin Human (Plasbumin-5 -) 87.5 gm IVPB Q2D [facility] Stop: 05/26/17 10:01 Last Admin: 05/22/17 12:02 Dose: Not Given Ascorbic Acid (Vitamin C -) 500 mg PO BID [facility] Last Admin: 05/22/17 11:03 Dose: 500 mg Atovaquone (Mepron -) 1,500 mg PO DAILY@0800 [facility] Last Admin: 05/22/17 07:44 Dose: 1,500 mg Calcium Carbonate/Cholecalciferol (Os-Russ 500+D -) 2 tab PO DAILY [facility] Last Admin: 05/22/17 11:03 Dose: 2 tab Calcium Gluconate (Calcium Gluconate 10% -) 1,000 mg IVPB ONCE PRN Clotrimazole (Lotrisone Cream (Small Tube)) 1 applic TP BID [facility] Last Admin: 05/22/17 11:05 Dose: 1 applic Collagenase (Santyl -) 1 applic TP DAILY [facility] Last Admin: 05/22/17 11:05 Dose: 1 applic Diphenhydramine HCl (Benadryl Injection -) 50 mg IVPB Q6H-IV [facility] Last Admin: 05/22/17 10:59 Dose: Not Given Docusate Sodium (Colace -) 100 mg PO BID [facility] Last Admin: 05/22/17 11:03 Dose: 100 mg Fluconazole (Diflucan -) 100 mg PO DAILY [facility] Last Admin: 05/22/17 11:04 Dose: 100 mg Heparin Sodium (Porcine) (Heparin -) 5,000 unit SQ BID [facility] Last Admin: 05/22/17 11:05 Dose: 5,000 unit Hydralazine HCl (Apresoline -) 25 mg PO TID [facility] Insulin Aspart (Novolog Vial Sliding Scale -) 1 vial SQ ACHS [facility] PRN Reason: Protocol Last Admin: 05/22/17 12:02 Dose: Not Given Insulin Detemir (Levemir Vial) 7 units SQ HS [facility] Last Admin: 05/21/17 22:45 Dose: 7 units Levothyroxine Sodium (Synthroid -) 100 mcg PO DAILY@0700 [facility] Last Admin: 05/22/17 06:28 Dose: 100 mcg Nystatin (Nystatin Oral Suspension -) 500,000 units PO Q6HPO [facility] Last Admin: 05/22/17 06:28 Dose: 500,000 units Pantoprazole Sodium (Protonix -) 40 mg PO DAILY [facility] Last Admin: 05/22/17 11:03 Dose: 40 mg Prednisone (Deltasone -) 60 mg PO DAILY [facility] Last Admin: 05/22/17 11:03 Dose: 60 mg Sodium Chloride ([place] Nasal [place] -) 2 spray NS BID PRN PRN Reason: NASAL CONGESTION Valacyclovir HCl (Valtrex -) 500 mg PO BID [facility] Last Admin: 05/22/17 11:03 Dose: 500 mg - Objective Vital Signs: Vital Signs Temperature 98.3 F 05/22/17 06:00 Pulse Rate 68 05/22/17 06:00 Respiratory Rate 20 05/22/17 06:00 Blood Pressure 149/79 05/22/17 06:00 O2 Sat by Pulse Oximetry (%) 98 05/21/17 21:42 Constitutional: Yes: Well Nourished, Calm Eyes: Yes: WNL HENT: Yes: WNL Neck: Yes: WNL Cardiovascular: Yes: Regular Rate and Rhythm, S1, S2 Respiratory: Yes: Diminished Gastrointestinal: Yes: Normal Bowel Sounds, Soft Extremities: Yes: WNL Edema: No Labs: CBC, BMP 05/22/17 06:48 05/22/17 06:48 INR, PTT INR 1.12 (0.82-1.09) 05/20/17 16:00 Fibrinogen 210.0 mg/dL (238-498) L D 05/20/17 16:16 Problem List - Problems (1) Microscopic polyangiitis Code(s): M31.7 - MICROSCOPIC POLYANGIITIS (2) Bilateral pulmonary infiltrates on chest x-ray Code(s): R91.8 - OTHER NONSPECIFIC ABNORMAL FINDING OF LUNG FIELD (3) Hypertension Code(s): I10 - ESSENTIAL (PRIMARY) HYPERTENSION (4) Hypothyroid Code(s): E03.9 - HYPOTHYROIDISM, UNSPECIFIED (5) Vasculitis Code(s): I77.6 - ARTERITIS, UNSPECIFIED (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
[2017-05-22] MEDS: hydrALAZINE HCL 25 MG TABLET (FP) PO SCH ×2 (14:41→22:23)
--- NOTE | 2017-05-22 15:09 | PN ---
Teaching Attending Note Name of Resident: Jorge Newton (Nephrology) ATTENDING PHYSICIAN STATEMENT I saw and evaluated the patient. I reviewed the resident's note and discussed the case with the resident. I agree with the resident's findings and plan as documented. Nephrology Pt seen and examined at bedside. She denies hemoptysis. Current Medications Generic Name Dose Route Start Last Admin Trade Name Freq PRN Reason Stop Dose Admin Albumin Human 87.5 gm 05/20/17 10:00 05/22/17 12:02 Plasbumin-5 - IVPB 05/26/17 10:01 Not Given Q2D [facility] Ascorbic Acid 500 mg 05/21/17 13:00 05/22/17 11:03 Vitamin C - PO 500 mg BID [facility] Administration Atovaquone 1,500 mg 05/16/17 08:00 05/22/17 07:44 Mepron - PO 1,500 mg DAILY@0800 [facility] Administration Calcium Carbonate/Cholecalciferol 2 tab 05/14/17 20:00 05/22/17 11:03 Os-Russ 500+D - PO 2 tab DAILY [facility] Administration Calcium Gluconate 1,000 mg 05/14/17 16:00 Calcium Gluconate 10% - IVPB ONCE PRN Clotrimazole 1 applic 05/11/17 10:00 05/22/17 11:05 Lotrisone Cream (Small Tube) TP 1 applic BID [facility] Administration Collagenase 1 applic 05/12/17 17:00 05/22/17 11:05 Santyl - TP 1 applic DAILY [facility] Administration Diphenhydramine HCl 50 mg 05/21/17 15:00 05/22/17 14:40 Benadryl Injection - IVPB Not Given Q6H-IV [facility] Docusate Sodium 100 mg 05/11/17 22:00 05/22/17 11:03 Colace - PO 100 mg BID [facility] Administration Fluconazole 100 mg 05/21/17 15:30 05/22/17 11:04 Diflucan - PO 100 mg DAILY [facility] Administration Heparin Sodium (Porcine) 5,000 unit 05/17/17 22:00 05/22/17 11:05 Heparin - SQ 5,000 unit BID [facility] Administration Hydralazine HCl 25 mg 05/22/17 14:00 05/22/17 14:41 Apresoline - PO 25 mg TID [facility] Administration Insulin Aspart 1 vial 05/11/17 07:00 05/22/17 12:02 Novolog Vial Sliding Scale - SQ Not Given ACHS [facility] Protocol Insulin Detemir 7 units 05/19/17 22:00 05/21/17 22:45 Levemir Vial SQ 7 units HS [facility] Administration Levothyroxine Sodium 100 mcg 05/11/17 07:00 05/22/17 06:28 Synthroid - PO 100 mcg DAILY@0700 [facility] Administration Nystatin 500,000 units 05/21/17 12:00 05/22/17 14:41 Nystatin Oral Suspension - PO 500,000 units Q6HPO [facility] Administration Pantoprazole Sodium 40 mg 05/11/17 13:00 05/22/17 11:03 Protonix - PO 40 mg DAILY [facility] Administration Prednisone 60 mg 05/13/17 10:00 05/22/17 11:03 Deltasone - PO 60 mg DAILY [facility] Administration Sodium Chloride 2 spray 05/22/17 09:24 [place] Nasal [place] - NS BID PRN NASAL CONGESTION Valacyclovir HCl 500 mg 05/11/17 10:00 05/22/17 11:03 Valtrex - PO 500 mg BID [facility] Administration Last Vital Signs Temp Pulse Resp BP Pulse Ox 98.1 F 68 20 142/76 98 05/22/17 14:15 05/22/17 14:15 05/22/17 14:15 05/22/17 14:15 05/21/17 21:42 Laboratory Tests 05/22/17 06:48 Creatinine 1.7 H cardio s1s2 pulm clear GI SOFT ext trace edema skin rash improved Impression 1. MYRTLE 2. lower extremity ulcer 3. hypothyroid 4. HTN 5. polymyalgia 6. anemia 7. vasculitis microscopic polyangitis 8. thrombophlebitis 9. hemoptysis 10. thrush Plan - plasma exchange held today - repeat labs in am - rash improving - rounds made at bedside Dr Hamilton Problem List - Problems (1) Hemoptysis Code(s): R04.2 - HEMOPTYSIS (2) Acute kidney injury Code(s): N17.9 - ACUTE KIDNEY FAILURE, UNSPECIFIED
[2017-05-22] MEDS ORDERED: INSULIN (NOVOLOG) ASPART 100 UNITS/ML 10ML VIAL ONE ×2 (17:02→22:32)
--- NOTE | 2017-05-22 20:48 | PN ---
Progress Note (short form) - Note Progress Note: Patient seen and examined Feels well Denies any complaints s/p plasmapheresi# 4/ drug rash ?? zosyn improving Last Vital Signs Temp Pulse Resp BP Pulse Ox 98.2 F 59 L 20 143/79 98 05/23/17 02:00 05/23/17 02:00 05/23/17 02:00 05/23/17 02:00 05/22/17 21:00 Cor: RSR, No murmurs, No gallops Lungs: Clear to P&A Abd: Soft, Normal bowel sounds, No organomegaly Ext:No significant edema labs/meds reviewed A/P 77 y/o patient with microscopic polyangiitis, with hemoptysis, renal impairment , s/p renal biopsy---04/22/17 s/p pulse steroids, rituxan---3 doses --last 05/08 Now comes in with recurrent hemoptysis, last over weekend, and active urinary sediment also with new onset thrombocytopenia CT ca/p--b/l pulmonary ground glass opacities, gall stones #4 plasmaexchange with plasma and albumin. 3.5 l exchange. Monitor PT/PTT/ fibrinogen/CBC/Mg post pheresis and daily thrombocytopenia -- ?? ongoing pulmonary process? infection ? vasculitis--on rocephin ? meds HIT neg. improved Superficial vein thrombosis -- Rt. greater saphenous vein -- on heparin SC Noted on 04/26 and 05/14 No change between 04/26 and 05/14 On heparin SC
[2017-05-22] MEDS ORDERED: PT OWN MED DRAWER 7, Y5N ONE (22:10)
[2017-05-22] MEDS: INSULIN DETEMIR 100 UNITS/ML MDV SQ SCH (22:22)
[2017-05-23] MEDS: NYSTATIN 500,000 UNITS/5 ML SUSPENSION PO SCH ×4 (00:08→17:22)
[2017-05-23] MEDS: LEVOTHYROXINE NA 100 MCG TABLET (FP) PO SCH (06:07)
[2017-05-23] MEDS: hydrALAZINE HCL 25 MG TABLET (FP) PO SCH ×3 (06:08→21:29)
[2017-05-23] MEDS: INSULIN SLIDING SCALE (NOVOLOG) 1 VIAL SQ SCH ×4 (06:08→21:30)
[2017-05-23] MEDS ORDERED: INSULIN (NOVOLOG) ASPART 100 UNITS/ML 10ML VIAL ONE ×3 (06:17→21:20)
[2017-05-23] MEDS ORDERED: PT OWN MED DRAWER 7, Y5N ONE ×3 (06:18→21:19)
[2017-05-23 07:33] LABS: MCH 30.9 pg (25.7-33.7); MCHC 34.3 g/dl (32.0-36.0); MEAN CELL VOLUME 90.2 fl (80-96); MEAN PLT VOLUME 8.3 fl (7.5-11.1); PLATELET COUNT 179 K/MM3 (134-434); RDW 22.4 % (11.6-15.6); WHITE BLOOD COUNT 8.5 K/mm3 (4.0-10.0)
[2017-05-23 07:53] LABS: INR 0.93 (0.82-1.09); PROTHROMBIN TIME (PATIENT) 10.5 SEC (9.98-11.88)
[2017-05-23 07:56] LABS: ACTIVATED PTT 32.7 SECONDS (26.9-34.4)
[2017-05-23 08:36] LABS: ALBUMIN 3.3 g/dl (3.4-5.0); ANION GAP 9 (8-16); CALCIUM 7.9 mg/dL (8.5-10.1); CO2 25 mmol/L (21-32); CREATININE 1.9 mg/dL (0.55-1.02); GLUCOSE,RANDOM 145 mg/dL (74-106); SGOT/AST 11 U/L (15-37); SGPT/ALT 26 U/L (12-78)
[2017-05-23 08:39] LABS: ALK PHOS 71 U/L (45-117); BILIRUBIN,TOTAL 0.4 mg/dL (0.2-1.0); TOT PROT 5.3 g/dl (6.4-8.2)
[2017-05-23 08:55] LABS: METAMYELOCYTE 1 % (0-2); MYELOCYTE 1 % (0-2); PLATELET ESTIMATE ADEQUATE (NORMAL); TOTAL CELLS COUNTED 100
[2017-05-23] MEDS: DOCUSATE SODIUM 100 MG CAPSULE (FP) PO SCH ×2 (09:57→21:29)
[2017-05-23] MEDS: HEPARIN NA (PORCINE) 5,000 UNITS/ML 1ML VIAL SQ SCH ×2 (09:57→21:28)
[2017-05-23] MEDS: predniSONE 20 MG TABLET (UD) PO SCH (09:58)
[2017-05-23] MEDS: FLUCONAZOLE 100 MG TABLET (UD) PO SCH (09:58)
[2017-05-23] MEDS: ASCORBIC ACID 500 MG TABLET (FP) PO SCH ×2 (09:58→21:29)
[2017-05-23] MEDS: PANTOPRAZOLE 40 MG TABLET (FP) PO SCH (09:58)
[2017-05-23] MEDS: ATOVAQUONE 750 MG/5 ML (UNIT-DOSE PACKAGING) PO SCH (09:59)
[2017-05-23] MEDS: CALCIUM 500MG/VIT-D 200 UNITS COMBO TABLET (FP) PO SCH (09:59)
[2017-05-23] MEDS: valACYclovir HCL 500 MG TABLET (FP) PO SCH ×2 (10:00→21:41)
[2017-05-23] MEDS: COLLAGENASE CLOSTRIDIUM HIST. 30 GRAMS TUBE TP SCH (10:05)
[2017-05-23] MEDS: CLOTRIMAZOLE/BETAMET DIPROP 15 GM TUBE TP SCH (10:05)
--- NOTE | 2017-05-23 10:28 | PN ---
Physical Exam: SUBJECTIVE: --(NEPHROLOGY PROGRESS NOTE w/Dr. Hamilton)-- Patient seen and examined at bedside. Pt states she feels like she has a cold today with a cough with some white sputum production. Denies fevers, chills, chest pain, N/V, loss of appetite, urinary issues including dysuria or hematuria , or any bowel changes. Overall, besides the cough, she feels well. OBJECTIVE: Vital Signs Temperature 98.5 F 05/23/17 06:00 Pulse Rate 60 05/23/17 06:00 Respiratory Rate 20 05/23/17 06:00 Blood Pressure 135/52 05/23/17 06:00 O2 Sat by Pulse Oximetry (%) 98 05/22/17 21:00 GENERAL: The patient is awake, alert, and fully oriented, in no acute distress. ENT: Ears normal, nares patent LUNGS: Diminished breath sounds at bases. HEART: Regular rate and rhythm, S1, S2. 2/6 systolic murmur best heard in aortic region. ABDOMEN: Soft, nontender, nondistended, normoactive bowel sounds EXTREMITIES: LLE with 2+ pitting edema. RLE with 1+ pitting edema. R femoral catheter in place. NEUROLOGICAL: Normal speech, gait not observed. PSYCH: Normal mood, normal affect. SKIN: Warm, dry. Laboratory Results - last 24 hr 05/22/17 05/22/17 05/22/17 11:56 16:59 22:16 WBC RBC Hgb Hct MCV MCH MCHC RDW Plt Count MPV Total Counted Neutrophils % Neutrophils % (Manual) Lymphocytes % Lymphocytes % (Manual) Monocytes % (Manual) Myelocytes % (Man) Hypersegmented Neuts Hypochromia Toxic Granulation Dohle Bodies Platelet Estimate Polychromasia Poikilocytosis Basophilic Stippling Anisocytosis Microcytosis Macrocytosis Spherocytes Siderocytes Sickle Cells Target Cells Tear Drop Cells Ovalocytes Stomatocytes Helmet Cells [place]ras[place] Bodies [place] Rings [place] Cells Acanthocytes (Spur) Rouleaux Fragmented RBCs Schistocytes Morphology Comment PT with INR INR PTT (Actin FS) Fibrinogen Sodium Potassium Chloride Carbon Dioxide Anion Gap BUN Creatinine Creat Clearance w eGFR POC Glucometer 109 314 228 Random Glucose Calcium Total Bilirubin AST ALT Alkaline Phosphatase Total Protein Albumin 05/23/17 05/23/17 05/23/17 06:06 06:30 06:30 WBC 8.5 RBC 2.84 L Hgb 8.8 L Hct 25.6 L MCV 90.2 MCH 30.9 MCHC 34.3 RDW 22.4 H Plt Count 179 MPV 8.3 Total Counted 100 Neutrophils % No Result Required. Neutrophils % (Manual) 81 Lymphocytes % No Result Required. Lymphocytes % (Manual) 13 Monocytes % (Manual) 4 Myelocytes % (Man) 1 Hypersegmented Neuts Cancelled Hypochromia Cancelled Toxic Granulation Cancelled Dohle Bodies Cancelled Platelet Estimate Adequate Polychromasia Cancelled Poikilocytosis Cancelled Basophilic Stippling Cancelled Anisocytosis Cancelled Microcytosis Cancelled Macrocytosis Cancelled Spherocytes Cancelled Siderocytes Cancelled Sickle Cells Cancelled Target Cells Cancelled Tear Drop Cells Cancelled Ovalocytes Cancelled Stomatocytes Cancelled Helmet Cells Cancelled [place] Bodies Cancelled Mcintosh Rings Cancelled Nickie Cells Cancelled Acanthocytes (Spur) Cancelled Rouleaux Cancelled Fragmented RBCs Cancelled Schistocytes Cancelled Morphology Comment Cancelled PT with INR INR PTT (Actin FS) Fibrinogen Sodium 140 Potassium 3.7 Chloride 106 Carbon Dioxide 25 Anion Gap 9 BUN 34 H D Creatinine 1.9 H Creat Clearance w eGFR 25.70 POC Glucometer 172 Random Glucose 145 H Calcium 7.9 L Total Bilirubin 0.4 AST 11 L D ALT 26 Alkaline Phosphatase 71 D Total Protein 5.3 L Albumin 3.3 L 05/23/17 06:30 WBC RBC Hgb Hct MCV MCH MCHC RDW Plt Count MPV Total Counted Neutrophils % Neutrophils % (Manual) Lymphocytes % Lymphocytes % (Manual) Monocytes % (Manual) Myelocytes % (Man) Hypersegmented Neuts Hypochromia Toxic Granulation Dohle Bodies Platelet Estimate Polychromasia Poikilocytosis Basophilic Stippling Anisocytosis Microcytosis Macrocytosis Spherocytes Siderocytes Sickle Cells Target Cells Tear Drop Cells Ovalocytes Stomatocytes Helmet Cells [place] Bodies [place] Rings [place] Cells Acanthocytes (Spur) Rouleaux Fragmented RBCs Schistocytes Morphology Comment PT with INR 10.50 INR 0.93 PTT (Actin FS) 32.7 D Fibrinogen 152.0 L D Sodium Potassium Chloride Carbon Dioxide Anion Gap BUN Creatinine Creat Clearance w eGFR POC Glucometer Random Glucose Calcium Total Bilirubin AST ALT Alkaline Phosphatase Total Protein Albumin IMAGING CXR: 05/23/17 - infiltrative changes have resolved. There is a weak inspiratory effort with resultant prominent heart and increased central markings. Active Medications Generic Name Dose Route Start Last Admin Trade Name [place] PRN Reason Stop Dose Admin Albumin Human 87.5 gm 05/23/17 10:00 Plasbumin-5 - IVPB 05/27/17 10:01 Q2D [facility] Ascorbic Acid 500 mg 05/21/17 13:00 05/23/17 09:58 Vitamin C - PO 500 mg BID [facility] Administration Atovaquone 1,500 mg 05/16/17 08:00 05/23/17 09:59 Mepron - PO 1,500 mg DAILY@0800 [facility] Administration Calcium Carbonate/Cholecalciferol 2 tab 05/14/17 20:00 05/23/17 09:59 Os-Russ 500+D - PO 2 tab DAILY [facility] Administration Calcium Gluconate 1,000 mg 05/14/17 16:00 Calcium Gluconate 10% - IVPB ONCE PRN Clotrimazole 1 applic 05/11/17 10:00 05/23/17 10:05 Lotrisone Cream (Small Tube) TP 1 applic BID [facility] Administration Collagenase 1 applic 05/12/17 17:00 05/23/17 10:05 Santyl - TP 1 applic DAILY [facility] Administration Diphenhydramine HCl 50 mg 05/23/17 10:15 Benadryl Injection - IVPB Q6H PRN FOR ITCHING Docusate Sodium 100 mg 05/11/17 22:00 05/23/17 09:57 Colace - PO 100 mg BID [facility] Administration Fluconazole 100 mg 05/21/17 15:30 05/23/17 09:58 Diflucan - PO 100 mg DAILY [facility] Administration Heparin Sodium (Porcine) 5,000 unit 05/17/17 22:00 05/23/17 09:57 Heparin - SQ 5,000 unit BID [facility] Administration Hydralazine HCl 25 mg 05/22/17 14:00 05/23/17 06:08 Apresoline - PO 25 mg TID [facility] Administration Insulin Aspart 1 vial 05/11/17 07:00 05/23/17 06:08 Novolog Vial Sliding Scale - SQ Not Given ACHS [facility] Protocol Insulin Detemir 7 units 05/19/17 22:00 05/22/17 22:22 Levemir Vial SQ 7 units HS [facility] Administration Levothyroxine Sodium 100 mcg 05/11/17 07:00 05/23/17 06:07 Synthroid - PO 100 mcg DAILY@0700 [facility] Administration Nystatin 500,000 units 05/21/17 12:00 05/23/17 06:08 Nystatin Oral Suspension - PO 500,000 units Q6HPO [facility] Administration Pantoprazole Sodium 40 mg 05/11/17 13:00 05/23/17 09:58 Protonix - PO 40 mg DAILY [facility] Administration Prednisone 60 mg 05/13/17 10:00 05/23/17 09:58 Deltasone - PO 60 mg DAILY [facility] Administration Sodium Chloride 2 spray 05/22/17 09:24 [place] Nasal [place] - NS BID PRN NASAL CONGESTION Valacyclovir HCl 500 mg 05/11/17 10:00 05/23/17 10:00 Valtrex - PO 500 mg BID [facility] Administration ASSESSMENT/PLAN: 77 y/o F w/PMH of HTN, chronic venous statis ulcers of lower extremities, polymyalgia rheumatica, hypothyroidism admitted for hemoptysis secondary to recently diagnosed microscopic polyangitis. -Hemoptysis secondary to microscopic polyangitis -c/w prednisone 60 mg po qd -Dr. Concepcion, rheumatology, following -R femoral cath placed 05/14/17 -s/p 1 unit PRBC this admission -5th session of plasmapheresis for today. Total 7 sessions needed. -c/w valtrex 500 mg po bid -now on atovaquone 1500 mg po qd for PCP prophylaxis -Acute on chronic kidney disease -improving - Cr 1.7 today -likely secondary to microscopic polyangitis -last UA still showing protein and blood in urine. RBC in urine now down to 7 compared to 61 on previous UA. -c/w therapy as noted above -Thrush -c/w nystatin -Rash -improved -on prednisone, monitor rash -may be secondary to meds. -derm consulted by heme/onc -Chronic LE venous stasis ulcers -c/w wound care -Hypothyroidism -c/w synthroid -HTN -c/w hydralazine -DM -c/w current management -CHF -c/w current management Visit type - Emergency Visit Emergency Visit: Yes ED Registration Date: 05/12/17 Care time: The patient presented to the Emergency Department on the above date and was hospitalized for further evaluation of their emergent condition. - New Patient This patient is new to me today: No - Critical Care Critical Care patient: No
--- NOTE | 2017-05-23 10:42 | CONSULT ---
Consult Consult Specialty:: Dermatology - History Source History Provided By: Patient - Past Medical History BAND SAW FILER: No: Alzheimer's Cardio/Vascular: Yes: HTN. No: AFIB Pulmonary: Yes: Pneumonia, Other (hemoptysis). No: Asthma Gastrointestinal: No: Ascites Hepatobiliary: No: Cirrhosis Renal/: Yes: Renal Inusuff. No: Hematuria Rheumatology: Yes: Vasculitis, Other (Polymyalgia rheumatica) Endocrine: Yes: Diabetes Mellitus, Hypothyroidism Dermatology: Yes: Other (open LE wounds) - Past Surgical History Additional Surgical History: kidney biopsy - Alcohol/Substance Use Hx Alcohol Use: No - Smoking History Smoking history: Never smoked Have you smoked in the past 12 months: No If you are a former smoker, when did you quit?: 30 years ago Home Medications - Allergies Allergies/Adverse Reactions: Allergies Allergy/AdvReac Type Severity Reaction Status Date / Time Sulfa (Sulfonamide Allergy Severe Verified 05/10/17 15:14 Antibiotics) piperacillin sodium Allergy Mild Rash Verified 05/21/17 16:16 [From Zosyn] tazobactam sodium Allergy Mild Rash Verified 05/21/17 16:16 [From Zosyn] - Home Medications Home Medications: Ambulatory Orders Levothyroxine [Synthroid -] 100 mcg PO DAILY 03/23/14 Hydralazine HCl [Apresoline -] 25 mg PO BID #60 tablet 04/25/17 Prednisone [Deltasone -] 40 mg PO BID #60 tablet 04/25/17 Aspirin Coated [Ecotrin -] 81 mg PO DAILY #30 tab 04/27/17 Alcohol Antiseptic Pads [Caretouch Alcohol Prep Pad] 1 each ACHS #1 box 04/29 Insulin (Levemir) [Levemir Flexpen -] 8 units SQ BID #1 pen 04/29/17 Insulin Aspart [Novolog Flexpen] 2 unit SQ ACHS #1 insuln.pen 04/29/17 Lancets/Blood Glucose Strips [Fora [id number] Strp-Lnct] 1 each ACHS #1 box 04/29/17 Miscellaneous Medical Supply [Glucometer Device] 1 each SQ ASDIR #1 kit Miscellaneous Medical Supply [Glucometer Test Strips #100] 1 each SQ ASDIR #1 box 04/29/17 [place], Safety [Easy Touch Fliplock Needle] 1 each [facility] #1 box 04/29/17 Valacyclovir HCl [Valtrex -] 500 mg PO BID #60 tablet 04/29/17 Family Disease History - Family Disease History Family Disease History: Diabetes: Mother, Brother Physical Exam Vital Signs: Vital Signs Temperature 98.5 F 05/23/17 06:00 Pulse Rate 60 05/23/17 06:00 Respiratory Rate 20 05/23/17 06:00 Blood Pressure 135/52 05/23/17 06:00 O2 Sat by Pulse Oximetry (%) 98 05/22/17 21:00 Labs: CBC, BMP 05/23/17 06:30 05/23/17 06:30 Assessment/Plan Patient examination macular mapular rash on chest ,back neck improving s/p Zosyn apply cortisone cream BID. will follow as needed. please reconsult if new lesions appear. Thank you.
--- NOTE | 2017-05-23 11:28 | PN ---
Progress Note (short form) - Note Progress Note: PULMONARY Rash improving. No fevers or chills. +cough with white sputum. No hemoptysis. Last Vital Signs Temp Pulse Resp BP Pulse Ox 98.5 F 60 20 135/52 98 05/23/17 06:00 05/23/17 06:00 05/23/17 06:00 05/23/17 06:00 05/22/17 21:00 Gen: NAD at rest Heart: RRR Lung: decreased breath sounds at the bases Abd: soft, nontender Ext: no edema CBC, BMP 05/23/17 06:30 05/23/17 06:30 Active Medications Albumin Human (Plasbumin-5 -) 87.5 gm IVPB Q2D [facility] Stop: 05/27/17 10:01 Ascorbic Acid (Vitamin C -) 500 mg PO BID [facility] Last Admin: 05/23/17 09:58 Dose: 500 mg Atovaquone (Mepron -) 1,500 mg PO DAILY@0800 [facility] Last Admin: 05/23/17 09:59 Dose: 1,500 mg Calcium Carbonate/Cholecalciferol (Os-Russ 500+D -) 2 tab PO DAILY [facility] Last Admin: 05/23/17 09:59 Dose: 2 tab Calcium Gluconate (Calcium Gluconate 10% -) 1,000 mg IVPB ONCE PRN Collagenase (Santyl -) 1 applic TP DAILY [facility] Last Admin: 05/23/17 10:05 Dose: 1 applic Diphenhydramine HCl (Benadryl Injection -) 50 mg IVPB Q6H PRN PRN Reason: FOR ITCHING Docusate Sodium (Colace -) 100 mg PO BID [facility] Last Admin: 05/23/17 09:57 Dose: 100 mg Fluconazole (Diflucan -) 100 mg PO DAILY [facility] Last Admin: 05/23/17 09:58 Dose: 100 mg Fluocinonide (Lidex 0.05% Ointment -) 1 applic TP DAILY [facility] Heparin Sodium (Porcine) (Heparin -) 5,000 unit SQ BID [facility] Last Admin: 05/23/17 09:57 Dose: 5,000 unit Hydralazine HCl (Apresoline -) 25 mg PO TID [facility] Last Admin: 05/23/17 06:08 Dose: 25 mg Insulin Aspart (Novolog Vial Sliding Scale -) 1 vial SQ ACHS [facility] PRN Reason: Protocol Last Admin: 05/23/17 06:08 Dose: Not Given Insulin Detemir (Levemir Vial) 7 units SQ HS [facility] Last Admin: 05/22/17 22:22 Dose: 7 units Levothyroxine Sodium (Synthroid -) 100 mcg PO DAILY@0700 [facility] Last Admin: 05/23/17 06:07 Dose: 100 mcg Nystatin (Nystatin Oral Suspension -) 500,000 units PO Q6HPO [facility] Last Admin: 05/23/17 06:08 Dose: 500,000 units Pantoprazole Sodium (Protonix -) 40 mg PO DAILY [facility] Last Admin: 05/23/17 09:58 Dose: 40 mg Prednisone (Deltasone -) 60 mg PO DAILY [facility] Last Admin: 05/23/17 09:58 Dose: 60 mg Sodium Chloride ([place] Nasal [place] -) 2 spray NS BID PRN PRN Reason: NASAL CONGESTION Valacyclovir HCl (Valtrex -) 500 mg PO BID [facility] Last Admin: 05/23/17 10:00 Dose: 500 mg A/P Drug Rash Microscopic Polyangiitis Hemoptysis resolved Wound Infection UTI CKD HTN DM - benadryl PRN - antibiotics per ID - plasmapharesis 11/25 today - continue prednisone - glucose control while on steroids - monitor for hemoptysis - DVT prophylaxis
--- NOTE | 2017-05-23 12:33 | PN ---
Teaching Attending Note Name of Resident: Jorge Newton (Nephrology) ATTENDING PHYSICIAN STATEMENT I saw and evaluated the patient. I reviewed the resident's note and discussed the case with the resident. I agree with the resident's findings and plan as documented. Nephrology Pt seen and examined at bedside. She is getting plasma exchange. cardio s1s2 pulm clear GI SOFT ext trace edema skin rash improved Impression 1. MYRTLE 2. lower extremity ulcer 3. hypothyroid 4. HTN 5. polymyalgia 6. anemia 7. vasculitis microscopic polyangitis 8. thrombophlebitis 9. hemoptysis 10. thrush Plan - plasma exchange today - repeat labs in am - rash improving, derm input noted - rounds made at bedside Problem List - Problems (1) Hemoptysis Code(s): R04.2 - HEMOPTYSIS (2) Acute kidney injury Code(s): N17.9 - ACUTE KIDNEY FAILURE, UNSPECIFIED
--- NOTE | 2017-05-23 14:45 | PN ---
Progress Note (short form) - Note Progress Note: Patient seen and examined feels a bit weak post procedure s/p plasmapheresi# 5/7 today. Last Vital Signs Temp Pulse Resp BP Pulse Ox 97.4 F L 75 18 150/80 98 05/23/17 13:59 05/23/17 13:59 05/23/17 13:59 05/23/17 13:59 05/23/17 09:00 CBC, BMP 05/23/17 06:30 05/23/17 06:30 Current Medications Generic Name Dose Route Start Last Admin Trade Name Freq PRN Reason Stop Dose Admin Albumin Human 87.5 gm 05/23/17 10:00 Plasbumin-5 - IVPB 05/27/17 10:01 Q2D [facility] Ascorbic Acid 500 mg 05/21/17 13:00 05/23/17 09:58 Vitamin C - PO 500 mg BID [facility] Administration Atovaquone 1,500 mg 05/16/17 08:00 05/23/17 09:59 Mepron - PO 1,500 mg DAILY@0800 [facility] Administration Calcium Carbonate/Cholecalciferol 2 tab 05/14/17 20:00 05/23/17 09:59 Os-Russ 500+D - PO 2 tab DAILY [facility] Administration Calcium Gluconate 1,000 mg 05/14/17 16:00 Calcium Gluconate 10% - IVPB ONCE PRN Collagenase 1 applic 05/12/17 17:00 05/23/17 10:05 Santyl - TP 1 applic DAILY [facility] Administration Diphenhydramine HCl 50 mg 05/23/17 10:15 Benadryl Injection - IVPB Q6H PRN FOR ITCHING Docusate Sodium 100 mg 05/11/17 22:00 05/23/17 09:57 Colace - PO 100 mg BID [facility] Administration Fluconazole 100 mg 05/21/17 15:30 05/23/17 09:58 Diflucan - PO 100 mg DAILY [facility] Administration Fluocinonide 1 applic 05/23/17 12:00 Lidex 0.05% Ointment - TP DAILY [facility] Heparin Sodium (Porcine) 5,000 unit 05/17/17 22:00 05/23/17 09:57 Heparin - SQ 5,000 unit BID [facility] Administration Hydralazine HCl 25 mg 05/22/17 14:00 05/23/17 06:08 Apresoline - PO 25 mg TID [facility] Administration Insulin Aspart 1 vial 05/11/17 07:00 05/23/17 13:07 Novolog Vial Sliding Scale - SQ Not Given ACHS [facility] Protocol Insulin Detemir 7 units 05/19/17 22:00 05/22/17 22:22 Levemir Vial SQ 7 units HS [facility] Administration Levothyroxine Sodium 100 mcg 05/11/17 07:00 05/23/17 06:07 Synthroid - PO 100 mcg DAILY@0700 [facility] Administration Nystatin 500,000 units 05/21/17 12:00 05/23/17 06:08 Nystatin Oral Suspension - PO 500,000 units Q6HPO [facility] Administration Pantoprazole Sodium 40 mg 05/11/17 13:00 05/23/17 09:58 Protonix - PO 40 mg DAILY [facility] Administration Prednisone 60 mg 05/13/17 10:00 05/23/17 09:58 Deltasone - PO 60 mg DAILY [facility] Administration Sodium Chloride 2 spray 05/22/17 09:24 [place] Nasal [place] - NS BID PRN NASAL CONGESTION Valacyclovir HCl 500 mg 05/11/17 10:00 05/23/17 10:00 Valtrex - PO 500 mg BID [facility] Administration Cor: RSR, No murmurs, No gallops Lungs: Clear to P&A Abd: Soft, Normal bowel sounds, No organomegaly Ext:No significant edema A/P 77 y/o patient with microscopic polyangiitis, with hemoptysis, renal impairment , s/p renal biopsy---04/22/17 s/p pulse steroids, rituxan---3 doses --last 05/08 Now comes in with recurrent hemoptysis, last over weekend, and active urinary sediment #5/7 plasmaexchange with plasma and albumin. 3.5 l exchange. Monitor PT/PTT/ fibrinogen/CBC/Mg post pheresis and daily Superficial vein thrombosis -- Rt. greater saphenous vein -- on heparin SC Noted on 04/26 and 05/14 No change between 04/26 and 05/14 On heparin SC will be continued
[2017-05-23] MEDS: FLUOCINONIDE 0.05% TOP OINT (15 GM TUBE) TP SCH (15:33)
[2017-05-23 15:50] LABS: MCH 30.7 pg (25.7-33.7); MEAN CELL VOLUME 90.1 fl (80-96); MEAN PLT VOLUME 8.6 fl (7.5-11.1); PLATELET COUNT 172 K/MM3 (134-434); WHITE BLOOD COUNT 10.5 K/mm3 (4.0-10.0)
[2017-05-23 16:20] LABS: ALK PHOS 71 U/L (45-117); ANION GAP 13 (8-16); BILIRUBIN,TOTAL 0.6 mg/dL (0.2-1.0); CO2 23 mmol/L (21-32); CREATININE 1.9 mg/dL (0.55-1.02); GLUCOSE,RANDOM 255 mg/dL (74-106); MAGNESIUM 2.1 mg/dL (1.8-2.4); SGOT/AST 17 U/L (15-37); SGPT/ALT 24 U/L (12-78); TOT PROT 6.1 g/dl (6.4-8.2)
[2017-05-23 16:27] LABS: INR 1.02 (0.82-1.09); PROTHROMBIN TIME (PATIENT) 11.5 SEC (9.98-11.88)
[2017-05-23 16:41] LABS: ACTIVATED PTT 32.6 SECONDS (26.9-34.4)
[2017-05-23] MEDS: INSULIN DETEMIR 100 UNITS/ML MDV SQ SCH (21:28)
[2017-05-24] MEDS: NYSTATIN 500,000 UNITS/5 ML SUSPENSION PO SCH ×4 (00:15→17:38)
[2017-05-24] MEDS: hydrALAZINE HCL 25 MG TABLET (FP) PO SCH ×3 (06:21→22:20)
[2017-05-24] MEDS: LEVOTHYROXINE NA 100 MCG TABLET (FP) PO SCH (06:21)
[2017-05-24] MEDS: INSULIN SLIDING SCALE (NOVOLOG) 1 VIAL SQ SCH ×4 (06:21→22:20)
[2017-05-24] MEDS: ATOVAQUONE 750 MG/5 ML (UNIT-DOSE PACKAGING) PO SCH (08:27)
[2017-05-24 08:38] LABS: MCHC 34.5 g/dl (32.0-36.0); MEAN CELL VOLUME 89.8 fl (80-96); MEAN PLT VOLUME 8.4 fl (7.5-11.1); PLATELET COUNT 205 K/MM3 (134-434); RDW 23.6 % (11.6-15.6); WHITE BLOOD COUNT 10.5 K/mm3 (4.0-10.0)
[2017-05-24 09:17] LABS: ALK PHOS 57 U/L (45-117); ANION GAP 8 (8-16); BILIRUBIN,TOTAL 0.5 mg/dL (0.2-1.0); CALCIUM 8.1 mg/dL (8.5-10.1); CO2 28 mmol/L (21-32); CREATININE 1.8 mg/dL (0.55-1.02); GLUCOSE,RANDOM 83 mg/dL (74-106); SGOT/AST 11 U/L (15-37); SGPT/ALT 27 U/L (12-78); TOT PROT 6.1 g/dl (6.4-8.2)
[2017-05-24 09:24] LABS: INR 0.91 (0.82-1.09); PROTHROMBIN TIME (PATIENT) 10.3 SEC (9.98-11.88)
[2017-05-24] MEDS: PANTOPRAZOLE 40 MG TABLET (FP) PO SCH (10:25)
[2017-05-24] MEDS: CALCIUM 500MG/VIT-D 200 UNITS COMBO TABLET (FP) PO SCH (10:25)
[2017-05-24] MEDS: ASCORBIC ACID 500 MG TABLET (FP) PO SCH ×2 (10:25→22:19)
[2017-05-24] MEDS: FLUCONAZOLE 100 MG TABLET (UD) PO SCH (10:25)
[2017-05-24] MEDS: HEPARIN NA (PORCINE) 5,000 UNITS/ML 1ML VIAL SQ SCH ×3 (10:25→22:24)
[2017-05-24] MEDS: predniSONE 20 MG TABLET (UD) PO SCH (10:25)
[2017-05-24] MEDS: DOCUSATE SODIUM 100 MG CAPSULE (FP) PO SCH ×2 (10:26→22:19)
[2017-05-24] MEDS: FLUOCINONIDE 0.05% TOP OINT (15 GM TUBE) TP SCH (10:26)
[2017-05-24] MEDS: COLLAGENASE CLOSTRIDIUM HIST. 30 GRAMS TUBE TP SCH (10:27)
[2017-05-24] MEDS: valACYclovir HCL 500 MG TABLET (FP) PO SCH ×2 (10:27→22:20)
--- NOTE | 2017-05-24 11:56 | PN ---
Progress Note (short form) - Note Progress Note: no buttock discomfort no hemoptysis reports rash improved no pruritis Vital Signs Period Temp Pulse Resp BP Sys/Horn Pulse Ox Last 24 Hr 97.4 F-98.6 F 63-75 18-18 145-158/68-90 98 cor-rrr lungs decreased bs at bases abd soft,nt ext no edema no buttock induration ulcer on thigh is clean rash improving femoral catheter for plasmapharesis CBC, BMP 05/24/17 07:12 05/24/17 07:12 Microbiology 05/15/17 12:35 Blood - Peripheral Venous Blood Culture - Final NO GROWTH AFTER 5 DAYS INCUBATION 05/15/17 12:25 Blood - Peripheral Venous Blood Culture - Final NO GROWTH AFTER 5 DAYS INCUBATION 05/11/17 02:00 Blood - Peripheral Venous Blood Culture - Final NO GROWTH AFTER 5 DAYS INCUBATION 05/11/17 02:00 Blood - Peripheral Venous Blood Culture - Final NO GROWTH AFTER 5 DAYS INCUBATION 05/12/17 16:40 Wound Gram Stain - Final 05/12/17 16:40 Wound Wound Culture - Final Mr S Aureus Diphtheroid/Corynebacterium 05/12/17 20:45 Urine - Urine Clean Catch Urine Culture - Final Escherichia Coli Active Medications Albumin Human (Plasbumin-5 -) 87.5 gm IVPB Q2D [facility] Stop: 05/27/17 10:01 Ascorbic Acid (Vitamin C -) 500 mg PO BID [facility] Last Admin: 05/24/17 10:25 Dose: 500 mg Atovaquone (Mepron -) 1,500 mg PO DAILY@0800 [facility] Last Admin: 05/24/17 08:27 Dose: 1,500 mg Calcium Carbonate/Cholecalciferol (Os-Russ 500+D -) 2 tab PO DAILY [facility] Last Admin: 05/24/17 10:25 Dose: 2 tab Calcium Gluconate (Calcium Gluconate 10% -) 1,000 mg IVPB ONCE PRN Collagenase (Santyl -) 1 applic TP DAILY [facility] Last Admin: 05/24/17 10:27 Dose: 1 applic Diphenhydramine HCl (Benadryl Injection -) 50 mg IVPB Q6H PRN PRN Reason: FOR ITCHING Docusate Sodium (Colace -) 100 mg PO BID [facility] Last Admin: 05/24/17 10:26 Dose: Not Given Fluconazole (Diflucan -) 100 mg PO DAILY [facility] Last Admin: 05/24/17 10:25 Dose: 100 mg Fluocinonide (Lidex 0.05% Ointment -) 1 applic TP DAILY [facility] Last Admin: 05/24/17 10:26 Dose: 1 applic Heparin Sodium (Porcine) (Heparin -) 5,000 unit SQ BID [facility] Last Admin: 05/24/17 10:25 Dose: 5,000 unit Hydralazine HCl (Apresoline -) 25 mg PO TID [facility] Last Admin: 05/24/17 06:21 Dose: 25 mg Insulin Aspart (Novolog Vial Sliding Scale -) 1 vial SQ ACHS [facility] PRN Reason: Protocol Last Admin: 05/24/17 06:21 Dose: Not Given Insulin Detemir (Levemir Vial) 7 units SQ HS [facility] Last Admin: 05/23/17 21:28 Dose: 7 units Levothyroxine Sodium (Synthroid -) 100 mcg PO DAILY@0700 [facility] Last Admin: 05/24/17 06:21 Dose: 100 mcg Nystatin (Nystatin Oral Suspension -) 500,000 units PO Q6HPO [facility] Last Admin: 05/24/17 06:21 Dose: 500,000 units Pantoprazole Sodium (Protonix -) 40 mg PO DAILY [facility] Last Admin: 05/24/17 10:25 Dose: 40 mg Prednisone (Deltasone -) 60 mg PO DAILY [facility] Last Admin: 05/24/17 10:25 Dose: 60 mg Sodium Chloride ([place] Nasal [place] -) 2 spray NS BID PRN PRN Reason: NASAL CONGESTION Valacyclovir HCl (Valtrex -) 500 mg PO BID [facility] Last Admin: 05/24/17 10:27 Dose: 500 mg a/p immunosuppressed patient on plasmapharesis and steroids-microscopic polyangiitis -reciving plasmapharesis drug rash improving continue valtrex for hsv suppression mepron for pcp prophylaxis MRSA contact isolation diabetes -on insulin diflucan for thrush sulfa allergy will sign off please call back if needed Problem List - Problems (1) Perirectal abscess Code(s): K61.1 - RECTAL ABSCESS (2) Microscopic polyangiitis Code(s): M31.7 - MICROSCOPIC POLYANGIITIS (3) MRSA (methicillin resistant staph aureus) culture positive Code(s): Z22.322 - CARRIER OR SUSPECTED CARRIER OF METHICILLIN RESIS STAPH
--- NOTE | 2017-05-24 12:16 | PN ---
Progress Note (short form) - Note Progress Note: Patient seen and examined feels better. NO complains, walking around in the room. CBC, BMP 05/24/17 07:12 05/24/17 07:12 Current Medications Generic Name Dose Route Start Last Admin Trade Name Freq PRN Reason Stop Dose Admin Albumin Human 87.5 gm 05/23/17 10:00 Plasbumin-5 - IVPB 05/27/17 10:01 Q2D [facility] Ascorbic Acid 500 mg 05/21/17 13:00 05/24/17 10:25 Vitamin C - PO 500 mg BID [facility] Administration Atovaquone 1,500 mg 05/16/17 08:00 05/24/17 08:27 Mepron - PO 1,500 mg DAILY@0800 [facility] Administration Calcium Carbonate/Cholecalciferol 2 tab 05/14/17 20:00 05/24/17 10:25 Os-Russ 500+D - PO 2 tab DAILY [facility] Administration Calcium Gluconate 1,000 mg 05/14/17 16:00 Calcium Gluconate 10% - IVPB ONCE PRN Collagenase 1 applic 05/12/17 17:00 05/24/17 10:27 Santyl - TP 1 applic DAILY [facility] Administration Diphenhydramine HCl 50 mg 05/23/17 10:15 Benadryl Injection - IVPB Q6H PRN FOR ITCHING Docusate Sodium 100 mg 05/11/17 22:00 05/24/17 10:26 Colace - PO Not Given BID [facility] Fluconazole 100 mg 05/21/17 15:30 05/24/17 10:25 Diflucan - PO 100 mg DAILY [facility] Administration Fluocinonide 1 applic 05/23/17 12:00 05/24/17 10:26 Lidex 0.05% Ointment - TP 1 applic DAILY [facility] Administration Heparin Sodium (Porcine) 5,000 unit 05/17/17 22:00 05/24/17 10:25 Heparin - SQ 5,000 unit BID [facility] Administration Hydralazine HCl 25 mg 05/22/17 14:00 05/24/17 06:21 Apresoline - PO 25 mg TID [facility] Administration Insulin Aspart 1 vial 05/11/17 07:00 05/24/17 12:08 Novolog Vial Sliding Scale - SQ Not Given ACHS [facility] Protocol Insulin Detemir 7 units 05/19/17 22:00 05/23/17 21:28 Levemir Vial SQ 7 units HS [facility] Administration Levothyroxine Sodium 100 mcg 05/11/17 07:00 05/24/17 06:21 Synthroid - PO 100 mcg DAILY@0700 [facility] Administration Nystatin 500,000 units 05/21/17 12:00 05/24/17 06:21 Nystatin Oral Suspension - PO 500,000 units Q6HPO [facility] Administration Pantoprazole Sodium 40 mg 05/11/17 13:00 05/24/17 10:25 Protonix - PO 40 mg DAILY [facility] Administration Prednisone 60 mg 05/13/17 10:00 05/24/17 10:25 Deltasone - PO 60 mg DAILY [facility] Administration Sodium Chloride 2 spray 05/22/17 09:24 [place] Nasal [place] - NS BID PRN NASAL CONGESTION Valacyclovir HCl 500 mg 05/11/17 10:00 05/24/17 10:27 Valtrex - PO 500 mg BID [facility] Administration Last Vital Signs Temp Pulse Resp BP Pulse Ox 97.9 F 66 18 154/90 98 05/24/17 06:00 05/24/17 06:00 05/24/17 06:00 05/24/17 06:00 05/23/17 22:00 Cor: RSR, No murmurs, No gallops Lungs: Clear to P&A Abd: Soft, Normal bowel sounds, No organomegaly Ext:No significant edema Skin: Rash: Much improved, very faint appearing now A/P 77 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 Now comes in with recurrent hemoptysis,and active urinary sediment indicating active disease #5/7 plasmaexchange with plasma and albumin. 3.5 l exchange. Monitor PT/PTT/ fibrinogen/CBC/Mg post pheresis and daily. Orders done for tomorrow, session 6. Labs for tomorrow, thus far parameters acceptable Superficial vein thrombosis -- Rt. greater saphenous vein -- on heparin SC , Noted on 04/26 and 05/14, No change between 04/26 and 05/14 On heparin SC will be continued Rash: almost resolved steroids and disease f/u per renal/rheum
[2017-05-24 13:05] LABS: BASOPHIL %. 1 % (0-2.0); TOTAL CELLS COUNTED 100
--- NOTE | 2017-05-24 15:55 | PN ---
Progress Note, Physician History of Present Illness: Pt seen and examined at bedside. She is awake and alert. She denies shortness of breath. She denies blood in sputum. - Current Medication List Current Medications: Active Medications Albumin Human (Plasbumin-5 -) 87.5 gm IVPB Q2D [facility] Stop: 05/27/17 10:01 Ascorbic Acid (Vitamin C -) 500 mg PO BID [facility] Last Admin: 05/24/17 10:25 Dose: 500 mg Atovaquone (Mepron -) 1,500 mg PO DAILY@0800 [facility] Last Admin: 05/24/17 08:27 Dose: 1,500 mg Calcium Carbonate/Cholecalciferol (Os-Russ 500+D -) 2 tab PO DAILY [facility] Last Admin: 05/24/17 10:25 Dose: 2 tab Calcium Gluconate (Calcium Gluconate 10% -) 1,000 mg IVPB ONCE PRN Collagenase (Santyl -) 1 applic TP DAILY [facility] Last Admin: 05/24/17 10:27 Dose: 1 applic Diphenhydramine HCl (Benadryl Injection -) 50 mg IVPB Q6H PRN PRN Reason: FOR ITCHING Docusate Sodium (Colace -) 100 mg PO BID [facility] Last Admin: 05/24/17 10:26 Dose: Not Given Fluconazole (Diflucan -) 100 mg PO DAILY [facility] Last Admin: 05/24/17 10:25 Dose: 100 mg Fluocinonide (Lidex 0.05% Ointment -) 1 applic TP DAILY [facility] Last Admin: 05/24/17 10:26 Dose: 1 applic Heparin Sodium (Porcine) (Heparin -) 5,000 unit SQ BID [facility] Last Admin: 05/24/17 10:25 Dose: 5,000 unit Hydralazine HCl (Apresoline -) 25 mg PO TID [facility] Last Admin: 05/24/17 13:37 Dose: 25 mg Insulin Aspart (Novolog Vial Sliding Scale -) 1 vial SQ ACHS [facility] PRN Reason: Protocol Last Admin: 05/24/17 12:08 Dose: Not Given Insulin Detemir (Levemir Vial) 7 units SQ HS [facility] Last Admin: 05/23/17 21:28 Dose: 7 units Levothyroxine Sodium (Synthroid -) 100 mcg PO DAILY@0700 [facility] Last Admin: 05/24/17 06:21 Dose: 100 mcg Nystatin (Nystatin Oral Suspension -) 500,000 units PO Q6HPO [facility] Last Admin: 05/24/17 13:37 Dose: 500,000 units Pantoprazole Sodium (Protonix -) 40 mg PO DAILY [facility] Last Admin: 05/24/17 10:25 Dose: 40 mg Prednisone (Deltasone -) 60 mg PO DAILY [facility] Last Admin: 05/24/17 10:25 Dose: 60 mg Sodium Chloride ([place] Nasal [place] -) 2 spray NS BID PRN PRN Reason: NASAL CONGESTION Valacyclovir HCl (Valtrex -) 500 mg PO BID [facility] Last Admin: 05/24/17 10:27 Dose: 500 mg - Objective Vital Signs: Vital Signs Temperature 97.8 F 05/24/17 14:39 Pulse Rate 61 05/24/17 14:39 Respiratory Rate 18 05/24/17 14:39 Blood Pressure 140/68 05/24/17 14:39 O2 Sat by Pulse Oximetry (%) 98 05/23/17 22:00 Constitutional: Yes: Calm Eyes: Yes: Conjunctiva Clear HENT: Yes: Atraumatic Neck: Yes: Supple Cardiovascular: Yes: S1, S2 Respiratory: Yes: CTA Bilaterally Gastrointestinal: Yes: Soft Genitourinary: Yes: WNL Musculoskeletal: Yes: WNL Edema: LLE: Trace, RLE: Trace Integumentary: Yes: Other (rash almost resolved) Neurological: Yes: Oriented Labs: CBC, BMP 05/24/17 07:12 05/24/17 07:12 INR, PTT INR 0.91 (0.82-1.09) 05/24/17 07:12 Fibrinogen 181.0 mg/dL (238-498) L 05/24/17 07:12 Problem List - Problems (1) Hemoptysis Code(s): R04.2 - HEMOPTYSIS (2) Acute kidney injury Code(s): N17.9 - ACUTE KIDNEY FAILURE, UNSPECIFIED Assessment/Plan Current Medications Generic Name Dose Route Start Last Admin Trade Name Freq PRN Reason Stop Dose Admin Albumin Human 87.5 gm 05/23/17 10:00 Plasbumin-5 - IVPB 05/27/17 10:01 Q2D [facility] Ascorbic Acid 500 mg 05/21/17 13:00 05/24/17 10:25 Vitamin C - PO 500 mg BID [facility] Administration Atovaquone 1,500 mg 05/16/17 08:00 05/24/17 08:27 Mepron - PO 1,500 mg DAILY@0800 [facility] Administration Calcium Carbonate/Cholecalciferol 2 tab 05/14/17 20:00 05/24/17 10:25 Os-Russ 500+D - PO 2 tab DAILY [facility] Administration Calcium Gluconate 1,000 mg 05/14/17 16:00 Calcium Gluconate 10% - IVPB ONCE PRN Collagenase 1 applic 05/12/17 17:00 05/24/17 10:27 Santyl - TP 1 applic DAILY [facility] Administration Diphenhydramine HCl 50 mg 05/23/17 10:15 Benadryl Injection - IVPB Q6H PRN FOR ITCHING Docusate Sodium 100 mg 05/11/17 22:00 05/24/17 10:26 Colace - PO Not Given BID [facility] Fluconazole 100 mg 05/21/17 15:30 05/24/17 10:25 Diflucan - PO 100 mg DAILY [facility] Administration Fluocinonide 1 applic 05/23/17 12:00 05/24/17 10:26 Lidex 0.05% Ointment - TP 1 applic DAILY [facility] Administration Heparin Sodium (Porcine) 5,000 unit 05/17/17 22:00 05/24/17 10:25 Heparin - SQ 5,000 unit BID [facility] Administration Hydralazine HCl 25 mg 05/22/17 14:00 05/24/17 13:37 Apresoline - PO 25 mg TID [facility] Administration Insulin Aspart 1 vial 05/11/17 07:00 05/24/17 12:08 Novolog Vial Sliding Scale - SQ Not Given ACHS [facility] Protocol Insulin Detemir 7 units 05/19/17 22:00 05/23/17 21:28 Levemir Vial SQ 7 units HS [facility] Administration Levothyroxine Sodium 100 mcg 05/11/17 07:00 05/24/17 06:21 Synthroid - PO 100 mcg DAILY@0700 [facility] Administration Nystatin 500,000 units 05/21/17 12:00 05/24/17 13:37 Nystatin Oral Suspension - PO 500,000 units Q6HPO [facility] Administration Pantoprazole Sodium 40 mg 05/11/17 13:00 05/24/17 10:25 Protonix - PO 40 mg DAILY [facility] Administration Prednisone 60 mg 05/13/17 10:00 05/24/17 10:25 Deltasone - PO 60 mg DAILY [facility] Administration Sodium Chloride 2 spray 05/22/17 09:24 [place] Nasal [place] - NS BID PRN NASAL CONGESTION Valacyclovir HCl 500 mg 05/11/17 10:00 05/24/17 10:27 Valtrex - PO 500 mg BID [facility] Administration Impression 1. MYRTLE 2. lower extremity ulcer 3. hypothyroid 4. HTN 5. polymyalgia 6. anemia 7. vasculitis microscopic polyangitis 8. thrombophlebitis 9. hemoptysis 10. thrush Plan - renal function is stabilizing - cont with plasma exchange as scheduled - will repeat ua after she completes course - will follow
--- NOTE | 2017-05-24 17:40 | PN ---
Progress Note (short form) - Note Progress Note: Subjective: The patient was seen and examined at the bedside, she denies any hemoptysis. Tolerated plasmapheresis Current Medications Generic Name Dose Route Start Last Admin Trade Name [place] PRN Reason Stop Dose Admin Albumin Human 87.5 gm 05/23/17 10:00 Plasbumin-5 - IVPB 05/27/17 10:01 Q2D [facility] Ascorbic Acid 500 mg 05/21/17 13:00 05/23/17 09:58 Vitamin C - PO 500 mg BID [facility] Administration Atovaquone 1,500 mg 05/16/17 08:00 05/23/17 09:59 Mepron - PO 1,500 mg DAILY@0800 [facility] Administration Calcium Carbonate/Cholecalciferol 2 tab 05/14/17 20:00 05/23/17 09:59 Os-Russ 500+D - PO 2 tab DAILY [facility] Administration Calcium Gluconate 1,000 mg 05/14/17 16:00 Calcium Gluconate 10% - IVPB ONCE PRN Collagenase 1 applic 05/12/17 17:00 05/23/17 10:05 Santyl - TP 1 applic DAILY [facility] Administration Diphenhydramine HCl 50 mg 05/23/17 10:15 Benadryl Injection - IVPB Q6H PRN FOR ITCHING Docusate Sodium 100 mg 05/11/17 22:00 05/23/17 09:57 Colace - PO 100 mg BID [facility] Administration Fluconazole 100 mg 05/21/17 15:30 05/23/17 09:58 Diflucan - PO 100 mg DAILY [facility] Administration Fluocinonide 1 applic 05/23/17 12:00 05/23/17 15:33 Lidex 0.05% Ointment - TP 1 applic DAILY [facility] Administration Heparin Sodium (Porcine) 5,000 unit 05/17/17 22:00 05/23/17 09:57 Heparin - SQ 5,000 unit BID [facility] Administration Hydralazine HCl 25 mg 05/22/17 14:00 05/23/17 15:34 Apresoline - PO 25 mg TID [facility] Administration Insulin Aspart 1 vial 05/11/17 07:00 05/23/17 17:20 Novolog Vial Sliding Scale - SQ 6 units ACHS [facility] Administration Protocol Insulin Detemir 7 units 05/19/17 22:00 05/22/17 22:22 Levemir Vial SQ 7 units HS [facility] Administration Levothyroxine Sodium 100 mcg 05/11/17 07:00 05/23/17 06:07 Synthroid - PO 100 mcg DAILY@0700 [facility] Administration Nystatin 500,000 units 05/21/17 12:00 05/23/17 17:22 Nystatin Oral Suspension - PO 500,000 units Q6HPO [facility] Administration Pantoprazole Sodium 40 mg 05/11/17 13:00 05/23/17 09:58 Protonix - PO 40 mg DAILY [facility] Administration Prednisone 60 mg 05/13/17 10:00 05/23/17 09:58 Deltasone - PO 60 mg DAILY [facility] Administration Sodium Chloride 2 spray 05/22/17 09:24 [place] Nasal [place] - NS BID PRN NASAL CONGESTION Valacyclovir HCl 500 mg 05/11/17 10:00 05/23/17 10:00 Valtrex - PO 500 mg BID [facility] Administration Objective: Vital Signs Period Temp Pulse Resp BP Sys/Horn Pulse Ox Last 24 Hr 97.4 F-98.5 F 59-93 18-20 135-155/52-99 98-98 Physical Exam: General: NAD, A&Ox3 Lungs: CTA bilaterally Heart: RRR, S1S2 Abd: Soft, non-tender, non-distended. Normoactive bowel sounds Ext: Left femoral catheter in place, no erythema surrounding insertion site. Warm, well-perfused. 2+ DP/PT bilaterally Skin: Macular rash much improved on back. +thrush CBCD WBC 10.5 K/mm3 (4.0-10.0) H 05/23/17 14:30 RBC 3.06 M/mm3 (3.60-5.2) L 05/23/17 14:30 Hgb 9.4 GM/dL (10.7-15.3) L 05/23/17 14:30 Hct 27.6 % (32.4-45.2) L 05/23/17 14:30 MCV 90.1 fl (80-96) 05/23/17 14:30 MCHC 34.0 g/dl (32.0-36.0) 05/23/17 14:30 RDW 23.0 % (11.6-15.6) H 05/23/17 14:30 Plt Count 172 K/MM3 (134-434) 05/23/17 14:30 MPV 8.6 fl (7.5-11.1) 05/23/17 14:30 CMP Sodium 142 mmol/L (136-145) 05/23/17 14:40 Potassium 4.2 mmol/L (3.5-5.1) 05/23/17 14:40 Chloride 106 mmol/L (98-107) 05/23/17 14:40 Carbon Dioxide 23 mmol/L (21-32) 05/23/17 14:40 Anion Gap 13 (8-16) 05/23/17 14:40 BUN 28 mg/dL (7-18) H 05/23/17 14:40 Creatinine 1.9 mg/dL (0.55-1.02) H 05/23/17 14:40 Creat Clearance w eGFR 25.70 (>60) 05/23/17 14:40 Random Glucose 255 mg/dL (74-106) H D 05/23/17 14:40 Calcium 8.0 mg/dL (8.5-10.1) L 05/23/17 14:40 Total Bilirubin 0.6 mg/dL (0.2-1.0) D 05/23/17 14:40 AST 17 U/L (15-37) D 05/23/17 14:40 ALT 24 U/L (12-78) 05/23/17 14:40 Alkaline Phosphatase 71 U/L (45-117) 05/23/17 14:40 Total Protein 6.1 g/dl (6.4-8.2) L 05/23/17 14:40 Albumin 4.0 g/dl (3.4-5.0) D 05/23/17 14:40 Microbiology 05/15/17 12:35 Blood - Peripheral Venous Blood Culture - Final NO GROWTH AFTER 5 DAYS INCUBATION 05/15/17 12:25 Blood - Peripheral Venous Blood Culture - Final NO GROWTH AFTER 5 DAYS INCUBATION 05/11/17 02:00 Blood - Peripheral Venous Blood Culture - Final NO GROWTH AFTER 5 DAYS INCUBATION 05/11/17 02:00 Blood - Peripheral Venous Blood Culture - Final NO GROWTH AFTER 5 DAYS INCUBATION 05/12/17 16:40 Wound Gram Stain - Final 05/12/17 16:40 Wound Wound Culture - Final Mr S Aureus Diphtheroid/Corynebacterium 05/12/17 20:45 Urine - Urine Clean Catch Urine Culture - Final Escherichia Coli Assessment: This is a 77 year old female with PMHx of HTN, chronic venous stasis lower extremity ulcers, polymyalgia rheumatica, hypothyroidism, recent diagnosis of microscopic polyangitis on 05/10, who presented to the ED with hemoptysis and was started on plamapheresis. Plan: 1) Microscopic polyangitis vasculitis - Plasma exchange 11/25 today, q every other day - Following exchange, check PT, PTT, fibrinogen, Mg, phos levels and daily - Continue Prednisone 60mg po daily - Valtrex BID - Started mepron pcp ppx - Appreciate hematology consult 2) R buttock phlegmon - Abx discontinued as it appears to be clinically resolved 3) Left posterior thigh wound + MRSA - Zosyn discontinued after patient formed rash on 05/20 - Rash improving, off all abx - Appreciate ID consult 4) Thrush - Continue Diflucan 5) UTI,Klebsiella - Zosyn discontinued / rash - Abx discontinued per ID 6) Acute on chronic anemia - Hgb stable - Transfusions: 1uprbc 05/14, 05/18 7) Thrombocytopenia - Resolved 8) CKD - Improving and stable at Cr 1.7 9) Hypothyroid - Synthroid daily 10) Hemoptysis - Resolved 11) HTN - Above goal - Continue Hydralazine to 25mg tid 12) DM - BGM ACHS - ISS ACHS - Continue levemir 7 units hs 13) Prophylaxis - Heparin 5,000u sq bid - Protonix 40mg po daily 14) Left posterior thigh wound - Daily dressing change with packing Visit type - Emergency Visit Emergency Visit: Yes ED Registration Date: 05/12/17 Care time: The patient presented to the Emergency Department on the above date and was hospitalized for further evaluation of their emergent condition. - New Patient This patient is new to me today: Yes Date on this admission: 06/05/17 - Critical Care Critical Care patient: No
[2017-05-24] MEDS: INSULIN DETEMIR 100 UNITS/ML MDV SQ SCH (22:19)
[2017-05-25] MEDS: NYSTATIN 500,000 UNITS/5 ML SUSPENSION PO SCH ×4 (00:10→17:12)
[2017-05-25] MEDS: INSULIN SLIDING SCALE (NOVOLOG) 1 VIAL SQ SCH ×4 (06:02→22:10)
[2017-05-25] MEDS: LEVOTHYROXINE NA 100 MCG TABLET (FP) PO SCH (06:02)
[2017-05-25] MEDS: hydrALAZINE HCL 25 MG TABLET (FP) PO SCH ×3 (06:02→22:09)
[2017-05-25 09:18] LABS: ALBUMIN 3.4 g/dl (3.4-5.0); ANION GAP 7 (8-16); BILIRUBIN,TOTAL 0.3 mg/dL (0.2-1.0); CALCIUM 7.9 mg/dL (8.5-10.1); CO2 28 mmol/L (21-32); CREATININE 1.7 mg/dL (0.55-1.02); GLUCOSE,RANDOM 85 mg/dL (74-106); SGPT/ALT 24 U/L (12-78); TOT PROT 5.3 g/dl (6.4-8.2)
[2017-05-25 09:19] LABS: ALK PHOS 53 U/L (45-117)
[2017-05-25] MEDS ORDERED: PT OWN MED DRAWER 7, Y5N ONE ×2 (09:26→21:57)
[2017-05-25] MEDS: ASCORBIC ACID 500 MG TABLET (FP) PO SCH ×2 (09:31→22:09)
[2017-05-25] MEDS: predniSONE 20 MG TABLET (UD) PO SCH (09:31)
[2017-05-25] MEDS: PANTOPRAZOLE 40 MG TABLET (FP) PO SCH (09:31)
[2017-05-25] MEDS: DOCUSATE SODIUM 100 MG CAPSULE (FP) PO SCH ×2 (09:31→22:09)
[2017-05-25] MEDS: FLUCONAZOLE 100 MG TABLET (UD) PO SCH (09:31)
[2017-05-25] MEDS: CALCIUM 500MG/VIT-D 200 UNITS COMBO TABLET (FP) PO SCH (09:32)
[2017-05-25] MEDS: valACYclovir HCL 500 MG TABLET (FP) PO SCH ×2 (09:32→22:28)
[2017-05-25] MEDS: ATOVAQUONE 750 MG/5 ML (UNIT-DOSE PACKAGING) PO SCH (09:33)
[2017-05-25] MEDS: FLUOCINONIDE 0.05% TOP OINT (15 GM TUBE) TP SCH (09:38)
[2017-05-25] MEDS: COLLAGENASE CLOSTRIDIUM HIST. 30 GRAMS TUBE TP SCH (09:39)
[2017-05-25 09:40] LABS: SGOT/AST 13 U/L (15-37)
[2017-05-25 10:51] LABS: MCH 31.1 pg (25.7-33.7); MCHC 34.1 g/dl (32.0-36.0); MEAN CELL VOLUME 91.4 fl (80-96); PLATELET COUNT 181 K/MM3 (134-434); RDW 23.7 % (11.6-15.6); WHITE BLOOD COUNT 8.8 K/mm3 (4.0-10.0)
[2017-05-25] MEDS: ALBUMIN HUMAN 5% 250 ML IV SOLUTION IVPB SCH (11:00)
[2017-05-25] MEDS ORDERED: HEPARIN NA (PORCINE) 5,000 UNITS/ML 1ML VIAL IVPUSH PRN (12:20)
[2017-05-25 14:30] LABS: MCH 30.6 pg (25.7-33.7); MCHC 33.8 g/dl (32.0-36.0); MEAN CELL VOLUME 90.5 fl (80-96); MEAN PLT VOLUME 8.4 fl (7.5-11.1); PLATELET COUNT 170 K/MM3 (134-434); RDW 23.1 % (11.6-15.6); WHITE BLOOD COUNT 9.6 K/mm3 (4.0-10.0)
[2017-05-25 15:05] LABS: ALBUMIN 3.9 g/dl (3.4-5.0); ANION GAP 14 (8-16); CO2 24 mmol/L (21-32); CREATININE 1.7 mg/dL (0.55-1.02); GLUCOSE,RANDOM 268 mg/dL (74-106); MAGNESIUM 1.7 mg/dL (1.8-2.4); SGOT/AST 11 U/L (15-37); SGPT/ALT 21 U/L (12-78)
[2017-05-25 15:06] LABS: BILIRUBIN,TOTAL 0.6 mg/dL (0.2-1.0); INR 1.08 (0.82-1.09); PROTHROMBIN TIME (PATIENT) 12.2 SEC (9.98-11.88); TOT PROT 5.7 g/dl (6.4-8.2)
[2017-05-25 15:07] LABS: ALK PHOS 55 U/L (45-117)
[2017-05-25 15:11] LABS: ACTIVATED PTT 78.7 SECONDS (26.9-34.4)
[2017-05-25] MEDS ORDERED: MAGNESIUM SULF 50% (8.12 MEQ/2 ML-1 GM VIAL) IVPB ONE (15:16)
--- NOTE | 2017-05-25 15:23 | PN ---
Physical Exam: SUBJECTIVE: Patient seen and examined at the bedside. reports feeling well after the plasmapheresis. Denies chest pain or shortness of breath. OBJECTIVE: Plasmaphresis 12/26 today Vital Signs Period Temp Pulse Resp BP Sys/Horn Pulse Ox Last 24 Hr 97.8 F-98.4 F 61-68 18-18 136-169/64-81 98 ENERAL: The patient is awake, alert, and fully oriented, in no acute distress HEAD: Normal with no signs of trauma. EYES: PERRL, extraocular movements intact, sclera anicteric, conjunctiva clear. No ptosis. ENT: Ears normal, nares patent, oropharynx clear without exudates, moist mucous membranes. NECK: Trachea midline, full range of motion, supple. LUNGS: Breath sounds equal, clear to auscultation bilaterally, no wheezes, no crackles, no accessory muscle use. HEART: Regular rate and rhythm ABDOMEN: Soft, nontender, nondistended, normoactive bowel sounds, no guarding, no rebound, no hepatosplenomegaly, no masses. EXTREMITIES: 2+ pulses, warm, well-perfused, no edema. + right groin shiley catheter for plasmapheresis NEUROLOGICAL: Normal speech, gait not observed. PSYCH: Normal mood, normal affect. SKIN: improving pink rash that covers most of her her upper back, sides of bilateral breast Laboratory Results - last 24 hr 05/24/17 05/24/17 05/25/17 16:48 22:18 05:48 WBC Corrected WBC (auto) RBC Hgb Hct MCV MCH MCHC RDW Plt Count MPV Neutrophils % Lymphocytes % Differential Comment Platelet Estimate Platelet Comment RBC Morphology PT with INR INR PTT (Actin FS) Fibrinogen Sodium Potassium Chloride Carbon Dioxide Anion Gap BUN Creatinine Creat Clearance w eGFR POC Glucometer 241 289 140 Random Glucose Calcium Magnesium Total Bilirubin AST ALT Alkaline Phosphatase Total Protein Albumin 05/25/17 05/25/17 05/25/17 08:00 08:00 09:38 WBC Cancelled 8.8 Corrected WBC (auto) Cancelled RBC Cancelled 3.07 L Hgb Cancelled 9.6 L Hct Cancelled 28.1 L MCV Cancelled 91.4 MCH Cancelled 31.1 MCHC Cancelled 34.1 RDW Cancelled 23.7 H Plt Count Cancelled 181 MPV Cancelled 8.0 Neutrophils % Lymphocytes % Differential Comment Cancelled Platelet Estimate Cancelled Platelet Comment Cancelled RBC Morphology Cancelled PT with INR INR PTT (Actin FS) Fibrinogen Sodium 143 Potassium 3.7 Chloride 108 H Carbon Dioxide 28 Anion Gap 7 L BUN 31 H Creatinine 1.7 H Creat Clearance w eGFR 29.22 POC Glucometer Random Glucose 85 Calcium 7.9 L Magnesium Total Bilirubin 0.3 D AST 13 L ALT 24 Alkaline Phosphatase 53 Total Protein 5.3 L Albumin 3.4 05/25/17 05/25/17 05/25/17 12:50 13:20 13:20 WBC 9.6 Corrected WBC (auto) RBC 3.01 L Hgb 9.2 L Hct 27.2 L MCV 90.5 MCH 30.6 MCHC 33.8 RDW 23.1 H Plt Count 170 MPV 8.4 Neutrophils % No Result Required. Lymphocytes % No Result Required. Differential Comment Platelet Estimate Platelet Comment RBC Morphology PT with INR 12.20 H INR 1.08 PTT (Actin FS) 78.7 H D Fibrinogen 150.0 L Sodium Potassium Chloride Carbon Dioxide Anion Gap BUN Creatinine Creat Clearance w eGFR POC Glucometer 143 Random Glucose Calcium Magnesium Total Bilirubin AST ALT Alkaline Phosphatase Total Protein Albumin 05/25/17 13:20 WBC Corrected WBC (auto) RBC Hgb Hct MCV MCH MCHC RDW Plt Count MPV Neutrophils % Lymphocytes % Differential Comment Platelet Estimate Platelet Comment RBC Morphology PT with INR INR PTT (Actin FS) Fibrinogen Sodium 142 Potassium 3.6 Chloride 104 Carbon Dioxide 24 Anion Gap 14 BUN 26 H Creatinine 1.7 H Creat Clearance w eGFR 29.22 POC Glucometer Random Glucose 268 H D Calcium 8.0 L Magnesium 1.7 L Total Bilirubin 0.6 D AST 11 L ALT 21 Alkaline Phosphatase 55 Total Protein 5.7 L Albumin 3.9 Active Medications Generic Name Dose Route Start Last Admin Trade Name Freq PRN Reason Stop Dose Admin Albumin Human 87.5 gm 05/23/17 10:00 05/25/17 11:00 Plasbumin-5 - IVPB 05/27/17 10:01 Not Given Q2D [facility] Ascorbic Acid 500 mg 05/21/17 13:00 05/25/17 09:31 Vitamin C - PO 500 mg BID [facility] Administration Atovaquone 1,500 mg 05/16/17 08:00 05/25/17 09:33 Mepron - PO 1,500 mg DAILY@0800 [facility] Administration Calcium Carbonate/Cholecalciferol 2 tab 05/14/17 20:00 05/25/17 09:32 Os-Russ 500+D - PO 2 tab DAILY [facility] Administration Calcium Gluconate 1,000 mg 05/14/17 16:00 Calcium Gluconate 10% - IVPB ONCE PRN Collagenase 1 applic 05/12/17 17:00 05/25/17 09:39 Santyl - TP 1 applic DAILY [facility] Administration Diphenhydramine HCl 50 mg 05/23/17 10:15 Benadryl Injection - IVPB Q6H PRN FOR ITCHING Docusate Sodium 100 mg 05/11/17 22:00 05/25/17 09:31 Colace - PO 100 mg BID [facility] Administration Fluconazole 100 mg 05/21/17 15:30 05/25/17 09:31 Diflucan - PO 100 mg DAILY [facility] Administration Fluocinonide 1 applic 05/23/17 12:00 05/25/17 09:38 Lidex 0.05% Ointment - TP 1 applic DAILY [facility] Administration Heparin Sodium (Porcine) 5,000 unit 05/25/17 12:20 Heparin - IVPUSH PRN PRN Heparin flush for shiley caths Hydralazine HCl 25 mg 05/22/17 14:00 05/25/17 14:23 Apresoline - PO 25 mg TID [facility] Administration Insulin Aspart 1 vial 05/11/17 07:00 05/25/17 12:50 Novolog Vial Sliding Scale - SQ Not Given ACHS [facility] Protocol Insulin Detemir 7 units 05/19/17 22:00 05/24/17 22:19 Levemir Vial SQ 7 units HS [facility] Administration Levothyroxine Sodium 100 mcg 05/11/17 07:00 05/25/17 06:02 Synthroid - PO 100 mcg DAILY@0700 [facility] Administration Nystatin 500,000 units 05/21/17 12:00 05/25/17 12:51 Nystatin Oral Suspension - PO 500,000 units Q6HPO [facility] Administration Pantoprazole Sodium 40 mg 05/11/17 13:00 05/25/17 09:31 Protonix - PO 40 mg DAILY [facility] Administration Prednisone 60 mg 05/13/17 10:00 05/25/17 09:31 Deltasone - PO 60 mg DAILY [facility] Administration Sodium Chloride 2 spray 05/22/17 09:24 [place] Nasal [place] - NS BID PRN NASAL CONGESTION Valacyclovir HCl 500 mg 05/11/17 10:00 05/25/17 09:32 Valtrex - PO 500 mg BID [facility] Administration ASSESSMENT/PLAN: Patient is an 77 year-old female with a significant past medical history of HTN , chronic venous stasis lower extremity ulcers, polymyaglia rheumatica, and hypothyroidism. She presents to the hospital on 05/10/17 with an isolated episode of hemoptysis. Patient was recently admitted here between 04/09 --> 04/29 for bilateral lower extremity cellulitis and MYRTLE. During last admission she was diagnosed with microscopic polyangitis and was getting outpatient Rituxan infusions and has received 3/4 doses. She was admitted on 05/11/2017 for hemoptysis. Her Rituxan therapy was stopped on admission an she will not be treated with 7 sessions of plasmapheresis for microscoic polyangitis (which began on 05/14 2017 via right groin shiley). Imaging: Vascular study 05/14/2017 shows thrombosis involving the right mid and distal grater saphenous vein consistent with superficial venous thromboses, no evidence of DVT on right or left lower ext. 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 She was on Rituxan weekly and has received 3/4 doses, she will now be getting plasma exchange which began on 05/14 Received 6 of 7 of plamapheresis today (every other day) Will likely need another dose of rituximab to complete course On Prednisone 60mg daily as per rheumatology On Valtrex BID, Started Mepron Hematology: Anemia of chronic disease, acute on chronic S/P 2 unit or prbc on this admission hmg/hct low, stable Thrombocytopenia, resolved Monitor labs Renal: Chronic Kidney Disease, acute on chronic Monitor creatinine Renal following Vascular: Chronic LE venous stasis ulcers, followed by vascular Wound care daily Vascular study 05/14/2017 shows thrombosis involving the right mid and distal grater saphenous vein consistent with superficial venous thromboses, no evidence of DVT on right or left lower ext. Heparin BID : UA +3 Leuk, Est, Ecoli Treated with Zosyn Endocrine: Hypothyroidism, chronic A/P: On home dose of Synthroid of 100mcgs Continue current dose Hyperglycemia, likely steroid induced A/p: Levemir daily, Novolog, BGMs F.E.N. Fluids: tolerating PO Electrolytes: Hypomag @1.7, given 2 gram IV x 1 Hypocalcemia corrected @ 8.2 on Calcium supplements BID Potassium, now within normal limits Prophylaxis: DVT: ambulatory, heparin stopped by heme GI: Protonix while on steriods Dispo: full code. Visit type - Emergency Visit Emergency Visit: Yes ED Registration Date: 05/12/17 Care time: The patient presented to the Emergency Department on the above date and was hospitalized for further evaluation of their emergent condition. - New Patient This patient is new to me today: No - Critical Care Critical Care patient: No - Discharge Referral Referred to [facility] Med P.C.: No
[2017-05-25 15:41] LABS: MYELOCYTE 2 % (0-2); TOTAL CELLS COUNTED 100
[2017-05-25 15:43] LABS: PLATELET ESTIMATE ADEQUATE (NORMAL)
--- NOTE | 2017-05-25 16:09 | PN ---
Progress Note, Physician History of Present Illness: Pt seen and examined at bedside. She is awake and alert. She denies shortness of breath. - Current Medication List Current Medications: Active Medications Albumin Human (Plasbumin-5 -) 87.5 gm IVPB Q2D [facility] Stop: 05/27/17 10:01 Last Admin: 05/25/17 11:00 Dose: Not Given Ascorbic Acid (Vitamin C -) 500 mg PO BID [facility] Last Admin: 05/25/17 09:31 Dose: 500 mg Atovaquone (Mepron -) 1,500 mg PO DAILY@0800 [facility] Last Admin: 05/25/17 09:33 Dose: 1,500 mg Calcium Carbonate/Cholecalciferol (Os-Russ 500+D -) 2 tab PO DAILY [facility] Last Admin: 05/25/17 09:32 Dose: 2 tab Calcium Gluconate (Calcium Gluconate 10% -) 1,000 mg IVPB ONCE PRN Collagenase (Santyl -) 1 applic TP DAILY [facility] Last Admin: 05/25/17 09:39 Dose: 1 applic Diphenhydramine HCl (Benadryl Injection -) 50 mg IVPB Q6H PRN PRN Reason: FOR ITCHING Docusate Sodium (Colace -) 100 mg PO BID [facility] Last Admin: 05/25/17 09:31 Dose: 100 mg Fluconazole (Diflucan -) 100 mg PO DAILY [facility] Last Admin: 05/25/17 09:31 Dose: 100 mg Fluocinonide (Lidex 0.05% Ointment -) 1 applic TP DAILY [facility] Last Admin: 05/25/17 09:38 Dose: 1 applic Heparin Sodium (Porcine) (Heparin -) 5,000 unit IVPUSH PRN PRN PRN Reason: Heparin flush for shiley caths Hydralazine HCl (Apresoline -) 25 mg PO TID [facility] Last Admin: 05/25/17 14:23 Dose: 25 mg Insulin Aspart (Novolog Vial Sliding Scale -) 1 vial SQ ACHS [facility] PRN Reason: Protocol Last Admin: 05/25/17 12:50 Dose: Not Given Insulin Detemir (Levemir Vial) 7 units SQ HS [facility] Last Admin: 05/24/17 22:19 Dose: 7 units Levothyroxine Sodium (Synthroid -) 100 mcg PO DAILY@0700 [facility] Last Admin: 05/25/17 06:02 Dose: 100 mcg Nystatin (Nystatin Oral Suspension -) 500,000 units PO Q6HPO [facility] Last Admin: 05/25/17 12:51 Dose: 500,000 units Pantoprazole Sodium (Protonix -) 40 mg PO DAILY [facility] Last Admin: 05/25/17 09:31 Dose: 40 mg Prednisone (Deltasone -) 60 mg PO DAILY [facility] Last Admin: 05/25/17 09:31 Dose: 60 mg Sodium Chloride ([place] Nasal [place] -) 2 spray NS BID PRN PRN Reason: NASAL CONGESTION Valacyclovir HCl (Valtrex -) 500 mg PO BID [facility] Last Admin: 05/25/17 09:32 Dose: 500 mg - Objective Vital Signs: Vital Signs Temperature 97.9 F 05/25/17 15:44 Pulse Rate 65 05/25/17 15:44 Respiratory Rate 18 05/25/17 15:44 Blood Pressure 141/75 05/25/17 15:44 O2 Sat by Pulse Oximetry (%) 98 05/24/17 22:00 Constitutional: Yes: Calm Eyes: Yes: Conjunctiva Clear HENT: Yes: Atraumatic Neck: Yes: Supple Cardiovascular: Yes: S1, S2 Respiratory: Yes: CTA Bilaterally Gastrointestinal: Yes: Soft Genitourinary: Yes: WNL Musculoskeletal: Yes: WNL Edema: Yes Edema: LLE: Trace, RLE: Trace Neurological: Yes: Oriented Psychiatric: Yes: Oriented Labs: CBC, BMP 05/25/17 13:20 05/25/17 13:20 INR, PTT INR 1.08 (0.82-1.09) 05/25/17 13:20 Fibrinogen 150.0 mg/dL (238-498) L 05/25/17 13:20 Problem List - Problems (1) Hemoptysis Code(s): R04.2 - HEMOPTYSIS (2) Acute kidney injury Code(s): N17.9 - ACUTE KIDNEY FAILURE, UNSPECIFIED Assessment/Plan Current Medications Generic Name Dose Route Start Last Admin Trade Name Freq PRN Reason Stop Dose Admin Albumin Human 87.5 gm 05/23/17 10:00 05/25/17 11:00 Plasbumin-5 - IVPB 05/27/17 10:01 Not Given Q2D [facility] Ascorbic Acid 500 mg 05/21/17 13:00 05/25/17 09:31 Vitamin C - PO 500 mg BID [facility] Administration Atovaquone 1,500 mg 05/16/17 08:00 05/25/17 09:33 Mepron - PO 1,500 mg DAILY@0800 [facility] Administration Calcium Carbonate/Cholecalciferol 2 tab 05/14/17 20:00 05/25/17 09:32 Os-Russ 500+D - PO 2 tab DAILY [facility] Administration Calcium Gluconate 1,000 mg 05/14/17 16:00 Calcium Gluconate 10% - IVPB ONCE PRN Collagenase 1 applic 05/12/17 17:00 05/25/17 09:39 Santyl - TP 1 applic DAILY [facility] Administration Diphenhydramine HCl 50 mg 05/23/17 10:15 Benadryl Injection - IVPB Q6H PRN FOR ITCHING Docusate Sodium 100 mg 05/11/17 22:00 05/25/17 09:31 Colace - PO 100 mg BID [facility] Administration Fluconazole 100 mg 05/21/17 15:30 05/25/17 09:31 Diflucan - PO 100 mg DAILY [facility] Administration Fluocinonide 1 applic 05/23/17 12:00 05/25/17 09:38 Lidex 0.05% Ointment - TP 1 applic DAILY [facility] Administration Heparin Sodium (Porcine) 5,000 unit 05/25/17 12:20 Heparin - IVPUSH PRN PRN Heparin flush for shiley caths Hydralazine HCl 25 mg 05/22/17 14:00 05/25/17 14:23 Apresoline - PO 25 mg TID [facility] Administration Insulin Aspart 1 vial 05/11/17 07:00 05/25/17 12:50 Novolog Vial Sliding Scale - SQ Not Given ACHS [facility] Protocol Insulin Detemir 7 units 05/19/17 22:00 05/24/17 22:19 Levemir Vial SQ 7 units HS [facility] Administration Levothyroxine Sodium 100 mcg 05/11/17 07:00 05/25/17 06:02 Synthroid - PO 100 mcg DAILY@0700 [facility] Administration Nystatin 500,000 units 05/21/17 12:00 05/25/17 12:51 Nystatin Oral Suspension - PO 500,000 units Q6HPO [facility] Administration Pantoprazole Sodium 40 mg 05/11/17 13:00 05/25/17 09:31 Protonix - PO 40 mg DAILY [facility] Administration Prednisone 60 mg 05/13/17 10:00 05/25/17 09:31 Deltasone - PO 60 mg DAILY [facility] Administration Sodium Chloride 2 spray 05/22/17 09:24 [place] Nasal [place] - NS BID PRN NASAL CONGESTION Valacyclovir HCl 500 mg 05/11/17 10:00 05/25/17 09:32 Valtrex - PO 500 mg BID [facility] Administration Impression 1. MYRTLE 2. lower extremity ulcer 3. hypothyroid 4. HTN 5. polymyalgia 6. anemia 7. vasculitis microscopic polyangitis 8. thrombophlebitis 9. hemoptysis 10. thrush Plan - plasma exchange Saturday - will discuss rituximab with Dr duenas - will repeat ua next week - cont current meds - will need flu shot as she has not gotten it Dr Hamilton
[2017-05-25] MEDS: INSULIN DETEMIR 100 UNITS/ML MDV SQ SCH (22:10)
[2017-05-26] MEDS: NYSTATIN 500,000 UNITS/5 ML SUSPENSION PO SCH ×4 (01:08→18:19)
--- NOTE | 2017-05-26 01:37 | PN ---
Progress Note (short form) - Note Progress Note: Patient seen and examined feels better. tolerated session well today denies any complains Cor: RSR, No murmurs, No gallops Lungs: Clear to P&A Abd: Soft, Normal bowel sounds, No organomegaly Ext:No significant edema Skin: Rash: not visible lab/meds/chart/vitals reviewed A/P 77 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 Now comes in with recurrent hemoptysis,and active urinary sediment indicating active disease #6/ plasmaexchange with plasma and albumin. 3.5 l exchange. Monitor PT/PTT/ fibrinogen/CBC/Mg post pheresis and daily. Superficial vein thrombosis -- Rt. greater saphenous vein -- on heparin SC , Noted on 04/26 and 05/14, No change between 04/26 and 05/14 On heparin SC will be continued
[2017-05-26] MEDS: INSULIN SLIDING SCALE (NOVOLOG) 1 VIAL SQ SCH ×4 (06:16→22:42)
[2017-05-26] MEDS: hydrALAZINE HCL 25 MG TABLET (FP) PO SCH ×3 (06:23→22:42)
[2017-05-26] MEDS: LEVOTHYROXINE NA 100 MCG TABLET (FP) PO SCH (06:23)
[2017-05-26] MEDS ORDERED: PT OWN MED DRAWER 7, Y5N ONE ×2 (08:28→21:56)
[2017-05-26] MEDS: ATOVAQUONE 750 MG/5 ML (UNIT-DOSE PACKAGING) PO SCH (08:31)
[2017-05-26 08:53] LABS: MCH 30.8 pg (25.7-33.7); MCHC 33.8 g/dl (32.0-36.0); MEAN CELL VOLUME 90.9 fl (80-96); PLATELET COUNT 172 K/MM3 (134-434); RDW 23.2 % (11.6-15.6); WHITE BLOOD COUNT 8.7 K/mm3 (4.0-10.0)
[2017-05-26 09:22] LABS: ALBUMIN 3.9 g/dl (3.4-5.0); ALK PHOS 48 U/L (45-117); ANION GAP 9 (8-16); BILIRUBIN,TOTAL 0.6 mg/dL (0.2-1.0); CALCIUM 8.1 mg/dL (8.5-10.1); CO2 27 mmol/L (21-32); CREATININE 1.7 mg/dL (0.55-1.02); GLUCOSE,RANDOM 90 mg/dL (74-106); MAGNESIUM 2.1 mg/dL (1.8-2.4); SGOT/AST 10 U/L (15-37); SGPT/ALT 21 U/L (12-78); TOT PROT 5.6 g/dl (6.4-8.2)
[2017-05-26] MEDS ORDERED: POTASSIUM CHLORIDE TABS 20 MEQ TABLET.ER (FP) PO ONE (09:27)
[2017-05-26] MEDS: COLLAGENASE CLOSTRIDIUM HIST. 30 GRAMS TUBE TP SCH (10:17)
[2017-05-26] MEDS: FLUCONAZOLE 100 MG TABLET (UD) PO SCH (11:05)
[2017-05-26] MEDS: CALCIUM 500MG/VIT-D 200 UNITS COMBO TABLET (FP) PO SCH (11:05)
[2017-05-26] MEDS: PANTOPRAZOLE 40 MG TABLET (FP) PO SCH (11:05)
[2017-05-26] MEDS: HEPARIN NA (PORCINE) 5,000 UNITS/ML 1ML VIAL SQ SCH ×2 (11:05→22:50)
[2017-05-26] MEDS: DOCUSATE SODIUM 100 MG CAPSULE (FP) PO SCH ×2 (11:06→22:42)
[2017-05-26] MEDS: predniSONE 20 MG TABLET (UD) PO SCH (11:06)
[2017-05-26] MEDS: valACYclovir HCL 500 MG TABLET (FP) PO SCH ×2 (11:06→22:42)
[2017-05-26] MEDS: ASCORBIC ACID 500 MG TABLET (FP) PO SCH ×2 (11:06→22:42)
[2017-05-26] MEDS: FLUOCINONIDE 0.05% TOP OINT (15 GM TUBE) TP SCH (11:08)
[2017-05-26 11:27] LABS: TOTAL CELLS COUNTED 100
[2017-05-26 11:32] LABS: ANISOCYTOSIS 3+
[2017-05-26 11:33] LABS: MICROCYTOSIS 1+
--- NOTE | 2017-05-26 13:49 | PN ---
Progress Note, Physician History of Present Illness: Pt seen and examined at bedside. She is awake and alert. She is out of bed to chair. - Current Medication List Current Medications: Active Medications Albumin Human (Plasbumin-5 -) 87.5 gm IVPB Q2D [facility] Stop: 05/27/17 10:01 Last Admin: 05/25/17 11:00 Dose: Not Given Ascorbic Acid (Vitamin C -) 500 mg PO BID [facility] [place] Last Admin: 05/26/17 11:06 Dose: 500 mg Atovaquone (Mepron -) 1,500 mg PO DAILY@0800 [facility] [place] Last Admin: 05/26/17 08:31 Dose: 1,500 mg Calcium Carbonate/Cholecalciferol (Os-Russ 500+D -) 2 tab PO DAILY [facility] [place] Last Admin: 05/26/17 11:05 Dose: 2 tab Calcium Gluconate (Calcium Gluconate 10% -) 1,000 mg IVPB ONCE PRN Collagenase (Santyl -) 1 applic TP DAILY [facility] [place] Last Admin: 05/25/17 09:39 Dose: 1 applic Diphenhydramine HCl (Benadryl Injection -) 50 mg IVPB Q6H PRN PRN Reason: FOR ITCHING Docusate Sodium (Colace -) 100 mg PO BID [facility] [place] Last Admin: 05/26/17 11:06 Dose: 100 mg Fluconazole (Diflucan -) 100 mg PO DAILY [facility] [place] Last Admin: 05/26/17 11:05 Dose: 100 mg Fluocinonide (Lidex 0.05% Ointment -) 1 applic TP DAILY [facility] [place] Last Admin: 05/26/17 11:08 Dose: 1 applic Heparin Sodium (Porcine) (Heparin -) 5,000 unit IVPUSH PRN PRN PRN Reason: Heparin flush for shiley caths Heparin Sodium (Porcine) (Heparin -) 5,000 unit SQ BID [facility] [place] Last Admin: 05/26/17 11:05 Dose: 5,000 unit Hydralazine HCl (Apresoline -) 25 mg PO TID [facility] [place] Last Admin: 05/26/17 06:23 Dose: 25 mg Insulin Aspart (Novolog Vial Sliding Scale -) 1 vial SQ ACHS [facility] PRN Reason: Protocol Last Admin: 05/26/17 06:16 Dose: Not Given Insulin Detemir (Levemir Vial) 7 units SQ HS [facility] [place] Last Admin: 05/25/17 22:10 Dose: 7 units Levothyroxine Sodium (Synthroid -) 100 mcg PO DAILY@0700 [facility] [place] Last Admin: 05/26/17 06:23 Dose: 100 mcg Nystatin (Nystatin Oral Suspension -) 500,000 units PO Q6HPO [facility] [place] Last Admin: 05/26/17 06:22 Dose: 500,000 units Pantoprazole Sodium (Protonix -) 40 mg PO DAILY [facility] [place] Last Admin: 05/26/17 11:05 Dose: 40 mg Prednisone (Deltasone -) 60 mg PO DAILY [facility] [place] Last Admin: 05/26/17 11:06 Dose: 60 mg Sodium Chloride ([place] Nasal [place] -) 2 spray NS BID PRN PRN Reason: NASAL CONGESTION Valacyclovir HCl (Valtrex -) 500 mg PO BID [facility] [place] Last Admin: 05/26/17 11:06 Dose: 500 mg - Objective Vital Signs: Vital Signs Temperature 97.5 F L 05/26/17 09:16 Pulse Rate 71 05/26/17 09:16 Respiratory Rate 18 05/26/17 09:16 Blood Pressure 144/85 05/26/17 09:16 O2 Sat by Pulse Oximetry (%) 97 05/25/17 21:00 Constitutional: Yes: Calm Eyes: Yes: Conjunctiva Clear HENT: Yes: Atraumatic Neck: Yes: Supple Cardiovascular: Yes: S1, S2 Respiratory: Yes: CTA Bilaterally Gastrointestinal: Yes: Normal Bowel Sounds, Soft Genitourinary: Yes: WNL Musculoskeletal: Yes: WNL Edema: No Neurological: Yes: Oriented Psychiatric: Yes: Oriented Labs: CBC, BMP 05/26/17 07:45 05/26/17 07:45 INR, PTT INR 1.08 (0.82-1.09) 05/25/17 13:20 Fibrinogen 150.0 mg/dL (238-498) L 05/25/17 13:20 Problem List - Problems (1) Hemoptysis Code(s): R04.2 - HEMOPTYSIS (2) Acute kidney injury Code(s): N17.9 - ACUTE KIDNEY FAILURE, UNSPECIFIED Assessment/Plan Current Medications Generic Name Dose Route Start Last Admin Trade Name Freq PRN Reason Stop Dose Admin Albumin Human 87.5 gm 05/23/17 10:00 05/25/17 11:00 Plasbumin-5 - IVPB 05/27/17 10:01 Not Given Q2D [facility] Ascorbic Acid 500 mg 05/21/17 13:00 05/26/17 11:06 Vitamin C - PO 500 mg BID [facility] Administration Atovaquone 1,500 mg 05/16/17 08:00 05/26/17 08:31 Mepron - PO 1,500 mg DAILY@0800 [facility] Administration Calcium Carbonate/Cholecalciferol 2 tab 05/14/17 20:00 05/26/17 11:05 Os-Russ 500+D - PO 2 tab DAILY [facility] Administration Calcium Gluconate 1,000 mg 05/14/17 16:00 Calcium Gluconate 10% - IVPB ONCE PRN Collagenase 1 applic 05/12/17 17:00 05/25/17 09:39 Santyl - TP 1 applic DAILY [facility] Administration Diphenhydramine HCl 50 mg 05/23/17 10:15 Benadryl Injection - IVPB Q6H PRN FOR ITCHING Docusate Sodium 100 mg 05/11/17 22:00 05/26/17 11:06 Colace - PO 100 mg BID [facility] Administration Fluconazole 100 mg 05/21/17 15:30 05/26/17 11:05 Diflucan - PO 100 mg DAILY [facility] Administration Fluocinonide 1 applic 05/23/17 12:00 05/26/17 11:08 Lidex 0.05% Ointment - TP 1 applic DAILY [facility] Administration Heparin Sodium (Porcine) 5,000 unit 05/25/17 12:20 Heparin - IVPUSH PRN PRN Heparin flush for shiley caths Heparin Sodium (Porcine) 5,000 unit 05/26/17 10:00 05/26/17 11:05 Heparin - SQ 5,000 unit BID [facility] Administration Hydralazine HCl 25 mg 05/22/17 14:00 05/26/17 06:23 Apresoline - PO 25 mg TID [facility] Administration Insulin Aspart 1 vial 05/11/17 07:00 05/26/17 06:16 Novolog Vial Sliding Scale - SQ Not Given ACHS [facility] [place] Protocol Insulin Detemir 7 units 05/19/17 22:00 05/25/17 22:10 Levemir Vial SQ 7 units HS [facility] Administration Levothyroxine Sodium 100 mcg 05/11/17 07:00 05/26/17 06:23 Synthroid - PO 100 mcg DAILY@0700 [facility] Administration Nystatin 500,000 units 05/21/17 12:00 05/26/17 06:22 Nystatin Oral Suspension - PO 500,000 units Q6HPO [facility] Administration Pantoprazole Sodium 40 mg 05/11/17 13:00 05/26/17 11:05 Protonix - PO 40 mg DAILY [facility] Administration Prednisone 60 mg 05/13/17 10:00 05/26/17 11:06 Deltasone - PO 60 mg DAILY [facility] Administration Sodium Chloride 2 spray 05/22/17 09:24 [place] Nasal [place] - NS BID PRN NASAL CONGESTION Valacyclovir HCl 500 mg 05/11/17 10:00 05/26/17 11:06 Valtrex - PO 500 mg BID [facility] Administration Impression 1. MYRTLE 2. lower extremity ulcer 3. hypothyroid 4. HTN 5. polymyalgia 6. anemia 7. vasculitis microscopic polyangitis 8. thrombophlebitis 9. hemoptysis 10. thrush Plan - cont current meds - plasma exchange tomorrow - will repeat ua next week - will need flu shot as she has not gotten it - renal function has been stabilizing - will need rheum follow up Dr Hamilton
[2017-05-26] MEDS ORDERED: INSULIN (NOVOLOG) ASPART 100 UNITS/ML 10ML VIAL ONE (14:37)
--- NOTE | 2017-05-26 15:27 | PN ---
Physical Exam: SUBJECTIVE: Patient seen and examined OBJECTIVE: Potassium 3.2, has been repleted, awaiting repeat labs Vital Signs Period Temp Pulse Resp BP Sys/Horn Pulse Ox Last 24 Hr 97.5 F-98.4 F 62-74 18-18 136-156/60-85 97-97 ENERAL: The patient is awake, alert, and fully oriented, in no acute distress HEAD: Normal with no signs of trauma. EYES: PERRL, extraocular movements intact, sclera anicteric, conjunctiva clear. No ptosis. ENT: Ears normal, nares patent, oropharynx clear without exudates, moist mucous membranes. NECK: Trachea midline, full range of motion, supple. LUNGS: Breath sounds equal, clear to auscultation bilaterally, no wheezes, no crackles, no accessory muscle use. HEART: Regular rate and rhythm ABDOMEN: Soft, nontender, nondistended, normoactive bowel sounds, no guarding, no rebound, no hepatosplenomegaly, no masses. EXTREMITIES: 2+ pulses, warm, well-perfused, no edema. + right groin shiley catheter for plasmapheresis NEUROLOGICAL: Normal speech, gait not observed. PSYCH: Normal mood, normal affect. Laboratory Results - last 24 hr 05/25/17 05/25/17 05/26/17 16:30 21:13 06:06 WBC RBC Hgb Hct MCV MCH MCHC RDW Plt Count MPV Total Counted Neutrophils % Neutrophils % (Manual) Lymphocytes % Lymphocytes % (Manual) Monocytes % (Manual) Eosinophils % (Manual) Anisocytosis Microcytosis Fragmented RBCs Sodium Potassium Chloride Carbon Dioxide Anion Gap BUN Creatinine Creat Clearance w eGFR POC Glucometer 306 232 91 Random Glucose Calcium Magnesium Total Bilirubin AST ALT Alkaline Phosphatase Total Protein Albumin 05/26/17 05/26/17 05/26/17 07:45 07:45 14:31 WBC 8.7 RBC 2.84 L Hgb 8.8 L Hct 25.9 L MCV 90.9 MCH 30.8 MCHC 33.8 RDW 23.2 H Plt Count 172 MPV 8.0 Total Counted 100 Neutrophils % No Result Required. Neutrophils % (Manual) 68 D Lymphocytes % No Result Required. Lymphocytes % (Manual) 23 D Monocytes % (Manual) 8 D Eosinophils % (Manual) 1 Anisocytosis 3+ Microcytosis 1+ Fragmented RBCs 1+ Sodium 143 Potassium 3.2 L Chloride 107 Carbon Dioxide 27 Anion Gap 9 BUN 28 H Creatinine 1.7 H Creat Clearance w eGFR 29.22 POC Glucometer 281 Random Glucose 90 D Calcium 8.1 L Magnesium 2.1 D Total Bilirubin 0.6 AST 10 L ALT 21 Alkaline Phosphatase 48 Total Protein 5.6 L Albumin 3.9 Active Medications Generic Name Dose Route Start Last Admin Trade Name Freq PRN Reason Stop Dose Admin Albumin Human 87.5 gm 05/23/17 10:00 05/25/17 11:00 Plasbumin-5 - IVPB 05/27/17 10:01 Not Given Q2D [facility] Ascorbic Acid 500 mg 05/21/17 13:00 05/26/17 11:06 Vitamin C - PO 500 mg BID MILES Administration Atovaquone 1,500 mg 05/16/17 08:00 05/26/17 08:31 Mepron - PO 1,500 mg DAILY@0800 MILES Administration Calcium Carbonate/Cholecalciferol 2 tab 05/14/17 20:00 05/26/17 11:05 Os-Russ 500+D - PO 2 tab DAILY MILES Administration Calcium Gluconate 1,000 mg 05/14/17 16:00 Calcium Gluconate 10% - IVPB ONCE PRN Collagenase 1 applic 05/12/17 17:00 05/26/17 10:17 Santyl - TP 1 applic DAILY MILES Administration Diphenhydramine HCl 50 mg 05/23/17 10:15 Benadryl Injection - IVPB Q6H PRN FOR ITCHING Docusate Sodium 100 mg 05/11/17 22:00 05/26/17 11:06 Colace - PO 100 mg BID MILES Administration Fluconazole 100 mg 05/21/17 15:30 05/26/17 11:05 Diflucan - PO 100 mg DAILY MILES Administration Fluocinonide 1 applic 05/23/17 12:00 05/26/17 11:08 Lidex 0.05% Ointment - TP 1 applic DAILY MILES Administration Heparin Sodium (Porcine) 5,000 unit 05/25/17 12:20 Heparin - IVPUSH PRN PRN Heparin flush for shiley caths Heparin Sodium (Porcine) 5,000 unit 05/26/17 10:00 05/26/17 11:05 Heparin - SQ 5,000 unit BID MILES Administration Hydralazine HCl 25 mg 05/22/17 14:00 05/26/17 14:24 Apresoline - PO 25 mg TID MILES Administration Insulin Aspart 1 vial 05/11/17 07:00 05/26/17 14:39 Novolog Vial Sliding Scale - SQ 4 units ACHS MILES Administration Protocol Insulin Detemir 7 units 05/19/17 22:00 05/25/17 22:10 Levemir Vial SQ 7 units HS MILES Administration Levothyroxine Sodium 100 mcg 05/11/17 07:00 05/26/17 06:23 Synthroid - PO 100 mcg DAILY@0700 MILES Administration Nystatin 500,000 units 05/21/17 12:00 05/26/17 14:24 Nystatin Oral Suspension - PO 500,000 units Q6HPO MILES Administration Pantoprazole Sodium 40 mg 05/11/17 13:00 05/26/17 11:05 Protonix - PO 40 mg DAILY MILES Administration Prednisone 60 mg 05/13/17 10:00 05/26/17 11:06 Deltasone - PO 60 mg DAILY MILES Administration Sodium Chloride 2 spray 05/22/17 09:24 [place] Nasal [place] - NS BID PRN NASAL CONGESTION Valacyclovir HCl 500 mg 05/11/17 10:00 05/26/17 11:06 Valtrex - PO 500 mg BID MILES Administration ASSESSMENT/PLAN: Patient is an 77 year-old female with a significant past medical history of HTN , chronic venous stasis lower extremity ulcers, polymyaglia rheumatica, and hypothyroidism. She presents to the hospital on 05/10/17 with an isolated episode of hemoptysis. Patient was recently admitted here between 04/09 --> 04/29 for bilateral lower extremity cellulitis and MYRTLE. During last admission she was diagnosed with microscopic polyangitis and was getting outpatient Rituxan infusions and has received 3/4 doses. She was admitted on 05/11/2017 for hemoptysis. Her Rituxan therapy was stopped on admission an she will not be treated with 7 sessions of plasmapheresis for microscoic polyangitis (which began on 05/14 2017 via right groin shiley). Imaging: Vascular study 05/14/2017 shows thrombosis involving the right mid and distal grater saphenous vein consistent with superficial venous thromboses, no evidence of DVT on right or left lower ext. 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 She was on Rituxan weekly and has received 3/4 doses, she will now be getting plasma exchange which began on 05/14 Received 6 of 7 of plamapheresis today (every other day) Will likely need another dose of rituximab to complete course On Prednisone 60mg daily as per rheumatology On Valtrex BID, Started Mepron Hematology: Anemia of chronic disease, acute on chronic S/P 2 unit or prbc on this admission hmg/hct low, stable Thrombocytopenia, resolved Monitor labs Renal: Chronic Kidney Disease, acute on chronic Monitor creatinine Renal following Vascular: Chronic LE venous stasis ulcers, followed by vascular Wound care daily Vascular study 05/14/2017 shows thrombosis involving the right mid and distal grater saphenous vein consistent with superficial venous thromboses, no evidence of DVT on right or left lower ext. Heparin BID : UA +3 Leuk, Est, Ecoli Treated with Zosyn Endocrine: Hypothyroidism, chronic A/P: On home dose of Synthroid of 100mcgs Continue current dose Hyperglycemia, likely steroid induced A/p: Levemir daily, Novolog, BGMs F.E.N. Fluids: tolerating PO Electrolytes: Hypomag resolved Hypocalcemia corrected @ 8.2 on Calcium supplements BID Potassium, repleted, awaiting repeat labs Prophylaxis: DVT: ambulatory, heparin BID GI: Protonix while on steriods Dispo: full code. Visit type - Emergency Visit Emergency Visit: Yes ED Registration Date: 05/12/17 Care time: The patient presented to the Emergency Department on the above date and was hospitalized for further evaluation of their emergent condition. - New Patient This patient is new to me today: No - Critical Care Critical Care patient: No - Discharge Referral Referred to [facility] Med P.C.: No
--- NOTE | 2017-05-26 20:11 | PN ---
Progress Note (short form) - Note Progress Note: Patient seen and examined feels better. tolerated session well today denies any complains Last Vital Signs Temp Pulse Resp BP Pulse Ox 98.1 F 61 18 145/76 97 05/26/17 15:32 05/26/17 15:32 05/26/17 15:32 05/26/17 15:32 05/26/17 09:00 CBC, BMP 05/26/17 07:45 Current Medications Generic Name Dose Route Start Last Admin Trade Name Freq PRN Reason Stop Dose Admin Albumin Human 87.5 gm 05/23/17 10:00 05/25/17 11:00 Plasbumin-5 - IVPB 05/27/17 10:01 Not Given Q2D MILES Ascorbic Acid 500 mg 05/21/17 13:00 05/26/17 11:06 Vitamin C - PO 500 mg BID MILES Administration Atovaquone 1,500 mg 05/16/17 08:00 05/26/17 08:31 Mepron - PO 1,500 mg DAILY@0800 MILES Administration Calcium Carbonate/Cholecalciferol 2 tab 05/14/17 20:00 05/26/17 11:05 Os-Russ 500+D - PO 2 tab DAILY MILES Administration Calcium Gluconate 1,000 mg 05/14/17 16:00 Calcium Gluconate 10% - IVPB ONCE PRN Collagenase 1 applic 05/12/17 17:00 05/26/17 10:17 Santyl - TP 1 applic DAILY MILES Administration Diphenhydramine HCl 50 mg 05/23/17 10:15 Benadryl Injection - IVPB Q6H PRN FOR ITCHING Docusate Sodium 100 mg 05/11/17 22:00 05/26/17 11:06 Colace - PO 100 mg BID MILES Administration Fluconazole 100 mg 05/21/17 15:30 05/26/17 11:05 Diflucan - PO 100 mg DAILY MILES Administration Fluocinonide 1 applic 05/23/17 12:00 05/26/17 11:08 Lidex 0.05% Ointment - TP 1 applic DAILY MILES Administration Heparin Sodium (Porcine) 5,000 unit 05/25/17 12:20 Heparin - IVPUSH PRN PRN Heparin flush for shiley caths Heparin Sodium (Porcine) 5,000 unit 05/26/17 10:00 05/26/17 11:05 Heparin - SQ 5,000 unit BID MILES Administration Hydralazine HCl 25 mg 05/22/17 14:00 05/26/17 14:24 Apresoline - PO 25 mg TID MILES Administration Insulin Aspart 1 vial 05/11/17 07:00 05/26/17 18:18 Novolog Vial Sliding Scale - SQ 4 units ACHS MILES Administration Protocol Insulin Detemir 7 units 05/19/17 22:00 05/25/17 22:10 Levemir Vial SQ 7 units HS MILES Administration Levothyroxine Sodium 100 mcg 05/11/17 07:00 05/26/17 06:23 Synthroid - PO 100 mcg DAILY@0700 MILES Administration Nystatin 500,000 units 05/21/17 12:00 05/26/17 18:19 Nystatin Oral Suspension - PO 500,000 units Q6HPO MILES Administration Pantoprazole Sodium 40 mg 05/11/17 13:00 05/26/17 11:05 Protonix - PO 40 mg DAILY MILES Administration Prednisone 60 mg 05/13/17 10:00 05/26/17 11:06 Deltasone - PO 60 mg DAILY MILES Administration Sodium Chloride 2 spray 05/22/17 09:24 [place] Nasal [place] - NS BID PRN NASAL CONGESTION Valacyclovir HCl 500 mg 05/11/17 10:00 05/26/17 11:06 Valtrex - PO 500 mg BID MILES Administration Cor: RSR, No murmurs, No gallops Lungs: Clear to P&A Abd: Soft, Normal bowel sounds, No organomegaly Ext:No significant edema Skin: Rash: not visible lab/meds/chart/vitals reviewed A/P 77 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 tomorrow #01/25 plasmaexchange with plasma and albumin. 3.5 l exchange. Monitor PT /PTT/fibrinogen/CBC/Mg post pheresis and daily. monitor Crit Orders placed for tomorrow. Superficial vein thrombosis -- Rt. greater saphenous vein -- on heparin SC , Noted on 04/26 and 05/14, No change between 04/26 and 05/14. On heparin SC will be continued
[2017-05-26] MEDS: INSULIN DETEMIR 100 UNITS/ML MDV SQ SCH (22:46)
[2017-05-26] MEDS ORDERED: INSULIN DETEMIR 100 UNITS/ML MDV SQ ONE (22:55)
[2017-05-27] MEDS: NYSTATIN 500,000 UNITS/5 ML SUSPENSION PO SCH ×4 (01:00→19:02)
[2017-05-27] MEDS: hydrALAZINE HCL 25 MG TABLET (FP) PO SCH ×3 (06:03→22:30)
[2017-05-27] MEDS: INSULIN SLIDING SCALE (NOVOLOG) 1 VIAL SQ SCH ×4 (06:04→22:39)
[2017-05-27] MEDS: LEVOTHYROXINE NA 100 MCG TABLET (FP) PO SCH (07:28)
[2017-05-27 07:33] LABS: MCHC 34.1 g/dl (32.0-36.0); MEAN CELL VOLUME 91.1 fl (80-96); MEAN PLT VOLUME 8.2 fl (7.5-11.1); PLATELET COUNT 144 K/MM3 (134-434); RDW 23.5 % (11.6-15.6); WHITE BLOOD COUNT 7.5 K/mm3 (4.0-10.0)
[2017-05-27 08:19] LABS: ALBUMIN 3.4 g/dl (3.4-5.0); ALK PHOS 52 U/L (45-117); ANION GAP 10 (8-16); BILIRUBIN,TOTAL 0.5 mg/dL (0.2-1.0); CALCIUM 7.9 mg/dL (8.5-10.1); CO2 26 mmol/L (21-32); CREATININE 1.7 mg/dL (0.55-1.02); GLUCOSE,RANDOM 113 mg/dL (74-106); MAGNESIUM 1.9 mg/dL (1.8-2.4); SGOT/AST 10 U/L (15-37); SGPT/ALT 19 U/L (12-78)
[2017-05-27] MEDS: ATOVAQUONE 750 MG/5 ML (UNIT-DOSE PACKAGING) PO SCH (08:25)
[2017-05-27 09:09] LABS: PLATELET ESTIMATE ADEQUATE (NORMAL); TOTAL CELLS COUNTED 100
[2017-05-27] MEDS ORDERED: PT OWN MED DRAWER 7, Y5N ONE ×2 (09:18→17:19)
[2017-05-27] MEDS: ASCORBIC ACID 500 MG TABLET (FP) PO SCH ×2 (09:26→22:34)
[2017-05-27] MEDS: FLUCONAZOLE 100 MG TABLET (UD) PO SCH (09:26)
[2017-05-27] MEDS: DOCUSATE SODIUM 100 MG CAPSULE (FP) PO SCH ×2 (09:26→22:30)
[2017-05-27] MEDS: valACYclovir HCL 500 MG TABLET (FP) PO SCH ×2 (09:26→22:30)
[2017-05-27] MEDS: predniSONE 20 MG TABLET (UD) PO SCH (09:26)
[2017-05-27] MEDS: CALCIUM 500MG/VIT-D 200 UNITS COMBO TABLET (FP) PO SCH (09:26)
[2017-05-27] MEDS: HEPARIN NA (PORCINE) 5,000 UNITS/ML 1ML VIAL SQ SCH ×2 (09:27→22:30)
[2017-05-27] MEDS: PANTOPRAZOLE 40 MG TABLET (FP) PO SCH (09:27)
[2017-05-27] MEDS: COLLAGENASE CLOSTRIDIUM HIST. 30 GRAMS TUBE TP SCH (09:27)
[2017-05-27] MEDS: FLUOCINONIDE 0.05% TOP OINT (15 GM TUBE) TP SCH (09:28)
--- NOTE | 2017-05-27 12:16 | PN ---
Progress Note (short form) - Note Progress Note: Feels overall better. No CP or SOB. No hemoptysis. Plasmapheresis scheduled for today. Intake & Output 05/25/17 05/26/17 05/26/17 05/27/17 00:59 00:59 23:59 23:59 Intake Total Balance Last Vital Signs Temp Pulse Resp BP Pulse Ox 97.8 F 74 20 156/90 97 05/27/17 09:12 05/27/17 09:12 05/27/17 09:12 05/27/17 09:12 05/26/17 21:00 Active Medications Ascorbic Acid (Vitamin C -) 500 mg PO BID [facility] Last Admin: 05/27/17 09:26 Dose: 500 mg Atovaquone (Mepron -) 1,500 mg PO DAILY@0800 [facility] Last Admin: 05/27/17 08:25 Dose: 1,500 mg Calcium Carbonate/Cholecalciferol (Os-Russ 500+D -) 2 tab PO DAILY [facility] Last Admin: 05/27/17 09:26 Dose: 2 tab Calcium Gluconate (Calcium Gluconate 10% -) 1,000 mg IVPB ONCE PRN Collagenase (Santyl -) 1 applic TP DAILY [facility] Last Admin: 05/27/17 09:27 Dose: 1 applic Diphenhydramine HCl (Benadryl Injection -) 50 mg IVPB Q6H PRN PRN Reason: FOR ITCHING Docusate Sodium (Colace -) 100 mg PO BID [facility] Last Admin: 05/27/17 09:26 Dose: 100 mg Fluconazole (Diflucan -) 100 mg PO DAILY [facility] Last Admin: 05/27/17 09:26 Dose: 100 mg Fluocinonide (Lidex 0.05% Ointment -) 1 applic TP DAILY [facility] Last Admin: 05/27/17 09:28 Dose: 1 applic Heparin Sodium (Porcine) (Heparin -) 5,000 unit IVPUSH PRN PRN PRN Reason: Heparin flush for shiley caths Heparin Sodium (Porcine) (Heparin -) 5,000 unit SQ BID [facility] Last Admin: 05/27/17 09:27 Dose: 5,000 unit Hydralazine HCl (Apresoline -) 25 mg PO TID [facility] Last Admin: 05/27/17 06:03 Dose: 25 mg Insulin Aspart (Novolog Vial Sliding Scale -) 1 vial SQ ACHS [facility] PRN Reason: Protocol Last Admin: 05/27/17 11:49 Dose: Not Given Insulin Detemir (Levemir Vial) 7 units SQ HS [facility] Last Admin: 05/26/17 22:46 Dose: 7 units Levothyroxine Sodium (Synthroid -) 100 mcg PO DAILY@0700 [facility] Last Admin: 05/27/17 07:28 Dose: 100 mcg Nystatin (Nystatin Oral Suspension -) 500,000 units PO Q6HPO [facility] Last Admin: 05/27/17 12:10 Dose: 500,000 units Pantoprazole Sodium (Protonix -) 40 mg PO DAILY [facility] Last Admin: 05/27/17 09:27 Dose: 40 mg Prednisone (Deltasone -) 60 mg PO DAILY [facility] Last Admin: 05/27/17 09:26 Dose: 60 mg Sodium Chloride ([place] Nasal [place] -) 2 spray NS BID PRN PRN Reason: NASAL CONGESTION Valacyclovir HCl (Valtrex -) 500 mg PO BID [facility] Last Admin: 05/27/17 09:26 Dose: 500 mg Constitutional: Yes: NAD Eyes: Yes: WNL HENT: Yes: WNL Neck: Yes: Supple Cardiovascular: Yes: Regular Rate and Rhythm, S1, S2 Respiratory: Yes: few scattered rhonchi Extremities: Yes: WNL Peripheral Pulses WNL: No Labs: Laboratory Results - last 24 hr 05/14/17 05/18/17 05/26/17 10:00 09:00 14:31 WBC RBC Hgb Hct MCV MCH MCHC RDW Plt Count MPV Total Counted Neutrophils % Neutrophils % (Manual) Lymphocytes % Lymphocytes % (Manual) Monocytes % (Manual) Hypersegmented Neuts Hypochromia Toxic Granulation Dohle Bodies Platelet Estimate Polychromasia Poikilocytosis Basophilic Stippling Anisocytosis Microcytosis Macrocytosis Spherocytes Siderocytes Sickle Cells Target Cells Tear Drop Cells Ovalocytes Stomatocytes Helmet Cells [place] Bodies [place] Rings Nickie Cells Acanthocytes (Spur) Rouleaux Fragmented RBCs Schistocytes Morphology Comment Sodium Potassium Chloride Carbon Dioxide Anion Gap BUN Creatinine Creat Clearance w eGFR POC Glucometer 281 Random Glucose Calcium Magnesium Total Bilirubin AST ALT Alkaline Phosphatase Total Protein Albumin Blood Type O POSITIVE O POSITIVE Antibody Screen Negative Negative Crossmatch 05/26/17 05/26/17 05/26/17 14:45 18:17 22:40 WBC RBC Hgb Hct MCV MCH MCHC RDW Plt Count MPV Total Counted Neutrophils % Neutrophils % (Manual) Lymphocytes % Lymphocytes % (Manual) Monocytes % (Manual) Hypersegmented Neuts Hypochromia Toxic Granulation Dohle Bodies Platelet Estimate Polychromasia Poikilocytosis Basophilic Stippling Anisocytosis Microcytosis Macrocytosis Spherocytes Siderocytes Sickle Cells Target Cells Tear Drop Cells Ovalocytes Stomatocytes Helmet Cells [place] Bodies [place] Rings Nickie Cells Acanthocytes (Spur) Rouleaux Fragmented RBCs Schistocytes Morphology Comment Sodium Potassium 4.1 D Chloride Carbon Dioxide Anion Gap BUN Creatinine Creat Clearance w eGFR POC Glucometer 275 208 Random Glucose Calcium Magnesium Total Bilirubin AST ALT Alkaline Phosphatase Total Protein Albumin Blood Type Antibody Screen Crossmatch 05/27/17 05/27/17 05/27/17 05:54 06:10 06:10 WBC 7.5 RBC 2.49 L Hgb 7.7 L D Hct 22.7 L MCV 91.1 MCH 31.0 MCHC 34.1 RDW 23.5 H Plt Count 144 MPV 8.2 Total Counted 100 Neutrophils % No Result Required. Neutrophils % (Manual) 79 Lymphocytes % No Result Required. Lymphocytes % (Manual) 18 D Monocytes % (Manual) 3 L Hypersegmented Neuts Cancelled Hypochromia Cancelled Toxic Granulation Cancelled Dohle Bodies Cancelled Platelet Estimate Adequate Polychromasia Cancelled Poikilocytosis Cancelled Basophilic Stippling Cancelled Anisocytosis Cancelled Microcytosis Cancelled Macrocytosis Cancelled Spherocytes Cancelled Siderocytes Cancelled Sickle Cells Cancelled Target Cells Cancelled Tear Drop Cells Cancelled Ovalocytes Cancelled Stomatocytes Cancelled Helmet Cells Cancelled [place] Bodies Cancelled [place] Rings Cancelled Nickie Cells Cancelled Acanthocytes (Spur) Cancelled Rouleaux Cancelled Fragmented RBCs Cancelled Schistocytes Cancelled Morphology Comment Cancelled Sodium 142 Potassium 3.6 Chloride 106 Carbon Dioxide 26 Anion Gap 10 BUN 29 H Creatinine 1.7 H Creat Clearance w eGFR 29.22 POC Glucometer 129 Random Glucose 113 H D Calcium 7.9 L Magnesium 1.9 Total Bilirubin 0.5 AST 10 L ALT 19 Alkaline Phosphatase 52 Total Protein 5.0 L Albumin 3.4 Blood Type Antibody Screen Crossmatch 05/27/17 05/27/17 11:40 11:46 WBC RBC Hgb Hct MCV MCH MCHC RDW Plt Count MPV Total Counted Neutrophils % Neutrophils % (Manual) Lymphocytes % Lymphocytes % (Manual) Monocytes % (Manual) Hypersegmented Neuts Hypochromia Toxic Granulation Dohle Bodies Platelet Estimate Polychromasia Poikilocytosis Basophilic Stippling Anisocytosis Microcytosis Macrocytosis Spherocytes Siderocytes Sickle Cells Target Cells Tear Drop Cells Ovalocytes Stomatocytes Helmet Cells [place] Bodies [place] Rings [place] Cells Acanthocytes (Spur) Rouleaux Fragmented RBCs Schistocytes Morphology Comment Sodium Potassium Chloride Carbon Dioxide Anion Gap BUN Creatinine Creat Clearance w eGFR POC Glucometer 127 Random Glucose Calcium Magnesium Total Bilirubin AST ALT Alkaline Phosphatase Total Protein Albumin Blood Type Antibody Screen Crossmatch See Detail Problem List - Problems (1) Microscopic polyangiitis Code(s): M31.7 - MICROSCOPIC POLYANGIITIS (2) Bilateral pulmonary infiltrates on chest x-ray Code(s): R91.8 - OTHER NONSPECIFIC ABNORMAL FINDING OF LUNG FIELD (3) Hypertension Code(s): I10 - ESSENTIAL (PRIMARY) HYPERTENSION (4) Hypothyroid Code(s): E03.9 - HYPOTHYROIDISM, UNSPECIFIED (5) Vasculitis Code(s): I77.6 - ARTERITIS, UNSPECIFIED (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
--- NOTE | 2017-05-27 15:01 | PN ---
Progress Note, Physician History of Present Illness: Pt seen and examined at bedside. She is awake and alert. She denies shortness of breath. - Current Medication List Current Medications: Active Medications Ascorbic Acid (Vitamin C -) 500 mg PO BID [facility] Last Admin: 05/27/17 09:26 Dose: 500 mg Atovaquone (Mepron -) 1,500 mg PO DAILY@0800 [facility] Last Admin: 05/27/17 08:25 Dose: 1,500 mg Calcium Carbonate/Cholecalciferol (Os-Russ 500+D -) 2 tab PO DAILY [facility] Last Admin: 05/27/17 09:26 Dose: 2 tab Calcium Gluconate (Calcium Gluconate 10% -) 1,000 mg IVPB ONCE PRN Collagenase (Santyl -) 1 applic TP DAILY [facility] Last Admin: 05/27/17 09:27 Dose: 1 applic Diphenhydramine HCl (Benadryl Injection -) 50 mg IVPB Q6H PRN PRN Reason: FOR ITCHING Docusate Sodium (Colace -) 100 mg PO BID [facility] Last Admin: 05/27/17 09:26 Dose: 100 mg Fluconazole (Diflucan -) 100 mg PO DAILY [facility] Last Admin: 05/27/17 09:26 Dose: 100 mg Fluocinonide (Lidex 0.05% Ointment -) 1 applic TP DAILY [facility] Last Admin: 05/27/17 09:28 Dose: 1 applic Heparin Sodium (Porcine) (Heparin -) 5,000 unit IVPUSH PRN PRN PRN Reason: Heparin flush for shiley caths Heparin Sodium (Porcine) (Heparin -) 5,000 unit SQ BID [facility] Last Admin: 05/27/17 09:27 Dose: 5,000 unit Hydralazine HCl (Apresoline -) 25 mg PO TID [facility] Last Admin: 05/27/17 14:02 Dose: 25 mg Insulin Aspart (Novolog Vial Sliding Scale -) 1 vial SQ ACHS [facility] PRN Reason: Protocol Last Admin: 05/27/17 11:49 Dose: Not Given Insulin Detemir (Levemir Vial) 7 units SQ HS [facility] Last Admin: 05/26/17 22:46 Dose: 7 units Levothyroxine Sodium (Synthroid -) 100 mcg PO DAILY@0700 [facility] Last Admin: 05/27/17 07:28 Dose: 100 mcg Nystatin (Nystatin Oral Suspension -) 500,000 units PO Q6HPO [facility] Last Admin: 05/27/17 12:10 Dose: 500,000 units Pantoprazole Sodium (Protonix -) 40 mg PO DAILY [facility] Last Admin: 05/27/17 09:27 Dose: 40 mg Prednisone (Deltasone -) 60 mg PO DAILY [facility] Last Admin: 05/27/17 09:26 Dose: 60 mg Sodium Chloride ([place] Nasal [place] -) 2 spray NS BID PRN PRN Reason: NASAL CONGESTION Valacyclovir HCl (Valtrex -) 500 mg PO BID [facility] Last Admin: 05/27/17 09:26 Dose: 500 mg - Objective Vital Signs: Vital Signs Temperature 98.1 F 05/27/17 14:12 Pulse Rate 68 05/27/17 14:12 Respiratory Rate 20 05/27/17 14:12 Blood Pressure 154/90 05/27/17 14:12 O2 Sat by Pulse Oximetry (%) 97 05/26/17 21:00 Constitutional: Yes: Calm Eyes: Yes: Conjunctiva Clear HENT: Yes: Atraumatic Neck: Yes: Supple Cardiovascular: Yes: S1, S2 Respiratory: Yes: CTA Bilaterally Gastrointestinal: Yes: Normal Bowel Sounds, Soft Genitourinary: Yes: WNL Musculoskeletal: Yes: WNL Edema: No Wound/Incision: Yes: Dressing Dry and Intact Neurological: Yes: Oriented Psychiatric: Yes: Oriented Labs: CBC, BMP 05/27/17 06:10 05/27/17 06:10 INR, PTT INR 1.08 (0.82-1.09) 05/25/17 13:20 Fibrinogen 150.0 mg/dL (238-498) L 05/25/17 13:20 Problem List - Problems (1) Hemoptysis Code(s): R04.2 - HEMOPTYSIS (2) Acute kidney injury Code(s): N17.9 - ACUTE KIDNEY FAILURE, UNSPECIFIED Assessment/Plan Current Medications Generic Name Dose Route Start Last Admin Trade Name Freq PRN Reason Stop Dose Admin Ascorbic Acid 500 mg 05/21/17 13:00 05/27/17 09:26 Vitamin C - PO 500 mg BID [facility] Administration Atovaquone 1,500 mg 05/16/17 08:00 05/27/17 08:25 Mepron - PO 1,500 mg DAILY@0800 [facility] Administration Calcium Carbonate/Cholecalciferol 2 tab 05/14/17 20:00 05/27/17 09:26 Os-Russ 500+D - PO 2 tab DAILY [facility] Administration Calcium Gluconate 1,000 mg 05/14/17 16:00 Calcium Gluconate 10% - IVPB ONCE PRN Collagenase 1 applic 05/12/17 17:00 05/27/17 09:27 Santyl - TP 1 applic DAILY [facility] Administration Diphenhydramine HCl 50 mg 05/23/17 10:15 Benadryl Injection - IVPB Q6H PRN FOR ITCHING Docusate Sodium 100 mg 05/11/17 22:00 05/27/17 09:26 Colace - PO 100 mg BID [facility] Administration Fluconazole 100 mg 05/21/17 15:30 05/27/17 09:26 Diflucan - PO 100 mg DAILY [facility] Administration Fluocinonide 1 applic 05/23/17 12:00 05/27/17 09:28 Lidex 0.05% Ointment - TP 1 applic DAILY [facility] Administration Heparin Sodium (Porcine) 5,000 unit 05/25/17 12:20 Heparin - IVPUSH PRN PRN Heparin flush for shiley caths Heparin Sodium (Porcine) 5,000 unit 05/26/17 10:00 05/27/17 09:27 Heparin - SQ 5,000 unit BID [facility] Administration Hydralazine HCl 25 mg 05/22/17 14:00 05/27/17 14:02 Apresoline - PO 25 mg TID [facility] Administration Insulin Aspart 1 vial 05/11/17 07:00 05/27/17 11:49 Novolog Vial Sliding Scale - SQ Not Given [facility] Protocol Insulin Detemir 7 units 05/19/17 22:00 05/26/17 22:46 Levemir Vial SQ 7 units HS [facility] Administration Levothyroxine Sodium 100 mcg 05/11/17 07:00 05/27/17 07:28 Synthroid - PO 100 mcg DAILY@0700 [facility] Administration Nystatin 500,000 units 05/21/17 12:00 05/27/17 12:10 Nystatin Oral Suspension - PO 500,000 units Q6HPO [facility] Administration Pantoprazole Sodium 40 mg 05/11/17 13:00 05/27/17 09:27 Protonix - PO 40 mg DAILY [facility] Administration Prednisone 60 mg 05/13/17 10:00 05/27/17 09:26 Deltasone - PO 60 mg DAILY [facility] Administration Sodium Chloride 2 spray 05/22/17 09:24 [place] Nasal [place] - NS BID PRN NASAL CONGESTION Valacyclovir HCl 500 mg 05/11/17 10:00 05/27/17 09:26 Valtrex - PO 500 mg BID [facility] Administration Impression 1. MYRTLE 2. lower extremity ulcer 3. hypothyroid 4. HTN 5. polymyalgia 6. anemia 7. vasculitis microscopic polyangitis 8. thrombophlebitis 9. hemoptysis 10. thrush Plan - pt getting prbc transfusion - plasma exchange today - repeat ua - rheum follow up - renal function stabilizing Dr Hamilton
--- NOTE | 2017-05-27 16:00 | PN ---
Physical Exam: SUBJECTIVE: Patient seen and examined at the bedside. Denies any further episodes of hemoptysis, denies chest pain or shortness of breath. OBJECTIVE: Patient receiving 1 unit of blood today, then 01/25 plasmaphresis today Discharge planning Vital Signs Period Temp Pulse Resp BP Sys/Horn Pulse Ox Last 24 Hr 97.8 F-98.7 F 61-74 20-20 143-156/79-90 97 GENERAL: The patient is awake, alert, and fully oriented, in no acute distress HEAD: Normal with no signs of trauma. EYES: PERRL, extraocular movements intact, sclera anicteric, conjunctiva clear. No ptosis. ENT: Ears normal, nares patent, oropharynx clear without exudates, moist mucous membranes. NECK: Trachea midline, full range of motion, supple. LUNGS: Breath sounds equal, clear to auscultation bilaterally, no wheezes, no crackles, no accessory muscle use. HEART: Regular rate and rhythm ABDOMEN: Soft, nontender, nondistended, normoactive bowel sounds, no guarding, no rebound, no hepatosplenomegaly, no masses. EXTREMITIES: 2+ pulses, warm, well-perfused, no edema. + right groin shiley catheter for plasmapheresis NEUROLOGICAL: Normal speech, gait not observed. PSYCH: Normal mood, normal affect. Laboratory Results - last 24 hr 05/14/17 05/18/17 05/26/17 10:00 09:00 18:17 WBC RBC Hgb Hct MCV MCH MCHC RDW Plt Count MPV Total Counted Neutrophils % Neutrophils % (Manual) Lymphocytes % Lymphocytes % (Manual) Monocytes % (Manual) Hypersegmented Neuts Hypochromia Toxic Granulation Dohle Bodies Platelet Estimate Polychromasia Poikilocytosis Basophilic Stippling Anisocytosis Microcytosis Macrocytosis Spherocytes Siderocytes Sickle Cells Target Cells Tear Drop Cells Ovalocytes Stomatocytes Helmet Cells [place] Bodies [place] Rings [place] Cells Acanthocytes (Spur) Rouleaux Fragmented RBCs Schistocytes Morphology Comment Sodium Potassium Chloride Carbon Dioxide Anion Gap BUN Creatinine Creat Clearance w eGFR POC Glucometer 275 Random Glucose Calcium Magnesium Total Bilirubin AST ALT Alkaline Phosphatase Total Protein Albumin Blood Type O POSITIVE O POSITIVE Antibody Screen Negative Negative Crossmatch 05/26/17 05/27/17 05/27/17 22:40 05:54 06:10 WBC RBC Hgb Hct MCV MCH MCHC RDW Plt Count MPV Total Counted Neutrophils % Neutrophils % (Manual) Lymphocytes % Lymphocytes % (Manual) Monocytes % (Manual) Hypersegmented Neuts Hypochromia Toxic Granulation Dohle Bodies Platelet Estimate Polychromasia Poikilocytosis Basophilic Stippling Anisocytosis Microcytosis Macrocytosis Spherocytes Siderocytes Sickle Cells Target Cells Tear Drop Cells Ovalocytes Stomatocytes Helmet Cells [place] Bodies [place] Rings [place] Cells Acanthocytes (Spur) Rouleaux Fragmented RBCs Schistocytes Morphology Comment Sodium 142 Potassium 3.6 Chloride 106 Carbon Dioxide 26 Anion Gap 10 BUN 29 H Creatinine 1.7 H Creat Clearance w eGFR 29.22 POC Glucometer 208 129 Random Glucose 113 H D Calcium 7.9 L Magnesium 1.9 Total Bilirubin 0.5 AST 10 L ALT 19 Alkaline Phosphatase 52 Total Protein 5.0 L Albumin 3.4 Blood Type Antibody Screen Crossmatch 05/27/17 05/27/17 05/27/17 06:10 11:40 11:46 WBC 7.5 RBC 2.49 L Hgb 7.7 L D Hct 22.7 L MCV 91.1 MCH 31.0 MCHC 34.1 RDW 23.5 H Plt Count 144 MPV 8.2 Total Counted 100 Neutrophils % No Result Required. Neutrophils % (Manual) 79 Lymphocytes % No Result Required. Lymphocytes % (Manual) 18 D Monocytes % (Manual) 3 L Hypersegmented Neuts Cancelled Hypochromia Cancelled Toxic Granulation Cancelled Dohle Bodies Cancelled Platelet Estimate Adequate Polychromasia Cancelled Poikilocytosis Cancelled Basophilic Stippling Cancelled Anisocytosis Cancelled Microcytosis Cancelled Macrocytosis Cancelled Spherocytes Cancelled Siderocytes Cancelled Sickle Cells Cancelled Target Cells Cancelled Tear Drop Cells Cancelled Ovalocytes Cancelled Stomatocytes Cancelled Helmet Cells Cancelled [place] Bodies Cancelled [place] Rings Cancelled [place] Cells Cancelled Acanthocytes (Spur) Cancelled Rouleaux Cancelled Fragmented RBCs Cancelled Schistocytes Cancelled Morphology Comment Cancelled Sodium Potassium Chloride Carbon Dioxide Anion Gap BUN Creatinine Creat Clearance w eGFR POC Glucometer 127 Random Glucose Calcium Magnesium Total Bilirubin AST ALT Alkaline Phosphatase Total Protein Albumin Blood Type O POSITIVE Antibody Screen Negative Crossmatch See Detail Active Medications Generic Name Dose Route Start Last Admin Trade Name Freq PRN Reason Stop Dose Admin Ascorbic Acid 500 mg 05/21/17 13:00 05/27/17 09:26 Vitamin C - PO 500 mg BID [facility] Administration Atovaquone 1,500 mg 05/16/17 08:00 05/27/17 08:25 Mepron - PO 1,500 mg DAILY@0800 [facility] Administration Calcium Carbonate/Cholecalciferol 2 tab 05/14/17 20:00 05/27/17 09:26 Os-Russ 500+D - PO 2 tab DAILY [facility] Administration Calcium Gluconate 1,000 mg 05/14/17 16:00 Calcium Gluconate 10% - IVPB ONCE PRN Collagenase 1 applic 05/12/17 17:00 05/27/17 09:27 Santyl - TP 1 applic DAILY [facility] Administration Diphenhydramine HCl 50 mg 05/23/17 10:15 Benadryl Injection - IVPB Q6H PRN FOR ITCHING Docusate Sodium 100 mg 05/11/17 22:00 05/27/17 09:26 Colace - PO 100 mg BID [facility] Administration Fluconazole 100 mg 05/21/17 15:30 05/27/17 09:26 Diflucan - PO 100 mg DAILY [facility] Administration Fluocinonide 1 applic 05/23/17 12:00 05/27/17 09:28 Lidex 0.05% Ointment - TP 1 applic DAILY [facility] Administration Heparin Sodium (Porcine) 5,000 unit 05/25/17 12:20 Heparin - IVPUSH PRN PRN Heparin flush for shiley caths Heparin Sodium (Porcine) 5,000 unit 05/26/17 10:00 05/27/17 09:27 Heparin - SQ 5,000 unit BID [facility] Administration Hydralazine HCl 25 mg 05/22/17 14:00 05/27/17 14:02 Apresoline - PO 25 mg TID [facility] Administration Insulin Aspart 1 vial 05/11/17 07:00 05/27/17 11:49 Novolog Vial Sliding Scale - SQ Not Given [facility] Protocol Insulin Detemir 7 units 05/19/17 22:00 05/26/17 22:46 Levemir Vial SQ 7 units HS [facility] Administration Levothyroxine Sodium 100 mcg 05/11/17 07:00 05/27/17 07:28 Synthroid - PO 100 mcg DAILY@0700 [facility] Administration Nystatin 500,000 units 05/21/17 12:00 05/27/17 12:10 Nystatin Oral Suspension - PO 500,000 units Q6HPO [facility] Administration Pantoprazole Sodium 40 mg 05/11/17 13:00 05/27/17 09:27 Protonix - PO 40 mg DAILY [facility] Administration Prednisone 60 mg 05/13/17 10:00 05/27/17 09:26 Deltasone - PO 60 mg DAILY [facility] Administration Sodium Chloride 2 spray 05/22/17 09:24 [place] Nasal [place] - NS BID PRN NASAL CONGESTION Valacyclovir HCl 500 mg 05/11/17 10:00 05/27/17 09:26 Valtrex - PO 500 mg BID [facility] Administration ASSESSMENT/PLAN: Patient is an 77 year-old female with a significant past medical history of HTN , chronic venous stasis lower extremity ulcers, polymyaglia rheumatica, and hypothyroidism. She presents to the hospital on 05/10/17 with an isolated episode of hemoptysis. Patient was recently admitted here between 04/09 --> 04/29 for bilateral lower extremity cellulitis and MYRTLE. During that last admission , patient was diagnosed with microscopic polyangitis and was getting outpatient Rituxan infusions under the direction of Dr. Concepcion. She has received 3/4 doses of Rituxan. Imaging: Vascular study 05/14/2017 shows thrombosis involving the right mid and distal grater saphenous vein consistent with superficial venous thromboses, no evidence of DVT on right or left lower ext. 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 She was on Rituxan weekly and has received 3/4 doses, she will now be getting plasma exchange which began on 05/14 Will receive 7 of 7 of plamapheresis today via right groin shiley Will likely need another dose of rituximab to complete course On Prednisone 60mg daily as per rheumatology On Valtrex BID, On Mepron Pulmonary: Hemoptysis, acute on chronic, now resolved Likely secondary to microscopic polyangitis Lungs clear to auscultation Duonebs, Humidified oxygen Hematology: Anemia of chronic disease, acute on chronic hmg/hct low, for 1 unit of prbc today prior to plasmaphresis Thrombocytopenia, resolved Monitor labs Renal: Chronic Kidney Disease, acute on chronic Monitor creatinine, now @ 1.7 Vascular: Chronic LE venous stasis ulcers, followed by vascular Wound care daily Vascular study 05/14/2017 shows thrombosis involving the right mid and distal grater saphenous vein consistent with superficial venous thromboses, no evidence of DVT on right or left lower ext. Heparin BID : UA +3 Leuk, Est, Ecoli Treated with Zosyn, Zosyn stopped after pt had a drug rash reaction (now resolved) monitor off antibiotics Endocrine: Hypothyroidism, chronic A/P: On home dose of Synthroid of 100mcgs Continue current dose Hyperglycemia, likely steroid induced A/p: Levemir daily, Novolog, BGMs F.E.N. Fluids: tolerating PO Electrolytes: Hypomag resolved Hypocalcemia corrected @ 8.2 on Calcium supplements BID Potassium wnl. monitor Prophylaxis: DVT: ambulatory, heparin BID GI: Protonix while on steriods Dispo: full code. Visit type - Emergency Visit Emergency Visit: Yes ED Registration Date: 05/12/17 Care time: The patient presented to the Emergency Department on the above date and was hospitalized for further evaluation of their emergent condition. - New Patient This patient is new to me today: No - Critical Care Critical Care patient: No - Discharge Referral Referred to [facility] Med P.C.: No
[2017-05-27] MEDS: ALBUMIN HUMAN 5% 250 ML IV SOLUTION IVPB SCH (18:02)
--- NOTE | 2017-05-27 20:55 | PN ---
Progress Note (short form) - Note Progress Note: Patient seen and examined Feels well Denies any complaints s/p plasmapheresi# 01/25 AFVSS Cor: RSR, No murmurs, No gallops Lungs: Clear to P&A Abd: Soft, Normal bowel sounds, No organomegaly Ext:No significant edema labs/meds reviewed A/P 77 y/o patient with microscopic polyangiitis, with hemoptysis, renal impairment , s/p renal biopsy---04/22/17 s/p pulse steroids, rituxan---3 doses --last 05/08 Now comes in with recurrent hemoptysis, last over weekend, and active urinary sediment also with new onset thrombocytopenia CT ca/p--b/l pulmonary ground glass opacities, gall stones #01/25 plasmaexchange with plasma and albumin. 3.5 l exchange. Monitor PT/PTT/ fibrinogen/CBC/Mg post pheresis and daily thrombocytopenia --resolved Superficial vein thrombosis -- Rt. greater saphenous vein -- on heparin SC Noted on 04/26 and 05/14 No change between 04/26 and 05/14 On heparin SC repeat U/s prior to d/c
[2017-05-27 21:27] LABS: MCH 31.5 pg (25.7-33.7); MCHC 34.9 g/dl (32.0-36.0); MEAN CELL VOLUME 90.4 fl (80-96); MEAN PLT VOLUME 8.5 fl (7.5-11.1); PLATELET COUNT 160 K/MM3 (134-434); RDW 22.3 % (11.6-15.6)
[2017-05-27 22:15] LABS: ALBUMIN 4.2 g/dl (3.4-5.0); ALK PHOS 52 U/L (45-117); ANION GAP 12 (8-16); BILIRUBIN,TOTAL 0.8 mg/dL (0.2-1.0); CO2 25 mmol/L (21-32); CREATININE 1.6 mg/dL (0.55-1.02); GLUCOSE,RANDOM 220 mg/dL (74-106); MAGNESIUM 1.7 mg/dL (1.8-2.4); SGOT/AST 9 U/L (15-37); SGPT/ALT 23 U/L (12-78); TOT PROT 5.9 g/dl (6.4-8.2)
[2017-05-27] MEDS: INSULIN DETEMIR 100 UNITS/ML MDV SQ SCH (22:35)
[2017-05-28] MEDS: NYSTATIN 500,000 UNITS/5 ML SUSPENSION PO SCH ×4 (00:51→17:05)
[2017-05-28] MEDS: INSULIN SLIDING SCALE (NOVOLOG) 1 VIAL SQ SCH ×4 (06:45→22:10)
[2017-05-28] MEDS: hydrALAZINE HCL 25 MG TABLET (FP) PO SCH ×3 (06:45→22:10)
[2017-05-28] MEDS: LEVOTHYROXINE NA 100 MCG TABLET (FP) PO SCH (06:45)
[2017-05-28] MEDS ORDERED: PT OWN MED DRAWER 7, Y5N ONE (08:26)
[2017-05-28 08:33] LABS: MCH 31.2 pg (25.7-33.7); MCHC 34.5 g/dl (32.0-36.0); MEAN CELL VOLUME 90.5 fl (80-96); MEAN PLT VOLUME 8.5 fl (7.5-11.1); PLATELET COUNT 133 K/MM3 (134-434); RDW 21.9 % (11.6-15.6); WHITE BLOOD COUNT 7.4 K/mm3 (4.0-10.0)
[2017-05-28] MEDS: ATOVAQUONE 750 MG/5 ML (UNIT-DOSE PACKAGING) PO SCH (08:33)
[2017-05-28 09:57] LABS: ALBUMIN 3.4 g/dl (3.4-5.0); ALK PHOS 44 U/L (45-117); ANION GAP 8 (8-16); BILIRUBIN,TOTAL 0.6 mg/dL (0.2-1.0); CALCIUM 7.8 mg/dL (8.5-10.1); CO2 29 mmol/L (21-32); CREATININE 1.4 mg/dL (0.55-1.02); GLUCOSE,RANDOM 70 mg/dL (74-106); MAGNESIUM 1.9 mg/dL (1.8-2.4); SGOT/AST 10 U/L (15-37); SGPT/ALT 19 U/L (12-78)
[2017-05-28 10:26] LABS: METAMYELOCYTE 0 % (0-2); MYELOCYTE 2 % (0-2); REACTIVE LYMPHOCYTES 1 % (0-80); TOTAL CELLS COUNTED 100
[2017-05-28 10:28] LABS: PLATELET ESTIMATE DECREASED (NORMAL)
--- NOTE | 2017-05-28 10:37 | PROC ---
Procedure Note Procedure: right groin shiley removed and pressure held for 10 minutes. no bleeding and dry sterile gauze/tegaderm applied. Right lower ext dressing changed also, graulation at base. Santyl/xeroform and kerlex applied. D/w Dr Silvestre, pt to f/u next week in the office.
[2017-05-28] MEDS: predniSONE 20 MG TABLET (UD) PO SCH (11:29)
[2017-05-28] MEDS: DOCUSATE SODIUM 100 MG CAPSULE (FP) PO SCH ×2 (11:29→22:10)
[2017-05-28] MEDS: HEPARIN NA (PORCINE) 5,000 UNITS/ML 1ML VIAL SQ SCH ×2 (11:30→22:10)
[2017-05-28] MEDS: FLUCONAZOLE 100 MG TABLET (UD) PO SCH (11:30)
[2017-05-28] MEDS: CALCIUM 500MG/VIT-D 200 UNITS COMBO TABLET (FP) PO SCH (11:30)
[2017-05-28] MEDS: PANTOPRAZOLE 40 MG TABLET (FP) PO SCH (11:31)
[2017-05-28] MEDS: valACYclovir HCL 500 MG TABLET (FP) PO SCH ×2 (11:32→22:10)
[2017-05-28] MEDS: ASCORBIC ACID 500 MG TABLET (FP) PO SCH ×2 (11:33→22:10)
[2017-05-28] MEDS: COLLAGENASE CLOSTRIDIUM HIST. 30 GRAMS TUBE TP SCH (11:40)
[2017-05-28] MEDS: FLUOCINONIDE 0.05% TOP OINT (15 GM TUBE) TP SCH (11:40)
--- NOTE | 2017-05-28 12:58 | PN ---
Progress Note (short form) - Note Progress Note: No CP or SOB. No hemoptysis. Noted access was removed without incident. Intake & Output 05/26/17 05/26/17 05/27/17 05/28/17 00:59 23:59 23:59 23:59 Intake Total 1100 Balance 1100 Last Vital Signs Temp Pulse Resp BP Pulse Ox 98.2 F 64 20 145/64 97 05/28/17 06:16 05/28/17 06:16 05/28/17 06:16 05/28/17 06:16 05/27/17 21:00 Active Medications Ascorbic Acid (Vitamin C -) 500 mg PO BID [facility] Last Admin: 05/28/17 11:33 Dose: 500 mg Atovaquone (Mepron -) 1,500 mg PO DAILY@0800 [facility] Last Admin: 05/28/17 08:33 Dose: 1,500 mg Calcium Carbonate/Cholecalciferol (Os-Russ 500+D -) 2 tab PO DAILY [facility] Last Admin: 05/28/17 11:30 Dose: 2 tab Calcium Gluconate (Calcium Gluconate 10% -) 1,000 mg IVPB ONCE PRN Collagenase (Santyl -) 1 applic TP DAILY [facility] Last Admin: 05/28/17 11:40 Dose: 1 applic Diphenhydramine HCl (Benadryl Injection -) 50 mg IVPB Q6H PRN PRN Reason: FOR ITCHING Docusate Sodium (Colace -) 100 mg PO BID [facility] Last Admin: 05/28/17 11:29 Dose: 100 mg Fluconazole (Diflucan -) 100 mg PO DAILY [facility] Last Admin: 05/28/17 11:30 Dose: 100 mg Fluocinonide (Lidex 0.05% Ointment -) 1 applic TP DAILY [facility] Last Admin: 05/28/17 11:40 Dose: 1 applic Heparin Sodium (Porcine) (Heparin -) 5,000 unit IVPUSH PRN PRN PRN Reason: Heparin flush for shiley caths Heparin Sodium (Porcine) (Heparin -) 5,000 unit SQ BID [facility] Last Admin: 05/28/17 11:30 Dose: 5,000 unit Hydralazine HCl (Apresoline -) 25 mg PO TID [facility] Last Admin: 05/28/17 06:45 Dose: 25 mg Insulin Aspart (Novolog Vial Sliding Scale -) 1 vial SQ ACHS [facility] PRN Reason: Protocol Last Admin: 05/28/17 11:50 Dose: Not Given Insulin Detemir (Levemir Vial) 7 units SQ HS [facility] Last Admin: 05/27/17 22:35 Dose: 7 units Levothyroxine Sodium (Synthroid -) 100 mcg PO DAILY@0700 [facility] Last Admin: 05/28/17 06:45 Dose: 100 mcg Nystatin (Nystatin Oral Suspension -) 500,000 units PO Q6HPO [facility] Last Admin: 05/28/17 11:55 Dose: 500,000 units Pantoprazole Sodium (Protonix -) 40 mg PO DAILY [facility] Last Admin: 05/28/17 11:31 Dose: 40 mg Prednisone (Deltasone -) 60 mg PO DAILY [facility] Last Admin: 05/28/17 11:29 Dose: 60 mg Sodium Chloride ([place] Nasal [place] -) 2 spray NS BID PRN PRN Reason: NASAL CONGESTION Valacyclovir HCl (Valtrex -) 500 mg PO BID [facility] Last Admin: 05/28/17 11:32 Dose: 500 mg Constitutional: Yes: NAD Eyes: Yes: WNL HENT: Yes: WNL Neck: Yes: Supple Cardiovascular: Yes: Regular Rate and Rhythm, S1, S2 Respiratory: Yes: Clear Extremities: Yes: WNL Peripheral Pulses WNL: No Labs: Laboratory Results - last 24 hr 05/27/17 05/27/17 05/27/17 11:40 20:40 20:40 WBC 8.0 RBC 2.98 L Hgb 9.4 L D Hct 26.9 L D MCV 90.4 MCH 31.5 MCHC 34.9 RDW 22.3 H Plt Count 160 MPV 8.5 Total Counted Neutrophils % Neutrophils % (Manual) Band Neuts % (Manual) Lymphocytes % Lymphocytes % (Manual) Monocytes % (Manual) Myelocytes % (Man) Platelet Estimate PTT (Actin FS) Fibrinogen Sodium 142 Potassium 3.8 Chloride 105 Carbon Dioxide 25 Anion Gap 12 BUN 27 H Creatinine 1.6 H Creat Clearance w eGFR 31.34 POC Glucometer Random Glucose 220 H D Calcium 8.0 L Magnesium 1.7 L Total Bilirubin 0.8 D AST 9 L ALT 23 D Alkaline Phosphatase 52 Total Protein 5.9 L Albumin 4.2 D Blood Type O POSITIVE Antibody Screen Negative Crossmatch See Detail 05/27/17 05/27/1717 21:00 21:00 22:33 WBC RBC Hgb Hct MCV MCH MCHC RDW Plt Count MPV Total Counted Neutrophils % Neutrophils % (Manual) Band Neuts % (Manual) Lymphocytes % Lymphocytes % (Manual) Monocytes % (Manual) Myelocytes % (Man) Platelet Estimate PTT (Actin FS) 30.1 D Fibrinogen 170.0 L Sodium Potassium Chloride Carbon Dioxide Anion Gap BUN Creatinine Creat Clearance w eGFR POC Glucometer 247 Random Glucose Calcium Magnesium Total Bilirubin AST ALT Alkaline Phosphatase Total Protein Albumin Blood Type Antibody Screen Crossmatch 05/28/17 05/28/17 05/28/17 06:45 07:30 07:30 WBC 7.4 RBC 2.71 L Hgb 8.5 L Hct 24.6 L MCV 90.5 MCH 31.2 MCHC 34.5 RDW 21.9 H Plt Count 133 L MPV 8.5 Total Counted 100 Neutrophils % No Result Required. Neutrophils % (Manual) 74 Band Neuts % (Manual) 2 D Lymphocytes % No Result Required. Lymphocytes % (Manual) 16 Monocytes % (Manual) 6 D Myelocytes % (Man) 2 Platelet Estimate Decreased PTT (Actin FS) Fibrinogen Sodium 145 Potassium 3.4 L Chloride 108 H Carbon Dioxide 29 Anion Gap 8 BUN 28 H Creatinine 1.4 H Creat Clearance w eGFR 36.56 POC Glucometer 81 Random Glucose 70 L D Calcium 7.8 L Magnesium 1.9 Total Bilirubin 0.6 D AST 10 L ALT 19 Alkaline Phosphatase 44 L Total Protein 5.0 L Albumin 3.4 Blood Type Antibody Screen Crossmatch 05/28/17 11:38 WBC RBC Hgb Hct MCV MCH MCHC RDW Plt Count MPV Total Counted Neutrophils % Neutrophils % (Manual) Band Neuts % (Manual) Lymphocytes % Lymphocytes % (Manual) Monocytes % (Manual) Myelocytes % (Man) Platelet Estimate PTT (Actin FS) Fibrinogen Sodium Potassium Chloride Carbon Dioxide Anion Gap BUN Creatinine Creat Clearance w eGFR POC Glucometer 105 Random Glucose Calcium Magnesium Total Bilirubin AST ALT Alkaline Phosphatase Total Protein Albumin Blood Type Antibody Screen Crossmatch Problem List - Problems (1) Microscopic polyangiitis Code(s): M31.7 - MICROSCOPIC POLYANGIITIS (2) Bilateral pulmonary infiltrates on chest x-ray Code(s): R91.8 - OTHER NONSPECIFIC ABNORMAL FINDING OF LUNG FIELD (3) Hypertension Code(s): I10 - ESSENTIAL (PRIMARY) HYPERTENSION (4) Hypothyroid Code(s): E03.9 - HYPOTHYROIDISM, UNSPECIFIED (5) Vasculitis Code(s): I77.6 - ARTERITIS, UNSPECIFIED (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
--- NOTE | 2017-05-28 15:31 | PN ---
Physical Exam: SUBJECTIVE: Patient seen and examined at the bedside, she is eager to go home. OBJECTIVE: Completed plasmapheresis 01/25 doses yesterday, right groin shiley removed today. Vital Signs Period Temp Pulse Resp BP Sys/Horn Pulse Ox Last 24 Hr 97.5 F-98.4 F 64-74 18-20 134-157/64-92 97 GENERAL: The patient is awake, alert, and fully oriented, in no acute distress HEAD: Normal with no signs of trauma. EYES: PERRL, extraocular movements intact, sclera anicteric, conjunctiva clear. No ptosis. ENT: Ears normal, nares patent, oropharynx clear without exudates, moist mucous membranes. NECK: Trachea midline, full range of motion, supple. LUNGS: Breath sounds equal, clear to auscultation bilaterally, no wheezes, no crackles, no accessory muscle use. HEART: Regular rate and rhythm ABDOMEN: Soft, nontender, nondistended, normoactive bowel sounds, no guarding, no rebound, no hepatosplenomegaly, no masses. EXTREMITIES: 2+ pulses, warm, well-perfused, no edema. NEUROLOGICAL: Normal speech, gait not observed. PSYCH: Normal mood, normal affect. Laboratory Results - last 24 hr 05/14/17 05/18/17 05/27/17 10:00 09:00 11:40 WBC RBC Hgb Hct MCV MCH MCHC RDW Plt Count MPV Total Counted Neutrophils % Neutrophils % (Manual) Band Neuts % (Manual) Lymphocytes % Lymphocytes % (Manual) Monocytes % (Manual) Myelocytes % (Man) Platelet Estimate PTT (Actin FS) Fibrinogen Sodium Potassium Chloride Carbon Dioxide Anion Gap BUN Creatinine Creat Clearance w eGFR POC Glucometer Random Glucose Calcium Magnesium Total Bilirubin AST ALT Alkaline Phosphatase Total Protein Albumin Blood Type O POSITIVE O POSITIVE O POSITIVE Antibody Screen Negative Negative Negative 05/27/17 05/27/17 05/27/17 20:40 20:40 21:00 WBC 8.0 RBC 2.98 L Hgb 9.4 L D Hct 26.9 L D MCV 90.4 MCH 31.5 MCHC 34.9 RDW 22.3 H Plt Count 160 MPV 8.5 Total Counted Neutrophils % Neutrophils % (Manual) Band Neuts % (Manual) Lymphocytes % Lymphocytes % (Manual) Monocytes % (Manual) Myelocytes % (Man) Platelet Estimate PTT (Actin FS) 30.1 D Fibrinogen Sodium 142 Potassium 3.8 Chloride 105 Carbon Dioxide 25 Anion Gap 12 BUN 27 H Creatinine 1.6 H Creat Clearance w eGFR 31.34 POC Glucometer Random Glucose 220 H D Calcium 8.0 L Magnesium 1.7 L Total Bilirubin 0.8 D AST 9 L ALT 23 D Alkaline Phosphatase 52 Total Protein 5.9 L Albumin 4.2 D Blood Type Antibody Screen 05/27/17 05/27/17 05/28/17 21:00 22:33 06:45 WBC RBC Hgb Hct MCV MCH MCHC RDW Plt Count MPV Total Counted Neutrophils % Neutrophils % (Manual) Band Neuts % (Manual) Lymphocytes % Lymphocytes % (Manual) Monocytes % (Manual) Myelocytes % (Man) Platelet Estimate PTT (Actin FS) Fibrinogen 170.0 L Sodium Potassium Chloride Carbon Dioxide Anion Gap BUN Creatinine Creat Clearance w eGFR POC Glucometer 247 81 Random Glucose Calcium Magnesium Total Bilirubin AST ALT Alkaline Phosphatase Total Protein Albumin Blood Type Antibody Screen 05/28/17 05/28/17 05/28/17 07:30 07:30 11:38 WBC 7.4 RBC 2.71 L Hgb 8.5 L Hct 24.6 L MCV 90.5 MCH 31.2 MCHC 34.5 RDW 21.9 H Plt Count 133 L MPV 8.5 Total Counted 100 Neutrophils % No Result Required. Neutrophils % (Manual) 74 Band Neuts % (Manual) 2 D Lymphocytes % No Result Required. Lymphocytes % (Manual) 16 Monocytes % (Manual) 6 D Myelocytes % (Man) 2 Platelet Estimate Decreased PTT (Actin FS) Fibrinogen Sodium 145 Potassium 3.4 L Chloride 108 H Carbon Dioxide 29 Anion Gap 8 BUN 28 H Creatinine 1.4 H Creat Clearance w eGFR 36.56 POC Glucometer 105 Random Glucose 70 L D Calcium 7.8 L Magnesium 1.9 Total Bilirubin 0.6 D AST 10 L ALT 19 Alkaline Phosphatase 44 L Total Protein 5.0 L Albumin 3.4 Blood Type Antibody Screen Active Medications Generic Name Dose Route Start Last Admin Trade Name Freq PRN Reason Stop Dose Admin Ascorbic Acid 500 mg 05/21/17 13:00 05/28/17 11:33 Vitamin C - PO 500 mg BID MILES Administration Atovaquone 1,500 mg 05/16/17 08:00 05/28/17 08:33 Mepron - PO 1,500 mg DAILY@0800 MILES Administration Calcium Carbonate/Cholecalciferol 2 tab 05/14/17 20:00 05/28/17 11:30 Os-Russ 500+D - PO 2 tab DAILY MILES Administration Calcium Gluconate 1,000 mg 05/14/17 16:00 Calcium Gluconate 10% - IVPB ONCE PRN Collagenase 1 applic 05/12/17 17:00 05/28/17 11:40 Santyl - TP 1 applic DAILY MILES Administration Diphenhydramine HCl 50 mg 05/23/17 10:15 Benadryl Injection - IVPB Q6H PRN FOR ITCHING Docusate Sodium 100 mg 05/11/17 22:00 05/28/17 11:29 Colace - PO 100 mg BID MILES Administration Fluocinonide 1 applic 05/23/17 12:00 05/28/17 11:40 Lidex 0.05% Ointment - TP 1 applic DAILY MILES Administration Heparin Sodium (Porcine) 5,000 unit 05/25/17 12:20 Heparin - IVPUSH PRN PRN Heparin flush for shiley caths Heparin Sodium (Porcine) 5,000 unit 05/26/17 10:00 05/28/17 11:30 Heparin - SQ 5,000 unit BID MILES Administration Hydralazine HCl 25 mg 05/22/17 14:00 05/28/17 06:45 Apresoline - PO 25 mg TID MILES Administration Insulin Aspart 1 vial 05/11/17 07:00 05/28/17 11:50 Novolog Vial Sliding Scale - SQ Not Given ACHS [facility] Protocol Insulin Detemir 7 units 05/19/17 22:00 05/27/17 22:35 Levemir Vial SQ 7 units HS MILES Administration Levothyroxine Sodium 100 mcg 05/11/17 07:00 05/28/17 06:45 Synthroid - PO 100 mcg DAILY@0700 MILES Administration Nystatin 500,000 units 05/21/17 12:00 05/28/17 11:55 Nystatin Oral Suspension - PO 500,000 units Q6HPO MILES Administration Pantoprazole Sodium 40 mg 05/11/17 13:00 05/28/17 11:31 Protonix - PO 40 mg DAILY MILES Administration Prednisone 60 mg 05/13/17 10:00 05/28/17 11:29 Deltasone - PO 60 mg DAILY MILES Administration Sodium Chloride 2 spray 05/22/17 09:24 [place] Nasal [place] - NS BID PRN NASAL CONGESTION Valacyclovir HCl 500 mg 05/11/17 10:00 05/28/17 11:32 Valtrex - PO 500 mg BID MILES Administration ASSESSMENT/PLAN: Patient is an 77 year-old female with a significant past medical history of HTN , chronic venous stasis lower extremity ulcers, polymyaglia rheumatica, and hypothyroidism. She presents to the hospital on 05/10/17 with an isolated episode of hemoptysis. Patient was recently admitted here between 04/09 --> 04/29 for bilateral lower extremity cellulitis and MYRTLE. During that last admission , patient was diagnosed with microscopic polyangitis and was getting outpatient Rituxan infusions under the direction of Dr. Concepcion. She has received 3/4 doses of Rituxan. Imaging: Vascular study 05/14/2017 shows thrombosis involving the right mid and distal grater saphenous vein consistent with superficial venous thromboses, no evidence of DVT on right or left lower ext. 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 She will be getting her last dose of Rituxan on in the infusion center , then will be discharged home On Prednisone 60mg daily as per rheumatology On Valtrex BID, On Mepron Pulmonary: Hemoptysis, acute on chronic, resolved Likely secondary to microscopic polyangitis Lungs clear to auscultation Duonebs, Humidified oxygen Hematology: Anemia of chronic disease, acute on chronic hmg/hct low stable, monitor Thrombocytopenia, resolved Renal: Chronic Kidney Disease, acute on chronic Monitor creatinine, now @ 1.4 Vascular: Chronic LE venous stasis ulcers, followed by vascular Vascular study 05/14/2017 shows thrombosis involving the right mid and distal grater saphenous vein consistent with superficial venous thromboses, no evidence of DVT on right or left lower ext. Vascular study repeated today, unchanged Heparin BID : UA +3 Leuk, Est, Ecoli Treated with Zosyn, Zosyn stopped after pt had a drug rash reaction (now resolved) monitor off antibiotics Endocrine: Hypothyroidism, chronic A/P: On home dose of Synthroid of 100mcgs Continue current dose Hyperglycemia, likely steroid induced A/p: Levemir daily, Novolog, BGMs F.E.N. Fluids: tolerating PO Electrolytes: Hypomag resolved Hypocalcemia corrected @ 8.4 on Calcium supplements BID Potassium 3.3, 40meq K x 1 ordered Prophylaxis: DVT: ambulatory, heparin BID GI: Protonix while on steriods Dispo: full code. Discharge likely on after Rituxan infusion. Visit type - Emergency Visit Emergency Visit: Yes ED Registration Date: 05/12/17 Care time: The patient presented to the Emergency Department on the above date and was hospitalized for further evaluation of their emergent condition. - New Patient This patient is new to me today: No - Critical Care Critical Care patient: No - Discharge Referral Referred to [facility] Med P.C.: No
--- NOTE | 2017-05-28 15:51 | PN ---
Progress Note, Physician History of Present Illness: Pt seen and examined at bedside. She is awake and alert. She says she feels better. She denies hemoptysis. - Current Medication List Current Medications: Active Medications Ascorbic Acid (Vitamin C -) 500 mg PO BID [facility] Last Admin: 05/28/17 11:33 Dose: 500 mg Atovaquone (Mepron -) 1,500 mg PO DAILY@0800 [facility] Last Admin: 05/28/17 08:33 Dose: 1,500 mg Calcium Carbonate/Cholecalciferol (Os-Russ 500+D -) 2 tab PO DAILY [facility] Last Admin: 05/28/17 11:30 Dose: 2 tab Calcium Gluconate (Calcium Gluconate 10% -) 1,000 mg IVPB ONCE PRN Collagenase (Santyl -) 1 applic TP DAILY [facility] Last Admin: 05/28/17 11:40 Dose: 1 applic Diphenhydramine HCl (Benadryl Injection -) 50 mg IVPB Q6H PRN PRN Reason: FOR ITCHING Docusate Sodium (Colace -) 100 mg PO BID [facility] Last Admin: 05/28/17 11:29 Dose: 100 mg Fluocinonide (Lidex 0.05% Ointment -) 1 applic TP DAILY [facility] Last Admin: 05/28/17 11:40 Dose: 1 applic Heparin Sodium (Porcine) (Heparin -) 5,000 unit IVPUSH PRN PRN PRN Reason: Heparin flush for shiley caths Heparin Sodium (Porcine) (Heparin -) 5,000 unit SQ BID [facility] Last Admin: 05/28/17 11:30 Dose: 5,000 unit Hydralazine HCl (Apresoline -) 25 mg PO TID [facility] Last Admin: 05/28/17 06:45 Dose: 25 mg Insulin Aspart (Novolog Vial Sliding Scale -) 1 vial SQ ACHS [facility] PRN Reason: Protocol Last Admin: 05/28/17 11:50 Dose: Not Given Insulin Detemir (Levemir Vial) 7 units SQ HS [facility] Last Admin: 05/27/17 22:35 Dose: 7 units Levothyroxine Sodium (Synthroid -) 100 mcg PO DAILY@0700 [facility] Last Admin: 05/28/17 06:45 Dose: 100 mcg Nystatin (Nystatin Oral Suspension -) 500,000 units PO Q6HPO [facility] Last Admin: 05/28/17 11:55 Dose: 500,000 units Pantoprazole Sodium (Protonix -) 40 mg PO DAILY [facility] Last Admin: 05/28/17 11:31 Dose: 40 mg Prednisone (Deltasone -) 60 mg PO DAILY [facility] Last Admin: 05/28/17 11:29 Dose: 60 mg Sodium Chloride ([place] Nasal Jerome -) 2 spray NS BID PRN PRN Reason: NASAL CONGESTION Valacyclovir HCl (Valtrex -) 500 mg PO BID [facility] Last Admin: 05/28/17 11:32 Dose: 500 mg - Objective Vital Signs: Vital Signs Temperature 97.5 F L 05/28/17 14:00 Pulse Rate 70 05/28/17 14:00 Respiratory Rate 18 05/28/17 14:00 Blood Pressure 144/92 05/28/17 14:00 O2 Sat by Pulse Oximetry (%) 97 05/27/17 21:00 Constitutional: Yes: Calm Eyes: Yes: Conjunctiva Clear HENT: Yes: Atraumatic Neck: Yes: Supple Cardiovascular: Yes: S1, S2 Respiratory: Yes: CTA Bilaterally Gastrointestinal: Yes: Soft Genitourinary: Yes: WNL Musculoskeletal: Yes: WNL Edema: No Neurological: Yes: Oriented Psychiatric: Yes: Oriented Labs: CBC, BMP 05/28/17 07:30 05/28/17 07:30 INR, PTT INR 1.08 (0.82-1.09) 05/25/17 13:20 Fibrinogen 170.0 mg/dL (238-498) L 05/27/17 21:00 Problem List - Problems (1) Hemoptysis Code(s): R04.2 - HEMOPTYSIS (2) Acute kidney injury Code(s): N17.9 - ACUTE KIDNEY FAILURE, UNSPECIFIED Assessment/Plan Current Medications Generic Name Dose Route Start Last Admin Trade Name Freq PRN Reason Stop Dose Admin Ascorbic Acid 500 mg 05/21/17 13:00 05/28/17 11:33 Vitamin C - PO 500 mg BID MILES Administration Atovaquone 1,500 mg 05/16/17 08:00 05/28/17 08:33 Mepron - PO 1,500 mg DAILY@0800 MILES Administration Calcium Carbonate/Cholecalciferol 2 tab 05/14/17 20:00 05/28/17 11:30 Os-Russ 500+D - PO 2 tab DAILY MILES Administration Calcium Gluconate 1,000 mg 05/14/17 16:00 Calcium Gluconate 10% - IVPB ONCE PRN Collagenase 1 applic 05/12/17 17:00 05/28/17 11:40 Santyl - TP 1 applic DAILY MILES Administration Diphenhydramine HCl 50 mg 05/23/17 10:15 Benadryl Injection - IVPB Q6H PRN FOR ITCHING Docusate Sodium 100 mg 05/11/17 22:00 05/28/17 11:29 Colace - PO 100 mg BID MILES Administration Fluocinonide 1 applic 05/23/17 12:00 05/28/17 11:40 Lidex 0.05% Ointment - TP 1 applic DAILY MILES Administration Heparin Sodium (Porcine) 5,000 unit 05/25/17 12:20 Heparin - IVPUSH PRN PRN Heparin flush for shiley caths Heparin Sodium (Porcine) 5,000 unit 05/26/17 10:00 05/28/17 11:30 Heparin - SQ 5,000 unit BID MILES Administration Hydralazine HCl 25 mg 05/22/17 14:00 05/28/17 06:45 Apresoline - PO 25 mg TID MILES Administration Insulin Aspart 1 vial 05/11/17 07:00 05/28/17 11:50 Novolog Vial Sliding Scale - SQ Not Given [facility] Protocol Insulin Detemir 7 units 05/19/17 22:00 05/27/17 22:35 Levemir Vial SQ 7 units HS MILES Administration Levothyroxine Sodium 100 mcg 05/11/17 07:00 05/28/17 06:45 Synthroid - PO 100 mcg DAILY@0700 MILES Administration Nystatin 500,000 units 05/21/17 12:00 05/28/17 11:55 Nystatin Oral Suspension - PO 500,000 units Q6HPO MILES Administration Pantoprazole Sodium 40 mg 05/11/17 13:00 05/28/17 11:31 Protonix - PO 40 mg DAILY MILES Administration Prednisone 60 mg 05/13/17 10:00 05/28/17 11:29 Deltasone - PO 60 mg DAILY MILES Administration Sodium Chloride 2 spray 05/22/17 09:24 [place] Jerome Nasal Jerome - NS BID PRN NASAL CONGESTION Valacyclovir HCl 500 mg 05/11/17 10:00 05/28/17 11:32 Valtrex - PO 500 mg BID MILES Administration Impression 1. MYRTLE 2. lower extremity ulcer 3. hypothyroid 4. HTN 5. polymyalgia 6. anemia 7. vasculitis microscopic polyangitis 8. thrombophlebitis 9. hemoptysis 10. thrush Plan - renal function is improving - repeat ua - plasma exchange complete - next rituximab on - rheum follow up Dr Hamilton
[2017-05-28] MEDS ORDERED: POTASSIUM CHLORIDE TABS 20 MEQ TABLET.ER (FP) PO ONE (17:37)
[2017-05-28] MEDS: INSULIN DETEMIR 100 UNITS/ML MDV SQ SCH (22:09)
[2017-05-29] MEDS: NYSTATIN 500,000 UNITS/5 ML SUSPENSION PO SCH ×3 (00:16→17:58)
[2017-05-29 07:58] LABS: ACTIVATED PTT 43.9 SECONDS (26.9-34.4)
[2017-05-29 07:59] LABS: INR 0.99 (0.82-1.09); PROTHROMBIN TIME (PATIENT) 11.2 SEC (9.98-11.88)
[2017-05-29] MEDS: ATOVAQUONE 750 MG/5 ML (UNIT-DOSE PACKAGING) PO SCH (08:00)
[2017-05-29 08:28] LABS: MCH 31.6 pg (25.7-33.7); MCHC 34.7 g/dl (32.0-36.0); MEAN PLT VOLUME 8.6 fl (7.5-11.1); PLATELET COUNT 126 K/MM3 (134-434); RDW 22.8 % (11.6-15.6); WHITE BLOOD COUNT 7.3 K/mm3 (4.0-10.0)
--- NOTE | 2017-05-29 09:16 | PN ---
Progress Note (short form) - Note Progress Note: currently asymptomatic. denies CP, SOB, fever, chills, N/V/C/D, melena, BRBPR, hemoptysis Current Medications Generic Name Dose Route Start Last Admin Trade Name Julioq PRN Reason Stop Dose Admin Ascorbic Acid 500 mg 05/21/17 13:00 05/28/17 22:10 Vitamin C - PO 500 mg BID MILES Administration Atovaquone 1,500 mg 05/16/17 08:00 05/28/17 08:33 Mepron - PO 1,500 mg DAILY@0800 MILES Administration Calcium Carbonate/Cholecalciferol 2 tab 05/14/17 20:00 05/28/17 11:30 Os-Russ 500+D - PO 2 tab DAILY MILES Administration Calcium Gluconate 1,000 mg 05/14/17 16:00 Calcium Gluconate 10% - IVPB ONCE PRN Collagenase 1 applic 05/12/17 17:00 05/28/17 11:40 Santyl - TP 1 applic DAILY MILES Administration Diphenhydramine HCl 50 mg 05/23/17 10:15 Benadryl Injection - IVPB Q6H PRN FOR ITCHING Docusate Sodium 100 mg 05/11/17 22:00 05/28/17 22:10 Colace - PO 100 mg BID MILES Administration Fluocinonide 1 applic 05/23/17 12:00 05/28/17 11:40 Lidex 0.05% Ointment - TP 1 applic DAILY MILES Administration Heparin Sodium (Porcine) 5,000 unit 05/25/17 12:20 Heparin - IVPUSH PRN PRN Heparin flush for shiley caths Heparin Sodium (Porcine) 5,000 unit 05/26/17 10:00 05/28/17 22:10 Heparin - SQ 5,000 unit BID MILES Administration Hydralazine HCl 25 mg 05/22/17 14:00 05/28/17 22:10 Apresoline - PO 25 mg TID MILES Administration Insulin Aspart 1 vial 05/11/17 07:00 05/28/17 22:10 Novolog Vial Sliding Scale - SQ 6 units ACHS MILES Administration Protocol Insulin Detemir 7 units 05/19/17 22:00 05/28/17 22:09 Levemir Vial SQ 7 units HS MILES Administration Levothyroxine Sodium 100 mcg 05/11/17 07:00 05/28/17 06:45 Synthroid - PO 100 mcg DAILY@0700 MILES Administration Nystatin 500,000 units 05/21/17 12:00 05/29/17 00:16 Nystatin Oral Suspension - PO 500,000 units Q6HPO MILES Administration Pantoprazole Sodium 40 mg 05/11/17 13:00 05/28/17 11:31 Protonix - PO 40 mg DAILY MILES Administration Prednisone 60 mg 05/13/17 10:00 05/28/17 11:29 Deltasone - PO 60 mg DAILY MILES Administration Sodium Chloride 2 spray 05/22/17 09:24 [place] Nasal [place] - NS BID PRN NASAL CONGESTION Valacyclovir HCl 500 mg 05/11/17 10:00 05/28/17 22:10 Valtrex - PO 500 mg BID MILES Administration Last Vital Signs Temp Pulse Resp BP Pulse Ox 98.1 F 62 20 136/64 98 05/29/17 02:11 05/29/17 02:11 05/29/17 02:11 05/29/17 02:11 05/28/17 21:00 General NAD CV S1 S2 RRR no murmur/rub/gallop Lungs CTA B/L no wheezing/ralesr/rhonchi Abdomen soft NT/ND Extremities no pedal edema, R groin with no bleeding noted, non tender no hematoma A&P 77 year-old female with a significant past medical history of HTN, chronic venous stasis lower extremity ulcers, polymyaglia rheumatica, and hypothyroidism. She presents to the hospital on 05/10/17 with an isolated episode of hemoptysis. Patient was recently admitted here between 04/09 --> 04/29 for bilateral lower extremity cellulitis and MYRTLE. During that last admission , patient was diagnosed with microscopic polyangitis and was getting outpatient Rituxan infusions under the direction of Dr. Concepcion. She has received 3/4 doses of Rituxan. 1. Microscopic polyangitis, diagnosed on last admission (04/09/2017 to 04/29/2017) - started on Rituxan and received 3/4 doses so far. s/p plasmapharesis which completed yesterday. on pred 60mg. plan for 4th and final dose of Rituxin tomorrow. will need rheum f/u as outpatient 2. Anemia of chronic disease- no signs of bleeding. s/p 3 PRBC this admission. will repeat hgb this afternoon and txn if hgb <7. 3. thrombocytopenia- resolved 4. Hemopytsis- resolved 5. Acute on CKD- Cr improving. awating todays labs. nephrology on board 6. superficial DVT- no indication for treatment 7. 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 HTN- controlled. cont medication 10. DVT ppx- Hep sq 11. planning d/c in the AM Visit type - Emergency Visit Emergency Visit: Yes ED Registration Date: 05/12/17 Care time: The patient presented to the Emergency Department on the above date and was hospitalized for further evaluation of their emergent condition. - New Patient This patient is new to me today: Yes Date on this admission: 05/29/17 - Critical Care Critical Care patient: No - Discharge Referral Referred to [facility] Med P.C.: No
[2017-05-29 09:35] LABS: ALBUMIN 3.2 g/dl (3.4-5.0); ALK PHOS 50 U/L (45-117); ANION GAP 11 (8-16); BILIRUBIN,TOTAL 0.4 mg/dL (0.2-1.0); CALCIUM 7.8 mg/dL (8.5-10.1); CO2 25 mmol/L (21-32); CREATININE 1.4 mg/dL (0.55-1.02); GLUCOSE,RANDOM 92 mg/dL (74-106); SGOT/AST 7 U/L (15-37); SGPT/ALT 17 U/L (12-78); TOT PROT 4.9 g/dl (6.4-8.2)
[2017-05-29] MEDS ORDERED: PT OWN MED DRAWER 7, Y5N ONE ×3 (10:09→21:31)
[2017-05-29] MEDS: valACYclovir HCL 500 MG TABLET (FP) PO SCH ×2 (10:15→22:49)
[2017-05-29] MEDS: ASCORBIC ACID 500 MG TABLET (FP) PO SCH ×2 (10:15→22:49)
[2017-05-29] MEDS: CALCIUM 500MG/VIT-D 200 UNITS COMBO TABLET (FP) PO SCH (10:15)
[2017-05-29] MEDS: DOCUSATE SODIUM 100 MG CAPSULE (FP) PO SCH ×2 (10:15→22:49)
[2017-05-29] MEDS: predniSONE 20 MG TABLET (UD) PO SCH (10:15)
[2017-05-29] MEDS: HEPARIN NA (PORCINE) 5,000 UNITS/ML 1ML VIAL SQ SCH ×2 (10:16→22:49)
[2017-05-29] MEDS: PANTOPRAZOLE 40 MG TABLET (FP) PO SCH (10:16)
[2017-05-29] MEDS: FLUOCINONIDE 0.05% TOP OINT (15 GM TUBE) TP SCH (10:19)
[2017-05-29] MEDS: COLLAGENASE CLOSTRIDIUM HIST. 30 GRAMS TUBE TP SCH (10:19)
[2017-05-29] MEDS: INSULIN SLIDING SCALE (NOVOLOG) 1 VIAL SQ SCH ×3 (12:14→22:50)
--- NOTE | 2017-05-29 12:25 | PN ---
Progress Note, Physician History of Present Illness: Pt seen and examined at bedside. She is awake and alert. She denies cough. - Current Medication List Current Medications: Active Medications Ascorbic Acid (Vitamin C -) 500 mg PO BID [facility] Last Admin: 05/29/17 10:15 Dose: 500 mg Atovaquone (Mepron -) 1,500 mg PO DAILY@0800 [facility] Last Admin: 05/29/17 08:00 Dose: 1,500 mg Calcium Carbonate/Cholecalciferol (Os-Russ 500+D -) 2 tab PO DAILY [facility] Last Admin: 05/29/17 10:15 Dose: 2 tab Calcium Gluconate (Calcium Gluconate 10% -) 1,000 mg IVPB ONCE PRN Collagenase (Santyl -) 1 applic TP DAILY [facility] Last Admin: 05/29/17 10:19 Dose: 1 applic Diphenhydramine HCl (Benadryl Injection -) 50 mg IVPB Q6H PRN PRN Reason: FOR ITCHING Docusate Sodium (Colace -) 100 mg PO BID [facility] Last Admin: 05/29/17 10:15 Dose: 100 mg Fluocinonide (Lidex 0.05% Ointment -) 1 applic TP DAILY [facility] Last Admin: 05/29/17 10:19 Dose: 1 applic Heparin Sodium (Porcine) (Heparin -) 5,000 unit IVPUSH PRN PRN PRN Reason: Heparin flush for shiley caths Heparin Sodium (Porcine) (Heparin -) 5,000 unit SQ BID [facility] Last Admin: 05/29/17 10:16 Dose: 5,000 unit Hydralazine HCl (Apresoline -) 25 mg PO TID [facility] Last Admin: 05/28/17 22:10 Dose: 25 mg Insulin Aspart (Novolog Vial Sliding Scale -) 1 vial SQ ACHS [facility] PRN Reason: Protocol Last Admin: 05/29/17 12:14 Dose: Not Given Insulin Detemir (Levemir Vial) 7 units SQ HS [facility] Last Admin: 05/28/17 22:09 Dose: 7 units Levothyroxine Sodium (Synthroid -) 100 mcg PO DAILY@0700 [facility] Last Admin: 05/28/17 06:45 Dose: 100 mcg Nystatin (Nystatin Oral Suspension -) 500,000 units PO Q6HPO [facility] Last Admin: 05/29/17 12:21 Dose: 500,000 units Pantoprazole Sodium (Protonix -) 40 mg PO DAILY [facility] Last Admin: 05/29/17 10:16 Dose: 40 mg Prednisone (Deltasone -) 60 mg PO DAILY [facility] Last Admin: 05/29/17 10:15 Dose: 60 mg Sodium Chloride ([place] Nasal [place] -) 2 spray NS BID PRN PRN Reason: NASAL CONGESTION Valacyclovir HCl (Valtrex -) 500 mg PO BID [facility] Last Admin: 05/29/17 10:15 Dose: 500 mg - Objective Vital Signs: Vital Signs Temperature 98.1 F 05/29/17 02:11 Pulse Rate 62 05/29/17 02:11 Respiratory Rate 20 05/29/17 02:11 Blood Pressure 136/64 05/29/17 02:11 O2 Sat by Pulse Oximetry (%) 98 05/28/17 21:00 Constitutional: Yes: Calm Eyes: Yes: Conjunctiva Clear HENT: Yes: Atraumatic Neck: Yes: Supple Cardiovascular: Yes: S1, S2 Respiratory: Yes: CTA Bilaterally Gastrointestinal: Yes: Soft Genitourinary: Yes: WNL Musculoskeletal: Yes: WNL Edema: Yes Edema: LLE: Trace, RLE: Trace Neurological: Yes: Oriented Psychiatric: Yes: Oriented Labs: CBC, BMP 05/29/17 06:20 05/29/17 06:20 INR, PTT INR 0.99 (0.82-1.09) 05/29/17 06:20 Fibrinogen 164.0 mg/dL (238-498) L 05/29/17 06:20 Problem List - Problems (1) Acute kidney injury Code(s): N17.9 - ACUTE KIDNEY FAILURE, UNSPECIFIED (2) Hemoptysis Code(s): R04.2 - HEMOPTYSIS Assessment/Plan Current Medications Generic Name Dose Route Start Last Admin Trade Name Freq PRN Reason Stop Dose Admin Ascorbic Acid 500 mg 05/21/17 13:00 05/29/17 10:15 Vitamin C - PO 500 mg BID [facility] Administration Atovaquone 1,500 mg 05/16/17 08:00 05/29/17 08:00 Mepron - PO 1,500 mg DAILY@0800 [facility] Administration Calcium Carbonate/Cholecalciferol 2 tab 05/14/17 20:00 05/29/17 10:15 Os-Russ 500+D - PO 2 tab DAILY [facility] Administration Calcium Gluconate 1,000 mg 05/14/17 16:00 Calcium Gluconate 10% - IVPB ONCE PRN Collagenase 1 applic 05/12/17 17:00 05/29/17 10:19 Santyl - TP 1 applic DAILY [facility] Administration Diphenhydramine HCl 50 mg 05/23/17 10:15 Benadryl Injection - IVPB Q6H PRN FOR ITCHING Docusate Sodium 100 mg 05/11/17 22:00 05/29/17 10:15 Colace - PO 100 mg BID [facility] Administration Fluocinonide 1 applic 05/23/17 12:00 05/29/17 10:19 Lidex 0.05% Ointment - TP 1 applic DAILY [facility] Administration Heparin Sodium (Porcine) 5,000 unit 05/25/17 12:20 Heparin - IVPUSH PRN PRN Heparin flush for shiley caths Heparin Sodium (Porcine) 5,000 unit 05/26/17 10:00 05/29/17 10:16 Heparin - SQ 5,000 unit BID [facility] Administration Hydralazine HCl 25 mg 05/22/17 14:00 05/28/17 22:10 Apresoline - PO 25 mg TID [facility] Administration Insulin Aspart 1 vial 05/11/17 07:00 05/29/17 12:14 Novolog Vial Sliding Scale - SQ Not Given [facility] Protocol Insulin Detemir 7 units 05/19/17 22:00 05/28/17 22:09 Levemir Vial SQ 7 units HS [facility] Administration Levothyroxine Sodium 100 mcg 05/11/17 07:00 05/28/17 06:45 Synthroid - PO 100 mcg DAILY@0700 [facility] Administration Nystatin 500,000 units 05/21/17 12:00 05/29/17 12:21 Nystatin Oral Suspension - PO 500,000 units Q6HPO [facility] Administration Pantoprazole Sodium 40 mg 05/11/17 13:00 05/29/17 10:16 Protonix - PO 40 mg DAILY [facility] Administration Prednisone 60 mg 05/13/17 10:00 05/29/17 10:15 Deltasone - PO 60 mg DAILY [facility] Administration Sodium Chloride 2 spray 05/22/17 09:24 [place] Nasal [place] - NS BID PRN NASAL CONGESTION Valacyclovir HCl 500 mg 05/11/17 10:00 05/29/17 10:15 Valtrex - PO 500 mg BID [facility] Administration Impression 1. MYRTLE 2. lower extremity ulcer 3. hypothyroid 4. HTN 5. polymyalgia 6. anemia 7. vasculitis microscopic polyangitis 8. thrombophlebitis 9. hemoptysis 10. thrush Plan - renal function continues to stabilize - last ritux dose in am - discussed with rheum - will see in office - plasma exchange complete - follow up repeat ua Dr Hamilton
[2017-05-29 12:37] LABS: MYELOCYTE 3 % (0-2); REACTIVE LYMPHOCYTES 3 % (0-80); TOTAL CELLS COUNTED 100
[2017-05-29 12:38] LABS: ANISOCYTOSIS 2+; MICROCYTOSIS 2+
[2017-05-29 13:51] LABS: MCH 31.7 pg (25.7-33.7); MCHC 34.4 g/dl (32.0-36.0); MEAN PLT VOLUME 8.5 fl (7.5-11.1); PLATELET COUNT 153 K/MM3 (134-434); RDW 22.8 % (11.6-15.6); WHITE BLOOD COUNT 9.1 K/mm3 (4.0-10.0)
[2017-05-29] MEDS: hydrALAZINE HCL 25 MG TABLET (FP) PO SCH ×2 (14:00→22:49)
--- NOTE | 2017-05-29 14:01 | PN ---
Progress Note (short form) - Note Progress Note: Patient seen and examined feels better. Sitting in chair denies any complains O/E: NAD NCAT CTA b/l Abdomen benign LE: L>R. (chronic) Last Vital Signs Temp Pulse Resp BP Pulse Ox 98.1 F 62 20 136/64 98 05/29/17 02:11 05/29/17 02:11 05/29/17 02:11 05/29/17 02:11 05/28/17 21:00 CBC, BMP 05/29/17 06:20 Current Medications Generic Name Dose Route Start Last Admin Trade Name Freq PRN Reason Stop Dose Admin Ascorbic Acid 500 mg 05/21/17 13:00 05/29/17 10:15 Vitamin C - PO 500 mg BID [facility] Administration Atovaquone 1,500 mg 05/16/17 08:00 05/29/17 08:00 Mepron - PO 1,500 mg DAILY@0800 [facility] Administration Calcium Carbonate/Cholecalciferol 2 tab 05/14/17 20:00 05/29/17 10:15 Os-Russ 500+D - PO 2 tab DAILY [facility] Administration Calcium Gluconate 1,000 mg 05/14/17 16:00 Calcium Gluconate 10% - IVPB ONCE PRN Collagenase 1 applic 05/12/17 17:00 05/29/17 10:19 Santyl - TP 1 applic DAILY [facility] Administration Diphenhydramine HCl 50 mg 05/23/17 10:15 Benadryl Injection - IVPB Q6H PRN FOR ITCHING Docusate Sodium 100 mg 05/11/17 22:00 05/29/17 10:15 Colace - PO 100 mg BID [facility] Administration Fluocinonide 1 applic 05/23/17 12:00 05/29/17 10:19 Lidex 0.05% Ointment - TP 1 applic DAILY [facility] Administration Heparin Sodium (Porcine) 5,000 unit 05/25/17 12:20 Heparin - IVPUSH PRN PRN Heparin flush for shiley caths Heparin Sodium (Porcine) 5,000 unit 05/26/17 10:00 05/29/17 10:16 Heparin - SQ 5,000 unit BID [facility] Administration Hydralazine HCl 25 mg 05/22/17 14:00 05/28/17 22:10 Apresoline - PO 25 mg TID [facility] Administration Insulin Aspart 1 vial 05/11/17 07:00 05/29/17 12:14 Novolog Vial Sliding Scale - SQ Not Given ACHS [facility] Protocol Insulin Detemir 7 units 05/19/17 22:00 05/28/17 22:09 Levemir Vial SQ 7 units HS [facility] Administration Levothyroxine Sodium 100 mcg 05/11/17 07:00 05/28/17 06:45 Synthroid - PO 100 mcg DAILY@0700 [facility] Administration Nystatin 500,000 units 05/21/17 12:00 05/29/17 12:21 Nystatin Oral Suspension - PO 500,000 units Q6HPO [facility] Administration Pantoprazole Sodium 40 mg 05/11/17 13:00 05/29/17 10:16 Protonix - PO 40 mg DAILY [facility] Administration Prednisone 60 mg 05/13/17 10:00 05/29/17 10:15 Deltasone - PO 60 mg DAILY [facility] Administration Sodium Chloride 2 spray 05/22/17 09:24 [place] Nasal [place] - NS BID PRN NASAL CONGESTION Valacyclovir HCl 500 mg 05/11/17 10:00 05/29/17 10:15 Valtrex - PO 500 mg BID [facility] Administration Cor: RSR, No murmurs, No gallops Lungs: Clear to P&A Abd: Soft, Normal bowel sounds, No organomegaly Ext:No significant edema Skin: Rash: not visible lab/meds/chart/vitals reviewed A/P Polyangitis: on dex, s/p PLEX 7 sessions , for rituxan as per rheum tomorrow ( Oncology Nursing aware, will be moved to 7W tonight) Renal involvment : Improved ACI: stable Superficial Thrombophlebitis: US reviewed thrombocytopenia :resolved , likely post procedural
--- NOTE | 2017-05-29 16:03 | PN ---
Progress Note (short form) - Note Progress Note: PULMONARY SITTING IN CHAIR/OFFERS NO COMPLAINTS NO FURTHER HEMOPTYSIS SINCE ADMISSION HGB/PLTS ARE STABLE VSS/AFEBRILE ANICTERIC SCATTERED MINIMAL EXP RHONCHI POSTERIOR S1S2 BS+ B/L KOWER EXT ULCERS BANDAGED LABS/MEDS/NOTES/IMAGES/MICRO REVIEWED (1) Hemoptysis Code(s): R04.2 - HEMOPTYSIS (2) Acute kidney injury Code(s): N17.9 - ACUTE KIDNEY FAILURE, UNSPECIFIED (3) Bilateral pulmonary infiltrates on chest x-ray Code(s): R91.8 - OTHER NONSPECIFIC ABNORMAL FINDING OF LUNG FIELD Assessment/Plan CONTINUE PREDNISONE/ BRONCHODILATORS/O2 TO KEEP SAT GREATER THAN 90% MONITOR HGB/PLTS/HEMOPTYSIS OUTPATIENT PLASMAPHARESIS TOLERATED WELL Nisa MAYS MD Problem List - Problems (1) Acute kidney injury Code(s): N17.9 - ACUTE KIDNEY FAILURE, UNSPECIFIED (2) Bilateral pulmonary infiltrates on chest x-ray Code(s): R91.8 - OTHER NONSPECIFIC ABNORMAL FINDING OF LUNG FIELD (3) Hemoptysis Code(s): R04.2 - HEMOPTYSIS
[2017-05-29] MEDS: INSULIN DETEMIR 100 UNITS/ML MDV SQ SCH (22:49)
[2017-05-30] MEDS: NYSTATIN 500,000 UNITS/5 ML SUSPENSION PO SCH ×4 (00:55→13:55)
[2017-05-30] MEDS: hydrALAZINE HCL 25 MG TABLET (FP) PO SCH ×3 (06:33→13:53)
[2017-05-30] MEDS: INSULIN SLIDING SCALE (NOVOLOG) 1 VIAL SQ SCH ×4 (06:33→17:29)
[2017-05-30] MEDS: LEVOTHYROXINE NA 100 MCG TABLET (FP) PO SCH ×2 (06:34→08:42)
[2017-05-30] MEDS: ATOVAQUONE 750 MG/5 ML (UNIT-DOSE PACKAGING) PO SCH (08:00)
[2017-05-30] MEDS: MULTIVITAMINS (DAILY MVI) TABLET (FP) PO SCH ×2 (08:00→09:57)
[2017-05-30] MEDS ORDERED: PT OWN MED DRAWER 7, Y5N ONE (08:45)
[2017-05-30] MEDS: predniSONE 20 MG TABLET (UD) PO SCH (09:29)
[2017-05-30] MEDS: valACYclovir HCL 500 MG TABLET (FP) PO SCH (09:29)
[2017-05-30] MEDS: HEPARIN NA (PORCINE) 5,000 UNITS/ML 1ML VIAL SQ SCH (09:29)
[2017-05-30] MEDS: CALCIUM 500MG/VIT-D 200 UNITS COMBO TABLET (FP) PO SCH (09:29)
[2017-05-30] MEDS: DOCUSATE SODIUM 100 MG CAPSULE (FP) PO SCH (09:30)
[2017-05-30] MEDS: PANTOPRAZOLE 40 MG TABLET (FP) PO SCH (09:30)
[2017-05-30] MEDS: ASCORBIC ACID 500 MG TABLET (FP) PO SCH (09:30)
[2017-05-30] MEDS: COLLAGENASE CLOSTRIDIUM HIST. 30 GRAMS TUBE TP SCH (09:40)
[2017-05-30] MEDS: FLUOCINONIDE 0.05% TOP OINT (15 GM TUBE) TP SCH (09:41)
[2017-05-30] MEDS ORDERED: ACETAMINOPHEN 500 MG TABLET (FP) PO ONE (10:00)
[2017-05-30] MEDS ORDERED: methylPREDNISolone NA SUCC 125 MG/2 ML VIAL IVPB ONE (10:00)
[2017-05-30] MEDS ORDERED: diphenhydrAMINE HCL 25 MG CAPSULE (FP) PO ONE (10:00)
[2017-05-30] MEDS ORDERED: RITUXIMAB IVPB ONE ×2 (10:30)
[2017-05-30] MEDS ORDERED: DEXTROSE 5% IVPB ONE ×2 (10:30)
[2017-05-30] MEDS ORDERED: WATER IVPB ONE ×2 (10:30)
--- NOTE | 2017-05-30 11:10 | PN ---
Progress Note (short form) - Note Progress Note: No CP or SOB. No hemoptysis. Feels overall better. Intake & Output 05/27/17 05/28/17 05/29/17 05/30/17 23:59 23:59 23:59 23:59 Intake Total 2297 779 4784 0 Balance 8127 278 0456 0 Last Vital Signs Temp Pulse Resp BP Pulse Ox 98.2 F 68 20 158/81 99 05/30/17 09:00 05/30/17 09:00 05/30/17 09:00 05/30/17 09:00 05/30/17 09:00 Active Medications Ascorbic Acid (Vitamin C -) 500 mg PO BID [facility] Last Admin: 05/30/17 09:30 Dose: 500 mg Atovaquone (Mepron -) 1,500 mg PO DAILY@0800 [facility] Last Admin: 05/30/17 08:00 Dose: 1,500 mg Calcium Carbonate/Cholecalciferol (Os-Russ 500+D -) 2 tab PO DAILY [facility] Last Admin: 05/30/17 09:29 Dose: 2 tab Calcium Gluconate (Calcium Gluconate 10% -) 1,000 mg IVPB ONCE PRN Collagenase (Santyl -) 1 applic TP DAILY [facility] Last Admin: 05/30/17 09:40 Dose: 1 applic Diphenhydramine HCl (Benadryl Injection -) 50 mg IVPB Q6H PRN PRN Reason: FOR ITCHING Docusate Sodium (Colace -) 100 mg PO BID [facility] Last Admin: 05/30/17 09:30 Dose: 100 mg Fluocinonide (Lidex 0.05% Ointment -) 1 applic TP DAILY [facility] Last Admin: 05/30/17 09:41 Dose: 1 applic Heparin Sodium (Porcine) (Heparin -) 5,000 unit IVPUSH PRN PRN PRN Reason: Heparin flush for shiley caths Heparin Sodium (Porcine) (Heparin -) 5,000 unit SQ BID [facility] Last Admin: 05/30/17 09:29 Dose: 5,000 unit Hydralazine HCl (Apresoline -) 25 mg PO TID [facility] Last Admin: 05/30/17 08:42 Dose: Not Given Rituximab 731 mg/ Dextrose 365.5 mls @ 50 mls/hr IVPB ONCE ONE PRN Reason: Protocol Stop: 05/30/17 17:48 Insulin Aspart (Novolog Vial Sliding Scale -) 1 vial SQ ACHS [facility] PRN Reason: Protocol Last Admin: 05/30/17 08:42 Dose: Not Given Insulin Detemir (Levemir Vial) 7 units SQ HS [facility] Last Admin: 05/29/17 22:49 Dose: 7 units Levothyroxine Sodium (Synthroid -) 100 mcg PO DAILY@0700 [facility] Last Admin: 05/30/17 08:42 Dose: Not Given Multivitamins/Minerals/Vitamin C (Tab-A-Vit -) 1 tab PO DAILY [facility] Last Admin: 05/30/17 09:57 Dose: Not Given Nystatin (Nystatin Oral Suspension -) 500,000 units PO Q6HPO [facility] Last Admin: 05/30/17 08:42 Dose: Not Given Pantoprazole Sodium (Protonix -) 40 mg PO DAILY [facility] Last Admin: 05/30/17 09:30 Dose: 40 mg Prednisone (Deltasone -) 60 mg PO DAILY [facility] Last Admin: 05/30/17 09:29 Dose: 60 mg Sodium Chloride ([place] Nasal [place] -) 2 spray NS BID PRN PRN Reason: NASAL CONGESTION Valacyclovir HCl (Valtrex -) 500 mg PO BID [facility] Last Admin: 05/30/17 09:29 Dose: 500 mg Constitutional: Yes: NAD Eyes: Yes: WNL HENT: Yes: WNL Neck: Yes: Supple Cardiovascular: Yes: Regular Rate and Rhythm, S1, S2 Respiratory: Yes: Clear Extremities: Yes: WNL Peripheral Pulses WNL: No Labs: Laboratory Results - last 24 hr 05/29/17 05/29/17 05/29/17 06:20 12:12 13:05 WBC 9.1 RBC 3.09 L D Hgb 9.8 L D Hct 28.4 L D MCV 92.0 MCH 31.7 MCHC 34.4 RDW 22.8 H Plt Count 153 D MPV 8.5 Total Counted 100 Neutrophils % (Manual) 78 Band Neuts % (Manual) 4 D Lymphocytes % (Manual) 6 L D Monocytes % (Manual) 6 Myelocytes % (Man) 3 H D Anisocytosis 2+ Microcytosis 2+ POC Glucometer 167 Lactic Acid 05/29/17 05/29/17 05/30/17 17:57 22:41 06:32 WBC RBC Hgb Hct MCV MCH MCHC RDW Plt Count MPV Total Counted Neutrophils % (Manual) Band Neuts % (Manual) Lymphocytes % (Manual) Monocytes % (Manual) Myelocytes % (Man) Anisocytosis Microcytosis POC Glucometer 282 231 128 Lactic Acid 05/30/17 09:30 WBC RBC Hgb Hct MCV MCH MCHC RDW Plt Count MPV Total Counted Neutrophils % (Manual) Band Neuts % (Manual) Lymphocytes % (Manual) Monocytes % (Manual) Myelocytes % (Man) Anisocytosis Microcytosis POC Glucometer Lactic Acid 1.9 Problem List - Problems (1) Microscopic polyangiitis Code(s): M31.7 - MICROSCOPIC POLYANGIITIS (2) Bilateral pulmonary infiltrates on chest x-ray Code(s): R91.8 - OTHER NONSPECIFIC ABNORMAL FINDING OF LUNG FIELD (3) Hypertension Code(s): I10 - ESSENTIAL (PRIMARY) HYPERTENSION (4) Hypothyroid Code(s): E03.9 - HYPOTHYROIDISM, UNSPECIFIED (5) Vasculitis Code(s): I77.6 - ARTERITIS, UNSPECIFIED (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
--- NOTE | 2017-05-30 13:34 | DS ---
Physical Examination Vital Signs: Vital Signs Temperature 98.2 F 05/30/17 09:00 Pulse Rate 68 05/30/17 09:00 Respiratory Rate 20 05/30/17 09:00 Blood Pressure 158/81 05/30/17 09:00 O2 Sat by Pulse Oximetry (%) 99 05/30/17 09:00 Findings/Remarks: Physical Exam: General: NAD, A&Ox3 Lungs: CTA bilaterally Heart: RRR, S1S2 Abd: Soft, non-tender, non-distended. Normoactive bowel sounds Ext: Warm, well-perfused. 2+ DP/PT bilaterally Labs: CBC, BMP 05/29/17 13:05 05/29/17 06:20 Discharge Summary Reason For Visit: HEMOPTYSIS Current Active Problems Hemoptysis (Acute) MRSA (methicillin resistant staph aureus) culture positive (Acute) Microscopic polyangiitis (Acute) Perirectal abscess (Acute) Pulmonary-renal syndrome (Acute) Hospital Course: This is a 77 year old female with PMHx of HTN, chronic venous stasis lower extremity ulcers, polymyalgia rheumatica, hypothyroidism, recent diagnosis of microscopic polyangitis on 05/10, who presented to the ED with hemoptysis and was started on plamapheresis. Plan: 1) Microscopic polyangitis vasculitis - Plasma exchange 01/25 completed - Received Rituxin - Continue Prednisone 60mg po daily - Valtrex BID - Started mepron pcp ppx - Appreciate hematology consult 2) R buttock phlegmon - Abx discontinued as it appears to be clinically resolved 3) Left posterior thigh wound + MRSA - Zosyn discontinued after patient formed rash on 05/20 - Rash improving, off all abx - Appreciate ID consult 4) Thrush - Continue Diflucan 5) UTI,Klebsiella - Zosyn discontinued 2/ rash - Abx discontinued per ID 6) Acute on chronic anemia - Hgb stable - Transfusions: 1uprbc 05/14, 05/18 7) Thrombocytopenia - Resolved 8) CKD - Improving and stable at Cr 1.7 9) Hypothyroid - Synthroid daily 10) Hemoptysis - Resolved 11) HTN - Above goal - Continue Hydralazine to 25mg tid 12) DM - BGM ACHS - ISS ACHS - Continue levemir 7 units hs Condition: Improved - Instructions Diet, Activity, Other Instructions: Please return to the ED with new, persistent, or worsening symptoms. Please follow-up with providers as indicated. Continue local wound care with santyl/xeroform/kerlix. Continue Prednisone 60mg po daily. Referrals: Kody Salmeron MD [Staff Physician] - 1 Week Kole Concepcion MD [Staff Physician] - (Please follow-up with Dr. Concepcion within 2-3 days for further management of your polyangitis) Marielena Rosales MD [Staff Physician] - 1 Week Dameon Silvestre MD [Staff Physician] - Apolinar Clarke [Primary Care Provider] - 1 Week Jennifer Hamilton MD [Staff Physician] - 1 Week Disposition: HOME - Home Medications Comprehensive Discharge Medication List: Ambulatory Orders Levothyroxine [Synthroid -] 100 mcg PO DAILY 03/23/14 Alcohol Antiseptic Pads [[place] Alcohol Prep Pad] 1 each TP ACHS #1 box 04/29 Lancets/Blood Glucose Strips [Fora [id number] Strp-Lnct] 1 each MC ACHS #1 box 04/29/17 Miscellaneous Medical Supply [Glucometer Device] 1 each SQ ASDIR #1 kit Miscellaneous Medical Supply [Glucometer Test Strips #100] 1 each SQ ASDIR #1 box 04/29/17 [place], Safety [Easy Touch Fliplock Needle] 1 each MC ACHS #1 box 04/29/17 Valacyclovir HCl [Valtrex -] 500 mg PO BID #60 tablet 04/29/17 Ascorbic Acid [Vitamin C -] 500 mg PO BID #60 tablet 05/30/17 Atovaquone [Mepron Oral Solution -] 1,500 mg PO DAILY@0800 #300 ml 05/30/17 Calcium 500Mg/Vit-D 200 Units [Os-Russ 500+D -] 2 tab PO DAILY tab 05/30/17 Collagenase Clostridium Hist. [Santyl -] 1 applic TP DAILY #1 tube 05/30/17 Docusate Sodium [Colace -] 100 mg PO BID #60 capsule 05/30/17 Hydralazine HCl [Apresoline -] 25 mg PO TID #90 tablet 05/30/17 Insulin (Levemir) [Levemir Vial] 7 units SQ HS #1 ml 05/30/17 Insulin Sliding Scale [Novolog Vial Sliding Scale -] 1 vial SQ ACHS #1 vial 04/07 Multivitamins [Multivit ([facility] Formulary)] 1 tab PO DAILY #30 tab 05/30/17 Nystatin Oral Suspension - [Nystatin Oral Susp 170506 Units/5 ML -] 500,000 units PO Q6HPO #30 cup 05/30/17 Pantoprazole Sodium [Protonix -] 40 mg PO DAILY #30 tablet.ec 05/30/17 Prednisone [Deltasone -] 60 mg PO DAILY #90 tablet 05/30/17 Sodium Chloride Nasal [place] [[place] Nasal [place] -] 2 spray NS BID PRN spray 05/30/17 This patient is new to me today: No Emergency Visit: Yes ED Registration Date: 05/12/17 Care time: The patient presented to the Emergency Department on the above date and was hospitalized for further evaluation of their emergent condition. Critical Care patient: No - Discharge Referral Referred to [facility] Med P.C.: No
--- NOTE | 2017-05-30 14:33 | PN ---
Progress Note (short form) - Note Progress Note: Patient seen and examined feels better. finished rituxan O/E: NAD NCAT CTA b/l Abdomen benign LE: L>R. (chronic) Last Vital Signs Temp Pulse Resp BP Pulse Ox 98.1 F 66 18 153/82 99 05/30/17 13:46 05/30/17 13:46 05/30/17 13:46 05/30/17 13:46 05/30/17 09:00 CBC, BMP 05/29/17 13:05 05/29/17 06:20 Current Medications Generic Name Dose Route Start Last Admin Trade Name Freq PRN Reason Stop Dose Admin Ascorbic Acid 500 mg 05/21/17 13:00 05/30/17 09:30 Vitamin C - PO 500 mg BID [facility] Administration Atovaquone 1,500 mg 05/16/17 08:00 05/30/17 08:00 Mepron - PO 1,500 mg DAILY@0800 [facility] Administration Calcium Carbonate/Cholecalciferol 2 tab 05/14/17 20:00 05/30/17 09:29 Os-Russ 500+D - PO 2 tab DAILY [facility] Administration Calcium Gluconate 1,000 mg 05/14/17 16:00 Calcium Gluconate 10% - IVPB ONCE PRN Collagenase 1 applic 05/12/17 17:00 05/30/17 09:40 Santyl - TP 1 applic DAILY [facility] Administration Diphenhydramine HCl 50 mg 05/23/17 10:15 Benadryl Injection - IVPB Q6H PRN FOR ITCHING Docusate Sodium 100 mg 05/11/17 22:00 05/30/17 09:30 Colace - PO 100 mg BID [facility] Administration Fluocinonide 1 applic 05/23/17 12:00 05/30/17 09:41 Lidex 0.05% Ointment - TP 1 applic DAILY [facility] Administration Heparin Sodium (Porcine) 5,000 unit 05/25/17 12:20 Heparin - IVPUSH PRN PRN Heparin flush for shiley caths Heparin Sodium (Porcine) 5,000 unit 05/26/17 10:00 05/30/17 09:29 Heparin - SQ 5,000 unit BID [facility] Administration Hydralazine HCl 25 mg 05/22/17 14:00 05/30/17 13:53 Apresoline - PO 25 mg TID [facility] Administration Rituximab 731 mg/ Dextrose 365.5 mls @ 50 mls/hr 05/30/17 10:30 05/30/17 11: 19 IVPB 05/30/17 17:48 50 mls/hr ONCE ONE Administration Protocol Insulin Aspart 1 vial 05/11/17 07:00 05/30/17 11:44 Novolog Vial Sliding Scale - SQ Not Given ACHS [facility] Protocol Insulin Detemir 7 units 05/19/17 22:00 05/29/17 22:49 Levemir Vial SQ 7 units HS [facility] Administration Levothyroxine Sodium 100 mcg 05/11/17 07:00 05/30/17 08:42 Synthroid - PO Not Given DAILY@0700 [facility] Multivitamins/Minerals/Vitamin C 1 tab 05/30/17 08:45 05/30/17 09:57 Tab-A-Vit - PO Not Given DAILY [facility] Nystatin 500,000 units 05/21/17 12:00 05/30/17 13:55 Nystatin Oral Suspension - PO 500,000 units Q6HPO [facility] Administration Pantoprazole Sodium 40 mg 05/11/17 13:00 05/30/17 09:30 Protonix - PO 40 mg DAILY [facility] Administration Prednisone 60 mg 05/13/17 10:00 05/30/17 09:29 Deltasone - PO 60 mg DAILY [facility] Administration Sodium Chloride 2 spray 05/22/17 09:24 [place] Nasal [place] - NS BID PRN NASAL CONGESTION Valacyclovir HCl 500 mg 05/11/17 10:00 05/30/17 09:29 Valtrex - PO 500 mg BID [facility] Administration Cor: RSR, No murmurs, No gallops Lungs: Clear to P&A Abd: Soft, Normal bowel sounds, No organomegaly Ext:No significant edema Skin: Rash: not visible lab/meds/chart/vitals reviewed A/P Polyangitis: on dex, s/p PLEX 7 sessions , for rituxan today, tolerated well Renal involvment : Improved ACI: stable Superficial Thrombophlebitis: US reviewed thrombocytopenia :resolved , likely post procedural d/c with OP f/u.
--- NOTE | 2017-05-30 16:38 | PN ---
Progress Note, Physician History of Present Illness: Pt seen and examined at bedside. She is awake and alert. She had the dose of rituximab today. - Current Medication List Current Medications: Active Medications Ascorbic Acid (Vitamin C -) 500 mg PO BID [facility] Last Admin: 05/30/17 09:30 Dose: 500 mg Atovaquone (Mepron -) 1,500 mg PO DAILY@0800 [facility] Last Admin: 05/30/17 08:00 Dose: 1,500 mg Calcium Carbonate/Cholecalciferol (Os-Russ 500+D -) 2 tab PO DAILY [facility] Last Admin: 05/30/17 09:29 Dose: 2 tab Calcium Gluconate (Calcium Gluconate 10% -) 1,000 mg IVPB ONCE PRN Collagenase (Santyl -) 1 applic TP DAILY [facility] Last Admin: 05/30/17 09:40 Dose: 1 applic Diphenhydramine HCl (Benadryl Injection -) 50 mg IVPB Q6H PRN PRN Reason: FOR ITCHING Docusate Sodium (Colace -) 100 mg PO BID [facility] Last Admin: 05/30/17 09:30 Dose: 100 mg Fluocinonide (Lidex 0.05% Ointment -) 1 applic TP DAILY [facility] Last Admin: 05/30/17 09:41 Dose: 1 applic Heparin Sodium (Porcine) (Heparin -) 5,000 unit IVPUSH PRN PRN PRN Reason: Heparin flush for shiley caths Heparin Sodium (Porcine) (Heparin -) 5,000 unit SQ BID [facility] Last Admin: 05/30/17 09:29 Dose: 5,000 unit Hydralazine HCl (Apresoline -) 25 mg PO TID [facility] Last Admin: 05/30/17 13:53 Dose: 25 mg Rituximab 731 mg/ Dextrose 365.5 mls @ 50 mls/hr IVPB ONCE ONE PRN Reason: Protocol Stop: 05/30/17 17:48 Last Admin: 05/30/17 11:19 Dose: 50 mls/hr Insulin Aspart (Novolog Vial Sliding Scale -) 1 vial SQ ACHS [facility] PRN Reason: Protocol Last Admin: 05/30/17 11:44 Dose: Not Given Insulin Detemir (Levemir Vial) 7 units SQ HS [facility] Last Admin: 05/29/17 22:49 Dose: 7 units Levothyroxine Sodium (Synthroid -) 100 mcg PO DAILY@0700 [facility] Last Admin: 05/30/17 08:42 Dose: Not Given Multivitamins/Minerals/Vitamin C (Tab-A-Vit -) 1 tab PO DAILY [facility] Last Admin: 05/30/17 09:57 Dose: Not Given Nystatin (Nystatin Oral Suspension -) 500,000 units PO Q6HPO [facility] Last Admin: 05/30/17 13:55 Dose: 500,000 units Pantoprazole Sodium (Protonix -) 40 mg PO DAILY [facility] Last Admin: 05/30/17 09:30 Dose: 40 mg Prednisone (Deltasone -) 60 mg PO DAILY [facility] Last Admin: 05/30/17 09:29 Dose: 60 mg Sodium Chloride ([place] Nasal [place] -) 2 spray NS BID PRN PRN Reason: NASAL CONGESTION Valacyclovir HCl (Valtrex -) 500 mg PO BID [facility] Last Admin: 05/30/17 09:29 Dose: 500 mg - Objective Vital Signs: Vital Signs Temperature 97.9 F 05/30/17 14:43 Pulse Rate 81 05/30/17 14:43 Respiratory Rate 18 05/30/17 14:43 Blood Pressure 149/74 05/30/17 14:43 O2 Sat by Pulse Oximetry (%) 99 05/30/17 09:00 Constitutional: Yes: Calm Eyes: Yes: Conjunctiva Clear HENT: Yes: Atraumatic Neck: Yes: Supple Cardiovascular: Yes: S1, S2 Respiratory: Yes: CTA Bilaterally Gastrointestinal: Yes: Normal Bowel Sounds, Soft Genitourinary: Yes: WNL Musculoskeletal: Yes: WNL Edema: Yes Edema: LLE: Trace, RLE: Trace Neurological: Yes: Oriented Psychiatric: Yes: Oriented Labs: CBC, BMP 05/29/17 13:05 05/29/17 06:20 INR, PTT INR 0.99 (0.82-1.09) 05/29/17 06:20 Fibrinogen 164.0 mg/dL (238-498) L 05/29/17 06:20 Problem List - Problems (1) Acute kidney injury Code(s): N17.9 - ACUTE KIDNEY FAILURE, UNSPECIFIED (2) Hemoptysis Code(s): R04.2 - HEMOPTYSIS Assessment/Plan Current Medications Generic Name Dose Route Start Last Admin Trade Name Freq PRN Reason Stop Dose Admin Ascorbic Acid 500 mg 05/21/17 13:00 05/30/17 09:30 Vitamin C - PO 500 mg BID [facility] Administration Atovaquone 1,500 mg 05/16/17 08:00 05/30/17 08:00 Mepron - PO 1,500 mg DAILY@0800 [facility] Administration Calcium Carbonate/Cholecalciferol 2 tab 05/14/17 20:00 05/30/17 09:29 Os-Russ 500+D - PO 2 tab DAILY [facility] Administration Calcium Gluconate 1,000 mg 05/14/17 16:00 Calcium Gluconate 10% - IVPB ONCE PRN Collagenase 1 applic 05/12/17 17:00 05/30/17 09:40 Santyl - TP 1 applic DAILY [facility] Administration Diphenhydramine HCl 50 mg 05/23/17 10:15 Benadryl Injection - IVPB Q6H PRN FOR ITCHING Docusate Sodium 100 mg 05/11/17 22:00 05/30/17 09:30 Colace - PO 100 mg BID [facility] Administration Fluocinonide 1 applic 05/23/17 12:00 05/30/17 09:41 Lidex 0.05% Ointment - TP 1 applic DAILY [facility] Administration Heparin Sodium (Porcine) 5,000 unit 05/25/17 12:20 Heparin - IVPUSH PRN PRN Heparin flush for shiley caths Heparin Sodium (Porcine) 5,000 unit 05/26/17 10:00 05/30/17 09:29 Heparin - SQ 5,000 unit BID [facility] Administration Hydralazine HCl 25 mg 05/22/17 14:00 05/30/17 13:53 Apresoline - PO 25 mg TID [facility] Administration Rituximab 731 mg/ Dextrose 365.5 mls @ 50 mls/hr 05/30/17 10:30 05/30/17 11: 19 IVPB 05/30/17 17:48 50 mls/hr ONCE ONE Administration Protocol Insulin Aspart 1 vial 05/11/17 07:00 05/30/17 11:44 Novolog Vial Sliding Scale - SQ Not Given ACHS [facility] Protocol Insulin Detemir 7 units 05/19/17 22:00 05/29/17 22:49 Levemir Vial SQ 7 units HS [facility] Administration Levothyroxine Sodium 100 mcg 05/11/17 07:00 05/30/17 08:42 Synthroid - PO Not Given DAILY@0700 [facility] Multivitamins/Minerals/Vitamin C 1 tab 05/30/17 08:45 05/30/17 09:57 Tab-A-Vit - PO Not Given DAILY [facility] Nystatin 500,000 units 05/21/17 12:00 05/30/17 13:55 Nystatin Oral Suspension - PO 500,000 units Q6HPO [facility] Administration Pantoprazole Sodium 40 mg 05/11/17 13:00 05/30/17 09:30 Protonix - PO 40 mg DAILY [facility] Administration Prednisone 60 mg 05/13/17 10:00 05/30/17 09:29 Deltasone - PO 60 mg DAILY [facility] Administration Sodium Chloride 2 spray 05/22/17 09:24 [place] Nasal [place] - NS BID PRN NASAL CONGESTION Valacyclovir HCl 500 mg 05/11/17 10:00 05/30/17 09:29 Valtrex - PO 500 mg BID [facility] Administration Impression 1. MYRTLE 2. lower extremity ulcer 3. hypothyroid 4. HTN 5. polymyalgia 6. anemia 7. vasculitis microscopic polyangitis 8. thrombophlebitis 9. hemoptysis 10. thrush Plan - will see pt in office next week - will check ua in office - pt will also need follow up with rheum - pt reluctant to take flu shot - will follow Dr Hamilton
[2017-05-30 16:55] VITALS: BP 153/82; PULSE 66; TEMP 98.2
== END 2017-05-30 18:44 | disposition home or self-care (01) | DRG 546 ==
LOC: JER 15:11 → J6S 20:27 → JER 21:45 → OBSVTOIN 05-12 12:14 → J7W 05-29 21:49
PROVIDERS: ADMIT Internal Medicine; ATTEND Registered Nurse
PROC: 6A551Z3 Pheresis of Plasma, Multiple (ICD-10-PCS; principal; 2017-05-14)
PROC: 30233H1 Transfusion of Nonautologous Whole Blood into Peripheral Vein, Percutaneous Approach (ICD-10-PCS; 2017-05-14)
PROC: 06HM33Z Insertion of Infusion Device into Right Femoral Vein, Percutaneous Approach (ICD-10-PCS; 2017-05-14)
PROC: B51BZZA Fluoroscopy of Right Lower Extremity Veins, Guidance (ICD-10-PCS; 2017-05-14)
DX: M31.7 Microscopic polyangiitis (principal); R04.2 Hemoptysis; B37.0 Candidal stomatitis; L97.829 Non-pressure chronic ulcer of other part of left lower leg with unspecified severity; L97.819 Non-pressure chronic ulcer of other part of right lower leg with unspecified severity; I50.32 Chronic diastolic (congestive) heart failure; N39.0 Urinary tract infection, site not specified; I13.0 Hypertensive heart and chronic kidney disease with heart failure and stage 1 through stage 4 chronic kidney disease, or unspecified chronic kidney disease; I82.812 Embolism and thrombosis of superficial veins of left lower extremity; K61.1 Rectal abscess; E11.22 Type 2 diabetes mellitus with diabetic chronic kidney disease; N18.9 Chronic kidney disease, unspecified; T50.995A Adverse effect of other drugs, medicaments and biological substances, initial encounter; L27.1 Localized skin eruption due to drugs and medicaments taken internally; I87.8 Other specified disorders of veins; M35.3 Polymyalgia rheumatica; Z79.4 Long term (current) use of insulin; Z87.891 Personal history of nicotine dependence; B35.3 Tinea pedis; T38.0X5A Adverse effect of glucocorticoids and synthetic analogues, initial encounter; E11.65 Type 2 diabetes mellitus with hyperglycemia; D69.59 Other secondary thrombocytopenia; E89.0 Postprocedural hypothyroidism; E11.649 Type 2 diabetes mellitus with hypoglycemia without coma; K59.00 Constipation, unspecified; B95.62 Methicillin resistant Staphylococcus aureus infection as the cause of diseases classified elsewhere; B96.29 Other Escherichia coli [E. coli] as the cause of diseases classified elsewhere; B96.1 Klebsiella pneumoniae [K. pneumoniae] as the cause of diseases classified elsewhere; Z51.89 Encounter for other specified aftercare; R91.8 Other nonspecific abnormal finding of lung field
CPT/HCPCS: 36415; 36430; 71010-TC; 71020-TC; 71250-TC; 72192-TC; 74176-TC; 80048; 80053; 81003; 81015; 82955; 83605; 83615; 83735; 84100; 84132; 85025; 85027; 85041; 85044; 85384; 85610; 85651; 85730; 86022; 86162; 86850; 86900; 86901; 86922; 87040; 87070; 87077; 87086; 87186; 87205; 93005; 93010; 93970-TC; 96413; 96415; 97116-GP; 97161-GP; 99285-25; G0378; G0480; J1644; J9310; P9017; P9038; P9058

== ENCOUNTER 2017-06-05 16:47 | Inpatient (IN) | payer OTHER, BC ==
--- NOTE | 2017-06-05 16:54 | PDOC ---
Rapid Medical Evaluation Time Seen by Provider: 06/05/17 16:48 Medical Evaluation: Allergies Allergy/AdvReac Type Severity Reaction Status Date / Time Sulfa (Sulfonamide Allergy Severe Verified 05/10/17 15:14 Antibiotics) piperacillin sodium Allergy Mild Rash Verified 05/21/17 16:16 [From Zosyn] tazobactam sodium Allergy Mild Rash Verified 05/21/17 16:16 [From Zosyn] 06/05/17 16:48 I have performed a brief in-person evaluation of this patient. The patient presents with a chief complaint of: R finger infection, HTN, microscopic polyangiitis on prednisone Pertinent physical exam findings:Stable and well appearing w/ what appears to be diffuse purulent cellulitis 2/2 possible paronychia of R 3rd finger I have ordered the following:cbc/chem/xr The patient will proceed to the ED for further evaluation.
[2017-06-05 17:26] LABS: BASOPHIL 0.1 % (0-2.0); MCH 32.7 pg (25.7-33.7); MCHC 34.9 g/dl (32.0-36.0); MEAN CELL VOLUME 93.5 fl (80-96); MEAN PLT VOLUME 8.7 fl (7.5-11.1); NEUTROPHILS 92.7 % (42.8-82.8); PLATELET COUNT 161 K/MM3 (134-434); RDW 24.1 % (11.6-15.6); WHITE BLOOD COUNT 9.4 K/mm3 (4.0-10.0)
[2017-06-05 17:44] LABS: ALBUMIN 4.1 g/dl (3.4-5.0); ANION GAP 9 (8-16); CALCIUM 8.8 mg/dL (8.5-10.1); CO2 27 mmol/L (21-32); CREATININE 1.5 mg/dL (0.55-1.02); GLUCOSE,RANDOM 225 mg/dL (74-106); SGOT/AST 10 U/L (15-37); SGPT/ALT 24 U/L (12-78)
[2017-06-05 17:46] LABS: ALK PHOS 71 U/L (45-117); BILIRUBIN,TOTAL 0.6 mg/dL (0.2-1.0); TOT PROT 6.6 g/dl (6.4-8.2)
--- NOTE | 2017-06-05 19:09 | PDOC ---
History of Present Illness - General Chief Complaint: Redness To Affected Area Stated Complaint: PCP SENT Time Seen by Provider: 06/05/17 16:48 History Source: Patient Exam Limitations: No Limitations - History of Present Illness Initial Comments: 06/05/17 19:51 Patient is a 77F with history of microscopic polyangiitis, htn and hypothyroidism here today complaining of a bullae to her right middle finger. She has been on termite technician immunosuppression for her microscopic polyangiitis. She says that she developed a blister on her right 3rd digit two days ago. It then expanded to cover 4cm of the distal aspect of her finger with surrounding erythema. It is not painful. Patient is able to move her hand without hand. She is also complaining of a lesion to the medial aspect of her left medial thigh. This lesion started two days ago as a preciado, which then broke open and developed into an area of surrounding erythema. Patient denies any signs of systemic infection, including nausea, vomiting, fevers and chills. Patient also has an ulcer on her left leg, which she says is healing. She states that she has venous insufficiency on her right leg, which has been improving as well. Past History - Past Medical History Allergies/Adverse Reactions: Allergies Allergy/AdvReac Type Severity Reaction Status Date / Time Sulfa (Sulfonamide Allergy Severe Verified 06/05/17 16:52 Antibiotics) piperacillin sodium Allergy Mild Rash Verified 06/05/17 16:52 [From Zosyn] tazobactam sodium Allergy Mild Rash Verified 06/05/17 16:52 [From Zosyn] Home Medications: Ambulatory Orders Levothyroxine [Synthroid -] 100 mcg PO DAILY 03/23/14 Alcohol Antiseptic Pads [[place] Alcohol Prep Pad] 1 each TP ACHS #1 box 04/29 Lancets/Blood Glucose Strips [Fora [id number] Strp-Lnct] 1 each MC ACHS #1 box 04/29/17 Miscellaneous Medical Supply [Glucometer Device] 1 each SQ ASDIR #1 kit Miscellaneous Medical Supply [Glucometer Test Strips #100] 1 each SQ ASDIR #1 box 04/29/17 [place], Safety [Easy Touch Fliplock Needle] 1 each MC ACHS #1 box 04/29/17 Valacyclovir HCl [Valtrex -] 500 mg PO BID #60 tablet 04/29/17 Ascorbic Acid [Vitamin C -] 500 mg PO BID #60 tablet 05/30/17 Atovaquone [Mepron Oral Solution -] 1,500 mg PO DAILY@0800 #300 ml 05/30/17 Calcium 500Mg/Vit-D 200 Units [Os-Russ 500+D -] 2 tab PO DAILY tab 05/30/17 Collagenase Clostridium Hist. [Santyl -] 1 applic TP DAILY #1 tube 05/30/17 Docusate Sodium [Colace -] 100 mg PO BID #60 capsule 05/30/17 Hydralazine HCl [Apresoline -] 25 mg PO TID #90 tablet 05/30/17 Insulin (Levemir) [Levemir Vial] 7 units SQ HS #1 ml 05/30/17 Insulin Sliding Scale [Novolog Vial Sliding Scale -] 1 vial SQ ACHS #1 vial 04/07 Multivitamins [Multivit ([facility] Formulary)] 1 tab PO DAILY #30 tab 05/30/17 Nystatin Oral Suspension - [Nystatin Oral Susp 307721 Units/5 ML -] 500,000 units PO Q6HPO #30 cup 05/30/17 Pantoprazole Sodium [Protonix -] 40 mg PO DAILY #30 tablet.ec 05/30/17 Prednisone [Deltasone -] 60 mg PO DAILY #90 tablet 05/30/17 Sodium Chloride Nasal [place] [[place] Nasal [place] -] 2 spray NS BID PRN spray 05/30/17 Anemia: No Asthma: No Cancer: No Cardiac Disorders: No CVA: No COPD: No CHF: No Dementia: No Diabetes: No GI Disorders: No Disorders: No HTN: Yes Hypercholesterolemia: No Liver Disease: No Seizures: No Thyroid Disease: Yes (HYPO) Other medical history: MICROSCOPIC POLYANGITIS - Surgical History Abdominal Surgery: Yes (INTESTINAL OBSTRUCTION) Appendectomy: No Cardiac Surgery: No Cholecystectomy: No Lung Surgery: No Neurologic Surgery: No Orthopedic Surgery: No - Suicide/Smoking/Psychosocial Hx Smoking History: Former smoker Have you smoked in the past 12 months: No If you are a former smoker, when did you quit?: 30 yrs Information on smoking cessation initiated: No Hx Alcohol Use: No Drug/Substance Use Hx: No Substance Use Type: None Hx Substance Use Treatment: No Review of Systems - Review of Systems Comments:: 06/05/17 20:04 GENERAL/CONSTITUTIONAL: No fever or chills. No weakness. HEAD, EYES, EARS, NOSE AND THROAT: No change in vision. No sore throat. CARDIOVASCULAR: No chest pain or shortness of breath RESPIRATORY: No cough, wheezing, or hemoptysis. GASTROINTESTINAL: No nausea, vomiting, diarrhea or constipation. GENITOURINARY: No dysuria, frequency, or change in urination. MUSCULOSKELETAL: No joint or muscle swelling or pain. No neck or back pain. SKIN: Positive for bullae and cellulitis NEUROLOGIC: No headache, vertigo, loss of consciousness, or change in strength/ sensation. ENDOCRINE: No increased thirst. No abnormal weight change HEMATOLOGIC/LYMPHATIC: No anemia, easy bleeding, or history of blood clots. ALLERGIC/IMMUNOLOGIC: No hives or skin allergy. *Physical Exam - Vital Signs Last Vital Signs Temp Pulse Resp BP Pulse Ox 98.1 F 105 H 20 188/103 97 06/05/17 16:47 06/05/17 16:47 06/05/17 16:47 06/05/17 16:47 06/05/17 16:47 - Physical Exam Comments: 06/05/17 20:04 GENERAL: Awake, alert, and fully oriented, in no acute distress HEAD: No signs of trauma, normocephalic, atraumatic EYES: PERRLA, EOMI, sclera anicteric, conjunctiva clear ENT: Auricles normal inspection, hearing grossly normal, nares patent, oropharynx clear without exudates. Moist mucosa NECK: Normal ROM, supple, no lymphadenopathy, JVD, or masses LUNGS: No distress, speaks full sentences, clear to auscultation bilaterally HEART: Regular rate and rhythm, normal S1 and S2, no murmurs, rubs or gallops, peripheral pulses normal and equal bilaterally. ABDOMEN: Soft, nontender, normoactive bowel sounds. No guarding, no rebound. No masses EXTREMITIES: Normal inspection, Normal range of motion, no edema. No clubbing or cyanosis. NEUROLOGICAL: Cranial nerves II through XII grossly intact. Normal speech, normal gait, no focal sensorimotor deficits R HAND: 4x2.5cm bullae with surrounding erythema, nontender to palpation, nontender to flexion and extension, warm to touch ED Treatment Course - LABORATORY CBC & Chemistry Diagram: 06/05/17 17:00 06/05/17 17:00 - ADDITIONAL ORDERS Additional order review: Laboratory Results 06/05/17 17:00 Sodium 138 Potassium 3.7 Chloride 102 Carbon Dioxide 27 Anion Gap 9 BUN 27 H Creatinine 1.5 H Creat Clearance w eGFR 33.76 Random Glucose 225 H D Calcium 8.8 Total Bilirubin 0.6 D AST 10 L D ALT 24 D Alkaline Phosphatase 71 D Total Protein 6.6 D Albumin 4.1 D 06/05/17 17:00 RBC 3.27 L MCV 93.5 MCHC 34.9 RDW 24.1 H MPV 8.7 Neutrophils % 92.7 H D Lymphocytes % 5.0 L D Monocytes % 2.2 L Eosinophils % 0.0 D Basophils % 0.1 Medical Decision Making - Medical Decision Making 06/05/17 20:11 77F with history of microscopic polyangiitis, htn and hypothyroidism here today with several lesions. Vital signs stable, slightly tachycardic. No symptoms to suggest systemic infection. Will consult hand surgery for treatment of hand. Will treat with vancomycin. Differential diagnosis includes, but is not limited to: MRSA, cellulitis, aseptic bullae. 06/05/17 21:39 Laboratory Tests 06/05/17 06/05/17 17:00 17:00 WBC 9.4 RBC 3.27 L Hgb 10.7 Plt Count 161 Neutrophils % 92.7 H D BUN 27 H Creatinine 1.5 H Random Glucose 225 H D CBC shows neutrophil predominance. Cr 1.5, not an acute elevation. Glucose elevation consistent with someone on termite technician steroid therapy. IV Vanc started for possible MRSA. Joy consulted regarding patient's kidney function. Cliff Paez consulted regarding patient's infectious status. Will admit to hospitalist. *DC/Admit/Observation/Transfer Diagnosis at time of Disposition: Cellulitis - Discharge Dispostion Condition at time of disposition: Admit: Yes - Referrals Referrals: STAFF,NOT ON [Primary Care Provider] - - Patient Instructions - Post Discharge Activity
--- NOTE | 2017-06-05 19:16 | PDOC ---
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 - Physicial Exam PE: 06/05/17 20:43 Patient is awake and alert, afebrile, well-appearing; nc, atr cta rrr + 4 x 2 cm bullae to the dorsal or lateral aspect of the third finger of the right hand with erythematous base with limited flexion of the PIP and DIP due to the the bullae; no evidence of lymphangitis; + 4 cm circular area of erythema to the left mid thigh, warm to touch, with a central nidus and a ruptured hemorrhagic bullae; - Medical Decision Making 06/05/17 20:44 Patient 77-year-old with history of vasculitis treated with immune suppression presents with cellulitis of the left mid thigh as well as a borderline cellulitis of the third finger of the right hand. Case discussed with ID. We'll administer Vanco and strain ma'am. Will admit for further evaluation and treatment with a hand consult.
[2017-06-05 19:42] LABS: ANISOCYTOSIS 3+; MACROCYTOSIS 1+; MICROCYTOSIS 2+
[2017-06-05] MEDS ORDERED: VANCOMYCIN 1,250 MG in DEXTROSE 5%-WATER - 250 ML IVPB ONE (19:49)
[2017-06-05] MEDS ORDERED: AZTREONAM 1 GM/10 ML SYRINGE (RESTRICTED TO ID) IVPUSH ONE (20:27)
[2017-06-05] MEDS ORDERED: SODIUM CHLORIDE NASAL SPRAY 44 ML BOTTLE NS PRN (23:48)
[2017-06-05] MEDS ORDERED: METOPROLOL TARTRATE 5 MG/5 ML VIAL IVPUSH ONE (23:55)
[2017-06-05] MEDS ORDERED: ACETAMINOPHEN 325 MG TABLET (FP) PO PRN (23:58)
--- NOTE | 2017-06-06 01:00 | PN ---
Teaching Attending Note Name of Resident: Patel Glasgow ATTENDING PHYSICIAN STATEMENT I saw and evaluated the patient. I reviewed the resident's note and discussed the case with the resident. I agree with the resident's findings and plan as documented. SUBJECTIVE: 77 year old comes for evaluation of right index finger bullae surrounded by erythema. HAs a history of vasculitis and previous MRSA infection PMH microscopic polyangitis OBJECTIVE: Vital Signs Temperature 98.1 F 06/05/17 16:47 Pulse Rate 62 06/06/17 00:44 Respiratory Rate 16 06/06/17 00:44 Blood Pressure 151/81 06/06/17 00:44 O2 Sat by Pulse Oximetry (%) 97 06/06/17 00:44 4 x 2 cm bullae to the dorsal or lateral aspect of the third finger of the right hand with erythematous base with limited flexion of the PIP and DIP due to the the bullae; no evidence of lymphangitis; does not appear infected + 4 cm circular area of erythema to the left mid thigh, warm to touch right dover ulcer 3cm left dover ulcer 1cm clean base CBC, BMP 06/05/17 17:00 06/05/17 17:00 ASSESSMENT AND PLAN: 1. Suspected cellulitis - liekly triggered by formation of a bullae with superimposed staph. History of MRSA. Immunosuppressed on prednisone - IV vanco - demarcate area - wound care local - ID eval 2. Chronic renal insufficiency - stable 3.Microscopic polyangitis - o/p follow up
[2017-06-06] MEDS: NYSTATIN 500,000 UNITS/5 ML SUSPENSION PO SCH ×5 (01:01→23:55)
[2017-06-06 03:04] VITALS: BMI 25.9
--- NOTE | 2017-06-06 04:13 | HP ---
CHIEF COMPLAINT: right 3rd finger bullae and left thigh erthematous lesion PCP: none HISTORY OF PRESENT ILLNESS: 77F w/ hx of microscopic polyangiitis (dx on 05/10), HTN, chronic venous stasis LE ulcers, polymyalgia rheumatica, hypothyroidism, and IDDM who presents with a right 3rd digit dorsal bullae and left mid-thigh ulcer. Per pt, these lesions began 3 to 4 days ago. They were mildly painful, but she only presented when she went to her generation manager, Dr. Hamilton, for f/u after her last hospital discharge, and he recommended that she go to the ED. Pt denies fevers, chills, chest pain, SOB, abdominal pain, n/v/d/c, and dysuria. Pt states that she thinks that her finger bullae was possibly caused by her BGM fingersticks. Of note, pt was just diagnosed with microscopic polyangiitis on her last hospital admission from 05/12- 05/30. She was started on valacylovir, prednisone , and atovaquone. ER course was notable for: (1) hypertensive urgency (2) labs (3) imaging Recent Travel: PAST MEDICAL HISTORY: microscopic polyangiitis (dx on 05/10), HTN, chronic venous stasis LE ulcers, polymyalgia rheumatica, hypothyroidism, and IDDM PAST SURGICAL HISTORY: SBO in 1971 thyroidectomy in 2009 Social History: Smoking: quit 30 years ago Alcohol: social Drugs: denies Family History: Allergies Sulfa (Sulfonamide Antibiotics) Allergy (Severe, Verified 06/05/17 16:52) "TONGUE SWELLED" piperacillin sodium [From Zosyn] Allergy (Mild, Verified 06/05/17 16:52) Rash RASH PER RN tazobactam sodium [From Zosyn] Allergy (Mild, Verified 06/05/17 16:52) Rash RASH PER RN HOME MEDICATIONS: Home Medications Medication Instructions Recorded Levothyroxine [Synthroid -] 100 mcg PO DAILY 03/23/14 Alcohol Antiseptic Pads [Caretouch 1 each TP ACHS #1 box 04/29/17 Alcohol Prep Pad] Lancets/Blood Glucose Strips [Fora 1 each MC ACHS #1 box 04/29/17 [id number] Strp-Lnct] Miscellaneous Medical Supply 1 each SQ ASDIR #1 kit 04/29/17 [Glucometer Device] Miscellaneous Medical Supply 1 each SQ ASDIR #1 box 04/29/17 [Glucometer Test Strips #100] [place], Safety [Easy Touch 1 each ACHS #1 box 04/29/17 Fliplock Needle] Valacyclovir HCl [Valtrex -] 500 mg PO BID #60 tablet 04/29/17 Ascorbic Acid [Vitamin C -] 500 mg PO BID #60 tablet 05/30/17 Atovaquone [Mepron Oral Solution -] 1,500 mg PO DAILY@0800 #300 ml 05/30/17 Calcium 500Mg/Vit-D 200 Units 2 tab PO DAILY tab 05/30/17 [Os-Russ 500+D -] Collagenase Clostridium Hist. 1 applic TP DAILY #1 tube 05/30/17 [Santyl -] Docusate Sodium [Colace -] 100 mg PO BID #60 capsule 05/30/17 Hydralazine HCl [Apresoline -] 25 mg PO TID #90 tablet 05/30/17 Insulin (Levemir) [Levemir Vial] 7 units SQ HS #1 ml 05/30/17 Insulin Sliding Scale [Novolog 1 vial SQ ACHS #1 vial 05/30/17 Vial Sliding Scale -] Multivitamins [Multivit ([facility] 1 tab PO DAILY #30 tab 05/30/17 Formulary)] Nystatin Oral Suspension - 500,000 units PO Q6HPO #30 cup 05/30/17 [Nystatin Oral Susp 603083 Units/5 ML -] Pantoprazole Sodium [Protonix -] 40 mg PO DAILY #30 tablet.ec 05/30/17 Prednisone [Deltasone -] 60 mg PO DAILY #90 tablet 05/30/17 Sodium Chloride Nasal [place] [[place] 2 spray NS BID PRN spray 05/30/17 [place] Nasal [place] -] REVIEW OF SYSTEMS CONSTITUTIONAL: Absent: fever, chills, diaphoresis, generalized weakness, malaise, loss of appetite, weight change HEENT: Absent: rhinorrhea, nasal congestion, throat pain, throat swelling, difficulty swallowing, mouth swelling, ear pain, eye pain, visual changes CARDIOVASCULAR: Absent: chest pain, syncope, palpitations, irregular heart rate, lightheadedness , peripheral edema RESPIRATORY: Absent: cough, shortness of breath, dyspnea with exertion, orthopnea, wheezing, stridor, hemoptysis GASTROINTESTINAL: Absent: abdominal pain, abdominal distension, nausea, vomiting, diarrhea, constipation, melena, hematochezia GENITOURINARY: Absent: dysuria, frequency, urgency, hesitancy, hematuria, flank pain, genital pain MUSCULOSKELETAL: Absent: myalgia, arthralgia, joint swelling, back pain, neck pain Present: finger pain, left thigh ulcer SKIN: Absent: rash, itching, pallor present: left thigh ulcer, b/l dover ulcers HEMATOLOGIC/IMMUNOLOGIC: Absent: easy bleeding, easy bruising, lymphadenopathy, frequent infections ENDOCRINE: Absent: unexplained weight gain, unexplained weight loss, heat intolerance, cold intolerance NEUROLOGIC: Absent: headache, focal weakness or paresthesias, dizziness, unsteady gait, seizure, mental status changes, bladder or bowel incontinence PSYCHIATRIC: Absent: anxiety, depression, suicidal or homicidal ideation, hallucinations. PHYSICAL EXAMINATION Vital Signs - 24 hr 06/05/17 06/06/17 06/06/17 16:47 00:39 00:44 Temperature 98.1 F Pulse Rate 105 H Pulse Rate [ 62 Apical] Respiratory 20 16 Rate Blood Pressure 188/103 151/82 Blood Pressure 151/81 [Left Arm] O2 Sat by Pulse 97 97 Oximetry (%) 06/06/17 02:10 Temperature 98.2 F Pulse Rate 74 Pulse Rate [ Apical] Respiratory 20 Rate Blood Pressure 177/84 Blood Pressure [Left Arm] O2 Sat by Pulse 97 Oximetry (%) GENERAL: Awake, alert, and fully oriented, in no acute distress. HEAD: Normal with no signs of trauma. EYES: Pupils equal, round and reactive to light, extraocular movements intact, sclera anicteric, conjunctiva clear. No lid lag. EARS, NOSE, THROAT: Ears normal, nares patent, oropharynx clear without exudates. Moist mucous membranes. NECK: Normal range of motion, supple without lymphadenopathy, JVD, or masses. LUNGS: Breath sounds equal, clear to auscultation bilaterally. No wheezes, and no crackles. No accessory muscle use. HEART: Regular rate and rhythm, normal S1 and S2 without murmur, rub or gallop. ABDOMEN: Soft, nontender, not distended, normoactive bowel sounds, no guarding, no rebound, no masses. No hepatomegaly or splenomegaly. MUSCULOSKELETAL: 4 x 2cm bullae over dorsal right 3rd digit, decreased ROM of PIP and DIP, minimally tender to palpation. ulcer with 4cm of surrounding erythema on left mid thigh. b/l dover ulcers NEUROLOGICAL: Cranial nerves II-XII intact. Normal speech. Normal gait. PSYCHIATRIC: Cooperative. Good eye contact. Appropriate mood and affect. SKIN: Warm, dry, normal turgor, no rashes or lesions noted, normal capillary refill. Laboratory Results - last 24 hr 06/05/17 06/05/17 17:00 17:00 WBC 9.4 RBC 3.27 L Hgb 10.7 Hct 30.6 L MCV 93.5 MCH 32.7 MCHC 34.9 RDW 24.1 H Plt Count 161 MPV 8.7 Neutrophils % 92.7 H D Lymphocytes % 5.0 L D Monocytes % 2.2 L Eosinophils % 0.0 D Basophils % 0.1 Anisocytosis 3+ Microcytosis 2+ Macrocytosis 1+ Sodium 138 Potassium 3.7 Chloride 102 Carbon Dioxide 27 Anion Gap 9 BUN 27 H Creatinine 1.5 H Creat Clearance w eGFR 33.76 Random Glucose 225 H D Calcium 8.8 Total Bilirubin 0.6 D AST 10 L D ALT 24 D Alkaline Phosphatase 71 D Total Protein 6.6 D Albumin 4.1 D Finger XR: marked soft tissue swelling, no evidence of bone destruction ASSESSMENT/PLAN: 77F w/ hx of microscopic polyangiitis (dx on 05/10), HTN, chronic venous stasis LE ulcers, polymyalgia rheumatica, hypothyroidism, and IDDM who presents with a right 3rd digit dorsal bullae and left mid-thigh erythematous lesion, found to have hypertensive urgency, XR evidence of right 3rd digit marked soft tissue swelling without bone destruction. #right 3rd digit bullae and left mid thigh ulcer -bullae with surrounding cellulitis without fever or leukocytosis in setting of immunosuppression for microscopic polyangiitis -Finger XR: marked soft tissue swelling, no evidence of bone destruction. Can order MRI to definitively rule out osteomyelitis if still suspected -vancomycin and aztreonam given -ID on board, f/u recs -wound care -area demarcated -monitor temp and wbc count -APAP for fever or pain #hypertensive urgency -IV metoprolol given -continue home hydralazine -monitor BP #microscopic polyangiitis -continue valacyclovir, prednisone, nystatin, atovaquone #tachycardia -can be 2/2 pain and anxiety -monitor #anemia -Hgb of 10.7, mcv of 93 -likely 2/2 anemia of chronic disease -f/u folate and B12 #CKD -creatinine of 1.5, stable -f/u nephro recs #IDDM -ISS, BGM ACHS #FEN/ppx -no fluids -electrolytes wnl -diabetic diet -protonix -heparin 5000U TID -Patel Glasgow MD PGY1 Visit type - Emergency Visit Emergency Visit: Yes ED Registration Date: 06/05/17 Care time: The patient presented to the Emergency Department on the above date and was hospitalized for further evaluation of their emergent condition. - New Patient This patient is new to me today: Yes Date on this admission: 06/06/17 - Critical Care Critical Care patient: No
[2017-06-06] MEDS: hydrALAZINE HCL 25 MG TABLET (FP) PO SCH ×4 (06:43→21:22)
[2017-06-06] MEDS: HEPARIN NA (PORCINE) 5,000 UNITS/ML 1ML VIAL SQ SCH ×3 (06:43→21:23)
[2017-06-06] MEDS: INSULIN SLIDING SCALE (NOVOLOG) 1 VIAL SQ SCH ×4 (06:44→21:26)
[2017-06-06] MEDS: LEVOTHYROXINE NA 100 MCG TABLET (FP) PO SCH (06:44)
[2017-06-06 07:12] LABS: BASOPHIL 0.3 % (0-2.0); EOSINOPHIL 0.2 % (0-4.5); MCH 32.1 pg (25.7-33.7); MCHC 34.5 g/dl (32.0-36.0); MEAN PLT VOLUME 8.6 fl (7.5-11.1); PLATELET COUNT 147 K/MM3 (134-434); RDW 24.4 % (11.6-15.6); WHITE BLOOD COUNT 7.1 K/mm3 (4.0-10.0)
[2017-06-06 07:42] LABS: ALBUMIN 3.1 g/dl (3.4-5.0); ANION GAP 11 (8-16); CALCIUM 7.8 mg/dL (8.5-10.1); CO2 26 mmol/L (21-32); GLUCOSE,RANDOM 164 mg/dL (74-106); MAGNESIUM 1.8 mg/dL (1.8-2.4)
[2017-06-06 07:45] LABS: ALK PHOS 55 U/L (45-117); BILIRUBIN,TOTAL 0.4 mg/dL (0.2-1.0); CREATININE 1.5 mg/dL (0.55-1.02); PHOSPHOROUS 2.7 mg/dL (2.5-4.9); SGOT/AST 10 U/L (15-37); SGPT/ALT 18 U/L (12-78); TOT PROT 5.3 g/dl (6.4-8.2)
[2017-06-06] MEDS ORDERED: POTASSIUM CHLORIDE TABS 20 MEQ TABLET.ER (FP) PO ONE (09:15)
[2017-06-06] MEDS: MULTIVITAMINS (DAILY MVI) TABLET (FP) PO SCH (09:39)
[2017-06-06] MEDS: PANTOPRAZOLE 40 MG TABLET (FP) PO SCH (09:39)
[2017-06-06] MEDS: predniSONE 20 MG TABLET (UD) PO SCH (09:39)
[2017-06-06] MEDS: CALCIUM 500MG/VIT-D 200 UNITS COMBO TABLET (FP) PO SCH (09:39)
[2017-06-06] MEDS: ASCORBIC ACID 500 MG TABLET (FP) PO SCH ×2 (09:39→21:23)
[2017-06-06] MEDS: valACYclovir HCL 500 MG TABLET (FP) PO SCH ×2 (09:39→21:23)
[2017-06-06] MEDS: DOCUSATE SODIUM 100 MG CAPSULE (FP) PO SCH ×2 (09:39→21:22)
--- NOTE | 2017-06-06 10:11 | PN ---
Physical Exam: SUBJECTIVE: Patient seen and examined at the bedside. States she is unsure of how she got the right hand middle finger edema, but believes that is may be due to the frequent BGM checks. OBJECTIVE: MRI of right hand to r/o osteomylitis Hand surgical evaluation with Dr. Gonzalo Kirk, unable to enter name into [employer], consult called, spoke to Dr. Kirk. Exam findings: (1) right hand 3rd digit dorsal bullae, edema, pain swelling of right hand 3rd digit, skin intact, no drainage, no odor: MRI or right hand ordered to r/o osteo. (2) left inner thigh round 1cm x 1cm ulceration, wound bed pink, no drainage (3) right posterior leg chronic ulceration, no drainage, wound bed pink, circular ulceration measures 0.5cm x 0.5cm. (4) Bilateral lower extremities ulcerations: not viewed, dressing clean/dry/ intact, under the care of vascular, will consult vascular for continued care Vital Signs Period Temp Pulse Resp BP Sys/Horn Pulse Ox Last 24 Hr 97.9 F-98.2 F 62-105 16-20 125-188/68-103 97-97 GENERAL: The patient is awake, alert, and fully oriented, in no acute distress. HEAD: Normal with no signs of trauma. EYES: PERRL, extraocular movements intact, sclera anicteric, conjunctiva clear. No ptosis. ENT: Ears normal, nares patent, oropharynx clear without exudates, moist mucous membranes. NECK: Trachea midline, full range of motion, supple. LUNGS: Breath sounds equal, clear to auscultation bilaterally, no wheezes, no crackles, no accessory muscle use. HEART: Regular rate and rhythm ABDOMEN: Soft, nontender, nondistended, normoactive bowel sounds, no guarding, no rebound, no hepatosplenomegaly, no masses. SKIN/EXTREMITIES: (1) right hand 3rd digit dorsal bullae, edema, pain swelling of right hand 3rd digit: MRI ordered to r/o osteo. (2) left inner thigh round 1cm x 1cm ulceration, wound bed pink, no drainage (3) right posterior leg chronic ulceration, no drainage, wound bed pink, circular 0.5cm x 0.5cm. (4) Bilateral lower extremities ulcerations: not viewed, dressing clean/dry/ intact, under the care of vascular, will consult vascular for continued care NEUROLOGICAL: Normal speech, gait not observed. PSYCH: Normal mood, normal affect. Laboratory Results - last 24 hr 06/05/17 06/05/17 06/06/17 17:00 17:00 06:00 WBC 9.4 7.1 RBC 3.27 L 2.73 L Hgb 10.7 8.8 L D Hct 30.6 L 25.4 L D MCV 93.5 93.0 MCH 32.7 32.1 MCHC 34.9 34.5 RDW 24.1 H 24.4 H Plt Count 161 147 MPV 8.7 8.6 Neutrophils % 92.7 H D 77.0 Lymphocytes % 5.0 L D 13.4 D Monocytes % 2.2 L 9.1 D Eosinophils % 0.0 D 0.2 D Basophils % 0.1 0.3 Anisocytosis 3+ Microcytosis 2+ Macrocytosis 1+ Sodium 138 Potassium 3.7 Chloride 102 Carbon Dioxide 27 Anion Gap 9 BUN 27 H Creatinine 1.5 H Creat Clearance w eGFR 33.76 Random Glucose 225 H D Calcium 8.8 Phosphorus Magnesium Total Bilirubin 0.6 D AST 10 L D ALT 24 D Alkaline Phosphatase 71 D Total Protein 6.6 D Albumin 4.1 D Vitamin B12 Serum Folate 06/06/17 06/06/17 06:00 06:00 WBC RBC Hgb Hct MCV MCH MCHC RDW Plt Count MPV Neutrophils % Lymphocytes % Monocytes % Eosinophils % Basophils % Anisocytosis Microcytosis Macrocytosis Sodium 143 Potassium 3.1 L Chloride 106 Carbon Dioxide 26 Anion Gap 11 BUN 25 H Creatinine 1.5 H Creat Clearance w eGFR 33.76 Random Glucose 164 H D Calcium 7.8 L Phosphorus 2.7 Magnesium 1.8 Total Bilirubin 0.4 D AST 10 L ALT 18 D Alkaline Phosphatase 55 D Total Protein 5.3 L Albumin 3.1 L D Vitamin B12 274 Cancelled Serum Folate 11 Cancelled Active Medications Generic Name Dose Route Start Last Admin Trade Name Freq PRN Reason Stop Dose Admin Acetaminophen 650 mg 06/05/17 23:58 Tylenol - PO Q6H PRN FEVER OR PAIN Ascorbic Acid 500 mg 06/06/17 10:00 06/06/17 09:39 Vitamin C - PO 500 mg BID MILES Administration Atovaquone 1,500 mg 06/06/17 08:00 Mepron - PO DAILY@0800 [facility] Calcium Carbonate/Cholecalciferol 2 tab 06/06/17 10:00 06/06/17 09:39 Os-Russ 500+D - PO 2 tab DAILY MILES Administration Docusate Sodium 100 mg 06/06/17 10:00 06/06/17 09:39 Colace - PO 100 mg BID MILES Administration Heparin Sodium (Porcine) 5,000 unit 06/06/17 06:00 06/06/17 06:43 Heparin - SQ 5,000 unit TID MILES Administration Hydralazine HCl 25 mg 06/06/17 06:00 06/06/17 06:43 Apresoline - PO 25 mg TID MILES Administration Insulin Aspart 1 vial 06/06/17 07:00 06/06/17 06:44 Novolog Vial Sliding Scale - SQ Not Given ACHS [facility] Protocol Insulin Detemir 7 units 06/06/17 22:00 Levemir Vial SQ HS [facility] Levothyroxine Sodium 100 mcg 06/06/17 07:00 06/06/17 06:44 Synthroid - PO 100 mcg DAILY@0700 [facility] Administration Multivitamins/Minerals/Vitamin C 1 tab 06/06/17 10:00 06/06/17 09:39 Tab-A-Vit - PO 1 tab DAILY MILES Administration Nystatin 500,000 units 06/06/17 00:00 06/06/17 06:43 Nystatin Oral Suspension - PO 500,000 units Q6HPO MILES Administration Pantoprazole Sodium 40 mg 06/06/17 10:00 06/06/17 09:39 Protonix - PO 40 mg DAILY MILES Administration Prednisone 60 mg 06/06/17 10:00 06/06/17 09:39 Deltasone - PO 60 mg DAILY MILES Administration Sodium Chloride 2 spray 06/05/17 23:48 [place] Nasal [place] - NS BID PRN NASAL CONGESTION Valacyclovir HCl 500 mg 06/06/17 10:00 06/06/17 09:39 Valtrex - PO 500 mg BID MILES Administration ASSESSMENT/PLAN:
[2017-06-06] MEDS ORDERED: LIDOCAINE HCL 1%, 10 MG/ML (20ML VIAL) ONE (11:22)
[2017-06-06] MEDS ORDERED: LIDOCAINE HCL 1%, 10 MG/ML (20ML VIAL) NR ONE (11:38)
[2017-06-06] MEDS: ATOVAQUONE 750 MG/5 ML (UNIT-DOSE PACKAGING) PO SCH (11:40)
--- NOTE | 2017-06-06 12:22 | CONSULT ---
Consult Consult Specialty:: hand surgery Referred by:: Cm Milian Reason for Consultation:: right middle finger infection - History of Present Illness Chief Complaint: right middle finger swelling History of Present Illness: 77 yo female RHD PMH microscopic polyangiitis, HTN, DM, chronic venous stasis LE ulcers, polymyalgia rheumatica, and hypothyroidism right 3rd digit dorsal bullae and left mid-thigh ulcer. She reports that the pain and swelling started 3 to 4 days ago the area where she was testing her BG with lancets. She notes the pain was gradually worsening, and was reccommended to go to the ED by her aws architect, Dr. Hamilton. She denies fevers, chills, chest pain, SOB, and abdominal pain. Her motion was also diminished on flextion, dark room attendant was affected. We were asked to assess and treat. - History Source History Provided By: Patient Limitations to Obtaining History: No Limitations - Past Medical History Cardio/Vascular: Yes: HTN. No: AFIB Pulmonary: Yes: Pneumonia, Other (hemoptysis). No: Asthma Renal/: Yes: Renal Inusuff. No: Hematuria ...: No Rheumatology: Yes: Vasculitis, Other (Polymyalgia rheumatica) Endocrine: Yes: Diabetes Mellitus, Hypothyroidism Dermatology: Yes: Other (open LE wounds) - Alcohol/Substance Use Hx Alcohol Use: No - Smoking History Smoking history: Former smoker Have you smoked in the past 12 months: No If you are a former smoker, when did you quit?: 30 yrs Home Medications - Allergies Allergies/Adverse Reactions: Allergies Allergy/AdvReac Type Severity Reaction Status Date / Time Sulfa (Sulfonamide Allergy Severe Verified 06/05/17 16:52 Antibiotics) piperacillin sodium Allergy Mild Rash Verified 06/05/17 16:52 [From Zosyn] tazobactam sodium Allergy Mild Rash Verified 06/05/17 16:52 [From Zosyn] - Home Medications Home Medications: Ambulatory Orders Levothyroxine [Synthroid -] 100 mcg PO DAILY 03/23/14 Alcohol Antiseptic Pads [Caretouch Alcohol Prep Pad] 1 each TP ACHS #1 box 04/29 Lancets/Blood Glucose Strips [Fora [id number] Strp-Lnct] 1 each MC ACHS #1 box 04/29/17 Miscellaneous Medical Supply [Glucometer Device] 1 each SQ ASDIR #1 kit Miscellaneous Medical Supply [Glucometer Test Strips #100] 1 each SQ ASDIR #1 box 04/29/17 [place], Safety [Easy Touch Fliplock Needle] 1 each ACHS #1 box 04/29/17 Valacyclovir HCl [Valtrex -] 500 mg PO BID #60 tablet 04/29/17 Ascorbic Acid [Vitamin C -] 500 mg PO BID #60 tablet 05/30/17 Atovaquone [Mepron Oral Solution -] 1,500 mg PO DAILY@0800 #300 ml 05/30/17 Calcium 500Mg/Vit-D 200 Units [Os-Russ 500+D -] 2 tab PO DAILY tab 05/30/17 Collagenase Clostridium Hist. [Santyl -] 1 applic TP DAILY #1 tube 05/30/17 Docusate Sodium [Colace -] 100 mg PO BID #60 capsule 05/30/17 Hydralazine HCl [Apresoline -] 25 mg PO TID #90 tablet 05/30/17 Insulin (Levemir) [Levemir Vial] 7 units SQ HS #1 ml 05/30/17 Insulin Sliding Scale [Novolog Vial Sliding Scale -] 1 vial SQ ACHS #1 vial 04/07 Multivitamins [Multivit ([facility] Formulary)] 1 tab PO DAILY #30 tab 05/30/17 Nystatin Oral Suspension - [Nystatin Oral Susp 960604 Units/5 ML -] 500,000 units PO Q6HPO #30 cup 05/30/17 Pantoprazole Sodium [Protonix -] 40 mg PO DAILY #30 tablet.ec 05/30/17 Prednisone [Deltasone -] 60 mg PO DAILY #90 tablet 05/30/17 Sodium Chloride Nasal [place] [[place] Nasal [place] -] 2 spray NS BID PRN spray 05/30/17 Family Disease History - Family Disease History Family Disease History: Diabetes: Mother, Brother Review of Systems - Review of Systems Constitutional: denies: Chills, Fever Eyes: denies: Blurred Vision, Recent Change in Vision HENT: reports: Difficult Swallowing. denies: Hearing Loss Neck: denies: Lumps, Swollen Glands Cardiovascular: denies: Chest Pain, Shortness of Breath Respiratory: denies: Cough, SOB Gastrointestinal: denies: Abdominal Pain, Constipation Genitourinary: denies: Burning, Discharge, Dysuria Musculoskeletal: reports: Decreased ROM (right middle finger) Integumentary: reports: Erythema, Wound (spontaneously purulent drainge dorsum right middle finger crossing DIP) Neurological: denies: Change in LOC, Change in Speech Endocrine: reports: Increased Thirst, Intolerance to Cold Hematology/Lymphatic: denies: Easily Bruised, Excessive Bleeding Psychiatric: denies: Anxiety, Depression Physical Exam Vital Signs: Vital Signs Temperature 98.0 F 06/06/17 09:37 Pulse Rate 87 06/06/17 09:37 Respiratory Rate 18 06/06/17 09:37 Blood Pressure 140/75 06/06/17 09:37 O2 Sat by Pulse Oximetry (%) 97 06/06/17 02:10 Vital Signs Period Temp Pulse Resp BP Sys/Horn Pulse Ox Last 24 Hr 97.9 F-98.2 F 62-105 16-20 125-188/68-103 97-97 Constitutional: Yes: Well Nourished, No Distress, Calm Eyes: Yes: Conjunctiva Clear, EOM Intact HENT: Yes: Atraumatic, Normocephalic Neck: Yes: Supple, Trachea Midline Cardiovascular: Yes: Regular Rate and Rhythm, Murmur (systolic murmur), S1, S2 Respiratory: Yes: Regular, CTA Bilaterally Gastrointestinal: Yes: Normal Bowel Sounds, Soft ...Rectal Exam: Yes: Deferred. No: Hemorrhoids/External, Hemorrhoids/Internal Musculoskeletal: Yes: Joint Stiffness (PIP and DIP right middle finger on flextion), Other (h/o abscesses MRSA). No: Joint Swelling Extremities: Yes: Erythema, Other (right middle finger radial paronychial infection extending dorsally across DIP 4cm X 2 cm). No: Cool, Cyanosis Edema: No Peripheral Pulses WNL: Yes (2+ radial bilateally, cap refill <2 secs all digits right hand ) Integumentary: No: Bruising, Rash Neurological: Yes: Alert, Oriented, Numbness (negative tinels bilateral wrist), Tingling (all finger tips on the pad). No: Tremors ...Motor Strength: WNL, RUE, RLE Psychiatric: Yes: Alert, Oriented Labs: CBC, BMP 06/06/17 06:00 06/06/17 06:00 CBC,CMP WBC 7.1 K/mm3 (4.0-10.0) 06/06/17 06:00 RBC 2.73 M/mm3 (3.60-5.2) L 06/06/17 06:00 Hgb 8.8 GM/dL (10.7-15.3) L D 06/06/17 06:00 Hct 25.4 % (32.4-45.2) L D 06/06/17 06:00 MCV 93.0 fl (80-96) 06/06/17 06:00 MCH 32.1 pg (25.7-33.7) 06/06/17 06:00 MCHC 34.5 g/dl (32.0-36.0) 06/06/17 06:00 RDW 24.4 % (11.6-15.6) H 06/06/17 06:00 Plt Count 147 K/MM3 (134-434) 06/06/17 06:00 MPV 8.6 fl (7.5-11.1) 06/06/17 06:00 Neutrophils % 77.0 % (42.8-82.8) 06/06/17 06:00 Lymphocytes % 13.4 % (8-40) D 06/06/17 06:00 Monocytes % 9.1 % (3.8-10.2) D 06/06/17 06:00 Eosinophils % 0.2 % (0-4.5) D 06/06/17 06:00 Basophils % 0.3 % (0-2.0) 06/06/17 06:00 Anisocytosis 3+ 06/05/17 17:00 Microcytosis 2+ 06/05/17 17:00 Macrocytosis 1+ 06/05/17 17:00 Sodium 143 mmol/L (136-145) 06/06/17 06:00 Potassium 3.1 mmol/L (3.5-5.1) L 06/06/17 06:00 Chloride 106 mmol/L (98-107) 06/06/17 06:00 Carbon Dioxide 26 mmol/L (21-32) 06/06/17 06:00 Anion Gap 11 (8-16) 06/06/17 06:00 BUN 25 mg/dL (7-18) H 06/06/17 06:00 Creatinine 1.5 mg/dL (0.55-1.02) H 06/06/17 06:00 Creat Clearance w eGFR 33.76 (>60) 06/06/17 06:00 POC Glucometer 177 UNITS (80-120) 06/06/17 11:21 Random Glucose 164 mg/dL (74-106) H D 06/06/17 06:00 Calcium 7.8 mg/dL (8.5-10.1) L 06/06/17 06:00 Phosphorus 2.7 mg/dL (2.5-4.9) 06/06/17 06:00 Magnesium 1.8 mg/dL (1.8-2.4) 06/06/17 06:00 Total Bilirubin 0.4 mg/dL (0.2-1.0) D 06/06/17 06:00 AST 10 U/L (15-37) L 06/06/17 06:00 ALT 18 U/L (12-78) D 06/06/17 06:00 Alkaline Phosphatase 55 U/L (45-117) D 06/06/17 06:00 Total Protein 5.3 g/dl (6.4-8.2) L 06/06/17 06:00 Albumin 3.1 g/dl (3.4-5.0) L D 06/06/17 06:00 Vitamin B12 274 pg/ml (180-914) 06/06/17 06:00 Serum Folate 11 ng/ml (3.1-17.5) 06/06/17 06:00 Intake & Output 06/05/17 06/06/17 06/06/17 23:59 07:59 15:59 Intake Total 150 Balance 150 Weight 168 lb 165 lb 11.2 oz Intake: Oral 150 Other: Voiding Method Toilet Toilet Toilet Height 5 ft 7 in 5 ft 7 in Body Mass Index (BMI) 26.3 25.9 Weight Measurement Method Chair Scale Imaging - Results X-ray: Report Reviewed, Image Reviewed (right middile finger swelling no fracture or dislocation seen) Problem List - Problems (1) Paronychia of right middle finger Assessment/Plan: 77yo RHD with Right middle finger paronychial infection with spontaneously dorsal drainge 4cm X2cm Bedside incision and debridement of right middle finger. Informed consent was obtained for the aforementioned procedure after discussing the risks, benefits and alternatives to the procedure with the patient. She verbalized her understanding and had her questions answered to her satisfaction. f/u wound culture empiric antibiotics per ID local wound care daily by surgeon for now elevation of the right hand above heart level PT/ OT for ROM exercise regimen Thank you for the opportunity to participate in the care of this patient. Code(s): L03.011 - CELLULITIS OF RIGHT FINGER (2) Microscopic polyangiitis Code(s): M31.7 - MICROSCOPIC POLYANGIITIS (3) Acute kidney injury Assessment/Plan: antibiotics dosing per ID Code(s): N17.9 - ACUTE KIDNEY FAILURE, UNSPECIFIED (4) Vasculitis Code(s): I77.6 - ARTERITIS, UNSPECIFIED (5) Hypertension Code(s): I10 - ESSENTIAL (PRIMARY) HYPERTENSION
--- NOTE | 2017-06-06 13:32 | PROC ---
Incision and Drainage Indication/Location: right middle finger, dorsal radial aspect Risks and Benefits Explained: Yes Consent on Chart: Yes Betadine cleansed: Yes Anesthesia: 1% Lidocaine Blade Size: 15 Drainage: 5ml purulent drainge, culture sent Irrigated with Normal Saline: No (bluntly debrided with a gauze sponge ) Plain packing: No Sterile Dressing Applied: Yes (bacitracin ointment, xeroform gauze, type 7 sponge, rolled 2" cling) - Remarks Remarks: note Staph colony plaques in the dermis when the epidermis was unroofed, measured 4cm X2cm partial thickness of the skin, crossing dorsal radial aspect over distal interphalngeal joint
--- NOTE | 2017-06-06 14:41 | CONSULT ---
Consult Consult Specialty:: Nephrology Reason for Consultation:: CKD - History of Present Illness Chief Complaint: I sent pt in for infected finger History of Present Illness: Pt is a 77 year old female with pmhx of daquan from microscopic polyangitis, htn and hypothyroidism. She came to seem in the office yesterday for follow up and was found to have an infected right middle finger. She says that it began 3 days before after she was checking her blood sugar. She is compliant with meds. She is still on prednisone. She denies hemoptysis. She denies fevers or chills. She had a bedside debridement today. - Past Medical History Cardio/Vascular: Yes: HTN Pulmonary: Yes: Pneumonia, Other (hemoptysis) Renal/: Yes: Renal Inusuff, Other (vasculitis) ...: No Rheumatology: Yes: Vasculitis, Other (Polymyalgia rheumatica) Endocrine: Yes: Diabetes Mellitus, Hypothyroidism Dermatology: Yes: Other (open LE wounds) - Alcohol/Substance Use Hx Alcohol Use: No - Smoking History Smoking history: Former smoker Have you smoked in the past 12 months: No If you are a former smoker, when did you quit?: 30 yrs Home Medications - Allergies Allergies/Adverse Reactions: Allergies Allergy/AdvReac Type Severity Reaction Status Date / Time Sulfa (Sulfonamide Allergy Severe Verified 06/05/17 16:52 Antibiotics) piperacillin sodium Allergy Mild Rash Verified 06/05/17 16:52 [From Zosyn] tazobactam sodium Allergy Mild Rash Verified 06/05/17 16:52 [From Zosyn] - Home Medications Home Medications: Ambulatory Orders Levothyroxine [Synthroid -] 100 mcg PO DAILY 03/23/14 Alcohol Antiseptic Pads [Caretouch Alcohol Prep Pad] 1 each TP ACHS #1 box 04/29 Lancets/Blood Glucose Strips [Fora [id number] Strp-Lnct] 1 each MC ACHS #1 box 04/29/17 Miscellaneous Medical Supply [Glucometer Device] 1 each SQ ASDIR #1 kit Miscellaneous Medical Supply [Glucometer Test Strips #100] 1 each SQ ASDIR #1 box 04/29/17 [place], Safety [Easy Touch Fliplock Needle] 1 each MC ACHS #1 box 04/29/17 Valacyclovir HCl [Valtrex -] 500 mg PO BID #60 tablet 04/29/17 Ascorbic Acid [Vitamin C -] 500 mg PO BID #60 tablet 05/30/17 Atovaquone [Mepron Oral Solution -] 1,500 mg PO DAILY@0800 #300 ml 05/30/17 Calcium 500Mg/Vit-D 200 Units [Os-Russ 500+D -] 2 tab PO DAILY tab 05/30/17 Collagenase Clostridium Hist. [Santyl -] 1 applic TP DAILY #1 tube 05/30/17 Docusate Sodium [Colace -] 100 mg PO BID #60 capsule 05/30/17 Hydralazine HCl [Apresoline -] 25 mg PO TID #90 tablet 05/30/17 Insulin (Levemir) [Levemir Vial] 7 units SQ HS #1 ml 05/30/17 Insulin Sliding Scale [Novolog Vial Sliding Scale -] 1 vial SQ ACHS #1 vial 04/07 Multivitamins [Multivit ([facility] Formulary)] 1 tab PO DAILY #30 tab 05/30/17 Nystatin Oral Suspension - [Nystatin Oral Susp 314257 Units/5 ML -] 500,000 units PO Q6HPO #30 cup 05/30/17 Pantoprazole Sodium [Protonix -] 40 mg PO DAILY #30 tablet.ec 05/30/17 Prednisone [Deltasone -] 60 mg PO DAILY #90 tablet 05/30/17 Sodium Chloride Nasal [place] [[place] Nasal [place] -] 2 spray NS BID PRN spray 05/30/17 Family Disease History - Family Disease History Family Disease History: Diabetes: Mother, Brother Review of Systems - Review of Systems Constitutional: reports: No Symptoms Eyes: reports: No Symptoms HENT: reports: No Symptoms Neck: reports: No Symptoms Cardiovascular: reports: No Symptoms Respiratory: reports: No Symptoms Gastrointestinal: reports: No Symptoms Genitourinary: reports: No Symptoms Musculoskeletal: reports: Other (right middle finger pain) Neurological: reports: No Symptoms Endocrine: reports: No Symptoms Physical Exam Vital Signs: Vital Signs Temperature 98.0 F 06/06/17 13:44 Pulse Rate 71 06/06/17 13:44 Respiratory Rate 18 06/06/17 13:44 Blood Pressure 141/71 06/06/17 13:44 O2 Sat by Pulse Oximetry (%) 98 06/06/17 09:00 Constitutional: Yes: Calm Eyes: Yes: Conjunctiva Clear HENT: Yes: Atraumatic Neck: Yes: Supple Cardiovascular: Yes: S1, S2 Respiratory: Yes: CTA Bilaterally Gastrointestinal: Yes: Normal Bowel Sounds, Soft Extremities: Yes: Other (right middle finger cellulits) Edema: No Neurological: Yes: Oriented Psychiatric: Yes: Oriented Labs: CBC, BMP 06/06/17 06:00 06/06/17 06:00 Imaging - Results X-ray: Report Reviewed Problem List - Problems (1) Cellulitis Code(s): L03.90 - CELLULITIS, UNSPECIFIED (2) Paronychia of right middle finger Code(s): L03.011 - CELLULITIS OF RIGHT FINGER (3) Hypertension Code(s): I10 - ESSENTIAL (PRIMARY) HYPERTENSION (4) Hypothyroid Code(s): E03.9 - HYPOTHYROIDISM, UNSPECIFIED Assessment/Plan Current Medications Generic Name Dose Route Start Last Admin Trade Name Freq PRN Reason Stop Dose Admin Acetaminophen 650 mg 06/05/17 23:58 Tylenol - PO Q6H PRN FEVER OR PAIN Ascorbic Acid 500 mg 06/06/17 10:00 06/06/17 09:39 Vitamin C - PO 500 mg BID MILES Administration Atovaquone 1,500 mg 06/06/17 08:00 06/06/17 11:40 Mepron - PO 1,500 mg DAILY@0800 MILES Administration Calcium Carbonate/Cholecalciferol 2 tab 06/06/17 10:00 06/06/17 09:39 Os-Russ 500+D - PO 2 tab DAILY MILES Administration Docusate Sodium 100 mg 06/06/17 10:00 06/06/17 09:39 Colace - PO 100 mg BID MILES Administration Heparin Sodium (Porcine) 5,000 unit 06/06/17 06:00 06/06/17 06:43 Heparin - SQ 5,000 unit TID MILES Administration Hydralazine HCl 25 mg 06/06/17 06:00 06/06/17 06:43 Apresoline - PO 25 mg TID MILES Administration Insulin Aspart 1 vial 06/06/17 07:00 06/06/17 11:39 Novolog Vial Sliding Scale - SQ Not Given ACHS [facility] Protocol Insulin Detemir 7 units 06/06/17 22:00 Levemir Vial SQ HS MILES Levothyroxine Sodium 100 mcg 06/06/17 07:00 06/06/17 06:44 Synthroid - PO 100 mcg DAILY@0700 MILES Administration Multivitamins/Minerals/Vitamin C 1 tab 06/06/17 10:00 06/06/17 09:39 Tab-A-Vit - PO 1 tab DAILY MILES Administration Nystatin 500,000 units 06/06/17 00:00 06/06/17 11:42 Nystatin Oral Suspension - PO 500,000 units Q6HPO MILES Administration Pantoprazole Sodium 40 mg 06/06/17 10:00 06/06/17 09:39 Protonix - PO 40 mg DAILY MILES Administration Prednisone 60 mg 06/06/17 10:00 06/06/17 09:39 Deltasone - PO 60 mg DAILY MILES Administration Sodium Chloride 2 spray 06/05/17 23:48 [place] Nasal [place] - NS BID PRN NASAL CONGESTION Valacyclovir HCl 500 mg 06/06/17 10:00 06/06/17 09:39 Valtrex - PO 500 mg BID MILES Administration Selected Entries 06/05/17 06/06/17 06/06/17 16:47 00:39 02:10 Blood Pressure 188/103 151/82 177/84 06/06/17 06/06/17 06/06/17 06:00 09:37 13:44 Blood Pressure 125/68 140/75 141/71 Laboratory Tests 05/23/17 06:30 Creatinine 1.9 H Impression 1. CKD 2. lower extremity ulcer 3. hypothyroid 4. HTN 5. polymyalgia 6. anemia 7. vasculitis microscopic polyangitis 8. paronychia/cellulitis if right middle finger Plan - pt is s/p debridement - renal function stable - check ua - cont abx - ID eval - follow blood cultures - pt says her blood pressures run high at home, will adjust bp meds Dr Hamilton
--- NOTE | 2017-06-06 15:06 | PN ---
Progress Note (short form) - Note Progress Note: ID Consult dictated Soft tissue infections R 3rd digit, L thigh Hx polymicrobial soft tissue infections incl. MRSA Immunocompromised state Zosyn allergy Pending c/s, empiric vancomycin / aztreonam
--- NOTE | 2017-06-06 15:47 | CONS ---
INFECTIOUS DISEASE CONSULTATION DATE OF CONSULTATION: DATE OF DICTATION: 06/06/2017 HISTORY OF PRESENT ILLNESS: Patient is a 77-year-old female evaluated for soft tissue infections. The patient has a history of microscopic polyangiitis. She is on 60 mg of prednisone daily. She reports doing a fingerstick blood sugar on her right 3rd finger approximately 3 days prior to admission. She developed a blister at that site. She subsequently developed worsening swelling, erythema, and pain. She had presented to her welfare visitor and was referred admission to the hospital. She has now been seen by Hand Surgery. A debridement was performed of the right 3rd digit. In addition, she noted a left thigh wound which was unrelated to any traumatic injury. Patient has a history of polymicrobial wound infections including MRSA. She had an ALLERGIC REACTION TO ZOSYN on a recent admission (rash). She denies any purulent wound drainage. No fever or chills. PAST MEDICAL HISTORY: Positive for microscopic polyangiitis, pulmonary-renal syndrome status post steroids, plasmapheresis, and Rituxan. Past medical history also includes hypertension, hypothyroidism, chronic venous stasis dermatitis, polymyalgia rheumatica. PAST SURGICAL HISTORY: Status post small bowel obstruction. ALLERGIES: ZOSYN (rash) and SULFA (tongue swelling). MEDICATIONS: Mepron, Valtrex, prednisone, Synthroid, Colace, Apresoline, Levemir, Protonix. SOCIAL HISTORY: Lives at home. Former smoker. SYSTEMS REVIEW: Neurologic: No loss of consciousness, seizure activity, or focal weakness. Cardiac: Negative chest pain and palpitations. Respiratory: Negative cough or sputum production. Gastrointestinal: Negative vomiting or diarrhea. Genitourinary: Negative for urinary tract infection. LABORATORY DATA: White count 7.1, hematocrit 25.4, platelet count 147. BUN 25, creatinine 1.5. PHYSICAL EXAMINATION: General: She is awake and alert. She is out of bed to chair. Vital Signs: Temperature 98.0; blood pressure 141/71; pulse 71, regular; respirations 18 per minute. HEENT: Sclerae are anicteric. Heart: Sounds S1, S2. Lungs: Clear. Abdomen: Soft. No tenderness elicited. Extremities: Negative for edema. She has chronic ulcerations present on the lower extremities. Examination of the right hand: There is a surgical dressing on the right 3rd digit. She has just undergone debridement. The dressing was left intact. Examination of the left thigh: There is a 1-cm ulcerative lesion present on the anterior aspect of the left thigh with surrounding induration. There is no expressible pus. No erythema, crepitus, or fluctuance. IMPRESSION: 1. Soft tissue infections of the right 3rd digit and left thigh. 2. History of polymicrobial soft tissue infections including methicillin-resistant Staphylococcus aureus. 3. Immunocompromised state. 4. ZOSYN ALLERGY. Empiric antibiotic coverage in this patient with ZOSYN ALLERGY with vancomycin and Azactam. Await culture results. Contact precautions. Local wound care. Will follow. Thank you for the kind referral. CRISTINO LACKEY M.D. [id number]
[2017-06-06] MEDS: AZTREONAM 1 GRAM SYRINGE 1 GM/10 ML DISP.SYRIN IVPUSH SCH (17:00)
[2017-06-06] MEDS: VANCOMYCIN 1,000 MG in DEXTROSE 5%-WATER - 250 ML IVPB SCH (17:00)
[2017-06-06] MEDS ORDERED: AZTREONAM 1 GM in DEXTROSE 5%-WATER - 50 ML IVPB SCH (18:00)
[2017-06-06] MEDS: INSULIN DETEMIR 100 UNITS/ML MDV SQ SCH (21:24)
[2017-06-06 22:14] LABS: URINE APPEARANCE CLEAR; URINE BILIRUBIN NEGATIVE (NEGATIVE); URINE BLOOD 1+ (NEGATIVE); URINE COLOR LTYELLOW; URINE GLUCOSE (UA) 3+ (NEGATIVE); URINE KETONE NEGATIVE (NEGATIVE); URINE NITRITE NEGATIVE (NEGATIVE); URINE PROTEIN 2+ (NEGATIVE); URINE UROBILINOGEN NEGATIVE mg/dL (0.2-1.0)
[2017-06-06 22:16] LABS: URINE HYALINE CAST 3 /lpf; URINE MUCUS RARE; URINE RBC 31; URINE WBC 1
--- NOTE | 2017-06-06 22:57 | CONSULT ---
Consult Consult Specialty:: Vascular Surgery - History of Present Illness History of Present Illness: 77 year old woman with chronic venous stasis ulcer of right ankle who has been treated for vasculitis. She is now readmitted with a paronychia of the right 3rd finger. She has no pain in leg. - Past Medical History Cardio/Vascular: Yes: HTN Pulmonary: Yes: Pneumonia, Other (hemoptysis) Renal/: Yes: Renal Inusuff, Other (vasculitis) ...: No Rheumatology: Yes: Vasculitis, Other (Polymyalgia rheumatica) Endocrine: Yes: Diabetes Mellitus, Hypothyroidism Dermatology: Yes: Other (open LE wounds) - Alcohol/Substance Use Hx Alcohol Use: No - Smoking History Smoking history: Former smoker Have you smoked in the past 12 months: No If you are a former smoker, when did you quit?: 30 yrs Home Medications - Allergies Allergies/Adverse Reactions: Allergies Allergy/AdvReac Type Severity Reaction Status Date / Time Sulfa (Sulfonamide Allergy Severe Verified 06/05/17 16:52 Antibiotics) piperacillin sodium Allergy Mild Rash Verified 06/05/17 16:52 [From Zosyn] tazobactam sodium Allergy Mild Rash Verified 06/05/17 16:52 [From Zosyn] - Home Medications Home Medications: Ambulatory Orders Levothyroxine [Synthroid -] 100 mcg PO DAILY 03/23/14 Alcohol Antiseptic Pads [Caretouch Alcohol Prep Pad] 1 each TP ACHS #1 box 04/29 Lancets/Blood Glucose Strips [Fora [id number] Strp-Lnct] 1 each MC ACHS #1 box 04/29/17 Miscellaneous Medical Supply [Glucometer Device] 1 each SQ ASDIR #1 kit Miscellaneous Medical Supply [Glucometer Test Strips #100] 1 each SQ ASDIR #1 box 04/29/17 [place], Safety [Easy Touch Fliplock Needle] 1 each MC ACHS #1 box 04/29/17 Valacyclovir HCl [Valtrex -] 500 mg PO BID #60 tablet 04/29/17 Ascorbic Acid [Vitamin C -] 500 mg PO BID #60 tablet 05/30/17 Atovaquone [Mepron Oral Solution -] 1,500 mg PO DAILY@0800 #300 ml 05/30/17 Calcium 500Mg/Vit-D 200 Units [Os-Russ 500+D -] 2 tab PO DAILY tab 05/30/17 Collagenase Clostridium Hist. [Santyl -] 1 applic TP DAILY #1 tube 05/30/17 Docusate Sodium [Colace -] 100 mg PO BID #60 capsule 05/30/17 Hydralazine HCl [Apresoline -] 25 mg PO TID #90 tablet 05/30/17 Insulin (Levemir) [Levemir Vial] 7 units SQ HS #1 ml 05/30/17 Insulin Sliding Scale [Novolog Vial Sliding Scale -] 1 vial SQ ACHS #1 vial 04/07 Multivitamins [Multivit ([facility] Formulary)] 1 tab PO DAILY #30 tab 05/30/17 Nystatin Oral Suspension - [Nystatin Oral Susp 572976 Units/5 ML -] 500,000 units PO Q6HPO #30 cup 05/30/17 Pantoprazole Sodium [Protonix -] 40 mg PO DAILY #30 tablet.ec 05/30/17 Prednisone [Deltasone -] 60 mg PO DAILY #90 tablet 05/30/17 Sodium Chloride Nasal [place] [[place] Nasal [place] -] 2 spray NS BID PRN spray 05/30/17 Family Disease History - Family Disease History Family Disease History: Diabetes: Mother, Brother Physical Exam Vital Signs: Vital Signs Temperature 98 F 06/06/17 18:00 Pulse Rate 67 06/06/17 21:18 Respiratory Rate 18 06/06/17 21:18 Blood Pressure 164/97 06/06/17 21:18 O2 Sat by Pulse Oximetry (%) 98 06/06/17 21:00 Edema: Yes Edema: LLE: 1+, RLE: 2+ Peripheral Pulses WNL: Yes Integumentary: Yes: Venous Stasis Changes (Ulcer right medial ankle with fibrinous base and some granulation. 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 Continue Alginate dressings with ROZINA wraps when OOB. Code(s): I83.019 - VARICOSE VEINS OF RIGHT LOWER EXTREMITY W ULCER OF UNSP SITE
[2017-06-07] MEDS: AZTREONAM 1 GRAM SYRINGE 1 GM/10 ML DISP.SYRIN IVPUSH SCH ×2 (01:29→11:04)
[2017-06-07] MEDS: VANCOMYCIN 1,000 MG in DEXTROSE 5%-WATER - 250 ML IVPB SCH ×2 (02:06→15:51)
[2017-06-07] MEDS: hydrALAZINE HCL 25 MG TABLET (FP) PO SCH ×3 (05:28→21:24)
[2017-06-07] MEDS: HEPARIN NA (PORCINE) 5,000 UNITS/ML 1ML VIAL SQ SCH ×3 (05:28→21:24)
[2017-06-07] MEDS: NYSTATIN 500,000 UNITS/5 ML SUSPENSION PO SCH ×3 (05:28→17:24)
[2017-06-07] MEDS: INSULIN SLIDING SCALE (NOVOLOG) 1 VIAL SQ SCH ×4 (06:05→21:24)
[2017-06-07] MEDS: LEVOTHYROXINE NA 100 MCG TABLET (FP) PO SCH (06:05)
[2017-06-07 07:56] LABS: MCH 32.2 pg (25.7-33.7); MCHC 34.1 g/dl (32.0-36.0); MEAN CELL VOLUME 94.7 fl (80-96); MEAN PLT VOLUME 8.7 fl (7.5-11.1); PLATELET COUNT 154 K/MM3 (134-434); RDW 24.4 % (11.6-15.6)
[2017-06-07] MEDS ORDERED: PT OWN MED DRAWER 7, Y5N ONE (08:10)
[2017-06-07] MEDS: ATOVAQUONE 750 MG/5 ML (UNIT-DOSE PACKAGING) PO SCH (08:37)
[2017-06-07 08:38] LABS: ALBUMIN 2.9 g/dl (3.4-5.0); ALK PHOS 60 U/L (45-117); ANION GAP 8 (8-16); BILIRUBIN,TOTAL 0.5 mg/dL (0.2-1.0); CALCIUM 8.1 mg/dL (8.5-10.1); CO2 27 mmol/L (21-32); CREATININE 1.6 mg/dL (0.55-1.02); GLUCOSE,RANDOM 120 mg/dL (74-106); MAGNESIUM 1.8 mg/dL (1.8-2.4); SGOT/AST 8 U/L (15-37); SGPT/ALT 18 U/L (12-78); TOT PROT 4.8 g/dl (6.4-8.2)
--- NOTE | 2017-06-07 09:28 | PN ---
Progress Note, Physician Chief Complaint: right middle finger abscess s/p I&D History of Present Illness: 77 yo female RHD s/p debridement of right middle finger. This morning pain is adequately controlled. Her motion was also diminished on flextion, clinical practice consultant was affected. - Current Medication List Current Medications: Active Medications Acetaminophen (Tylenol -) 650 mg PO Q6H PRN PRN Reason: FEVER OR PAIN Ascorbic Acid (Vitamin C -) 500 mg PO BID [facility] Last Admin: 06/06/17 21:23 Dose: 500 mg Atovaquone (Mepron -) 1,500 mg PO DAILY@0800 [facility] Last Admin: 06/07/17 08:37 Dose: 1,500 mg Calcium Carbonate/Cholecalciferol (Os-Russ 500+D -) 2 tab PO DAILY [facility] Last Admin: 06/06/17 09:39 Dose: 2 tab Docusate Sodium (Colace -) 100 mg PO BID [facility] Last Admin: 06/06/17 21:22 Dose: 100 mg Heparin Sodium (Porcine) (Heparin -) 5,000 unit SQ TID [facility] Last Admin: 06/07/17 05:28 Dose: 5,000 unit Hydralazine HCl (Apresoline -) 50 mg PO TID [facility] Last Admin: 06/07/17 05:28 Dose: 50 mg Vancomycin HCl 1,000 mg/ (Dextrose) 250 mls @ 200 mls/hr IVPB Q12H [facility] Last Admin: 06/07/17 02:06 Dose: 200 mls/hr Aztreonam (Azactam (Restricted To Id) -) 1 gm in 10 mls @ 120 mls/hr IVPUSH Q8H -IV [facility] Last Admin: 06/07/17 01:29 Dose: 120 mls/hr Insulin Aspart (Novolog Vial Sliding Scale -) 1 vial SQ ACHS [facility] PRN Reason: Protocol Last Admin: 06/07/17 06:05 Dose: Not Given Insulin Detemir (Levemir Vial) 7 units SQ HS [facility] Last Admin: 06/06/17 21:24 Dose: 7 units Levothyroxine Sodium (Synthroid -) 100 mcg PO DAILY@0700 [facility] Last Admin: 06/07/17 06:05 Dose: 100 mcg Multivitamins/Minerals/Vitamin C (Tab-A-Vit -) 1 tab PO DAILY [facility] Last Admin: 06/06/17 09:39 Dose: 1 tab Nystatin (Nystatin Oral Suspension -) 500,000 units PO Q6HPO [facility] Last Admin: 06/07/17 05:28 Dose: 500,000 units Pantoprazole Sodium (Protonix -) 40 mg PO DAILY [facility] Last Admin: 06/06/17 09:39 Dose: 40 mg Prednisone (Deltasone -) 60 mg PO DAILY [facility] Last Admin: 06/06/17 09:39 Dose: 60 mg Sodium Chloride ([place] Nasal [place] -) 2 spray NS BID PRN PRN Reason: NASAL CONGESTION Valacyclovir HCl (Valtrex -) 500 mg PO BID [facility] Last Admin: 06/06/17 21:23 Dose: 500 mg - Objective Vital Signs: Vital Signs Temperature 98 F 06/07/17 05:42 Pulse Rate 59 L 06/07/17 05:42 Respiratory Rate 20 06/07/17 05:42 Blood Pressure 132/58 06/07/17 05:42 O2 Sat by Pulse Oximetry (%) 98 06/06/17 21:00 Vital Signs Period Temp Pulse Resp BP Sys/Horn Pulse Ox Last 24 Hr 97.8 F-98.0 F 59-87 18-20 126-164/58-97 98 Constitutional: Yes: Well Nourished, No Distress Eyes: Yes: Conjunctiva Clear, EOM Intact HENT: Yes: Atraumatic, Normocephalic Neck: Yes: Supple, Trachea Midline Cardiovascular: Yes: Regular Rate and Rhythm, S1, S2 Respiratory: Yes: Regular, CTA Bilaterally Gastrointestinal: Yes: Normal Bowel Sounds, Soft Musculoskeletal: Yes: Joint Stiffness (right middle finger) Extremities: No: Cool, Cyanosis Edema: No Peripheral Pulses WNL: Yes Peripheral Pulses: Left Radial: 2+, Right Radial: 2+ Wound/Incision: Yes: Clean/Dry, Dressing Dry and Intact (replaced bacitracin and non adhering dressing applied to healthy red dermis. baterial plaques discipating, 4cm by 2cm), Dressing Removed Neurological: Yes: Alert, Oriented ...Motor Strength: WNL, LLE, RLE Psychiatric: Yes: Alert, Oriented Labs: CBC, BMP 06/07/17 06:30 06/07/17 06:30 Intake & Output 06/06/17 06/07/17 06/07/17 23:59 07:59 15:59 Intake Total 250 250 300 Balance 250 250 300 Weight 166 lb 11.2 oz Intake: IVPB 250 Oral 250 300 Other: Voiding Method Toilet Toilet # Unmeasured Voids Void 2 3 Bowel Movement No Weight Measurement Method Chair Scale Microbiology 06/05/17 20:34 Blood Culture - Preliminary Blood - Peripheral Venous NO GROWTH OBTAINED AFTER 24 HOURS, INCUBATION TO CONTINUE FOR 4 DAYS. 06/05/17 20:30 Blood Culture - Preliminary Blood - Peripheral Venous NO GROWTH OBTAINED AFTER 24 HOURS, INCUBATION TO CONTINUE FOR 4 DAYS. Problem List - Problems (1) Paronychia of right middle finger Assessment/Plan: 77yo RHD with Right middle finger paronychial infection s/p debridement f/u wound culture continue empiric antibiotics per ID dressing change daily elevation of the right hand above heart level PT/ OT for ROM exercise regimen Code(s): L03.011 - CELLULITIS OF RIGHT FINGER (2) Microscopic polyangiitis Code(s): M31.7 - MICROSCOPIC POLYANGIITIS (3) Acute kidney injury Code(s): N17.9 - ACUTE KIDNEY FAILURE, UNSPECIFIED (4) Vasculitis Code(s): I77.6 - ARTERITIS, UNSPECIFIED (5) Hypertension Code(s): I10 - ESSENTIAL (PRIMARY) HYPERTENSION
[2017-06-07] MEDS: predniSONE 20 MG TABLET (UD) PO SCH (09:30)
[2017-06-07] MEDS: valACYclovir HCL 500 MG TABLET (FP) PO SCH ×2 (09:30→21:24)
[2017-06-07] MEDS: ASCORBIC ACID 500 MG TABLET (FP) PO SCH ×2 (09:30→21:24)
[2017-06-07] MEDS: CALCIUM 500MG/VIT-D 200 UNITS COMBO TABLET (FP) PO SCH (09:30)
[2017-06-07] MEDS: DOCUSATE SODIUM 100 MG CAPSULE (FP) PO SCH ×2 (09:31→21:24)
[2017-06-07] MEDS: PANTOPRAZOLE 40 MG TABLET (FP) PO SCH (09:31)
[2017-06-07] MEDS: MULTIVITAMINS (DAILY MVI) TABLET (FP) PO SCH (09:31)
[2017-06-07 11:22] LABS: TOTAL CELLS COUNTED 100
[2017-06-07] MEDS ORDERED: oxyCODONE HCL 5 MG TABLET PO PRN (13:52)
--- NOTE | 2017-06-07 14:38 | PN ---
Progress Note, Physician History of Present Illness: OOB in chair No c/o R hand or L thigh pain No fever/ chills WBC WNL Wound c/s presumed MRSA - Current Medication List Current Medications: Active Medications Acetaminophen (Tylenol -) 650 mg PO Q6H PRN PRN Reason: FEVER OR PAIN Ascorbic Acid (Vitamin C -) 500 mg PO BID [facility] Last Admin: 06/07/17 09:30 Dose: 500 mg Atovaquone (Mepron -) 1,500 mg PO DAILY@0800 [facility] Last Admin: 06/07/17 08:37 Dose: 1,500 mg Calcium Carbonate/Cholecalciferol (Os-Russ 500+D -) 2 tab PO DAILY [facility] Last Admin: 06/07/17 09:30 Dose: 2 tab Docusate Sodium (Colace -) 100 mg PO BID [facility] Last Admin: 06/07/17 09:31 Dose: 100 mg Heparin Sodium (Porcine) (Heparin -) 5,000 unit SQ TID [facility] Last Admin: 06/07/17 05:28 Dose: 5,000 unit Hydralazine HCl (Apresoline -) 50 mg PO TID [facility] Last Admin: 06/07/17 05:28 Dose: 50 mg Vancomycin HCl 1,000 mg/ (Dextrose) 250 mls @ 200 mls/hr IVPB Q12H [facility] Last Admin: 06/07/17 02:06 Dose: 200 mls/hr Aztreonam (Azactam (Restricted To Id) -) 1 gm in 10 mls @ 120 mls/hr IVPUSH Q8H -IV [facility] Last Admin: 06/07/17 11:04 Dose: 120 mls/hr Insulin Aspart (Novolog Vial Sliding Scale -) 1 vial SQ ACHS [facility] PRN Reason: Protocol Last Admin: 06/07/17 12:25 Dose: 2 units Insulin Detemir (Levemir Vial) 7 units SQ HS [facility] Last Admin: 06/06/17 21:24 Dose: 7 units Levothyroxine Sodium (Synthroid -) 100 mcg PO DAILY@0700 [facility] Last Admin: 06/07/17 06:05 Dose: 100 mcg Multivitamins/Minerals/Vitamin C (Tab-A-Vit -) 1 tab PO DAILY [facility] Last Admin: 06/07/17 09:31 Dose: 1 tab Nystatin (Nystatin Oral Suspension -) 500,000 units PO Q6HPO [facility] Last Admin: 06/07/17 12:25 Dose: 500,000 units Oxycodone HCl (Roxicodone -) 5 mg PO Q6H PRN PRN Reason: PAIN Pantoprazole Sodium (Protonix -) 40 mg PO DAILY [facility] Last Admin: 06/07/17 09:31 Dose: 40 mg Prednisone (Deltasone -) 60 mg PO DAILY [facility] Last Admin: 06/07/17 09:30 Dose: 60 mg Sodium Chloride ([place] Nasal [place] -) 2 spray NS BID PRN PRN Reason: NASAL CONGESTION Valacyclovir HCl (Valtrex -) 500 mg PO BID [facility] Last Admin: 06/07/17 09:30 Dose: 500 mg - Objective Vital Signs: Vital Signs Temperature 98.1 F 06/07/17 13:52 Pulse Rate 80 06/07/17 13:52 Respiratory Rate 18 06/07/17 13:52 Blood Pressure 150/77 06/07/17 13:52 O2 Sat by Pulse Oximetry (%) 98 06/07/17 09:00 Constitutional: Yes: No Distress Eyes: Yes: Conjunctiva Clear Cardiovascular: Yes: Regular Rate and Rhythm, S1, S2 Respiratory: Yes: CTA Bilaterally Gastrointestinal: Yes: Normal Bowel Sounds, Soft, Tenderness Extremities: Yes: Other (R 3rd finger with dressing in place L thigh wound with serous drainage) Labs: CBC, BMP 06/07/17 06:30 06/07/17 06:30 Assessment/Plan S/P I&D R 3rd digit + wound c/s presumed MRSA Immunocompromised state Multiple antibiotic allergies Await c/s Continue vancomycin D/C aztreonam Local wound care
--- NOTE | 2017-06-07 15:36 | CONSULT ---
Consult - text type - Consultation Consultation Note: Patient is a 77F with history of microscopic polyangiitis, htn and hypothyroidism here complaining of bullae on her right middle finger. 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 She says that she developed a blister on her right 3rd digit two days ago. It then expanded to cover 4cm of the distal aspect of her finger with surrounding erythema. It is not painful. She is also complaining of a lesion to the medial aspect of her left medial thigh. This lesion started two days ago as a preciado , which then broke open and developed into an area of surrounding erythema. Patient denies any signs of systemic infection, including nausea, vomiting, fevers and chills. Patient also has an ulcer on her left leg, which she says is healing. She states that she has venous insufficiency on her right leg, which has been improving as well. Allergies/Adverse Reactions: Allergies Allergy/AdvReac Type Severity Reaction Status Date / Time Sulfa (Sulfonamide Allergy Severe Verified 06/05/17 16:52 Antibiotics) piperacillin sodium Allergy Mild Rash Verified 06/05/17 16:52 [From Zosyn] tazobactam sodium Allergy Mild Rash Verified 06/05/17 16:52 [From Zosyn] Home Medications: Ambulatory Orders Levothyroxine [Synthroid -] 100 mcg PO DAILY 03/23/14 Alcohol Antiseptic Pads [Caretouch Alcohol Prep Pad] 1 each TP ACHS #1 box 04/29 Lancets/Blood Glucose Strips [Fora [id number] Strp-Lnct] 1 each MC ACHS #1 box 04/29/17 Miscellaneous Medical Supply [Glucometer Device] 1 each SQ ASDIR #1 kit Miscellaneous Medical Supply [Glucometer Test Strips #100] 1 each SQ ASDIR #1 box 04/29/17 [place], Safety [Easy Touch Fliplock Needle] 1 each ACHS #1 box 04/29/17 Valacyclovir HCl [Valtrex -] 500 mg PO BID #60 tablet 04/29/17 Ascorbic Acid [Vitamin C -] 500 mg PO BID #60 tablet 05/30/17 Atovaquone [Mepron Oral Solution -] 1,500 mg PO DAILY@0800 #300 ml 05/30/17 Calcium 500Mg/Vit-D 200 Units [Os-Russ 500+D -] 2 tab PO DAILY tab 05/30/17 Collagenase Clostridium Hist. [Santyl -] 1 applic TP DAILY #1 tube 05/30/17 Docusate Sodium [Colace -] 100 mg PO BID #60 capsule 05/30/17 Hydralazine HCl [Apresoline -] 25 mg PO TID #90 tablet 05/30/17 Insulin (Levemir) [Levemir Vial] 7 units SQ HS #1 ml 05/30/17 Insulin Sliding Scale [Novolog Vial Sliding Scale -] 1 vial SQ ACHS #1 vial 04/07 Multivitamins [Multivit ([facility] Formul[facility])] 1 tab PO DAILY #30 tab 05/30/17 Nystatin Oral Suspension - [Nystatin Oral Susp 371735 Units/5 ML -] 500,000 units PO Q6HPO #30 cup 05/30/17 Pantoprazole Sodium [Protonix -] 40 mg PO DAILY #30 tablet.ec 05/30/17 Prednisone [Deltasone -] 60 mg PO DAILY #90 tablet 05/30/17 Sodium Chloride Nasal [place] [[place] Nasal [place] -] 2 spray NS BID PRN spray 05/30/17 PAst Medical History HTN: Yes Thyroid Disease: Yes (HYPO) Other medical history: MICROSCOPIC POLYANGITIS - Surgical History Abdominal Surgery: Yes (INTESTINAL OBSTRUCTION) - Suicide/Smoking/Psychosocial Hx Smoking History: Former smoker Active Medications Generic Name Dose Route Start Last Admin Trade Name Freq PRN Reason Stop Dose Admin Acetaminophen 650 mg 06/05/17 23:58 Tylenol - PO Q6H PRN FEVER OR PAIN Ascorbic Acid 500 mg 06/06/17 10:00 06/07/17 09:30 Vitamin C - PO 500 mg BID MILES Administration Atovaquone 1,500 mg 06/06/17 08:00 06/07/17 08:37 Mepron - PO 1,500 mg DAILY@0800 [facility] Administration Bacitracin/Polymyxin B Sulfate 1 applic 06/07/17 14:45 Polysporin Ointment - TP DAILY MILES Calcium Carbonate/Cholecalciferol 2 tab 06/06/17 10:00 06/07/17 09:30 Os-Russ 500+D - PO 2 tab DAILY MILES Administration Docusate Sodium 100 mg 06/06/17 10:00 06/07/17 09:31 Colace - PO 100 mg BID MILES Administration Heparin Sodium (Porcine) 5,000 unit 06/06/17 06:00 06/07/17 14:32 Heparin - SQ 5,000 unit TID MILES Administration Hydralazine HCl 50 mg 06/06/17 14:47 06/07/17 14:32 Apresoline - PO 50 mg TID MILES Administration Vancomycin HCl 1,000 mg/ 250 mls @ 200 mls/hr 06/06/17 15:00 06/07/17 02:06 Dextrose IVPB 200 mls/hr Q12H MILES Administration Insulin Aspart 1 vial 06/06/17 07:00 06/07/17 12:25 Novolog Vial Sliding Scale - SQ 2 units ACHS MILES Administration Protocol Insulin Detemir 7 units 06/06/17 22:00 06/06/17 21:24 Levemir Vial SQ 7 units HS MILES Administration Levothyroxine Sodium 100 mcg 06/06/17 07:00 06/07/17 06:05 Synthroid - PO 100 mcg DAILY@0700 [facility] Administration Multivitamins/Minerals/Vitamin C 1 tab 06/06/17 10:00 06/07/17 09:31 Tab-A-Vit - PO 1 tab DAILY MILES Administration Nystatin 500,000 units 06/06/17 00:00 06/07/17 12:25 Nystatin Oral Suspension - PO 500,000 units Q6HPO MILES Administration Oxycodone HCl 5 mg 06/07/17 13:52 Roxicodone - PO Q6H PRN PAIN Pantoprazole Sodium 40 mg 06/06/17 10:00 06/07/17 09:31 Protonix - PO 40 mg DAILY MILES Administration Prednisone 60 mg 06/06/17 10:00 06/07/17 09:30 Deltasone - PO 60 mg DAILY MILES Administration Sodium Chloride 2 spray 06/05/17 23:48 [place] Nasal [place] - NS BID PRN NASAL CONGESTION Valacyclovir HCl 500 mg 06/06/17 10:00 06/07/17 09:30 Valtrex - PO 500 mg BID MILES Administration *Physical Exam - Vital Signs Last Vital Signs Temp Pulse Resp BP Pulse Ox 98.1 F 105 H 20 188/103 97 06/05/17 16:47 06/05/17 16:47 06/05/17 16:47 06/05/17 16:47 06/05/17 16:47 Cor: RSR, No murmurs, No gallops Lungs: Clear to P&A Abd: Soft, Normal bowel sounds, No organomegaly Ext:No significant edema Skin: No rashes, Integument intact Additional order review: Laboratory Results 06/05/17 17:00 Sodium 138 Potassium 3.7 Chloride 102 Carbon Dioxide 27 Anion Gap 9 BUN 27 H Creatinine 1.5 H Creat Clearance w eGFR 33.76 Random Glucose 225 H D Calcium 8.8 Total Bilirubin 0.6 D AST 10 L D ALT 24 D Alkaline Phosphatase 71 D Total Protein 6.6 D Albumin 4.1 D 06/05/17 17:00 RBC 3.27 L MCV 93.5 MCHC 34.9 RDW 24.1 H MPV 8.7 Neutrophils % 92.7 H D Lymphocytes % 5.0 L D Monocytes % 2.2 L Eosinophils % 0.0 D Basophils % 0.1 A/P 77F with history of microscopic polyangiitis, htn and hypothyroidism here today with lesions over her finger/hand S/P I&D R 3rd digit + wound c/s presumed MRSA Immunocompromised state Multiple antibiotic allergies Await c/s Continue vancomycin Local wound care anemia of chronic disease due to CKD check iron studies Recommendrd that patient get colonoscopy, screening
--- NOTE | 2017-06-07 16:59 | PN ---
Physical Exam: SUBJECTIVE: Patient seen and examined at the bedside. s/p right hand middle digit debridement. OBJECTIVE: Vital Signs Period Temp Pulse Resp BP Sys/Horn Pulse Ox Last 24 Hr 97.8 F-98.2 F 59-80 18-20 126-164/58-97 98-98 GENERAL: The patient is awake, alert, and fully oriented, in no acute distress. HEAD: Normal with no signs of trauma. EYES: PERRL, extraocular movements intact, sclera anicteric, conjunctiva clear. No ptosis. ENT: Ears normal, nares patent, oropharynx clear without exudates, moist mucous membranes. NECK: Trachea midline, full range of motion, supple. LUNGS: Breath sounds equal, clear to auscultation bilaterally, no wheezes, no crackles, no accessory muscle use. HEART: Regular rate and rhythm ABDOMEN: Soft, nontender, nondistended, normoactive bowel sounds, no guarding, no rebound, no hepatosplenomegaly, no masses. SKIN/EXTREMITIES: (1) right hand 3rd digit dorsal bullae, edema, pain swelling of right hand 3rd digit: MRI negative for osteo (2) left inner thigh round 1cm x 1cm ulceration, wound bed pink, no drainage (3) right posterior leg chronic ulceration, no drainage, wound bed pink, circular 0.5cm x 0.5cm. (4) Bilateral lower extremities ulcerations: not viewed, dressing clean/dry/ intact, under the care of vascular, will consult vascular for continued care NEUROLOGICAL: Normal speech, gait not observed. PSYCH: Normal mood, normal affect. Laboratory Results - last 24 hr 06/06/17 06/06/17 06/06/17 16:59 18:20 20:55 WBC RBC Hgb Hct MCV MCH MCHC RDW Plt Count MPV Total Counted Neutrophils % Neutrophils % (Manual) Lymphocytes % Lymphocytes % (Manual) Monocytes % (Manual) Sodium Potassium Chloride Carbon Dioxide Anion Gap BUN Creatinine Creat Clearance w eGFR POC Glucometer 286 193 Random Glucose Calcium Magnesium Total Bilirubin AST ALT Alkaline Phosphatase Total Protein Albumin Urine Color Ltyellow Urine Appearance Clear Urine pH 5.0 Ur Specific [place] 1.014 Urine Protein 2+ H Urine Glucose (UA) 3+ H Urine Ketones Negative Urine Blood 1+ H Urine Nitrite Negative Urine Bilirubin Negative Urine Urobilinogen Negative Urine WBC (Auto) 1 Urine RBC (Auto) 31 Hyaline Casts 3 Urine Mucus Rare 06/07/17 06/07/17 06/07/17 05:29 06:30 06:30 WBC 7.0 RBC 2.65 L Hgb 8.6 L Hct 25.1 L MCV 94.7 MCH 32.2 MCHC 34.1 RDW 24.4 H Plt Count 154 MPV 8.7 Total Counted 100 Neutrophils % No Result Required. Neutrophils % (Manual) 81.0 Lymphocytes % No Result Required. Lymphocytes % (Manual) 13.0 D Monocytes % (Manual) 6 Sodium 141 Potassium 3.8 D Chloride 106 Carbon Dioxide 27 Anion Gap 8 BUN 26 H Creatinine 1.6 H Creat Clearance w eGFR 31.34 POC Glucometer 140 Random Glucose 120 H D Calcium 8.1 L Magnesium 1.8 Total Bilirubin 0.5 D AST 8 L ALT 18 Alkaline Phosphatase 60 Total Protein 4.8 L Albumin 2.9 L Urine Color Urine Appearance Urine pH Ur Specific [place] Urine Protein Urine Glucose (UA) Urine Ketones Urine Blood Urine Nitrite Urine Bilirubin Urine Urobilinogen Urine WBC (Auto) Urine RBC (Auto) Hyaline Casts Urine Mucus 06/07/17 11:52 WBC RBC Hgb Hct MCV MCH MCHC RDW Plt Count MPV Total Counted Neutrophils % Neutrophils % (Manual) Lymphocytes % Lymphocytes % (Manual) Monocytes % (Manual) Sodium Potassium Chloride Carbon Dioxide Anion Gap BUN Creatinine Creat Clearance w eGFR POC Glucometer 225 Random Glucose Calcium Magnesium Total Bilirubin AST ALT Alkaline Phosphatase Total Protein Albumin Urine Color Urine Appearance Urine pH Ur Specific [place] Urine Protein Urine Glucose (UA) Urine Ketones Urine Blood Urine Nitrite Urine Bilirubin Urine Urobilinogen Urine WBC (Auto) Urine RBC (Auto) Hyaline Casts Urine Mucus Active Medications Generic Name Dose Route Start Last Admin Trade Name Julioq PRN Reason Stop Dose Admin Acetaminophen 650 mg 06/05/17 23:58 Tylenol - PO Q6H PRN FEVER OR PAIN Ascorbic Acid 500 mg 06/06/17 10:00 06/07/17 09:30 Vitamin C - PO 500 mg BID MILES Administration Atovaquone 1,500 mg 06/06/17 08:00 06/07/17 08:37 Mepron - PO 1,500 mg DAILY@0800 [facility] Administration Bacitracin/Polymyxin B Sulfate 1 applic 06/07/17 14:45 Polysporin Ointment - TP DAILY [facility] Calcium Carbonate/Cholecalciferol 2 tab 06/06/17 10:00 06/07/17 09:30 Os-Russ 500+D - PO 2 tab DAILY [facility] Administration Docusate Sodium 100 mg 06/06/17 10:00 06/07/17 09:31 Colace - PO 100 mg BID [facility] Administration Heparin Sodium (Porcine) 5,000 unit 06/06/17 06:00 06/07/17 14:32 Heparin - SQ 5,000 unit TID MILES Administration Hydralazine HCl 50 mg 06/06/17 14:47 06/07/17 14:32 Apresoline - PO 50 mg TID MILES Administration Vancomycin HCl 1,000 mg/ 250 mls @ 200 mls/hr 06/06/17 15:00 06/07/17 15:51 Dextrose IVPB 200 mls/hr Q12H MILES Administration Insulin Aspart 1 vial 06/06/17 07:00 06/07/17 12:25 Novolog Vial Sliding Scale - SQ 2 units ACHS MILES Administration Protocol Insulin Detemir 7 units 06/06/17 22:00 06/06/17 21:24 Levemir Vial SQ 7 units HS MILES Administration Levothyroxine Sodium 100 mcg 06/06/17 07:00 06/07/17 06:05 Synthroid - PO 100 mcg DAILY@0700 [facility] Administration Multivitamins/Minerals/Vitamin C 1 tab 06/06/17 10:00 06/07/17 09:31 Tab-A-Vit - PO 1 tab DAILY [facility] Administration Nystatin 500,000 units 06/06/17 00:00 06/07/17 12:25 Nystatin Oral Suspension - PO 500,000 units Q6HPO MILES Administration Oxycodone HCl 5 mg 06/07/17 13:52 Roxicodone - PO Q6H PRN PAIN Pantoprazole Sodium 40 mg 06/06/17 10:00 06/07/17 09:31 Protonix - PO 40 mg DAILY MIL[facility] Administration Prednisone 60 mg 06/06/17 10:00 06/07/17 09:30 Deltasone - PO 60 mg DAILY [facility] Administration Sodium Chloride 2 spray 06/05/17 23:48 [place] Nasal [place] - NS BID PRN NASAL CONGESTION Valacyclovir HCl 500 mg 06/06/17 10:00 06/07/17 09:30 Valtrex - PO 500 mg BID MILES Administration ASSESSMENT/PLAN: Patient is an 77 year-old female with a significant past medical history of HTN , chronic venous stasis lower extremity ulcers, polymyaglia rheumatica, and hypothyroidism. She presents to the hospital on 06/05/17 with cellulitis of her right hand middle finger. During previous two recent admission, patient was diagnosed with microscopic polyangitis. She is s/p 7 sessions of plasmapheresis and also received Rituxan infusion as an outpatient Imaging: Vascular study 05/14/2017 shows thrombosis involving the right mid and distal grater saphenous vein consistent with superficial venous thromboses, no evidence of DVT on right or left lower ext. MRI of right hand: negative for osteo. ID: Cellulitis of right hand middle digit, s/p debridement on 06/07/2017 Wound culture shows possible MRSA On Vancomycin per ID Cellulitis likely secondary to frequent use of same finger for BGM checks Patient states the lancets needles of middle digit caused her cellulitis: gentler lancets ordered (similar to ones used in hospital) Ongoing OT Negative osteomylitis on MRI Rheumatology: Microscopic polyangitis, chronic s/p plasmaphresis and Rituxan therapy On Prednisone 60mg daily as per rheumatology Hematology following On Valtrex BID, On Mepron Pulmonary: Hemoptysis, history, no episodes of hemoptysis on this admission Lungs clear to auscultation Hematology: Anemia of chronic disease, acute on chronic hmg/hct low stable, monitor Thrombocytopenia, acute on chronic monitor Renal: Chronic Kidney Disease, chronic Monitor creatinine, renal following Vascular: Multiple wounds (1) right hand 3rd digit dorsal bullae, edema, pain swelling of right hand 3rd digit: MRI negative for osteo (2) left inner thigh round 1cm x 1cm ulceration, wound bed pink, no drainage (3) right posterior leg chronic ulceration, no drainage, wound bed pink, circular 0.5cm x 0.5cm. (4) Bilateral lower extremities ulcerations: not viewed, dressing clean/dry/ intact, under the care of vascular, will consult vascular for continued care Chronic LE venous stasis ulcers, followed by vascular Vascular study 05/14/2017 shows thrombosis involving the right mid and distal grater saphenous vein consistent with superficial venous thromboses, no evidence of DVT on right or left lower ext. Heparin TID Endocrine: Hypothyroidism, chronic On home dose of Synthroid of 100mcgs Hyperglycemia, likely steroid induced Novolog, BGMs F.E.N. Fluids: tolerating PO Electrolytes: monitor Prophylaxis: DVT: ambulatory, heparin TID GI: Protonix while on steriods Dispo: full code. Visit type - Emergency Visit Emergency Visit: Yes ED Registration Date: 06/05/17 Care time: The patient presented to the Emergency Department on the above date and was hospitalized for further evaluation of their emergent condition. - New Patient This patient is new to me today: No - Critical Care Critical Care patient: No - Discharge Referral Referred to [facility] Med P.C.: No
--- NOTE | 2017-06-07 17:03 | PN ---
Progress Note, Physician History of Present Illness: Pt seen and examined at bedside. She feels well. She denies fevers or chills. She has no pain in her finger. - Current Medication List Current Medications: Active Medications Acetaminophen (Tylenol -) 650 mg PO Q6H PRN PRN Reason: FEVER OR PAIN Ascorbic Acid (Vitamin C -) 500 mg PO BID [facility] Last Admin: 06/07/17 09:30 Dose: 500 mg Atovaquone (Mepron -) 1,500 mg PO DAILY@0800 [facility] Last Admin: 06/07/17 08:37 Dose: 1,500 mg Bacitracin/Polymyxin B Sulfate (Polysporin Ointment -) 1 applic TP DAILY [facility] Calcium Carbonate/Cholecalciferol (Os-Russ 500+D -) 2 tab PO DAILY [facility] Last Admin: 06/07/17 09:30 Dose: 2 tab Docusate Sodium (Colace -) 100 mg PO BID [facility] Last Admin: 06/07/17 09:31 Dose: 100 mg Heparin Sodium (Porcine) (Heparin -) 5,000 unit SQ TID [facility] Last Admin: 06/07/17 14:32 Dose: 5,000 unit Hydralazine HCl (Apresoline -) 50 mg PO TID [facility] Last Admin: 06/07/17 14:32 Dose: 50 mg Vancomycin HCl 1,000 mg/ (Dextrose) 250 mls @ 200 mls/hr IVPB Q12H [facility] Last Admin: 06/07/17 15:51 Dose: 200 mls/hr Insulin Aspart (Novolog Vial Sliding Scale -) 1 vial SQ ACHS [facility] PRN Reason: Protocol Last Admin: 06/07/17 12:25 Dose: 2 units Insulin Detemir (Levemir Vial) 7 units SQ HS [facility] Last Admin: 06/06/17 21:24 Dose: 7 units Levothyroxine Sodium (Synthroid -) 100 mcg PO DAILY@0700 [facility] Last Admin: 06/07/17 06:05 Dose: 100 mcg Multivitamins/Minerals/Vitamin C (Tab-A-Vit -) 1 tab PO DAILY [facility] Last Admin: 06/07/17 09:31 Dose: 1 tab Nystatin (Nystatin Oral Suspension -) 500,000 units PO Q6HPO [facility] Last Admin: 06/07/17 12:25 Dose: 500,000 units Oxycodone HCl (Roxicodone -) 5 mg PO Q6H PRN PRN Reason: PAIN Pantoprazole Sodium (Protonix -) 40 mg PO DAILY [facility] Last Admin: 06/07/17 09:31 Dose: 40 mg Prednisone (Deltasone -) 60 mg PO DAILY [facility] Last Admin: 06/07/17 09:30 Dose: 60 mg Sodium Chloride ([place] Nasal [place] -) 2 spray NS BID PRN PRN Reason: NASAL CONGESTION Valacyclovir HCl (Valtrex -) 500 mg PO BID [facility] Last Admin: 06/07/17 09:30 Dose: 500 mg - Objective Vital Signs: Vital Signs Temperature 98.1 F 06/07/17 13:52 Pulse Rate 80 06/07/17 13:52 Respiratory Rate 18 06/07/17 13:52 Blood Pressure 150/77 06/07/17 13:52 O2 Sat by Pulse Oximetry (%) 98 06/07/17 09:00 Constitutional: Yes: Calm Eyes: Yes: Conjunctiva Clear Cardiovascular: Yes: S1, S2 Respiratory: Yes: CTA Bilaterally Gastrointestinal: Yes: Normal Bowel Sounds, Soft Genitourinary: Yes: WNL Extremities: Yes: Other (right middle finger cellulitis) Edema: Yes Edema: LLE: Trace, RLE: Trace Neurological: Yes: Oriented Psychiatric: Yes: Oriented Labs: CBC, BMP 06/07/17 06:30 06/07/17 06:30 Problem List - Problems (1) Cellulitis Code(s): L03.90 - CELLULITIS, UNSPECIFIED (2) Paronychia of right middle finger Code(s): L03.011 - CELLULITIS OF RIGHT FINGER (3) Hypertension Code(s): I10 - ESSENTIAL (PRIMARY) HYPERTENSION (4) Hypothyroid Code(s): E03.9 - HYPOTHYROIDISM, UNSPECIFIED Assessment/Plan Current Medications Generic Name Dose Route Start Last Admin Trade Name Freq PRN Reason Stop Dose Admin Acetaminophen 650 mg 06/05/17 23:58 Tylenol - PO Q6H PRN FEVER OR PAIN Ascorbic Acid 500 mg 06/06/17 10:00 06/07/17 09:30 Vitamin C - PO 500 mg BID [facility] Administration Atovaquone 1,500 mg 06/06/17 08:00 06/07/17 08:37 Mepron - PO 1,500 mg DAILY@0800 [facility] Administration Bacitracin/Polymyxin B Sulfate 1 applic 06/07/17 14:45 Polysporin Ointment - TP DAILY [facility] Calcium Carbonate/Cholecalciferol 2 tab 06/06/17 10:00 06/07/17 09:30 Os-Russ 500+D - PO 2 tab DAILY [facility] Administration Docusate Sodium 100 mg 06/06/17 10:00 06/07/17 09:31 Colace - PO 100 mg BID [facility] Administration Heparin Sodium (Porcine) 5,000 unit 06/06/17 06:00 06/07/17 14:32 Heparin - SQ 5,000 unit TID [facility] Administration Hydralazine HCl 50 mg 06/06/17 14:47 06/07/17 14:32 Apresoline - PO 50 mg TID [facility] Administration Vancomycin HCl 1,000 mg/ 250 mls @ 200 mls/hr 06/06/17 15:00 06/07/17 15:51 Dextrose IVPB 200 mls/hr Q12H [facility] Administration Insulin Aspart 1 vial 06/06/17 07:00 06/07/17 12:25 Novolog Vial Sliding Scale - SQ 2 units ACHS [facility] Administration Protocol Insulin Detemir 7 units 06/06/17 22:00 06/06/17 21:24 Levemir Vial SQ 7 units HS [facility] Administration Levothyroxine Sodium 100 mcg 06/06/17 07:00 06/07/17 06:05 Synthroid - PO 100 mcg DAILY@0700 [facility] Administration Multivitamins/Minerals/Vitamin C 1 tab 06/06/17 10:00 06/07/17 09:31 Tab-A-Vit - PO 1 tab DAILY [facility] Administration Nystatin 500,000 units 06/06/17 00:00 06/07/17 12:25 Nystatin Oral Suspension - PO 500,000 units Q6HPO [facility] Administration Oxycodone HCl 5 mg 06/07/17 13:52 Roxicodone - PO Q6H PRN PAIN Pantoprazole Sodium 40 mg 06/06/17 10:00 06/07/17 09:31 Protonix - PO 40 mg DAILY [facility] Administration Prednisone 60 mg 06/06/17 10:00 06/07/17 09:30 Deltasone - PO 60 mg DAILY [facility] Administration Sodium Chloride 2 spray 06/05/17 23:48 [place] Nasal [place] - NS BID PRN NASAL CONGESTION Valacyclovir HCl 500 mg 06/06/17 10:00 06/07/17 09:30 Valtrex - PO 500 mg BID [facility] Administration Impression 1. CKD 2. lower extremity ulcer 3. hypothyroid 4. HTN 5. polymyalgia 6. anemia 7. vasculitis microscopic polyangitis 8. paronychia/cellulitis if right middle finger Plan - cont abx - hydralazine dose increase - monitor bp - recommend an annabel to help for proteinuria, pt will think about. Will likely start it after she is done with abx - urine studies improved - follow blood cultures Dr Hamilton
[2017-06-07 17:37] LABS: URINE LEUK ESTERASE Negative (NEGATIVE)
[2017-06-07] MEDS: BACITRACIN/POLYMYXIN B SULFATE 15 GM TUBE TP SCH (19:38)
[2017-06-07] MEDS ORDERED: INSULIN (NOVOLOG) ASPART 100 UNITS/ML 10ML VIAL ONE (20:30)
[2017-06-07] MEDS: INSULIN DETEMIR 100 UNITS/ML MDV SQ SCH (21:24)
[2017-06-08] MEDS: NYSTATIN 500,000 UNITS/5 ML SUSPENSION PO SCH ×4 (00:01→17:14)
[2017-06-08] MEDS: VANCOMYCIN 1,000 MG in DEXTROSE 5%-WATER - 250 ML IVPB SCH ×2 (02:58→14:31)
[2017-06-08] MEDS: INSULIN SLIDING SCALE (NOVOLOG) 1 VIAL SQ SCH ×4 (06:32→21:28)
[2017-06-08] MEDS: HEPARIN NA (PORCINE) 5,000 UNITS/ML 1ML VIAL SQ SCH ×3 (06:33→21:28)
[2017-06-08] MEDS: hydrALAZINE HCL 25 MG TABLET (FP) PO SCH ×3 (06:33→21:28)
[2017-06-08] MEDS: LEVOTHYROXINE NA 100 MCG TABLET (FP) PO SCH (06:33)
--- NOTE | 2017-06-08 07:39 | PN ---
Progress Note, Physician Chief Complaint: right middle finger abscess s/p I&D History of Present Illness: 77 yo female RHD s/p debridement of right middle finger. This morning pain is adequately controlled. 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 - Current Medication List Current Medications: Active Medications Acetaminophen (Tylenol -) 650 mg PO Q6H PRN PRN Reason: FEVER OR PAIN Ascorbic Acid (Vitamin C -) 500 mg PO BID [facility] Last Admin: 06/07/17 21:24 Dose: 500 mg Atovaquone (Mepron -) 1,500 mg PO DAILY@0800 [facility] Last Admin: 06/07/17 08:37 Dose: 1,500 mg Bacitracin/Polymyxin B Sulfate (Polysporin Ointment -) 1 applic TP DAILY [facility] Last Admin: 06/07/17 19:38 Dose: Not Given Calcium Carbonate/Cholecalciferol (Os-Russ 500+D -) 2 tab PO DAILY [facility] Last Admin: 06/07/17 09:30 Dose: 2 tab Docusate Sodium (Colace -) 100 mg PO BID [facility] Last Admin: 06/07/17 21:24 Dose: 100 mg Heparin Sodium (Porcine) (Heparin -) 5,000 unit SQ TID [facility] Last Admin: 06/08/17 06:33 Dose: 5,000 unit Hydralazine HCl (Apresoline -) 50 mg PO TID [facility] Last Admin: 06/08/17 06:33 Dose: 50 mg Vancomycin HCl 1,000 mg/ (Dextrose) 250 mls @ 200 mls/hr IVPB Q12H [facility] Last Admin: 06/08/17 02:58 Dose: Not Given Insulin Aspart (Novolog Vial Sliding Scale -) 1 vial SQ ACHS [facility] PRN Reason: Protocol Last Admin: 06/08/17 06:32 Dose: Not Given Insulin Detemir (Levemir Vial) 7 units SQ HS [facility] Last Admin: 06/07/17 21:24 Dose: 7 units Levothyroxine Sodium (Synthroid -) 100 mcg PO DAILY@0700 [facility] Last Admin: 06/08/17 06:33 Dose: 100 mcg Multivitamins/Minerals/Vitamin C (Tab-A-Vit -) 1 tab PO DAILY [facility] Last Admin: 06/07/17 09:31 Dose: 1 tab Nystatin (Nystatin Oral Suspension -) 500,000 units PO Q6HPO [facility] Last Admin: 06/08/17 06:33 Dose: 500,000 units Oxycodone HCl (Roxicodone -) 5 mg PO Q6H PRN PRN Reason: PAIN Pantoprazole Sodium (Protonix -) 40 mg PO DAILY [facility] Last Admin: 06/07/17 09:31 Dose: 40 mg Prednisone (Deltasone -) 60 mg PO DAILY [facility] Last Admin: 06/07/17 09:30 Dose: 60 mg Sodium Chloride ([place] Nasal [place] -) 2 spray NS BID PRN PRN Reason: NASAL CONGESTION Valacyclovir HCl (Valtrex -) 500 mg PO BID [facility] Last Admin: 06/07/17 21:24 Dose: 500 mg - Objective Vital Signs: Vital Signs Temperature 98.2 F 06/08/17 06:00 Pulse Rate 59 L 06/08/17 06:00 Respiratory Rate 20 06/08/17 06:00 Blood Pressure 147/68 06/08/17 06:00 O2 Sat by Pulse Oximetry (%) 96 06/07/17 21:00 Constitutional: Yes: Well Nourished, No Distress, Calm Eyes: Yes: Conjunctiva Clear, EOM Intact HENT: Yes: Atraumatic, Normocephalic Neck: Yes: Supple, Trachea Midline Cardiovascular: Yes: Regular Rate and Rhythm, S1, S2. No: Murmur Respiratory: Yes: Regular, CTA Bilaterally. No: Rales, Rhonchi Gastrointestinal: Yes: Normal Bowel Sounds, Soft Genitourinary: No: CVA Tenderness - Left, CVA Tenderness - Right Extremities: No: Cool, Cyanosis Wound/Incision: Yes: Clean/Dry, Dressing Dry and Intact (removed and replaced) Neurological: Yes: Alert, Oriented Psychiatric: Yes: Alert, Oriented Labs: CBC, BMP 06/07/17 06:30 06/07/17 06:30 Problem List - Problems (1) Paronychia of right middle finger Assessment/Plan: 77yo RHD with Right middle finger paronychial infection s/p debridement, culture returned MRSA continue IV antibiotics per ID dressing change daily elevation of the right hand above heart level PT/ OT for ROM exercise regimen oredered Code(s): L03.011 - CELLULITIS OF RIGHT FINGER (2) Microscopic polyangiitis Code(s): M31.7 - MICROSCOPIC POLYANGIITIS (3) Acute kidney injury Code(s): N17.9 - ACUTE KIDNEY FAILURE, UNSPECIFIED (4) Vasculitis Code(s): I77.6 - ARTERITIS, UNSPECIFIED (5) Hypertension Code(s): I10 - ESSENTIAL (PRIMARY) HYPERTENSION
[2017-06-08 08:12] LABS: MCH 32.3 pg (25.7-33.7); MCHC 34.1 g/dl (32.0-36.0); MEAN CELL VOLUME 94.6 fl (80-96); MEAN PLT VOLUME 8.7 fl (7.5-11.1); PLATELET COUNT 160 K/MM3 (134-434); RDW 24.3 % (11.6-15.6)
[2017-06-08 08:24] LABS: ALBUMIN 2.8 g/dl (3.4-5.0); ANION GAP 6 (8-16); CALCIUM 7.8 mg/dL (8.5-10.1); CO2 29 mmol/L (21-32); CREATININE 1.5 mg/dL (0.55-1.02); GLUCOSE,RANDOM 85 mg/dL (74-106); SGOT/AST 9 U/L (15-37); SGPT/ALT 17 U/L (12-78)
[2017-06-08 08:26] LABS: ALK PHOS 59 U/L (45-117); BILIRUBIN,TOTAL 0.4 mg/dL (0.2-1.0); TOT PROT 4.8 g/dl (6.4-8.2)
[2017-06-08] MEDS ORDERED: PT OWN MED DRAWER 7, Y5N ONE (08:26)
[2017-06-08] MEDS: ATOVAQUONE 750 MG/5 ML (UNIT-DOSE PACKAGING) PO SCH (08:40)
[2017-06-08] MEDS: MULTIVITAMINS (DAILY MVI) TABLET (FP) PO SCH (09:58)
[2017-06-08] MEDS: PANTOPRAZOLE 40 MG TABLET (FP) PO SCH (09:58)
[2017-06-08] MEDS: DOCUSATE SODIUM 100 MG CAPSULE (FP) PO SCH ×2 (09:59→21:28)
[2017-06-08] MEDS: ASCORBIC ACID 500 MG TABLET (FP) PO SCH ×2 (09:59→21:27)
[2017-06-08] MEDS: valACYclovir HCL 500 MG TABLET (FP) PO SCH ×2 (09:59→21:28)
[2017-06-08] MEDS: predniSONE 20 MG TABLET (UD) PO SCH (09:59)
[2017-06-08] MEDS: CALCIUM 500MG/VIT-D 200 UNITS COMBO TABLET (FP) PO SCH (09:59)
[2017-06-08 10:06] LABS: METAMYELOCYTE 1 % (0-2); MYELOCYTE 2 % (0-2); PLATELET ESTIMATE ADEQUATE; TOTAL CELLS COUNTED 100
--- NOTE | 2017-06-08 10:55 | PN ---
Progress Note (short form) - Note Progress Note: no complaints dressing intact on hand- surgeon is doing dressing changes Vital Signs Period Temp Pulse Resp BP Sys/Horn Pulse Ox Last 24 Hr 97.7 F-98.2 F 59-80 18-20 131-155/68-85 96 cor-rrr lungs clear abd soft,nt ext left medial thigh, right posterior thich with shallow ulcers minimal erythema foot is wrapped finger with dressing CBC, BMP 06/08/17 06:00 06/08/17 06:00 vancomycin trough 26 Microbiology 06/06/17 14:30 Finger - Right Middle Finger Gram Stain - Final 06/06/17 14:30 Finger - Right Middle Finger Wound Culture - Preliminary Mr S Aureus 06/05/17 20:34 Blood - Peripheral Venous Blood Culture - Preliminary NO GROWTH OBTAINED AFTER 48 HOURS, INCUBATION TO CONTINUE FOR 3 DAYS. 06/05/17 20:30 Blood - Peripheral Venous Blood Culture - Preliminary NO GROWTH OBTAINED AFTER 48 HOURS, INCUBATION TO CONTINUE FOR 3 DAYS. a/p s/p drainage of infected finger paronychia-MRSA- continue vancomycin based on levels check level in am thigh wounds probably MRSA as well derm evaluation- c/o itching on her back microscopoic polyangitis- s/p rituxin, remains on prednisone continue mepron and valtrex ckd
[2017-06-08] MEDS: BACITRACIN/POLYMYXIN B SULFATE 15 GM TUBE TP SCH (14:09)
--- NOTE | 2017-06-08 18:09 | PN ---
Progress Note (short form) - Note Progress Note: coverage for dr pizano chart reviewed and pt examined Problems 1. CKD 2. lower extremity ulcer 3. hypothyroid 4. HTN 5. polymyalgia 6. anemia 7. vasculitis microscopic polyangitis 8. paronychia/cellulitis if right middle finger Current Medications Acetaminophen (Tylenol -) 650 mg PO Q6H PRN PRN Reason: FEVER OR PAIN Ascorbic Acid (Vitamin C -) 500 mg PO BID [facility] Last Admin: 06/08/17 09:59 Dose: 500 mg Atovaquone (Mepron -) 1,500 mg PO DAILY@0800 [facility] Last Admin: 06/08/17 08:40 Dose: 1,500 mg Bacitracin/Polymyxin B Sulfate (Polysporin Ointment -) 1 applic TP DAILY [facility] Last Admin: 06/08/17 14:09 Dose: 1 applic Calcium Carbonate/Cholecalciferol (Os-Russ 500+D -) 2 tab PO DAILY [facility] Last Admin: 06/08/17 09:59 Dose: 2 tab Docusate Sodium (Colace -) 100 mg PO BID [facility] Last Admin: 06/08/17 09:59 Dose: 100 mg Heparin Sodium (Porcine) (Heparin -) 5,000 unit SQ TID [facility] Last Admin: 06/08/17 14:10 Dose: 5,000 unit Hydralazine HCl (Apresoline -) 50 mg PO TID [facility] Last Admin: 06/08/17 14:09 Dose: 50 mg Vancomycin HCl 1,000 mg/ (Dextrose) 250 mls @ 200 mls/hr IVPB Q12H [facility] Last Admin: 06/08/17 14:31 Dose: Not Given Insulin Aspart (Novolog Vial Sliding Scale -) 1 vial SQ ACHS [facility] PRN Reason: Protocol Last Admin: 06/08/17 17:14 Dose: 6 units Insulin Detemir (Levemir Vial) 7 units SQ HS [facility] Last Admin: 06/07/17 21:24 Dose: 7 units Levothyroxine Sodium (Synthroid -) 100 mcg PO DAILY@0700 [facility] Last Admin: 06/08/17 06:33 Dose: 100 mcg Multivitamins/Minerals/Vitamin C (Tab-A-Vit -) 1 tab PO DAILY [facility] Last Admin: 06/08/17 09:58 Dose: 1 tab Nystatin (Nystatin Oral Suspension -) 500,000 units PO Q6HPO [facility] Last Admin: 06/08/17 17:14 Dose: 500,000 units Oxycodone HCl (Roxicodone -) 5 mg PO Q6H PRN PRN Reason: PAIN Pantoprazole Sodium (Protonix -) 40 mg PO DAILY [facility] Last Admin: 06/08/17 09:58 Dose: 40 mg Prednisone (Deltasone -) 60 mg PO DAILY [facility] Last Admin: 06/08/17 09:59 Dose: 60 mg Sodium Chloride ([place] Nasal [place] -) 2 spray NS BID PRN PRN Reason: NASAL CONGESTION Valacyclovir HCl (Valtrex -) 500 mg PO BID [facility] Last Admin: 06/08/17 09:59 Dose: 500 mg Last Vital Signs Temp Pulse Resp BP Pulse Ox 98.3 F 66 18 153/77 96 06/08/17 17:27 06/08/17 17:27 06/08/17 17:27 06/08/17 17:27 06/08/17 09:00 CBC, BMP 06/08/17 06:00 06/08/17 06:00 vasculitis CKD Plan - cont abx - hydralazine dose increase - monitor bp - recommend an annabel to help for proteinuria, pt will think about. Will likely start it after she is done with abx - urine studies improved - follow blood cultures
--- NOTE | 2017-06-08 19:01 | PN ---
Physical Exam: SUBJECTIVE: Patient seen and examined. No acute complaints at this time OBJECTIVE: Vital Signs Period Temp Pulse Resp BP Sys/Horn Pulse Ox Last 24 Hr 97.7 F-98.3 F 59-82 18-20 131-155/68-82 96-96 PE Neuro: alert, awake, cn 2-12intact Pulm: CTAB CV: s1 s2 rrr no mrg Abd: s nt nd+ bs Ext: warm, no le edema Skin: R middle finger drg CDI left thigh dressing cdi, posterior R thigh healing ulcer, le wounds healing Laboratory Results - last 24 hr 06/07/17 06/08/17 06/08/17 21:05 02:00 06:00 WBC 7.0 RBC 2.52 L Hgb 8.1 L Hct 23.8 L MCV 94.6 MCH 32.3 MCHC 34.1 RDW 24.3 H Plt Count 160 MPV 8.7 Total Counted 100 Neutrophils % No Result Required. Neutrophils % (Manual) 75.0 Lymphocytes % No Result Required. Lymphocytes % (Manual) 17.0 D Monocytes % (Manual) 3 L Eosinophils % (Manual) 1.0 Basophils % (Manual) 1.0 Myelocytes % (Man) 2 D Metamyelocytes 1 D Platelet Estimate Adequate Sodium Potassium Chloride Carbon Dioxide Anion Gap BUN Creatinine Creat Clearance w eGFR POC Glucometer 251 Random Glucose Calcium Ferritin Total Bilirubin AST ALT Alkaline Phosphatase Total Protein Albumin Vancomycin Pre-Dose 26.802 H* 06/08/17 06/08/17 06/08/17 06:00 06:00 06:30 WBC RBC Hgb Hct MCV MCH MCHC RDW Plt Count MPV Total Counted Neutrophils % Neutrophils % (Manual) Lymphocytes % Lymphocytes % (Manual) Monocytes % (Manual) Eosinophils % (Manual) Basophils % (Manual) Myelocytes % (Man) Metamyelocytes Platelet Estimate Sodium 143 Potassium 3.6 Chloride 108 H Carbon Dioxide 29 Anion Gap 6 L BUN 26 H Creatinine 1.5 H Creat Clearance w eGFR 33.76 POC Glucometer 99 Random Glucose 85 D Calcium 7.8 L Ferritin 647.640 H Total Bilirubin 0.4 AST 9 L ALT 17 Alkaline Phosphatase 59 Total Protein 4.8 L Albumin 2.8 L Vancomycin Pre-Dose Active Medications Generic Name Dose Route Start Last Admin Trade Name Freq PRN Reason Stop Dose Admin Acetaminophen 650 mg 06/05/17 23:58 Tylenol - PO Q6H PRN FEVER OR PAIN Ascorbic Acid 500 mg 06/06/17 10:00 06/08/17 09:59 Vitamin C - PO 500 mg BID [facility] Administration Atovaquone 1,500 mg 06/06/17 08:00 06/08/17 08:40 Mepron - PO 1,500 mg DAILY@0800 [facility] Administration Bacitracin/Polymyxin B Sulfate 1 applic 06/07/17 14:45 06/08/17 14:09 Polysporin Ointment - TP 1 applic DAILY [facility] Administration Calcium Carbonate/Cholecalciferol 2 tab 06/06/17 10:00 06/08/17 09:59 Os-Russ 500+D - PO 2 tab DAILY [facility] Administration Docusate Sodium 100 mg 06/06/17 10:00 06/08/17 09:59 Colace - PO 100 mg BID [facility] Administration Heparin Sodium (Porcine) 5,000 unit 06/06/17 06:00 06/08/17 14:10 Heparin - SQ 5,000 unit TID [facility] Administration Hydralazine HCl 50 mg 06/06/17 14:47 06/08/17 14:09 Apresoline - PO 50 mg TID [facility] Administration Vancomycin HCl 1,000 mg/ 250 mls @ 200 mls/hr 06/06/17 15:00 06/08/17 14:31 Dextrose IVPB Not Given Q12H [facility] Insulin Aspart 1 vial 06/06/17 07:00 06/08/17 17:14 Novolog Vial Sliding Scale - SQ 6 units ACHS [facility] Administration Protocol Insulin Detemir 7 units 06/06/17 22:00 06/07/17 21:24 Levemir Vial SQ 7 units HS [facility] Administration Levothyroxine Sodium 100 mcg 06/06/17 07:00 06/08/17 06:33 Synthroid - PO 100 mcg DAILY@0700 [facility] Administration Multivitamins/Minerals/Vitamin C 1 tab 06/06/17 10:00 06/08/17 09:58 Tab-A-Vit - PO 1 tab DAILY [facility] Administration Nystatin 500,000 units 06/06/17 00:00 06/08/17 17:14 Nystatin Oral Suspension - PO 500,000 units Q6HPO [facility] Administration Oxycodone HCl 5 mg 06/07/17 13:52 Roxicodone - PO Q6H PRN PAIN Pantoprazole Sodium 40 mg 06/06/17 10:00 06/08/17 09:58 Protonix - PO 40 mg DAILY [facility] Administration Prednisone 60 mg 06/06/17 10:00 06/08/17 09:59 Deltasone - PO 60 mg DAILY [facility] Administration Sodium Chloride 2 spray 06/05/17 23:48 [place] Nasal [place] - NS BID PRN NASAL CONGESTION Valacyclovir HCl 500 mg 06/06/17 10:00 06/08/17 09:59 Valtrex - PO 500 mg BID [facility] Administration Assessment: 77 year old female with microscopic polyangitis, HTN, chronic venous stasis lower extremity ulcers, polymyaglia rheumatica, and hypothyroidism admitted with R middle finger infection. She presents to the hospital on 06/05/17 with cellulitis of her right hand middle finger. During previous two recent admission, patient was diagnosed with microscopic polyangitis. She is s/p 7 sessions of plasmapheresis and also received Rituxan infusion as an outpatient Plan: 1. Paronychia of right middle finger - s/p debridement 06/06 - Daily dressing change - Vanco dose per levels, hold dose until am vanco level 2. Microscopic polyangitis - s/p plasmapheresis x7 sessions and reiuax as outpt - Prednisone 60mg daily - Continue Valtrex, meprol ppx coverage 3. CKD - ROZINA initiation as oupt - Cr stable 4. Hypertension - Increased hydralazine 50mg TID 5. Hypothyroid - Synthroid 100mcg 6. DM II - Change Levemir 7units qhs - May need to change to am 7. Acute on chronic anemia - Trend hgb, as of now no over bleeding Visit type - Emergency Visit Emergency Visit: Yes ED Registration Date: 06/05/17 Care time: The patient presented to the Emergency Department on the above date and was hospitalized for further evaluation of their emergent condition. - New Patient This patient is new to me today: Yes Date on this admission: 06/08/17 - Critical Care Critical Care patient: No
[2017-06-08] MEDS: INSULIN DETEMIR 100 UNITS/ML MDV SQ SCH (21:28)
[2017-06-09] MEDS: NYSTATIN 500,000 UNITS/5 ML SUSPENSION PO SCH ×5 (00:39→23:30)
[2017-06-09] MEDS: hydrALAZINE HCL 25 MG TABLET (FP) PO SCH ×3 (06:34→21:03)
[2017-06-09] MEDS: HEPARIN NA (PORCINE) 5,000 UNITS/ML 1ML VIAL SQ SCH ×3 (06:34→21:02)
[2017-06-09] MEDS: LEVOTHYROXINE NA 100 MCG TABLET (FP) PO SCH (06:34)
[2017-06-09] MEDS: INSULIN SLIDING SCALE (NOVOLOG) 1 VIAL SQ SCH ×4 (06:35→21:02)
[2017-06-09 06:37] LABS: SERUM IRON 83 ug/dL (27-139); TOTAL IRON BINDING CAPACITY 188 ug/dL (250-450); UIBC 105 ug/dL (118-369)
[2017-06-09] MEDS ORDERED: PT OWN MED DRAWER 7, Y5N ONE ×2 (06:49→08:05)
[2017-06-09 08:23] LABS: MCH 31.9 pg (25.7-33.7); MCHC 34.1 g/dl (32.0-36.0); MEAN CELL VOLUME 93.6 fl (80-96); MEAN PLT VOLUME 8.5 fl (7.5-11.1); PLATELET COUNT 168 K/MM3 (134-434); RDW 24.6 % (11.6-15.6); WHITE BLOOD COUNT 6.5 K/mm3 (4.0-10.0)
[2017-06-09] MEDS: ATOVAQUONE 750 MG/5 ML (UNIT-DOSE PACKAGING) PO SCH (08:24)
[2017-06-09 08:35] LABS: ANION GAP 8 (8-16); CALCIUM 7.8 mg/dL (8.5-10.1); CO2 27 mmol/L (21-32); CREATININE 1.6 mg/dL (0.55-1.02); GLUCOSE,RANDOM 65 mg/dL (74-106)
[2017-06-09] MEDS: MULTIVITAMINS (DAILY MVI) TABLET (FP) PO SCH (09:33)
[2017-06-09] MEDS: CALCIUM 500MG/VIT-D 200 UNITS COMBO TABLET (FP) PO SCH (09:33)
[2017-06-09] MEDS: ASCORBIC ACID 500 MG TABLET (FP) PO SCH ×2 (09:34→21:03)
[2017-06-09] MEDS: PANTOPRAZOLE 40 MG TABLET (FP) PO SCH (09:34)
[2017-06-09] MEDS: DOCUSATE SODIUM 100 MG CAPSULE (FP) PO SCH ×2 (09:35→21:04)
[2017-06-09] MEDS: predniSONE 20 MG TABLET (UD) PO SCH (09:35)
[2017-06-09] MEDS: BACITRACIN/POLYMYXIN B SULFATE 15 GM TUBE TP SCH (09:35)
[2017-06-09] MEDS: valACYclovir HCL 500 MG TABLET (FP) PO SCH ×2 (09:35→21:03)
--- NOTE | 2017-06-09 09:37 | PN ---
Progress Note (short form) - Note Progress Note: no complaints dressing intact on hand- surgeon is doing dressing changes asking about her prednisone dosing Vital Signs Period Temp Pulse Resp BP Sys/Horn Pulse Ox Last 24 Hr 98 F-98.6 F 65-82 18-20 130-153/76-82 95 cor-rrr lungs clear abd soft,nt ext left medial thigh, right posterior thich with shallow ulcers minimal erythema foot is wrapped finger with dressing intact CBC, BMP 06/09/17 06:00 06/09/17 06:00 vanco trough 14.5 a/p s/p drainage of infected finger [id number] vancomycin thigh wounds probably MRSA as well derm evaluation- c/o itching on her back microscopoic polyangitis- s/p rituxin, remains on prednisone continue mepron and valtrex rheum f/u re prednisone dosing ckd-renal f/u ongoing
[2017-06-09] MEDS ORDERED: VANCOMYCIN 1 GRAM (PRE-DOCKED) 1,000 MG/250 ML BAG IVPB SCH (09:45)
[2017-06-09] MEDS: VANCOMYCIN 1,000 MG in DEXTROSE 5%-WATER - 250 ML IVPB SCH (10:00)
--- NOTE | 2017-06-09 10:51 | PN ---
Progress Note, Physician Chief Complaint: right middle finger abscess s/p I&D History of Present Illness: 77 yo female RHD s/p debridement of right middle finger. This morning pain is adequately controlled. 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 Now the cultures have confirmed MRSA. - Current Medication List Current Medications: Active Medications Acetaminophen (Tylenol -) 650 mg PO Q6H PRN PRN Reason: FEVER OR PAIN Ascorbic Acid (Vitamin C -) 500 mg PO BID [facility] Last Admin: 06/09/17 09:34 Dose: 500 mg Atovaquone (Mepron -) 1,500 mg PO DAILY@0800 [facility] Last Admin: 06/09/17 08:24 Dose: 1,500 mg Bacitracin/Polymyxin B Sulfate (Polysporin Ointment -) 1 applic TP DAILY [facility] Last Admin: 06/09/17 09:35 Dose: 1 applic Calcium Carbonate/Cholecalciferol (Os-Russ 500+D -) 2 tab PO DAILY [facility] Last Admin: 06/09/17 09:33 Dose: 2 tab Docusate Sodium (Colace -) 100 mg PO BID [facility] Last Admin: 06/09/17 09:35 Dose: 100 mg Heparin Sodium (Porcine) (Heparin -) 5,000 unit SQ TID [facility] Last Admin: 06/09/17 06:34 Dose: 5,000 unit Hydralazine HCl (Apresoline -) 50 mg PO TID [facility] Last Admin: 06/09/17 06:34 Dose: 50 mg Vancomycin HCl 1,000 mg/ (Dextrose) 250 mls @ 166.667 mls/hr IVPB DAILY [facility] Last Admin: 06/09/17 10:00 Dose: 166.667 mls/hr Insulin Aspart (Novolog Vial Sliding Scale -) 1 vial SQ ACHS [facility] PRN Reason: Protocol Last Admin: 06/09/17 06:35 Dose: Not Given Insulin Detemir (Levemir Vial) 7 units SQ HS [facility] Last Admin: 06/08/17 21:28 Dose: 7 units Levothyroxine Sodium (Synthroid -) 100 mcg PO DAILY@0700 [facility] Last Admin: 06/09/17 06:34 Dose: 100 mcg Multivitamins/Minerals/Vitamin C (Tab-A-Vit -) 1 tab PO DAILY [facility] Last Admin: 06/09/17 09:33 Dose: 1 tab Nystatin (Nystatin Oral Suspension -) 500,000 units PO Q6HPO [facility] Last Admin: 06/09/17 06:34 Dose: 500,000 units Oxycodone HCl (Roxicodone -) 5 mg PO Q6H PRN PRN Reason: PAIN Pantoprazole Sodium (Protonix -) 40 mg PO DAILY [facility] Last Admin: 06/09/17 09:34 Dose: 40 mg Prednisone (Deltasone -) 60 mg PO DAILY [facility] Last Admin: 06/09/17 09:35 Dose: 60 mg Sodium Chloride ([place] Nasal [place] -) 2 spray NS BID PRN PRN Reason: NASAL CONGESTION Valacyclovir HCl (Valtrex -) 500 mg PO BID [facility] Last Admin: 06/09/17 09:35 Dose: 500 mg - Objective Vital Signs: Vital Signs Temperature 97.9 F 06/09/17 10:00 Pulse Rate 83 06/09/17 10:00 Respiratory Rate 18 06/09/17 10:00 Blood Pressure 144/72 06/09/17 10:00 O2 Sat by Pulse Oximetry (%) 95 06/08/17 21:00 Vital Signs Period Temp Pulse Resp BP Sys/Horn Pulse Ox Last 24 Hr 97.9 F-98.6 F 65-83 18-20 130-153/72-82 95-96 Constitutional: Yes: Well Nourished, No Distress Eyes: Yes: Conjunctiva Clear, EOM Intact HENT: Yes: Atraumatic, Normocephalic Neck: Yes: Supple, Trachea Midline Cardiovascular: Yes: Regular Rate and Rhythm, S1, S2. No: Murmur Respiratory: Yes: Regular, CTA Bilaterally Gastrointestinal: Yes: Normal Bowel Sounds, Soft Genitourinary: No: CVA Tenderness - Left, CVA Tenderness - Right Musculoskeletal: No: Muscle Pain, Muscle Weakness Peripheral Pulses WNL: No Wound/Incision: Yes: Clean/Dry (dorsum of the right middle finger is clean an granulating), Dressing Removed Neurological: Yes: Alert, Oriented Psychiatric: Yes: Alert, Oriented Labs: CBC, BMP 06/09/17 06:00 06/09/17 06:00 Microbiology 06/05/17 20:34 Blood - Peripheral Venous Blood Culture - Preliminary NO GROWTH OBTAINED AFTER 72 HOURS, INCUBATION TO CONTINUE FOR 2 DAYS. 06/05/17 20:30 Blood - Peripheral Venous Blood Culture - Preliminary NO GROWTH OBTAINED AFTER 72 HOURS, INCUBATION TO CONTINUE FOR 2 DAYS. 06/06/17 14:30 Finger - Right Middle Finger Gram Stain - Final 06/06/17 14:30 Finger - Right Middle Finger Wound Culture - Final Mr Reese Aureus Problem List - Problems (1) Paronychia of right middle finger Assessment/Plan: 77yo RHD with Right middle finger paronychial infection s/p debridement, culture returned MRSA continue IV antibiotics per ID, needs a home regimen elevation of the right hand above heart level PT/ OT for ROM exercise regimen ordered, need a home regimen D/C home for daily dressing by VNS Wound Measurement : 4cm X 1.5cm partial thickness dermis Dressing : petroleum gauze or adaptic (cut to size of red exposed areas) 2X2" gauze sponge, 2"rolled gauze and tape Code(s): L03.011 - CELLULITIS OF RIGHT FINGER (2) Microscopic polyangiitis Code(s): M31.7 - MICROSCOPIC POLYANGIITIS (3) Acute kidney injury Code(s): N17.9 - ACUTE KIDNEY FAILURE, UNSPECIFIED (4) Vasculitis Code(s): I77.6 - ARTERITIS, UNSPECIFIED (5) Hypertension Code(s): I10 - ESSENTIAL (PRIMARY) HYPERTENSION
[2017-06-09] MEDS ORDERED: INSULIN (NOVOLOG) ASPART 100 UNITS/ML 10ML VIAL ONE (11:33)
[2017-06-09] MEDS: MINERAL OIL/PET HY-PHL TOPICAL OINTMENT 454 GM JAR TP SCH ×2 (15:07→21:03)
--- NOTE | 2017-06-09 15:15 | PN ---
Physical Exam: SUBJECTIVE: Patient seen and examined. Pt c/o itching to RU shoulder and peeling skin. OBJECTIVE: Vital Signs Period Temp Pulse Resp BP Sys/Horn Pulse Ox Last 24 Hr 97.9 F-98.6 F 65-83 18-18 130-153/72-82 95-96 PE Neuro: alert, awake, cn 2-12intact Pulm: CTAB CV: s1 s2 rrr no mrg Abd: s nt nd+ bs Ext: warm, no le edema Skin: R middle finger drsg CDI, R shoulder skin flaking, not open left thigh dressing cdi, posterior R thigh healing ulcer, le wounds healing Laboratory Results - last 24 hr 06/08/17 06/08/17 06/08/17 06:00 10:56 16:24 WBC RBC Hgb Hct MCV MCH MCHC RDW Plt Count MPV Sodium Potassium Chloride Carbon Dioxide Anion Gap BUN Creatinine POC Glucometer 159 319 Random Glucose Calcium Iron 83 TIBC 188 L Iron Saturation 44 Random Vancomycin 06/08/17 06/09/17 06/09/17 20:50 06:00 06:00 WBC 6.5 RBC 2.52 L Hgb 8.0 L Hct 23.6 L MCV 93.6 MCH 31.9 MCHC 34.1 RDW 24.6 H Plt Count 168 MPV 8.5 Sodium Potassium Chloride Carbon Dioxide Anion Gap BUN Creatinine POC Glucometer 269 Random Glucose Calcium Iron TIBC Iron Saturation Random Vancomycin 14.506 06/09/17 06/09/17 06/09/17 06:00 06:32 11:29 WBC RBC Hgb Hct MCV MCH MCHC RDW Plt Count MPV Sodium 144 Potassium 3.4 L Chloride 109 H Carbon Dioxide 27 Anion Gap 8 BUN 30 H Creatinine 1.6 H POC Glucometer 87 229 Random Glucose 65 L D Calcium 7.8 L Iron TIBC Iron Saturation Random Vancomycin Active Medications Generic Name Dose Route Start Last Admin Trade Name Freq PRN Reason Stop Dose Admin Acetaminophen 650 mg 06/05/17 23:58 Tylenol - PO Q6H PRN FEVER OR PAIN Ascorbic Acid 500 mg 06/06/17 10:00 06/09/17 09:34 Vitamin C - PO 500 mg BID MILES Administration Atovaquone 1,500 mg 06/06/17 08:00 06/09/17 08:24 Mepron - PO 1,500 mg DAILY@0800 MILES Administration Bacitracin/Polymyxin B Sulfate 1 applic 06/07/17 14:45 06/09/17 09:35 Polysporin Ointment - TP 1 applic DAILY MILES Administration Calcium Carbonate/Cholecalciferol 2 tab 06/06/17 10:00 06/09/17 09:33 Os-Russ 500+D - PO 2 tab DAILY MILES Administration Docusate Sodium 100 mg 06/06/17 10:00 06/09/17 09:35 Colace - PO 100 mg BID MILES Administration Emollient Ointment 1 applic 06/09/17 11:30 06/09/17 15:07 Aquaphor - TP 1 applic BID MILES Administration Heparin Sodium (Porcine) 5,000 unit 06/06/17 06:00 06/09/17 14:31 Heparin - SQ 5,000 unit TID MILES Administration Hydralazine HCl 50 mg 06/06/17 14:47 06/09/17 14:30 Apresoline - PO 50 mg TID MILES Administration Vancomycin HCl 1,000 mg/ 250 mls @ 166.667 mls/hr 06/09/17 10:00 06/09/17 10: 00 Dextrose IVPB 166.667 mls/hr DAILY MILES Administration Insulin Aspart 1 vial 06/06/17 07:00 06/09/17 11:35 Novolog Vial Sliding Scale - SQ 2 units ACHS MILES Administration Protocol Insulin Detemir 5 units 06/10/17 07:00 Levemir Vial SQ AM MILES Levothyroxine Sodium 100 mcg 06/06/17 07:00 06/09/17 06:34 Synthroid - PO 100 mcg DAILY@0700 MILES Administration Multivitamins/Minerals/Vitamin C 1 tab 06/06/17 10:00 06/09/17 09:33 Tab-A-Vit - PO 1 tab DAILY MILES Administration Nystatin 500,000 units 06/06/17 00:00 06/09/17 11:35 Nystatin Oral Suspension - PO 500,000 units Q6HPO MILES Administration Oxycodone HCl 5 mg 06/07/17 13:52 Roxicodone - PO Q6H PRN PAIN Pantoprazole Sodium 40 mg 06/06/17 10:00 06/09/17 09:34 Protonix - PO 40 mg DAILY MILES Administration Prednisone 60 mg 06/06/17 10:00 06/09/17 09:35 Deltasone - PO 60 mg DAILY MILES Administration Sodium Chloride 2 spray 06/05/17 23:48 [place] Nasal [place] - NS BID PRN NASAL CONGESTION Valacyclovir HCl 500 mg 06/06/17 10:00 06/09/17 09:35 Valtrex - PO 500 mg BID MILES Administration Assessment: 77 year old female with microscopic polyangitis, HTN, chronic venous stasis lower extremity ulcers, polymyaglia rheumatica, and hypothyroidism admitted with R middle finger infection. She presents to the hospital on 06/05/17 with cellulitis of her right hand middle finger. During previous two recent admission, patient was diagnosed with microscopic polyangitis. She is s/p 7 sessions of plasmapheresis and also received Rituxan infusion as an outpatient Plan: 1. Paronychia of right middle finger - s/p debridement 06/06 - Daily dressing changes by surgery, done today - Vanco today - Check levels, dose accordingly - Needs OT ROM exercises 2. Microscopic polyangitis - s/p plasmapheresis x7 sessions and rituxan as outpt - Prednisone 60mg daily - Continue Valtrex, meprol ppx coverage 3. CKD - ROZINA initiation as oupt - Cr stable 4. Hypertension - Controlled - Increased hydralazine 50mg TID 5. Hypothyroid - Synthroid 100mcg 6. DM II - Change Levemir 7units qam 7. Acute on chronic anemia - Trend hgb, as of now no over bleeding - Iron studies noted 8. ?dermatitis - Aquaphore orderd - Derm consult pending 9. Hypokalemia - Replete 40meq x1 Visit type - Emergency Visit Emergency Visit: Yes ED Registration Date: 06/05/17 Care time: The patient presented to the Emergency Department on the above date and was hospitalized for further evaluation of their emergent condition. - New Patient This patient is new to me today: No - Critical Care Critical Care patient: No
[2017-06-09] MEDS ORDERED: POTASSIUM CHLORIDE ORAL LIQUID 20 MEQ/15 ML PO ONE (15:19)
--- NOTE | 2017-06-09 19:19 | PN ---
Progress Note (short form) - Note Progress Note: coverage for dr pizano chart reviewed and pt examined Problems 1. CKD 2. lower extremity ulcer 3. hypothyroid 4. HTN 5. polymyalgia 6. anemia 7. vasculitis microscopic polyangitis 8. paronychia/cellulitis if right middle finger Current Medications Acetaminophen (Tylenol -) 650 mg PO Q6H PRN PRN Reason: FEVER OR PAIN Ascorbic Acid (Vitamin C -) 500 mg PO BID [facility] Last Admin: 06/09/17 09:34 Dose: 500 mg Atovaquone (Mepron -) 1,500 mg PO DAILY@0800 [facility] Last Admin: 06/09/17 08:24 Dose: 1,500 mg Bacitracin/Polymyxin B Sulfate (Polysporin Ointment -) 1 applic TP DAILY [facility] Last Admin: 06/09/17 09:35 Dose: 1 applic Calcium Carbonate/Cholecalciferol (Os-Russ 500+D -) 2 tab PO DAILY [facility] Last Admin: 06/09/17 09:33 Dose: 2 tab Docusate Sodium (Colace -) 100 mg PO BID [facility] Last Admin: 06/09/17 09:35 Dose: 100 mg Emollient Ointment (Aquaphor -) 1 applic TP BID [facility] Last Admin: 06/09/17 15:07 Dose: 1 applic Heparin Sodium (Porcine) (Heparin -) 5,000 unit SQ TID [facility] Last Admin: 06/09/17 14:31 Dose: 5,000 unit Hydralazine HCl (Apresoline -) 50 mg PO TID [facility] Last Admin: 06/09/17 14:30 Dose: 50 mg Vancomycin HCl 1,000 mg/ (Dextrose) 250 mls @ 166.667 mls/hr IVPB DAILY [facility] Last Admin: 06/09/17 10:00 Dose: 166.667 mls/hr Insulin Aspart (Novolog Vial Sliding Scale -) 1 vial SQ ACHS [facility] PRN Reason: Protocol Last Admin: 06/09/17 17:26 Dose: 4 units Insulin Detemir (Levemir Vial) 5 units SQ AM [facility] Levothyroxine Sodium (Synthroid -) 100 mcg PO DAILY@0700 [facility] Last Admin: 06/09/17 06:34 Dose: 100 mcg Multivitamins/Minerals/Vitamin C (Tab-A-Vit -) 1 tab PO DAILY [facility] Last Admin: 06/09/17 09:33 Dose: 1 tab Nystatin (Nystatin Oral Suspension -) 500,000 units PO Q6HPO [facility] Last Admin: 06/09/17 17:27 Dose: 500,000 units Oxycodone HCl (Roxicodone -) 5 mg PO Q6H PRN PRN Reason: PAIN Pantoprazole Sodium (Protonix -) 40 mg PO DAILY [facility] Last Admin: 06/09/17 09:34 Dose: 40 mg Prednisone (Deltasone -) 60 mg PO DAILY [facility] Last Admin: 06/09/17 09:35 Dose: 60 mg Sodium Chloride ([place] Nasal [place] -) 2 spray NS BID PRN PRN Reason: NASAL CONGESTION Valacyclovir HCl (Valtrex -) 500 mg PO BID [facility] Last Admin: 06/09/17 09:35 Dose: 500 mg Last Vital Signs Temp Pulse Resp BP Pulse Ox 97.4 F L 70 18 144/71 96 06/09/17 17:38 06/09/17 17:38 06/09/17 17:38 06/09/17 17:38 06/09/17 09:00 lungs clear heart reg abd soft nontender ext less lower ext edema right hand middle finger wrapped and bandaged CBC, BMP 06/09/17 06:00 06/09/17 06:00 mrsa abscess finger vasculitis CKD- stable Plan- continue to monitor renal function periodically
[2017-06-10] MEDS: hydrALAZINE HCL 25 MG TABLET (FP) PO SCH ×2 (06:12→14:18)
[2017-06-10] MEDS: INSULIN SLIDING SCALE (NOVOLOG) 1 VIAL SQ SCH ×3 (06:13→17:14)
[2017-06-10] MEDS: LEVOTHYROXINE NA 100 MCG TABLET (FP) PO SCH (06:13)
[2017-06-10] MEDS: HEPARIN NA (PORCINE) 5,000 UNITS/ML 1ML VIAL SQ SCH ×2 (06:14→14:18)
[2017-06-10] MEDS: NYSTATIN 500,000 UNITS/5 ML SUSPENSION PO SCH ×3 (06:14→17:14)
--- NOTE | 2017-06-10 06:57 | PN ---
Progress Note, Physician Chief Complaint: right middle finger abscess s/p I&D History of Present Illness: 77 yo female RHD s/p debridement of right middle finger. This morning pain is adequately controlled. 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 Now the cultures have confirmed MRSA. - Current Medication List Current Medications: Active Medications Acetaminophen (Tylenol -) 650 mg PO Q6H PRN PRN Reason: FEVER OR PAIN Ascorbic Acid (Vitamin C -) 500 mg PO BID [facility] Last Admin: 06/09/17 21:03 Dose: 500 mg Atovaquone (Mepron -) 1,500 mg PO DAILY@0800 [facility] Last Admin: 06/09/17 08:24 Dose: 1,500 mg Bacitracin/Polymyxin B Sulfate (Polysporin Ointment -) 1 applic TP DAILY [facility] Last Admin: 06/09/17 09:35 Dose: 1 applic Calcium Carbonate/Cholecalciferol (Os-Russ 500+D -) 2 tab PO DAILY [facility] Last Admin: 06/09/17 09:33 Dose: 2 tab Docusate Sodium (Colace -) 100 mg PO BID [facility] Last Admin: 06/09/17 21:04 Dose: 100 mg Emollient Ointment (Aquaphor -) 1 applic TP BID [facility] Last Admin: 06/09/17 21:03 Dose: 1 applic Heparin Sodium (Porcine) (Heparin -) 5,000 unit SQ TID [facility] Last Admin: 06/10/17 06:14 Dose: 5,000 unit Hydralazine HCl (Apresoline -) 50 mg PO TID [facility] Last Admin: 06/10/17 06:12 Dose: 50 mg Vancomycin HCl 1,000 mg/ (Dextrose) 250 mls @ 166.667 mls/hr IVPB DAILY [facility] Last Admin: 06/09/17 10:00 Dose: 166.667 mls/hr Insulin Aspart (Novolog Vial Sliding Scale -) 1 vial SQ ACHS [facility] PRN Reason: Protocol Last Admin: 06/10/17 06:13 Dose: Not Given Insulin Detemir (Levemir Vial) 5 units SQ AM [facility] Last Admin: 06/10/17 06:21 Dose: 5 units Levothyroxine Sodium (Synthroid -) 100 mcg PO DAILY@0700 [facility] Last Admin: 06/10/17 06:13 Dose: 100 mcg Multivitamins/Minerals/Vitamin C (Tab-A-Vit -) 1 tab PO DAILY [facility] Last Admin: 06/09/17 09:33 Dose: 1 tab Nystatin (Nystatin Oral Suspension -) 500,000 units PO Q6HPO [facility] Last Admin: 06/10/17 06:14 Dose: 500,000 units Oxycodone HCl (Roxicodone -) 5 mg PO Q6H PRN PRN Reason: PAIN Pantoprazole Sodium (Protonix -) 40 mg PO DAILY [facility] Last Admin: 06/09/17 09:34 Dose: 40 mg Prednisone (Deltasone -) 60 mg PO DAILY [facility] Last Admin: 06/09/17 09:35 Dose: 60 mg Sodium Chloride ([place] Nasal [place] -) 2 spray NS BID PRN PRN Reason: NASAL CONGESTION Valacyclovir HCl (Valtrex -) 500 mg PO BID [facility] Last Admin: 06/09/17 21:03 Dose: 500 mg - Objective Vital Signs: Vital Signs Temperature 97.8 F 06/10/17 06:00 Pulse Rate 82 06/10/17 06:00 Respiratory Rate 18 06/10/17 01:00 Blood Pressure 150/79 06/10/17 06:00 O2 Sat by Pulse Oximetry (%) 96 06/09/17 20:28 Vital Signs Period Temp Pulse Resp BP Sys/Horn Pulse Ox Last 24 Hr 97.4 F-97.9 F 70-83 18-20 143-152/71-79 96-96 Constitutional: Yes: Well Nourished, No Distress, Calm Eyes: Yes: Conjunctiva Clear, EOM Intact HENT: Yes: Atraumatic, Normocephalic Neck: Yes: Supple, Trachea Midline Cardiovascular: Yes: Regular Rate and Rhythm, S1, S2. No: Murmur Respiratory: Yes: Regular, CTA Bilaterally Gastrointestinal: Yes: Normal Bowel Sounds, Soft Musculoskeletal: Yes: Joint Stiffness (right middle finger DIP and PIP joints) Extremities: No: Cool, Cyanosis Peripheral Pulses WNL: Yes Peripheral Pulses: Left Radial: 2+, Right Radial: 2+ Wound/Incision: Yes: Clean/Dry, Dressing Dry and Intact (Wound Measurement : 4cm X 1.5cm X partial thickness dermis Dressing : CURAD oil emulsion non- adherent OR Adaptic OR petrolatum gauze (cut to size of red exposed areas) 2X2" gauze sponge, 2"rolled gauze and tape), Dressing Removed (Wound Measurement : 4cm X 1.5cm X partial thickness dermis) Neurological: Yes: Alert, Oriented Psychiatric: Yes: Alert, Oriented Labs: CBC, BMP 06/09/17 06:00 06/09/17 06:00 Microbiology 06/05/17 20:34 Blood - Peripheral Venous Blood Culture - Preliminary NO GROWTH OBTAINED AFTER 96 HOURS, INCUBATION TO CONTINUE FOR 1 DAYS. 06/05/17 20:30 Blood - Peripheral Venous Blood Culture - Preliminary NO GROWTH OBTAINED AFTER 96 HOURS, INCUBATION TO CONTINUE FOR 1 DAYS. 06/06/17 14:30 Finger - Right Middle Finger Gram Stain - Final 06/06/17 14:30 Finger - Right Middle Finger Wound Culture - Final Mr Reese Aureus Problem List - Problems (1) Paronychia of right middle finger Assessment/Plan: 77yo RHD with Right middle finger paronychial infection s/p debridement, culture returned MRSA, swelling is reduced and wound is improved continue IV antibiotics per ID, needs a home regimen elevation of the right hand above heart level PT/ OT for ROM exercise regimen ordered, needs a home regimen D/C home for daily dressing by VNS until followup in 2 weeks Wound Measurement : 4cm X 1.5cm X partial thickness dermis Dressing : CURAD oil emulsion non-adherent OR Adaptic OR petrolatum gauze (cut to size of red exposed areas) 2X2" gauze sponge, 2"rolled gauze and tape Code(s): L03.011 - CELLULITIS OF RIGHT FINGER (2) Microscopic polyangiitis Code(s): M31.7 - MICROSCOPIC POLYANGIITIS (3) Acute kidney injury Code(s): N17.9 - ACUTE KIDNEY FAILURE, UNSPECIFIED (4) Vasculitis Code(s): I77.6 - ARTERITIS, UNSPECIFIED (5) Hypertension Code(s): I10 - ESSENTIAL (PRIMARY) HYPERTENSION
[2017-06-10] MEDS ORDERED: INSULIN DETEMIR 100 UNITS/ML MDV SQ SCH (07:00)
[2017-06-10 07:36] LABS: MCH 32.3 pg (25.7-33.7); MEAN CELL VOLUME 94.9 fl (80-96); MEAN PLT VOLUME 8.7 fl (7.5-11.1); PLATELET COUNT 192 K/MM3 (134-434); WHITE BLOOD COUNT 8.4 K/mm3 (4.0-10.0)
[2017-06-10 07:48] LABS: ANION GAP 6 (8-16); CALCIUM 8.1 mg/dL (8.5-10.1); CO2 28 mmol/L (21-32); CREATININE 1.8 mg/dL (0.55-1.02); GLUCOSE,RANDOM 116 mg/dL (74-106); MAGNESIUM 1.7 mg/dL (1.8-2.4); PHOSPHOROUS 1.5 mg/dL (2.5-4.9); SGOT/AST 15 U/L (15-37); SGPT/ALT 21 U/L (12-78)
[2017-06-10 07:50] LABS: ALK PHOS 74 U/L (45-117); BILIRUBIN,TOTAL 0.4 mg/dL (0.2-1.0); TOT PROT 5.2 g/dl (6.4-8.2)
[2017-06-10] MEDS ORDERED: PT OWN MED DRAWER 7, Y5N ONE (08:03)
[2017-06-10] MEDS: ATOVAQUONE 750 MG/5 ML (UNIT-DOSE PACKAGING) PO SCH (08:09)
[2017-06-10 08:52] LABS: METAMYELOCYTE 3 % (0-2); MYELOCYTE 4 % (0-2)
[2017-06-10 08:53] LABS: PLATELET ESTIMATE ADEQUATE
[2017-06-10] MEDS: DOCUSATE SODIUM 100 MG CAPSULE (FP) PO SCH (09:51)
[2017-06-10] MEDS: PANTOPRAZOLE 40 MG TABLET (FP) PO SCH (09:51)
[2017-06-10] MEDS: MULTIVITAMINS (DAILY MVI) TABLET (FP) PO SCH (09:51)
[2017-06-10] MEDS: ASCORBIC ACID 500 MG TABLET (FP) PO SCH (09:51)
[2017-06-10] MEDS: CALCIUM 500MG/VIT-D 200 UNITS COMBO TABLET (FP) PO SCH (09:51)
[2017-06-10] MEDS: valACYclovir HCL 500 MG TABLET (FP) PO SCH (09:51)
[2017-06-10] MEDS: predniSONE 20 MG TABLET (UD) PO SCH (09:51)
[2017-06-10] MEDS: MINERAL OIL/PET HY-PHL TOPICAL OINTMENT 454 GM JAR TP SCH (09:52)
[2017-06-10] MEDS: BACITRACIN/POLYMYXIN B SULFATE 15 GM TUBE TP SCH (09:53)
[2017-06-10] MEDS: VANCOMYCIN 1,000 MG in DEXTROSE 5%-WATER - 250 ML IVPB SCH (09:54)
--- NOTE | 2017-06-10 12:04 | PN ---
Progress Note (short form) - Note Progress Note: ID Seen by surgery Currently on Vancomycin Selected Entries 06/10/17 10:00 Temperature 97.8 F Pulse Rate 76 Respiratory 18 Rate Blood Pressure 149/76 Right middle finger with dressing ( per surgery swelling less wound improving) Microbiology 06/06/17 14:30 Finger - Right Middle Finger Gram Stain - Final 06/06/17 14:30 Finger - Right Middle Finger Wound Culture - Final S Aureus 06/05/17 20:34 Blood - Peripheral Venous Blood Culture - Preliminary NO GROWTH OBTAINED AFTER 96 HOURS, INCUBATION TO CONTINUE FOR 1 DAYS. 06/05/17 20:30 Blood - Peripheral Venous Blood Culture - Preliminary NO GROWTH OBTAINED AFTER 96 HOURS, INCUBATION TO CONTINUE FOR 1 DAYS. Laboratory Tests 06/08/17 06/09/17 06/10/17 02:00 06:00 06:15 WBC 8.4 Hgb 8.8 L Hct 25.9 L Plt Count 192 BUN Creatinine Creat Clearance w eGFR Random Vancomycin 14.506 Vancomycin Pre-Dose 26.802 H* 06/10/17 06:15 WBC Hgb Hct Plt Count BUN 32 H Creatinine 1.8 H Creat Clearance w eGFR 27.36 Random Vancomycin Vancomycin Pre-Dose Advise Stop Vancomycin after today dose Doxycyline 100mg bid for 1 week Tahmina KUO
--- NOTE | 2017-06-10 12:52 | PN ---
Progress Note, Physician History of Present Illness: Pt seen and examined at bedside. She is awake and alert. She denies shortness of breath. - Current Medication List Current Medications: Active Medications Acetaminophen (Tylenol -) 650 mg PO Q6H PRN PRN Reason: FEVER OR PAIN Ascorbic Acid (Vitamin C -) 500 mg PO BID [facility] Last Admin: 06/10/17 09:51 Dose: 500 mg Atovaquone (Mepron -) 1,500 mg PO DAILY@0800 [facility] Last Admin: 06/10/17 08:09 Dose: 1,500 mg Bacitracin/Polymyxin B Sulfate (Polysporin Ointment -) 1 applic TP DAILY [facility] Last Admin: 06/10/17 09:53 Dose: 1 applic Calcium Carbonate/Cholecalciferol (Os-Russ 500+D -) 2 tab PO DAILY [facility] Last Admin: 06/10/17 09:51 Dose: 2 tab Docusate Sodium (Colace -) 100 mg PO BID [facility] Last Admin: 06/10/17 09:51 Dose: 100 mg Emollient Ointment (Aquaphor -) 1 applic TP BID [facility] Last Admin: 06/10/17 09:52 Dose: 1 applic Heparin Sodium (Porcine) (Heparin -) 5,000 unit SQ TID [facility] Last Admin: 06/10/17 06:14 Dose: 5,000 unit Hydralazine HCl (Apresoline -) 50 mg PO TID [facility] Last Admin: 06/10/17 06:12 Dose: 50 mg Vancomycin HCl 1,000 mg/ (Dextrose) 250 mls @ 166.667 mls/hr IVPB DAILY [facility] Last Admin: 06/10/17 09:54 Dose: 166.667 mls/hr Insulin Aspart (Novolog Vial Sliding Scale -) 1 vial SQ ACHS [facility] PRN Reason: Protocol Last Admin: 06/10/17 11:19 Dose: Not Given Insulin Detemir (Levemir Vial) 5 units SQ AM [facility] Last Admin: 06/10/17 06:21 Dose: 5 units Levothyroxine Sodium (Synthroid -) 100 mcg PO DAILY@0700 [facility] Last Admin: 06/10/17 06:13 Dose: 100 mcg Multivitamins/Minerals/Vitamin C (Tab-A-Vit -) 1 tab PO DAILY [facility] Last Admin: 06/10/17 09:51 Dose: 1 tab Nystatin (Nystatin Oral Suspension -) 500,000 units PO Q6HPO [facility] Last Admin: 06/10/17 11:22 Dose: 500,000 units Oxycodone HCl (Roxicodone -) 5 mg PO Q6H PRN PRN Reason: PAIN Pantoprazole Sodium (Protonix -) 40 mg PO DAILY [facility] Last Admin: 06/10/17 09:51 Dose: 40 mg Prednisone (Deltasone -) 60 mg PO DAILY [facility] Last Admin: 06/10/17 09:51 Dose: 60 mg Sodium Chloride ([place] Nasal [place] -) 2 spray NS BID PRN PRN Reason: NASAL CONGESTION Valacyclovir HCl (Valtrex -) 500 mg PO BID [facility] Last Admin: 06/10/17 09:51 Dose: 500 mg - Objective Vital Signs: Vital Signs Temperature 97.8 F 06/10/17 10:00 Pulse Rate 76 06/10/17 10:00 Respiratory Rate 18 06/10/17 10:00 Blood Pressure 149/76 06/10/17 10:00 O2 Sat by Pulse Oximetry (%) 96 06/10/17 09:00 Constitutional: Yes: Calm Eyes: Yes: Conjunctiva Clear HENT: Yes: Atraumatic Neck: Yes: Supple Cardiovascular: Yes: S1, S2 Respiratory: Yes: CTA Bilaterally Gastrointestinal: Yes: Normal Bowel Sounds, Soft Genitourinary: Yes: WNL Musculoskeletal: Yes: WNL Edema: LLE: Trace, RLE: Trace Neurological: Yes: Oriented Psychiatric: Yes: Oriented Labs: CBC, BMP 06/10/17 06:15 06/10/17 06:15 Problem List - Problems (1) Cellulitis Code(s): L03.90 - CELLULITIS, UNSPECIFIED (2) Paronychia of right middle finger Code(s): L03.011 - CELLULITIS OF RIGHT FINGER (3) Hypertension Code(s): I10 - ESSENTIAL (PRIMARY) HYPERTENSION (4) Hypothyroid Code(s): E03.9 - HYPOTHYROIDISM, UNSPECIFIED Assessment/Plan Current Medications Generic Name Dose Route Start Last Admin Trade Name Freq PRN Reason Stop Dose Admin Acetaminophen 650 mg 06/05/17 23:58 Tylenol - PO Q6H PRN FEVER OR PAIN Ascorbic Acid 500 mg 06/06/17 10:00 06/10/17 09:51 Vitamin C - PO 500 mg BID [facility] Administration Atovaquone 1,500 mg 06/06/17 08:00 06/10/17 08:09 Mepron - PO 1,500 mg DAILY@0800 [facility] Administration Bacitracin/Polymyxin B Sulfate 1 applic 06/07/17 14:45 06/10/17 09:53 Polysporin Ointment - TP 1 applic DAILY [facility] Administration Calcium Carbonate/Cholecalciferol 2 tab 06/06/17 10:00 06/10/17 09:51 Os-Russ 500+D - PO 2 tab DAILY [facility] Administration Docusate Sodium 100 mg 06/06/17 10:00 06/10/17 09:51 Colace - PO 100 mg BID [facility] Administration Emollient Ointment 1 applic 06/09/17 11:30 06/10/17 09:52 Aquaphor - TP 1 applic BID [facility] Administration Heparin Sodium (Porcine) 5,000 unit 06/06/17 06:00 06/10/17 06:14 Heparin - SQ 5,000 unit TID [facility] Administration Hydralazine HCl 50 mg 06/06/17 14:47 06/10/17 06:12 Apresoline - PO 50 mg TID [facility] Administration Vancomycin HCl 1,000 mg/ 250 mls @ 166.667 mls/hr 06/09/17 10:00 06/10/17 09: 54 Dextrose IVPB 166.667 mls/hr DAILY [facility] Administration Insulin Aspart 1 vial 06/06/17 07:00 06/10/17 11:19 Novolog Vial Sliding Scale - SQ Not Given [facility] Protocol Insulin Detemir 5 units 06/10/17 07:00 06/10/17 06:21 Levemir Vial SQ 5 units AM [facility] Administration Levothyroxine Sodium 100 mcg 06/06/17 07:00 06/10/17 06:13 Synthroid - PO 100 mcg DAILY@0700 [facility] Administration Multivitamins/Minerals/Vitamin C 1 tab 06/06/17 10:00 06/10/17 09:51 Tab-A-Vit - PO 1 tab DAILY [facility] Administration Nystatin 500,000 units 06/06/17 00:00 06/10/17 11:22 Nystatin Oral Suspension - PO 500,000 units Q6HPO [facility] Administration Oxycodone HCl 5 mg 06/07/17 13:52 Roxicodone - PO Q6H PRN PAIN Pantoprazole Sodium 40 mg 06/06/17 10:00 06/10/17 09:51 Protonix - PO 40 mg DAILY [facility] Administration Prednisone 60 mg 06/06/17 10:00 06/10/17 09:51 Deltasone - PO 60 mg DAILY [facility] Administration Sodium Chloride 2 spray 06/05/17 23:48 [place] Nasal [place] - NS BID PRN NASAL CONGESTION Valacyclovir HCl 500 mg 06/06/17 10:00 06/10/17 09:51 Valtrex - PO 500 mg BID [facility] Administration Impression 1. CKD 2. lower extremity ulcer 3. hypothyroid 4. HTN 5. polymyalgia 6. anemia 7. vasculitis microscopic polyangitis 8. paronychia/cellulitis if right middle finger Plan - abx per ID, input appreciated - discussed with catrachito, will change prednisone to 40 mg - repeat labs in am - last day of vanc today - will follow in office Dr Hamilton
[2017-06-10] MEDS ORDERED: predniSONE 20 MG TABLET (UD) PO SCH (12:53)
[2017-06-10] MEDS ORDERED: MAGNESIUM OXIDE 400 MG TABLET (FP) PO ONE (14:26)
[2017-06-10] MEDS ORDERED: NAPH,MB-DB/K PH,MBDB POWDER PACKET PO ONE (14:27)
--- NOTE | 2017-06-10 14:39 | DS ---
Physical Exam: SUBJECTIVE: Patient seen and examined. She feels well, explained changes to her medications and plans for followup . OBJECTIVE: Vital Signs Period Temp Pulse Resp BP Sys/Horn Pulse Ox Last 24 Hr 97.4 F-97.9 F 70-82 18-20 143-152/71-79 96-96 PE Neuro: alert, awake, cn 2-12intact Pulm: CTAB CV: s1 s2 rrr no mrg Abd: s nt nd+ bs Ext: warm, no le edema Skin: R middle finger drsg CDI, R shoulder skin flaking, not open left thigh dressing cdi, posterior R thigh healing ulcer, le wounds healing Laboratory Results - last 24 hr 06/10/17 06/10/17 06/10/17 06:15 06:15 11:13 WBC 8.4 RBC 2.73 L Hgb 8.8 L Hct 25.9 L MCV 94.9 MCH 32.3 MCHC 34.0 RDW 24.0 H Plt Count 192 MPV 8.7 Neutrophils % No Result Required. Neutrophils % (Manual) 64.0 Band Neutrophils % 4.0 Lymphocytes % No Result Required. Lymphocytes % (Manual) 20.0 Monocytes % (Manual) 3 L Eosinophils % (Manual) 2.0 D Basophils % (Manual) 0.0 Myelocytes % (Man) 4 H D Metamyelocytes 3 H D Platelet Estimate Adequate Basophilic Stippling Occasional Sodium 144 Potassium 3.8 Chloride 110 H Carbon Dioxide 28 Anion Gap 6 L BUN 32 H Creatinine 1.8 H Creat Clearance w eGFR 27.36 POC Glucometer 149 Random Glucose 116 H D Calcium 8.1 L Phosphorus 1.5 L D Magnesium 1.7 L Total Bilirubin 0.4 AST 15 D ALT 21 D Alkaline Phosphatase 74 D Total Protein 5.2 L Albumin 3.0 L HOSPITAL COURSE: Date of Admission:06/05/17 Date of Discharge: 06/10/17 Minutes to complete discharge: 37 Discharge Summary Reason For Visit: CELLULITIS Current Active Problems Cellulitis (Acute) Paronychia of right middle finger (Acute) Hospital Course: Initial Hospital Course: 77F w/ hx of microscopic polyangiitis (dx on 05/10), HTN, chronic venous stasis LE ulcers, polymyalgia rheumatica, hypothyroidism, and IDDM who presents with a right 3rd digit dorsal bullae and left mid-thigh ulcer. Lesions began 3 to 4 days ago. They were mildly painful, but she only presented when she went to her cpc coder, Dr. Hamilton, for f/u after her last hospital discharge, and he recommended go to the ED. Pt states that she thinks that her finger bullae was possibly caused by her BGM fingersticks. Recently diagnosed with microscopic polyangiitis on her last hospital admission from 05/12- 05/30. She was started on valacylovir, prednisone, and atovaquone, s/ p plasmapharesis and retux. Subsequent Hospital Course/Progress Note/DC summary: Assessment: 77 year old female with microscopic polyangitis, HTN, chronic venous stasis lower extremity ulcers, polymyaglia rheumatica, and hypothyroidism admitted with R middle finger infection. She presents to the hospital on 06/05/17 with cellulitis of her right hand middle finger. During previous two recent admission, patient was diagnosed with microscopic polyangitis. She is s/p 7 sessions of plasmapheresis and also received Rituxan infusion as an outpatient Plan: 1. Paronychia of right middle finger - s/p debridement 06/06 - Daily dressing instructions enclosed below - s/p IV Vanco - Home with doxy 100mg BID x7days - VNS for OT 2. Microscopic polyangitis - s/p plasmapheresis x7 sessions and rituxan as outpt - Decrease Prednisone 40mg daily - Continue Valtrex, meprol ppx coverage 3. CKD - ROZINA initiation as oupt - Cr stable 4. Hypertension - Controlled - Increased hydralazine 50mg TID 5. Hypothyroid - Synthroid 100mcg 6. DM II - Resume levemir 7. Acute on chronic anemia - Trend hgb, as of now no over bleeding - Iron studies noted 8. ?dermatitis - Aquaphore orderd - Derm consult pending 9. Hypokalemia - Resolved 10. Hypomagnesemia - Replete mg 800mg x1 11. Hypophosphatemia - kphos x2 packets now 12. Teinea Versicolor - Nixoral shampoo, follow up in 2 weeks, referral enclosed Dispo: - Home with VNS with above meds, plan and follow up - PT aware and agrees to above plan Condition: Stable - Instructions Diet, Activity, Other Instructions: Please return to the ED for any new, persistent, or worsening symptoms. Follow up with Dr. Hamilton and Dr. Webb in 1 week Take new dose of prednisone 40mg daily Take new dose of blood pressure medication hydralazine 50mg TID Follow up with Dr. Genoveva Alvarez for skin evaluation in 2 weeks Wound Care below: Postoperative instructions: You had a debridement of right middle finger paronychial infection on by Dr. Gonzalo Kirk of [facility]. Wound Care: Wound Measurement : 4cm X 1.5cm X partial thickness dermis Daily Dressing : CURAD oil emulsion non-adherent OR Adaptic OR petrolatum gauze (cut to size of red exposed areas) 2X2" gauze sponge, 2"rolled gauze and tape Activity: Resume your usual activities gradually, do home exercise regiment to improve the condition of your hand and limit joint stiffness. Pain: For pain, you may use and alternate Tylenol (acetaminophen) and/or ibuprofen every 6 hours each as needed;Take medications as prescribed or indicated on the labeling. Follow-up: Call Dr. Kirk' office at [phone] to make your postop appointment (Saturday 1-2 weeks after surgery as advised). Clinic is held in the [facility] on the first floor of [facility]. Call the office if you have: * increasing pain not responsive to pain medication * fever of 101F or higher * unusual or increasing bleeding or drainage from wounds * increasing redness or swelling at wound sites Referrals: Genoveva Alvarez MD [Staff Physician] - 2 Weeks Kole Concepcion MD [Staff Physician] - 1 Week Jennifer Hamilton MD [Staff Physician] - 1 Week Disposition: HOME - Home Medications Comprehensive Discharge Medication List: Ambulatory Orders Levothyroxine [Synthroid -] 100 mcg PO DAILY 03/23/14 Alcohol Antiseptic Pads [Caretouch Alcohol Prep Pad] 1 each TP ACHS #1 box 04/29 Lancets/Blood Glucose Strips [Fora [id number] Strp-Lnct] 1 each MC ACHS #1 box 04/29/17 Miscellaneous Medical Supply [Glucometer Device] 1 each SQ ASDIR #1 kit Miscellaneous Medical Supply [Glucometer Test Strips #100] 1 each SQ ASDIR #1 box 04/29/17 [place], Safety [Easy Touch Fliplock Needle] 1 each ACHS #1 box 04/29/17 Valacyclovir HCl [Valtrex -] 500 mg PO BID #60 tablet 04/29/17 Ascorbic Acid [Vitamin C -] 500 mg PO BID #60 tablet 05/30/17 Atovaquone [Mepron Oral Solution -] 1,500 mg PO DAILY@0800 #300 ml 05/30/17 Calcium 500Mg/Vit-D 200 Units [Os-Russ 500+D -] 2 tab PO DAILY tab 05/30/17 Collagenase Clostridium Hist. [Santyl -] 1 applic TP DAILY #1 tube 05/30/17 Docusate Sodium [Colace -] 100 mg PO BID #60 capsule 05/30/17 Insulin (Levemir) [Levemir Vial] 7 units SQ HS #1 ml 05/30/17 Insulin Sliding Scale [Novolog Vial Sliding Scale -] 1 vial SQ ACHS #1 vial 04/07 Multivitamins [Multivit ([facility] Formulary)] 1 tab PO DAILY #30 tab 05/30/17 Nystatin Oral Suspension - [Nystatin Oral Susp 619587 Units/5 ML -] 500,000 units PO Q6HPO #30 cup 05/30/17 Pantoprazole Sodium [Protonix -] 40 mg PO DAILY #30 tablet.ec 05/30/17 Sodium Chloride Nasal Rippey [[place] Rippey Nasal Rippey -] 2 spray NS BID PRN spray 05/30/17 Lancets [Accu-Chek Safe-T-Pro Plus] 1 box ACHS 1 Days #1 box 06/07/17 Doxycycline Hyclate [Vibramycin -] 100 mg PO BID #14 cap 06/10/17 Hydralazine HCl [Apresoline -] 50 mg PO TID #90 tablet 06/10/17 Prednisone [Deltasone -] 40 mg PO DAILY #60 tablet 06/10/17 This patient is new to me today: No Emergency Visit: Yes ED Registration Date: 06/05/17 Care time: The patient presented to the Emergency Department on the above date and was hospitalized for further evaluation of their emergent condition. Critical Care patient: No - Discharge Referral Referred to [facility] No
--- NOTE | 2017-06-10 17:33 | CONSULT ---
Consult - text type - Consultation Consultation Note: Dermatology 77 yr old woman with a history of vasculitis. Called to see patient for dry patches on back. admitted for cellulitis on rt middle finger positive for MRSA S/p rx . patient recieved RX (debridement and antibiotic)patient now discharged with follow up with hand surgeon. On exam she has hypopigmented scaly macules over back and shoulders with slight pruritis. DX Tinea Versicolor Discussed rx with patient . She will wash back with Head and shoulders or nizoral shampoo Apply moisturizer after and follow up in office in 2 weeks.
[2017-06-10] MEDS ORDERED: FLU VACCINE QUAD 60 MCG/0.5 ML (MDV 17-18) IM ONE (18:06)
[2017-06-10 19:21] VITALS: BP 142/83; PULSE 94; TEMP 98.4
== END 2017-06-10 19:23 | disposition home or self-care (01) | DRG 603 ==
LOC: JER 16:47 → JERBED 22:31 → J7W 06-06 02:29
PROVIDERS: ADMIT Internal Medicine; ATTEND Nurse Practitioner Acute Care
PROC: 0X9J0ZX Drainage of Right Hand, Open Approach, Diagnostic (ICD-10-PCS; principal; 2017-06-06)
PROC: 0HDFXZZ Extraction of Right Hand Skin, External Approach (ICD-10-PCS; 2017-06-06)
DX: L03.011 Cellulitis of right finger (principal); M31.7 Microscopic polyangiitis; L03.116 Cellulitis of left lower limb; L97.818 Non-pressure chronic ulcer of other part of right lower leg with other specified severity; L97.828 Non-pressure chronic ulcer of other part of left lower leg with other specified severity; N17.9 Acute kidney failure, unspecified; E11.622 Type 2 diabetes mellitus with other skin ulcer; E03.9 Hypothyroidism, unspecified; R00.0 Tachycardia, unspecified; D63.8 Anemia in other chronic diseases classified elsewhere; E11.65 Type 2 diabetes mellitus with hyperglycemia; I16.0 Hypertensive urgency; I12.9 Hypertensive chronic kidney disease with stage 1 through stage 4 chronic kidney disease, or unspecified chronic kidney disease; N18.9 Chronic kidney disease, unspecified; M35.3 Polymyalgia rheumatica; F41.8 Other specified anxiety disorders; D69.6 Thrombocytopenia, unspecified; I77.6 Arteritis, unspecified; B95.62 Methicillin resistant Staphylococcus aureus infection as the cause of diseases classified elsewhere; E87.6 Hypokalemia; B35.8 Other dermatophytoses; I83.019 Varicose veins of right lower extremity with ulcer of unspecified site; Z79.4 Long term (current) use of insulin; Z87.891 Personal history of nicotine dependence
CPT/HCPCS: 36415; 73140-TC-RT; 73218-TC-RT; 80048; 80053; 81003; 81015; 82607; 82728; 82746; 83540; 83550; 83735; 84100; 85025; 85027; 87040; 87070; 87186; 87205; 90688; 97116-GP; 97161-GP; 99283-25; G0008; G0480; J1644

== ENCOUNTER 2018-06-05 08:24 | Day surgery (SDC) | payer OTHER, BC ==
[~2018-06-05 08:24] MED LIST: ACETAMINOPHEN 500 MG TABLET (FP) PO ONE; RITUXIMAB 1,000 MG in SODIUM CHLORIDE 400 ML IVPB ONE; diphenhydrAMINE HCL 25 MG CAPSULE (FP) PO ONE; methylPREDNISolone NA SUCC 125 MG/2 ML VIAL IVPB ONE
[2018-06-05] MEDS ORDERED: diphenhydrAMINE HCL 25 MG CAPSULE (FP) PO ONE (09:15)
[2018-06-05] MEDS ORDERED: ACETAMINOPHEN 500 MG TABLET (FP) PO ONE (09:15)
[2018-06-05] MEDS ORDERED: methylPREDNISolone NA SUCC 125 MG/2 ML VIAL IVPB ONE (09:15)
[2018-06-05] MEDS ORDERED: RITUXIMAB 1,000 MG in SODIUM CHLORIDE 400 ML IVPB ONE (09:45)
[2018-06-05 15:42] VITALS: BP 138/64; PULSE 61; TEMP 98.1
== END 2018-06-05 15:48 | disposition home or self-care (01) ==
LOC: JCHEMO 08:24 → J7W 08:24 → JCHEMO 15:48
PROVIDERS: ATTEND Internal Medicine Rheumatology
DX: M31.7 Microscopic polyangiitis (principal)
CPT/HCPCS: 96361; 96367; 96375; 96413; 96415; J9310

== ENCOUNTER 2019-09-24 08:24 | Day surgery (SDC) | payer OTHER, BC ==
[2019-09-24] MEDS ORDERED: SODIUM CHLORIDE 1,000 ML IV SCH (09:15)
[2019-09-24] MEDS ORDERED: ACETAMINOPHEN 500 MG TABLET (FP) PO ONE (10:00)
[2019-09-24] MEDS ORDERED: methylPREDNISolone NA SUCC 125 MG/2 ML VIAL IVPUSH ONE (10:00)
[2019-09-24] MEDS ORDERED: diphenhydrAMINE HCL 25 MG CAPSULE (FP) PO ONE (10:00)
[2019-09-24] MEDS ORDERED: RITUXIMAB IVPB ONE (10:30)
[2019-09-24] MEDS ORDERED: WATER IVPB ONE (10:30)
[2019-09-24] MEDS ORDERED: DEXTROSE 5% IVPB ONE (10:30)
[2019-09-24 16:15] VITALS: TEMP 97.8
[2019-09-24 16:16] VITALS: BP 123/68; PULSE 61
== END 2019-09-24 14:35 | disposition home or self-care (01) ==
LOC: JCHEMO 08:24 → J7W 08:25 → JCHEMO 14:35
PROVIDERS: ATTEND Internal Medicine Rheumatology
PROC: 3E03305 Introduction of Other Antineoplastic into Peripheral Vein, Percutaneous Approach (ICD-10-PCS; principal; 2019-09-24)
PROC: 3E033GC Introduction of Other Therapeutic Substance into Peripheral Vein, Percutaneous Approach (ICD-10-PCS; 2019-09-24)
PROC: 3E0337Z Introduction of Electrolytic and Water Balance Substance into Peripheral Vein, Percutaneous Approach (ICD-10-PCS; 2019-09-24)
DX: Z51.11 Encounter for antineoplastic chemotherapy (principal); M31.7 Microscopic polyangiitis
CPT/HCPCS: 96361; 96367; 96413; 96415; J7030; J9312

== ENCOUNTER 2020-11-18 08:49 | Day surgery (SDC) | payer OTHER, BC ==
[2020-11-18] MEDS ORDERED: ACETAMINOPHEN 500 MG TABLET (FP) PO ONE (09:30)
[2020-11-18] MEDS ORDERED: diphenhydrAMINE HCL 25 MG CAPSULE (FP) PO ONE (09:30)
[2020-11-18] MEDS ORDERED: methylPREDNISolone NA SUCC 125 MG/2 ML VIAL IVPB ONE (09:30)
[2020-11-18] MEDS ORDERED: RITUXIMAB-ABBS 1,000 MG in DEXTROSE 5%-WATER - 400 ML IVPB ONE (10:00)
[2020-11-18 16:02] VITALS: TEMP 98.2
[2020-11-18 16:14] VITALS: BP 166/84; PULSE 84
== END 2020-11-18 14:35 | disposition home or self-care (01) ==
LOC: JCHEMO 08:49
PROVIDERS: ATTEND Internal Medicine Rheumatology
DX: M31.7 Microscopic polyangiitis (principal)
CPT/HCPCS: 96375; 96413; 96415; Q5115

== ENCOUNTER 2021-07-11 09:29 | Day surgery (SDC) | payer OTHER, BC ==
[~2021-07-11 09:29] MED LIST changes: +DEXTROSE 5% IVPB ONE; -RITUXIMAB 1,000 MG in SODIUM CHLORIDE 400 ML IVPB ONE; +RITUXIMAB PVVR IVPB ONE; +WATER IVPB ONE; -methylPREDNISolone NA SUCC 125 MG/2 ML VIAL IVPB ONE; +methylPREDNISolone NA SUCC 125 MG/2 ML VIAL IVPUSH ONE
[2021-07-11] MEDS ORDERED: ACETAMINOPHEN 500 MG TABLET (FP) PO ONE (10:00)
[2021-07-11] MEDS ORDERED: methylPREDNISolone NA SUCC 125 MG/2 ML VIAL IVPUSH ONE (10:00)
[2021-07-11] MEDS ORDERED: diphenhydrAMINE HCL 25 MG CAPSULE (FP) PO ONE (10:00)
[2021-07-11] MEDS ORDERED: RITUXIMAB-ABBS 1,000 MG in DEXTROSE 5%-WATER - 400 ML IVPB ONE (10:30)
[2021-07-11 11:04] LABS: EOS % 7.3 % (0-4.5); HEMATOCRIT 35.1 % (32.4-45.2); LYMPH % 24.5 % (8-40); MCH 30.8 pg (25.7-33.7); MCHC 34.3 g/dl (32.0-36.0); MEAN CELL VOLUME 89.8 fl (80-96); MEAN PLT VOLUME 8.6 fl (7.5-11.1); MONO % 8.6 % (3.8-10.2); NEUT % 58.6 % (42.8-82.8); PLATELET COUNT 286 10^3/uL (134-434); RBC 3.91 M/mm3 (3.60-5.2); RDW 13.9 % (11.6-15.6)
[2021-07-11 11:08] LABS: ALBUMIN 3.8 g/dl (3.4-5.0); BLOOD UREA NITROGEN 24.8 mg/dL (7-18)
[2021-07-11 11:11] LABS: CREATININE 1.2 mg/dL (0.55-1.3)
[2021-07-11 11:12] LABS: BILIRUBIN,TOTAL 0.3 mg/dL (0.2-1); TOT PROT 6.9 g/dl (6.4-8.2)
[2021-07-11 17:30] VITALS: BP 149/69; PULSE 60; TEMP 98
== END 2021-07-11 17:30 | disposition home or self-care (01) ==
LOC: JCHEMO 09:29 → J7W 09:31 → JCHEMO 17:30
PROVIDERS: ATTEND Internal Medicine Rheumatology
DX: M31.7 Microscopic polyangiitis (principal)
CPT/HCPCS: 36415; 80053; 85025; 96367; 96413; 96415; Q5115

== ENCOUNTER 2022-10-11 12:41 | Day surgery (SDC) | payer OTHER, BC ==
[2022-10-11] MEDS ORDERED: CLINDAMYCIN HCL 150 MG CAPSULE (FP) PO ONE (14:23)
[2022-10-11] MEDS ORDERED: CLINDAMYCIN HCL 150 MG CAPSULE (FP) ONE (15:04)
[2022-10-11] MEDS ORDERED: PROPOFOL 20 ML ONE (18:08)
[2022-10-11] MEDS ORDERED: traMADol HCL 50 MG TABLET PO PRN (18:13)
[2022-10-11 18:16] LABS: BASO % 0.8 % (0-2.0); EOS % 6.3 % (0-4.5); HEMATOCRIT 36.1 % (32.4-45.2); HEMOGLOBIN 12.1 GM/dL (10.7-15.3); LYMPH % 22.9 % (8-40); MCH 29.9 pg (25.7-33.7); MCHC 33.5 g/dl (32.0-36.0); MEAN CELL VOLUME 89.5 fl (80-96); MEAN PLT VOLUME 9.1 fl (7.5-11.1); MONO % 6.6 % (3.8-10.2); NEUT % 63.4 % (42.8-82.8); PLATELET COUNT 247 10^3/uL (134-434); RBC 4.04 M/mm3 (3.60-5.2); RDW 14.1 % (11.6-15.6); WHITE BLOOD COUNT 8.1 K/mm3 (4.0-10.0)
[2022-10-11 18:27] LABS: INR 1.19 (0.83-1.09); PROTHROMBIN TIME (PATIENT) 13.8 SEC (9.7-13.0)
[2022-10-11 18:30] LABS: ACTIVATED PTT 34.4 SECONDS (25.2-36.5)
[2022-10-11 18:33] LABS: ALBUMIN 3.9 g/dl (3.4-5.0); BLOOD UREA NITROGEN 18.8 mg/dL (7-18); MAGNESIUM 2.1 mg/dL (1.8-2.4)
[2022-10-11 18:36] LABS: CREATININE 1.1 mg/dL (0.55-1.3)
[2022-10-11 18:37] LABS: BILIRUBIN,TOTAL 0.4 mg/dL (0.2-1); TOT PROT 7.1 g/dl (6.4-8.2)
[2022-10-11] MEDS ORDERED: BUPIVACAINE HCL/PF 0.5% (5MG/ML) 10 ML VIAL IJ ONE ×3 (18:41)
[2022-10-11] MEDS ORDERED: ONDANSETRON 4 MG/2 ML VIAL IVPUSH PRN (19:03)
[2022-10-11] MEDS ORDERED: oxyCODONE HCL 5 MG TABLET PO PRN (19:03)
[2022-10-11] MEDS ORDERED: ACETAMINOPHEN 325 MG TABLET (FP) PO PRN (19:03)
[2022-10-11] MEDS ORDERED: FENTANYL CITRATE/PF 50 MCG/ML VIAL IVPUSH PRN (19:07)
[2022-10-11] MEDS ORDERED: LACTATED RINGERS SOLUTION 1,000 ML IV SCH (19:15)
[2022-10-11] MEDS ORDERED: DOCUSATE SODIUM 100 MG CAPSULE (FP) PO PRN (20:20)
[2022-10-11 20:46] VITALS: BMI 30.3
[2022-10-11] MEDS: MEROPENEM 1 GM in DEXTROSE 5%-WATER 100 ML IVPB SCH (22:36)
[2022-10-12] MEDS: ACETAMINOPHEN 500 MG TABLET (FP) PO SCH ×4 (01:19→18:38)
[2022-10-12] MEDS: MEROPENEM 1 GM in DEXTROSE 5%-WATER 100 ML IVPB SCH (01:20)
[2022-10-12 08:57] LABS: EOS % 9.2 % (0-4.5); HEMATOCRIT 34.7 % (32.4-45.2); HEMOGLOBIN 11.9 GM/dL (10.7-15.3); LYMPH % 20.3 % (8-40); MCH 30.3 pg (25.7-33.7); MCHC 34.2 g/dl (32.0-36.0); MEAN CELL VOLUME 88.7 fl (80-96); MEAN PLT VOLUME 8.4 fl (7.5-11.1); NEUT % 61.5 % (42.8-82.8); PLATELET COUNT 220 10^3/uL (134-434); RBC 3.91 M/mm3 (3.60-5.2); RDW 14.1 % (11.6-15.6)
[2022-10-12 09:18] LABS: BLOOD UREA NITROGEN 19.3 mg/dL (7-18)
[2022-10-12 09:21] LABS: CREATININE 1.1 mg/dL (0.55-1.3)
[2022-10-12] MEDS ORDERED: MEROPENEM 1 GM in DEXTROSE 5%-WATER 100 ML IVPB SCH (10:00)
[2022-10-12] MEDS: CEFTRIAXONE 1 GM in DEXTROSE 5%-WATER - 50 ML IVPB SCH (13:42)
[2022-10-12] MEDS: POLYETHYLENE GLYCOL (HEALTHYLAX) 3350 17 GM PACKET PO SCH (13:43)
[2022-10-12] MEDS ORDERED: COLLAGENASE CLOSTRIDIUM HIST. 30 GRAMS TUBE TP SCH (15:30)
[2022-10-12] MEDS ORDERED: ALPRAZolam 0.25 MG TABLET PO PRN (17:36)
[2022-10-12] MEDS: COLLAGENASE CLOSTRIDIUM HIST. 30 GRAMS TUBE TP SCH (18:40)
[2022-10-12] MEDS: APIXABAN 2.5 MG TABLET PO SCH (22:46)
[2022-10-13] MEDS: ACETAMINOPHEN 500 MG TABLET (FP) PO SCH ×4 (00:31→18:30)
[2022-10-13] MEDS: LEVOTHYROXINE NA 100 MCG TABLET (FP) PO SCH (07:40)
[2022-10-13] MEDS: APIXABAN 2.5 MG TABLET PO SCH ×2 (10:08→22:42)
[2022-10-13] MEDS: CEFTRIAXONE 1 GM in DEXTROSE 5%-WATER - 50 ML IVPB SCH (10:08)
[2022-10-13] MEDS: POLYETHYLENE GLYCOL (HEALTHYLAX) 3350 17 GM PACKET PO SCH (10:08)
[2022-10-13 10:16] LABS: BASO % 0.8 % (0-2.0); EOS % 10.5 % (0-4.5); HEMATOCRIT 35.1 % (32.4-45.2); LYMPH % 28.1 % (8-40); MCH 30.4 pg (25.7-33.7); MCHC 34.3 g/dl (32.0-36.0); MEAN CELL VOLUME 88.6 fl (80-96); MONO % 8.2 % (3.8-10.2); NEUT % 52.4 % (42.8-82.8); PLATELET COUNT 242 10^3/uL (134-434); RBC 3.96 M/mm3 (3.60-5.2); RDW 14.3 % (11.6-15.6); WHITE BLOOD COUNT 6.9 K/mm3 (4.0-10.0)
[2022-10-13 10:47] LABS: ALBUMIN 3.5 g/dl (3.4-5.0); BLOOD UREA NITROGEN 25.9 mg/dL (7-18); CALCIUM 8.7 mg/dL (8.5-10.1); MAGNESIUM 2.2 mg/dL (1.8-2.4)
[2022-10-13 10:51] LABS: CREATININE 1.2 mg/dL (0.55-1.3)
[2022-10-13 10:52] LABS: BILIRUBIN,TOTAL 0.8 mg/dL (0.2-1)
[2022-10-13 10:53] LABS: TOT PROT 6.6 g/dl (6.4-8.2)
[2022-10-13] MEDS: COLLAGENASE CLOSTRIDIUM HIST. 30 GRAMS TUBE TP SCH (11:02)
[2022-10-13] MEDS: DOCUSATE SODIUM 100 MG CAPSULE (FP) PO SCH (13:31)
[2022-10-13] MEDS: VANCOMYCIN/WATER FOR INJ (PEG) 1,000 MG/200 ML BAG IVPB SCH (13:31)
[2022-10-14] MEDS: ACETAMINOPHEN 500 MG TABLET (FP) PO SCH ×3 (00:34→12:17)
[2022-10-14 07:54] VITALS: RESP 20
[2022-10-14] MEDS: LEVOTHYROXINE NA 100 MCG TABLET (FP) PO SCH (07:56)
[2022-10-14 09:54] LABS: BASO % 0.9 % (0-2.0); HEMATOCRIT 35.6 % (32.4-45.2); LYMPH % 31.5 % (8-40); MCH 29.8 pg (25.7-33.7); MCHC 33.7 g/dl (32.0-36.0); MEAN CELL VOLUME 88.6 fl (80-96); MEAN PLT VOLUME 8.7 fl (7.5-11.1); NEUT % 48.6 % (42.8-82.8); PLATELET COUNT 246 10^3/uL (134-434); RBC 4.01 M/mm3 (3.60-5.2); RDW 14.3 % (11.6-15.6)
[2022-10-14 10:01] LABS: BILIRUBIN,TOTAL 0.3 mg/dL (0.2-1); TOT PROT 6.4 g/dl (6.4-8.2)
[2022-10-14 10:03] LABS: ALBUMIN 3.4 g/dl (3.4-5.0); BLOOD UREA NITROGEN 25.6 mg/dL (7-18)
[2022-10-14 10:05] LABS: CREATININE 1.2 mg/dL (0.55-1.3)
[2022-10-14 10:06] LABS: CALCIUM 8.8 mg/dL (8.5-10.1); MAGNESIUM 2.1 mg/dL (1.8-2.4)
[2022-10-14] MEDS: DOCUSATE SODIUM 100 MG CAPSULE (FP) PO SCH (10:48)
[2022-10-14] MEDS: POLYETHYLENE GLYCOL (HEALTHYLAX) 3350 17 GM PACKET PO SCH (10:49)
[2022-10-14] MEDS: COLLAGENASE CLOSTRIDIUM HIST. 30 GRAMS TUBE TP SCH (10:49)
[2022-10-14] MEDS: APIXABAN 2.5 MG TABLET PO SCH (10:49)
[2022-10-14] MEDS: VANCOMYCIN/WATER FOR INJ (PEG) 1,000 MG/200 ML BAG IVPB SCH (12:17)
[2022-10-14 15:03] VITALS: BP 122/47; PULSE 71; TEMP 98.1
== END 2022-10-14 18:02 | disposition home or self-care (01) ==
LOC: JER 12:41 → UNDOADMIN 16:41 → JERBED 16:41 → JER 18:42 → JERBED 20:21 → J8W 20:21 → SUATTDRO 10-12 00:01 → JASUSAT 10-12 00:01 → J8W 10-12 08:49 → JASUSAT 10-14 18:02
PROVIDERS: ATTEND Nurse Practitioner Acute Care
PROC: 0J990ZX Drainage of Buttock Subcutaneous Tissue and Fascia, Open Approach, Diagnostic (ICD-10-PCS; principal; 2022-10-12)
DX: M79.9 Soft tissue disorder, unspecified (principal)
CPT/HCPCS: 0241U-QW; 36415; 80048; 80053; 83735; 84100; 84436; 84443; 84480; 85025; 85610; 85730; 86140; 86850; 86900; 86901; 87070; 87186; 87205; 93005; 93010; 94760; 99285-25

== ENCOUNTER 2024-07-09 04:11 | Day surgery (SDC) | payer OTHER, BC ==
[2024-07-08 11:37] VITALS: BMI 32.4
[2024-07-09] MEDS ORDERED: ACETAMINOPHEN 500 MG TABLET (FP) PO PRN (08:42)
[2024-07-09 13:25] VITALS: PULSE 52; TEMP 97.3
[2024-07-09 13:42] VITALS: BP 145/68; RESP 18
== END 2024-07-09 14:14 | disposition home or self-care (01) ==
LOC: JASU-SURG 04:11
PROVIDERS: ATTEND Pain Medicine Pain Medicine
PROC: 3E0R3BZ Introduction of Anesthetic Agent into Spinal Canal, Percutaneous Approach (ICD-10-PCS; 2024-07-09)
PROC: 3E0R33Z Introduction of Anti-inflammatory into Spinal Canal, Percutaneous Approach (ICD-10-PCS; principal; 2024-07-09 13:00)
DX: M54.16 Radiculopathy, lumbar region (principal); M48.061 Spinal stenosis, lumbar region without neurogenic claudication
CPT/HCPCS: 76000-TC-FY

== ENCOUNTER 2024-12-05 16:22 | Emergency (ER) | payer OTHER, BC ==
[2024-12-05 16:40] VITALS: BMI 29.3
[2024-12-05] MEDS ORDERED: ACETAMINOPHEN 325 MG TABLET (FP) ONE (17:24)
[2024-12-05] MEDS: ACETAMINOPHEN 325 MG TABLET (FP) PO ONE (17:29)
[2024-12-05 19:27] VITALS: BP 165/68; PULSE 80; RESP 18; TEMP 98.8
== END 2024-12-05 19:27 | disposition home or self-care (01) ==
LOC: JER 16:22
DX: S09.90XA Unspecified injury of head, initial encounter (principal); W22.8XXA Striking against or struck by other objects, initial encounter
CPT/HCPCS: 70450-TC; 99284-25

== ENCOUNTER 2025-02-11 06:16 | Day surgery (SDC) | payer OTHER, BC ==
[2025-02-10 12:08] VITALS: BMI 29.0
[2025-02-11] MEDS ORDERED: LIDOCAINE HCL/PF 1% SDV 5ML VIAL ONE (07:19)
[2025-02-11] MEDS ORDERED: DEXAMETHASONE SOD PHOSPHATE 10 MG/1 ML VIAL ONE (07:19)
[2025-02-11] MEDS ORDERED: ACETAMINOPHEN 500 MG TABLET (FP) PO PRN (08:56)
[2025-02-11] MEDS: LIDOCAINE HCL 1% PRESERVATIVE FREE - 30ML VIAL IJ ONE ×2 (11:07)
[2025-02-11] MEDS: IOHEXOL 180 MG/1 ML ML IJ ONE ×2 (11:07)
[2025-02-11] MEDS: DEXAMETHASONE SOD PHOSPHATE 10 MG/1 ML VIAL IVPUSH ONE ×2 (11:07)
[2025-02-11 13:34] VITALS: BP 110/76; PULSE 68; RESP 18; TEMP 97.9
== END 2025-02-11 12:03 | disposition home or self-care (01) ==
LOC: JASU-SURG 06:16
PROVIDERS: ATTEND Pain Medicine Pain Medicine
PROC: 3E0R3BZ Introduction of Anesthetic Agent into Spinal Canal, Percutaneous Approach (ICD-10-PCS; 2025-02-11)
PROC: 3E0R33Z Introduction of Anti-inflammatory into Spinal Canal, Percutaneous Approach (ICD-10-PCS; principal; 2025-02-11 10:45)
DX: M48.061 Spinal stenosis, lumbar region without neurogenic claudication (principal); M54.16 Radiculopathy, lumbar region
CPT/HCPCS: 76000-TC-FY; J1100